=== PATIENT | male | born 1945 | race Caucasian/White ===

== ENCOUNTER 2019-03-26 07:56 | Inpatient (IN) | payer MEDICARE ==
[~2019-03-26] VITALS: Ht 167.7 cm; Wt 70.8 kg
[2019-03-26] MEDS ORDERED: LOPERAMIDE 2 MG (IMODIUM) TABLET PO PRN (08:45)
[2019-03-26] MEDS ORDERED: ALPRAZolam 0.25 MG (XANAX) TAB PO PRN (08:45)
[2019-03-26] MEDS ORDERED: ONDANSETRON 4 MG (ZOFRAN) ORAL DISSOLVE TAB PO PRN (08:45)
[2019-03-26] MEDS ORDERED: LACTULOSE SYRUP 10GM/15ML (ENULOSE) 30ML UDC PO PRN (08:45)
[2019-03-26] MEDS ORDERED: MELATONIN 3 MG TABLET PO PRN (08:45)
[2019-03-26] MEDS ORDERED: ACETAMINOPHEN 500 MG TAB (TYLENOL) PO PRN (08:45)
[2019-03-26] MEDS ORDERED: DOCUSATE SODIUM 100 MG (COLACE) CAP PO PRN (08:45)
[2019-03-26] MEDS ORDERED: diphenhydrAMINE 25 MG TAB (BENADRYL) PO PRN (08:45)
--- NOTE | 2019-03-26 10:00 | NUR ---
Pietrochantal Cabral admitted to room 231-1, with an admitting diagnosis of L 3-4 LIF with Right Facetectomy, on 03/26/19 from [facility] via private vehicle, accompanied by .PIETRO CABRAL introduced to surroundings, call light, bed controls, phone, TV, temperature control, lights, meal times, smoking policy, visitor policy, side rail policy, bathrooms and showers. Patient Rights given to patient in the handbook.PIETRO CABRAL verbalizes understanding that [facility] is not responsible for the loss or damage to any personal effects or valuables that are kept in the patients possession during their hospitalization. The following Patient Care Plans were discussed with the patient and : Discharge Planning,Impaired Mobility, and Post Surgical Cares. PIETRO CABRAL verbalizes understanding of Interdisciplinary Patient Education. Patient received Patient Rights Booklet, which includes Privacy Act Statement and Data Collection Information Summary.
[2019-03-26] MEDS: SENNA W/DOCUSATE (SENOKOT S) TABLET PO SCH ×2 (11:12→20:53)
[2019-03-26] MEDS: POLYETHYLENE GLYCOL 17 GM (MIRALAX) PACK PO SCH ×2 (11:12→20:54)
--- NOTE | 2019-03-26 11:28 | Occupational Therapy Eval ---
OT Evaluation-General/PLF Medical Diagnosis Admission Date Mar 26, 2019 at 10:00 Medical Diagnosis: L3-4 DLIF/PSF Right facectomy Onset Date: Mar 24, 2019 Therapy Diagnosis Therapy Diagnosis: Weakness Weight Bear Status Weight Bearing Restriction: Weight Bearing/Tolerated Back brace on when up Referral Physician: Dr. 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 8-Aasfbrigqh-tnfnviz completes the activity by him/herself with no assistance from a helper. 5-Set-up or Clean-up Assistance-helper sets up or cleans up; patient completes activity. [place] assists only prior to or following the activity. 4-Supervision or Touching Assistance-helper provides verbal cues and/or touching/steadying and/or contact guard assistance as patient completes activity. Assistance may be provided throughout the activity or intermittently. 3-Partial/Moderate Assistance-helper does LESS THAN HALF the effort. [place] lifts, holds or supports trunk or limbs, but provides less than half the effort. 2-Substantial/Maximal Assistance-helper does MORE THAN HALF the effort. [place] lifts or holds trunk or limbs and provides more than half the effort. 5-Zbzoldrkq-hlvvbh does ALL the effort. Patient does none of the effort to complete the activity. Or, the assistance of 2 or more helpers is required for the patient to complete the activity. If activity was not attempted, code reason: 7-Patient Refused. 9-Not Applicable-not attempted and the patient did not perform the activity before the current illness, exacerbation or injury. 10-Not Attempted due to Environmental Limitations-(lack of equipment, weather restraints, etc.). 88-Not Attempted due to Medical Conditions or Safety Concerns. ADL PLOF Comments Pt. used a cane occasionally but was generally independent with ADLs. Self Care: Independent Functional Cognition: Unknown DME/Equipment: Shower DME/Equipment Comments Pt. has walker as well. Drive Self: Yes OT Current Status Subjective Pt. reports 01/15. Pt. has just arrived. Nursing working on medications. Appearance Pt. up with back brace on. Mental Status/Objective Patient Orientation: Person Current Hand Dominance: Right Upper Extremity ROM Pt. is able to lift bilateral UE to approximately 100 degrees. Upper Extremity Strength NT due to back surgery. ADL-Treatment Eating (QC): 7 Oral Hygiene (QC): 7 Shower/Bathe Self (QC): 88 Upper Body Dressing (QC): 7 Lower Body Dressing (QC): 7 On/Off Footwear (QC): 1 Toileting Hygiene (QC): 7 Toilet Transfer (QC): 7 Other Treatments Pt. seen for partial co-treatment with PT. Due to fatigue, car ride, pain, and limited ability, OT facilitated ADL treatment while PT focused on mobility and transfers. Pt. ambulated with CGA with slow paces. Assist of two to ambulate up/down steps, (see PT note.) Ambulated back to room and declines all attempts to toilet, change clothes. Pt. requests to lay down. Attempted to doff socks but unable to bring feet up to him while seated. Pt. able to doff back brace with slow movements. Mod assist for sit-supine and max assist for bed mobility with this therapist. Pt. immediately fell asleep. All needs met. Education OT Patient Education: Correct positioning, Modified ADL techniques, Progress adri [place] Goal/Update tx plan, Purpose of tx/functional activities, Reviewed precautions, Rehab process, Transfer techniques Teaching Recipient: Patient, Family Teaching Methods: Demonstration, Discussion Response to Teaching: Verbalize Understanding, Return Demonstration OT Short Term Goals Short Term Goals Time Frame: Apr 02, 2019 Eating(FIM): 5 Grooming(FIM): 4 Bathing(FIM): 4 Upper Body Dressing(FIM): 4 Lower Body Dressing(FIM): 4 Toileting(FIM): 4 Transfers (B,C,W/C) (FIM): 4 Toilet/Commode Transfer(FIM): 4 Shower Transfer(FIM): 4 Additional Short Term Goals: 1-Demonstrate ADL Tasks, 2-Verbalize Understanding, 3-ImproveStrength/Edmund 1=Demonstrate adherence to instructed precautions during ADL tasks. 2=Patient will verbalize/demonstrate understanding of assistive devices/modifications for ADL. 3=Patient will improve strength/tolerance for activity to enable patient to perform ADL's. OT Fci Goals Fci Goals Time Frame: Apr 09, 2019 Eating (QC): 6 Oral Hygiene (QC): 6 Shower/Bathe Self (QC): 4 Upper Body Dressing (QC): 5 Lower Body Dressing (QC): 5 On/Off Footwear (QC): 5 Toileting Hygiene (QC): 6 Toilet/Commode Transfer (QC): 6 Additional Goals: 1-Demonstrate ADL Tasks, 2-Verbalize Understanding, 3- ImproveStrength/Edmund 1=Demonstrate adherence to instructed precautions during ADL tasks. 2=Patient will verbalize/demonstrate understanding of assistive devices/modifications for ADL. 3=Patient will improve strength/tolerance for activity to enable patient to perform ADL's. OT Education/Plan Problem List/Assessment Assessment: Decreased Activ Tolerance, Decreased UE Strength, Dependent Transfers, Impaired Bed Mobility, Impaired Funct Balance, Impaired I ADL's, Impaired Self-Care Skills, Restricted Funct UE ROM Discharge Recommendations Plan/Recommendations: Continue POC Therapy Discharge Recommendati: Post Acute OT Equpiment Recommendations-D/C: Bath Chair, Hip Kit Treatment Plan/Plan of Care Treatment,Training & Education: Yes Patient would benefit from OT for education, treatment and training to promote independence in ADL's, mobility, safety and/or upper extremity function for ADL's. Plan of Care: ADL Retraining, Functional Mobility, UE Funct Exercise/Act Treatment Duration: Apr 09, 2019 Frequency: At least 5 of 7 days/Wk (IRF) Estimated Hrs Per Day: 1.5 hours per day Agreement: Yes Rehab Potential: Good Time/GCodes Start Time: 10:45 Stop Time: 11:10 Total Time Billed (hr/min): 25 Billed Treatment Time 2843-4578 1, EVM x 10minutes- co-treat with PT, no PT charge Please see above for designated roles. [id number] ADL x 15minutes ZACHERY SULLIVAN OT Mar 26, 2019 11:27
[2019-03-26 11:49] VITALS: BP 142/85
--- NOTE | 2019-03-26 11:53 | Physical Therapy Evaluation ---
PT Evaluation-General Medical Diagnosis Admission Date Mar 26, 2019 at 10:00 Medical Diagnosis: L3-4 DLIF/PSF Right facectomy Onset Date: Mar 24, 2019 Therapy Diagnosis Therapy Diagnosis: weakness, decreased functional mobility Precautions Precautions/Isolations: Fall Prevention, Standard Precautions Weight Bear Status Right Lower Extremity: Right Full Weight Bearing Left Lower Extremity: Left Full Weight Bearing Referral Physician: Dr. Saldana Reason for Referral: Evaluation/Treatment Medical History Pertinent Medical History: CVA, HTN Additional Medical History TIA, mass in lungs, OA, back Sx x 2 (Most recent L4-5 PSIF three years ago), early dementia Current History Pt underwent L3-4 DLIF/PSF (R) facetomy on 03/24 at outside facility. Transfer to ARU this date. Reviewed History: Yes Social History Home: Single Level Current Living Status: Spouse Entry Into Home: Stairs With Railing PT Steps Into Home: 5 Prior Prior Level of Function SCALE: Activities may be completed with or without assistive devices. 7-Pqinlodfqm-lwaccto completes the activity by him/herself with no assistance from a helper. 5-Set-up or Clean-up Assistance-helper sets up or cleans up; patient completes activity. [place] assists only prior to or following the activity. 4-Supervision or Touching Assistance-helper provides verbal cues and/or touching/steadying and/or contact guard assistance as patient completes a ctivity. Assistance may be provided throughout the activity or intermittently. 3-Partial/Moderate Assistance-helper does LESS THAN HALF the effort. [place] lifts, holds or supports trunk or limbs, but provides less than half the effort. 2-Substantial/Maximal Assistance-helper does MORE THAN HALF the effort. [place] lifts or holds trunk or limbs and provides more than half the effort. 1-Bbfcehrqb-yccvcg does ALL the effort. Patient does none of the effort to complete the activity. Or, the assistance of 2 or more helpers is required for the patient to complete the activity. If activity was not attempted, code reason: 7-Patient Refused. 9-Not Applicable-not attempted and the patient did not perform the activity before the current illness, exacerbation or injury. 10-Not Attempted due to Environmental Limitations-(lack of equipment, weather restraints, etc.). 88-Not Attempted due to Medical Conditions or Safety Concerns. Bed Mobility: 6 Transfers (B,C,W/C): 6 Gait: 6 Stairs: 6 Indoor Mobility (Ambulation): Independent Stairs: Independent Prior Devices Use: Other-see list below Prior Device Use: occasional use of SPC for balance PT Evaluation-Current Subjective Pt in [facility], agreeable to PT. Reports that (R) LE radicular pain that was present prior to surgery is gone "But this (L) hip is really giving me trouble". Rates (R) hip and low back at 2/10, (L) posterior hip at 7/10. Objective Patient Orientation: Person, Place, Time, Situation Problem Solving: Fair Attachments: Other-See Comments Back brace on when up ROM/Strength ROM Upper Extremities See OT ROM Lower Extremities Grossly WFL for functional mobility Strength Upper Extremities See OT Strength Lower Extremities Grossly 3/5. No resistance given due to recent lumbar Sx Integumentary/Posture Integumentary See nurses' notes Posture Flexed posture, forward head Neuromuscular (Tone, Coordination, Reflexes) Grossly WFL Sensory Vision: Wears Glasses (reading only) Hearing: Functional Hand Dominance: Right Sensation Right Lower Extremit: Intact Sensation Left Lower Extremity: Intact Transfers Roll Left to Right (QC): 4 Sit to Lying (QC): 2 Lying to Sitting/Side of Bed(Q: 2 Sit to Stand (QC): 3 Chair/Tdx-wp-Rsijb Xfer(QC): 4 Car Transfer (QC): 3 Gait Does the Patient Walk?: Yes Mode of Locomotion: Walk Anticipated Mode of Locomotion: Walk Distance (FIM): 3=150 ft Walk 10 feet (QC): 4 Walk 50 ft with 2 Turns(QC): 4 Walk 150 ft (QC): 4 Walking 10ft/uneven surface-QC: 4 Distance: 150 Gait Assistive Device: FWW Comments/Gait Description Very slow, shuffling gait. Narrow base of support, flexed posture. Wheelchair Training Does the Pt Use a Wheelchair?: No Stairs #of Steps: 4 1 Step (curb) (QC): 4 4 Steps (QC): 4 12 Steps (QC): 88 12 steps not attempted due to high pain rating in (L) hip and recent lumbar surgery. At PLOF, Pt only performed 5 steps (shorter than standard height) Balance Sitting Static: Good Sitting Dynamic: Good Standing Static: Fair Standing Dynamic: Fair Picking up an Object (QC): 88 (Not attempted due to recent back surgery/back precautions) Treatment Gait training on stairs; Frequent skilled VCS for safe sequencing on stairs. Hand-off to OT. Assessment/Needs Pt is 2 days s/p L3-4 DLIF/PSF (R) facetomy. Pt would benefit from skilled PT to improve functional strength and (I) with functional mobility to allow safe return home with spouse with decreased caregiver burden. Rehab Potential: Good PT Short Term Goals Short Term Goals Time Frame: Mar 30, 2019 Gait Distance Comment: 150 mod (I) Gait Assistive Device: FWW PT Glass Block Installer Goals Glass Block Installer Goals PT Glass Block Installer Goals Time Frame: Apr 09, 2019 Sit to Lying (QC): 6 Lying-Sitting on Side/Bed(QC): 6 Sit to Stand (QC): 6 Roll Left to Right (QC): 6 Chair/Rnj-xm-Jpzrr Xfer(QC): 6 Car Transfer (QC): 5 Does the Patient Walk: Yes Distance: 150 Walk 10 feet (QC): 6 Walk 10ft-Uneven Surface(QC): 6 Walk 50ft with 2 Turns (QC): 6 Walk 150 ft (QC): 6 Gait Level of Assist: 6 Gait Assistive Device: FWW Does the Pt use WC or Scooter?: No 1 Step (curb) (QC): 5 4 Steps (QC): 5 12 Steps (QC): 4 Stairs Level Of Assist: 5 Picking up an Object (QC): 4 (with adaptive equipment to remain compliant with back precautions) LTGs established to allow safe return home with spouse with decreased caregiver burden PT Plan Problem List Problem List: Activity Tolerance, Functional Strength, Safety, Balance, Gait, Transfer, Bed Mobility, ROM Treatment/Plan Treatment Plan: Continue Plan of Care Treatment Plan: Bed Mobility, Education, Functional Activity Edmund, Functional Strength, Group Therapy, Gait, Safety, Therapeutic Exercise, Transfers Treatment Duration: Apr 09, 2019 Frequency: At least 5 of 7 days/Wk (IRF) Estimated Hrs Per Day: 1.5 hours per day Patient and/or Family Agrees t: Yes Safety Risks/Education Patient Education: Transfer Techniques Teaching Recipient: Patient Teaching Methods: Discussion Response to Teaching: Reinforcement Needed Reviewed log-rolling, back precautions. Reviewed role of PT and expectations on ARU. Discharge Recommendations Therapy Discharge Recommendati: Post Acute PT (Continue to assess but possible HH for home safety eval) Barriers to Progress reported early dementia Time/GCodes Time In: 1019 Time Out: 1103 Total Billed Treatment Time: 34 Total Billed Treatment [id number] Eval (mod) x 24' [id number] (unattended for OT eval) 1141-4408 (gait training on stairs) NATHALIE RAPHAEL DPJaguar Mar 26, 2019 11:53
--- NOTE | 2019-03-26 12:34 | PM&R H&P / Post Admit Assess ---
History of Present Illness HPI/Chief Complaint Chief complaint: Debility following lumbar spine surgery with myelopathy History of present illness: This is a 74-year-old white male clinic patient of Dr. Dougherty who has a past medical history of hypertension, hyperlipidemia, BPH managed by urology Dr. Woods and transition ischemic attacks with subsequent presumed vascular dementia managed by neurology at [facility] who presents following an uncomplicated lumbar spine surgery but having a slow recovery in need of intensive rehabilitation prior to going home with his . He is having quite a bit of poor recall did not recall having surgery but he does remember talking to me for 2 days over at [place] at [facility] where I was consulted. He was having urinary retention shortly after surgery so I did go ahead and recheck out to his urologist who gave the nurse orders for post void residual bladder scanning. He has not had a bowel movement since before surgery. His is very aware of the fact that dementia will preclude a fast recovery but he is in the midst of evaluation from PT and OT in order to regain as much function as quickly as possible. He denies any current pain. I do review his home medication and my consult report. Source: patient, RN/MD, old records Exam Limitations: clinical condition, other (dementia) Date Seen 03/26/19 Time Seen by a Provider: 12:00 Attending Physician Annette Saldana DO PCP Helder Dougherty MD Referring Physician Date of Admission Mar 26, 2019 at 10:00 Home Medications & Allergies Home Medications Reviewed patient Home Medication Reconciliation performed by pharmacy medication reconciliations strain technician and/or nursing. Patients Allergies have been reviewed. 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) Alcohol Use: Denies Use Recreational Drug Use: No Smoking Status: Current Everyday Smoker Type Used: Electronic/Vapor Physical Abuse Screen: No Sexual Abuse: No Recent Foreign Travel: No Contact w/other who traveled: No Recent Infectious Disease Expo: No Past Medical History Surgeries: Orthopedic hernia repair 2 small lung mass Cardiac: High Cholesterol, Hypertension Neurological: Dementia, TIA Genitourinary: Benign Prostatic Hyperpl Gastrointestinal: Chronic Constipation Musculoskeletal: Arthritis, Chronic Back Pain Endocrine: Diabetes, Non-Insulin dep Review of Systems Constitutional: see HPI, dizziness, malaise, weakness EENTM: no symptoms reported Respiratory: no symptoms reported Cardiovascular: no symptoms reported Gastrointestinal: constipation Genitourinary: decreased output, incontinence Musculoskeletal: back pain, joint pain Skin: no symptoms reported Psychiatric/Neurological: Depressed All Other Systems Reviewed Negative Unless Noted: Yes Physical Exam Exam Vital Signs Vital Signs Date Time Temp Pulse Resp B/P (MAP) Pulse Ox O2 Delivery O2 Flow Rate FiO2 03/26/19 11:49 37.2 116 20 142/85 95 Room Air Capillary Refill : General Appearance: No Apparent Distress, WD/WN, Chronically ill, Thin, Other (frail) HEENT: PERRL/EOMI, Normal ENT Inspection, Pharynx Normal, Moist Mucous Membranes Neck: Full Range of Motion, Normal Inspection, Non Tender, Supple Respiratory: Chest Non Tender, Lungs Clear, Normal Breath Sounds, No Accessory Muscle Use, No Respiratory Distress Cardiovascular: Regular Rate, Rhythm, No Edema, No Gallop, No JVD, No Murmur Gastrointestinal: Normal Bowel Sounds, No Organomegaly, No Pulsatile Mass, Non Tender, Soft Back: Decreased Range of Motion, Muscle Spasm, Vertebral Tenderness Extremity: Normal Capillary Refill, Normal Inspection, Normal Range of Motion, Non Tender, No Calf Tenderness, No Pedal Edema Neurologic/Psychiatric: Alert, No Motor/Sensory Deficits, certified pathology assistant II-XII Norm as Tested, Depressed Affect, Other (poor memory recall) Skin: Normal Color, Warm/Dry Lymphatic: No Adenopathy Results Results/Procedures Labs Patient resulted labs reviewed. Assessment/Plan Assessment and Plan Assess & Plan/Chief Complaint Assessment: Status post uncomplicated lumbar spine surgery with myelopathy with slow recovery Dementia TIA history Smoker Hypertension Hyperlipidemia Chronic constipation BPH New urinary incontinence Diabetes mellitus Plan: Appreciate urology consultation Inpatient rehabilitation protocol Pain control Monitor blood sugar Check labs in a.m. Bowel regimen (1) Lumbar myelopathy (2) Dementia (3) Hx TIA/stroke w/o resid (4) Smoker (5) Hypertension (6) Hyperlipidemia (7) Diabetes mellitus (8) BPH (benign prostatic hyperplasia) (9) Urinary incontinence (10) Constipation (11) Frailty Post Admission Physician Asses Date seen by provider: Mar 26, 2019 Time seen by provider: 12:00 Admisison Dx: (1) Lumbar myelopathy The preadmission screen agrees with the post admission assessment that the patient is a good candidate for inpatient rehabilitation. The patient will have a comprehensive program of inpatient rehabilitation with a goal of maximizing level of functional independence prior to discharge home with . The patient will have PT/OT ninety minutes per day, each discipline, five days a week for gait, strengthening, conditioning, balance, ADLs, any patient/family/caregiver training as necessary. Speech therapy to do cognitive assessment and treat as indicated. Rehabilitation nursing to assist with bowel, bladder, skin, wound care, medication administration, pain management. Mining Machinery Assembler to assist with discharge planning, community reentry. SCD's for DVT prophylaxis. He appears to be well motivated to participate in three hours of therapy a day. He should be able to tolerate three hours of therapy a day from a medical standpoint. He should benefit from the three hours of therapy a day. He has a reasonable discharge plan, reasonable discharge rehabilitation goals and a supportive family. He has various comorbidities that need to be closely monitored with medications and treatments adjusted on a daily basis as needed. These include: See list Barriers to discharge for this patient who had been independent prior to this are for him to be modified independent to supervision for ADLs and mobility skills prior to discharge home with , so as to lessen the burden of the car egivers. Risks for this patient include: 1. Fall 2. Fracture 3. DVT 4. Pulmonary embolism 5. Wound infection 6. Skin breakdown 7. Contractures 8. Poorly controlled pain 9. Urinary retention 10. UTI 11. Respiratory infection 12. Aspiration Estimated Length of Stay: 14 days Prognosis: Rehab prognosis appears good for goal of discharge home with modified independent to supervision for ADLs and mobility skills. ANNETTE SALDANA DO Mar 26, 2019 12:34
[2019-03-26] MEDS ORDERED: BACLOFEN 10 MG (LIORESAL) TAB PO PRN (12:45)
[2019-03-26] MEDS ORDERED: MULTIVIT W/MINERALS TAB (THERAGRAN M) PO ONE (12:45)
[2019-03-26] MEDS: HYDROcodone/APAP 10 MG/325 MG (LORTAB) TAB PO PRN ×2 (13:48→19:40)
--- NOTE | 2019-03-26 14:30 | NUR ---
Pt states she does not feel up bathing today. Pt states she would just like to go to bed and relax. Pt refuses incision site bandage change. Bandage is intact/clean/dry. Addendum: 03/26/19 at 1603 by DAYNA MEMBRENO RN Disregard note
[2019-03-26] MEDS ORDERED: FLU QUADRIvalent (5+ YOA) 2019-2020 (AFLURIA) 0.5 ML IM ONE (14:45)
[2019-03-26] MEDS: metFORMIN 500 MG (GLUCOPHAGE) TAB PO SCH (17:49)
[2019-03-26] MEDS: TROSPIUM 20 MG (SANCTURA) TAB PO SCH (17:49)
[2019-03-26] MEDS: TAMSULOSIN 0.4 MG (FLOMAX) CAP PO SCH (17:50)
[2019-03-26 18:00] VITALS: BP 150/98
[2019-03-26 20:51] VITALS: BP 170/96
[2019-03-26] MEDS: NIACIN 500 MG TABLET PO SCH (20:53)
[2019-03-26] MEDS: TOLTERODINE LA 4 MG (DETROL) CAP PO SCH (20:54)
[2019-03-26] MEDS: TERAZOSIN 2 MG (HYTRIN) CAP PO SCH (20:54)
[2019-03-26] MEDS: eZETimibe 10 MG (ZETIA) TABLET PO SCH (20:54)
[2019-03-26] MEDS: GABAPENTIN 100 MG (NEURONTIN) CAP PO SCH (20:54)
[2019-03-26 21:42] VITALS: BP 160/92
[2019-03-26 22:51] VITALS: BP 158/84
[2019-03-27] MEDS: HYDROcodone/APAP 10 MG/325 MG (LORTAB) TAB PO PRN ×4 (01:59→21:04)
[2019-03-27 05:29] VITALS: BP 150/78
[2019-03-27 05:40] LABS: BASOPHILS % (AUTO) 0 % (0-10); EOSINOPHILS % (AUTO) 0 % (0-10); HEMATOCRIT 35 % (40-54); HEMOGLOBIN 11.8 G/DL (13.3-17.7); LYMPHOCYTES # (AUTO) 1.8 X 10^3 (1.0-4.0); LYMPHOCYTES % (AUTO) 20 % (12-44); MEAN CORPUSCULAR HEMOGLOBIN 30 PG (25-34); MEAN CORPUSCULAR HGB CONC 34 G/DL (32-36); MEAN CORPUSCULAR VOLUME 89 FL (80-99); MONOCYTES # (AUTO) 1.3 X 10^3 (0.0-1.0); MONOCYTES % (AUTO) 14 % (0-12); NEUTROPHILS # (AUTO) 5.9 X 10^3 (1.8-7.8); NEUTROPHILS % (AUTO) 65 % (42-75); PLATELET COUNT 266 10^3/uL (130-400); RED CELL DISTRIBUTION WIDTH 14.2 % (10.0-14.5)
[2019-03-27] MEDS: TROSPIUM 20 MG (SANCTURA) TAB PO SCH ×2 (05:58→17:04)
[2019-03-27] MEDS: metFORMIN 500 MG (GLUCOPHAGE) TAB PO SCH ×2 (06:00→17:04)
[2019-03-27 06:12] LABS: ALANINE AMINOTRANSFERASE 14 U/L (0-55); ALBUMIN 3.5 GM/DL (3.2-4.5); ALKALINE PHOSPHATASE 80 U/L (40-136); BILIRUBIN,TOTAL 1.1 MG/DL (0.1-1.0); BUN/CREATININE RATIO 18; CALCIUM 9.7 MG/DL (8.5-10.1); CARBON DIOXIDE 21 MMOL/L (21-32); CHLORIDE 102 MMOL/L (98-107); CREATININE SERUM 1.01 MG/DL (0.60-1.30); GFR ESTIMATED > 60; GLUCOSE 200 MG/DL (70-105); POTASSIUM 3.7 MMOL/L (3.6-5.0); SODIUM 136 MMOL/L (135-145); TOTAL PROTEIN 6.3 GM/DL (6.4-8.2)
[2019-03-27 08:29] VITALS: BP 135/70
[2019-03-27] MEDS: SENNA W/DOCUSATE (SENOKOT S) TABLET PO SCH ×2 (08:49→21:00)
[2019-03-27] MEDS: amLODIPine 5 MG (NORVASC) TAB PO SCH (08:49)
[2019-03-27] MEDS: LORATADINE (CLARITIN) 10 MG TAB PO SCH (08:49)
[2019-03-27] MEDS: LOSARTAN 100 MG (COZAAR) TABLET PO SCH (08:50)
[2019-03-27] MEDS: glipiZIDE 5 MG (GLUCOTROL) TAB PO SCH (08:54)
[2019-03-27] MEDS: POLYETHYLENE GLYCOL 17 GM (MIRALAX) PACK PO SCH ×2 (09:00→20:59)
--- NOTE | 2019-03-27 13:25 | PM&R Progress Note ---
Subjective HPI/CC On Admission Date Seen by Provider: Mar 27, 2019 Time Seen by Provider: 13:00 Chief complaint: Debility following lumbar spine surgery with myelopathy History of present illness: This is a 74-year-old white male clinic patient of Dr. Dougherty who has a past medical history of hypertension, hyperlipidemia, BPH managed by urology Dr. Woods and transition ischemic attacks with subsequent presumed vascular dementia managed by neurology at [facility] who presents following an uncomplicated lumbar spine surgery but having a slow recovery in need of intensive rehabilitation prior to going home with his . He is having quite a bit of poor recall did not recall having surgery but he does remember talking to me for 2 days over at [place] at [facility] where I was consulted. He was having urinary retention shortly after surgery so I did go ahead and recheck out to his urologist who gave the nurse orders for post void residual bladder scanning. He has not had a bowel movement since before surgery. His is very aware of the fact that dementia will preclude a fast recovery but he is in the midst of evaluation from PT and OT in order to regain as much function as quickly as possible. He denies any current pain. I do review his home medication and my consult report. Objective Exam Vital Signs Vital Signs Date Time Temp Pulse Resp B/P (MAP) Pulse Ox O2 Delivery O2 Flow Rate FiO2 03/27/19 09:00 Room Air 03/27/19 08:29 135/70 (91) 03/27/19 05:29 36.7 96 20 95 Capillary Refill : Less Than 3 Seconds General Appearance: No Apparent Distress, WD/WN, Chronically ill, Thin, Other (frail) HEENT: PERRL/EOMI, Normal ENT Inspection, Pharynx Normal, Moist Mucous Membranes Neck: Full Range of Motion, Normal Inspection, Non Tender, Supple Respiratory: Chest Non Tender, Lungs Clear, Normal Breath Sounds, No Accessory Muscle Use, No Respiratory Distress Cardiovascular: Regular Rate, Rhythm, No Edema, No Gallop, No JVD, No Murmur Gastrointestinal: Normal Bowel Sounds, No Organomegaly, No Pulsatile Mass, Non Tender, Soft Back: Decreased Range of Motion, Muscle Spasm, Vertebral Tenderness Extremity: Normal Capillary Refill, Normal Inspection, Normal Range of Motion, Non Tender, No Calf Tenderness, No Pedal Edema Neurologic/Psychiatric: Alert, No Motor/Sensory Deficits, 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 FIM Transfers Therapy Code Descriptions/Definitions Functional [place] Measure: 0=Not Assessed/NA 4=Minimal Assistance 1=Total Assistance 5=Supervision or Setup 2=Maximal Assistance 6=Modified [place] 3=Moderate Assistance 7=Complete IndependenceSCALE: Activities may be completed with or without assistive devices. 9-Vwnrtxzpvx-whuzind completes the activity by him/herself with no assistance from a helper. 5-Set-up or Clean-up Assistance-helper sets up or cleans up; patient completes activity. [place] assists only prior to or following the activity. 4-Supervision or Touching Assistance-helper provides verbal cues and/or touching/steadying and/or contact guard assistance as patient completes activity. Assistance may be provided throughout the activity or intermittently. 3-Partial/Moderate Assistance-helper does LESS THAN HALF the effort. [place] lifts, holds or supports trunk or limbs, but provides less than half the effort. 2-Substantial/Maximal Assistance-helper does MORE THAN HALF the effort. [place] lifts or holds trunk or limbs and provides more than half the effort. 6-Xkygqzrqc-qcwahl does ALL the effort. Patient does none of the effort to complete the activity. Or, the assistance of 2 or more helpers is required for the patient to complete the activity. If activity was not attempted, code reason: 7-Patient Refused. 9-Not Applicable-not attempted and the patient did not perform the activity before the current illness, exacerbation or injury. 10-Not Attempted due to Environmental Limitations-(lack of equipment, weather restraints, etc.). 88-Not Attempted due to Medical Conditions or Safety Concerns. Roll Left to Right (QC): 4 Sit to Lying (QC): 2 Sit to Stand (QC): 3 Chair/Fov-jr-Sfkzp Xfer(QC): 4 Car Transfer (QC): 3 Gait Training Does the Patient Walk?: Yes Distance (FIM): 3=150 ft Walk 10 feet (QC): 4 Walk 50 ft with 2 Turns(QC): 4 Walk 150 ft (QC): 4 Walking 10ft/uneven surface-QC: 4 Gait Assistive Device: FWW Wheelchair Training Does the Pt Use a Wheelchair?: No Stair Training #of Steps: 4 1 Step (curb) (QC): 4 4 Steps (QC): 4 12 Steps (QC): 88 Balance Picking up an Object (QC): 88 ADL-Treatment Eating (QC): 7 Oral Hygiene (QC): 7 Shower/Bathe Self (QC): 88 Upper Body Dressing (QC): 7 Lower Body Dressing (QC): 7 On/Off Footwear (QC): 1 Toileting Hygiene (QC): 7 Toilet Transfer (QC): 7 Assessment/Plan Assessment and Plan Assess & Plan/Chief Complaint Assessment: Status post uncomplicated lumbar spine surgery with myelopathy with slow recovery Dementia TIA history Smoker Hypertension Hyperlipidemia Chronic constipation BPH New urinary incontinence Diabetes mellitus Plan: Appreciate urology consultation Inpatient rehabilitation protocol Pain control Monitor blood sugar Check labs in a.m. Bowel regimen (1) Lumbar myelopathy (2) Dementia (3) Hx TIA/stroke w/o resid (4) Smoker (5) Hypertension (6) Hyperlipidemia (7) Diabetes mellitus (8) BPH (benign prostatic hyperplasia) (9) Urinary incontinence (10) Constipation (11) Frailty LENNY CAVANAUGH DO Mar 27, 2019 13:25
[2019-03-27] MEDS: TAMSULOSIN 0.4 MG (FLOMAX) CAP PO SCH (17:04)
[2019-03-27] MEDS: CALCIUM CARBONATE 500 MG (TUMS) TAB.CHEW PO PRN ×2 (17:21→21:12)
--- NOTE | 2019-03-27 17:46 | PM&R Progress Note ---
Subjective HPI/CC On Admission Date Seen by Provider: Mar 27, 2019 Time Seen by Provider: 13:00 Chief complaint: Debility following lumbar spine surgery with myelopathy History of present illness: This is a 74-year-old white male clinic patient of Dr. Dougherty who has a past medical history of hypertension, hyperlipidemia, BPH managed by urology Dr. Woods and transition ischemic attacks with subsequent presumed vascular dementia managed by neurology at [facility] who presents following an uncomplicated lumbar spine surgery but having a slow recovery in need of intensive rehabilitation prior to going home with his . He is having quite a bit of poor recall did not recall having surgery but he does remember talking to me for 2 days over at [place] at [facility] where I was consulted. He was having urinary retention shortly after surgery so I did go ahead and recheck out to his urologist who gave the nurse orders for post void residual bladder scanning. He has not had a bowel movement since before surgery. His is very aware of the fact that dementia will preclude a fast recovery but he is in the midst of evaluation from PT and OT in order to regain as much function as quickly as possible. He denies any current pain. I do review his home medication and my consult report. Subjective/Events-last exam Patient doing very well Will have a hot shower after covering the spine dressing No pain since pain meds given BM+ Needs help to get OOB Eating ok now Accuchecks BID Labs ok Detrol LA started per Dr Woods PVR 0 Checked meds and labs Reviewed therapy notes Conferred with technology sales specialist of Systems General: Fatigue Musculoskeletal: back pain Neurological: Confusion Objective Exam Vital Signs Vital Signs Date Time Temp Pulse Resp B/P (MAP) Pulse Ox O2 Delivery O2 Flow Rate FiO2 03/27/19 09:00 Room Air 03/27/19 08:29 135/70 (91) 03/27/19 05:29 36.7 96 20 95 Capillary Refill : Less Than 3 Seconds General Appearance: No Apparent Distress, WD/WN, Chronically ill, Thin, Other (frail) HEENT: PERRL/EOMI, Normal ENT Inspection, Pharynx Normal, Moist Mucous Membranes Neck: Full Range of Motion, Normal Inspection, Non Tender, Supple Respiratory: Chest Non Tender, Lungs Clear, Normal Breath Sounds, No Accessory Muscle Use, No Respiratory Distress Cardiovascular: Regular Rate, Rhythm, No Edema, No Gallop, No JVD, No Murmur Gastrointestinal: Normal Bowel Sounds, No Organomegaly, No Pulsatile Mass, Non Tender, Soft Back: Decreased Range of Motion, Muscle Spasm, Vertebral Tenderness Extremity: Normal Capillary Refill, Normal Inspection, Normal Range of Motion, Non Tender, No Calf Tenderness, No Pedal Edema Neurologic/Psychiatric: Alert, No Motor/Sensory Deficits, 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 FIM Transfers Therapy Code Descriptions/Definitions Functional [place] Measure: 0=Not Assessed/NA 4=Minimal Assistance 1=Total Assistance 5=Supervision or Setup 2=Maximal Assistance 6=Modified [place] 3=Moderate Assistance 7=Complete IndependenceSCALE: Activities may be completed with or without assistive devices. 8-Abytopcxkj-zutuqup completes the activity by him/herself with no assistance from a helper. 5-Set-up or Clean-up Assistance-helper sets up or cleans up; patient completes activity. [place] assists only prior to or following the activity. 4-Supervision or Touching Assistance-helper provides verbal cues and/or touching/steadying and/or contact guard assistance as patient completes activity. Assistance may be provided throughout the activity or intermittently. 3-Partial/Moderate Assistance-helper does LESS THAN HALF the effort. [place] lifts, holds or supports trunk or limbs, but provides less than half the effort. 2-Substantial/Maximal Assistance-helper does MORE THAN HALF the effort. [place] lifts or holds trunk or limbs and provides more than half the effort. 8-Jlxkkqxsz-adssye does ALL the effort. Patient does none of the effort to complete the activity. Or, the assistance of 2 or more helpers is required for the patient to complete the activity. If activity was not attempted, code reason: 7-Patient Refused. 9-Not Applicable-not attempted and the patient did not perform the activity before the current illness, exacerbation or injury. 10-Not Attempted due to Environmental Limitations-(lack of equipment, weather restraints, etc.). 88-Not Attempted due to Medical Conditions or Safety Concerns. Roll Left to Right (QC): 4 Sit to Lying (QC): 2 Sit to Stand (QC): 3 Chair/Ejm-ex-Wcwhu Xfer(QC): 4 Car Transfer (QC): 3 Gait Training Does the Patient Walk?: Yes Distance (FIM): 3=150 ft Walk 10 feet (QC): 4 Walk 50 ft with 2 Turns(QC): 4 Walk 150 ft (QC): 4 Walking 10ft/uneven surface-QC: 4 Gait Assistive Device: FWW Wheelchair Training Does the Pt Use a Wheelchair?: No Stair Training #of Steps: 4 1 Step (curb) (QC): 4 4 Steps (QC): 4 12 Steps (QC): 88 Balance Picking up an Object (QC): 88 ADL-Treatment Eating (QC): 7 Oral Hygiene (QC): 7 Shower/Bathe Self (QC): 88 Upper Body Dressing (QC): 7 Lower Body Dressing (QC): 7 On/Off Footwear (QC): 1 Toileting Hygiene (QC): 7 Toilet Transfer (QC): 7 Assessment/Plan Assessment and Plan Assess & Plan/Chief Complaint Assessment: Status post uncomplicated lumbar spine surgery with myelopathy with slow recovery Dementia TIA history Smoker Hypertension Hyperlipidemia Chronic constipation BPH New urinary incontinence Diabetes mellitus Plan: Appreciate urology consultation Inpatient rehabilitation protocol Pain control Monitor blood sugar Check labs prn Bowel regimen to maintain (1) Lumbar myelopathy (2) Dementia (3) Hx TIA/stroke w/o resid (4) Smoker (5) Hypertension (6) Hyperlipidemia (7) Diabetes mellitus (8) BPH (benign prostatic hyperplasia) (9) Urinary incontinence (10) Constipation (11) Frailty LENNY CAVANAUGH DO Mar 27, 2019 17:46
[2019-03-27 17:55] VITALS: BP 134/90
[2019-03-27] MEDS: NIACIN 500 MG TABLET PO SCH (20:59)
[2019-03-27] MEDS: TERAZOSIN 2 MG (HYTRIN) CAP PO SCH (21:00)
[2019-03-27] MEDS: eZETimibe 10 MG (ZETIA) TABLET PO SCH (21:00)
[2019-03-27] MEDS: TOLTERODINE LA 4 MG (DETROL) CAP PO SCH (21:00)
[2019-03-27] MEDS: GABAPENTIN 100 MG (NEURONTIN) CAP PO SCH (21:01)
[2019-03-28 05:11] VITALS: BP 100/63
[2019-03-28] MEDS: metFORMIN 500 MG (GLUCOPHAGE) TAB PO SCH ×2 (06:04→17:02)
[2019-03-28] MEDS: TROSPIUM 20 MG (SANCTURA) TAB PO SCH ×2 (06:04→17:03)
[2019-03-28 09:07] VITALS: BP 115/78
[2019-03-28] MEDS: LORATADINE (CLARITIN) 10 MG TAB PO SCH (09:10)
[2019-03-28] MEDS: HYDROcodone/APAP 10 MG/325 MG (LORTAB) TAB PO PRN ×3 (09:11→18:55)
[2019-03-28] MEDS: glipiZIDE 5 MG (GLUCOTROL) TAB PO SCH (09:11)
[2019-03-28] MEDS: SENNA W/DOCUSATE (SENOKOT S) TABLET PO SCH ×2 (09:27→20:28)
[2019-03-28] MEDS: POLYETHYLENE GLYCOL 17 GM (MIRALAX) PACK PO SCH ×2 (09:28→20:22)
[2019-03-28] MEDS: LOSARTAN 100 MG (COZAAR) TABLET PO SCH (09:29)
[2019-03-28] MEDS: amLODIPine 5 MG (NORVASC) TAB PO SCH (09:29)
--- NOTE | 2019-03-28 09:38 | Progress Note - Urology ---
Progress Note-Urology Progress Notes/Assess & Plan Progress/Assessment & Plan DOING BETTER ON DETROL LA. TOLERATES IT WELL Final Diagnosis BPH AND OAB SHIRLEY HOBBS MD Mar 28, 2019 09:38
--- NOTE | 2019-03-28 10:22 | PM&R Progress Note ---
Subjective HPI/CC On Admission Date Seen by Provider: Mar 28, 2019 Time Seen by Provider: 08:30 Chief complaint: Debility following lumbar spine surgery with myelopathy History of present illness: This is a 74-year-old white male clinic patient of Dr. Dougherty who has a past medical history of hypertension, hyperlipidemia, BPH managed by urology Dr. Woods and transition ischemic attacks with subsequent presumed vascular dementia managed by neurology at [facility] who presents following an uncomplicated lumbar spine surgery but having a slow recovery in need of intensive rehabilitation prior to going home with his . He is having quite a bit of poor recall did not recall having surgery but he does remember talking to me for 2 days over at [place] at [facility] where I was consulted. He was having urinary retention shortly after surgery so I did go ahead and recheck out to his urologist who gave the nurse orders for post void residual bladder scanning. He has not had a bowel movement since before surgery. His is very aware of the fact that dementia will preclude a fast recovery but he is in the midst of evaluation from PT and OT in order to regain as much function as quickly as possible. He denies any current pain. I do review his home medication and my consult report. Subjective/Events-last exam Pt up and around and wants a hot shower Denies any significant issues overnight Still slow recovery but doing much better Overall benefitting from intensive therapy and structure Checked meds and labs Reviewed therapy notes Conferred with manager customer of Systems General: Fatigue Musculoskeletal: back pain Neurological: Confusion Objective Exam Vital Signs Vital Signs Date Time Temp Pulse Resp B/P (MAP) Pulse Ox O2 Delivery O2 Flow Rate FiO2 03/28/19 18:45 37.2 118 20 95/64 (74) 95 Room Air Capillary Refill : Less Than 3 Seconds General Appearance: No Apparent Distress, WD/WN, Chronically ill, Thin, Other (frail) HEENT: PERRL/EOMI, Normal ENT Inspection, Pharynx Normal, Moist Mucous Membranes Neck: Full Range of Motion, Normal Inspection, Non Tender, Supple Respiratory: Chest Non Tender, Lungs Clear, Normal Breath Sounds, No Accessory Muscle Use, No Respiratory Distress Cardiovascular: Regular Rate, Rhythm, No Edema, No Gallop, No JVD, No Murmur Gastrointestinal: Normal Bowel Sounds, No Organomegaly, No Pulsatile Mass, Non Tender, Soft Back: Decreased Range of Motion, Muscle Spasm, Vertebral Tenderness Extremity: Normal Capillary Refill, Normal Inspection, Normal Range of Motion, Non Tender, No Calf Tenderness, No Pedal Edema Neurologic/Psychiatric: Alert, No Motor/Sensory Deficits, 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 FIM Transfers Therapy Code Descriptions/Definitions Functional [place] Measure: 0=Not Assessed/NA 4=Minimal Assistance 1=Total Assistance 5=Supervision or Setup 2=Maximal Assistance 6=Modified [place] 3=Moderate Assistance 7=Complete IndependenceSCALE: Activities may be completed with or without assistive devices. 7-Viwdlndvac-fpdgxcb completes the activity by him/herself with no assistance from a helper. 5-Set-up or Clean-up Assistance-helper sets up or cleans up; patient completes activity. [place] assists only prior to or following the activity. 4-Supervision or Touching Assistance-helper provides verbal cues and/or touching/steadying and/or contact guard assistance as patient completes activity. Assistance may be provided throughout the activity or intermittently. 3-Partial/Moderate Assistance-helper does LESS THAN HALF the effort. [place] lifts, holds or supports trunk or limbs, but provides less than half the effort. 2-Substantial/Maximal Assistance-helper does MORE THAN HALF the effort. [place] lifts or holds trunk or limbs and provides more than half the effort. 5-Wnoamnnwp-wsrxef does ALL the effort. Patient does none of the effort to complete the activity. Or, the assistance of 2 or more helpers is required for the patient to complete the activity. If activity was not attempted, code reason: 7-Patient Refused. 9-Not Applicable-not attempted and the patient did not perform the activity before the current illness, exacerbation or injury. 10-Not Attempted due to Environmental Limitations-(lack of equipment, weather restraints, etc.). 88-Not Attempted due to Medical Conditions or Safety Concerns. Roll Left to Right (QC): 4 Sit to Lying (QC): 2 Sit to Stand (QC): 3 Chair/Trj-wi-Yxjli Xfer(QC): 4 Car Transfer (QC): 3 Gait Training Does the Patient Walk?: Yes Distance (FIM): 3=150 ft Walk 10 feet (QC): 4 Walk 50 ft with 2 Turns(QC): 4 Walk 150 ft (QC): 4 Walking 10ft/uneven surface-QC: 4 Gait Assistive Device: FWW Wheelchair Training Does the Pt Use a Wheelchair?: No Stair Training #of Steps: 4 1 Step (curb) (QC): 4 4 Steps (QC): 4 12 Steps (QC): 88 Balance Picking up an Object (QC): 88 ADL-Treatment Eating (QC): 7 Oral Hygiene (QC): 7 Shower/Bathe Self (QC): 88 Upper Body Dressing (QC): 7 Lower Body Dressing (QC): 7 On/Off Footwear (QC): 1 Toileting Hygiene (QC): 7 Toilet Transfer (QC): 7 Assessment/Plan Assessment and Plan Assess & Plan/Chief Complaint Assessment: Status post uncomplicated lumbar spine surgery with myelopathy with slow recovery Dementia TIA history Smoker Hypertension Hyperlipidemia Chronic constipation BPH New urinary incontinence Diabetes mellitus Plan: Appreciate urology consultation Inpatient rehabilitation protocol Pain control Monitor blood sugar Check labs prn Bowel regimen to maintain (1) Lumbar myelopathy (2) Dementia (3) Hx TIA/stroke w/o resid (4) Smoker (5) Hypertension (6) Hyperlipidemia (7) Diabetes mellitus (8) BPH (benign prostatic hyperplasia) (9) Urinary incontinence (10) Constipation (11) Frailty LENNY CAVANAUGH DO Mar 28, 2019 10:22
--- NOTE | 2019-03-28 10:54 | Occupational Ther Daily Note ---
OT Current Status-Daily Note Subjective Pt alert, sitting in chair. Pt agrees to therapy. No c/o pain at this time. Mental Status/Objective Patient Orientation: Person, Place, Time, Situation Attachments: Other-See Comments (back brace) ADL-Treatment Pt agrees to shower. CGA for sit <--> stand and verbal cues for hand placement. CGA ambulation to bathroom then transferred to toilet using FWW and grabbars, CGA with verbal cues for hand placement. Pt able to manipulate clothing and cleanse self with CGA using FWW and grabbars for toileting. Ambulated using FWW to shower, CGA using FWW, grabbars and shower bench to transfer into shower. While sitting on shower bench, pt bathed all areas except buttocks/collin area, assist to bathe feet. CGA in standing while pt cleansed buttocks and collin area. Pt rinsed all areas and dried all areas with CGA, assist with feet due to back precautions. After set up, pt able to don/doff shirt and back brace. Assist to thread feet into pants due to back precautions then CGA in standing while pt hiked pants over hips, pants fell to ankles assist to bring to knees due to back precautions. Assist to don/doff socks and shoes due to back precautions. Pt introduced to lower body dressing equipment, will educate and have pt use in 2nd treatment. Pt completed grooming and oral care at sink while sitting. Ambulated to chair with CGA. Left in care of CINEMA OR THEATRE MANAGER. All needs met in room. Therapy Code Descriptions/Definitions Functional [place] Measure: 0=Not Assessed/NA 4=Minimal Assistance 1=Total Assistance 5=Supervision or Setup 2=Maximal Assistance 6=Modified [place] 3=Moderate Assistance 7=Complete IndependenceSCALE: Activities may be completed with or without assistive devices. 9-Vhxegyrwdb-vfbjapl completes the activity by him/herself with no assistance from a helper. 5-Set-up or Clean-up Assistance-helper sets up or cleans up; patient completes activity. [place] assists only prior to or following the activity. 4-Supervision or Touching Assistance-helper provides verbal cues and/or touching/steadying and/or contact guard assistance as patient completes activity. Assistance may be provided throughout the activity or intermittently. 3-Partial/Moderate Assistance-helper does LESS THAN HALF the effort. [place] lifts, holds or supports trunk or limbs, but provides less than half the effort. 2-Substantial/Maximal Assistance-helper does MORE THAN HALF the effort. [place] lifts or holds trunk or limbs and provides more than half the effort. 9-Eddltynob-paoert does ALL the effort. Patient does none of the effort to comp lete the activity. Or, the assistance of 2 or more helpers is required for the patient to complete the activity. If activity was not attempted, code reason: 7-Patient Refused. 9-Not Applicable-not attempted and the patient did not perform the activity before the current illness, exacerbation or injury. 10-Not Attempted due to Environmental Limitations-(lack of equipment, weather restraints, etc.). 88-Not Attempted due to Medical Conditions or Safety Concerns. Eating (QC): 6 (Pt demonstrates ability to open containers/packages by self and use regular utensils to eat.) Oral Hygiene (QC): 6 Bathing Location: L Arm, R Arm, L Upper Leg, R Upper Leg, Chest, Abdomen, Buttocks, Perineal Area Shower/Bathe Self (QC): 3 Upper Body Dressing (QC): 5 Lower Body Dressing (QC): 2 Toileting Hygiene (QC): 4 Toilet Transfer (QC): 4 OT Short Term Goals Short Term Goals Time Frame: Apr 02, 2019 Eating(FIM): 5 Grooming(FIM): 4 Bathing(FIM): 4 Upper Body Dressing(FIM): 4 Lower Body Dressing(FIM): 4 Toileting(FIM): 4 Transfers (B,C,W/C) (FIM): 4 Toilet/Commode Transfer(FIM): 4 Shower Transfer(FIM): 4 Additional Short Term Goals: 1-Demonstrate ADL Tasks, 2-Verbalize Understanding, 3-ImproveStrength/[place] 1=Demonstrate adherence to instructed precautions during ADL tasks. 2=Patient will verbalize/demonstrate understanding of assistive devices/modif ications for ADL. 3=Patient will improve strength/tolerance for activity to enable patient to perform ADL's. OT [place] Sprayer Goals Penitentiary Goals Time Frame: Apr 09, 2019 Eating (QC): 6 Oral Hygiene (QC): 6 Shower/Bathe Self (QC): 4 Upper Body Dressing (QC): 5 Lower Body Dressing (QC): 5 On/Off Footwear (QC): 5 Toileting Hygiene (QC): 6 Toilet/Commode Transfer (QC): 6 Additional Goals: 1-Demonstrate ADL Tasks, 2-Verbalize Understanding, 3- ImproveStrength/[place] 1=Demonstrate adherence to instructed precautions during ADL tasks. 2=Patient will verbalize/demonstrate understanding of assistive devices/modifications for ADL. 3=Patient will improve strength/tolerance for activity to enable patient to perform ADL's. OT Education/Plan Problem List/Assessment Assessment: Decreased Safety Aware, Impaired Coordination, Impaired Funct Balance, Impaired Self-Care Skills Discharge Recommendations Plan/Recommendations: Continue POC Treatment Plan/Plan of Care Patient would benefit from OT for education, treatment and training to promote independence in ADL's, mobility, safety and/or upper extremity function for ADL's. Plan of Care: ADL Retraining, Functional Mobility, UE Funct Exercise/Act Treatment Duration: Apr 09, 2019 Frequency: At least 5 of 7 days/Wk (IRF) Estimated Hrs Per Day: 1.5 hours per day Agreement: Yes Rehab Potential: Good Time/GCodes Start Time: 09:30 Stop Time: 10:30 Total Time Billed (hr/min): 60 Billed Treatment Time 1 visit-ADL 4 (60 min) ROSANNE HUNT Mar 28, 2019 10:54
--- NOTE | 2019-03-28 11:37 | NUR ---
Received orders to hold 2 B/P meds for SBP less than [address] Saldana after notifying of v/s. Rec'd parameters.
--- NOTE | 2019-03-28 11:57 | Physical Therapy Daily Note ---
PT Daily Note-Current Subjective Pt sitting in chair pre-tx with back brace in place. Pt agrees to PT. Pt reports no pain at this time. Appearance Pt sitting in chair post-tx with spouse in the room. Pt with nurse call light, room phone, tray table in reach with all needs met. Brace still donned. Mental Status Patient Orientation: Person, Place, Situation [place] back brace Transfers SCALE: Activities may be completed with or without assistive devices. 4-Ktyiascbxn-pwlmtee completes the activity by him/herself with no assistance from a helper. 5-Set-up or Clean-up Assistance-helper sets up or cleans up; patient completes activity. [place] assists only prior to or following the activity. 4-Supervision or Touching Assistance-helper provides verbal cues and/or to uching/steadying and/or contact guard assistance as patient completes activity. Assistance may be provided throughout the activity or intermittently. 3-Partial/Moderate Assistance-helper does LESS THAN HALF the effort. [place] lifts, holds or supports trunk or limbs, but provides less than half the effort. 2-Substantial/Maximal Assistance-helper does MORE THAN HALF the effort. [place] lifts or holds trunk or limbs and provides more than half the effort. 7-Qdvlmqtnw-nthuye does ALL the effort. Patient does none of the effort to complete the activity. Or, the assistance of 2 or more helpers is required for the patient to complete the activity. If activity was not attempted, code reason: 7-Patient Refused. 9-Not Applicable-not attempted and the patient did not perform the activity before the current illness, exacerbation or injury. 10-Not Attempted due to Environmental Limitations-(lack of equipment, weather restraints, etc.). 88-Not Attempted due to Medical Conditions or Safety Concerns. Sit to Stand (QC): 4 (SBA) Weight Bearing Right Lower Extremity: Right Full Weight Bearing Left Lower Extremity: Left Full Weight Bearing Gait Training Does the Patient Walk?: Yes Distance: 150' x2 Walk 10 feet (QC): 4 (SBA) Walk 50 ft with 2 Turns(QC): 4 (CGA) Walk 150 ft (QC): 4 (SBA) Gait Assistive Device: FWW Pt ambulates with NBOS. Pt lacks TKE on the L LE. Pt lacks heel first contact with L foot with occasional L toe drag. Pt demonstrates trendelenberg drop during L LE stance phase. Balance Special Test Comments Pt stands 1 min indep with slightly increased forward/backward sway. Pt stands 1 min indep on A/E foam with mod increase in forward/backward sway. Pt with no LOB this date. Exercises Seated Therapy Exercises: Ankle pumps, Long arc quads, Hip flexion Seated Reps: 15 Standing: Hip Abduction, Heel/toe raises, Marching Standing Reps: 15 NuStep Minutes: 13 NuStep Workload: 4 Treatments Pt performed LE strengthening/endurance exercises, ambulation training, transfer training, balance training, and education this date. Assessment Current Status: Fair Progress Pt demonstrates mod gait abnormalities with the L LE. Pt with noted fatigue following session and subjective report of aching in B/L hips following standing exercises & nustep. PT Short Term Goals Short Term Goals Time Frame: Mar 30, 2019 Gait Distance Comment: 150 mod (I) Gait Assistive Device: FWW PT Admitting Coordinator Goals Correction Goals PT Correction Goals Time Frame: Apr 09, 2019 Sit to Lying (QC): 6 Lying-Sitting on Side/Bed(QC): 6 Sit to Stand (QC): 6 Roll Left to Right (QC): 6 Chair/Ewa-lw-Fqyzk Xfer(QC): 6 Car Transfer (QC): 5 Does the Patient Walk: Yes Distance: 150 Walk 10 feet (QC): 6 Walk 10ft-Uneven Surface(QC): 6 Walk 50ft with 2 Turns (QC): 6 Walk 150 ft (QC): 6 Gait Level of Assist: 6 Gait Assistive Device: FWW Does the Pt use WC or Scooter?: No 1 Step (curb) (QC): 5 4 Steps (QC): 5 12 Steps (QC): 4 Stairs Level Of Assist: 5 Picking up an Object (QC): 4 PT Plan Problem List Problem List: Activity Tolerance, Functional Strength, Safety, Balance, Gait, Transfer, Bed Mobility, ROM Treatment/Plan Treatment Plan: Continue Plan of Care Treatment Plan: Bed Mobility, Education, Functional Activity Edmund, Functional Strength, Group Therapy, Gait, Safety, Therapeutic Exercise, Transfers Treatment Duration: Apr 09, 2019 Frequency: At least 5 of 7 days/Wk (IRF) Estimated Hrs Per Day: 1.5 hours per day Patient and/or Family Agrees t: Yes Safety Risks/Education Patient Education: Gait Training, Transfer Techniques, Safety Issues Teaching Recipient: Patient Teaching Methods: Demonstration, Discussion Response to Teaching: Verbalize Understanding, Return Demonstration, Reinforcement Needed Time/GCodes Time In: 1100 Time Out: 1200 Total Billed Treatment Time: 60 Total Billed Treatment 1 visit 20' FA 40' EX JELANI AMES PT Mar 28, 2019 11:57
[2019-03-28] MEDS ORDERED: ALPR0.5T7 PO (13:48)
[2019-03-28] MEDS ORDERED: AMLO5TAB9 PO (13:48)
[2019-03-28] MEDS ORDERED: METF-399 PO (13:48)
[2019-03-28] MEDS ORDERED: LOSA100T57 PO (13:48)
[2019-03-28] MEDS ORDERED: GLIP5TAB13 PO (13:48)
[2019-03-28] MEDS ORDERED: FA/M1TAB29 PO (13:48)
[2019-03-28] MEDS ORDERED: SAW1CAPS8 PO (13:48)
[2019-03-28] MEDS ORDERED: TERA2CAP4 PO (13:48)
[2019-03-28] MEDS ORDERED: NIAC1CAP PO (13:48)
[2019-03-28] MEDS ORDERED: ASPI-992 PO (13:48)
--- NOTE | 2019-03-28 13:54 | Occupational Ther Daily Note ---
OT Current Status-Daily Note Subjective Pt alert, sitting in chair. present. Pt agrees to therapy. No c/o pain. Pt stated that he was tired and wanted to go back to bed after OT session. LUIS educated pt on rehab schedule. Mental Status/Objective Patient Orientation: Person, Place, Time, Situation ADL-Treatment LUIS introduced/educated lower body dressing equipment. Pt attempted to demonstrate equipment, required verbal/physical cues to complete task. Pt able to verbalize back precautions when asked. Pt was directed to attempt to cross leg over knee to doff socks, pt completed with R LE unable to with L LE. Pt has difficulty manipulating dressing equipment and required assist to complete task. Discussed with pt and about using elastic shoe laces for tennis shoes due to pt inability at this time to tie shoe. Pt donned sock on right leg and was attempting to don the other sock same leg OT redirected. After therapy, pt sitting in chair with call light/phone in reach. present in room. All needs met in room. Therapy Code Descriptions/Definitions Functional Bowie Measure: 0=Not Assessed/NA 4=Minimal Assistance 1=Total Assistance 5=Supervision or Setup 2=Maximal Assistance 6=Modified Bowie 3=Moderate Assistance 7=Complete IndependenceSCALE: Activities may be completed with or without assistive devices. 8-Wgjcfuesgn-wyhuklo completes the activity by him/herself with no assistance from a helper. 5-Set-up or Clean-up Assistance-helper sets up or cleans up; patient completes activity. [place] assists only prior to or following the activity. 4-Supervision or Touching Assistance-helper provides verbal cues and/or touching/steadying and/or contact guard assistance as patient completes activity. Assistance may be provided throughout the activity or intermittently. 3-Partial/Moderate Assistance-helper does LESS THAN HALF the effort. [place] lifts, holds or supports trunk or limbs, but provides less than half the effort. 2-Substantial/Maximal Assistance-helper does MORE THAN HALF the effort. [place] lifts or holds trunk or limbs and provides more than half the effort. 3-Hzxedurbq-narobq does ALL the effort. Patient does none of the effort to complete the activity. Or, the assistance of 2 or more helpers is required for the patient to complete the activity. If activity was not attempted, code reason: 7-Patient Refused. 9-Not Applicable-not attempted and the patient did not perform the activity before the current illness, exacerbation or injury. 10-Not Attempted due to Environmental Limitations-(lack of equipment, weather restraints, etc.). 88-Not Attempted due to Medical Conditions or Safety Concerns. Lower Body Dressing (QC): 2 (Pt needed max assist to don and doff the sock off. Pt need cues not to bed for back precaution, Ot demonstrated to pt on how to use dressing equipment, pt had had time but Ot redicted him. Ot asked pt to try crossing his legs to take sock off but was unable, Ot demostrated on how to use dressing stick ,pt needed cues on how to use them. pt donned sock on right leg and was trying to don the other sock same leg Ot directed. Pt needed alot of cue to don shoe on.) OT Short Term Goals Short Term Goals Time Frame: Apr 02, 2019 Eating(FIM): 5 Grooming(FIM): 4 Bathing(FIM): 4 Upper Body Dressing(FIM): 4 Lower Body Dressing(FIM): 4 Toileting(FIM): 4 Transfers (B,C,W/C) (FIM): 4 Toilet/Commode Transfer(FIM): 4 Shower Transfer(FIM): 4 Additional Short Term Goals: 1-Demonstrate ADL Tasks, 2-Verbalize Understanding, 3-ImproveStrength/Edmund 1=Demonstrate adherence to instructed precautions during ADL tasks. 2=Patient will verbalize/demonstrate understanding of assistive devices/modifications for ADL. 3=Patient will improve strength/tolerance for activity to enable patient to perform ADL's. OT Long-Term Goals [employer] Goals Time Frame: Apr 09, 2019 Eating (QC): 6 Oral Hygiene (QC): 6 Shower/Bathe Self (QC): 4 Upper Body Dressing (QC): 5 Lower Body Dressing (QC): 5 On/Off Footwear (QC): 5 Toileting Hygiene (QC): 6 Toilet/Commode Transfer (QC): 6 Additional Goals: 1-Demonstrate ADL Tasks, 2-Verbalize Understanding, 3- ImproveStrength/Edmund 1=Demonstrate adherence to instructed precautions during ADL tasks. 2=Patient will verbalize/demonstrate understanding of assistive devices/modifications for ADL. 3=Patient will improve strength/tolerance for activity to enable patient to perform ADL's. OT Education/Plan Problem List/Assessment Assessment: Decreased Activ Tolerance, Decreased UE Strength, Impaired Cognition, Impaired Coordination, Impaired Self-Care Skills Discharge Recommendations Plan/Recommendations: Continue POC Treatment Plan/Plan of Care Patient would benefit from OT for education, treatment and training to promote independence in ADL's, mobility, safety and/or upper extremity function for ADL's. Plan of Care: ADL Retraining, Functional Mobility, UE Funct Exercise/Act Treatment Duration: Apr 09, 2019 Frequency: At least 5 of 7 days/Wk (IRF) Estimated Hrs Per Day: 1.5 hours per day Agreement: Yes Rehab Potential: Good Time/GCodes Start Time: 13:15 Stop Time: 13:45 Total Time Billed (hr/min): 30 Billed Treatment Time 1 visit-ADL 2 (30 min) ROSANNE HUNT Mar 28, 2019 13:54
--- NOTE | 2019-03-28 14:09 | NUR ---
Initial visit with the pt and his , Bia. They both shared their jimenez and the comfort of their family and Bia's workplace support (she is a teacher in [place]). Both shared personal jimenez in God. The pt became tearful at times when I empathetically reflected back and reframed his expressed thoughts and feelings. The pt and his verbalize feeling hopeful and grateful in the midst of "healing pain."
[2019-03-28] MEDS ORDERED: ASPI325T32 PO (14:35)
--- NOTE | 2019-03-28 14:55 | Physical Therapy Daily Note ---
PT Daily Note-Current Subjective Pt in chair pre-tx. Pt agrees to PT this afternoon. Pt's spouse is in the room pre-tx. Pt reports he is worn out this afternoon and has 7/10 pain in the back, RN is aware. Appearance Pt in bed post-tx. Pt with nurse call, room phone, tray table in reach and all needs met. Mental Status Patient Orientation: Person, Place, Situation [place] back brace Transfers SCALE: Activities may be completed with or without assistive devices. 6-Rmlnkslpcv-tukzmhs completes the activity by him/herself with no assistance from a helper. 5-Set-up or Clean-up Assistance-helper sets up or cleans up; patient completes activity. [place] assists only prior to or following the activity. 4-Supervision or Touching Assistance-helper provides verbal cues and/or touching/steadying and/or contact guard assistance as patient completes activity. Assistance may be provided throughout the activity or intermittently. 3-Partial/Moderate Assistance-helper does LESS THAN HALF the effort. [place] lifts, holds or supports trunk or limbs, but provides less than half the effort. 2-Substantial/Maximal Assistance-helper does MORE THAN HALF the effort. [place] lifts or holds trunk or limbs and provides more than half the effort. 5-Voybslfra-rhnnqy does ALL the effort. Patient does none of the effort to complete the activity. Or, the assistance of 2 or more helpers is required for the patient to complete the activity. If activity was not attempted, code reason: 7-Patient Refused. 9-Not Applicable-not attempted and the patient did not perform the activity before the current illness, exacerbation or injury. 10-Not Attempted due to Environmental Limitations-(lack of equipment, weather restraints, etc.). 88-Not Attempted due to Medical Conditions or Safety Concerns. Sit to Lying (QC): 3 (ModAx1 for help getting legs into bed during log roll.) Sit to Stand (QC): 4 (CGA) Pt demonstrates slight impulsive attitudes as he starts to stand before this PT is in place and ready. Weight Bearing Right Lower Extremity: Right Full Weight Bearing Left Lower Extremity: Left Full Weight Bearing Gait Training Does the Patient Walk?: Yes Distance: 160'x2 with seated rest break between. Walk 10 feet (QC): 4 (SBA) Walk 50 ft with 2 Turns(QC): 4 (CGA) Walk 150 ft (QC): 4 (CGA.) Gait Persons Needed: 1 Gait Assistive Device: FWW Pt continues to ambulate with NBOS and decreased L LE step length. Pt with slight LOB with turning to the R as the DESHAUN is too narrow. Pt verbalized attempting to pick the L foot up instead of letting it drag this afternoon. Pt decreases step velocity and step length with fatigue. Treatments Pt performed skilled ambulation training, transfer training, and education this date. Assessment Current Status: Good Progress Pt fatigues quickly with ambulation training this afternoon. Pt has minor LOB with turns to the R secondary to NBOS. Pt is aware and actively trying to correct L toe drag. PT Short Term Goals Short Term Goals Time Frame: Mar 30, 2019 Gait Distance Comment: 150 mod (I) Gait Assistive Device: FWW PT Correction Goals Correction Goals PT Correction Goals Time Frame: Apr 09, 2019 Sit to Lying (QC): 6 Lying-Sitting on Side/Bed(QC): 6 Sit to Stand (QC): 6 Roll Left to Right (QC): 6 Chair/Tpw-sm-Refch Xfer(QC): 6 Car Transfer (QC): 5 Does the Patient Walk: Yes Distance: 150 Walk 10 feet (QC): 6 Walk 10ft-Uneven Surface(QC): 6 Walk 50ft with 2 Turns (QC): 6 Walk 150 ft (QC): 6 Gait Level of Assist: 6 Gait Assistive Device: FWW Does the Pt use WC or Scooter?: No 1 Step (curb) (QC): 5 4 Steps (QC): 5 12 Steps (QC): 4 Stairs Level Of Assist: 5 Picking up an Object (QC): 4 PT Plan Problem List Problem List: Activity Tolerance, Functional Strength, Safety, Balance, Gait, Transfer, Bed Mobility Treatment/Plan Treatment Plan: Continue Plan of Care Treatment Plan: Bed Mobility, Education, Functional Activity Edmund, Functional Strength, Group Therapy, Gait, Safety, Therapeutic Exercise, Transfers Treatment Duration: Apr 09, 2019 Frequency: At least 5 of 7 days/Wk (IRF) Estimated Hrs Per Day: 1.5 hours per day Patient and/or Family Agrees t: Yes Safety Risks/Education Patient Education: Gait Training, Transfer Techniques, Correct Positioning, Reviewed Don/Doff Brace, Safety Issues Teaching Methods: Demonstration, Discussion Response to Teaching: Verbalize Understanding, Return Demonstration, Reinforcement Needed Time/GCodes Time In: 1424 Time Out: 1454 Total Billed Treatment Time: 30 Total Billed Treatment 1 visit 30' GT ROSANNE MATA PT Mar 28, 2019 14:55
--- NOTE | 2019-03-28 14:58 | ST Cognitive Linguistic Eval ---
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 Saldana Reason for Referral: Evaluation/Treatment Medical History Pertinent Medical History: CVA, HTN Reviewed History: Yes Social History Home: Single Level Current Living Status: Spouse Speech PLF-Current Status Prior Level of Function Patient lived at home with his where he received assistance as needed for his daily needs. Subjective Patient was pleasant and cooperative with the cognitive assessment process. Language Eval: Auditory Comprehends Simple Yes/No Ques: Functional Indent/Objects Multiple Pineda: Functional Ident/Pics in Multiple Pineda: Functional Follows 1-Step Commands: Mild Follows Complex Directions: Moderate Follows General Conversations: Mild Language Eval: Verbal Language Completes Spontaneous Greeting: Functional Produces Auto, Serial Info: Functional Imitates Simple Words/Phrases: Functional Word Finding: Mild Requests Basic Needs: Functional States Basic Personal Info: Functional Expresses Complex Ideas: Moderate Objective Cognitive Domain Attention: WNL Memory: Moderate Problem Solving: Mild Executive Functions: Mild Visuospatial Skills: Mild Composite Severity Rating: Mild Clock Drawing Severity Rating: WNL Objective Formal/Standardized Tests [facility] Mental Status ([facility]) Results 22/30 which 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 Patient was given the SLUMS for cognitive assessment. 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 Patient will receive skilled ST for improving his cognitive function with focus on safety and independence. Speech Patient Assess Expression of Ideas/Wants: Exhibits (3) Understanding Verbal Content: Usually Understands (3) Brief Interview-Mental Status: Yes Repetition of Three Words: Three (3) Temporal Orientation: Year: Correct (3) Temporal Orientation: Month: Accurate within 5 days(2) Temporal Orientation: Day: Correct (1) Recall : Wear to say "Sock": Yes,after cueing (1) Recall : Color: No, could not recall (0) Recall : Bed: No, could not recall (0) Memory/Recall Ability: Current season, That he or she is in a hsp/hsp unit Speech Short Term Goals Short Term Goals Short Term Goals 1) Patient will complete memory tasks related to his daily needs with 90% or greater with 10% cues. 2) Patient will complete problem solving tasks related to his daily needs with 90% or greater with 10% cues. 3) Patient will complete safety awareness tasks related to his daily needs with 90% or greater with 10% cues. Speech Cyber Defense Forensics Analyst Goals Senior Living Goals Patient will improve his cognitive-communication level so that he may return home safely. Speech-Plan Patient/Family Goals Patient/Family Goals: Patient plans on returning home where he lives with his post rehab. Treatment Plan Speech Therapy Treatment Plan: Continue Plan of Care Patient will receive skilled ST for improving safety and independence. Treatment Duration: Apr 08, 2019 Frequency: 5 times per week Estimated Hrs Per Day: .5 hour per day Rehab Potential: Good Barriers to Learning: Patient has cognitive deficits Pt/Family Agrees to Plan: Yes Safety Risks/Education Teaching Recipient: Patient Teaching Methods: Discussion Response to Teaching: Verbalize Understanding Education Topics Provided: Safety within his room and utilization of his call light as needed. Time Speech Therapy Time In: 10:30 Speech Therapy Time Out: 10:45 Total Billed Time: 15 Billed Treatment Time 1, SPSNDCOMP TUTU Camargo Mar 28, 2019 14:58
[2019-03-28] MEDS ORDERED: TAMS0.4C98 PO (15:01)
[2019-03-28] MEDS ORDERED: GABA-486 PO (15:01)
[2019-03-28] MEDS ORDERED: CETI1TAB86 PO (15:01)
[2019-03-28] MEDS ORDERED: EZET10TA5 PO (15:01)
[2019-03-28] MEDS ORDERED: NF-SOLIF5T PO (15:01)
--- NOTE | 2019-03-28 15:01 | NUR ---
HAD THE DISCHARGE INSTRUCTIONS FAXED OVER FROM [facility]. I DID NOT UPDATE THE MED REC WITH THE NEW ORDERS AT THIS TIME SINCE HE WAS ADMITTED OVER THE WEEKEND AND THOSE ORDERS SHOULD ALREADY HAVE BEEN ADDRESSED. NOTE THE FOLLOWING CHANGES WERE MADE AT DISCHARGE FROM [facility] THAT ARE NOT CURRENTLY REFLECTED ON THE MED REC: START TAKING: HYDROCODONE 10-325MG 1-2 Q4H PRN BACLOFEN 10MG Q8H PRN STOP TAKING: ASPIRIN 325MG DAILY I COMPARED THE MEDICATIONS THAT WERE TO BE CONTINUED WITH THE EXT MED HX WELL DISCUSSING WITH THE PATIENT. HE FILLED GABAPENTIN 100MG #60 FOR 30 DAYS HOWEVER HE STATES 2 A DAY WAS TOO MUCH FOR HIM, HE ONLY TAKES 1 AT HS [facility] REPORTED ZYRTEC 10MG DAILY HOWEVER THE EXT MED HX SHOWS HE FILLED ZYRTEC D, HE STATES HE TAKES ZYRTEC D DAILY DURING ALLERGY SEASON (IS CURRENTLY TAKING) I UPDATED THE MED REC TO THE ZYRTEC D. IN ADDITION TO WHAT IS SHOWN ON THE EXT MED HX [facility] FILLED THE FOLLOWIN03-04-19 FLOMAX 0.4MG DAILY #30 03-22-19 ZETIA 10MG HS HE STATES HE GETS HIS VESICARE 5MG FROM [facility] AT THIS TIME BUT IS GOING TO CHECK THE PRICING AT [facility]. HE ALSO HAS A BOTTLE OF EXCEDRIN OTC HE STATES HE USES IN ADDITION TO THE FOLLOWING OTC MEDS [facility]: SAW PALMETTO 450MG DAILY NIACIN 500MG HS MTV DAILY THE EXT MED HX SHOWS OMEGA 3 #360 FOR 90 DAYS 02-10-19 - HE STATES HE IS NOT TAKING THIS TO HIS KNOWLEDGE. I CALLED [facility] AND THEY VERIFIED THEY HAVE IT ON FILE BUT IT HAS NOT BEEN DISPENSED, IT IS ON HOLD. I DID NOT ADD IT TO THE MED REC.
--- NOTE | 2019-03-28 15:02 | CONSULTATION REPORT ---
DATE OF SERVICE: DATE OF CONSULTATION: 03/25/2019. ATTENDING PHYSICIAN: Annette Saldana DO. SUMMARY: A 74-year-old white man, patient of mine for many years, seen for BPH, overactive bladder had been doing well on Flomax and VESIcare 5 daily. He just recently had a back surgery and was complaining of symptoms overactive again. He is only on Flomax. I went ahead and checked his postvoid residual was only 1 mL, so I restarted him on Detrol-LA 4 mg daily, and manage accordingly. IMPRESSION: Benign prostatic hyperplasia and overactive bladder. PLAN: Continue present management. Job ID: [id number] DocumentID: [id number] Dictated Date: 03/28/2019 12:48:39 Vegetable Farm Manager Date: 03/28/2019 15:01:18 Dictated By: SHIRLEY HOBBS MD
--- NOTE | 2019-03-28 16:51 | NUR ---
RD ASSESSMENT PMHx: HTN; HLD; BPH; dementia; chronic constipation; DM PT INTERACTION: Pt was awake and pleasant during rehab nutrition assessment. Pt states current appetite is poor, and has been this way since his surgery. Pt states following a regular diet at home though he avoids most sweets, and he has no current issues with chewing/swallowing food. Pt states no recent issues with n/v at this time. Pt states some issues with constipation since the surgery. Note no BM has been recorded, and pt currently on bowel regimen of miralax, senna, and colace. Pt states some recent wt loss, but according to pt's , it has been very little wt loss. Note unable to determine recent wt hx, per chart review. ABNORMAL NUTRITION-RELATED LAB VALUES: glu 177 (H); bili 1.1 (H); Pro 6.3 (L) Est. kcal needs: 9166-3287 kcal (25-30 kcal/kg) Est. Pro needs: 85-99 g Pro (1.2-1.4 g Pro/kg) PES STATEMENT: Inadequate oral intake (NI-2.1) related to loss of appetite as evidenced by 50% of meals consumed x2d INTERVENTION: Continue with current diet order of Regular diet. Add Ensure HP (vanilla) to meals TID. Provides 160 kcal and 16 g Pro per serving. Encouraged pt to eat when able. MONITOR/EVALUATE: PO Intake; Plan of Care; Hydration Status; Weight Status; Lab Values Jarad Chong, MS, RD, LD Ext. [phone]
[2019-03-28] MEDS: TAMSULOSIN 0.4 MG (FLOMAX) CAP PO SCH (18:16)
[2019-03-28 18:45] VITALS: BP 95/64
--- NOTE | 2019-03-28 20:20 | NUR ---
LACTULOSE PRN GIVEN FOR CONSTIPATION. PATIENT DENIES ANY FURTHER NEEDS OR CO AT THIS TIME.
[2019-03-28] MEDS: eZETimibe 10 MG (ZETIA) TABLET PO SCH (20:22)
[2019-03-28] MEDS: GABAPENTIN 100 MG (NEURONTIN) CAP PO SCH (20:23)
[2019-03-28] MEDS: TOLTERODINE LA 4 MG (DETROL) CAP PO SCH (20:23)
[2019-03-28] MEDS: NIACIN 500 MG TABLET PO SCH (20:23)
[2019-03-28] MEDS: TERAZOSIN 2 MG (HYTRIN) CAP PO SCH (20:23)
[2019-03-29 06:00] VITALS: BP 121/75
[2019-03-29] MEDS: TROSPIUM 20 MG (SANCTURA) TAB PO SCH ×2 (07:07→16:05)
[2019-03-29] MEDS: metFORMIN 500 MG (GLUCOPHAGE) TAB PO SCH ×2 (07:07→16:05)
--- NOTE | 2019-03-29 08:25 | Individualized Plan of Care ---
Individualized Plan of Care Rehab Nursing IPOC Order Admission Date Mar 26, 2019 at 10:00 Current Orders Orders Admission Order(Inpt,Obs,Sdc) (03/26/19 08:41) Vital Signs: Per Unit Policy ( 08,16,00 (03/26/19 08:41) Site Interpreter-Inpt Rehab Con (03/26/19 08:41) Rehab Nursing Orders-Ipoc (03/26/19 08:41) Physical Therapy Rehab Orders (03/26/19 08:41) Occupational Therapy Rehab Ord (03/26/19 08:41) Speech Therapy Rehab Orders (03/26/19 08:41) General/Regular (03/26/19 Lunch) Intake & Output 06,14,22 (03/26/19 08:41) Precautions (Aru) (03/26/19 08:41) Rehab-Intensity Of Therapy (03/26/19 08:41) Initiate Admission Nursing Pro .admission (03/26/19 08:41) Initiate Admission Nursing Pro .admission (03/26/19 08:41) Acetaminophen Tablet (Tylenol Tablet) (03/26/19 08:45) Calcium Carbonate Chew Tablet (Antacid C (03/26/19 08:45) Alprazolam Tablet (Xanax Tablet) (03/26/19 08:45) Diphenhydramine Tablet (Benadryl Tablet) (03/26/19 08:45) Docusate Sodium Capsule (Colace Capsule) (03/26/19 08:45) Lactulose Oral Solution (Enulose Oral So (03/26/19 08:45) Loperamide Tablet (Imodium Tablet) (03/26/19 08:45) Melatonin Tablet (Melatonin Tablet) (03/26/19 08:45) Polyethylene Glycol Powder Pkt (Miralax (03/26/19 09:00) Senna S Tablet (Senokot S Tablet) (03/26/19 09:00) Ondansetron Oral Dissolve Tab (Zofran (03/26/19 08:45) Patient Visit (03/26/19 ) Pt Eval Moderate Complexity (03/26/19 ) Gait Training, Ea 15 Min (03/26/19 ) Cbc With Automated Diff (03/27/19 06:00) Comprehensive Metabolic Panel (03/27/19 06:00) Consult Urology (03/26/19 12:43) Niacin Tablet (Niacin Tablet) (03/26/19 21:00) Metformin Tablet (Glucophage Tablet) (03/26/19 17:00) Therapeutic Multivitamin Tab (Vitamins, (03/26/19 12:45) Glipizide Tablet (Glucotrol Tablet) (03/27/19 09:00) Losartan Tablet (Cozaar Tablet) (03/27/19 09:00) Terazosin Capsule (Hytrin Capsule) (03/26/19 21:00) Tamsulosin Capsule (Flomax Capsule) (03/26/19 18:00) Ezetimibe Tablet (Zetia Tablet) (03/26/19 21:00) Amlodipine Tablet (Norvasc Tablet) (03/27/19 09:00) Gabapentin Capsule/Tablet (Neurontin Cap (03/26/19 21:00) Hydrocodone/Apap 10/325 Tablet (Lortab 1 (03/26/19 12:45) Baclofen Tablet (Lioresal Tablet) (03/26/19 12:45) Trospium Tablet (Sanctura Tablet) (03/26/19 16:00) Loratadine Tablet (Claritin Tablet) (03/27/19 09:00) Bladder Scan ONCE (03/26/19 14:02) Tolterodine La Capsule (Detrol La Capsul (03/26/19 21:00) Influenza Quad (5+Yoa) (Afluria (03/26/19 14:45) Accucheck Bid DBID (03/27/19 17:05) Patient Visit (03/28/19 ) Speech Sound Lang Comp (03/28/19 ) Ensure High Protein (03/28/19 Dinner) Patient Visit (03/28/19 ) Exercise Therap, Ea 15 Min (03/28/19 ) Functional Activities, Ea 15 (03/28/19 ) Consult Orthopedic Surgery (03/28/19 19:40) Rehab Nursing Orders: Ongoing Assess. of Cognitive Status, Ongoing Assess. of Function Status, Bladder Management, Bladder Scan, Bladder Training, Bowel Management, Bowel Training, Disease Management & Educaiton, DVT Prophylaxis, Fall Prevention, Fluid/Electrolyte/Nutrition Mgmt, Infection Prevention, Medication Management & Education, Management of Risks & Complications, Management of Skin Intergrity, Nutrition Management, Pain Management, Patient/Family Support, Safety Management Intensity of Therapy to be met Patient to be seen: Min.3h per day/5 of 7d PT IPOC Problem List: Activity Tolerance, Functional Strength, Safety, Balance, Gait, Transfer, Bed Mobility Treatment Plan: Continue Plan of Care Bed Mobility, Education, Functional Activity Edmund, Functional Strength, Group Therapy, Gait, Safety, Therapeutic Exercise, Transfers Treatment Duration: Apr 09, 2019 Frequency: At least 5 of 7 days/Wk (IRF) Estimated Hrs Per Day: 1.5 hours per day OT IPOC Problems: Decreased Activ Tolerance, Decreased UE Strength, Impaired Cognition, Impaired Coordination, Impaired Self-Care Skills OT Treatment, Training and Edu: Yes Plan of Care: ADL Retraining, Functional Mobility, UE Funct Exercise/Act Treatment Duration: Apr 09, 2019 Frequency: At least 5 of 7 days/Wk (IRF) Estimated Hrs Per Day: 1.[address] IPOC Speech Therapy Treatment Plan: Continue Plan of Care Treatment Duration: Apr 08, 2019 Frequency: 5 times per week Estimated Hrs Per Day: .5 hour per day Site Interpreter/Case Mgmt Site Interpreter/Case Managemen: Discharge Planning Dietitian/Consulting Hr Professional Dietitian/Consulting Hr Professional to monitor nutritional status and make changes and/or recommendations as needed and work with speech pathology on dietary upgrades as the occur. Physician IPOC Medical Issues being managed closely and that require the 24 hour availability of a physician: Patient with dementia and confusion especially at night with urinary retention and bowel disruption from lumbar spine surgery at high risk for decompensation Medical Issues: Bowel/Bladder Function, DVT Prophylaxis, Falls Precautions, Fluid/Electrolyte/Nutrition Balance, Infection Protection Brief Synthesis of Preadmission Screen, Post-Admission Evaluation, and Therapy Evaluations: Physical therapy will work on ambulation with assistive device and fall risk prevention Occupational therapy will focus on regaining independent ADL function Speech therapy work on cognition Medical Prognosis: Good Anticipated Length of Stay: 7 days LENNY CAVANAUGH DO Mar 29, 2019 08:25
--- NOTE | 2019-03-29 08:26 | PM&R Progress Note ---
Subjective HPI/CC On Admission Date Seen by Provider: Mar 29, 2019 Time Seen by Provider: 08:30 Chief complaint: Debility following lumbar spine surgery with myelopathy History of present illness: This is a 74-year-old white male clinic patient of Dr. Dougherty who has a past medical history of hypertension, hyperlipidemia, BPH managed by urology Dr. Woods and transition ischemic attacks with subsequent presumed vascular dementia managed by neurology at [facility] who presents following an uncomplicated lumbar spine surgery but having a slow recovery in need of intensive rehabilitation prior to going home with his . He is having quite a bit of poor recall did not recall having surgery but he does remember talking to me for 2 days over at [place] at [facility] where I was consulted. He was having urinary retention shortly after surgery so I did go ahead and recheck out to his urologist who gave the nurse orders for post void residual bladder scanning. He has not had a bowel movement since before surgery. His is very aware of the fact that dementia will preclude a fast recovery but he is in the midst of evaluation from PT and OT in order to regain as much function as quickly as possible. He denies any current pain. I do review his home medication and my consult report. Subjective/Events-last exam No major concerns. Dementia is becoming even more noticeable with conversation. No falls. Working diligently with therapy. Does use pain medication but sparingly. Bowels are moving. No urinary incontinence. Checked meds and labs Reviewed therapy notes Conferred with bricklayer tender of Systems General: Fatigue Musculoskeletal: back pain Neurological: Confusion Objective Exam Vital Signs Vital Signs Date Time Temp Pulse Resp B/P (MAP) Pulse Ox O2 Delivery O2 Flow Rate FiO2 03/29/19 17:37 37.3 114 18 125/73 (90) 96 Room Air Capillary Refill : Less Than 3 Seconds General Appearance: No Apparent Distress, WD/WN, Chronically ill, Thin, Other (frail) HEENT: PERRL/EOMI, Normal ENT Inspection, Pharynx Normal, Moist Mucous Membranes Neck: Full Range of Motion, Normal Inspection, Non Tender, Supple Respiratory: Chest Non Tender, Lungs Clear, Normal Breath Sounds, No Accessory Muscle Use, No Respiratory Distress Cardiovascular: Regular Rate, Rhythm, No Edema, No Gallop, No JVD, No Murmur Gastrointestinal: Normal Bowel Sounds, No Organomegaly, No Pulsatile Mass, Non Tender, Soft Back: Decreased Range of Motion, Muscle Spasm, Vertebral Tenderness Extremity: Normal Capillary Refill, Normal Inspection, Normal Range of Motion, Non Tender, No Calf Tenderness, No Pedal Edema Neurologic/Psychiatric: Alert, No Motor/Sensory Deficits, government program manager II-XII Norm as Tested, Depressed Affect, Other (poor memory recall) Skin: Normal Color, Warm/Dry Lymphatic: No Adenopathy Results/Procedures Lab Patient resulted labs reviewed. FIM Transfers Therapy Code Descriptions/Definitions Functional [place] Measure: 0=Not Assessed/NA 4=Minimal Assistance 1=Total Assistance 5=Supervision or Setup 2=Maximal Assistance 6=Modified [place] 3=Moderate Assistance 7=Complete IndependenceSCALE: Activities may be completed with or without assistive devices. 1-Netpsxqlky-umjuryt completes the activity by him/herself with no assistance from a helper. 5-Set-up or Clean-up Assistance-helper sets up or cleans up; patient completes activity. [place] assists only prior to or following the activity. 4-Supervision or Touching Assistance-helper provides verbal cues and/or touching/steadying and/or contact guard assistance as patient completes activity. Assistance may be provided throughout the activity or intermittently. 3-Partial/Moderate Assistance-helper does LESS THAN HALF the effort. [place] lifts, holds or supports trunk or limbs, but provides less than half the effort. 2-Substantial/Maximal Assistance-helper does MORE THAN HALF the effort. [place] lifts or holds trunk or limbs and provides more than half the effort. 1-Oequvoovy-qapiwn does ALL the effort. Patient does none of the effort to complete the activity. Or, the assistance of 2 or more helpers is required for the patient to complete the activity. If activity was not attempted, code reason: 7-Patient Refused. 9-Not Applicable-not attempted and the patient did not perform the activity before the current illness, exacerbation or injury. 10-Not Attempted due to Environmental Limitations-(lack of equipment, weather restraints, etc.). 88-Not Attempted due to Medical Conditions or Safety Concerns. Roll Left to Right (QC): 4 Sit to Lying (QC): 3 (ModAx1 for help getting legs into bed during log roll.) Sit to Stand (QC): 4 (CGA) Chair/Lxm-sx-Rtptp Xfer(QC): 4 Car Transfer (QC): 3 Gait Training Does the Patient Walk?: Yes Distance (FIM): 3=150 ft Distance: 160'x2 with seated rest break between. Walk 10 feet (QC): 4 (SBA) Walk 50 ft with 2 Turns(QC): 4 (CGA) Walk 150 ft (QC): 4 (CGA.) Walking 10ft/uneven surface-QC: 4 Gait Persons Needed: 1 Gait Assistive Device: FWW Wheelchair Training Does the Pt Use a Wheelchair?: No Stair Training #of Steps: 4 1 Step (curb) (QC): 4 4 Steps (QC): 4 12 Steps (QC): 88 Balance Picking up an Object (QC): 88 ADL-Treatment Eating (QC): 6 (Pt demonstrates ability to open containers/packages by self and use regular utensils to eat.) Oral Hygiene (QC): 6 Bathing Location: L Arm, R Arm, L Upper Leg, R Upper Leg, Chest, Abdomen, Buttocks, Perineal Area Shower/Bathe Self (QC): 3 Upper Body Dressing (QC): 5 Lower Body Dressing (QC): 2 (Pt needed max assist to don and doff the sock off. Pt need cues not to bed for back precaution, Ot demonstrated to pt on how to use dressing equipment, pt had had time but Ot redicted him. Ot asked pt to try crossing his legs to take sock off but was unable, Ot demostrated on how to use dressing stick ,pt needed cues on how to use them. pt donned sock on right leg and was trying to don the other sock same leg Ot directed. Pt needed alot of cue to don shoe on.) On/Off Footwear (QC): 1 Toileting Hygiene (QC): 4 Toilet Transfer (QC): 4 Assessment/Plan Assessment and Plan Assess & Plan/Chief Complaint Assessment: Status post uncomplicated lumbar spine surgery with myelopathy with slow recovery Dementia TIA history Smoker Hypertension Hyperlipidemia Chronic constipation BPH New urinary incontinence Diabetes mellitus Plan: Appreciate urology consultation Inpatient rehabilitation protocol Pain control Monitor blood sugar Check labs prn Bowel regimen to maintain (1) Lumbar myelopathy (2) Dementia (3) Hx TIA/stroke w/o resid (4) Smoker (5) Hypertension (6) Hyperlipidemia (7) Diabetes mellitus (8) BPH (benign prostatic hyperplasia) (9) Urinary incontinence (10) Constipation (11) Frailty LENNY CAVANAUGH DO Mar 29, 2019 08:26
[2019-03-29] MEDS: LORATADINE (CLARITIN) 10 MG TAB PO SCH (08:51)
[2019-03-29] MEDS: glipiZIDE 5 MG (GLUCOTROL) TAB PO SCH (08:51)
[2019-03-29] MEDS: SENNA W/DOCUSATE (SENOKOT S) TABLET PO SCH ×2 (08:52→20:03)
[2019-03-29] MEDS: POLYETHYLENE GLYCOL 17 GM (MIRALAX) PACK PO SCH ×2 (08:52→20:05)
[2019-03-29] MEDS: amLODIPine 5 MG (NORVASC) TAB PO SCH (08:52)
[2019-03-29] MEDS: LOSARTAN 100 MG (COZAAR) TABLET PO SCH (08:53)
[2019-03-29 08:56] VITALS: BP 102/70
[2019-03-29] MEDS: HYDROcodone/APAP 10 MG/325 MG (LORTAB) TAB PO PRN ×3 (08:56→17:35)
--- NOTE | 2019-03-29 08:58 | Physical Therapy Daily Note ---
PT Daily Note-Current Subjective Pt in chair pre-tx. Pt agrees to PT today with pain 4/10 in the low back. Appearance Pt in chair post-tx with chair alarm set and [place] back brace in place. Pt reports increase in pain to 6/10 while he is up exercising and his hips are tired after this session. Pt has nurse call light, room phone, tray table in reach and all needs met. Mental Status Patient Orientation: Person, Situation [place] back brace. Transfers SCALE: Activities may be completed with or without assistive devices. 2-Ymykcjlnck-cltsdot completes the activity by him/herself with no assistance from a helper. 5-Set-up or Clean-up Assistance-helper sets up or cleans up; patient completes activity. [place] assists only prior to or following the activity. 4-Supervision or Touching Assistance-helper provides verbal cues and/or touching/steadying and/or contact guard assistance as patient completes activity. Assistance may be provided throughout the activity or intermittently. 3-Partial/Moderate Assistance-helper does LESS THAN HALF the effort. [place] lifts, holds or supports trunk or limbs, but provides less than half the effort. 2-Substantial/Maximal Assistance-helper does MORE THAN HALF the effort. [place] lifts or holds trunk or limbs and provides more than half the effort. 5-Ehoabphgs-yykvrw does ALL the effort. Patient does none of the effort to complete the activity. Or, the assistance of 2 or more helpers is required for the patient to complete the activity. If activity was not attempted, code reason: 7-Patient Refused. 9-Not Applicable-not attempted and the patient did not perform the activity before the current illness, exacerbation or injury. 10-Not Attempted due to Environmental Limitations-(lack of equipment, weather restraints, etc.). 88-Not Attempted due to Medical Conditions or Safety Concerns. Sit to Stand (QC): 4 (SBA) Weight Bearing Right Lower Extremity: Right Full Weight Bearing Left Lower Extremity: Left Full Weight Bearing Gait Training Distance: 100' x2 Walk 10 feet (QC): 4 (SBA) Walk 50 ft with 2 Turns(QC): 4 (CGA for turns) Gait Assistive Device: FWW Pt continues to ambulate with NBOS with increased L toe drag from last session. Stair Training Stair Training: Handrails/: 2 handrails #of Steps: 4 (x2) 4 Steps (QC): 4 (CGA. needs cues to lead up with strong leg and decend with weaker leg first.) Stairs: Pattern: Step to Balance Special Test Comments Pt performed 10 weight shifts to each side on A/E foam this date. Pt demonstrated mod LOB posteriorly when shifting to the R requiring modAx1 to regain balance. Exercises Standing: Hip Abduction, Heel/toe raises, Marching, Side steps (down and back in // bars x3) Standing Reps: 15 NuStep Minutes: 10 NuStep Workload: 4 Treatments Pt performed LE exercise, Balance training, gait training, step training, and education. Assessment Current Status: Fair Progress Pt continues to show impaired balance and is a fall risk. Pt with noted fatigue following session. PT Short Term Goals Short Term Goals Time Frame: Mar 30, 2019 Gait Distance Comment: 150 mod (I) Gait Assistive Device: FWW PT Dynamite Packing Machine Operator Goals Custodial Goals PT Custodial Goals Time Frame: Apr 09, 2019 Sit to Lying (QC): 6 Lying-Sitting on Side/Bed(QC): 6 Sit to Stand (QC): 6 Roll Left to Right (QC): 6 Chair/Lih-vu-Lvqum Xfer(QC): 6 Car Transfer (QC): 5 Does the Patient Walk: Yes Distance: 150 Walk 10 feet (QC): 6 Walk 10ft-Uneven Surface(QC): 6 Walk 50ft with 2 Turns (QC): 6 Walk 150 ft (QC): 6 Gait Level of Assist: 6 Gait Assistive Device: FWW Does the Pt use WC or Scooter?: No 1 Step (curb) (QC): 5 4 Steps (QC): 5 12 Steps (QC): 4 Stairs Level Of Assist: 5 Picking up an Object (QC): 4 PT Plan Problem List Problem List: Activity Tolerance, Functional Strength, Safety, Balance, Gait, Transfer, Bed Mobility Treatment/Plan Treatment Plan: Continue Plan of Care Treatment Plan: Bed Mobility, Education, Functional Activity Edmund, Functional Strength, Group Therapy, Gait, Safety, Therapeutic Exercise, Transfers Treatment Duration: Apr 09, 2019 Frequency: At least 5 of 7 days/Wk (IRF) Estimated Hrs Per Day: 1.5 hours per day Patient and/or Family Agrees t: Yes Safety Risks/Education Patient Education: Gait Training, Transfer Techniques, Steps, Reviewed Precautions, Correct Positioning, Safety Issues Teaching Recipient: Patient Teaching Methods: Demonstration, Discussion Response to Teaching: Return Demonstration, Reinforcement Needed Time/GCodes Time In: 800 Time Out: 900 Total Billed Treatment Time: 60 Total Billed Treatment 1 visit 20' EX 15' GT 25' FA JELANI AMES PT Mar 29, 2019 08:57
--- NOTE | 2019-03-29 09:51 | Progress Note - Urology ---
Progress Note-Urology Progress Notes/Assess & Plan Progress/Assessment & Plan CONTINUES WELL AKINS. KEEP SAME Final Diagnosis BPH AND OAB SHIRLEY HOBBS MD Mar 29, 2019 09:51
--- NOTE | 2019-03-29 14:50 | Occupational Ther Daily Note ---
OT Current Status-Daily Note Subjective No pain reported. Appearance Pt. sitting up in chair. Agrees to OT treatment. Mental Status/Objective Patient Orientation: Person ADL-Treatment Therapy Code Descriptions/Definitions Functional [place] Measure: 0=Not Assessed/NA 4=Minimal Assistance 1=Total Assistance 5=Supervision or Setup 2=Maximal Assistance 6=Modified [place] 3=Moderate Assistance 7=Complete IndependenceSCALE: Activities may be completed with or without assistive devices. 4-Ueqbudhzgu-bpgmqav completes the activity by him/herself with no assistance from a helper. 5-Set-up or Clean-up Assistance-helper sets up or cleans up; patient completes activity. [place] assists only prior to or following the activity. 4-Supervision or Touching Assistance-helper provides verbal cues and/or touching/steadying and/or contact guard assistance as patient completes activity. Assistance may be provided throughout the activity or intermittently. 3-Partial/Moderate Assistance-helper does LESS THAN HALF the effort. [place] lifts, holds or supports trunk or limbs, but provides less than half the effort. 2-Substantial/Maximal Assistance-helper does MORE THAN HALF the effort. [place] lifts or holds trunk or limbs and provides more than half the effort. 3-Kybduhdps-rnpkgf does ALL the effort. Patient does none of the effort to complete the activity. Or, the assistance of 2 or more helpers is required for the patient to complete the activity. If activity was not attempted, code reason: 7-Patient Refused. 9-Not Applicable-not attempted and the patient did not perform the activity before the current illness, exacerbation or injury. 10-Not Attempted due to Environmental Limitations-(lack of equipment, weather restraints, etc.). 88-Not Attempted due to Medical Conditions or Safety Concerns. Oral Hygiene (QC): 5 (Pt. able to brush teeth seated at sink with increased time needed.) Shower/Bathe Self (QC): 4 (CGA in stance and multiple cues. Pt. seemed to forget at times that he had already completed a task, and would start it over.) Upper Body Dressing (QC): 4 (SBA to don shirt. SBA to doff brace. Minimal assist to don brace.) Lower Body Dressing (QC): 2 (Mod assist to don brief with AE. Min assist to don pants with AE. Max assist and cues to don socks with AE. Dependent to don shoes.) Other Treatment Pt. agreed to shower/dress this date. Overall, pt. requires increased time and cues to sequence and continue each task. Pt. will complete tasks several times with cues that he has already performed it. Increased time needed and SBA/CGA for safety in stance. Pt. uses AE for bathing and dressing. Ambulated to chair in room with call light and chair alarm in place. All needs met. Education OT Patient Education: Correct positioning, Modified ADL techniques, Progress toward Goal/Update tx plan, Purpose of tx/functional activities, Reviewed precautions, Rehab process, Transfer techniques, Use of adapted equipment Teaching Recipient: Patient Teaching Methods: Demonstration, Discussion Response to Teaching: Verbalize Understanding, Return Demonstration OT Short Term Goals Short Term Goals Time Frame: Apr 02, 2019 Eating(FIM): 5 Grooming(FIM): 4 Bathing(FIM): 4 Upper Body Dressing(FIM): 4 Lower Body Dressing(FIM): 4 Toileting(FIM): 4 Transfers (B,C,W/C) (FIM): 4 Toilet/Commode Transfer(FIM): 4 Shower Transfer(FIM): 4 Additional Short Term Goals: 1-Demonstrate ADL Tasks, 2-Verbalize Understanding, 3-ImproveStrength/Edmund 1=Demonstrate adherence to instructed precautions during ADL tasks. 2=Patient will verbalize/demonstrate understanding of assistive devices/modifications for ADL. 3=Patient will improve strength/tolerance for activity to enable patient to perform ADL's. OT Halfway Goals Physical Chemistry Professor Goals Time Frame: Apr 09, 2019 Eating (QC): 6 Oral Hygiene (QC): 6 Shower/Bathe Self (QC): 4 Upper Body Dressing (QC): 5 Lower Body Dressing (QC): 5 On/Off Footwear (QC): 5 Toileting Hygiene (QC): 6 Toilet/Commode Transfer (QC): 6 Additional Goals: 1-Demonstrate ADL Tasks, 2-Verbalize Understanding, 3- ImproveStrength/Edmund 1=Demonstrate adherence to instructed precautions during ADL tasks. 2=Patient will verbalize/demonstrate understanding of assistive devices/modifications for ADL. 3=Patient will improve strength/tolerance for activity to enable patient to perform ADL's. OT Education/Plan Problem List/Assessment Assessment: Decreased Activ Tolerance, Decreased Safety Aware, Dependent Transfers, Impaired Cognition, Impaired Funct Balance, Impaired I ADL's, Im paired Self-Care Skills Discharge Recommendations Plan/Recommendations: Continue POC Therapy Discharge Recommendati: Post Acute OT Equpiment Recommendations-D/C: Hip Kit Treatment Plan/Plan of Care Treatment,Training & Education: Yes Patient would benefit from OT for education, treatment and training to promote independence in ADL's, mobility, safety and/or upper extremity function for ADL's. Plan of Care: ADL Retraining, Functional Mobility, UE Funct Exercise/Act Treatment Duration: Apr 09, 2019 Frequency: At least 5 of 7 days/Wk (IRF) Estimated Hrs Per Day: 1.5 hours per day Agreement: Yes Rehab Potential: Good Time/GCodes Start Time: 09:30 Stop Time: 10:30 Total Time Billed (hr/min): 60 Billed Treatment Time 1, ADL x 4 ZACHERY SULLIVAN OT Mar 29, 2019 14:50
--- NOTE | 2019-03-29 14:58 | Speech Therapy Daily Note ---
Speech Daily Progress Note Subjective Date Seen by Provider: Mar 29, 2019 Time Seen by Provider: 00:30 Patient was resting in his bed after finishing PT. Objective Patient completed memory tasks related to his daily needs at 80% with 20% cues and/or repetitions. Assessment Assessment Current Status: Good Progress Treatment Plan Continue Plan of Care Speech Short Term Goals Short Term Goals Short Term Goals 1) Patient will complete memory tasks related to his daily needs with 90% or greater with 10% cues. 2) Patient will complete problem solving tasks related to his daily needs with 90% or greater with 10% cues. 3) Patient will complete safety awareness tasks related to his daily needs with 90% or greater with 10% cues. Speech Chip Machine Operator Goals [facility] Goals Patient will improve his cognitive-communication level so that he may return home safely. Speech-Plan Patient/Family Goals Patient/Family Goals: Patient plans on returning to his home where he lives with his . Treatment Plan Speech Therapy Treatment Plan: Continue Plan of Care Patient is anticipated to make good progress with skilled therapy. Treatment Duration: Apr 08, 2019 Frequency: 5 times per week Estimated Hrs Per Day: .5 hour per day Rehab Potential: Good Barriers to Learning: Patient has cognitive deficits. Pt/Family Agrees to Plan: Yes Safety Risks/Education Teaching Recipient: Patient, Significant Other Teaching Methods: Demonstration, Discussion Response to Teaching: Verbalize Understanding, Return Demonstration Education Topics Provided: Continued safety within his room. Time Speech Therapy Time In: 14:30 Speech Therapy Time Out: 15:00 Total Billed Time: 30 Billed Treatment Time [address] Mar 29, 2019 14:58
--- NOTE | 2019-03-29 15:05 | Physical Therapy Daily Note ---
PT Daily Note-Current Subjective Pt in chair with chair alarm set pre-tx. Pt agrees to PT this afternoon. Pt's present for duration of tx. Appearance Pt in bed post-tx with bed alarm set. Pt with nurse call, room phone, tray table in reach and all needs met at this time. Pt's present at this time. Mental Status Patient Orientation: Person, Place, Time, Situation Transfers SCALE: Activities may be completed with or without assistive devices. 3-Setbggzsce-qzmtrae completes the activity by him/herself with no assistance from a helper. 5-Set-up or Clean-up Assistance-helper sets up or cleans up; patient completes activity. [place] assists only prior to or following the activity. 4-Supervision or Touching Assistance-helper provides verbal cues and/or to uching/steadying and/or contact guard assistance as patient completes activity. Assistance may be provided throughout the activity or intermittently. 3-Partial/Moderate Assistance-helper does LESS THAN HALF the effort. [place] lifts, holds or supports trunk or limbs, but provides less than half the effort. 2-Substantial/Maximal Assistance-helper does MORE THAN HALF the effort. [place] lifts or holds trunk or limbs and provides more than half the effort. 2-Vdxedpnej-tvjcnz does ALL the effort. Patient does none of the effort to complete the activity. Or, the assistance of 2 or more helpers is required for the patient to complete the activity. If activity was not attempted, code reason: 7-Patient Refused. 9-Not Applicable-not attempted and the patient did not perform the activity before the current illness, exacerbation or injury. 10-Not Attempted due to Environmental Limitations-(lack of equipment, weather restraints, etc.). 88-Not Attempted due to Medical Conditions or Safety Concerns. Sit to Lying (QC): 3 (Alisson for log roll to get LE into bed) Sit to Stand (QC): 4 (CGA) Chair/Iwe-jo-Ulxba Xfer(QC): 4 Weight Bearing Right Lower Extremity: Right Full Weight Bearing Left Lower Extremity: Left Full Weight Bearing Gait Training Does the Patient Walk?: Yes Distance: 540' with no breaks Walk 10 feet (QC): 4 (SBA) Walk 50 ft with 2 Turns(QC): 4 (SBA) Walk 150 ft (QC): 4 (SBA) Gait Assistive Device: FWW Pt uses self selected short choppy step through gait pattern with a L LE toe drag but will correct and take larger steps while lifting the L toes when cued but reverts back to self selected pattern quickly. Treatments Pt performed skilled ambulation training, functional bed mobility, and education this date. Assessment Current Status: Good Progress Pt santos a much longer gait distance this date from previous session and required no sit breaks during today's walk. Pt reports no increase in pain during this walk. Pt is able to correct gait pattern which he has not done up to this point, even though he reverts back to a self selected pattern quickly. Pt with less fatigue this date than last session. PT Short Term Goals Short Term Goals Time Frame: Mar 30, 2019 Gait Distance Comment: 150 mod (I) Gait Assistive Device: FWW PT Mcfp Goals Armature Winder Repair Helper Goals PT Armature Winder Repair Helper Goals Time Frame: Apr 09, 2019 Sit to Lying (QC): 6 Lying-Sitting on Side/Bed(QC): 6 Sit to Stand (QC): 6 Roll Left to Right (QC): 6 Chair/Jgq-ca-Fvhee Xfer(QC): 6 Car Transfer (QC): 5 Does the Patient Walk: Yes Distance: 150 Walk 10 feet (QC): 6 Walk 10ft-Uneven Surface(QC): 6 Walk 50ft with 2 Turns (QC): 6 Walk 150 ft (QC): 6 Gait Level of Assist: 6 Gait Assistive Device: FWW Does the Pt use WC or Scooter?: No 1 Step (curb) (QC): 5 4 Steps (QC): 5 12 Steps (QC): 4 Stairs Level Of Assist: 5 Picking up an Object (QC): 4 PT Plan Problem List Problem List: Activity Tolerance, Functional Strength, Safety, Balance, Gait, Transfer, Bed Mobility Treatment/Plan Treatment Plan: Continue Plan of Care Treatment Plan: Bed Mobility, Education, Functional Activity Edmund, Functional Strength, Group Therapy, Gait, Safety, Therapeutic Exercise, Transfers Treatment Duration: Apr 09, 2019 Frequency: At least 5 of 7 days/Wk (IRF) Estimated Hrs Per Day: 1.5 hours per day Patient and/or Family Agrees t: Yes Safety Risks/Education Patient Education: Gait Training, Transfer Techniques, Correct Positioning, Safety Issues Teaching Recipient: Patient Teaching Methods: Demonstration, Discussion Response to Teaching: Verbalize Understanding, Return Demonstration, Reinforcement Needed Time/GCodes Time In: 1400 Time Out: 1424 Total Billed Treatment Time: 24 Total Billed Treatment 1 visit GT 24' JELANI AMES PT Mar 29, 2019 15:05
--- NOTE | 2019-03-29 15:06 | Occupational Ther Daily Note ---
OT Current Status-Daily Note Subjective Pt. seated in chair in room, present. reported that she brought the shoe that pt had asked for. Appearance Pt up and alert. Pt agrees to therapy treatment. Mental Status/Objective Patient Orientation: Person ADL-Treatment Therapy Code Descriptions/Definitions Functional [place] Measure: 0=Not Assessed/NA 4=Minimal Assistance 1=Total Assistance 5=Supervision or Setup 2=Maximal Assistance 6=Modified [place] 3=Moderate Assistance 7=Complete IndependenceSCALE: Activities may be completed with or without assistive devices. 7-Yegudbnpyi-gjgyrpq completes the activity by him/herself with no assistance from a helper. 5-Set-up or Clean-up Assistance-helper sets up or cleans up; patient completes activity. [place] assists only prior to or following the activity. 4-Supervision or Touching Assistance-helper provides verbal cues and/or touching/steadying and/or contact guard assistance as patient completes activity. Assistance may be provided throughout the activity or intermittently. 3-Partial/Moderate Assistance-helper does LESS THAN HALF the effort. [place] lifts, holds or supports trunk or limbs, but provides less than half the effort. 2-Substantial/Maximal Assistance-helper does MORE THAN HALF the effort. [place] lifts or holds trunk or limbs and provides more than half the effort. 8-Rvvpsvzih-lsjber does ALL the effort. Patient does none of the effort to complete the activity. Or, the assistance of 2 or more helpers is required for the patient to complete the activity. If activity was not attempted, code reason: 7-Patient Refused. 9-Not Applicable-not attempted and the patient did not perform the activity before the current illness, exacerbation or injury. 10-Not Attempted due to Environmental Limitations-(lack of equipment, weather restraints, etc.). 88-Not Attempted due to Medical Conditions or Safety Concerns. Lower Body Dressing (QC): 2 (Pt used equipment to doff and don socks and shoes. Pt required cues on how to use the equipment. Please see note below.) Other Treatment Pt seated on the chair. present, Pt agrees to therapy. Patient ambulated to therapy gym. Required CGA when walking to therapy gym with walker. OT presented AE to practice LE dressing. Pt. attempted to doff shoes with dressing stick, but shoes were too tight. OT doffed them. Pt. attempted to don a different right shoe, but had difficulty using shoe horn. OT took left shoe and loosened shoe laces first. Shoe laces stayed tied, but pt. able to don this much easier using shoe horn. Pt ambulated back to his room CGA and walker. Pt seated in chair call light, alarm and phone call in reach. All needs met. Education OT Patient Education: Correct positioning, Modified ADL techniques, Progress toward Goal/Update tx plan, Purpose of tx/functional activities, Reviewed precautions, Rehab process, Transfer techniques, Use of adapted equipment Teaching Recipient: Patient Teaching Methods: Demonstration, Discussion Response to Teaching: Verbalize Understanding, Return Demonstration OT Short Term Goals Short Term Goals Time Frame: Apr 02, 2019 Eating(FIM): 5 Grooming(FIM): 4 Bathing(FIM): 4 Upper Body Dressing(FIM): 4 Lower Body Dressing(FIM): 4 Toileting(FIM): 4 Transfers (B,C,W/C) (FIM): 4 Toilet/Commode Transfer(FIM): 4 Shower Transfer(FIM): 4 Additional Short Term Goals: 1-Demonstrate ADL Tasks, 2-Verbalize Understanding, 3-ImproveStrength/Edmund 1=Demonstrate adherence to instructed precautions during ADL tasks. 2=Patient will verbalize/demonstrate understanding of assistive devices/modifications for ADL. 3=Patient will improve strength/tolerance for activity to enable patient to perform ADL's. OT Contact Centre Supervisor Goals Group Home Goals Time Frame: Apr 09, 2019 Eating (QC): 6 Oral Hygiene (QC): 6 Shower/Bathe Self (QC): 4 Upper Body Dressing (QC): 5 Lower Body Dressing (QC): 5 On/Off Footwear (QC): 5 Toileting Hygiene (QC): 6 Toilet/Commode Transfer (QC): 6 Additional Goals: 1-Demonstrate ADL Tasks, 2-Verbalize Understanding, 3- ImproveStrength/Edmund 1=Demonstrate adherence to instructed precautions during ADL tasks. 2=Patient will verbalize/demonstrate understanding of assistive devices/modifications for ADL. 3=Patient will improve strength/tolerance for activity to enable patient to perform ADL's. OT Education/Plan Problem List/Assessment Assessment: Decreased Activ Tolerance, Decreased Safety Aware, Dependent Transfers, Impaired Cognition, Impaired Funct Balance, Impaired I ADL's, Impaired Self-Care Skills Discharge Recommendations Plan/Recommendations: Continue POC Therapy Discharge Recommendati: Post Acute OT Equpiment Recommendations-D/C: Hip Kit Treatment Plan/Plan of Care Treatment,Training & Education: Yes Patient would benefit from OT for education, treatment and training to promote independence in ADL's, mobility, safety and/or upper extremity function for ADL's. Plan of Care: ADL Retraining, Functional Mobility, Group Exercise/Act as Ind, UE Funct Exercise/Act Treatment Duration: Apr 09, 2019 Frequency: At least 5 of 7 days/Wk (IRF) Estimated Hrs Per Day: 1.5 hours per day Agreement: Yes Rehab Potential: Good Time/GCodes Start Time: 13:00 Stop Time: 13:30 Total Time Billed (hr/min): 30 Billed Treatment Time 1, ADL x 2 ZACHERY SULLIVAN OT Mar 29, 2019 15:06
[2019-03-29] MEDS: TAMSULOSIN 0.4 MG (FLOMAX) CAP PO SCH (17:34)
--- NOTE | 2019-03-29 17:36 | NUR ---
1 LORTAB GIVEN AT 1516. ORDERS TO GIVE 1-2 TABS PO Q4H PRN PAIN. 2ND LORTAB GIVEN AT THIS TIME PER PATIENT'S REQUEST.
[2019-03-29 17:37] VITALS: BP 125/73
--- NOTE | 2019-03-29 19:38 | NUR ---
MAY RESUME ASA ON 03-29-[address] [facility] DC PAPERWORK. DR. CAVANAUGH NOTIFIED WITH ORDERS TO RESUME.
[2019-03-29] MEDS: eZETimibe 10 MG (ZETIA) TABLET PO SCH (20:02)
[2019-03-29] MEDS: NIACIN 500 MG TABLET PO SCH (20:03)
[2019-03-29] MEDS: GABAPENTIN 100 MG (NEURONTIN) CAP PO SCH (20:03)
[2019-03-29] MEDS: TOLTERODINE LA 4 MG (DETROL) CAP PO SCH (20:03)
[2019-03-29] MEDS: TERAZOSIN 2 MG (HYTRIN) CAP PO SCH (20:04)
[2019-03-29] MEDS: ASPIRIN E.C. 325 MG (ECOTRIN) TABLET PO SCH (20:13)
[2019-03-30] MEDS: HYDROcodone/APAP 10 MG/325 MG (LORTAB) TAB PO PRN ×4 (02:45→23:52)
[2019-03-30 04:53] VITALS: BP 131/86
--- NOTE | 2019-03-30 04:55 | NUR ---
patient had episode of incontinence throughout evening. states he was 'sleeping too deep' patient ambulated to br, gait belt safety , aspen on. voided. staff retrieved clothing, patient performed hygiene and donned new gown and depends. Addendum: 03/30/19 at 0457 by STEPHAN ROSARIO RN staff contact guard for safety. even, steady gait. touch only during ambulation. patient remained alert and oriented throughout evening. bed alarm on for safety.
[2019-03-30] MEDS: glipiZIDE 5 MG (GLUCOTROL) TAB PO SCH (07:13)
[2019-03-30] MEDS: metFORMIN 500 MG (GLUCOPHAGE) TAB PO SCH ×2 (07:13→17:11)
[2019-03-30] MEDS: TROSPIUM 20 MG (SANCTURA) TAB PO SCH ×2 (07:13→17:11)
[2019-03-30] MEDS: amLODIPine 5 MG (NORVASC) TAB PO SCH (09:00)
[2019-03-30] MEDS: POLYETHYLENE GLYCOL 17 GM (MIRALAX) PACK PO SCH ×2 (09:00→21:00)
[2019-03-30] MEDS: LOSARTAN 100 MG (COZAAR) TABLET PO SCH (09:00)
[2019-03-30] MEDS: SENNA W/DOCUSATE (SENOKOT S) TABLET PO SCH ×2 (09:00→21:00)
--- NOTE | 2019-03-30 09:07 | Physical Therapy Daily Note ---
PT Daily Note-Current Subjective Patient agrees to PT at this time. Patient reports he is feeling good this morning. Pain Numeric Pain Scale: 6 Location: Lower Location Body Site: Back Pain Description: Ache Mental Status Patient Orientation: Person, Place, Time, Situation Transfers SCALE: Activities may be completed with or without assistive devices. 7-Anqxewhvtz-lasmisn completes the activity by him/herself with no assistance from a helper. 5-Set-up or Clean-up Assistance-helper sets up or cleans up; patient completes activity. [place] assists only prior to or following the activity. 4-Supervision or Touching Assistance-helper provides verbal cues and/or to uching/steadying and/or contact guard assistance as patient completes activity. Assistance may be provided throughout the activity or intermittently. 3-Partial/Moderate Assistance-helper does LESS THAN HALF the effort. Reserve lifts, holds or supports trunk or limbs, but provides less than half the effort. 2-Substantial/Maximal Assistance-helper does MORE THAN HALF the effort. Reserve lifts or holds trunk or limbs and provides more than half the effort. 3-Biirvtygn-orakjj does ALL the effort. Patient does none of the effort to complete the activity. Or, the assistance of 2 or more helpers is required for the patient to complete the activity. If activity was not attempted, code reason: 7-Patient Refused. 9-Not Applicable-not attempted and the patient did not perform the activity before the current illness, exacerbation or injury. 10-Not Attempted due to Environmental Limitations-(lack of equipment, weather restraints, etc.). 88-Not Attempted due to Medical Conditions or Safety Concerns. Sit to Stand (QC): 5 Chair/Pos-uq-Uaqig Xfer(QC): 5 Weight Bearing Right Lower Extremity: Right Full Weight Bearing Left Lower Extremity: Left Full Weight Bearing Gait Training Does the Patient Walk?: Yes Distance: 100' Walk 10 feet (QC): 4 Walk 50 ft with 2 Turns(QC): 4 Gait Assistive Device: FWW Step through pattern, narrow DESHAUN, required cues to remain inside walker with turns Stair Training Stair Training: Handrails/: 2 handrails #of Steps: 4 (x2) 1 Step (curb) (QC): 4 4 Steps (QC): 4 Stairs: Pattern: Step to (some reciprocal steps) Exercises Seated Therapy Exercises: Ankle pumps, Sit to stand (x3, without UE assistance), Long arc quads, Hip flexion, Hip abd/add Seated Reps: 10 Standing: Hip Abduction, Hamstring curls, Heel/toe raises, Marching, Weight shifts Standing Reps: 10 Assessment Patient able to demonstrate good walking mechanics but required cues with turns to keep walker with him as patient has tendency to step to the side of FWW. Educated patient on safety of good walker mechanics and practiced turns and side stepping with good demonstration. Patient demonstrated good balance within // bars with narrow DESHAUN and minimal UE support. Patient able to ascend and descend stairs with use of two railings, requiring reminders to place entire foot on stairs for safety. Patient performed some reciprocal pattern with ascending and primarily step to pattern with descending. PT Short Term Goals Short Term Goals Time Frame: Mar 30, 2019 Gait Distance Comment: 150 mod (I) Gait Assistive Device: FWW PT Mcfp Goals Mcfp Goals PT Mcfp Goals Time Frame: Apr 09, 2019 Sit to Lying (QC): 6 Lying-Sitting on Side/Bed(QC): 6 Sit to Stand (QC): 6 Roll Left to Right (QC): 6 Chair/Plh-ti-Pepfq Xfer(QC): 6 Car Transfer (QC): 5 Does the Patient Walk: Yes Distance: 150 Walk 10 feet (QC): 6 Walk 10ft-Uneven Surface(QC): 6 Walk 50ft with 2 Turns (QC): 6 Walk 150 ft (QC): 6 Gait Level of Assist: 6 Gait Assistive Device: FWW Does the Pt use WC or Scooter?: No 1 Step (curb) (QC): 5 4 Steps (QC): 5 12 Steps (QC): 4 Stairs Level Of Assist: 5 Picking up an Object (QC): 4 PT Plan Treatment/Plan Treatment Plan: Continue Plan of Care Treatment Plan: Bed Mobility, Education, Functional Activity Edmund, Functional Strength, Group Therapy, Gait, Safety, Therapeutic Exercise, Transfers Treatment Duration: Apr 09, 2019 Frequency: At least 5 of 7 days/Wk (IRF) Estimated Hrs Per Day: 1.5 hours per day Patient and/or Family Agrees t: Yes Safety Risks/Education Patient Education: Gait Training Teaching Recipient: Patient Teaching Methods: Demonstration, Discussion Response to Teaching: Verbalize Understanding, Return Demonstration Time/GCodes Time In: 800 Time Out: 900 Total Billed Treatment Time: 60 Total Billed Treatment 1 visit EX 15min NM 15min GT 15min FA 15min STEFANIE STRATTON PATTERNATOR Mar 30, 2019 09:07
--- NOTE | 2019-03-30 10:12 | PM&R Progress Note ---
Subjective HPI/CC On Admission Date Seen by Provider: Mar 30, 2019 Time Seen by Provider: 08:30 Chief complaint: Debility following lumbar spine surgery with myelopathy History of present illness: This is a 74-year-old white male clinic patient of Dr. Dougherty who has a past medical history of hypertension, hyperlipidemia, BPH managed by urology Dr. Woods and transition ischemic attacks with subsequent presumed vascular dementia managed by neurology at [facility] who presents following an uncomplicated lumbar spine surgery but having a slow recovery in need of intensive rehabilitation prior to going home with his . He is having quite a bit of poor recall did not recall having surgery but he does remember talking to me for 2 days over at [place] at [facility] where I was consulted. He was having urinary retention shortly after surgery so I did go ahead and recheck out to his urologist who gave the nurse orders for post void residual bladder scanning. He has not had a bowel movement since before surgery. His is very aware of the fact that dementia will preclude a fast recovery but he is in the midst of evaluation from PT and OT in order to regain as much function as quickly as possible. He denies any current pain. I do review his home medication and my consult report. Subjective/Events-last exam More clear today Uses his walker but sometimes forgets it DC is planned for next week Walking only 100 feet but doing pretty well Feels like he is doing much better Checked meds and labs Reviewed therapy notes Conferred with music journalist of Systems Musculoskeletal: hand pain Neurological: Confusion Objective Exam Vital Signs Vital Signs Date Time Temp Pulse Resp B/P (MAP) Pulse Ox O2 Delivery O2 Flow Rate FiO2 03/30/19 21:00 Room Air 03/30/19 18:00 37.2 102 18 141/87 (105) 97 Capillary Refill : Less Than 3 Seconds General Appearance: No Apparent Distress, WD/WN, Chronically ill, Thin, Other (frail) HEENT: PERRL/EOMI, Normal ENT Inspection, Pharynx Normal, Moist Mucous Membranes Neck: Full Range of Motion, Normal Inspection, Non Tender, Supple Respiratory: Chest Non Tender, Lungs Clear, Normal Breath Sounds, No Accessory Muscle Use, No Respiratory Distress Cardiovascular: Regular Rate, Rhythm, No Edema, No Gallop, No JVD, No Murmur Gastrointestinal: Normal Bowel Sounds, No Organomegaly, No Pulsatile Mass, Non Tender, Soft Back: Decreased Range of Motion, Muscle Spasm, Vertebral Tenderness Extremity: Normal Capillary Refill, Normal Inspection, Normal Range of Motion, Non Tender, No Calf Tenderness, No Pedal Edema Neurologic/Psychiatric: Alert, No Motor/Sensory Deficits, rn traveling II-XII Norm as Tested, Depressed Affect, Other (poor memory recall) Skin: Normal Color, Warm/Dry Lymphatic: No Adenopathy Results/Procedures Lab Patient resulted labs reviewed. FIM Transfers Therapy Code Descriptions/Definitions Functional [place] Measure: 0=Not Assessed/NA 4=Minimal Assistance 1=Total Assistance 5=Supervision or Setup 2=Maximal Assistance 6=Modified [place] 3=Moderate Assistance 7=Complete IndependenceSCALE: Activities may be completed with or without assistive devices. 7-Zbpgpodyyi-bgqiohy completes the activity by him/herself with no assistance from a helper. 5-Set-up or Clean-up Assistance-helper sets up or cleans up; patient completes activity. [place] assists only prior to or following the activity. 4-Supervision or Touching Assistance-helper provides verbal cues and/or touching/steadying and/or contact guard assistance as patient completes activity. Assistance may be provided throughout the activity or intermittently. 3-Partial/Moderate Assistance-helper does LESS THAN HALF the effort. Nora lifts, holds or supports trunk or limbs, but provides less than half the effort. 2-Substantial/Maximal Assistance-helper does MORE THAN HALF the effort. Nora lifts or holds trunk or limbs and provides more than half the effort. 0-Qlzxvptdr-yovwlo does ALL the effort. Patient does none of the effort to complete the activity. Or, the assistance of 2 or more helpers is required for the patient to complete the activity. If activity was not attempted, code reason: 7-Patient Refused. 9-Not Applicable-not attempted and the patient did not perform the activity before the current illness, exacerbation or injury. 10-Not Attempted due to Environmental Limitations-(lack of equipment, weather restraints, etc.). 88-Not Attempted due to Medical Conditions or Safety Concerns. Roll Left to Right (QC): 4 Sit to Lying (QC): 3 (Alisson for log roll to get LE into bed) Sit to Stand (QC): 5 Chair/Led-ep-Aanxg Xfer(QC): 5 Car Transfer (QC): 3 Gait Training Does the Patient Walk?: Yes Distance (FIM): 3=150 ft Distance: 100' Walk 10 feet (QC): 4 Walk 50 ft with 2 Turns(QC): 4 Walk 150 ft (QC): 4 (SBA) Walking 10ft/uneven surface-QC: 4 Gait Persons Needed: 1 Gait Assistive Device: FWW Wheelchair Training Does the Pt Use a Wheelchair?: No Stair Training Stair Training: Handrails/: 2 handrails #of Steps: 4 (x2) 1 Step (curb) (QC): 4 4 Steps (QC): 4 12 Steps (QC): 88 Stairs: Pattern: Step to (some reciprocal steps) Balance Picking up an Object (QC): 88 ADL-Treatment Eating (QC): 6 (Pt demonstrates ability to open containers/packages by self and use regular utensils to eat.) Oral Hygiene (QC): 5 (Pt. able to brush teeth seated at sink with increased time needed.) Bathing Location: L Arm, R Arm, L Upper Leg, R Upper Leg, Chest, Abdomen, Buttocks, Perineal Area Shower/Bathe Self (QC): 4 (CGA in stance and multiple cues. Pt. seemed to forget at times that he had already completed a task, and would start it over.) Upper Body Dressing (QC): 4 (SBA to don shirt. SBA to doff brace. Minimal assist to don brace.) Lower Body Dressing (QC): 2 (Pt used equipment to doff and don socks and shoes. Pt required cues on how to use the equipment. Please see note below.) On/Off Footwear (QC): 1 Toileting Hygiene (QC): 4 Toilet Transfer (QC): 4 Assessment/Plan Assessment and Plan Assess & Plan/Chief Complaint Assessment: Status post uncomplicated lumbar spine surgery with myelopathy with slow recovery Dementia TIA history Smoker Hypertension Hyperlipidemia Chronic constipation BPH New urinary incontinence Diabetes mellitus Plan: Appreciate urology consultation Inpatient rehabilitation protocol Pain control Monitor blood sugar Check labs prn Bowel regimen to maintain DC Sat since off work as long as needed (1) Lumbar myelopathy (2) Dementia (3) Hx TIA/stroke w/o resid (4) Smoker (5) Hypertension (6) Hyperlipidemia (7) Diabetes mellitus (8) BPH (benign prostatic hyperplasia) (9) Urinary incontinence (10) Constipation (11) Frailty LENNY CAVANAUGH 23, 2019 10:12
[2019-03-30] MEDS: ASPIRIN E.C. 325 MG (ECOTRIN) TABLET PO SCH (10:16)
[2019-03-30] MEDS: LORATADINE (CLARITIN) 10 MG TAB PO SCH (10:16)
--- NOTE | 2019-03-30 10:16 | Speech Therapy Daily Note ---
Speech Daily Progress Note Subjective Date Seen by Provider: Mar 30, 2019 Time Seen by Provider: 00:30 Patient was resting in his chair after PT. Objective The patient completed safety awareness tasks related to his daily needs at 80% given 10% cues. Assessment Assessment Current Status: Good Progress Treatment Plan Continue Plan of Care Speech Short Term Goals Short Term Goals Short Term Goals 1) Patient will complete memory tasks related to his daily needs with 90% or greater with 10% cues. 2) Patient will complete problem solving tasks related to his daily needs with 9 0% or greater with 10% cues. 3) Patient will complete safety awareness tasks related to his daily needs with 90% or greater with 10% cues. Speech Assisted Goals [place]man Goals Patient will improve his cognitive-communication level so that he may return home safely. Speech-Plan Patient/Family Goals Patient/Family Goals: Patient plans on returning home with his upon discharge. Treatment Plan Speech Therapy Treatment Plan: Continue Plan of Care Patient is progressing toward meeting ST goals. Treatment Duration: Apr 08, 2019 Frequency: 5 times per week Estimated Hrs Per Day: .5 hour per day Rehab Potential: Good Barriers to Learning: Patient has cognitive deficits. Pt/Family Agrees to Plan: Yes Safety Risks/Education Teaching Recipient: Patient Teaching Methods: Demonstration, Discussion Response to Teaching: Verbalize Understanding, Return Demonstration Education Topics Provided: Continued safety and communication of wants/needs. Time Speech Therapy Time In: 10:00 Speech Therapy Time Out: 10:30 Total Billed Time: 30 Billed Treatment Time 1BELINDA BETH[address] ST Mar 30, 2019 10:16
--- NOTE | 2019-03-30 10:54 | Progress Note - Urology ---
Progress Note-Urology Progress Notes/Assess & Plan Progress/Assessment & Plan WE WILL SEE AT OFFICE PREVIOUSLY SCHEDULED. STAY ON SAME MEDICINES Final Diagnosis BPH AND OAB SHIRLEY HOBBS MD Mar 30, 2019 10:54
--- NOTE | 2019-03-30 12:00 | Occupational Ther Daily Note ---
OT Current Status-Daily Note Subjective Pt up in chair. Pt did not complain of pain. Appearance Pt alert in chair. Pt agrees therapy. Mental Status/Objective Patient Orientation: Person, Place, Time, Situation ADL-Treatment Therapy Code Descriptions/Definitions Functional [place] Measure: 0=Not Assessed/NA 4=Minimal Assistance 1=Total Assistance 5=Supervision or Setup 2=Maximal Assistance 6=Modified [place] 3=Moderate Assistance 7=Complete IndependenceSCALE: Activities may be completed with or without assistive devices. 0-Kmhmiwyklv-oxarfkf completes the activity by him/herself with no assistance from a helper. 5-Set-up or Clean-up Assistance-helper sets up or cleans up; patient completes activity. [place] assists only prior to or following the activity. 4-Supervision or Touching Assistance-helper provides verbal cues and/or touching/steadying and/or contact guard assistance as patient completes activity. Assistance may be provided throughout the activity or intermittently. 3-Partial/Moderate Assistance-helper does LESS THAN HALF the effort. [place] lifts, holds or supports trunk or limbs, but provides less than half the effort. 2-Substantial/Maximal Assistance-helper does MORE THAN HALF the effort. [place] lifts or holds trunk or limbs and provides more than half the effort. 8-Vlodbfgrr-ghmxfd does ALL the effort. Patient does none of the effort to complete the activity. Or, the assistance of 2 or more helpers is required for the patient to complete the activity. If activity was not attempted, code reason: 7-Patient Refused. 9-Not Applicable-not attempted and the patient did not perform the activity before the current illness, exacerbation or injury. 10-Not Attempted due to Environmental Limitations-(lack of equipment, weather restraints, etc.). 88-Not Attempted due to Medical Conditions or Safety Concerns. Oral Hygiene (QC): 5 (Pt required SBA to complete oral hygiene. Pt sitted in chair at sink while completing task.) Bathing Location: L Arm, R Arm, L Upper Leg, R Upper Leg, L Lower Leg (inclu ding foot), R Lower Leg (including foot), Chest, Abdomen, Buttocks, Perineal Area Shower/Bathe Self (QC): 4 (Pt required CGA while taking shower. Pt required more time to complete the task.) Upper Body Dressing (QC): 5 (Pt completed UB dressing task with set up only.) Lower Body Dressing (QC): 4 (Pt required assist to manipulate dressing stick and verbal cues to use correctly. Pt pulled pants up legs then SBA in stance to hike pants. Pt required CGA with left shoe. OT reminded pt of back precaution and the correct technique to use shoe horn.) Toileting Hygiene (QC): 4 (Pt required supervision to complete toilet hygiene for safety.) Toilet Transfer (QC): 4 ( Pt used grab bar to stand but required CGA to stand.) Other Treatment Pt completed activity and ambulated back in the room with wheelchair. in room, brought pt new shaving machine. Pt declined to shave. OT assisted pt in chair with alarm on, in room, all needs met. Education OT Patient Education: Correct positioning, Instructions don/doff splint/brace, Modified ADL techniques, Progress toward Goal/Update tx plan, Purpose of tx/functional activities, Reviewed precautions, Safety issues, Transfer techniques, Use of adapted equipment Teaching Recipient: Patient Teaching Methods: Demonstration, Discussion Response to Teaching: Verbalize Understanding, Return Demonstration OT Short Term Goals Short Term Goals Time Frame: Apr 02, 2019 Eating(FIM): 5 Grooming(FIM): 4 Bathing(FIM): 4 Upper Body Dressing(FIM): 4 Lower Body Dressing(FIM): 4 Toileting(FIM): 4 Transfers (B,C,W/C) (FIM): 4 Toilet/Commode Transfer(FIM): 4 Shower Transfer(FIM): 4 Additional Short Term Goals: 1-Demonstrate ADL Tasks, 2-Verbalize Understanding, 3-ImproveStrength/Edmund 1=Demonstrate adherence to instructed precautions during ADL tasks. 2=Patient will verbalize/demonstrate understanding of assistive devices/modifications for ADL. 3=Patient will improve strength/tolerance for activity to enable patient to perform ADL's. OT Resident Care Associate Goals Resident Care Associate Goals Time Frame: Apr 09, 2019 Eating (QC): 6 Oral Hygiene (QC): 6 Shower/Bathe Self (QC): 4 Upper Body Dressing (QC): 5 Lower Body Dressing (QC): 5 On/Off Footwear (QC): 5 Toileting Hygiene (QC): 6 Toilet/Commode Transfer (QC): 6 Additional Goals: 1-Demonstrate ADL Tasks, 2-Verbalize Understanding, 3-ImproveStrength/Edmund 1=Demonstrate adherence to instructed precautions during ADL tasks. 2=Patient will verbalize/demonstrate understanding of assistive devices/modifications for ADL. 3=Patient will improve strength/tolerance for activity to enable patient to perform ADL's. OT Education/Plan Problem List/Assessment Assessment: Decreased Safety Aware, Impaired Cognition, Impaired Coordination, Impaired Funct Balance, Impaired I ADL's, Impaired Self-Care Skills Discharge Recommendations Plan/Recommendations: Continue POC Equpiment Recommendations-D/C: Hip Kit Treatment Plan/Plan of Care Patient would benefit from OT for education, treatment and training to promote independence in ADL's, mobility, safety and/or upper extremity function for ADL's. Plan of Care: ADL Retraining, Cognitive Retraining, Functional Mobility, Group Exercise/Act as Ind, UE Funct Exercise/Act Treatment Duration: Apr 09, 2019 Frequency: At least 5 of 7 days/Wk (IRF) Estimated Hrs Per Day: 1.5 hours per day Agreement: Yes Rehab Potential: Good Time/GCodes Start Time: 10:30 Stop Time: 11:50 Total Time Billed (hr/min): 80 Billed Treatment Time 1, ADL X 5 ROSANNE HUNT Mar 30, 2019 12:00
--- NOTE | 2019-03-30 13:53 | Physical Therapy Daily Note ---
PT Daily Note-Current Subjective Pts visiting and supportive. Pt. states he was just saying that he would like to take a walk. Pain Numeric Pain Scale: 5-Moderate Pain Location: Medial Location Body Site: Back Pain Description: Ache Mental Status Patient Orientation: Normal For Age Attachments: Other-See Comments (aspen back brace) Transfers SCALE: Activities may be completed with or without assistive devices. 5-Axzceexkye-ntuwkdf completes the activity by him/herself with no assistance from a helper. 5-Set-up or Clean-up Assistance-helper sets up or cleans up; patient completes activity. [place] assists only prior to or following the activity. 4-Supervision or Touching Assistance-helper provides verbal cues and/or touching/steadying and/or contact guard assistance as patient completes activity. Assistance may be provided throughout the activity or intermittently. 3-Partial/Moderate Assistance-helper does LESS THAN HALF the effort. [place] lifts, holds or supports trunk or limbs, but provides less than half the effort. 2-Substantial/Maximal Assistance-helper does MORE THAN HALF the effort. [place] lifts or holds trunk or limbs and provides more than half the effort. 1-Dqsceomxl-xkcsyh does ALL the effort. Patient does none of the effort to complete the activity. Or, the assistance of 2 or more helpers is required for the patient to complete the activity. If activity was not attempted, code reason: 7-Patient Refused. 9-Not Applicable-not attempted and the patient did not perform the activity before the current illness, exacerbation or injury. 10-Not Attempted due to Environmental Limitations-(lack of equipment, weather restraints, etc.). 88-Not Attempted due to Medical Conditions or Safety Concerns. all TRFs SBA Weight Bearing Right Lower Extremity: Right Full Weight Bearing Left Lower Extremity: Left Full Weight Bearing Gait Training Does the Patient Walk?: Yes Gait Assistive Device: FWW 150 ft x 2 FWW needs directed to destination, pt. instructed to keep safe postion in FWW as pt gets feet outside of prime area. Kyphotic and slow Exercises NuStep Minutes: 8 NuStep Workload: 3 Treatments Nustep for U&L extremity reciprocal exercise reinforcing gait and slight gentle back rotation Assessment Current Status: Good Progress progressing well in all phases, decreased pain , increased functional mob PT Short Term Goals Short Term Goals Time Frame: Mar 30, 2019 Gait Distance Comment: 150 mod (I) Gait Assistive Device: FWW PT [employer] Salesperson Goals Detention Goals PT Detention Goals Time Frame: Apr 09, 2019 Sit to Lying (QC): 6 Lying-Sitting on Side/Bed(QC): 6 Sit to Stand (QC): 6 Roll Left to Right (QC): 6 Chair/Esl-aq-Tfhnc Xfer(QC): 6 Car Transfer (QC): 5 Does the Patient Walk: Yes Distance: 150 Walk 10 feet (QC): 6 Walk 10ft-Uneven Surface(QC): 6 Walk 50ft with 2 Turns (QC): 6 Walk 150 ft (QC): 6 Gait Level of Assist: 6 Gait Assistive Device: FWW Does the Pt use WC or Scooter?: No 1 Step (curb) (QC): 5 4 Steps (QC): 5 12 Steps (QC): 4 Stairs Level Of Assist: 5 Picking up an Object (QC): 4 PT Plan Treatment/Plan Treatment Plan: Continue Plan of Care Treatment Plan: Bed Mobility, Education, Functional Activity Edmund, Functional Strength, Group Therapy, Gait, Safety, Therapeutic Exercise, Transfers Treatment Duration: Apr 09, 2019 Frequency: At least 5 of 7 days/Wk (IRF) Estimated Hrs Per Day: 1.5 hours per day Patient and/or Family Agrees t: Yes Safety Risks/Education Patient Education: Gait Training, Transfer Techniques, Correct Positioning, Disease Process, Safety Issues Teaching Recipient: Patient Teaching Methods: Demonstration, Discussion Response to Teaching: Verbalize Understanding, Return Demonstration, Reinforcement Needed Time/GCodes Time In: 1315 Time Out: 1330 Total Billed Treatment Time: 15 Total Billed Treatment 1,GT15m STEFANIE STRATTON STAVE JOINTER Mar 30, 2019 13:53
--- NOTE | 2019-03-30 16:39 | NUR ---
Reviewed weekly Care Team Conference Summary with patient and spouse. Patient is agreeable to information discussed; however, patient does not agree to a continued with review on Thursday, April 06. In fact, patient and spouse are hopeful the patient can discharge home, soon. Spouse indicates she can take off work for as long as she needs to in order to remain home with patient. The possibility of HHC discussed, patient agreeable. Spouse also requesting to ambulate patient around the unit. Spoke with PT/Courtroom Reporter. Patient instructed to ask his PT, in the morning. Will continue to follow for discharge planning.
--- NOTE | 2019-03-30 16:45 | NUR ---
Dr. Saldana has approved patient to dismiss home, Thursday. Patient and spouse notified of this information and pleased. Patient was instructed to ask his PT, in the morning, if his spouse can ambulate him. Will continue to follow for discharge planning.
[2019-03-30] MEDS: TAMSULOSIN 0.4 MG (FLOMAX) CAP PO SCH (17:11)
[2019-03-30 18:00] VITALS: BP 141/87
[2019-03-30] MEDS: TOLTERODINE LA 4 MG (DETROL) CAP PO SCH (20:58)
[2019-03-30] MEDS: eZETimibe 10 MG (ZETIA) TABLET PO SCH (20:58)
[2019-03-30] MEDS: GABAPENTIN 100 MG (NEURONTIN) CAP PO SCH (20:59)
[2019-03-30] MEDS: TERAZOSIN 2 MG (HYTRIN) CAP PO SCH (20:59)
[2019-03-30] MEDS: NIACIN 500 MG TABLET PO SCH (20:59)
[2019-03-31] MEDS: TROSPIUM 20 MG (SANCTURA) TAB PO SCH ×2 (05:43→16:49)
[2019-03-31] MEDS: glipiZIDE 5 MG (GLUCOTROL) TAB PO SCH (05:43)
[2019-03-31] MEDS: HYDROcodone/APAP 10 MG/325 MG (LORTAB) TAB PO PRN ×3 (05:44→19:02)
[2019-03-31] MEDS: metFORMIN 500 MG (GLUCOPHAGE) TAB PO SCH ×2 (05:44→16:49)
[2019-03-31 06:36] VITALS: BP 121/79
[2019-03-31 09:00] VITALS: BP 126/80
[2019-03-31] MEDS: amLODIPine 5 MG (NORVASC) TAB PO SCH (09:04)
[2019-03-31] MEDS: LOSARTAN 100 MG (COZAAR) TABLET PO SCH (09:04)
[2019-03-31] MEDS: LORATADINE (CLARITIN) 10 MG TAB PO SCH (09:04)
[2019-03-31] MEDS: ASPIRIN E.C. 325 MG (ECOTRIN) TABLET PO SCH (09:04)
[2019-03-31] MEDS: SENNA W/DOCUSATE (SENOKOT S) TABLET PO SCH ×2 (09:05→21:07)
--- NOTE | 2019-03-31 09:41 | PM&R Progress Note ---
Subjective HPI/CC On Admission Date Seen by Provider: Mar 31, 2019 Time Seen by Provider: 08:30 Chief complaint: Debility following lumbar spine surgery with myelopathy History of present illness: This is a 74-year-old white male clinic patient of Dr. Dougherty who has a past medical history of hypertension, hyperlipidemia, BPH managed by urology Dr. Woods and transition ischemic attacks with subsequent presumed vascular dementia managed by neurology at [facility] who presents following an uncomplicated lumbar spine surgery but having a slow recovery in need of intensive rehabilitation prior to going home with his . He is having quite a bit of poor recall did not recall having surgery but he does remember talking to me for 2 days over at [place] at [facility] where I was consulted. He was having urinary retention shortly after surgery so I did go ahead and recheck out to his urologist who gave the nurse orders for post void residual bladder scanning. He has not had a bowel movement since before surgery. His is very aware of the fact that dementia will preclude a fast recovery but he is in the midst of evaluation from PT and OT in order to regain as much function as quickly as possible. He denies any current pain. I do review his home medication and my consult report. Subjective/Events-last exam Discharge is planned on Thursday since his can be there. Forgets his walker at times. Seems confused at times especially at night. Overall prognosis really depends on the dementia issue. Checked meds and labs Reviewed therapy notes Conferred with wire photo operator of Systems General: Fatigue Musculoskeletal: back pain Neurological: Confusion Objective Exam Vital Signs Vital Signs Date Time Temp Pulse Resp B/P (MAP) Pulse Ox O2 Delivery O2 Flow Rate FiO2 03/31/19 18:45 37.1 96 20 149/90 (109) 97 Room Air Capillary Refill : Less Than 3 Seconds General Appearance: No Apparent Distress, WD/WN, Chronically ill, Thin, Other (frail) HEENT: PERRL/EOMI, Normal ENT Inspection, Pharynx Normal, Moist Mucous Membranes Neck: Full Range of Motion, Normal Inspection, Non Tender, Supple Respiratory: Chest Non Tender, Lungs Clear, Normal Breath Sounds, No Accessory Muscle Use, No Respiratory Distress Cardiovascular: Regular Rate, Rhythm, No Edema, No Gallop, No JVD, No Murmur Gastrointestinal: Normal Bowel Sounds, No Organomegaly, No Pulsatile Mass, Non Tender, Soft Back: Decreased Range of Motion, Muscle Spasm, Vertebral Tenderness Extremity: Normal Capillary Refill, Normal Inspection, Normal Range of Motion, Non Tender, No Calf Tenderness, No Pedal Edema Neurologic/Psychiatric: Alert, No Motor/Sensory Deficits, checker and packer II-XII Norm as Tested, Depressed Affect, Other (poor memory recall) Skin: Normal Color, Warm/Dry Lymphatic: No Adenopathy Results/Procedures Lab Patient resulted labs reviewed. FIM Transfers Therapy Code Descriptions/Definitions Functional [place] Measure: 0=Not Assessed/NA 4=Minimal Assistance 1=Total Assistance 5=Supervision or Setup 2=Maximal Assistance 6=Modified [place] 3=Moderate Assistance 7=Complete IndependenceSCALE: Activities may be completed with or without assistive devices. 8-Euhvnqxmyv-zwhtqap completes the activity by him/herself with no assistance from a helper. 5-Set-up or Clean-up Assistance-helper sets up or cleans up; patient completes activity. [place] assists only prior to or following the activity. 4-Supervision or Touching Assistance-helper provides verbal cues and/or touching/steadying and/or contact guard assistance as patient completes activity. Assistance may be provided throughout the activity or intermittently. 3-Partial/Moderate Assistance-helper does LESS THAN HALF the effort. [place] lifts, holds or supports trunk or limbs, but provides less than half the effort. 2-Substantial/Maximal Assistance-helper does MORE THAN HALF the effort. [place] lifts or holds trunk or limbs and provides more than half the effort. 2-Lihhpgjhg-tebmfd does ALL the effort. Patient does none of the effort to complete the activity. Or, the assistance of 2 or more helpers is required for the patient to complete the activity. If activity was not attempted, code reason: 7-Patient Refused. 9-Not Applicable-not attempted and the patient did not perform the activity before the current illness, exacerbation or injury. 10-Not Attempted due to Environmental Limitations-(lack of equipment, weather restraints, etc.). 88-Not Attempted due to Medical Conditions or Safety Concerns. Roll Left to Right (QC): 4 Sit to Lying (QC): 3 ([place] for log roll to get LE into bed) Sit to Stand (QC): 5 Chair/Qmj-dv-Siztn Xfer(QC): 5 Car Transfer (QC): 3 Gait Training Does the Patient Walk?: Yes Distance (FIM): 3=150 ft Distance: 100' Walk 10 feet (QC): 4 Walk 50 ft with 2 Turns(QC): 4 Walk 150 ft (QC): 4 (SBA) Walking 10ft/uneven surface-QC: 4 Gait Persons Needed: 1 Gait Assistive Device: FWW Wheelchair Training Does the Pt Use a Wheelchair?: No Stair Training Stair Training: Handrails/: 2 handrails #of Steps: 4 (x2) 1 Step (curb) (QC): 4 4 Steps (QC): 4 12 Steps (QC): 88 Stairs: Pattern: Step to (some reciprocal steps) Balance Picking up an Object (QC): 88 ADL-Treatment Eating (QC): 6 (Pt demonstrates ability to open containers/packages by self and use regular utensils to eat.) Oral Hygiene (QC): 5 (Pt required SBA to complete oral hygiene. Pt sitted in chair at sink while completing task.) Bathing Location: L Arm, R Arm, L Upper Leg, R Upper Leg, L Lower Leg (including foot), R Lower Leg (including foot), Chest, Abdomen, Buttocks, Perineal Area Shower/Bathe Self (QC): 4 (Pt required CGA while taking shower. Pt required more time to complete the task.) Upper Body Dressing (QC): 5 (Pt completed UB dressing task with set up only.) Lower Body Dressing (QC): 4 (Pt required assist to manipulate dressing stick a nd verbal cues to use correctly. Pt pulled pants up legs then SBA in stance to hike pants. Pt required CGA with left shoe. OT reminded pt of back precaution and the correct technique to use shoe horn.) On/Off Footwear (QC): 1 Toileting Hygiene (QC): 4 (Pt required supervision to complete toilet hygiene for safety.) Toilet Transfer (QC): 4 ( Pt used grab bar to stand but required CGA to stand.) Assessment/Plan Assessment and Plan Assess & Plan/Chief Complaint Assessment: Status post uncomplicated lumbar spine surgery with myelopathy with slow recovery Dementia TIA history Smoker Hypertension Hyperlipidemia Chronic constipation BPH New urinary incontinence Diabetes mellitus Plan: Appreciate urology consultation Inpatient rehabilitation protocol Pain control Monitor blood sugar Check labs prn Bowel regimen to maintain DC Sat since off work as long as needed (1) Lumbar myelopathy (2) Dementia (3) Hx TIA/stroke w/o resid (4) Smoker (5) Hypertension (6) Hyperlipidemia (7) Diabetes mellitus (8) BPH (benign prostatic hyperplasia) (9) Urinary incontinence (10) Constipation (11) Frailty LENNY CAVANAUGH DO Mar 31, 2019 09:41
[2019-03-31] MEDS: POLYETHYLENE GLYCOL 17 GM (MIRALAX) PACK PO SCH ×2 (09:51→21:08)
--- NOTE | 2019-03-31 10:19 | Speech Therapy Daily Note ---
Speech Daily Progress Note Subjective Date Seen by Provider: Mar 31, 2019 Time Seen by Provider: 00:30 Patient was sitting up in his chair after just finishing walking with PT. Objective Patient completed safety awareness tasks at 80% with 20% verbal cues/repetitions Assessment Assessment Current Status: Good Progress Treatment Plan Continue Plan of Care Speech Short Term Goals Short Term Goals Short Term Goals 1) Patient will complete memory tasks related to his daily needs with 90% or greater with 10% cues. 2) Patient will complete problem solving tasks related to his daily needs with 90% or greater with 10% cues. 3) Patient will complete safety awareness tasks related to his daily needs with 90% or greater with 10% cues. Speech Dye Tub Operator Goals [place] Goals Patient will improve his cognitive-communication level so that he may return home safely. Speech-Plan Patient/Family Goals Patient/Family Goals: Plans on returning home with his post rehab. Treatment Plan Speech Therapy Treatment Plan: Continue Plan of Care Patient has made good progress toward meeting his ST goals. Treatment Duration: Apr 08, 2019 Frequency: 5 times per week Estimated Hrs Per Day: .5 hour per day Rehab Potential: Good Barriers to Learning: Patient has early dementia. Pt/Family Agrees to Plan: Yes Safety Risks/Education Teaching Recipient: Patient Teaching Methods: Demonstration, Discussion Response to Teaching: Verbalize Understanding, Return Demonstration Education Topics Provided: Continued safety within his room. Time Speech Therapy Time In: 10:00 Speech Therapy Time Out: 10:30 Total Billed Time: 30 Billed Treatment Time 1B[address]INDA [address] Mar 31, 2019 10:19
--- NOTE | 2019-03-31 12:25 | Physical Therapy Daily Note ---
PT Daily Note-Current Subjective Pt sitting in recliner upon arrival. Pt agrees to PT. Mental Status Patient Orientation: Person, Place, Situation Attachments: Other-See Comments (Lumbar Back Brace) Transfers SCALE: Activities may be completed with or without assistive devices. 4-Pkstbbrger-cqcwhqq completes the activity by him/herself with no assistance from a helper. 5-Set-up or Clean-up Assistance-helper sets up or cleans up; patient completes activity. [place] assists only prior to or following the activity. 4-Supervision or Touching Assistance-helper provides verbal cues and/or touching/steadying and/or contact guard assistance as patient completes activity. Assistance may be provided throughout the activity or intermittently. 3-Partial/Moderate Assistance-helper does LESS THAN HALF the effort. [place] lifts, holds or supports trunk or limbs, but provides less than half the effort. 2-Substantial/Maximal Assistance-helper does MORE THAN HALF the effort. [place] lifts or holds trunk or limbs and provides more than half the effort. 2-Idmhwafdf-dskiya does ALL the effort. Patient does none of the effort to complete the activity. Or, the assistance of 2 or more helpers is required for the patient to complete the activity. If activity was not attempted, code reason: 7-Patient Refused. 9-Not Applicable-not attempted and the patient did not perform the activity before the current illness, exacerbation or injury. 10-Not Attempted due to Environmental Limitations-(lack of equipment, weather restraints, etc.). 88-Not Attempted due to Medical Conditions or Safety Concerns. Sit to Stand (QC): 5 Weight Bearing Right Lower Extremity: Right Full Weight Bearing Left Lower Extremity: Left Full Weight Bearing Gait Training Does the Patient Walk?: Yes Gait: 4 Distance: 100' Walk 10 feet (QC): 5 Walk 50 ft with 2 Turns(QC): 4 Gait Persons Needed: 1 Gait Assistive Device: FWW Pt demonstrates need at times for redirection to stay on task. Wheelchair Training Does the Pt Use a Wheelchair?: No Stair Training Stair Training: Handrails/: 2 handrails #of Steps: 4 1 Step (curb) (QC): 5 4 Steps (QC): 5 Stairs: Pattern: Step to Level of Assist: 5 Exercises Seated Therapy Exercises: Ankle pumps, Long arc quads, Hip flexion, Kicking activity, Hamstring Curls Seated Reps: 20 Treatments Pt transfers from sitting to standing then uses restroom. Pt ambulates in hallway and to Therapy Gym. Pt completes 1 set of 4 steps before needing to return to room for ST. BUILDING CONSTRUCTION SUPERVISOR will return after ST to complete morning Rx. Upon return, pt ambulates with BUILDING CONSTRUCTION SUPERVISOR for rest of Rx. Pt returns to room to rest in chair with alarm having all needs met, call light in hand. Assessment Current Status: Fair Progress Pt needs redirection at times. PT Short Term Goals Short Term Goals Time Frame: Mar 30, 2019 Gait Distance Comment: 150 mod (I) Gait Assistive Device: FWW PT Restaurant Expeditor Goals Restaurant Expeditor Goals PT Restaurant Expeditor Goals Time Frame: Apr 09, 2019 Sit to Lying (QC): 6 Lying-Sitting on Side/Bed(QC): 6 Sit to Stand (QC): 6 Roll Left to Right (QC): 6 Chair/Rfx-ew-Cqvsf Xfer(QC): 6 Car Transfer (QC): 5 Does the Patient Walk: Yes Distance: 150 Walk 10 feet (QC): 6 Walk 10ft-Uneven Surface(QC): 6 Walk 50ft with 2 Turns (QC): 6 Walk 150 ft (QC): 6 Gait Level of Assist: 6 Gait Assistive Device: FWW Does the Pt use WC or Scooter?: No 1 Step (curb) (QC): 5 4 Steps (QC): 5 12 Steps (QC): 4 Stairs Level Of Assist: 5 Picking up an Object (QC): 4 PT Plan Problem List Problem List: Activity Tolerance, Functional Strength, Safety Treatment/Plan Treatment Plan: Continue Plan of Care Treatment Plan: Bed Mobility, Education, Functional Activity [place], Functional Strength, Group Therapy, Gait, Safety, Therapeutic Exercise, Transfers Treatment Duration: Apr 09, 2019 Frequency: At least 5 of 7 days/Wk (IRF) Estimated Hrs Per Day: 1.5 hours per day Patient and/or Family Agrees t: Yes Safety Risks/Education Patient Education: Gait Training, Transfer Techniques, Correct Positioning, Safety Issues Teaching Recipient: Patient Teaching Methods: Discussion Response to Teaching: Verbalize Understanding Time/GCodes Time In: 945 Time Out: 1000 Total Billed Treatment Time: 45 Total Billed Treatment 1, GT (15m), FA (15m) & EX (15m) Time: 945-1000,1030-45 & [id number] STEPHAN SUN BUILDING CONSTRUCTION SUPERVISOR Mar 31, 2019 12:25
--- NOTE | 2019-03-31 12:52 | Occupational Ther Daily Note ---
OT Current Status-Daily Note Subjective Pt up in chair. Patient did not complain of pain. Appearance Pt agrees to therapy. Mental Status/Objective Patient Orientation: Person, Place Pt declined shower but agrees to do sponge bath. ADL-Treatment Therapy Code Descriptions/Definitions Functional [place] Measure: 0=Not Assessed/NA 4=Minimal Assistance 1=Total Assistance 5=Supervision or Setup 2=Maximal Assistance 6=Modified [place] 3=Moderate Assistance 7=Complete IndependenceSCALE: Activities may be completed with or without assistive devices. 0-Nmuhegccha-qipzepj completes the activity by him/herself with no assistance from a helper. 5-Set-up or Clean-up Assistance-helper sets up or cleans up; patient completes activity. [place] assists only prior to or following the activity. 4-Supervision or Touching Assistance-helper provides verbal cues and/or touching/steadying and/or contact guard assistance as patient completes activi ty. Assistance may be provided throughout the activity or intermittently. 3-Partial/Moderate Assistance-helper does LESS THAN HALF the effort. [place] lifts, holds or supports trunk or limbs, but provides less than half the effort. 2-Substantial/Maximal Assistance-helper does MORE THAN HALF the effort. [place] lifts or holds trunk or limbs and provides more than half the effort. 0-Kstwzuirk-dtbbec does ALL the effort. Patient does none of the effort to complete the activity. Or, the assistance of 2 or more helpers is required for the patient to complete the activity. If activity was not attempted, code reason: 7-Patient Refused. 9-Not Applicable-not attempted and the patient did not perform the activity before the current illness, exacerbation or injury. 10-Not Attempted due to Environmental Limitations-(lack of equipment, weather restraints, etc.). 88-Not Attempted due to Medical Conditions or Safety Concerns. Oral Hygiene (QC): 5 (Pt reported that he brushed his teeth earlier this morning with set up and did not want to do it again.) Bathing Location: L Arm, R Arm, L Upper Leg, R Upper Leg, L Lower Leg (including foot) (utilized long handled sponge to clean his feet.), R Lower Leg (including foot) (utilized long handled sponge to clean his feet), Chest, Abdomen, Buttocks, Perineal Area Shower/Bathe Self (QC): 4 (Pt declined shower but did sponge bathe at sink with supervision seated in chair.) Upper Body Dressing (QC): 5 (Pt completed UE dressing with set up.) Lower Body Dressing (QC): 4 (Pt required supervision and cues to remember to use sock aid and how to manipulate socks correctly. Pt. able to don brief and pants with no difficulty.) Toileting Hygiene (QC): 7 Toilet Transfer (QC): 7 Pt declined using the toillet. Other Treatment Pt completed sponge bath and dressing seated at sink side with OT supervision and with use of AE. Pt ambulated to therapy gym with walker with CGA. Pt participated in more Lower Body dressing training using adaptive equipment for independence in dressing. Pt ambulated back to his room. in room, call light, alarm in reach. All needs met. Education OT Patient Education: Correct positioning, Instructions don/doff splint/brace, Modified ADL techniques, Progress toward Goal/Update tx plan, Purpose of tx/functional activities, Reviewed precautions, Rehab process, Transfer techniques, Use of adapted equipment Teaching Recipient: Patient Teaching Methods: Demonstration, Discussion Response to Teaching: Verbalize Understanding, Return Demonstration OT Short Term Goals Short Term Goals Time Frame: Apr 02, 2019 Eating(FIM): 5 Grooming(FIM): 4 Bathing(FIM): 4 Upper Body Dressing(FIM): 4 Lower Body Dressing(FIM): 4 Toileting(FIM): 4 Transfers (B,C,W/C) (FIM): 4 Toilet/Commode Transfer(FIM): 4 Shower Transfer(FIM): 4 Additional Short Term Goals: 1-Demonstrate ADL Tasks, 2-Verbalize Understanding, 3-ImproveStrength/Edmund 1=Demonstrate adherence to instructed precautions during ADL tasks. 2=Patient will verbalize/demonstrate understanding of assistive de vices/modifications for ADL. 3=Patient will improve strength/tolerance for activity to enable patient to perform ADL's. OT Hearing Impaired Teacher Goals Hearing Impaired Teacher Goals Time Frame: Apr 09, 2019 Eating (QC): 6 Oral Hygiene (QC): 6 Shower/Bathe Self (QC): 4 Upper Body Dressing (QC): 5 Lower Body Dressing (QC): 5 On/Off Footwear (QC): 5 Toileting Hygiene (QC): 6 Toilet/Commode Transfer (QC): 6 Additional Goals: 1-Demonstrate ADL Tasks, 2-Verbalize Understanding, 3- ImproveStrength/Edmund 1=Demonstrate adherence to instructed precautions during ADL tasks. 2=Patient will verbalize/demonstrate understanding of assistive devices/modifications for ADL. 3=Patient will improve strength/tolerance for activity to enable patient to perform ADL's. OT Education/Plan Problem List/Assessment Assessment: Decreased Activ Tolerance, Dependent Transfers, Impaired Funct Balance, Impaired I ADL's, Impaired Self-Care Skills Discharge Recommendations Plan/Recommendations: Continue POC Therapy Discharge Recommendati: Post Acute OT Equpiment Recommendations-D/C: Hip Kit Treatment Plan/Plan of Care Treatment,Training & Education: Yes Patient would benefit from OT for education, treatment and training to promote independence in ADL's, mobility, safety and/or upper extremity function for ADL's. Plan of Care: ADL Retraining, Caregiver Training, Cognitive Retraining, Functional Mobility, Group Exercise/Act as Ind, UE Funct Exercise/Act Treatment Duration: Apr 09, 2019 Frequency: At least 5 of 7 days/Wk (IRF) Estimated Hrs Per Day: 1.5 hours per day Agreement: Yes Rehab Potential: Good Time/GCodes Start Time: 10:45 Stop Time: 12:00 Total Time Billed (hr/min): 75 Billed Treatment Time 1, ADL X5 ZACHERY SULLIVAN OT Mar 31, 2019 12:52
--- NOTE | 2019-03-31 16:11 | Physical Therapy Daily Note ---
PT Daily Note-Current Subjective Pt sitting at EOB with Sp present upon arrival. Pt agrees to PT. Pain Location: No Pain Reported Mental Status Patient Orientation: Person, Place, Time, Situation Attachments: Other-See Comments (Lumbar Back Brace) Transfers SCALE: Activities may be completed with or without assistive devices. 7-Gmrrrmvopo-rrtlukw completes the activity by him/herself with no assistance from a helper. 5-Set-up or Clean-up Assistance-helper sets up or cleans up; patient completes activity. [place] assists only prior to or following the activity. 4-Supervision or Touching Assistance-helper provides verbal cues and/or touching/steadying and/or contact guard assistance as patient completes activity . Assistance may be provided throughout the activity or intermittently. 3-Partial/Moderate Assistance-helper does LESS THAN HALF the effort. [place] lifts, holds or supports trunk or limbs, but provides less than half the effort. 2-Substantial/Maximal Assistance-helper does MORE THAN HALF the effort. [place] lifts or holds trunk or limbs and provides more than half the effort. 4-Ihpkblyab-wpxtwx does ALL the effort. Patient does none of the effort to complete the activity. Or, the assistance of 2 or more helpers is required for the patient to complete the activity. If activity was not attempted, code reason: 7-Patient Refused. 9-Not Applicable-not attempted and the patient did not perform the activity before the current illness, exacerbation or injury. 10-Not Attempted due to Environmental Limitations-(lack of equipment, weather restraints, etc.). 88-Not Attempted due to Medical Conditions or Safety Concerns. Sit to Stand (QC): 5 Car Transfer (QC): 5 Weight Bearing Right Lower Extremity: Right Full Weight Bearing Left Lower Extremity: Left Full Weight Bearing Gait Training Does the Patient Walk?: Yes Gait: 5 Distance: 250' Walk 10 feet (QC): 5 Walk 50 ft with 2 Turns(QC): 5 Walk 150 ft (QC): 5 Gait Persons Needed: 1 Gait Assistive Device: FWW Wheelchair Training Does the Pt Use a Wheelchair?: No Treatments Pt applies back brace. Pt then transfers to standing before ambulating in hallway. Pt completes car transfer then ambulates again in Therapy Commons. Pt returns to room and rests at EOB. Pt has all needs met, call light in hand. Assessment Current Status: Good Progress Pt was better focused in afternoon Rx. SHIPPING PROCESSOR gave instruction to Sp on what PT watches for transfers and ambulation safety. PT Short Term Goals Short Term Goals Time Frame: Mar 30, 2019 Gait Distance Comment: 150 mod (I) Gait Assistive Device: FWW PT Forming Process Line Worker Goals Residential Goals PT Residential Goals Time Frame: Apr 09, 2019 Sit to Lying (QC): 6 Lying-Sitting on Side/Bed(QC): 6 Sit to Stand (QC): 6 Roll Left to Right (QC): 6 Chair/Drm-lo-Xglbj Xfer(QC): 6 Car Transfer (QC): 5 Does the Patient Walk: Yes Distance: 150 Walk 10 feet (QC): 6 Walk 10ft-Uneven Surface(QC): 6 Walk 50ft with 2 Turns (QC): 6 Walk 150 ft (QC): 6 Gait Level of Assist: 6 Gait Assistive Device: FWW Does the Pt use WC or Scooter?: No 1 Step (curb) (QC): 5 4 Steps (QC): 5 12 Steps (QC): 4 Stairs Level Of Assist: 5 Picking up an Object (QC): 4 PT Plan Problem List Problem List: Activity Tolerance Treatment/Plan Treatment Plan: Continue Plan of Care Treatment Plan: Bed Mobility, Education, Functional Activity [place], Functional Strength, Group Therapy, Gait, Safety, Therapeutic Exercise, Transfers Treatment Duration: Apr 09, 2019 Frequency: At least 5 of 7 days/Wk (IRF) Estimated Hrs Per Day: 1.5 hours per day Patient and/or Family Agrees t: Yes Safety Risks/Education Patient Education: Gait Training, Transfer Techniques, Correct Positioning, Safety Issues Teaching Recipient: Patient, Significant Other Teaching Methods: Discussion Response to Teaching: Verbalize Understanding Time/GCodes Time In: 1400 Time Out: 1430 Total Billed Treatment Time: 30 Total Billed Treatment 1, GT (20m) & FA (10m) STEPHAN SUN PTA Mar 31, 2019 16:11
[2019-03-31] MEDS: TAMSULOSIN 0.4 MG (FLOMAX) CAP PO SCH (18:07)
[2019-03-31 18:45] VITALS: BP 149/90
[2019-03-31] MEDS: GABAPENTIN 100 MG (NEURONTIN) CAP PO SCH (21:06)
[2019-03-31] MEDS: NIACIN 500 MG TABLET PO SCH (21:06)
[2019-03-31] MEDS: TOLTERODINE LA 4 MG (DETROL) CAP PO SCH (21:06)
[2019-03-31] MEDS: eZETimibe 10 MG (ZETIA) TABLET PO SCH (21:06)
[2019-03-31] MEDS: TERAZOSIN 2 MG (HYTRIN) CAP PO SCH (21:08)
[2019-04-01 05:32] VITALS: BP 129/80
[2019-04-01] MEDS: metFORMIN 500 MG (GLUCOPHAGE) TAB PO SCH ×2 (06:44→16:56)
[2019-04-01] MEDS: glipiZIDE 5 MG (GLUCOTROL) TAB PO SCH (06:44)
[2019-04-01] MEDS: TROSPIUM 20 MG (SANCTURA) TAB PO SCH ×2 (06:46→16:56)
[2019-04-01] MEDS: HYDROcodone/APAP 10 MG/325 MG (LORTAB) TAB PO PRN ×3 (06:55→21:01)
--- NOTE | 2019-04-01 09:12 | PM&R Progress Note ---
Subjective HPI/CC On Admission Date Seen by Provider: Apr 01, 2019 Time Seen by Provider: 09:15 Chief complaint: Debility following lumbar spine surgery with myelopathy History of present illness: This is a 74-year-old white male clinic patient of Dr. Dougherty who has a past medical history of hypertension, hyperlipidemia, BPH managed by urology Dr. Woods and transition ischemic attacks with subsequent presumed vascular dementia managed by neurology at [facility] who presents following an uncomplicated lumbar spine surgery but having a slow recovery in need of intensive rehabilitation prior to going home with his . He is having quite a bit of poor recall did not recall having surgery but he does remember talking to me for 2 days over at [place] [facility] where I was consulted. He was having urinary retention shortly after surgery so I did go ahead and recheck out to his urologist who gave the nurse orders for post void residual bladder scanning. He has not had a bowel movement since before surgery. His is very aware of the fact that dementia will preclude a fast recovery but he is in the midst of evaluation from PT and OT in order to regain as much function as quickly as possible. He denies any current pain. I do review his home medication and my consult report. Subjective/Events-last exam Discharge is planned on Thursday since his can be there. Forgets his walker at times. Seems confused at times especially at night but that is easily managed and he can be redirected Overall prognosis really depends on the dementia issue. Checked meds and labs Reviewed therapy notes Conferred with centrifugal wax molder of Systems Musculoskeletal: back pain Neurological: Confusion Objective Exam Vital Signs Vital Signs Date Time Temp Pulse Resp B/P (MAP) Pulse Ox O2 Delivery O2 Flow Rate FiO2 04/01/19 05:32 36.6 106 22 129/80 (96) 93 Room Air Capillary Refill : Less Than 3 Seconds General Appearance: No Apparent Distress, WD/WN, Chronically ill, Thin, Other (frail) HEENT: PERRL/EOMI, Normal ENT Inspection, Pharynx Normal, Moist Mucous Membranes Neck: Full Range of Motion, Normal Inspection, Non Tender, Supple Respiratory: Chest Non Tender, Lungs Clear, Normal Breath Sounds, No Accessory Muscle Use, No Respiratory Distress Cardiovascular: Regular Rate, Rhythm, No Edema, No Gallop, No JVD, No Murmur Gastrointestinal: Normal Bowel Sounds, No Organomegaly, No Pulsatile Mass, Non Tender, Soft Back: Decreased Range of Motion, Muscle Spasm, Vertebral Tenderness Extremity: Normal Capillary Refill, Normal Inspection, Normal Range of Motion, Non Tender, No Calf Tenderness, No Pedal Edema Neurologic/Psychiatric: Alert, No Motor/Sensory Deficits, network security engineer II-XII Norm as Tested, Depressed Affect, Other (poor memory recall) Skin: Normal Color, Warm/Dry Lymphatic: No Adenopathy Results/Procedures Lab Patient resulted labs reviewed. FIM Transfers Therapy Code Descriptions/Definitions Functional [place] Measure: 0=Not Assessed/NA 4=Minimal Assistance 1=Total Assistance 5=Supervision or Setup 2=Maximal Assistance 6=Modified [place] 3=Moderate Assistance 7=Complete IndependenceSCALE: Activities may be completed with or without assistive devices. 5-Fumviuahaa-cifoyjm completes the activity by him/herself with no assistance from a helper. 5-Set-up or Clean-up Assistance-helper sets up or cleans up; patient completes activity. [place] assists only prior to or following the activity. 4-Supervision or Touching Assistance-helper provides verbal cues and/or touching/steadying and/or contact guard assistance as patient completes a ctivity. Assistance may be provided throughout the activity or intermittently. 3-Partial/Moderate Assistance-helper does LESS THAN HALF the effort. [place] lifts, holds or supports trunk or limbs, but provides less than half the effort. 2-Substantial/Maximal Assistance-helper does MORE THAN HALF the effort. [place] lifts or holds trunk or limbs and provides more than half the effort. 2-Minvrezxr-hfpvbl does ALL the effort. Patient does none of the effort to complete the activity. Or, the assistance of 2 or more helpers is required for the patient to complete the activity. If activity was not attempted, code reason: 7-Patient Refused. 9-Not Applicable-not attempted and the patient did not perform the activity before the current illness, exacerbation or injury. 10-Not Attempted due to Environmental Limitations-(lack of equipment, weather restraints, etc.). 88-Not Attempted due to Medical Conditions or Safety Concerns. Roll Left to Right (QC): 4 Sit to Lying (QC): 3 ([place] for log roll to get LE into bed) Sit to Stand (QC): 5 Chair/Wzf-ng-Cfyul Xfer(QC): 5 Car Transfer (QC): 5 Gait Training Does the Patient Walk?: Yes Gait (FIM): 5 Distance (FIM): 3=150 ft Distance: 250' Walk 10 feet (QC): 5 Walk 50 ft with 2 Turns(QC): 5 Walk 150 ft (QC): 5 Walking 10ft/uneven surface-QC: 4 Gait Persons Needed: 1 Gait Assistive Device: FWW Wheelchair Training Does the Pt Use a Wheelchair?: No Stair Training Stair Training: Handrails/: 2 handrails #of Steps: 4 1 Step (curb) (QC): 5 4 Steps (QC): 5 12 Steps (QC): 88 Stairs: Pattern: Step to Level of Assist: 5 Balance Picking up an Object (QC): 88 ADL-Treatment Eating (QC): 6 (Pt demonstrates ability to open containers/packages by self and use regular utensils to eat.) Oral Hygiene (QC): 5 (Pt reported that he brushed his teeth earlier this morning with set up and did not want to do it again.) Bathing Location: L Arm, R Arm, L Upper Leg, R Upper Leg, L Lower Leg (including foot) (utilized long handled sponge to clean his feet.), R Lower Leg (including foot) (utilized long handled sponge to clean his feet), Chest, Abdomen, Buttocks, Perineal Area Shower/Bathe Self (QC): 4 (Pt declined shower but did sponge bathe at sink with supervision seated in chair.) Upper Body Dressing (QC): 5 (Pt completed UE dressing with set up.) Lower Body Dressing (QC): 4 (Pt required supervision and cues to remember to use sock aid and how to manipulate socks correctly. Pt. able to don brief and pants with no difficulty.) On/Off Footwear (QC): 1 Toileting Hygiene (QC): 7 Toilet Transfer (QC): 7 Assessment/Plan Assessment and Plan Assess & Plan/Chief Complaint Assessment: Status post uncomplicated lumbar spine surgery with myelopathy with slow recovery Dementia TIA history Smoker Hypertension Hyperlipidemia Chronic constipation BPH New urinary incontinence Diabetes mellitus Plan: Appreciate urology consultation Inpatient rehabilitation protocol Pain control Monitor blood sugar Check labs prn Bowel regimen to maintain DC Sat (1) Lumbar myelopathy (2) Dementia (3) Hx TIA/stroke w/o resid (4) Smoker (5) Hypertension (6) Hyperlipidemia (7) Diabetes mellitus (8) BPH (benign prostatic hyperplasia) (9) Urinary incontinence (10) Constipation (11) Frailty LENNY CAVANAUGH DO Apr 01, 2019 09:12
[2019-04-01] MEDS ORDERED: SENN-20 PO (09:14)
[2019-04-01] MEDS ORDERED: TOLTA4 PO (09:14)
[2019-04-01] MEDS ORDERED: HYDR-3820 PO (09:14)
[2019-04-01] MEDS ORDERED: TROSPIUM CHLORIDE PO (09:14)
[2019-04-01] MEDS ORDERED: BACL10TA PO (09:14)
[2019-04-01] MEDS: LORATADINE (CLARITIN) 10 MG TAB PO SCH (09:15)
[2019-04-01] MEDS: ASPIRIN E.C. 325 MG (ECOTRIN) TABLET PO SCH (09:15)
[2019-04-01] MEDS: LOSARTAN 100 MG (COZAAR) TABLET PO SCH (09:15)
[2019-04-01] MEDS: amLODIPine 5 MG (NORVASC) TAB PO SCH (09:15)
--- NOTE | 2019-04-01 09:15 | D/C HH Face to Face Order ---
D/C Face to Face Orders Reconcile Patient Problems Problems Reviewed?: Yes Instructions for Patient Home Health Patient Instructions/FollowUp: Dr Dougherty in 1 week Physician to follow Patient: DR Dougherty Discharge Diet for Home: ADA Diet Patient Problems: Back surgery DM Dementia Goals for Patient: Return to independent ADL's Patient Data-Allergies,Ht & Wt Patient Allergies: Coded Allergies: No Allergy Information Available (Unverified , 03/26/19) Home Health Need/Face to Face Date of Face to Face: Apr 01, 2019 Clinical Findings: Generalized weakness and fatigue, Muscle weakness, Unsteady gait I have seen Pt rhrh-ka-wanr: Yes Discharged To: Home Diagnosis/Conditions: Back surgery DM Dementia Patient is Homebound due to: CognItive deficits, [place] fall risk due to ins tabilty, Muscle weakness, Pain w/ambulation Homebound Status Due to the above stated illness, injury or surgical procedure (medical condition or diagnosis) and associated clinical findings, the patient is homebound because of his/her inability to leave home except with aid of a supportive device and/or person AND leaving the home requires a considerable and taxing effort or is medically contraindicated. Pt req the following assistanc: Walker Home Health Nursing Orders Home Health Services Order: Night Time Babysitter-Evaluate & Treat, Card Assembler apy-Evaluate & Treat Certify Stmt I certify that this patient is under my care and that I, a nurse practitioner or a physician; a lpn medical assistant working with me, had a face to face encounter that - meets the physician face to face encounter requirements with this patient as dated. LENNY CAVANAUGH DO Apr 01, 2019 09:15
--- NOTE | 2019-04-01 09:20 | Occupational Ther Daily Note ---
OT Current Status-Daily Note Subjective Pt reports that he slept sound and shower would wake him up. No c/o of pain. Appearance Pt seated at the EOB when OT walked in the room, breakfast tray in front of him. Pt agrees to therapy. Mental Status/Objective Patient Orientation: Person, Place, Time, Situation ADL-Treatment Therapy Code Descriptions/Definitions Functional [place] Measure: 0=Not Assessed/NA 4=Minimal Assistance 1=Total Assistance 5=Supervision or Setup 2=Maximal Assistance 6=Modified [place] 3=Moderate Assistance 7=Complete IndependenceSCALE: Activities may be completed with or without assistive devices. 1-Sodlrqrhtr-phuectu completes the activity by him/herself with no assistance from a helper. 5-Set-up or Clean-up Assistance-helper sets up or cleans up; patient completes activity. [place] assists only prior to or following the activity. 4-Supervision or Touching Assistance-helper provides verbal cues and/or to uching/steadying and/or contact guard assistance as patient completes activity. Assistance may be provided throughout the activity or intermittently. 3-Partial/Moderate Assistance-helper does LESS THAN HALF the effort. [place] lifts, holds or supports trunk or limbs, but provides less than half the effort. 2-Substantial/Maximal Assistance-helper does MORE THAN HALF the effort. [place] lifts or holds trunk or limbs and provides more than half the effort. 3-Lefjrhekb-ggclob does ALL the effort. Patient does none of the effort to complete the activity. Or, the assistance of 2 or more helpers is required for the patient to complete the activity. If activity was not attempted, code reason: 7-Patient Refused. 9-Not Applicable-not attempted and the patient did not perform the activity before the current illness, exacerbation or injury. 10-Not Attempted due to Environmental Limitations-(lack of equipment, weather restraints, etc.). 88-Not Attempted due to Medical Conditions or Safety Concerns. Eating (QC): 6 (Patient completed breakfast seated and the EOB.) Bathing Location: L Arm, R Arm, L Upper Leg, R Upper Leg, L Lower Leg (including foot) (used long handle sponge), R Lower Leg (including foot) (used long handle sponge), Chest, Abdomen, Buttocks, Perineal Area Shower/Bathe Self (QC): 6 (Pt completed shower independently. Pt used grab bar to stand to clean collin area and buttocks.) Upper Body Dressing (QC): 5 ( Pt required set up to complete upper body dressing.) Lower Body Dressing (QC): 4 (Pt utilize adaptive equipment to complete lower body dressing but required supervision when standing to pull pant and brief up. Pt required cues to sequence steps when donning socks.) Toileting Hygiene (QC): 7 Toilet Transfer (QC): 7 Other Treatment Pt ambulated to the bathroom using walker and required supervision for safety. Pt declined to use the bathroom stated that he don't need to use at that time. Pt completed his shower seated on the shower bench and used grab bars to stand to dry. Pt donned brace independently. Pt demonstrated ability to complete shower independently. Pt did not complete oral hygiene due to time. Pt required extended time to complete the task. Pt ambulated back to his chair with walker and supervision. Pt seated in his chair alarm, call light in reach. All needs met. Education OT Patient Education: Instructions don/doff splint/brace, Progress toward Goal/Update tx plan, Purpose of tx/functional activities, Use of adapted equipment Teaching Recipient: Patient Teaching Methods: Demonstration, Discussion Response to Teaching: Verbalize Understanding, Return Demonstration, Reinforcement Needed OT Short Term Goals Short Term Goals Time Frame: Apr 02, 2019 Eating(FIM): 5 Grooming(FIM): 4 Bathing(FIM): 4 Upper Body Dressing(FIM): 4 Lower Body Dressing(FIM): 4 Toileting(FIM): 4 Transfers (B,C,W/C) (FIM): 4 Toilet/Commode Transfer(FIM): 4 Shower Transfer(FIM): 4 Additional Short Term Goals: 1-Demonstrate ADL Tasks, 2-Verbalize Understanding, 3-ImproveStrength/Edmund 1=Demonstrate adherence to instructed precautions during ADL tasks. 2=Patient will verbalize/demonstrate understanding of assistive devices /modifications for ADL. 3=Patient will improve strength/tolerance for activity to enable patient to perform ADL's. OT Skilled Nursing Goals Dean Goals Time Frame: Apr 09, 2019 Eating (QC): 6 Oral Hygiene (QC): 6 Shower/Bathe Self (QC): 4 Upper Body Dressing (QC): 5 Lower Body Dressing (QC): 5 On/Off Footwear (QC): 5 Toileting Hygiene (QC): 6 Toilet/Commode Transfer (QC): 6 Additional Goals: 1-Demonstrate ADL Tasks, 2-Verbalize Understanding, 3- ImproveStrength/Edmund 1=Demonstrate adherence to instructed precautions during ADL tasks. 2=Patient will verbalize/demonstrate understanding of assistive devices/modifications for ADL. 3=Patient will improve strength/tolerance for activity to enable patient to perform ADL's. OT Education/Plan Problem List/Assessment Assessment: Decreased Activ Tolerance, Impaired I ADL's, Impaired Self-Care Skills Discharge Recommendations Plan/Recommendations: Continue POC Therapy Discharge Recommendati: Post Acute OT Equpiment Recommendations-D/C: Hip Kit Treatment Plan/Plan of Care Treatment,Training & Education: Yes Patient would benefit from OT for education, treatment and training to promote independence in ADL's, mobility, safety and/or upper extremity function for ADL's. Plan of Care: ADL Retraining, Caregiver Training, Cognitive Retraining, Functional Mobility, Group Exercise/Act as Ind, UE Funct Exercise/Act Treatment Duration: Apr 09, 2019 Frequency: At least 5 of 7 days/Wk (IRF) Estimated Hrs Per Day: 1.5 hours per day Agreement: Yes Rehab Potential: Good Time/GCodes Start Time: 08:00 Stop Time: 09:00 Total Time Billed (hr/min): 60 Billed Treatment Time 1, ADL X 4 ROSANNE HUNT Apr 01, 2019 09:20
[2019-04-01] MEDS: SENNA W/DOCUSATE (SENOKOT S) TABLET PO SCH ×2 (10:01→21:02)
[2019-04-01] MEDS: POLYETHYLENE GLYCOL 17 GM (MIRALAX) PACK PO SCH ×2 (10:12→21:02)
--- NOTE | 2019-04-01 10:43 | Speech Therapy Daily Note ---
Speech Daily Progress Note Subjective Date Seen by Provider: Apr 01, 2019 Time Seen by Provider: 00:30 Patient was sitting upright in chair in room and was alert. He was cooperative and participated actively in today's session. Objective Patient will be discharging to return home with tomorrow. Session targeted problem solving and safety upon return to home. Patient independently recalled personal history and information as well as independently recalled room safety. Patient was 90% accurate with problem solving functional tasks in the home setting. He verbalized his will be a support to him with activities of daily living. Assessment Assessment Current Status: Good Progress Treatment Plan Continue Plan of Care Speech Short Term Goals Short Term Goals Short Term Goals 1) Patient will complete memory tasks related to his daily needs with 90% or greater with 10% cues. 2) Patient will complete problem solving tasks related to his daily needs with 90% or greater with 10% cues. 3) Patient will complete safety awareness tasks related to his daily needs with 90% or greater with 10% cues. Speech Supervisor [employer] Making Machine Goals Assisted Goals Patient will improve his cognitive-communication level so that he may return home safely. Speech-Plan Patient/Family Goals Patient/Family Goals: Return home with spouse Treatment Plan Speech Therapy Treatment Plan: Continue Plan of Care Patient was cooperative and demonstrated problem-solving skills needed for daily tasks with minimal cues Treatment Duration: Apr 01, 2019 Frequency: 5 times per week Estimated Hrs Per Day: .5 hour per day Rehab Potential: Good Barriers to Learning: cognition Pt/Family Agrees to Plan: Yes Safety Risks/Education Teaching Recipient: Patient Teaching Methods: Discussion Response to Teaching: Verbalize Understanding Education Topics Provided: room safety and safety upon returning home Time Speech Therapy Time In: 09:30 Speech Therapy Time Out: 10:00 Total Billed Time: 30 Billed Treatment Time 1, RIANNAVAN Nancy JOSE RAFAEL SMALL Apr 01, 2019 10:43
--- NOTE | 2019-04-01 11:56 | Physical Therapy Daily Note ---
PT Daily Note-Current Subjective Pt. agrees to Rx. States he feels so much better and has made good progress Pain Location: No Pain Reported Mental Status Patient Orientation: Person, Place, Time, Situation Attachments: Other-See Comments (aspen back brace) Transfers SCALE: Activities may be completed with or without assistive devices. 5-Axjatdibhx-jumjaqu completes the activity by him/herself with no assistance from a helper. 5-Set-up or Clean-up Assistance-helper sets up or cleans up; patient completes activity. [place] assists only prior to or following the activity. 4-Supervision or Touching Assistance-helper provides verbal cues and/or touching/steadying and/or contact guard assistance as patient completes activity. Assistance may be provided throughout the activity or intermittently. 3-Partial/Moderate Assistance-helper does LESS THAN HALF the effort. [place] lifts, holds or supports trunk or limbs, but provides less than half the effort. 2-Substantial/Maximal Assistance-helper does MORE THAN HALF the effort. [place] lifts or holds trunk or limbs and provides more than half the effort. 1-Gxqhqotnk-trdaae does ALL the effort. Patient does none of the effort to complete the activity. Or, the assistance of 2 or more helpers is required for the patient to complete the activity. If activity was not attempted, code reason: 7-Patient Refused. 9-Not Applicable-not attempted and the patient did not perform the activity before the current illness, exacerbation or injury. 10-Not Attempted due to Environmental Limitations-(lack of equipment, weather restraints, etc.). 88-Not Attempted due to Medical Conditions or Safety Concerns. Transfers (B, C, W/C): 6 Roll Left to Right (QC): 6 Sit to Lying (QC): 6 Sit to Stand (QC): 6 Chair/Uft-lj-Iaptx Xfer(QC): 6 Bed to/from Chair: 6 Car Transfer (QC): 6 Weight Bearing Right Lower Extremity: Right Full Weight Bearing Left Lower Extremity: Left Full Weight Bearing Gait Training Does the Patient Walk?: Yes Gait: 6 Walk 10 feet (QC): 6 Walk 50 ft with 2 Turns(QC): 6 Walk 150 ft (QC): 6 Walking 10ft/uneven surface-QC: 6 Gait Persons Needed: 0 Gait Assistive Device: FWW slow, careful, needs directed as to where to go Stair Training Stair Training: Handrails/: 1 handrail #of Steps: 12 1 Step (curb) (QC): 5 4 Steps (QC): 5 12 Steps (QC): 5 Stairs: Pattern: Reciprocal Level of Assist: 5 Balance Picking up an Object (QC): 88 Exercises Supine Ex: Bridging, Ankle pumps, Quad Set, Rolling, Glut sets, Heel Slides, Short Arc Quads, Scooting, Hip abd/add Supine Reps: 20 NuStep Minutes: 10 NuStep Workload: 2 Treatments pt. observed and SBA for face, hands, teeth and hair, no LOB, managing well, pt. donned and doffed aspen brace indep Assessment Current Status: Good Progress PT Short Term Goals Short Term Goals Time Frame: Mar 30, 2019 Gait Distance Comment: 150 mod (I) Gait Assistive Device: FWW PT Fci Goals Fci Goals PT Metal Control Worker Goals Time Frame: Apr 09, 2019 Sit to Lying (QC): 6 Lying-Sitting on Side/Bed(QC): 6 Sit to Stand (QC): 6 Roll Left to Right (QC): 6 Chair/Wui-bk-Tefpt Xfer(QC): 6 Car Transfer (QC): 5 Does the Patient Walk: Yes Distance: 150 Walk 10 feet (QC): 6 Walk 10ft-Uneven Surface(QC): 6 Walk 50ft with 2 Turns (QC): 6 Walk 150 ft (QC): 6 Gait Level of Assist: 6 Gait Assistive Device: FWW Does the Pt use WC or Scooter?: No 1 Step (curb) (QC): 5 4 Steps (QC): 5 12 Steps (QC): 4 Stairs Level Of Assist: 5 Picking up an Object (QC): 4 PT Plan Treatment/Plan Treatment Plan: Continue Plan of Care Treatment Plan: Bed Mobility, Education, Functional Activity [place], Functional Strength, Group Therapy, Gait, Safety, Therapeutic Exercise, Transfers Treatment Duration: Apr 09, 2019 Frequency: At least 5 of 7 days/Wk (IRF) Estimated Hrs Per Day: 1.5 hours per day Patient and/or Family Agrees t: Yes Safety Risks/Education Patient Education: Gait Training, Transfer Techniques, Steps, Correct Positioning, Disease Process, Safety Issues Teaching Recipient: Patient Teaching Methods: Demonstration, Discussion Response to Teaching: Verbalize Understanding, Return Demonstration, Reinforcement Needed Time/GCodes Time In: 1100 Time Out: 1200 Total Billed Treatment Time: 60 Total Billed Treatment 1,GT15m,EX15m,FA30m STEFANIE STRATTON BUCKET CHUCKER Apr 01, 2019 11:56
--- NOTE | 2019-04-01 14:42 | Therapy Group Daily Note ---
Therapy Daily Group Note Patient Education Topic Other List Below (rehab orientation and requirements, gait and device education) Exercises LE Seated Exercise, UE Exercise Session Ratio (pt:therapist): 3:1 Goal of Session: Education on ARU Expectations, UE/LE Strengthing, Other (list) (git and device understanding ) Goal Met for this Session: Yes Pt Benefit of Group: Contributions to Others, Increased Functional Safety, Increased Functional Strength, Recognition of Peers, Socialization Other/Notes Pt participated in group PT OT session this date. Pt ambulated to from with SBA to CGA. Pts were social and shared names and hometowns as well as a joke they may recall. Pts. all participated in group U&L extremity exercises and were educated with demonstration of proper gait patterns, gait dysfunction as well as various devices . Pt. back to room after group in chair, light close by. Start Time: 13:00 Stop Time: 14:15 Total Billed Treatment Time: 75 Total Billed Treatment 1,GRP STEFANIE STRATTON PTA Apr 01, 2019 14:42 ROSANNE HUNT Apr 01, 2019 14:58
--- NOTE | 2019-04-01 15:30 | NUR ---
Patient napping; met with spouse to further discuss tomorrow's discharge. Patient's spouse states they have chosen not to proceed with home health care. Spouse states she feels well equipped to assist as this is not the patient's first procedure. Spouse also states she has taken off an additional two weeks from work. No DME needs, at this time.
[2019-04-01] MEDS: TAMSULOSIN 0.4 MG (FLOMAX) CAP PO SCH (17:40)
[2019-04-01 18:21] VITALS: BP 136/88
--- NOTE | 2019-04-01 19:15 | NUR ---
bedside report recived from HERIBERTO QUINN, assume care of pt
[2019-04-01] MEDS: NIACIN 500 MG TABLET PO SCH (21:00)
[2019-04-01] MEDS: TOLTERODINE LA 4 MG (DETROL) CAP PO SCH (21:00)
[2019-04-01] MEDS: eZETimibe 10 MG (ZETIA) TABLET PO SCH (21:01)
[2019-04-01] MEDS: GABAPENTIN 100 MG (NEURONTIN) CAP PO SCH (21:01)
[2019-04-01] MEDS: TERAZOSIN 2 MG (HYTRIN) CAP PO SCH (21:01)
--- NOTE | 2019-04-01 21:02 | NUR ---
refused Senokot & miralax c/o back pain level 6/10 on numeric scale, lortab 10 1 tab given
--- NOTE | 2019-04-01 21:40 | NUR ---
resting quietly in bed, pain level 0/10 on flacc scale
--- NOTE | 2019-04-01 22:15 | NUR ---
side rails up x4, bed alarm on
[2019-04-02 05:53] VITALS: BP 120/75
[2019-04-02] MEDS: TROSPIUM 20 MG (SANCTURA) TAB PO SCH (06:31)
[2019-04-02] MEDS: glipiZIDE 5 MG (GLUCOTROL) TAB PO SCH (06:31)
[2019-04-02] MEDS: metFORMIN 500 MG (GLUCOPHAGE) TAB PO SCH (06:31)
[2019-04-02] MEDS: HYDROcodone/APAP 10 MG/325 MG (LORTAB) TAB PO PRN ×2 (06:35→10:12)
--- NOTE | 2019-04-02 06:35 | NUR ---
c/o back pain level 5/10 on numeric scale, Lortab 10/325 1 tab given
--- NOTE | 2019-04-02 07:11 | NUR ---
pain level 3/10 on numeric scale
--- NOTE | 2019-04-02 07:23 | NUR ---
bedside report given to ANU QUINN
--- NOTE | 2019-04-02 08:40 | Discharge Summary ---
Diagnosis/Chief Complaint Date of Admission Mar 26, 2019 at 10:00 Date of Discharge Discharge Date: Apr 02, 2019 Discharge Diagnosis Assessment: Status post uncomplicated lumbar spine surgery with myelopathy with slow recovery Dementia TIA history Smoker Hypertension Hyperlipidemia Chronic constipation BPH New urinary incontinence Diabetes mellitus Plan: Appreciate urology consultation Inpatient rehabilitation protocol Pain control Monitor blood sugar Check labs prn Bowel regimen to maintain DC Sat (1) Lumbar myelopathy (2) Dementia (3) Hx TIA/stroke w/o resid (4) Smoker (5) Hypertension (6) Hyperlipidemia (7) Diabetes mellitus (8) BPH (benign prostatic hyperplasia) (9) Urinary incontinence (10) Constipation (11) Frailty Discharge Summary Discharge Physical Examination Allergies: Coded Allergies: No Allergy Information Available (Unverified , 03/26/19) Vitals & I&Os Vital Signs Date Time Temp Pulse Resp B/P (MAP) Pulse Ox O2 Delivery O2 Flow Rate FiO2 04/02/19 10:30 36.8 90 16 120/75 98 Room Air General Appearance: Alert, Oriented X3, Cooperative Respiratory: Clear to Auscultation Cardiovascular: Regular Rate Neuro: Normal Gait, Normal Speech, Strength at 5/5 X4 Ext Psych/Mental Status: Mental Status NL (memory recall poor) Hospital Course Was the Problem List Reviewed?: Yes Hospital course: patient had an uncomplicated hospital course in IRF for 7 days after transferred from [facility] after extensive lumbar spine surgery complicated with dementia precluding a fast recovery and DC home. Pain was managed with pain meds and bowel function regained normalcy after multiple laxatives given. Home meds maintained along with accuchecks and patient participated in all therapy requirements. Overall he was able to regain independent ADL's and ambulation and was able to be DC home with . Labs (last 24 hrs) Laboratory Tests 03/27/19 05:30: White Blood Count 9.0, Red Blood Count 3.90L, Hemoglobin 11.8L, Hematocrit 35L, Mean Corpuscular Volume 89, Mean Corpuscular Hemoglobin 30, Mean Corpuscular Hemoglobin Concent 34, Red Cell Distribution Width 14.2, Platelet Count 266, Mean Platelet Volume 9.0, Neutrophils (%) (Auto) 65, Lymphocytes (%) (Auto) 20, Monocytes (%) (Auto) 14H, Eosinophils (%) (Auto) 0, Basophils (%) (Auto) 0, Neutrophils # (Auto) 5.9, Lymphocytes # (Auto) 1.8, Monocytes # (Auto) 1.3H, Eos inophils # (Auto) 0.0, Basophils # (Auto) 0.0, Sodium Level 136, Potassium Level 3.7, Chloride Level 102, Carbon Dioxide Level 21, Anion Gap 13, Blood Urea Nitrogen 18, Creatinine 1.01, Estimat Glomerular Filtration Rate > 60, BUN/Creatinine Ratio 18, Glucose Level 200H, Calcium Level 9.7, Corrected Calcium 10.1, Total Bilirubin 1.1H, Aspartate Amino Transf (AST/SGOT) 17, Alanine Aminotransferase (ALT/SGPT) 14, Alkaline Phosphatase 80, Total Protein 6.3L, Albumin 3.5 03/27/19 20:20: Glucometer 178H 03/28/19 04:32: Glucometer 177H 03/28/19 17:00: Glucometer 144H 03/29/19 06:54: Glucometer 197H 03/29/19 15:59: Glucometer 152H 03/30/19 06:47: Glucometer 193H 03/31/19 05:28: Glucometer 196H 03/31/19 17:33: Glucometer 209H 04/01/19 05:15: Glucometer 191H 04/01/19 17:37: Glucometer 166H 04/02/19 06:29: Glucometer 200H Pending Labs Laboratory Tests 03/27/19 05:30: White Blood Count 9.0, Red Blood Count 3.90, Hemoglobin 11.8, Hematocrit 35, Mean Corpuscular Volume 89, Mean Corpuscular Hemoglobin 30, Mean Corpuscular Hemoglobin Concent 34, Red Cell Distribution Width 14.2, Platelet Count 266, Mean Platelet Volume 9.0, Neutrophils (%) (Auto) 65, Lymphocytes (%) (Auto) 20, Monocytes (%) (Auto) 14, Eosinophils (%) (Auto) 0, Basophils (%) (Auto) 0, Neutrophils # (Auto) 5.9, Lymphocytes # (Auto) 1.8, Monocytes # (Auto) 1.3, Eosinophils # (Auto) 0.0, Basophils # (Auto) 0.0, Sodium Level 136, Potassium Level 3.7, Chloride Level 102, Carbon Dioxide Level 21, Anion Gap 13, Blood Urea Nitrogen 18, Creatinine 1.01, Estimat Glomerular Filtration Rate > 60, BUN/Creatinine Ratio 18, Glucose Level 200, Calcium Level 9.7, Corrected Calcium 10.1, Total Bilirubin 1.1, Aspartate Amino Transf (AST/SGOT) 17, Alanine Aminotransferase (ALT/SGPT) 14, Alkaline Phosphatase 80, Total Protein 6.3, Albumin 3.5 03/27/19 20:20: Glucometer 178 03/28/19 04:32: Glucometer 177 03/28/19 17:00: Glucometer 144 03/29/19 06:54: Glucometer 197 03/29/19 15:59: Glucometer 152 03/30/19 06:47: Glucometer 193 03/31/19 05:28: Glucometer 196 03/31/19 17:33: Glucometer 209 04/01/19 05:15: Glucometer 191 04/01/19 17:37: Glucometer 166 04/02/19 06:29: Glucometer 200 Discharge Home Medications: Active Scripts Active [Trospium Chloride] 20 MG Tab 20 Mg PO DAILY@,16 Detrol LA (Tolterodine Tartrate) 4 Mg Cap 4 Mg PO HS Senna-Time S Tablet (Sennosides/Docusate Sodium) 1 Each Tablet 2 Ea PO BID Hydrocodon-Acetaminophn 10-325 (Hydrocodone/Acetaminophen) 1 Each Tablet 1-2 Ea PO Q4H PRN Baclofen 10 Mg Tablet 10 Mg PO Q8HR PRN Reported Vesicare (Solifenacin Succinate) 5 Mg Tablet 5 Mg PO DAILY Flomax (Tamsulosin HCl) 0.4 Mg Cap 0.4 Mg PO DAILY Zetia (Ezetimibe) 10 Mg Tablet 10 Mg PO HS Cetirizine-Pse ER 5-120 mg Tab (Cetirizine HCl/Pseudoephedrine) 1 Each Tab.er.12h 1 Tab PO DAILY Gabapentin 100 Mg Capsule 100 Mg PO HS Aspirin EC (Aspirin) 325 Mg Tablet.dr 325 Mg PO DAILY Excedrin Extra Strength Caplet (Aspirin/Acetaminophen/Caffeine) 1 Each Tablet 1- 2 Tab PO BID PRN Saw [place] 450 mg Capsule (Saw [place] Fruit/Zinc [place]) 1 Each Capsule 2 Cap PO DAILY Complete Multi 50+ Tablet (Multivit-Min/FA/Lycopene/Lut) 1 Each Tablet 1 Tab PO DAILY Niacin 500 mg Capsule (Niacin (Inositol Niacinate)) 500 Mg Capsule 500 Mg PO HS Amlodipine Besylate 5 Mg Tablet 5 Mg PO DAILY Glipizide 5 Mg Tablet 5 Mg PO DAILY Metformin HCl 1,000 Mg Tablet 1,000 Mg PO BID Terazosin HCl 2 Mg Capsule 2 Mg PO HS Losartan Potassium 100 Mg Tablet 100 Mg PO DAILY Alprazolam 0.5 Mg Tablet 0.5 Mg PO HS Instructions to patient/family Please see electronic discharge instructions given to patient. 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
[2019-04-02] MEDS: LORATADINE (CLARITIN) 10 MG TAB PO SCH (10:12)
[2019-04-02] MEDS: LOSARTAN 100 MG (COZAAR) TABLET PO SCH (10:12)
[2019-04-02] MEDS: amLODIPine 5 MG (NORVASC) TAB PO SCH (10:12)
[2019-04-02] MEDS: ASPIRIN E.C. 325 MG (ECOTRIN) TABLET PO SCH (10:12)
--- NOTE | 2019-04-02 10:20 | NUR ---
PT REFUSED FLU VAC AT THIS TIME. STATED " HE HAS A REACTION SOMETIMES. AND I'D RATHER GET IT FROM OUR OWN DOCTOR.
[2019-04-02 10:30] VITALS: BP 120/75
[2019-04-02] MEDS: POLYETHYLENE GLYCOL 17 GM (MIRALAX) PACK PO SCH (10:30)
[2019-04-02] MEDS: SENNA W/DOCUSATE (SENOKOT S) TABLET PO SCH (10:30)
--- NOTE | 2019-04-02 10:30 | NUR ---
YURI MCNAMARA demonstrates understanding of discharge instructions and accurately returns instructions upon questioning. Copy of Post-Discharge Instructions given to PT. YURI MCNAMARA is able to manage continuing needs after discharge. Patients belongings returned to PT. Patient discharged from 231-1 on 04/02/19 at 10:30. YURI MCNAMARA left floor via W/C, accompanied by STAFF AND PER AUTO.
--- NOTE | 2019-04-04 11:00 | Therapy Team Discharge Summary ---
Therapy Discharge Summary Discharge Recommendations Date of Discharge Apr 02, 2019 at 10:30 Occupational Therapy Decreased Activ Tolerance, Impaired I ADL's, Impaired Self-Care Skills Speech-Language Pathology Patient was admitted to the ARU s/p spine surgery. Patient was given the SLUMS which resulted in a moderate level of decreased cognitive function. Patient was discharged to his home on 04/02/2019 with his . He was discharged from [facility] at that time. PT Ortho Assistant Goals Halfway Goals PT Ortho Assistant Goals Time Frame: Apr 09, 2019 Roll Left to Right (QC): 6 Sit to Lying (QC): 6 Lying-Sitting on Side/Bed(QC): 6 Sit to Stand (QC): 6 Chair/Xui-rx-Erivq Xfer(QC): 6 Car Transfer (QC): 5 Does the Patient Walk: Yes Distance: 150 Walk 10 feet (QC): 6 Walk 10ft-Uneven Surface(QC): 6 Walk 50ft with 2 Turns (QC): 6 Walk 150 ft (QC): 6 Gait Level of Assist: 6 Gait Assistive Device: FWW Does the Pt use WC or Scooter?: No 1 Step (curb) (QC): 5 4 Steps (QC): 5 12 Steps (QC): 4 Stairs Level Of Assist: 5 Picking up an Object (QC): 4 OT Ortho Assistant Goals Halfway Goals Time Frame: Apr 09, 2019 Eating (QC): 6 Oral Hygiene (QC): 6 Shower/Bathe Self (QC): 4 Upper Body Dressing (QC): 5 Lower Body Dressing (QC): 5 On/Off Footwear (QC): 5 Toileting Hygiene (QC): 6 Toilet/Commode Transfer (QC): 6 Additional Goals: 1-Demonstrate ADL Tasks, 2-Verbalize Understanding, 3- ImproveStrength/Edmund 1=Demonstrate adherence to instructed precautions during ADL tasks. 2=Patient will verbalize/demonstrate understanding of assistive devices/modifications for ADL. 3=Patient will improve strength/tolerance for activity to enable patient to perform ADL's. Speech Halfway Goals Halfway Goals Patient will improve his cognitive-communication level so that he may return home safely. TUTU LEONARD Apr 04, 2019 11:00
--- NOTE | 2019-04-04 13:24 | Therapy Team Discharge Summary ---
Therapy Discharge Summary Discharge Recommendations Date of Discharge Apr 02, 2019 at 10:30 Therapy D/C Recommendations: Home w/ Family Support, Occupational Therapy Home Care Occupational Therapy Pt. seen at this facility to increase overall strength and independence. Pt. able to bathe with set up, dress UE with set up, and LE with SBA. Pt. has met most goals, with exception of LE dressing. Pt. discharged home with spouse support. Recommend home health OT if needed for continued skill training for independence with daily tasks. 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 Grounds Maintenance Worker Goals PT Prison Goals Time Frame: Apr 09, 2019 Roll Left to Right (QC): 6 Sit to Lying (QC): 6 Lying-Sitting on Side/Bed(QC): 6 Sit to Stand (QC): 6 Chair/Zzh-qr-Pajgw Xfer(QC): 6 Car Transfer (QC): 5 Does the Patient Walk: Yes Distance: 150 Walk 10 feet (QC): 6 Walk 10ft-Uneven Surface(QC): 6 Walk 50ft with 2 Turns (QC): 6 Walk 150 ft (QC): 6 Gait Level of Assist: 6 Gait Assistive Device: FWW Does the Pt use WC or Scooter?: No 1 Step (curb) (QC): 5 4 Steps (QC): 5 12 Steps (QC): 4 Stairs Level Of Assist: 5 Picking up an Object (QC): 4 OT Prison Goals Prison Goals Time Frame: Apr 09, 2019 Eating (QC): 6 (met) Oral Hygiene (QC): 6 (met) Shower/Bathe Self (QC): 4 (met) Upper Body Dressing (QC): 5 (met) Lower Body Dressing (QC): 5 (not met) On/Off Footwear (QC): 5 (not met) Toileting Hygiene (QC): 6 (met) Toilet/Commode Transfer (QC): 6 (met) Additional Goals: 1-Demonstrate ADL Tasks, 2-Verbalize Understanding, 3- ImproveStrength/Edmund 1=Demonstrate adherence to instructed precautions during ADL tasks. 2=Patient will verbalize/demonstrate understanding of assistive devices/modifications for ADL. 3=Patient will improve strength/tolerance for activity to enable patient to perform ADL's. Speech Grounds Maintenance Worker Goals Grounds Maintenance Worker Goals Patient will improve his cognitive-communication level so that he may return ho me safely. ZACHERY SULLIVAN OT Apr 04, 2019 13:24 POS
--- NOTE | 2019-04-04 14:22 | Therapy Team Discharge Summary ---
Therapy Discharge Summary Discharge Recommendations Date of Discharge Apr 02, 2019 at 10:30 Therapy D/C Recommendations: Home w/ Family Support, Occupational Therapy Home Care Physical Therapy This patient transferred to ARU post acute hospital stay for a lumbar surgery. Prior to surgery, pt was mod indep with all functional mobility. Upon admission to ARU, pt required max asssit with bed mobiltiy and CGA with sit to stand transfers; he was able to walk 150 ft with FWW with CGA and went up/down steps with assist. Treatment Has consisted of functional strength and balance training, paired with safety education to improve functional transfers and gait. he has made good progress and achieved all goals to a satisfactory level. He is mod indep with transfers and gait and Set up assist with stairs. Pt to discharge home with tht assist of his . DC PT. Occupational Therapy Decreased Activ Tolerance, Impaired I ADL's, Impaired Self-Care Skills PT Coin Machine Collector Goals Mcc Goals PT Mcc Goals Time Frame: Apr 09, 2019 Roll Left to Right (QC): 6 (met) Sit to Lying (QC): 6 (met) Lying-Sitting on Side/Bed(QC): 6 (met) Sit to Stand (QC): 6 (met) Chair/Byj-hq-Vfyxo Xfer(QC): 6 (met) Car Transfer (QC): 5 Does the Patient Walk: Yes Distance: 150 Walk 10 feet (QC): 6 (met) Walk 10ft-Uneven Surface(QC): 6 (met) Walk 50ft with 2 Turns (QC): 6 (met) Walk 150 ft (QC): 6 (met) Gait Level of Assist: 6 Gait Assistive Device: FWW Does the Pt use WC or Scooter?: No 1 Step (curb) (QC): 5 (met) 4 Steps (QC): 5 (met) 12 Steps (QC): 4 (exceeded; scored a 5) Stairs Level Of Assist: 5 Picking up an Object (QC): 4 OT Coin Machine Collector Goals Mcc Goals Time Frame: Apr 09, 2019 Eating (QC): 6 (met) Oral Hygiene (QC): 6 (met) Shower/Bathe Self (QC): 4 (met) Upper Body Dressing (QC): 5 (met) Lower Body Dressing (QC): 5 (not met) On/Off Footwear (QC): 5 (not met) Toileting Hygiene (QC): 6 (met) Toilet/Commode Transfer (QC): 6 (met) Additional Goals: 1-Demonstrate ADL Tasks, 2-Verbalize Understanding, 3- ImproveStrength/Edmund 1=Demonstrate adherence to instructed precautions during ADL tasks. 2=Patient will verbalize/demonstrate understanding of assistive devices/modifications for ADL. 3=Patient will improve strength/tolerance for activity to enable patient to perform ADL's. Speech Mcc Goals Mcc Goals Patient will improve his cognitive-communication level so that he may return home safely. ROSANNE MATA PT Apr 04, 2019 14:22 POS
== END 2019-04-02 10:30 | disposition home or self-care (01) | DRG 93 ==
PROVIDERS: ADMIT Internal Medicine; ATTEND Internal Medicine
DX: G95.9 Disease of spinal cord, unspecified (principal); Z47.89 Encounter for other orthopedic aftercare; F01.50 Vascular dementia, unspecified severity, without behavioral disturbance, psychotic disturbance, mood disturbance, and anxiety; N40.1 Benign prostatic hyperplasia with lower urinary tract symptoms; N32.81 Overactive bladder; R33.9 Retention of urine, unspecified; R32 Unspecified urinary incontinence; I10 Essential (primary) hypertension; E11.9 Type 2 diabetes mellitus without complications; E78.5 Hyperlipidemia, unspecified; F17.290 Nicotine dependence, other tobacco product, uncomplicated; K59.09 Other constipation; F32.9 Major depressive disorder, single episode, unspecified; Z79.84 Long term (current) use of oral hypoglycemic drugs
CPT/HCPCS: 36415; 80053; 82962; 85025

== ENCOUNTER → 2019-07-12 | Outpatient (CLI) | payer MEDICARE ==
[~2019-07-12] MED LIST: ALPR0.5T7 PO; AMLO5TAB9 PO; ASPI-992 PO; ASPI325T32 PO; BACL10TA PO; CETI1TAB86 PO; EZET10TA17 PO; FA/M1TAB29 PO; GABA-486 PO; GLIP5TAB13 PO; HYDR-3820 PO; LOSA100T57 PO; METF-399 PO; NF-SOLIF5T PO; NIAC1CAP PO; SAW1CAPS8 PO; SENN-20 PO; TERA2CAP4 PO; TMSL.4C PO; TOLTA4 PO; TROSPIUM CHLORIDE PO
--- NOTE | 2019-07-12 16:28 | Diagnostic Imaging Report ---
INDICATION: Shoulder pain. COMPARISON: None. FINDINGS: Three views of the right shoulder were obtained. There is no fracture, dislocation, or other acute bony abnormality identified. The soft tissues appear unremarkable. No radiopaque foreign bodies identified. The visualized portions of the right lung are clear. IMPRESSION: No acute fractures or dislocations of the right shoulder. Dictated by: Dictated on workstation # [id number]
== END ==
LOC: RAD FS 15:25
PROVIDERS: ATTEND Nurse Practitioner
DX: M25.511 Pain in right shoulder (principal)
CPT/HCPCS: 73030

== ENCOUNTER → 2020-01-30 | Outpatient (CLI) | payer MEDICARE ==
[~2020-01-30] MED LIST changes: +ACHYD1T PO; -HYDR-3820 PO
--- NOTE | 2020-01-30 16:04 | Diagnostic Imaging Report ---
INDICATION: Left hip pain for one week. TIME OF EXAM: 03:32 p.m. FINDINGS: Two views of the left hip show normal femoroacetabular alignment. Joint space is well maintained. Femoral head and neck are intact. No fractures are seen. IMPRESSION: No acute bony abnormality is detected. Dictated by: Dictated on workstation # [id number]
== END ==
LOC: RAD FS 15:11
PROVIDERS: ATTEND Nurse Practitioner
DX: M25.552 Pain in left hip (principal)
CPT/HCPCS: 73502

== ENCOUNTER → 2021-04-11 | Outpatient (CLI) | payer MEDICARE ==
[~2021-04-11] MED LIST changes: +AMLO-250 PO; -AMLO5TAB9 PO
--- NOTE | 2021-04-11 16:06 | Diagnostic Imaging Report ---
PROCEDURE: CT abdomen and pelvis without contrast. TECHNIQUE: Multiple contiguous axial images were obtained through the abdomen and pelvis without the use of intravenous contrast. Auto Exposure Controls were utilized during the CT exam to meet ALARA standards for radiation dose reduction. INDICATION: Hematuria for two days. COMPARISON: No prior studies are available for comparison. FINDINGS: Lung bases are clear. The liver and gallbladder are unremarkable. There is no biliary ductal dilatation. Pancreas and spleen are unremarkable. No adrenal mass is detected. There are renal vascular calcifications present. No definite nephrolithiasis is seen. There is no hydronephrosis. No bladder calculi are seen. However, there is bladder wall thickening present. Prostate is enlarged and contains central calcifications. Aorta is aneurysmal in the infrarenal portion measuring 3.3 cm in AP diameter. This terminates above the bifurcation. There is some aneurysmal dilatation of the left common iliac artery measuring 2.6 cm. Bowel loops are normal in caliber. There is diverticulosis of the sigmoid and descending colon but no evidence of acute diverticulitis. Moderate stool in the colon is noted. There is no free fluid or fluid collection. There is lower lumbar spine instrumentation. IMPRESSION: 1. No urinary tract calculi or obstruction. There is generalized bladder wall thickening which in part could be owing to incomplete distention, but cystitis or other etiologies cannot be entirely excluded. Cystoscopy may be useful for further evaluation. 2. Prostatomegaly. 3. Uncomplicated diverticulosis. 4. Infrarenal abdominal aortic aneurysm. 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 Dictated by: Dictated on workstation # [id number]
== END ==
LOC: RAD FS 13:32
PROVIDERS: ATTEND Urology
DX: N40.0 Benign prostatic hyperplasia without lower urinary tract symptoms (principal); I71.4 Abdominal aortic aneurysm, without rupture; N32.89 Other specified disorders of bladder; K57.30 Diverticulosis of large intestine without perforation or abscess without bleeding; R31.0 Gross hematuria
CPT/HCPCS: 74176

== ENCOUNTER → 2021-05-17 | Outpatient (CLI) | payer MEDICARE ==
--- NOTE | 2021-05-17 16:58 | Diagnostic Imaging Report ---
PROCEDURE: CT chest without contrast. TECHNIQUE: Multiple contiguous axial images were obtained through the chest without the use of intravenous contrast. Auto Exposure Controls were utilized during the CT exam to meet ALARA standards for radiation dose reduction. INDICATION: Pulmonary nodule. COMPARISON: There is no previous study available at this time for comparison. FINDINGS: There is mild centrilobular emphysema throughout the lungs. No consolidation is identified. There is no significant pleural or pericardial fluid. There is an approximately 1.2 cm in diameter mildly lobulated nodule within the right upper lobe just above the bijan. No other definite mass is seen. There is no evidence of pathologically enlarged adenopathy within the thorax. IMPRESSION: 1.2 cm lobulated nodule in the right upper lobe. This is nonspecific; however, possibility of pulmonary neoplasm is not excluded. Correlation to any older study would be useful for determination of chronicity. Otherwise, consideration could be given to PET scan for characterization. Dictated by: Dictated on workstation # [id number]
== END ==
LOC: RAD FS 15:36
PROVIDERS: ATTEND Family Medicine
DX: R91.1 Solitary pulmonary nodule (principal)
CPT/HCPCS: 71250

== ENCOUNTER 2022-01-21 08:58 | Inpatient (IN) | payer MEDICARE ==
[~2022-01-21] VITALS: Ht 172.7 cm; Wt 76.8 kg
[~2022-01-21 08:58] MED LIST changes: +CETI-511 PO; -CETI1TAB86 PO
[2022-01-21 09:28] LABS: BASOPHILS % (AUTO) 0 % (0-10); EOSINOPHILS # (AUTO) 0.1 10^3/uL (0.0-0.3); EOSINOPHILS % (AUTO) 1 % (0-10); HEMATOCRIT 33 % (40-54); HEMOGLOBIN 11.3 g/dL (13.3-17.7); LYMPHOCYTES # (AUTO) 0.9 10^3/uL (1.0-4.0); LYMPHOCYTES % (AUTO) 9 % (12-44); MEAN CORPUSCULAR HEMOGLOBIN 31 pg (25-34); MEAN CORPUSCULAR HGB CONC 35 g/dL (32-36); MEAN CORPUSCULAR VOLUME 89 fL (80-99); MEAN PLATELET VOLUME 9.4 fL (9.0-12.2); MONOCYTES % (AUTO) 10 % (0-12); NEUTROPHILS # (AUTO) 8.1 10^3/uL (1.8-7.8); NEUTROPHILS % (AUTO) 80 % (42-75); PLATELET COUNT 239 10^3/uL (130-400); WHITE BLOOD COUNT 10.2 10^3/uL (4.3-11.0)
[2022-01-21] MEDS ORDERED: ONDANSETRON 4 MG/2 ML (SDV) Z0FRAN IV PRN (09:30)
[2022-01-21] MEDS ORDERED: CEFEPIME INJECTION 2,000 MG in NS (IVPB) 100 ML IV ONE (09:30)
[2022-01-21 09:33] LABS: BILIRUBIN,URINE NEGATIVE (NEGATIVE); CLARITY,URINE CLEAR; COLOR,URINE YELLOW; GLUCOSE, URINE (UA) TRACE (NEGATIVE); KETONES,URINE NEGATIVE (NEGATIVE); LEUKOCYTE ESTERASE ,URINE NEGATIVE (NEGATIVE); NITRITE,URINE NEGATIVE (NEGATIVE); PH,URINE 6.5 (5-9); PROTEIN,URINE TRACE (NEGATIVE)
--- NOTE | 2022-01-21 09:40 | Diagnostic Imaging Report ---
INDICATION: Shortness of breath, status post fall. EXAMINATION: Frontal chest obtained at 9:30 AM. FINDINGS: The heart is borderline in size. There is central vascular congestion with chronic appearing increased perihilar markings. There is a questionable nodular density over the right midlung. There is no pneumothorax or pleural fluid. IMPRESSION: Mild central vascular congestion and chronic appearing increased interstitial markings. Questionable small nodular density over the right perihilar region. This would appear to correspond to a nodule seen on the chest CT of 05/17/2021. Dictated by: Dictated on workstation # [id number]
[2022-01-21 09:42] LABS: BACTERIA,URINE NEGATIVE /HPF; RBC,URINE 0-2 /HPF; WBC,URINE RARE /HPF
[2022-01-21 09:42] LABS: PROTHROMBIN TIME PATIENT 13.4 SEC (12.2-14.7)
[2022-01-21 09:58] LABS: ALBUMIN 4.2 GM/DL (3.2-4.5); BILIRUBIN,TOTAL 0.7 MG/DL (0.1-1.0); CALCIUM 9.7 MG/DL (8.5-10.1); CREATININE SERUM 1.14 MG/DL (0.60-1.30); TOTAL PROTEIN 6.6 GM/DL (6.4-8.2)
[2022-01-21] MEDS ORDERED: NS 100 ML (IVPB) BAG IV ONE (10:15)
[2022-01-21] MEDS ORDERED: HOLD METFORMIN - RECEIVED CONTRAST 20 ML VIAL IV SCH (10:15)
[2022-01-21] MEDS ORDERED: IOHEXOL 350 MG/ML 100 ML (OMNIPAQUE 350) VIAL IV ONE (10:15)
--- NOTE | 2022-01-21 10:32 | ED Hip Pain/Injury ---
General Chief Complaint: Hip/Pelvic Problems Stated Complaint: FALL; RT HIP/LEG PAIN Nursing Triage Note: Patient brought to the ED by EMS for chief complaint of fall with right hip pain. Patient and his report patient fell on Thursday and landed on his right side. states patient had xrays yesterday at [facility] walk-in care and they are waiting on the radiologist report. She reports patient fell again at 3:30 am this morning and again landed on his right side. She states she was able to get patient to the couch, but that he was unable to get up from the couch due to pain. Bruising present to right hip, right leg shortened and rotated. reports patient has Alzheimer's, neuropathy, DM, CAD, and rectal cancer. Source: patient, family Exam Limitations: no limitations, other (dementia) History of Present Illness Date Seen by Provider: Jan 21, 2022 Time Seen by Provider: 09:00 Initial Comments Patient is a 76-year-old male with history of dementia, rectal cancer who presents with shortness of breath after feeling dizzy and falling today at home and landing on his right side. Patient did not hit his head lose consciousness. He does not have neck pain reports diffuse right-sided lower back pain. On EMS arrival, the patient was hypoxic with O2 saturation 81%. He was placed on 4 L, intensity is saturating 90%. Additional history by the patient's spouse who is his primary caregiver. Timing/Duration: just prior to arrival Severity: moderate Method of Injury: other Modifying Factors: Improves With Other Associated Symptoms: other Allergies and Home Medications Allergies Coded Allergies: Zzhzfgg-WNU-IlU Reductase Inhibitor (Verified Allergy, Unknown, 01/21/22) Patient Home Medication List Home Medication List Reviewed: No Alprazolam (Alprazolam) 0.5 Mg Tablet, 0.5 MG PO HS, (Reported) Entered as Reported by: GULSHAN ELLIS on 03/28/19 1348 Amlodipine Besylate (Amlodipine Besylate) 5 Mg Tablet, 5 MG PO DAILY, (Reported) Entered as Reported by: GULSHAN ELLIS on 03/28/19 1348 Aspirin (Aspirin EC) 325 Mg Tablet.dr, 325 MG PO DAILY, (Reported) Entered as Reported by: GULSHAN ELLIS on 03/28/19 1435 Aspirin/Acetaminophen/Caffeine (Excedrin Extra Strength Caplet) 1 Each Tablet, 1-2 TAB PO BID PRN for PAIN-MILD, (Reported) Entered as Reported by: GULSHAN ELLIS on 03/28/19 134 Baclofen (Baclofen) 10 Mg Tablet, 10 MG PO Q8HR PRN for MUSCLE SPASM Prescribed by: LENNY CAVANAUGH on 04/01/19 0914 Cetirizine HCl/Pseudoephedrine (Cetirizine-Pse ER 5-120 mg Tab) 1 Each Tab.er.12h, 1 TAB PO DAILY, (Reported) Entered as Reported by: GULSHAN ELLIS on 03/28/19 150 Ezetimibe (Zetia) 10 Mg Tablet, 10 MG PO HS, (Reported) Entered as Reported by: GULSHAN ELLIS on 03/28/19 150 Gabapentin (Gabapentin) 100 Mg Capsule, 100 MG PO HS, (Reported) Entered as Reported by: GULSHAN ELLIS on 03/28/19 150 Glipizide (Glipizide) 5 Mg Tablet, 5 MG PO DAILY, (Reported) Entered as Reported by: GULSHAN ELLIS on 03/28/19 134 Hydrocodone Bit/Acetaminophen (HYDROcodone/APAP 10/325 TABLET) 1 Each Tablet, 1- 2 EA PO Q4H PRN for PAIN-MODERATE Prescribed by: LENNY CAVANAUGH on 04/01/19 09 Losartan Potassium (Losartan Potassium) 100 Mg Tablet, 100 MG PO DAILY, ( Reported) Entered as Reported by: GULSHAN ELLIS on 03/28/19 134 Metformin HCl (Metformin HCl) 1,000 Mg Tablet, 1,000 MG PO BID, (Reported) Entered as Reported by: GULSHAN ELLIS on 03/28/19 134 Multivit-Min/FA/Lycopene/Lut (Complete Multi 50+ Tablet) 1 Each Tablet, 1 TAB PO DAILY, (Reported) Entered as Reported by: GULSHAN ELLIS on 03/28/19 134 Niacin (Inositol Niacinate) (Niacin 500 mg Capsule) 500 Mg Capsule, 500 MG PO HS, (Reported) Entered as Reported by: GULSHAN ELLIS on 03/28/19 134 [place] Fruit/Zinc Picoli (Saw [place] 450 mg Capsule) 1 Each Capsule, 2 CAP PO DAILY, (Reported) Entered as Reported by: GULSHAN ELLIS on 03/28/19 1348 Sennosides/Docusate Sodium (Senna-Time S Tablet) 1 Each Tablet, 2 EA PO BID Prescribed by: LENNY CAVANAUGH on 04/01/19 0914 Tamsulosin HCl (Flomax) 0.4 Mg Cap, 0.4 MG PO DAILY, (Reported) Entered as Reported by: GULSHAN ELLIS on 03/28/19 1501 Terazosin HCl (Terazosin HCl) 2 Mg Capsule, 2 MG PO HS, (Reported) Entered as Reported by: GULSHAN ELLIS on 03/28/19 1348 Tolterodine Tartrate (Detrol LA) 4 Mg Cap, 4 MG PO HS Prescribed by: LENNY CAVANAUGH on 04/01/19 09 [Trospium Chloride] 20 MG TAB, 20 MG PO DAILY@06,16 Prescribed by: LENNY CAVANAUGH on 04/01/19913 Review of Systems Constitutional: see HPI EENTM: see HPI Respiratory: see HPI Cardiovascular: see HPI Gastrointestinal: see HPI Genitourinary: see HPI Musculoskeletal: see HPI Skin: see HPI Psychiatric/Neurological: See HPI Past [id number]-Lufcow-Txvnjm Hx Patient Social History Tobacco Use?: Yes Smoking Status: Former Smoker Use of E-Cig and/or Vaping dev: Yes Substance use?: No Alcohol Use?: No Pt feels they are or have been: No Past Medical History Surgery/Hospitalization HX: Neuropathy, Rectal cancer, Alzheimer's, DM, CAD, 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 Orthopedic High Cholesterol, Hypertension Dementia, TIA Benign Prostatic Hyperpl Chronic Constipation Arthritis, Chronic Back Pain Diabetes, Non-Insulin dep Family Medical History Alzheimer's disease G8 BROTHER Asthma G8 BROTHER Cardiovascular disease 19 FATHER G8 BROTHER Fibrocystic disease of breast G8 SISTER Hypertension G8 BROTHER G8 SISTER Myocardial infarction G8 BROTHER Physical Exam Vital Signs Vital Signs - First Documented 01/21/22 09:36 Temp 36.4 Pulse 103 Resp 17 B/P (MAP) 177/98 (124) Pulse Ox 95 O2 Delivery Nasal Cannula O2 Flow Rate 4.00 Capillary Refill : Less Than 3 Seconds Height, Weight, BMI Height: '" Weight: lbs. oz. kg; 24.00 BMI Method: General Appearance: No Apparent Distress, WD/WN HEENT: PERRL/EOMI, Normal ENT Inspection, Pharynx Normal Neck: Full Range of Motion, Normal Inspection Cardiovascular: Regular Rate, Rhythm Respiratory: Decreased Breath Sounds, Rhonci Gastrointestinal: Non Tender Neurologic/Psychiatric: Alert, No Motor/Sensory Deficits, Normal Mood/Affect Progress/Results/Core Measures Results/Orders Lab Results Laboratory Tests Test 01/21/22 09:07 01/21/22 09:25 01/21/22 09:30 01/21/22 11:49 Range/Units White Blood Count 10.2 4.3-11.0 10^3/uL Red Blood Count 3.68 L 4.30-5.52 10^6/uL Hemoglobin 11.3 L 13.3-17.7 g/dL Hematocrit 33 L 40-54 % Mean Corpuscular Volume 89 80-99 fL Mean Corpuscular Hemoglobin 31 25-34 pg Mean Corpuscular Hemoglobin Concent 35 32-36 g/dL Red Cell Distribution Width 14.4 10.0-14.5 % Platelet Count 239 130-400 10^3/uL Mean Platelet Volume 9.4 9.0-12.2 fL Immature Granulocyte % (Auto) 1 % Neutrophils (%) (Auto) 80 H 42-75 % Lymphocytes (%) (Auto) 9 L 12-44 % Monocytes (%) (Auto) 10 0-12 % Eosinophils (%) (Auto) 1 0-10 % Basophils (%) (Auto) 0 0-10 % Neutrophils # (Auto) 8.1 H 1.8-7.8 10^3/uL Lymphocytes # (Auto) 0.9 L 1.0-4.0 10^3/uL Monocytes # (Auto) 1.0 0.0-1.0 10^3/uL Eosinophils # (Auto) 0.1 0.0-0.3 10^3/uL Basophils # (Auto) 0.0 0.0-0.1 10^3/uL Immature Granulocyte # (Auto) 0.1 0.0-0.1 10^3/uL Prothrombin Time 13.4 12.2-14.7 SEC INR Comment 1.0 0.8-1.4 Activated Partial Thromboplast Time 31 24-35 SEC Sodium Level 138 135-145 MMOL/L Potassium Level 4.0 3.6-5.0 MMOL/L Chloride Level 104 98-107 MMOL/L Carbon Dioxide Level 22 21-32 MMOL/L Anion Gap 12 5-14 MMOL/L Blood Urea Nitrogen 24 H 7-18 MG/DL Creatinine 1.14 0.60-1.30 MG/DL Estimat Glomerular Filtration Rate 67 BUN/Creatinine Ratio 21 Glucose Level 167 H 70-105 MG/DL Calcium Level 9.7 8.5-10.1 MG/DL Corrected Calcium 9.5 8.5-10.1 MG/DL Total Bilirubin 0.7 0.1-1.0 MG/DL Aspartate Amino Transf (AST/SGOT) 16 5-34 U/L Alanine Aminotransferase (ALT/SGPT) 19 0-55 U/L Alkaline Phosphatase 103 40-136 U/L Troponin I < 0.30 <0.30 NG/ML Pro-B-Type Natriuretic Peptide 83.6 <450.0 PG/ML Total Protein 6.6 6.4-8.2 GM/DL Albumin 4.2 3.2-4.5 GM/DL Lactic Acid Level 1.39 0.50-2.00 MMOL/L Urine Color YELLOW Urine Clarity CLEAR Urine pH 6.5 5-9 Urine Specific [place] 1.020 1.016-1.022 Urine Protein TRACE H NEGATIVE Urine Glucose (UA) TRACE H NEGATIVE Urine Ketones NEGATIVE NEGATIVE Urine Nitrite NEGATIVE NEGATIVE Urine Bilirubin NEGATIVE NEGATIVE Urine Urobilinogen 0.2 < = 1.0 MG/DL Urine Leukocyte Esterase NEGATIVE NEGATIVE Urine RBC (Auto) TRACE-I H NEGATIVE Urine RBC 0-2 /HPF Urine WBC RARE /HPF Urine Squamous Epithelial Cells NONE /HPF Urine Crystals NONE /LPF Urine Bacteria NEGATIVE /HPF Urine Casts NONE /LPF Urine Mucus NEGATIVE /LPF Urine Culture Indicated CULTURE PENDING Influenza Type A (RT-PCR) Not Detected Not Detecte Influenza Type B (RT-PCR) Not Detected Not Detecte SARS-CoV-2 RNA (RT-PCR) Not Detected Not Detecte My Orders Orders - SONIA GAMINO DO Cbc With Automated Diff (01/21/22 09:16) Comprehensive Metabolic Panel (01/21/22 09:16) Blood Culture (01/21/22 09:16) Urinalysis (01/21/22 09:16) Urine Culture (01/21/22 09:16) Protime With Inr (01/21/22 09:16) Partial Thromboplastin Time (01/21/22 09:16) Chest 1 View Ap/Pa Only (01/21/22 09:16) Ed Iv/Invasive Line Start (01/21/22 09:16) Ed Iv/Invasive Line Start (01/21/22 09:16) Vital Signs Adult Sepsis Patie Q15M (01/21/22 09:16) Ondansetron Injection (Zofran Injectio (01/21/22 09:30) O2 (01/21/22 09:16) Remove Rings In Anticipation O (01/21/22 09:16) Lactic Acid Analyzer (01/21/22 09:16) Cefepime Injection (Maxipime Injection) (01/21/22 09:30) Ct Head Wo (01/21/22 09:16) Ct Angio Chest/Abd/Pelv W (01/21/22 09:16) Iohexol Injection (Omnipaque 350 Mg/Ml 1 (01/21/22 10:15) Received Contrast (Hold Metformin- Contr (01/21/22 10:15) Ns (Ivpb) (Sodium Chloride 0.9% Ivpb Bag (01/21/22 10:15) Probnp Fs (01/21/22 10:18) Troponin I Fs (01/21/22 10:18) Ketorolac Injection (Toradol Injection) (01/21/22 11:15) Fentanyl Inj (Sublimaze Injection) (01/21/22 11:15) Ondansetron Injection (Zofran Injectio (01/21/22 11:15) Hip 2-3 View Right (01/21/22 11:37) Covid 19 Inhouse Test (01/21/22 11:37) Influenza A And B By Pcr (01/21/22 11:37) Isolation Central Supply Req (01/21/22 11:37) Medications Given in ED Current Medications Medications Dose Ordered Sig/Harrison Route Start Time Stop Time Status Last Admin Dose Admin Cefepime HCl 2000 mg/Sodium Chloride 100 ml @ 100 mls/hr ONCE ONCE IV 01/21/22 09:30 01/21/22 10:29 DC 01/21/22 09:37 100 MLS/HR Fentanyl Citrate 50 mcg ONCE ONCE IVP 01/21/22 11:15 01/21/22 11:16 DC 01/21/22 11:11 50 MCG Iohexol 100 ml ONCE ONCE IV 01/21/22 10:15 01/21/22 10:16 DC 01/21/22 10:26 100 ML Ketorolac Tromethamine 15 mg ONCE ONCE IVP 01/21/22 11:15 01/21/22 11:16 DC 01/21/22 11:11 15 MG Ondansetron HCl 4 mg ONCE ONCE IVP 01/21/22 11:15 01/21/22 11:16 DC 01/21/22 11:11 4 MG Ondansetron HCl 4 mg PRN PRN IV 01/21/22 09:30 01/21/22 09:38 DC 01/21/22 09:37 4 MG Sodium Chloride 100 ml ONCE ONCE IV 01/21/22 10:15 01/21/22 10:16 DC 01/21/22 10:26 100 ML Vital Signs/I&O 01/21/22 01/21/22 09:36 09:44 Temp 36.4 Pulse 103 Resp 17 B/P (MAP) 177/98 (124) Pulse Ox 95 95 O2 Delivery Nasal Cannula Nasal Cannula O2 Flow Rate 4.00 4.00 Blood Pressure Mean: 124 Departure Communication (Admissions) CT head: No acute disease per radiology report CTA chest/abdomen/pelvis: Aneurysm, pulmonary mass, aortic aneurysm, right hip fracture per radiology report. Patient with fall from standing with right hip fracture. Patient hypoxic requiring 4 L nasal cannula. Unclear etiology but possibly related to PE. Empiric heparin initiated. Pain addressed. Dr. Grimes to admit, Dr. Keisha cummings to consult. Impression Primary Impression: Acute respiratory failure with hypoxia Additional Impression: Closed right hip fracture Disposition: ADMITTED INPATIENT Condition: Stable Admissions Decision to Admit/Date: Jan 21, 2022 Time/Decision to Admit Time: 12:15 (Dr. Grimes) Transfer Method of Transfer: EMS Departure-Patient Inst. Referrals: SELF,MARISA SANDOVAL (PCP) Primary Care Physician SONIA GAMINO DO Jan 21, 2022 10:32
--- NOTE | 2022-01-21 10:37 | Diagnostic Imaging Report ---
PROCEDURE: CT head without contrast. TECHNIQUE: Multiple contiguous axial images were obtained through the brain without the use of intravenous contrast. Auto Exposure Controls were utilized during the CT exam to meet ALARA standards for radiation dose reduction. INDICATION: Multiple falls, patient reports a history of rectal cancer. I have no priors. This patient has severe confluent periventricular white matter disease which may be on a posttreatment basis or reflect severe chronic small vessel sequelae. No findings of a focal or generalized cerebral edema, however there is no evidence for an elevation to the intracerebral pressures. The basilar cisterns are patent and there is no sulcal effacement. Ventricular calibers are congruent with the degree of sulcation consistent with generalized atrophy. No jossie hydrocephalus. No skull fracture deformity. No suspicious lytic or sclerotic bony lesion. There is mild membrane thickening in ethmoid air cells. No paranasal sinus air-fluid level. There is no mastoid effusion. Vascular calcifications atherosclerotic and chronic. IMPRESSION: Nonspecific periventricular white matter disease may be on posttreatment basis or reflect chronic small vessel sequelae. No posttraumatic or acute appearing abnormality. No findings suggestive of metastatic disease. Dictated by: Dictated on workstation # [id number]
--- NOTE | 2022-01-21 10:55 | Diagnostic Imaging Report ---
EXAMINATION: CT angiography of the chest, abdomen and pelvis. TECHNIQUE: Contrast enhanced thin section helical images were obtained through the chest, abdomen and pelvis with intravenous contrast timed for the optimal opacification of the arterial structures per CTA protocol. Post-processing, reconstructions and interpretation of angiographic images of the vessels was performed. 3D MIP reconstructions were performed and reviewed. All CT scans use one or more of the following dose optimizing techniques: automated exposure control, MA and/or KvP adjustment based on a patient size and exam type, or iterative reconstruction. HISTORY: Altered mental status, fall, chest and abdomen injury. COMPARISON: 04/11/2021. 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 There is a 3.1 x 3.0 cm abdominal aortic aneurysm. No acute aortic syndrome. No dissection. There is no edema or pneumonia. No pleural effusion. No pneumothorax. No suspicious nodules. There is mild dependent atelectasis. There is no axillary or supraclavicular lymphadenopathy. There is no mediastinal lymphadenopathy. Heart size is normal. There are moderate coronary artery calcifications. No pericardial effusion. The liver is normal without focal lesion. There is no biliary ductal dilation. Gallbladder is normal. Pancreas is normal. Spleen is normal. Adrenal glands are normal. The kidneys are normal. There is no hydronephrosis. Urinary bladder is normal. Bowel is normal in caliber without obstruction or inflammation. No free fluid or air. No abdominal or pelvic lymphadenopathy. There are no suspicious osseous lesions. There is a nondisplaced right femoral neck fracture. IMPRESSION: 1. No acute aortic syndrome. 2. Dilated abdominal aorta measuring 3.1 x 3.0 cm and dilated left common iliac artery measuring 2.4 cm. 3. Nondisplaced right femoral neck fracture. Dictated by: Dictated on workstation # [id number]
[2022-01-21] MEDS ORDERED: KETOROLAC 30 MG/ML VIAL IVP ONE (11:15)
[2022-01-21] MEDS ORDERED: fentaNYL INJ 100 MCG/2 ML AMP IVP ONE (11:15)
[2022-01-21] MEDS ORDERED: ONDANSETRON 4 MG/2 ML (SDV) Z0FRAN IVP ONE (11:15)
--- NOTE | 2022-01-21 12:08 | Diagnostic Imaging Report ---
INDICATION: Fall with right hip pain. TIME OF EXAM: 11:45 AM 2 views of the right hip were obtained. FINDINGS: Femoroacetabular alignment is normal. There are some degenerative changes noted. There are findings suggestive of a subcapital femoral neck fracture. No displacement is seen. A right-sided rami appear intact. IMPRESSION: Subcapital right hip fracture. Dictated by: Dictated on workstation # [id number]
[2022-01-21] MEDS ORDERED: HEParin 1000 UNIT/ML (10ML VIAL) FOR BOLUS IV ONE (12:43)
[2022-01-21] MEDS ORDERED: HEParin DRIP 25000 UNIT/500ML 500 ML IV ONE (12:45)
[2022-01-21] MEDS ORDERED: fentaNYL INJ 100 MCG/2 ML AMP ONE (13:58)
[2022-01-21 15:00] VITALS: BP_SYST 131; BP_SYST 160; BP_DIAS 84; BP_DIAS 99
[2022-01-21 15:06] VITALS: BP 131/84
[2022-01-21 16:02] VITALS: BP 161/96
[2022-01-21 17:01] VITALS: BP 170/102
[2022-01-21] MEDS ORDERED: CLOP75TA28 PO (17:43)
[2022-01-21] MEDS ORDERED: ASCO-262 PO (17:43)
[2022-01-21] MEDS ORDERED: ZINC50TA11 PO (17:43)
[2022-01-21] MEDS ORDERED: CHOL-34 PO (17:43)
[2022-01-21] MEDS ORDERED: MIRA50TA PO (17:43)
[2022-01-21] MEDS ORDERED: SERT-414 PO (17:43)
[2022-01-21] MEDS ORDERED: CYAN25003 SL (17:44)
[2022-01-21] MEDS ORDERED: HEParin 1000 UNIT/ML (10ML VIAL) FOR BOLUS IV PRN (17:45)
[2022-01-21] MEDS: LOSARTAN 100 MG (COZAAR) TABLET PO SCH (18:05)
[2022-01-21] MEDS: amLODIPine 5 MG (NORVASC) TAB PO SCH (18:05)
[2022-01-21 19:00] VITALS: BP 168/95
--- NOTE | 2022-01-21 19:35 | History & Physical ---
HPI History of Present Illness: History provided by . Patient with history of Alzheimer dementia and peripheral neuropathy has been having more falls recently. He saw his Neurologist and they discussed that he needed to use walker all the time, but he forgets. He fell this morning when not using his walker and was brought to the ER, found to have right femoral neck fracture. He is not having a lot of pain currently. He was also noted to be significantly hypoxic, and his states this has not generally been a problem for him, other than post-op he has used oxygen then. He denies shortness of breath, cough or chest pain. He was diagnosed with rectal cancer in the past year, declined surgery due to quality of life concerns with ostomy and did a trial of radiation but did not tolerate well, so is being monitored clinically, but no known mets per . He has a lung nodule that has been being followed and will be due for imaging in Mar, states it has been thought to be relatively insignificant. At baseline, he has good and bad days, poor short term memory, but always knows who his is. Source: family Date seen by provider: Jan 21, 2022 Time Seen by Provider: 17:20 Attending Physician Helder Dougherty MD PCP Admitting Physician: Aliyah Grimes MD Attending Physician: Aliyah Grimes MD Consult Date of Admission Jan 21, 2022 at 14:48 Home Medications Home Medications Reviewed patient Home Medication Reconciliation performed by pharmacy medication reconciliations solar maintenance technician and/or nursing. Patients Allergies have been reviewed. Allergies Coded Allergies: Jzlipdx-LJP-HfM Reductase Inhibitor (Verified Allergy, Unknown, 01/21/22) [id number]-Ytuxra Hx Patient Social History Smoking Status: Former Smoker Alcohol Use?: No Have you traveled recently?: No Past Medical History PMHx: Rectal cancer Diabetes HTN Alzheimer dementia Peripheral neuropathy SurgHx: Lumbar fusion Shoulder surgery Hernia repair Right SFA ballooning Family Medical History Family History: Alzheimer's disease G8 BROTHER Asthma G8 BROTHER Cardiovascular disease 19 FATHER G8 BROTHER Fibrocystic disease of breast G8 SISTER Hypertension G8 BROTHER G8 SISTER Myocardial infarction G8 BROTHER Review of Systems ([facility]) Constitutional: No fever Respiratory: No cough, No short of breath Cardiovascular: No chest pain Gastrointestinal: no symptoms reported Musculoskeletal: see HPI Reviewed Test Results Reviewed Test Results Lab Laboratory Tests Test 01/21/22 09:07 8/16/22 09:25 01/21/22 09:30 01/21/22 11:49 Range/Units White Blood Count 10.2 4.3-11.0 10^3/uL Red Blood Count 3.68 L 4.30-5.52 10^6/uL Hemoglobin 11.3 L 13.3-17.7 g/dL Hematocrit 33 L 40-54 % Mean Corpuscular Volume 89 80-99 fL Mean Corpuscular Hemoglobin 31 25-34 pg Mean Corpuscular Hemoglobin Concent 35 32-36 g/dL Red Cell Distribution Width 14.4 10.0-14.5 % Platelet Count 239 130-400 10^3/uL Mean Platelet Volume 9.4 9.0-12.2 fL Immature Granulocyte % (Auto) 1 % Neutrophils (%) (Auto) 80 H 42-75 % Lymphocytes (%) (Auto) 9 L 12-44 % Monocytes (%) (Auto) 10 0-12 % Eosinophils (%) (Auto) 1 0-10 % Basophils (%) (Auto) 0 0-10 % Neutrophils # (Auto) 8.1 H 1.8-7.8 10^3/uL Lymphocytes # (Auto) 0.9 L 1.0-4.0 10^3/uL Monocytes # (Auto) 1.0 0.0-1.0 10^3/uL Eosinophils # (Auto) 0.1 0.0-0.3 10^3/uL Basophils # (Auto) 0.0 0.0-0.1 10^3/uL Immature Granulocyte # (Auto) 0.1 0.0-0.1 10^3/uL Prothrombin Time 13.4 12.2-14.7 SEC INR Comment 1.0 0.8-1.4 Activated Partial Thromboplast Time 31 24-35 SEC Sodium Level 138 135-145 MMOL/L Potassium Level 4.0 3.6-5.0 MMOL/L Chloride Level 104 98-107 MMOL/L Carbon Dioxide Level 22 21-32 MMOL/L Anion Gap 12 5-14 MMOL/L Blood Urea Nitrogen 24 H 7-18 MG/DL Creatinine 1.14 0.60-1.30 MG/DL Estimat Glomerular Filtration Rate 67 BUN/Creatinine Ratio 21 Glucose Level 167 H 70-105 MG/DL Calcium Level 9.7 8.5-10.1 MG/DL Corrected Calcium 9.5 8.5-10.1 MG/DL Total Bilirubin 0.7 0.1-1.0 MG/DL Aspartate Amino Transf (AST/SGOT) 16 5-34 U/L Alanine Aminotransferase (ALT/SGPT) 19 0-55 U/L Alkaline Phosphatase 103 40-136 U/L Troponin I < 0.30 <0.30 NG/ML Pro-B-Type Natriuretic Peptide 83.6 <450.0 PG/ML Total Protein 6.6 6.4-8.2 GM/DL Albumin 4.2 3.2-4.5 GM/DL Lactic Acid Level 1.39 0.50-2.00 MMOL/L Urine Color YELLOW Urine Clarity CLEAR Urine pH 6.5 5-9 Urine Specific Guild 1.020 1.016-1.022 Urine Protein TRACE H NEGATIVE Urine Glucose (UA) TRACE H NEGATIVE Urine Ketones NEGATIVE NEGATIVE Urine Nitrite NEGATIVE NEGATIVE Urine Bilirubin NEGATIVE NEGATIVE Urine Urobilinogen 0.2 < = 1.0 MG/DL Urine Leukocyte Esterase NEGATIVE NEGATIVE Urine RBC (Auto) TRACE-I H NEGATIVE Urine RBC 0-2 /HPF Urine WBC RARE /HPF Urine Squamous Epithelial Cells NONE /HPF Urine Crystals NONE /LPF Urine Bacteria NEGATIVE /HPF Urine Casts NONE /LPF Urine Mucus NEGATIVE /LPF Urine Culture Indicated CULTURE PENDING Influenza Type A (RT-PCR) Not Detected Not Detecte Influenza Type B (RT-PCR) Not Detected Not Detecte SARS-CoV-2 RNA (RT-PCR) Not Detected Not Detecte Test 01/21/22 17:20 Range/Units Activated Partial Thromboplast Time 139 *H 24-35 SEC Radiology CXR 01/21/22: IMPRESSION: Mild central vascular congestion and chronic appearing increased interstitial markings. Questionable small nodular density over the right perihilar region. This would appear to correspond to a nodule seen on the chest CT of 05/17/2021. CTA chest/abd/pelvis 01/21/22: IMPRESSION: 1. No acute aortic syndrome. 2. Dilated abdominal aorta measuring 3.1 x 3.0 cm and dilated left common iliac artery measuring 2.4 cm. 3. Nondisplaced right femoral neck fracture. Head CT 01/21/22: IMPRESSION: Nonspecific periventricular white matter disease may be on posttreatment basis or reflect chronic small vessel sequelae. No posttraumatic or acute appearing abnormality. No findings suggestive of metastatic disease. Right hip x-ray 01/21/22: IMPRESSION: Subcapital right hip fracture. Physical Exam-([facility]) Physical Exam Vital Signs VS - Last 72 Hours, by Label 01/21/22 01/21/22 01/21/22 01/21/22 09:36 09:44 14:05 14:59 Temp 36.4 Pulse 103 107 97 Resp 17 19 B/P (MAP) 177/98 (124) 142/80 Pulse Ox 95 95 94 O2 Delivery Nasal Cannula Nasal Cannula Room Air O2 Flow Rate 4.00 4.00 01/21/22 01/21/22 01/21/22 01/21/22 15:00 15:00 15:00 15:06 Temp 37.2 36.8 Pulse 98 98 97 Resp 17 14 18 B/P (MAP) 131/84 (100) 160/99 (119) 131/84 (100) Pulse Ox 91 92 92 91 O2 Delivery OxyMask OxyMask OxyMask O2 Flow Rate 7.00 7.00 7.00 01/21/22 01/21/22 01/21/22 01/21/22 15:22 16:02 17:01 18:00 Pulse 98 101 103 Resp 10 21 9 B/P (MAP) 161/96 (117) 170/102 (124) Pulse Ox 93 94 93 94 O2 Delivery OxyMask OxyMask OxyMask OxyMask O2 Flow Rate 7.00 7.00 7.00 7.00 01/21/22 19:00 Temp 36.9 Pulse 109 Resp 14 B/P (MAP) 168/95 (119) Pulse Ox 97 O2 Delivery Nasal Cannula Capillary Refill : Less Than 3 Seconds General Appearance: no apparent distress Respiratory: lungs clear, normal breath sounds Cardiovascular: regular rate, rhythm Peripheral Pulses: 2+ Dorsalis Pedis (R); 0 Left Dors-Pedis (L) Gastrointestinal: normal bowel sounds, non tender, soft Extremities: pedal edema (dorsum of feet, does not extend to legs) Neurologic/Psychiatric: other (drowsy, arouses to voice, doesn't stay awake long to answer questions) Skin: warm/dry Assessment/Plan Assessment/Plan Admission Status: Inpatient Order (span 2 midnights) Reason for Inpatient Admission: Hip fracture with respiratory failure (1) Closed right hip fracture Status: Acute Assessment & Plan: Orthopedic Surgery consulted, appreciate recommendations. Qualifiers: Qualified Codes: S72.001A - Fracture of unspecified part of neck of right femur, initial encounter for closed fracture (2) Acute respiratory failure with hypoxia Status: Acute Assessment & Plan: Uncertain etiology, but requiring up to 7 lpm supplemental oxygen. Started on heparin drip for possible PE, unfortunately CTA order did not obtain the PE scan desired. BNP and troponin nml. Will check echo and consult Cardiology for possible cardiac disease. (3) Diabetes mellitus Status: Chronic Assessment & Plan: Hold home meds. Sliding scale insulin, diabetic diet. Qualifiers: Qualified Codes: E11.65 - Type 2 diabetes mellitus with hyperglycemia (4) Dementia Status: Chronic (5) Hyperlipidemia Assessment & Plan: Resume home ezetemibe and niacin. Can't tolerate statins. (6) Hypertension Assessment & Plan: Resume home meds Qualifiers: Qualified Codes: I10 - Essential (primary) hypertension (7) BPH (benign prostatic hyperplasia) Status: Chronic Assessment & Plan: Resume home meds Qualifiers: (8) DVT prophylaxis Status: Acute Assessment & Plan: Heparin drip at treatment dose currently. ALIYAH GRIMES MD Jan 21, 2022 19:33
[2022-01-21 20:00] VITALS: BP 156/99
[2022-01-21] MEDS ORDERED: ALPRAZolam 0.5 MG (XANAX) TAB ONE (20:46)
[2022-01-21] MEDS ORDERED: HYDROcodone/APAP 5 MG/325 MG (LORTAB) TAB ONE (20:47)
[2022-01-21] MEDS: ALPRAZolam 0.5 MG (XANAX) TAB PO SCH (20:51)
[2022-01-21] MEDS: HYDROcodone/APAP 5 MG/325 MG (LORTAB) TAB PO PRN ×2 (20:52→21:22)
[2022-01-21] MEDS: TERAZOSIN 1 MG CAP (HYTRIN) PO SCH (20:54)
[2022-01-21] MEDS ORDERED: GABAPENTIN 100 MG (NEURONTIN) CAP PO SCH (21:00)
[2022-01-21] MEDS ORDERED: eZETimibe 10 MG (ZETIA) TABLET PO SCH (21:00)
[2022-01-21] MEDS ORDERED: NON-FORMULARY MEDICATION 1 EA EA (Terazosin HCl 2 MG) PO SCH (21:00)
[2022-01-22] VITALS (11 sets, daily range): BP systolic 137–181; BP diastolic 79–107
[2022-01-22 05:40] LABS: HEMATOCRIT 33 % (40-54); HEMOGLOBIN 11.1 g/dL (13.3-17.7); MEAN CORPUSCULAR HEMOGLOBIN 31 pg (25-34); MEAN CORPUSCULAR HGB CONC 34 g/dL (32-36); MEAN CORPUSCULAR VOLUME 91 fL (80-99); MEAN PLATELET VOLUME 9.9 fL (9.0-12.2); PLATELET COUNT 224 10^3/uL (130-400); WHITE BLOOD COUNT 11.8 10^3/uL (4.3-11.0)
[2022-01-22 06:00] LABS: ALBUMIN 3.6 GM/DL (3.2-4.5); POTASSIUM 3.8 MMOL/L (3.6-5.0)
[2022-01-22 06:01] LABS: CALCIUM 9.1 MG/DL (8.5-10.1)
[2022-01-22 06:02] LABS: TOTAL PROTEIN 6.3 GM/DL (6.4-8.2)
[2022-01-22 06:04] LABS: BILIRUBIN,TOTAL 1.1 MG/DL (0.1-1.0)
[2022-01-22 06:06] LABS: CREATININE SERUM 1.22 MG/DL (0.60-1.30)
[2022-01-22] MEDS ORDERED: MIRABEGRON 25 MG TAB (MYRBETRIQ) PO SCH (08:00)
--- NOTE | 2022-01-22 08:48 | Progress Note ---
Subjective Subjective/Events-last exam Still requiring significant amount of supplemental oxygen, but feeling okay. Focused Exam Lactate Level 01/21/22 09:25: Lactic Acid Level 1.39 Objective Exam Last Set of Vital Signs Vital Signs Date Time Temp Pulse Resp B/P (MAP) Pulse Ox O2 Delivery O2 Flow Rate FiO2 01/22/22 08:02 37.5 101 18 157/105 (122) 97 01/22/22 04:00 OxyMask 10.00 Capillary Refill : Less Than 3 Seconds I&O Intake and Output 01/22/22 00:00 Intake Total 2450 ml Output Total 600 ml Balance 1850 ml Intake Oral 50 ml IV Total 2400 ml Output Urine Total 600 ml Daily Weight Change No General: Alert, No Acute Distress Lungs: Clear to Auscultation Heart: Regular Rate Abdomen: Normal Bowel Sounds, Soft Extremities: No Edema Neuro: Other (oriented to self, knows he is in the hospital but isn't able to state why) Psych/Mental Status: Mood NL Results/Procedures Lab Laboratory Tests 01/21/22 09:07: White Blood Count 10.2, Red Blood Count 3.68L, Hemoglobin 11.3L, Hematocrit 33L, Mean Corpuscular Volume 89, Mean Corpuscular Hemoglobin 31, Mean Corpuscular H emoglobin Concent 35, Red Cell Distribution Width 14.4, Platelet Count 239, Mean Platelet Volume 9.4, Immature Granulocyte % (Auto) 1, Neutrophils (%) (Auto) 80H , Lymphocytes (%) (Auto) 9L, Monocytes (%) (Auto) 10, Eosinophils (%) (Auto) 1, Basophils (%) (Auto) 0, Neutrophils # (Auto) 8.1H, Lymphocytes # (Auto) 0.9L, Monocytes # (Auto) 1.0, Eosinophils # (Auto) 0.1, Basophils # (Auto) 0.0, Immature Granulocyte # (Auto) 0.1, Prothrombin Time 13.4, INR Comment 1.0, Activated Partial Thromboplast Time 31, Sodium Level 138, Potassium Level 4.0, Chloride Level 104, Carbon Dioxide Level 22, Anion Gap 12, Blood Urea Nitrogen 24H, Creatinine 1.14, Estimat Glomerular Filtration Rate 67, BUN/Creatinine Ratio 21, Glucose Level 167H, Calcium Level 9.7, Corrected Calcium 9.5, Total Bilirubin 0.7, Aspartate Amino Transf (AST/SGOT) 16, Alanine Aminotransferase (ALT/SGPT) 19, Alkaline Phosphatase 103, Troponin I < 0.30, Pro-B-Type Natriuretic Peptide 83.6, Total Protein 6.6, Albumin 4.2 01/21/22 09:25: Lactic Acid Level 1.39 01/21/22 09:30: Urine Color YELLOW, Urine Clarity CLEAR, Urine pH 6.5, Urine Specific Bricelyn 1.020, Urine Protein TRACEH, Urine Glucose (UA) TRACEH, Urine Ketones NEGATIVE, Urine Nitrite NEGATIVE, Urine Bilirubin NEGATIVE, Urine Urobilinogen 0.2, Urine Leukocyte Esterase NEGATIVE, Urine RBC (Auto) TRACE-IH, Urine RBC 0-2, Urine WBC RARE, Urine Squamous Epithelial Cells NONE, Urine Crystals NONE, Urine Bacteria NEGATIVE, Urine Casts NONE, Urine Mucus NEGATIVE, Urine Culture Indicated CULTURE PENDING 01/21/22 11:49: Influenza Type A (RT-PCR) Not Detected, Influenza Type B (RT-PCR) Not Detected, SARS-CoV-2 RNA (RT-PCR) Not Detected 01/21/22 17:20: Activated Partial Thromboplast Time 139*H 01/22/22 01:09: Activated Partial Thromboplast Time 73H 01/22/22 05:05: White Blood Count 11.8H, Red Blood Count 3.63L, Hemoglobin 11.1L, Hematocrit 33L , Mean Corpuscular Volume 91, Mean Corpuscular Hemoglobin 31, Mean Corpuscular Hemoglobin Concent 34, Red Cell Distribution Width 14.6H, Platelet Count 224, Mean Platelet Volume 9.9, Sodium Level 137, Potassium Level 3.8, Chloride Level 105, Carbon Dioxide Level 19L, Anion Gap 13, Blood Urea Nitrogen 20H, Creatinine 1.22, Estimat Glomerular Filtration Rate 61, BUN/Creatinine Ratio 16, Glucose Level 160H, Calcium Level 9.1, Corrected Calcium 9.4, Total Bilirubin 1.1H, Aspartate Amino Transf (AST/SGOT) 13, Alanine Aminotransferase (ALT/SGPT) 20, Alkaline Phosphatase 86, Total Protein 6.3L, Albumin 3.6 01/22/22 08:15: Activated Partial Thromboplast Time 55H Radiology CXR 01/21/22: IMPRESSION: Mild central vascular congestion and chronic appearing increased interstitial markings. Questionable small nodular density over the right perihilar region. This would appear to correspond to a nodule seen on the chest CT of 05/17/2021. CTA chest/abd/pelvis 01/21/22: IMPRESSION: 1. No acute aortic syndrome. 2. Dilated abdominal aorta measuring 3.1 x 3.0 cm and dilated left common iliac artery measuring 2.4 cm. 3. Nondisplaced right femoral neck fracture. Head CT 01/21/22: IMPRESSION: Nonspecific periventricular white matter disease may be on posttreatment basis or reflect chronic small vessel sequelae. No posttraumatic or acute appearing abnormality. No findings suggestive of metastatic disease. Right hip x-ray 01/21/22: IMPRESSION: Subcapital right hip fracture. Assessment/Plan Assessment/Plan (1) Closed right hip fracture Status: Acute Assessment & Plan: Orthopedic Surgery consulted, appreciate recommendations. Qualifiers: Qualified Codes: S72.001A - Fracture of unspecified part of neck of right femur, initial encounter for closed fracture (2) Acute respiratory failure with hypoxia Status: Acute Assessment & Plan: Uncertain etiology, but requiring up to 7 lpm supplemental oxygen. Started on heparin drip for possible PE, unfortunately CTA order did not obtain the PE scan desired. BNP and troponin nml. Echo and Cardiology consult pending for possible cardiac disease. (3) Diabetes mellitus Status: Chronic Assessment & Plan: Hold home meds. Sliding scale insulin, diabetic diet. Qualifiers: Qualified Codes: E11.65 - Type 2 diabetes mellitus with hyperglycemia (4) Dementia Status: Chronic (5) Hyperlipidemia Assessment & Plan: Resume home ezetemibe and niacin. Can't tolerate statins. (6) Hypertension Assessment & Plan: Resume home meds Qualifiers: Qualified Codes: I10 - Essential (primary) hypertension (7) BPH (benign prostatic hyperplasia) Status: Chronic Assessment & Plan: Resume home meds Qualifiers: (8) DVT prophylaxis Status: Acute Assessment & Plan: Heparin drip at treatment dose currently. ALIYAH TRIPATHI MD Jan 22, 2022 08:48
[2022-01-22] MEDS: PSEUDOEPHEDRINE HCL 30 MG (SUDAFED) TAB PO SCH ×3 (09:00→22:40)
[2022-01-22] MEDS ORDERED: SERTRALINE 100 MG (ZOLOFT) TAB PO SCH (09:00)
[2022-01-22] MEDS ORDERED: SAW PALMETTO FRUIT PO SCH (09:00)
[2022-01-22] MEDS ORDERED: ZINC PICOLI PO SCH (09:00)
[2022-01-22] MEDS ORDERED: [UNRECOGNIZED DRUG - OTHER] PO SCH (09:00)
[2022-01-22] MEDS: TAMSULOSIN 0.4 MG (FLOMAX) CAP PO SCH (09:05)
[2022-01-22] MEDS: VITAMIN D3 25 MCG (1,000 UNITS) TABLET PO SCH (09:05)
[2022-01-22] MEDS: amLODIPine 5 MG (NORVASC) TAB PO SCH (09:05)
[2022-01-22] MEDS: LOSARTAN 100 MG (COZAAR) TABLET PO SCH (09:05)
[2022-01-22] MEDS: HEParin DRIP 25000 UNIT/500ML 500 ML IV SCH ×2 (10:21→23:26)
--- NOTE | 2022-01-22 10:52 | Consultation-Cardiology ---
HPI-Cardiology Cardiology Consultation Date of Consultation 01/22/22 Date of Admission Time Seen by Provider: 10:48 Indication: Preoperative cardiac evaluation HPI 76-year-old gentleman with Alzheimer's dementia and peripheral neuropathy, worsening recently. Patient has been having multiple falls, the last fall resulted in a hip fracture. He is unable to get up having significant pain. He has history of rectal cancer and decline chemotherapy due to extreme fatigue after receiving the initial treatment. He sustained right-sided hip fracture, laying down in bed at this point. I was called for preoperative cardiac evaluation. He denied any chest pain. No palpitation. No syncope or near syncopal episodes. No claudications. Home Medications & Allergies Allergies: Coded Allergies: Hkpyyhg-VZE-NpS Reductase Inhibitor (Verified Allergy, Unknown, 01/21/22) Home Medication List Reviewed: Yes NZV-Qqroor-Yrzlgt Hx Patient Social History Marital Status: Employed/Student: retired Smoking Status: Former Smoker Type Used: Electronic/Vapor Have you traveled recently?: No Alcohol Use?: No Immunizations Up To Date Date of Pneumonia Vaccine: Mar 08, 2018 Date of Influenza Vaccine: Mar 26, 2018 Past Medical History Discussed below Family Medical History Family History: Alzheimer's disease G8 BROTHER Asthma G8 BROTHER Cardiovascular disease 19 FATHER G8 BROTHER Fibrocystic disease of breast G8 SISTER Hypertension G8 BROTHER G8 SISTER Myocardial infarction G8 BROTHER Review of Systems-General Review of Systems Constitutional: see HPI; No fever; malaise, weakness EENTM: see HPI, no symptoms reported Respiratory: see HPI; No cough, No dyspnea on exertion, No hemoptysis, No orthopnea, No phlegm, No short of breath, No stridor, No wheezing, No other Cardiovascular: see HPI; No chest pain, No edema, No Hx of Intervention, No palpitations, No syncope, No vascular heart diseas, No other Gastrointestinal: no symptoms reported, see HPI Genitourinary: see HPI Musculoskeletal: see HPI, back pain, joint pain (Right-sided hip fracture) Skin: see HPI Psychiatric/Neurological: See HPI, Numbness, Paresthesia Reviewed Test Results Reviewed Test Results Lab Laboratory Tests Test 01/21/22 11:49 01/21/22 17:20 01/22/22 01:09 01/22/22 05:05 Range/Units Influenza Type A (RT-PCR) Not Detected Not Detecte Influenza Type B (RT-PCR) Not Detected Not Detecte SARS-CoV-2 RNA (RT-PCR) Not Detected Not Detecte Activated Partial Thromboplast Time 139 *H 73 H 24-35 SEC White Blood Count 11.8 H 4.3-11.0 10^3/uL Red Blood Count 3.63 L 4.30-5.52 10^6/uL Hemoglobin 11.1 L 13.3-17.7 g/dL Hematocrit 33 L 40-54 % Mean Corpuscular Volume 91 80-99 fL Mean Corpuscular Hemoglobin 31 25-34 pg Mean Corpuscular Hemoglobin Concent 34 32-36 g/dL Red Cell Distribution Width 14.6 H 10.0-14.5 % Platelet Count 224 130-400 10^3/uL Mean Platelet Volume 9.9 9.0-12.2 fL Sodium Level 137 135-145 MMOL/L Potassium Level 3.8 3.6-5.0 MMOL/L Chloride Level 105 98-107 MMOL/L Carbon Dioxide Level 19 L 21-32 MMOL/L Anion Gap 13 5-14 MMOL/L Blood Urea Nitrogen 20 H 7-18 MG/DL Creatinine 1.22 0.60-1.30 MG/DL Estimat Glomerular Filtration Rate 61 BUN/Creatinine Ratio 16 Glucose Level 160 H 70-105 MG/DL Calcium Level 9.1 8.5-10.1 MG/DL Corrected Calcium 9.4 8.5-10.1 MG/DL Total Bilirubin 1.1 H 0.1-1.0 MG/DL Aspartate Amino Transf (AST/SGOT) 13 5-34 U/L Alanine Aminotransferase (ALT/SGPT) 20 0-55 U/L Alkaline Phosphatase 86 40-136 U/L Total Protein 6.3 L 6.4-8.2 GM/DL Albumin 3.6 3.2-4.5 GM/DL Test 01/22/22 08:15 Range/Units Activated Partial Thromboplast Time 55 H 24-35 SEC Radiology CXR 01/21/22: IMPRESSION: Mild central vascular congestion and chronic appearing increased interstitial markings. Questionable small nodular density over the right perihilar region. This would appear to correspond to a nodule seen on the chest CT of 05/17/2021. CTA chest/abd/pelvis 01/21/22: IMPRESSION: 1. No acute aortic syndrome. 2. Dilated abdominal aorta measuring 3.1 x 3.0 cm and dilated left common iliac artery measuring 2.4 cm. 3. Nondisplaced right femoral neck fracture. Head CT 01/21/22: IMPRESSION: Nonspecific periventricular white matter disease may be on posttreatment basis or reflect chronic small vessel sequelae. No posttraumatic or acute appearing abnormality. No findings suggestive of metastatic disease. Right hip x-ray 01/21/22: IMPRESSION: Subcapital right hip fracture. Physical Exam Physical Exam Vital Signs Vital Signs - First Documented 01/21/22 09:36 Temp 36.4 Pulse 103 Resp 17 B/P (MAP) 177/98 (124) Pulse Ox 95 O2 Delivery Nasal Cannula O2 Flow Rate 4.00 Capillary Refill : Less Than 3 Seconds Height, Weight, BMI Height: '" Weight: lbs. oz. kg; 23.40 BMI Method: General Appearance: No Apparent Distress, WD/WN HEENT: PERRL/EOMI, Normal ENT Inspection, Pharynx Normal Neck: Full Range of Motion, Normal Inspection Respiratory: Lungs Clear, Decreased Breath Sounds, Rhonci Cardiovascular: Regular Rate, Rhythm Gastrointestinal: Normal Bowel Sounds, No Organomegaly, Non Tender Neurologic/Psychiatric: Alert, No Motor/Sensory Deficits, Normal Mood/Affect A/P-Cardiology Admission Diagnosis Hip fracture Hypertension Hyperlipidemia Dementia Assessment/Plan Right-sided hip fracture. Orthopedic consult was called. Alzheimer's dementia. Progressive neuropathy and weakness. Probably will benefit from physical and Occupational Therapy after the hip management Hypertension, monitor blood pressure Hyperlipidemia History of rectal cancer, was intolerant to chemotherapy, sees treatment with chemo or radiation therapy. Did not want to have surgery. Has been managed by primary care physician, conservative management Questionable history of multiple mini strokes in the past according to the . He has been working with a neurologist at . No source of embolization was identified Will evaluate 2D echocardiogram and monitor on telemetry Diabetes mellitus, followed and managed by primary care physician Generalized weakness and debility. Preoperative cardiac evaluation, patient is considered at intermediate to high risk for perioperative cardiovascular complications, decision regarding surgery, risk versus benefit is deferred to the surgeon. ANDERSON WARNER MD Jan 22, 2022 10:52
--- NOTE | 2022-01-22 11:07 | Consultation - Ortho ---
Consult - Ortho Subjective Date of Exam 01/22/22 Chief Complaint Nondisplaced subcapital fracture right hip HPI/Events since last exam Mr. Cabral is a 76-year-old white male who fell yesterday morning onto his right side. He was seen in the emergency room at [place] where he was evaluated x-rayed and CT scanned and found to have a nondisplaced subcapital fracture of the right hip. He was admitted here at [facility] for his medical issues as well as for his hip fracture. He has had multiple falls recently fact a couple days ago he fell and had an x- ray at [facility] but they do not know the results. Then he was seen in the emergency room yesterday after another fall. His says he ambulates with a walker although he is still unsteady. He has neuropathy in his lower extremities. He has a history of rectal cancer and they discontinued treatment. He also has Alzheimer's. Medical, Surgical History Reviewed and no additions or changes Social History Reviewed and no additions or change Family History Reviewed and no additions or changes Review of Systems Reviewed and no additions or changes Allergies: Coded Allergies: [id number] Reductase Inhibitor (Verified Allergy, Unknown, 01/21/22) Home Meds Reported Medications Cyanocobalamin (Vitamin B-12) (Vitamin B-12) 2,500 Mcg Tab.subl, 2500 MCG SL DAILY, TAB 01/21/22 Zinc Gluconate (Zinc) 50 Mg Tablet, 50 MG PO DAILY, TAB 01/21/22 Ascorbate Calcium (Vitamin C) 500 Mg Tablet, 500 MG PO DAILY, TAB 01/21/22 Mirabegron (Myrbetriq) 50 Mg Tab.er.24h, 50 MG PO DAILY, TAB 01/21/22 Clopidogrel Bisulfate (Clopidogrel) 75 Mg Tablet, 75 MG PO DAILY, TAB 01/21/22 Sertraline HCl (Sertraline HCl) 100 Mg Tablet, 100 MG PO DAILY, TAB 01/21/22 Cholecalciferol (Vitamin D3) (Vitamin D3) 25 Mcg (1000 Unit) Tablet, 25 MCG PO DAILY, TAB 01/21/22 Tamsulosin HCl (Flomax) 0.4 Mg Cap, 0.4 MG PO DAILY, CAP 03/28/19 Ezetimibe (Zetia) 10 Mg Tablet, 10 MG PO HS, TAB 03/28/19 Cetirizine HCl/Pseudoephedrine (Cetirizine-Pse ER 5-120 mg Tab) 1 Each Tab.er.12h, 1 TAB PO DAILY, TAB 03/28/19 Gabapentin (Gabapentin) 100 Mg Capsule, 100 MG PO HS, CAP 03/28/19 Aspirin (Aspirin EC) 325 Mg Tablet.dr, 325 MG PO DAILY, TAB 03/28/19 Aspirin/Acetaminophen/Caffeine (Excedrin Extra Strength Caplet) 1 Each Tablet, 1-2 TAB PO BID PRN for PAIN-MILD, TAB 03/28/19 [place] Fruit/Zinc Picoli (Saw [place] 450 mg Capsule) 1 Each Capsule, 2 CAP PO DAILY, CAP 03/28/19 Multivit-Min/FA/Lycopene/Lut (Complete Multi 50+ Tablet) 1 Each Tablet, 1 TAB PO DAILY, TAB 03/28/19 Niacin (Inositol Niacinate) (Niacin 500 mg Capsule) 500 Mg Capsule, 500 MG PO HS, CAP 03/28/19 Amlodipine Besylate (Amlodipine Besylate) 5 Mg Tablet, 5 MG PO DAILY, TAB 03/28/19 Glipizide (Glipizide) 5 Mg Tablet, 5 MG PO DAILY, TAB 03/28/19 Metformin HCl (Metformin HCl) 1,000 Mg Tablet, 1000 MG PO BID, TAB 03/28/19 Terazosin HCl (Terazosin HCl) 2 Mg Capsule, 2 MG PO HS, CAP 03/28/19 Losartan Potassium (Losartan Potassium) 100 Mg Tablet, 100 MG PO DAILY, TAB 03/28/19 Alprazolam (Alprazolam) 0.5 Mg Tablet, 0.5 MG PO HS, TAB 03/28/19 Discontinued Scripts [Trospium Tablet] 20 MG TAB No Conflict Check, 20 MG PO DAILY@06,16, #30 TAB Prov:LENNY CAVANAUGH DO 04/01/19 Tolterodine Tartrate (Detrol LA) 4 Mg Cap, 4 MG PO HS, #30 CAP Prov:LENNY CAVANAUGH DO 04/01/19 Sennosides/Docusate Sodium (Senna-Time S Tablet) 1 Each Tablet, 2 EA PO BID, #60 TAB Prov:LENNY CAVANAUGH DO 04/01/19 Hydrocodone Bit/Acetaminophen (HYDROcodone/APAP 10/325 TABLET) 1 Each Tablet, 1- 2 EA PO Q4H PRN for PAIN-MODERATE, #30 TAB Prov:LENNY CAVANAUGH DO 04/01/19 Baclofen (Baclofen) 10 Mg Tablet, 10 MG PO Q8HR PRN for MUSCLE SPASM, #30 TAB Prov:LENNY CAVANAUGH DO 04/01/19 Objective Exam Constitutional: [] HEENT: [] Neck: [No pain with palpation or range of motion] Cardiovascular: [] Respiratory: [] Gastrointestinal: [] Genitourinary: [] Skin: [] Back/Spine: [No pain with palpation] Extremities: [Upper extremitiesno pain with range of motion. No deformity. No crepitation. He appears to have normal sensation with good cap refill and equal pulses. Lower extremitiespain with palpation and gentle range of motion right hip. No pain either knee or ankle. No pain left hip. He appears to have normal sensation with good cap refill and equal pulses in the lower extremities.] Neurologic: [] Psychiatric: [] Hematologic/lymphatic/immunologic: [] Vital Signs Vital Signs Date Time Temp Pulse Resp B/P (MAP) Pulse Ox O2 Delivery O2 Flow Rate FiO2 01/22/22 08:02 37.5 101 18 () 97 01/22/22 08:00 101 18 181/107 (131) 98 OxyMask 10.00 01/22/22 07:03 101 01/22/22 04:00 112 11 157/105 (124) 91 OxyMask 10.00 01/22/22 01:00 105 01/22/22 00:00 109 19 137/90 (106) 94 OxyMask 10.00 01/22/22 00:00 37.1 01/21/22 21:33 121 22 90 OxyMask 10.00 01/21/22 20:00 High Flow N/C 8.00 01/21/22 20:00 112 13 156/99 (118) 93 High Flow N/C 8.00 01/21/22 19:00 112 01/21/22 19:00 36.9 109 14 168/95 (119) 97 Nasal Cannula 01/21/22 18:00 103 9 94 OxyMask 7.00 01/21/22 17:01 101 21 170/102 (124) 93 OxyMask 7.00 01/21/22 16:02 98 10 161/96 (117) 94 OxyMask 7.00 01/21/22 15:22 93 OxyMask 7.00 01/21/22 15:06 97 18 131/84 (100) 91 01/21/22 15:00 36.8 98 14 160/99 (119) 92 OxyMask 7.00 01/21/22 15:00 37.2 98 17 131/84 (100) 92 OxyMask 7.00 01/21/22 15:00 91 OxyMask 7.00 01/21/22 14:59 97 01/21/22 14:05 107 19 142/80 94 Room Air I & O 01/22/22 06:59 Intake Total 3450 ml Output Total 1200 ml Balance 2250 ml Lab Results Laboratory Tests 01/21/22 11:49: Influenza Type A (RT-PCR) Not Detected, Influenza Type B (RT-PCR) Not Detected, SARS-CoV-2 RNA (RT-PCR) Not Detected 01/21/22 17:20: Activated Partial Thromboplast Time 139*H 01/22/22 01:09: Activated Partial Thromboplast Time 73H 01/22/22 05:05: White Blood Count 11.8H, Red Blood Count 3.63L, Hemoglobin 11.1L, Hematocrit 33L , Mean Corpuscular Volume 91, Mean Corpuscular Hemoglobin 31, Mean Corpuscular Hemoglobin Concent 34, Red Cell Distribution Width 14.6H, Platelet Count 224, Mean Platelet Volume 9.9, Sodium Level 137, Potassium Level 3.8, Chloride Level 105, Carbon Dioxide Level 19L, Anion Gap 13, Blood Urea Nitrogen 20H, Creatinine 1.22, Estimat Glomerular Filtration Rate 61, BUN/Creatinine Ratio 16, Glucose Level 160H, Calcium Level 9.1, Corrected Calcium 9.4, Total Bilirubin 1.1H, Aspartate Amino Transf (AST/SGOT) 13, Alanine Aminotransferase (ALT/SGPT) 20, Alkaline Phosphatase 86, Total Protein 6.3L, Albumin 3.6 01/22/22 08:15: Activated Partial Thromboplast Time 55H Imaging X-rays were reviewed which shows degenerative changes involving the right femoral head and acetabulum. There is a suggestion of a nondisplaced subcapital fracture that is confirmed with CT scan. Assessment and Plan Assessment Nondisplaced subcapital fracture right hip Problem List Nondisplaced subcapital fracture right hip Plan The above was discussed with the patient who really does not understand what were talking about. Most of the discussion was with his . She will be making the decisions but also consulting with her family. I discussed treatment options including nonoperative treatment. If treated nonoperatively the patient would be nonweightbearing but could be bed to chair. It would be difficult keeping him nonweightbearing due to his inability to cooperate secondary to Alzheimer's. If it did become displaced then he would require surgery most likely a hemiarthroplasty. Due to his rectal cancer his life expectancy is not long enough where he would benefit from a total hip. Operative treatment was discussed including fixation with screws or femoral neck system or proceeding with a bipolar hemiarthroplasty. Again total hip was discussed but is not an option. If treated with screws or a femoral neck system he would not be able to be full weightbearing for several weeks and again he would have difficulty cooperating with this so probably just bed to chair. We did a hemiarthroplasty he could be up ambulating with a walker full weightbearing. I explained to his that hemiarthroplasty would be a big procedure with increased risk of blood loss infection DVT and prolonged anesthesia versus short anesthesia and short procedure with screws and or f emoral neck system. She wants him to be able to get out of bed and ambulate and get him back to where he was before he fell. She understands that some patients still struggle with recovery and do not get back to the level they were before the fall or surg leni. All thorough he has increased medical risks and may not survive the surgery or immediate postop period. So after discussing the treatment options, risks and complications she would like to proceed with a hemiarthroplasty. She wants to discuss this further with her family and would prefer we wait till tomorrow to do the procedure. So I have rescheduled him from today to tomorrow. Plan cemented bipolar hemiarthroplasty. In addition to Dr. Grimes patient will be seen by cardiology as well for further work-up. Final Diagonsis Nondisplaced subcapital fracture right hip Level of the visit: Level 3 TEMI CHAVEZ MD Jan 22, 2022 11:07
[2022-01-22] MEDS ORDERED: PREG25CA19 PO (11:23)
[2022-01-22] MEDS ORDERED: MULT-1136 PO (11:23)
[2022-01-22] MEDS ORDERED: TADA5TAB13 PO (11:23)
[2022-01-22] MEDS ORDERED: OMEP20CA18 PO (11:23)
[2022-01-22] MEDS: LORATADINE (CLARITIN) 10 MG TAB PO SCH (12:55)
[2022-01-22] MEDS: eZETimibe 10 MG (ZETIA) TABLET PO SCH (13:56)
--- NOTE | 2022-01-22 14:40 | ST Dysphagia Evaluation ---
Speech Evaluation-General Medical Diagnosis Acute Respiratory Failure Onset Date: Jan 22, 2022 Therapy Diagnosis Therapy Diagnosis: Oropharyngeal Dysphagia Precautions Precautions: Fall, Pressure Ulcer, Aspiration Precautions/Isolations: Aspiration, Fall Prevention, Standard Precautions, Pressure Ulcer Referral Referring Physician: Dr. Grimes Reason for Referral: Evaluation/Treatment Medical History Pertinent Medical History: CVA, HTN Current History The patient is a 76 year-old male with a past medical history of Alzheimer's dementia, neuropathy, DM, CAD, and rectal cancer, who was brought [facility] following a fall. Reviewed History: Yes Speech PLF/Current-Dysphagia Prior Level of Function The patient was unable to provide prior P.O. intake history to the clinician. The patient's was present who stated the patient consumes a regular diet with thin liquids at home. Per patient's , she believes the patient may have began coughing on thin liquids approximately one month prior. Subjective The patient was seated upright in bed, intermittently awake upon entrance to his room by the clinician. The patient greeted the clinician appropriately and was agreeable to participation in the clinical bedside swallowing evaluation. The patient remained fatigued throughout the evaluation, requiring consistent verbal prompts from the clinician and the patient's for appropriate alertness and participation. Cognitive Status Patient Orientation: Person, Confused Oral Motor Skills Dentition: Natural (Somewhat sparse.) Current Food Consistancy: Regular, Thin Liquids Ability to Follow Directions: Fair Oral Expression Ability: Moderate Impairment Voice Voice Phonatory-Based Quality: Weak, Glottal Nam Voice Pitch: Normal Voice Loudness: Mildly Soft/Quiet Face Facial Symmetry: Symmetrical Oral-Facial Assessment Oral-Facial Dentition: Normal Labial Seal Description: Weak Smile: Reduced ROM Lingual Protrusion: Normal Lingual ROM: Normal Lingual Strength: Normal Volitional Dry Swallow: Yes Voluntary Cough: Yes (Weak, unproductive.) Can Clear Throat Volitionally: Yes Productive Cough: No Productive Throat Clear: No Dysphagia Evaluation Consistencies Presented: Regular, Thin Liquid, Elbert Thick Liquid, Pureed Oral Phase: Reduced Oral Transit The patient demonstrated oral holding behaviors with all P.O. boluses provided, requiring intermittent verbal prompting from the clinician for initiation of posterior transfer. Prolonged and effortful mastication was appreciated with dry, hard solid consistencies. Laryngeal elevation was present upon palpation. The patient did not display s/s of suspected aspiration with thin liquid via teaspoon, nectar-thick liquid via cup edge, puree, or solid consistencies. The patient displayed a delayed, rigorous cough with thin liquids via straw. Additionally, the patient demonstrated an increasingly wet vocal quality with P.O. trials of thin liquid via cup edge. Dietary Recommendations: Mechanical Soft Liquid Recommendations: Elbert Consistancy Recommendations: - Dysphagia two consistency diet with mildly thick (nectar-thick) liquids, as tolerated. - Fully upright and alert for P.O. intake. - 1:1 feeding assistance and supervision. The dairy farm supervisor should provide verbal prompts as needed if oral holding behaviors are present. - Small bites and sips. - No straws. - Crush medication and place in puree for administration. - Monitor for s/s of suspected aspiration with P.O. intake. If demonstrated, contact speech pathology. The clinician discussed the recommendations in depth with the patient and the patient's following the evaluation. The patient's was provided with information regarding thickening products and how to complete the thickening procedure. The RN was notified of the results. Dysphagia Evaluation Summary The patient demonstrated oropharyngeal dysphagia characterized by decreased lingual coordination and poor airway protection in the presence of bolus material. Speech Short Term Goals Short Term Goals Short Term Goals 1. The patient's family and staff will follow swallowing strategies with 90% accuracy, independently. Speech Control Inspector Goals Longterm Goals 1. The patient will tolerate the least restrictive diet consistency without s/s of suspected aspiration. Time Frame: One Week. Speech-Plan Treatment Plan Speech Therapy Treatment Plan: Continue Plan of Care Treatment Duration: Jan 29, 2022 Frequency: 2 times per week Estimated Hrs Per Day: .25 hour per day Rehab Potential: Fair Safety Risks/Education Teaching Recipient: Patient, Significant Other Teaching Methods: Discussion Response to Teaching: Verbalize Understanding (The patient's .) Education Topics Provided: Results, Recommendations, Plan of Care, Swallowing Strategies, S/s of Suspected Aspiration Time Speech Therapy Time In: 13:15 Speech Therapy Time Out: 13:45 Total Billed Time: 30 Billed Treatment Time 1ROBBIN DYST No LOY, ELIZABETH ST Jan 22, 2022 14:40
[2022-01-22] MEDS: ALPRAZolam 0.5 MG (XANAX) TAB PO SCH (21:09)
[2022-01-22] MEDS: TERAZOSIN 1 MG CAP (HYTRIN) PO SCH (21:09)
[2022-01-22] MEDS: HYDROcodone/APAP 5 MG/325 MG (LORTAB) TAB PO PRN ×2 (21:10→21:22)
[2022-01-22] MEDS: NIACIN ER (NIASPAN) 500 MG TAB PO SCH (22:41)
[2022-01-22] MEDS: PREGABALIN 25 MG (LYRICA) CAPSULE PO SCH (22:41)
[2022-01-23] VITALS (25 sets, daily range): BP systolic 110–207; BP diastolic 74–124
[2022-01-23 06:04] LABS: HEMATOCRIT 31 % (40-54); MEAN CORPUSCULAR HEMOGLOBIN 31 pg (25-34); MEAN CORPUSCULAR HGB CONC 35 g/dL (32-36); MEAN CORPUSCULAR VOLUME 88 fL (80-99); MEAN PLATELET VOLUME 9.4 fL (9.0-12.2); PLATELET COUNT 202 10^3/uL (130-400); WHITE BLOOD COUNT 8.7 10^3/uL (4.3-11.0)
[2022-01-23 06:18] LABS: ALBUMIN 3.5 GM/DL (3.2-4.5); POTASSIUM 3.7 MMOL/L (3.6-5.0)
[2022-01-23 06:19] LABS: CALCIUM 9.5 MG/DL (8.5-10.1)
[2022-01-23 06:20] LABS: TOTAL PROTEIN 6.4 GM/DL (6.4-8.2)
[2022-01-23 06:22] LABS: BILIRUBIN,TOTAL 1.4 MG/DL (0.1-1.0)
[2022-01-23 06:24] LABS: CREATININE SERUM 1.01 MG/DL (0.60-1.30)
--- NOTE | 2022-01-23 07:45 | Cardiology Progress Note ---
Subjective Date Seen by Provider: Jan 23, 2022 Time Seen by Provider: 07:44 Subjective/Events-last exam Patient is laying down in bed, still having generalized weakness and pain in his hip. Review of Systems General: No Chills, No Night Sweats; Fatigue, Malaise; No Appetite, No Other HEENT: No Head Aches, No Visual Changes, No Eye Pain, No Ear Pain, No Dysphasia, No Sinus Congestion, No Post Nasal Drip, No Sore Throat, No Other Pulmonary: Dyspnea; No Cough, No Pleuritic Chest Pain, No Other Cardiovascular: No: Chest Pain, Palpitations, Orthopnea, Paroxysmal Noc. Dyspnea, Edema, Lt Headedness, Other Focused Exam Lactate Level 01/21/22 09:25: Lactic Acid Level 1.39 Objective-Cardiology Exam Last Set of Vital Signs Vital Signs 01/23/22 03:42 Temp 36.9 Pulse 101 Resp 15 B/P (MAP) 177/97 (123) Pulse Ox 94 O2 Delivery OxyMask O2 Flow Rate 10.00 I&O Intake and Output 01/23/22 00:00 Intake Total 1650 ml Output Total 2000 ml Balance -350 ml Intake Oral 400 ml IV Total 1250 ml Output Urine Total 2000 ml General: Alert, Cooperative, No Acute Distress HEENT: Atraumatic, PERRLA Neck: Supple Lungs: Clear to Auscultation Heart: Regular Rate, Normal S1, Normal S2 Abdomen: Normal Bowel Sounds, Soft Extremities: No Clubbing, No Edema Skin: No Rashes Neuro: Normal Speech, Other (oriented to self, knows he is in the hospital but isn't able to state why) Psych/Mental Status: Mood NL Results Lab Laboratory Tests 01/23/22 05:30 A/P-Cardiology Admission Diagnosis Hip fracture Hypertension Hyperlipidemia Dementia Assessment/Plan Right-sided hip fracture. Dr. Valdes was consulted, possible surgery today. Alzheimer's dementia. Progressive neuropathy and weakness. Probably will benefit from physical and Occupational Therapy after the hip management Hypertension, monitor blood pressure 2D echocardiogram was done showing normal LV size with ejection fraction 60 to 65%, calcified mitral valve, pulmonary artery pressure 40 to 45 mmHg Hyperlipidemia, monitor lipids History of rectal cancer, was intolerant to chemotherapy, sees treatment with chemo or radiation therapy. Did not want to have surgery. Has been managed by primary care physician, conservative management Questionable history of multiple mini strokes in the past according to the . He has been working with a neurologist at . No source of embolization was identified Will evaluate 2D echocardiogram and monitor on telemetry Diabetes mellitus, followed and managed by primary care physician Generalized weakness and debility. Preoperative cardiac evaluation, patient is considered at intermediate to high risk for perioperative cardiovascular complications, decision regarding surgery, risk versus benefit is deferred to the surgeon. ANDERSON WARNER MD Jan 23, 2022 07:45
[2022-01-23] MEDS: TAMSULOSIN 0.4 MG (FLOMAX) CAP PO SCH (08:58)
[2022-01-23] MEDS: LOSARTAN 100 MG (COZAAR) TABLET PO SCH (08:58)
[2022-01-23] MEDS: PANTOPRAZOLE 20 MG TABLET (PROTONIX) PO SCH (08:58)
[2022-01-23] MEDS: LORATADINE (CLARITIN) 10 MG TAB PO SCH (08:58)
[2022-01-23] MEDS: PREGABALIN 25 MG (LYRICA) CAPSULE PO SCH ×2 (08:58→20:45)
[2022-01-23] MEDS: tadalafiL 5 MG TABLET (NON-FORMULARY) PO SCH (08:59)
[2022-01-23] MEDS: eZETimibe 10 MG (ZETIA) TABLET PO SCH (08:59)
[2022-01-23] MEDS: VITAMIN D3 25 MCG (1,000 UNITS) TABLET PO SCH (08:59)
[2022-01-23] MEDS: PSEUDOEPHEDRINE HCL 30 MG (SUDAFED) TAB PO SCH ×2 (08:59→20:45)
--- NOTE | 2022-01-23 08:59 | Progress Note - Ortho ---
Progress Note Subjective Date of Exam 01/23/22 Chief Complaint Subcapital fracture right hip HPI/Events since last exam Mr. Cabral is scheduled for surgery at 0930 this morning for cemented bipolar hemiarthroplasty of the right hip for a nondisplaced subcapital fracture. Treatment options were discussed with the family and they want to proceed with hemiarthroplasty versus screw or femoral neck system fixation versus nonop erative treatment. They understand the procedure risk complications and would like to proceed Review of Systems Reviewed and no additions or changes Allergies: Coded Allergies: [id number] Reductase Inhibitor (Verified Allergy, Unknown, 01/21/22) Home Meds Reported Medications Omeprazole (Omeprazole) 20 Mg Capsule.dr, 20 MG PO DAILY, CAP 01/22/22 Tadalafil (Tadalafil) 5 Mg Tablet, 5 MG PO DAILY, TAB 01/22/22 Pregabalin (Pregabalin) 25 Mg Capsule, 25 MG PO BID, CAP 01/22/22 Multivitamin (Multivitamin) 1 Each Tablet, 1 EACH PO DAILY, TAB 01/22/22 Cyanocobalamin (Vitamin B-12) (Vitamin B-12) 2,500 Mcg Tab.subl, 2500 MCG SL DAILY, TAB 01/21/22 Zinc Gluconate (Zinc) 50 Mg Tablet, 50 MG PO DAILY, TAB 01/21/22 Ascorbate Calcium (Vitamin C) 500 Mg Tablet, 500 MG PO DAILY, TAB 01/21/22 Mirabegron (Myrbetriq) 50 Mg Tab.er.24h, 50 MG PO HS, TAB 01/21/22 Clopidogrel Bisulfate (Clopidogrel) 75 Mg Tablet, 75 MG PO 1500, TAB 01/21/22 Sertraline HCl (Sertraline HCl) 100 Mg Tablet, 100 MG PO 1500, TAB 01/21/22 Cholecalciferol (Vitamin D3) (Vitamin D3) 25 Mcg (1000 Unit) Tablet, 25 MCG PO DAILY, TAB 01/21/22 Tamsulosin HCl (Flomax) 0.4 Mg Cap, 0.4 MG PO DAILY, CAP 03/28/19 Ezetimibe (Zetia) 10 Mg Tablet, 10 MG PO DAILY, TAB 03/28/19 Cetirizine HCl/Pseudoephedrine (Cetirizine-Pse ER 5-120 mg Tab) 5 Mg-120 Mg T ab.er.12h, 1 TAB PO Q12H, TAB 03/28/19 Aspirin/Acetaminophen/Caffeine (Excedrin Extra Strength Caplet) 1 Each Tablet, 1-2 TAB PO BID PRN for PAIN-MILD, TAB 03/28/19 [place] Fruit/Zinc Picoli ([place] 450 mg Capsule) 450 Mg-15 Mg Capsule, 1 CAP PO DAILY, CAP 03/28/19 Niacin (Inositol Niacinate) (Niacin 500 mg Capsule) 500 Mg Capsule, 500 MG PO HS, CAP 03/28/19 Amlodipine Besylate (Amlodipine Besylate) 5 Mg Tablet, 5 MG PO 1500, TAB 03/28/19 Glipizide (Glipizide) 5 Mg Tablet, 5 MG PO DAILY, TAB 03/28/19 Metformin HCl (Metformin HCl) 1,000 Mg Tablet, 1000 MG PO BID, TAB 03/28/19 Terazosin HCl (Terazosin HCl) 2 Mg Capsule, 2 MG PO HS, CAP 03/28/19 Losartan Potassium (Losartan Potassium) 100 Mg Tablet, 100 MG PO DAILY, TAB 03/28/19 Alprazolam (Alprazolam) 0.5 Mg Tablet, 0.5 MG PO HS, TAB 03/28/19 Discontinued Reported Medications Gabapentin (Gabapentin) 100 Mg Capsule, 100 MG PO HS, CAP 03/28/19 Aspirin (Aspirin EC) 325 Mg Tablet.dr, 325 MG PO DAILY, TAB 03/28/19 Multivit-Min/FA/Lycopene/Lut (Complete Multi 50+ Tablet) 1 Each Tablet, 1 TAB PO DAILY, TAB 03/28/19 Discontinued Scripts [Trospium Tablet] 20 MG TAB No Conflict Check, 20 MG PO DAILY@06,16, #30 TAB Prov:LENNY CAVANAUGH DO 04/01/19 Tolterodine Tartrate (Detrol LA) 4 Mg Cap, 4 MG PO HS, #30 CAP Prov:LENNY CAVANAUGH DO 04/01/19 Sennosides/Docusate Sodium (Senna-Time S Tablet) 1 Each Tablet, 2 EA PO BID, #60 TAB Prov:LENNY CAVANAUGH DO 04/01/19 Hydrocodone Bit/Acetaminophen (HYDROcodone/APAP 10/325 TABLET) 1 Each Tablet, 1- 2 EA PO Q4H PRN for PAIN-MODERATE, #30 TAB Prov:LENNY CAVANAUGH DO 04/01/19 Baclofen (Baclofen) 10 Mg Tablet, 10 MG PO Q8HR PRN for MUSCLE SPASM, #30 TAB Prov:LENNY CAVANAUGH DO 04/01/19 Objective Exam Constitutional: [] HEENT: [] Neck: [] Cardiovascular: [] Respiratory: [] Gastrointestinal: [] Genitourinary: [] Skin: [] Back/Spine: [] Extremities: [Pain with palpation gentle range of motion right hip] Neurologic: [] Psychiatric: [] Hematologic/lymphatic/immunologic: [] Vital Signs Vital Signs Date Time Temp Pulse Resp B/P (MAP) Pulse Ox O2 Delivery O2 Flow Rate FiO2 01/23/22 07:00 106 01/23/22 03:42 36.9 101 15 177/97 (123) 94 OxyMask 10.00 01/23/22 01:00 102 01/23/22 00:00 100 16 161/107 (119) 92 OxyMask 10.00 01/22/22 23:57 37.5 106 17 168/101 (123) 92 OxyMask 10.00 01/22/22 23:12 107 20 168/101 (123) 89 OxyMask 10.00 01/22/22 20:00 36.6 01/22/22 20:00 101 8 153/101 (127) 95 High Flow N/C 10.00 01/22/22 20:00 High Flow N/C 10.00 01/22/22 19:00 100 01/22/22 16:00 96 10 142/88 (106) 98 OxyMask 10.00 01/22/22 13:00 97 11 157/88 (111) 94 OxyMask 10.00 01/22/22 12:33 37.3 98 17 157/88 (111) 97 01/22/22 12:25 94 01/22/22 12:00 97 11 164/79 (107) 94 OxyMask 10.00 01/22/22 11:00 OxyMask 10.00 01/22/22 09:00 High Flow N/C 8.00 I & O 01/23/22 06:59 Intake Total 650 ml Output Total 1900 ml Balance -1250 ml Lab Results Laboratory Tests 01/22/22 16:40: Activated Partial Thromboplast Time 64H 01/22/22 22:35: Activated Partial Thromboplast Time 57H 01/23/22 05:30: Activated Partial Thromboplast Time 63H, White Blood Count 8.7, Red Blood Count 3.54L, Hemoglobin 11.0L, Hematocrit 31L, Mean Corpuscular Volume 88, Mean Corpuscular Hemoglobin 31, Mean Corpuscular Hemoglobin Concent 35, Red Cell Distribution Width 14.2, Platelet Count 202, Mean Platelet Volume 9.4, Sodium Level 131L, Potassium Level 3.7, Chloride Level 101, Carbon Dioxide Level 21, Anion Gap 9, Blood Urea Nitrogen 15, Creatinine 1.01, Estimat Glomerular Filtration Rate 77, BUN/Creatinine Ratio 15, Glucose Level 178H, Calcium Level 9.5, Corrected Calcium 9.9, Total Bilirubin 1.4H, Aspartate Amino Transf (AST/SGOT) 13, Alanine Aminotransferase (ALT/SGPT) 21, Alkaline Phosphatase 88, Total Protein 6.4, Albumin 3.5 Microbiology 01/21/22 Urine Culture - Final, Complete Gram Pos Mixed Bacterial Denia 01/21/22 Blood Culture - Preliminary, Resulted Gram Positive Cocci in Cluster Assessment and Plan Assessment For surgery today Problem List Nondisplaced subcapital fracture right hip Plan Surgery for cemented bipolar hemiarthroplasty right hip Final Diagonsis Nondisplaced subcapital fracture right hip Level of the visit: Level 3 Focused Exam Lactate Level 01/21/22 09:25: Lactic Acid Level 1.39 TEMI CHAVEZ MD Jan 23, 2022 08:59
[2022-01-23] MEDS ORDERED: ZINC PICOLI PO SCH (09:00)
[2022-01-23] MEDS ORDERED: [UNRECOGNIZED DRUG - OTHER] PO SCH (09:00)
[2022-01-23] MEDS ORDERED: SAW PALMETTO FRUIT PO SCH (09:00)
[2022-01-23] MEDS ORDERED: SEVOFLURANE (ULTANE) 15 ML INHAL SOLN ONE ×2 (09:21→11:17)
[2022-01-23] MEDS ORDERED: fentaNYL INJ 100 MCG/2 ML AMP ONE (09:21)
[2022-01-23] MEDS ORDERED: LIDOCAINE PF 2% 5 ML (XYLOCAINE) VIAL ONE (09:21)
[2022-01-23] MEDS ORDERED: ONDANSETRON 4 MG/2 ML (SDV) Z0FRAN ONE (09:21)
[2022-01-23] MEDS ORDERED: proPOfol 200 MG/20 ML (DIPRIVAN) VIAL IV ONE (09:21)
[2022-01-23] MEDS ORDERED: ETOMIDATE IV SOLN 20 MG/10 ML VIAL ONE (09:27)
[2022-01-23] MEDS: LACTATED RINGERS 1,000 ML IV PRN ×4 (09:30→20:47)
[2022-01-23] MEDS ORDERED: ROCURONIUM 50 MG/5 ML (ZEMURON) VIAL IV ONE ×2 (09:59→11:15)
[2022-01-23] MEDS ORDERED: SUCCINYLCHOLINE INJ 100 MG/5 ML SYR/VIAL ONE (10:07)
[2022-01-23] MEDS ORDERED: ceFAZolin INJECTION 2,000 MG ONE (10:11)
[2022-01-23] MEDS ORDERED: HYDROmorphone 2 MG/ML VIAL (DILAUDID) ONE (10:18)
[2022-01-23] MEDS ORDERED: MIDAZOLAM 2 MG/2 ML (VERSED) VIAL ONE (11:06)
[2022-01-23] MEDS ORDERED: NEO/POLY/BAC (NEOSPORIN) OINT 15 GM TUBE ONE (11:13)
--- NOTE | 2022-01-23 12:02 | Operative Report - Ortho ---
Operative Report Surgeon (s)/Lithographers Printer (s) Surgeon TEMI CHAVEZ MD Lithographers Printer n/a Pre-Operative Diagnosis Nondisplaced subcapital fracture right hip Post-Operative Diagnosis same Operative Report Date of Procedure: Jan 23, 2022 Name of Procedure Performed: Cemented bipolar hemiarthroplasty right hip using a #3 cemented stem with a neutral neck and a 53 mm bipolar head Description & Findings The patient was seen preoperatively and the right leg was marked. I discussed the procedure risk complications with the family and they would like to proceed with a cemented bipolar hemiarthroplasty of the right hip. The patient was taken to the preoperative area and then brought into the OR in his hospital bed. After administration of general anesthesia he was placed in the lateral decubitus position with the right side up on the pegboard. All pegs were well padded as well as bony prominences. The patient was noted to have some superficial skin tears and redness around the sacrum as well as both heels. He was given Ancef 2 g IV. The right hip and leg were then prepped and draped in the usual sterile manner. An incision was made over the right hip distally in line with the femoral shaft and proximally and slightly posterior. This taken down through subtenons tissue. Bleeders were cauterized. Dissection was carried down to the gluteal fascia and iliotibial band which were split in line with the skin incision. These were then retracted with a Charnley retractor. Leg was then flexed and internally rotated and the soft tissue was taken off the external rotators. The piriformis was tagged and released off the posterior aspect of the greater trochanter as well as the remaining external rotators. The quadratus for Francisco was also slightly detached. Capsule is intact and teed. The head was removed with a corkscrew. This measured 452-1/2 mm. A 53 mm head was selected. The neck was trimmed to about 12 mm above the lesser trochanter. The acetabulum was inspected and irrigated noted to be free of debris. The trial head was inserted at 53 mm and found to be stable and fit well. The head was removed. The proximal femur was then broached with T- handle's and reamers up to a #3 stem. There is #3 broach was left in place and the hip was trialed with a 53 mm head with a neutral neck and found to fit well. The hip was stable. No pistoning. Hip was then dislocated and the trials were removed. Cement plug was placed approximately 1.5 cm distal to the tip of the broach. The canal was irrigated and suction. Cement was mixed and inserted with a cement gun which was pressurized proximally. The #3 stem was then inserted and about 15 degrees of anteversion. Excess cement was removed with curettes. After the cemented hardened no debris was noted around the proximal femur and the acetabulum. This point acetabulum was irrigated. Bipolar head was inserted on the neck and tapped into place. The hip was reduced and again found to be stable with full range of motion with no pistoning. This point the wound was irrigated. The capsule was closed with #1 Vicryl. 2 drill holes were made through the trochanter and suture from the capsule was placed through 1 and from the piriformis to the other. Hip was then placed in neutral position and the suture was tied over the greater trochanter. Wound was again irrigated with pressurized normal saline. The iliotibial band and gluteal fascia were closed with #1 Vicryl awnnai-wl-jyoly sutures. The wound was then again irrigated and the subtenons tissue was closed with 2-0 Vicryl and the skin with skin clips. Wound was dressed with antibiotic ointment Adaptic 4 x 4's and ABDs and then taped in position. An abduction pillow was placed between the legs. The patient was then transferred to his hospital bed. He was left intubated and transferred to ICU due to his cardiac and respiratory issues. X-rays will be obtained in ICU. The patient tolerated procedure well with no complications. No drains. The head was sent to pathology for evaluation since patient does have a history of rectal cancer. Total blood loss was 250 mL, replacement none's, drains none n/a Anesthesia Type General Specimen(s) collected/removed Femoral head TEMI CHAVEZ MD Jan 23, 2022 12:02
--- NOTE | 2022-01-23 12:22 | Speech Therapy Progress Note ---
Therapy Progress Note As the patient's level of care increased to the ICU floor and he is currently requiring mechanical ventilation, ST will sign off at this time. Please provide new orders when/if the patient is appropriate for services. Thank you. GINA SELF Jan 23, 2022 12:22
--- NOTE | 2022-01-23 12:28 | Progress Note ---
Subjective Subjective/Events-last exam Pt seen at 0850, shortly before surgery. Feeling okay, states ready for surgery. Focused Exam Lactate Level 01/21/22 09:25: Lactic Acid Level 1.39 Objective Exam Last Set of Vital Signs Vital Signs Date Time Temp Pulse Resp B/P (MAP) Pulse Ox O2 Delivery O2 Flow Rate FiO2 01/23/22 12:05 Mechanical Ventilator 01/23/22 12:05 18 201/112 (141) 100 01/23/22 11:51 37.0 01/23/22 11:48 87 100 01/23/22 10:29 10.00 Capillary Refill : Less Than 3 Seconds I&O Intake and Output 01/23/22 00:00 Intake Total 1650 ml Output Total 2000 ml Balance -350 ml Intake Oral 400 ml IV Total 1250 ml Output Urine Total 2000 ml General: Alert, No Acute Distress Lungs: Clear to Auscultation Heart: Other (S4 present) Abdomen: Normal Bowel Sounds, Soft Psych/Mental Status: Mood NL Results/Procedures Lab Laboratory Tests 01/22/22 16:40: Activated Partial Thromboplast Time 64H 01/22/22 22:35: Activated Partial Thromboplast Time 57H 01/23/22 05:30: Activated Partial Thromboplast Time 63H, White Blood Count 8.7, Red Blood Count 3.54L, Hemoglobin 11.0L, Hematocrit 31L, Mean Corpuscular Volume 88, Mean Corpuscular Hemoglobin 31, Mean Corpuscular Hemoglobin Concent 35, Red Cell Distribution Width 14.2, Platelet Count 202, Mean Platelet Volume 9.4, Sodium Level 131L, Potassium Level 3.7, Chloride Level 101, Carbon Dioxide Level 21, Anion Gap 9, Blood Urea Nitrogen 15, Creatinine 1.01, Estimat Glomerular Filtration Rate 77, BUN/Creatinine Ratio 15, Glucose Level 178H, Calcium Level 9.5, Corrected Calcium 9.9, Total Bilirubin 1.4H, Aspartate Amino Transf (AST/SGOT) 13, Alanine Aminotransferase (ALT/SGPT) 21, Alkaline Phosphatase 88, Total Protein 6.4, Albumin 3.5 Microbiology 01/21/22 Urine Culture - Final, Complete Gram Pos Mixed Bacterial Denia 01/21/22 Blood Culture - Preliminary, Resulted Gram Positive Cocci in Cluster Radiology CXR 01/21/22: IMPRESSION: Mild central vascular congestion and chronic appearing increased interstitial markings. Questionable small nodular density over the right perihilar region. This would appear to correspond to a nodule seen on the chest CT of 05/17/2021. CTA chest/abd/pelvis 01/21/22: IMPRESSION: 1. No acute aortic syndrome. 2. Dilated abdominal aorta measuring 3.1 x 3.0 cm and dilated left common iliac artery measuring 2.4 cm. 3. Nondisplaced right femoral neck fracture. Head CT 01/21/22: IMPRESSION: Nonspecific periventricular white matter disease may be on posttreatment basis or reflect chronic small vessel sequelae. No posttraumatic or acute appearing abnormality. No findings suggestive of metastatic disease. Right hip x-ray 01/21/22: IMPRESSION: Subcapital right hip fracture. Assessment/Plan Assessment/Plan (1) Closed right hip fracture Status: Acute Assessment & Plan: Orthopedic Surgery consulted, plan to go to OR today Qualifiers: Qualified Codes: S72.001A - Fracture of unspecified part of neck of right femur, initial encounter for closed fracture (2) Acute respiratory failure with hypoxia Status: Acute Assessment & Plan: Uncertain etiology, but requiring up to 10 lpm supplemental oxygen. Started on heparin drip for possible PE, unfortunately CTA order did not obtain the PE scan desired. BNP and troponin nml. Echo and Cardiology consult pending for possible cardiac disease. 01/23- echo with grade 1 diastolic dysfunction, normal EF, no right heart strain noted. Appreciate Cardiology recommendations. Had hoped to get CTA chest after a period of time to avoid repeat contrast use close to previous, but his creatinine is trending up, so still concerning, consider V/Q scan. (3) Diabetes mellitus Status: Chronic Assessment & Plan: Hold home meds. Sliding scale insulin, diabetic diet. Qualifiers: Qualified Codes: E11.65 - Type 2 diabetes mellitus with hyperglycemia (4) Dementia Status: Chronic (5) Hyperlipidemia Assessment & Plan: Resume home ezetemibe and niacin. Can't tolerate statins. (6) Hypertension Assessment & Plan: Resume home meds Qualifiers: Qualified Codes: I10 - Essential (primary) hypertension (7) BPH (benign prostatic hyperplasia) Status: Chronic Assessment & Plan: Resume home meds Qualifiers: (8) DVT prophylaxis Status: Acute Assessment & Plan: Heparin drip at treatment dose held prior to surgery. ALIYAH TRIPATHI MD Jan 23, 2022 12:28
[2022-01-23] MEDS ORDERED: PROPOFOL DRIP (ICU) 100 ML IV ONE (12:30)
[2022-01-23] MEDS: fentaNYL INJ 100 MCG/2 ML AMP IVP PRN ×4 (12:34→22:38)
--- NOTE | 2022-01-23 12:39 | Diagnostic Imaging Report ---
INDICATION: Postop right hip arthroplasty Single AP view right hip obtained at 1203 p.m. Right hip prosthesis appears in good alignment. There is no sign of fracture or device loosening. There is no unexpected foreign body post surgery. IMPRESSION: Well aligned right hip prosthesis with no unexpected foreign body post surgery. Dictated by: Dictated on workstation # [id number]
--- NOTE | 2022-01-23 12:43 | Diagnostic Imaging Report ---
CLINICAL INDICATION: Patient right foot surgery intubated. Orogastric tube placement. EXAM: Portable chest x-ray upright view. COMPARISON: Chest x-ray dated 01/21/2022. FINDINGS: There is interval placement of ET tube seen in good position with tip roughly at the lower T5 vertebral body level. Orogastric tube is seen which appears looped 180 degrees in the region of the mediastinum. Tip is seen overlying the upper mediastinal region. There is interval progression of patchy airspace opacities and curvilinear opacities involving the right upper lobe. There is no pleural effusion or pneumothorax. Pulmonary vasculature and cardiac silhouette within normal limits. IMPRESSION: 1: Interval placement of orogastric tube which is looped 180 degrees overlying the mediastinal region. This tube should be repositioned. 2: ET tube is placed in interim, as described above. 3: There is interval progression of atelectasis or infiltrate involving the right upper lobe and right midlung field region. 4: Otherwise, the remainder of this exam shows no significant interval change compared to the prior study of comparison Results of this report, regarding orogastric tube placement, was discussed with Chelsy nurse taking care of the patient, via the telephone on 01/23/2022 at 1236 hours. Dictated by: Dictated on workstation # [id number]
[2022-01-23] MEDS: PROPOFOL DRIP (ICU) 100 ML IV SCH ×2 (12:48→17:54)
--- NOTE | 2022-01-23 13:00 | Tele-ICU Consult ---
History of Present Illness History of Present Illness Date Seen by Provider: Jan 23, 2022 Time Seen by Provider: 13:00 Date of Admission (Tele-ICU Physician , consultation) Available chart/ vitals / labs / Images reviewed H&P is from ER notes Patient's information available about PMH, Shx, Fhx allergy reviewed inEMR. ROS as per chart and RN report Now in ICU, hemodynamically stable Video assessment done using teleICU camera, rest of exam as per RN Discussed with RN. VENT SETTINGS and ABG reviewed Sedation: RASS Not candidate for SBTContraindications : Cardiovascular Stability /Sedation Score / FI02/PEEP / ABG / CXR Consultants: gisel brooks Hospital course: (01/21) 76M admitted to the floor s/p fall with right femoral neck fracture (01/23) pt tx from OR s/p Cemented bipolar hemiarthroplasty of the right hip, pt remains intubated A/P Acute resp failure - intubated 01/23 after Sx - presented on admission : needed 4 l in ER , 10 L O2 prior to Sx -PE suspected - CTA was not PE protocol , no huge clots seen , no right side strain on ECHO - heparin gtt initiated --> Lovenox fuill dose post op - follow cxr and abg , sedated for today Closed right hip fracture after mechanical fall - S/P right hop sx 01/23 - pain control - as per ortho ID - ancef post op - UA negative , CT chest on admission - no PNA ECHO 01/22 - EF 60 % , gd 1 dst dsfnc , RVSP 45mmHg Hyponatremia , mild - follow DM - ISS Anemia - mild , stable Dysphagia - preop - nectar-thick) liquids - reassess after extubation Dementia - CT head: No acute disease fter fall History of rectal cancer, - as per pat, intolerant to chemotherapy, sees treatment with chemo or radiation therapy Lines : periph , (Central Line Necessity Reviewed) [place]: + OG: to be place Nutrition: Analgesia: fentanyl Anxiety/ delirium VTE Prophylaxis: lovenox 70 bis Stress Ulcer Prophylaxis: ppi Plans in collaboration with bedside consultants and IM MDs. Discussed with RN to reach out if any questions or concerns A total of33 minutes of critical care time was devoted to this patient today, required to treat and/or prevent further deterioration of critical care condition ( as above ) . Reason for Visit: Preoperative cardiac evaluation Allergies and Home Medications Allergies Coded Allergies: [id number] Reductase Inhibitor (Verified Allergy, Unknown, 01/21/22) Home Medications Alprazolam 0.5 Mg Tablet, 0.5 MG PO HS, (Reported) Amlodipine Besylate 5 Mg Tablet, 5 MG PO 1500, (Reported) Ascorbate Calcium 500 Mg Tablet, 500 MG PO DAILY, (Reported) Aspirin/Acetaminophen/Caffeine 1 Each Tablet, 1-2 TAB PO BID PRN for PAIN-MILD, (Reported) Cetirizine HCl/Pseudoephedrine 5 Mg-120 Mg Tab.er.12h, 1 TAB PO Q12H, (Reported) Cholecalciferol (Vitamin D3) 25 Mcg (1000 Unit) Tablet, 25 MCG PO DAILY, (Report ed) Clopidogrel Bisulfate 75 Mg Tablet, 75 MG PO 1500, (Reported) Cyanocobalamin (Vitamin B-12) 2,500 Mcg Tab.subl, 2,500 MCG SL DAILY, (Reported) Ezetimibe 10 Mg Tablet, 10 MG PO DAILY, (Reported) Glipizide 5 Mg Tablet, 5 MG PO DAILY, (Reported) Losartan Potassium 100 Mg Tablet, 100 MG PO DAILY, (Reported) Metformin HCl 1,000 Mg Tablet, 1,000 MG PO BID, (Reported) Mirabegron 50 Mg Tab.er.24h, 50 MG PO HS, (Reported) Multivitamin 1 Each Tablet, 1 EACH PO DAILY, (Reported) Niacin (Inositol Niacinate) 500 Mg Capsule, 500 MG PO HS, (Reported) Omeprazole 20 Mg Capsule.dr, 20 MG PO DAILY, (Reported) Pregabalin 25 Mg Capsule, 25 MG PO BID, (Reported) Saw Spicewood Fruit/Zinc Picoli 450 Mg-15 Mg Capsule, 1 CAP PO DAILY, (Reported) Sertraline HCl 100 Mg Tablet, 100 MG PO 1500, (Reported) Tadalafil 5 Mg Tablet, 5 MG PO DAILY, (Reported) Tamsulosin HCl 0.4 Mg Cap, 0.4 MG PO DAILY, (Reported) Terazosin HCl 2 Mg Capsule, 2 MG PO HS, (Reported) Zinc Gluconate 50 Mg Tablet, 50 MG PO DAILY, (Reported) Past Medical/Social/Family Hx Patient Social History Marrital Status: Employed/Student: retired Tobacco Use?: No Smoking Status: Former Smoker Use of E-Cig and/or Vaping dev: Yes Substance use?: No Alcohol Use?: No Pt stated abuse/neglect: No Immunizations Up To Date Date of Pneumonia Vaccine: Mar 08, 2018 Current Status Advance Directives: No Communicates: Verbally Primary Language: Khmer Preferred Spoken Language: Khmer Implanted or Applied Medical D: None Past Medical History PMHx: Rectal cancer Diabetes HTN Alzheimer dementia Peripheral neuropathy SurgHx: Lumbar fusion Shoulder surgery Hernia repair Right SFA ballooning Review of Systems Constitutional: see HPI Focused Exam Lactate Level 01/21/22 09:25: Lactic Acid Level 1.39 Height, Weight, BMI Height: '" Weight: lbs. oz. kg; 23.40 BMI Method: Exam Exam Patient acknowledged, consented, and participated in this virtual visit which was conducted using real time audio/video Vital Signs Date Time Temp Pulse Resp B/P (MAP) Pulse Ox O2 Delivery O2 Flow Rate FiO2 01/23/22 12:48 99 190/109 01/23/22 12:10 Mechanical Ventilator 01/23/22 12:05 Mechanical Ventilator 01/23/22 12:05 18 201/112 (141) 100 Mechanical Ventilator 01/23/22 11:55 18 207/117 (147) 100 Mechanical Ventilator 01/23/22 11:55 Mechanical Ventilator 01/23/22 11:51 37.0 01/23/22 11:48 87 18 100 100 01/23/22 11:45 Mechanical Ventilator 01/23/22 11:45 18 162/93 (116) 100 Mechanical Ventilator 01/23/22 11:35 18 120/75 (90) 100 Mechanical Ventilator 01/23/22 11:35 Mechanical Ventilator 01/23/22 11:25 36.5 18 120/74 (89) 100 Mechanical Ventilator 01/23/22 11:25 Mechanical Ventilator 01/23/22 10:29 High Flow N/C 10.00 01/23/22 09:00 High Flow N/C 10.00 01/23/22 07:00 106 01/23/22 03:42 36.9 101 15 177/97 (123) 94 OxyMask 10.00 01/23/22 01:00 102 01/23/22 00:00 100 16 161/107 (119) 92 OxyMask 10.00 01/22/22 23:57 37.5 106 17 168/101 (123) 92 OxyMask 10.00 01/22/22 23:12 107 20 168/101 (123) 89 OxyMask 10.00 01/22/22 20:00 36.6 01/22/22 20:00 101 8 153/101 (127) 95 High Flow N/C 10.00 01/22/22 20:00 High Flow N/C 10.00 01/22/22 19:00 100 01/22/22 16:00 96 10 142/88 (106) 98 OxyMask 10.00 I & O 01/23/22 07:00 Intake Total 650 ml Output Total 1900 ml Balance -1250 ml Height & Weight Height: '" Weight: lbs. oz. kg; 23.40 BMI Method: General Appearance: No Apparent Distress, WD/WN HEENT: PERRL/EOMI, Normal ENT Inspection, Pharynx Normal Neck: Full Range of Motion, Normal Inspection Respiratory: Lungs Clear, Decreased Breath Sounds, Rhonci Cardiovascular: Regular Rate, Rhythm Capillary Refill: Less Than 3 Seconds Peripheral Pulses: 2+ Dorsalis Pedis (R); 0 Left Dors-Pedis (L) Gastrointestinal: normal bowel sounds, non tender, soft Neurologic/Psychiatric: Alert, No Motor/Sensory Deficits, Normal Mood/Affect Results Lab Laboratory Tests 01/22/22 05:05 01/23/22 05:30 Assessment/Plan Assessment/Plan 1 NEPTALI ONEAL MD Jan 23, 2022 13:00
--- NOTE | 2022-01-23 14:23 | Physical Therapy Progress Note ---
Therapy Progress Note Patient currently sedated and intubated. PT talked with spouse on patient PLOF and living situation. Patient does have Alzheimer's and requires spouse assistance PLOF. Patient will be evaluated when extubated. Spouse is aware and agrees. RN notified. JAYDA DUFFY PT Jan 23, 2022 14:23
--- NOTE | 2022-01-23 14:41 | Diagnostic Imaging Report ---
CHEST 1 VIEW, AP/PA ONLY Indication: NG tube placement. Intubation Comparison: 01/23/2022 at 12:05 PM Findings: ET tube is been advanced and now has tip 4.5 cm above bijan. Enteric tube courses terminates in the proximal stomach. Left basilar atelectasis is similar. No pneumothorax or pleural effusion. Heart is normal in size. Right upper lobe ill-defined pulmonary consolidations are stable. Impression: 1. Well-positioned ETT and enteric tubes. 2. Stable right upper lobe pulmonary opacities. Dictated by: Dictated on workstation # [id number]
[2022-01-23] MEDS: SERTRALINE 100 MG (ZOLOFT) TAB PO SCH (16:14)
[2022-01-23] MEDS: amLODIPine 5 MG (NORVASC) TAB PO SCH (16:14)
[2022-01-23] MEDS: ceFAZolin 2 GM IV Premixed 50 ML IV SCH (17:50)
[2022-01-23] MEDS: inSUlin ASPART (NovoLOG) 1 UNIT/0.01 ML (CHARGE PER UNIT) SC SCH ×2 (18:48→23:29)
[2022-01-23] MEDS: MIRABEGRON 25 MG TAB (MYRBETRIQ) PO SCH (20:44)
[2022-01-23] MEDS: HYDROcodone/APAP 5 MG/325 MG (LORTAB) TAB PO PRN (20:45)
[2022-01-23] MEDS: TERAZOSIN 1 MG CAP (HYTRIN) PO SCH (20:45)
[2022-01-23] MEDS: NIACIN ER (NIASPAN) 500 MG TAB PO SCH (20:45)
[2022-01-23] MEDS: ALPRAZolam 0.5 MG (XANAX) TAB PO SCH (20:47)
[2022-01-23] MEDS: ENOXAPARIN 80 MG/0.8 ML (LOVENOX) SYR SC SCH (22:38)
[2022-01-24] VITALS (26 sets, daily range): BP systolic 109–150; BP diastolic 66–99
[2022-01-24] MEDS: fentaNYL INJ 100 MCG/2 ML AMP IVP PRN ×3 (00:32→16:22)
[2022-01-24] MEDS: PROPOFOL DRIP (ICU) 100 ML IV SCH ×2 (00:34→05:28)
[2022-01-24] MEDS: ceFAZolin 2 GM IV Premixed 50 ML IV SCH ×2 (02:10→09:27)
[2022-01-24 05:06] LABS: HEMATOCRIT 28 % (40-54); HEMOGLOBIN 9.9 g/dL (13.3-17.7); MEAN CORPUSCULAR HEMOGLOBIN 31 pg (25-34); MEAN CORPUSCULAR HGB CONC 35 g/dL (32-36); MEAN CORPUSCULAR VOLUME 87 fL (80-99); MEAN PLATELET VOLUME 9.9 fL (9.0-12.2); PLATELET COUNT 231 10^3/uL (130-400); WHITE BLOOD COUNT 8.8 10^3/uL (4.3-11.0)
[2022-01-24 05:20] LABS: INR 1.1 (0.8-1.4); PROTHROMBIN TIME PATIENT 14.6 SEC (12.2-14.7)
[2022-01-24 05:23] LABS: ALBUMIN 3.2 GM/DL (3.2-4.5)
[2022-01-24 05:24] LABS: POTASSIUM 3.5 MMOL/L (3.6-5.0)
[2022-01-24 05:25] LABS: CALCIUM 9.6 MG/DL (8.5-10.1)
[2022-01-24 05:26] LABS: TOTAL PROTEIN 6.3 GM/DL (6.4-8.2)
[2022-01-24] MEDS: LACTATED RINGERS 1,000 ML IV PRN ×3 (05:27→22:21)
[2022-01-24 05:28] LABS: BILIRUBIN,TOTAL 0.6 MG/DL (0.1-1.0)
[2022-01-24 05:30] LABS: CREATININE SERUM 1.94 MG/DL (0.60-1.30)
[2022-01-24] MEDS ORDERED: POTASSIUM CL 10MEQ/50ML IVPB 100 ML IV ONE (05:36)
[2022-01-24] MEDS: POTASSIUM CL 10MEQ/50ML IVPB 50 ML IV SCH ×2 (05:38→05:39)
[2022-01-24] MEDS: inSUlin ASPART (NovoLOG) 1 UNIT/0.01 ML (CHARGE PER UNIT) SC SCH ×4 (05:38→23:20)
[2022-01-24 06:08] LABS: PHOSPHORUS 3.1 MG/DL (2.3-4.7)
[2022-01-24 06:09] LABS: MAGNESIUM 1.8 MG/DL (1.6-2.4)
--- NOTE | 2022-01-24 07:13 | Physical Therapy Progress Note ---
Therapy Progress Note Patient remains sedated and intubated. PT will continue to monitor patient status and initiate skilled therapy when patient is able to actively participate. JAYDA DUFFY PT Jan 24, 2022 07:13
--- NOTE | 2022-01-24 07:53 | Progress Note ---
Subjective Subjective/Events-last exam Remains ventilated post-op. Responding some per nursing. Is on 30% FiO2 currently, plan for extubation today when is here. Focused Exam Lactate Level 01/21/22 09:25: Lactic Acid Level 1.39 Objective Exam Last Set of Vital Signs Vital Signs Date Time Temp Pulse Resp B/P (MAP) Pulse Ox O2 Delivery O2 Flow Rate FiO2 01/24/22 07:00 92 01/24/22 06:00 18 146/88 (107) 99 Mechanical Ventilator 40.00 01/24/22 04:00 40 01/24/22 04:00 37.4 Capillary Refill : Less Than 3 Seconds I&O Intake and Output 01/24/22 00:00 Intake Total 2200 ml Output Total 1825 ml Balance 375 ml Intake Oral 180 ml IV Total 2020 ml Output Urine Total 1775 ml Gastric Drainage Total 50 ml # Voids 1 General: Other (intubated, sedated) Lungs: Clear to Auscultation Heart: Regular Rate Abdomen: Normal Bowel Sounds, Soft Extremities: No Edema Results/Procedures Lab Laboratory Tests 01/23/22 13:09: Bedside Blood Gas pH (LAB) 7.414H, Bedside Blood Gas pCO2 (LAB) 37.0L, Bedside Blood Gas pO2 (LAB) 261H, Bedside Blood Gas HCO3 (LAB) 23.7, POC Blood Gas Total CO2 Calc 25, Bedside Bl Gas O2 Saturation (Calc) 100H, Bedside Arterial Blood Base Excess -1 01/23/22 18:25: Glucometer 243H 01/23/22 23:23: Glucometer 197H 01/24/22 04:53: White Blood Count 8.8, Red Blood Count 3.23L, Hemoglobin 9.9L, Hematocrit 28L, Mean Corpuscular Volume 87, Mean Corpuscular Hemoglobin 31, Mean Corpuscular Hemoglobin Concent 35, Red Cell Distribution Width 14.0, Platelet Count 231, Mean Platelet Volume 9.9, Prothrombin Time 14.6, INR Comment 1.1, Sodium Level 135, Potassium Level 3.5L, Chloride Level 98, Carbon Dioxide Level 22, Anion Gap 15H, Blood Urea Nitrogen 31H, Creatinine 1.94H, Estimat Glomerular Filtration Rate 35, BUN/Creatinine Ratio 16, Glucose Level 182H, Calcium Level 9.6, Correct ed Calcium 10.2H, Total Bilirubin 0.6, Aspartate Amino Transf (AST/SGOT) 15, Alanine Aminotransferase (ALT/SGPT) 19, Alkaline Phosphatase 74, Total Protein 6.3L, Albumin 3.2, Triglycerides Level 181H, Procalcitonin 0.47H 01/24/22 05:31: Phosphorus Level 3.1, Magnesium Level 1.8 01/24/22 05:59: Bedside Blood Gas pH (LAB) 7.518H, Bedside Blood Gas pCO2 (LAB) 30.3L, Bedside Blood Gas pO2 (LAB) 94, Bedside Blood Gas HCO3 (LAB) 24.6, POC Blood Gas Total CO2 Calc 26, Bedside Bl Gas O2 Saturation (Calc) 98, Bedside Arterial Blood Base Excess 2 Microbiology 01/21/22 Urine Culture - Final, Complete Gram Pos Mixed Bacterial Denia 01/21/22 Blood Culture - Preliminary, Resulted Staphylococcus capitis Radiology CXR 01/21/22: IMPRESSION: Mild central vascular congestion and chronic appearing increased interstitial markings. Questionable small nodular density over the right perihilar region. This would appear to correspond to a nodule seen on the chest CT of 05/17/2021. CTA chest/abd/pelvis 01/21/22: IMPRESSION: 1. No acute aortic syndrome. 2. Dilated abdominal aorta measuring 3.1 x 3.0 cm and dilated left common iliac artery measuring 2.4 cm. 3. Nondisplaced right femoral neck fracture. Head CT 01/21/22: IMPRESSION: Nonspecific periventricular white matter disease may be on posttreatment basis or reflect chronic small vessel sequelae. No posttraumatic or acute appearing abnormality. No findings suggestive of metastatic disease. Right hip x-ray 01/21/22: IMPRESSION: Subcapital right hip fracture. Assessment/Plan Assessment/Plan (1) Closed right hip fracture Status: Acute Assessment & Plan: 01/23 Orthopedic Surgery consulted, plan to go to OR today 01/24 s/p repair, appreciate Orthopedic Surgery recommendations Qualifiers: Qualified Codes: S72.001A - Fracture of unspecified part of neck of right femur, initial encounter for closed fracture (2) Acute respiratory failure with hypoxia Status: Acute Assessment & Plan: Uncertain etiology, but requiring up to 10 lpm supplemental oxygen. Started on heparin drip for possible PE, unfortunately CTA order did not obtain the PE scan desired. BNP and troponin nml. Echo and Cardiology consult pending for possible cardiac disease. 01/23- echo with grade 1 diastolic dysfunction, normal EF, no right heart strain noted. Appreciate Cardiology recommendations. Had hoped to get CTA chest after a period of time to avoid repeat contrast use close to previous, but his creatinine is trending up, so still concerning, consider V/Q scan. 01/24- remains ventilated post-op, appreciate critical care assistance, plan for extubation today. On enoxaparin treatment dose. Xray now shows some right upper lobe infiltrate, started Zosyn per ICU physician. (3) Diabetes mellitus Status: Chronic Assessment & Plan: Hold home meds. Sliding scale insulin, diabetic diet. Qualifiers: Qualified Codes: E11.65 - Type 2 diabetes mellitus with hyperglycemia (4) Dementia Status: Chronic (5) Hyperlipidemia Assessment & Plan: Resume home ezetemibe and niacin. Can't tolerate statins. (6) Hypertension Assessment & Plan: Resume home meds Qualifiers: Qualified Codes: I10 - Essential (primary) hypertension (7) BPH (benign prostatic hyperplasia) Status: Chronic Assessment & Plan: Resume home meds Qualifiers: (8) KATH (acute kidney injury) Status: Acute Assessment & Plan: Cr up to 1.93 post-operatively, on IVF, monitor closely. (9) DVT prophylaxis Status: Acute Assessment & Plan: Heparin drip at treatment dose held prior to surgery. On treatment dose enoxaparin post-op. ALIYAH TRIPATHI MD Jan 24, 2022 07:53
[2022-01-24] MEDS: LORATADINE (CLARITIN) 10 MG TAB PO SCH (08:23)
[2022-01-24] MEDS: VITAMIN D3 25 MCG (1,000 UNITS) TABLET PO SCH (08:23)
[2022-01-24] MEDS: eZETimibe 10 MG (ZETIA) TABLET PO SCH (08:23)
[2022-01-24] MEDS: PREGABALIN 25 MG (LYRICA) CAPSULE PO SCH ×2 (08:23→20:31)
[2022-01-24] MEDS: LOSARTAN 100 MG (COZAAR) TABLET PO SCH (08:24)
[2022-01-24] MEDS: TAMSULOSIN 0.4 MG (FLOMAX) CAP PO SCH (08:24)
[2022-01-24] MEDS: PANTOPRAZOLE 20 MG TABLET (PROTONIX) PO SCH (08:24)
[2022-01-24] MEDS ORDERED: PIPERACILLIN SODIUM/TAZOBACTAM 4.5 GM in NS (IVPB) 100 ML IV ONE (08:45)
[2022-01-24] MEDS: tadalafiL 5 MG TABLET (NON-FORMULARY) PO SCH (08:52)
[2022-01-24] MEDS: PSEUDOEPHEDRINE HCL 30 MG (SUDAFED) TAB PO SCH ×2 (08:52→20:31)
--- NOTE | 2022-01-24 09:26 | Progress Note - Ortho ---
Progress Note Subjective Date of Exam 01/24/22 Chief Complaint POD#1Cemented bipolar hemiarthroplasty right hip for a nondisplaced subcapital fracture HPI/Events since last exam Mr. Cabral is 1 day postop cemented bipolar hemiarthroplasty right hip for nondisplaced subcapital fracture. He still intubated. Review of Systems Reviewed and no additions or changes Allergies: Coded Allergies: Cuahrdo-EBC-UaZ Reductase Inhibitor (Verified Allergy, Unknown, 01/21/22) Home Meds Reported Medications Omeprazole (Omeprazole) 20 Mg Capsule.dr, 20 MG PO DAILY, CAP 01/22/22 Tadalafil (Tadalafil) 5 Mg Tablet, 5 MG PO DAILY, TAB 01/22/22 Pregabalin (Pregabalin) 25 Mg Capsule, 25 MG PO BID, CAP 01/22/22 Multivitamin (Multivitamin) 1 Each Tablet, 1 EACH PO DAILY, TAB 01/22/22 Cyanocobalamin (Vitamin B-12) (Vitamin B-12) 2,500 Mcg Tab.subl, 2500 MCG SL DAILY, TAB 01/21/22 Zinc Gluconate (Zinc) 50 Mg Tablet, 50 MG PO DAILY, TAB 01/21/22 Ascorbate Calcium (Vitamin C) 500 Mg Tablet, 500 MG PO DAILY, TAB 01/21/22 Mirabegron (Myrbetriq) 50 Mg Tab.er.24h, 50 MG PO HS, TAB 01/21/22 Clopidogrel Bisulfate (Clopidogrel) 75 Mg Tablet, 75 MG PO 1500, TAB 01/21/22 Sertraline HCl (Sertraline HCl) 100 Mg Tablet, 100 MG PO 1500, TAB 01/21/22 Cholecalciferol (Vitamin D3) (Vitamin D3) 25 Mcg (1000 Unit) Tablet, 25 MCG PO DAILY, TAB 01/21/22 Tamsulosin HCl (Flomax) 0.4 Mg Cap, 0.4 MG PO DAILY, CAP 03/28/19 Ezetimibe (Zetia) 10 Mg Tablet, 10 MG PO DAILY, TAB 03/28/19 Cetirizine HCl/Pseudoephedrine (Cetirizine-Pse ER 5-120 mg Tab) 5 Mg-120 Mg Tab.er.12h, 1 TAB PO Q12H, TAB 03/28/19 Aspirin/Acetaminophen/Caffeine (Excedrin Extra Strength Caplet) 1 Each Tablet, 1-2 TAB PO BID PRN for PAIN-MILD, TAB 03/28/19 [place] Fruit/Zinc Picoli (Saw [place] 450 mg Capsule) 450 Mg-15 Mg Capsule, 1 CAP PO DAILY, CAP 03/28/19 Niacin (Inositol Niacinate) (Niacin 500 mg Capsule) 500 Mg Capsule, 500 MG PO HS, CAP 03/28/19 Amlodipine Besylate (Amlodipine Besylate) 5 Mg Tablet, 5 MG PO 1500, TAB 03/28/19 Glipizide (Glipizide) 5 Mg Tablet, 5 MG PO DAILY, TAB 03/28/19 Metformin HCl (Metformin HCl) 1,000 Mg Tablet, 1000 MG PO BID, TAB 03/28/19 Terazosin HCl (Terazosin HCl) 2 Mg Capsule, 2 MG PO HS, CAP 03/28/19 Losartan Potassium (Losartan Potassium) 100 Mg Tablet, 100 MG PO DAILY, TAB 03/28/19 Alprazolam (Alprazolam) 0.5 Mg Tablet, 0.5 MG PO HS, TAB 03/28/19 Discontinued Reported Medications Gabapentin (Gabapentin) 100 Mg Capsule, 100 MG PO HS, CAP 03/28/19 Aspirin (Aspirin EC) 325 Mg Tablet.dr, 325 MG PO DAILY, TAB 03/28/19 Multivit-Min/FA/Lycopene/Lut (Complete Multi 50+ Tablet) 1 Each Tablet, 1 TAB PO DAILY, TAB 03/28/19 Discontinued Scripts [Trospium Tablet] 20 MG TAB No Conflict Check, 20 MG PO DAILY@06,16, #30 TAB Prov:LENNY CAVANAUGH DO 04/01/19 Tolterodine Tartrate (Detrol LA) 4 Mg Cap, 4 MG PO HS, #30 CAP Prov:LENNY CAVANAUGH DO 04/01/19 Sennosides/Docusate Sodium (Senna-Time S Tablet) 1 Each Tablet, 2 EA PO BID, #60 TAB Prov:LENNY CAVANAUGH DO 04/01/19 Hydrocodone Bit/Acetaminophen (HYDROcodone/APAP 10/325 TABLET) 1 Each Tablet, 1- 2 EA PO Q4H PRN for PAIN-MODERATE, #30 TAB Prov:LENNY CAVANAUGH DO 04/01/19 Baclofen (Baclofen) 10 Mg Tablet, 10 MG PO Q8HR PRN for MUSCLE SPASM, #30 TAB Prov:LENNY CAVANAUGH DO 04/01/19 Objective Exam Constitutional: [] HEENT: [] Neck: [] Cardiovascular: [] Respiratory: [] Gastrointestinal: [] Genitourinary: [] Skin: [] Back/Spine: [] Extremities: [Right leg is in good position and equal rotation compared to the left. Dressing is intact. No swelling in the thigh or calf.] Neurologic: [] Psychiatric: [] Hematologic/lymphatic/immunologic: [] Vital Signs Vital Signs Date Time Temp Pulse Resp B/P (MAP) Pulse Ox O2 Delivery O2 Flow Rate FiO2 01/24/22 09:00 108 18 136/85 (102) 96 Mechanical Ventilator 40.00 01/24/22 08:00 96 18 141/84 (103) 95 Mechanical Ventilator 40.00 01/24/22 07:00 93 18 110/76 (87) 97 Mechanical Ventilator 40.00 01/24/22 07:00 92 01/24/22 06:00 102 18 146/88 (107) 99 Mechanical Ventilator 40.00 01/24/22 05:28 101 143/91 01/24/22 05:00 98 17 141/91 (108) 99 Mechanical Ventilator 40.00 01/24/22 04:13 102 117/76 01/24/22 04:00 40 01/24/22 04:00 97 Mechanical Ventilator 40 01/24/22 04:00 101 17 117/76 (90) 96 Mechanical Ventilator 40.00 01/24/22 04:00 37.4 01/24/22 02:43 106 18 99 40 01/24/22 02:15 103 17 137/87 (107) 99 Mechanical Ventilator 40.00 01/24/22 01:00 97 23 114/75 (88) 98 Mechanical Ventilator 40.00 01/24/22 01:00 97 01/24/22 00:34 106 175/106 01/24/22 00:00 98 17 131/81 (99) 98 Mechanical Ventilator 40.00 01/23/22 23:25 98 Mechanical Ventilator 40 01/23/22 23:25 40 01/23/22 23:20 37.3 Mechanical Ventilator 40.00 01/23/22 23:00 101 131/82 (100) 96 Mechanical Ventilator 40.00 01/23/22 22:34 107 18 96 40 01/23/22 22:00 105 18 148/93 (111) 98 Mechanical Ventilator 40.00 01/23/22 21:50 100 159/107 01/23/22 21:00 103 19 153/100 (119) 99 Mechanical Ventilator 40.00 01/23/22 20:00 100 151/93 (118) 99 Mechanical Ventilator 40.00 01/23/22 19:45 99 Mechanical Ventilator 40 01/23/22 19:45 40 01/23/22 19:01 93 18 99 40 01/23/22 19:00 94 01/23/22 19:00 36.2 99 18 132/81 (98) 99 Mechanical Ventilator 40.00 01/23/22 18:00 82 18 133/83 (100) 99 Mechanical Ventilator 40.00 01/23/22 17:54 84 132/83 01/23/22 17:00 84 18 116/77 (90) 99 Mechanical Ventilator 40.00 01/23/22 16:44 89 110/77 01/23/22 16:00 89 17 110/77 (88) 99 Mechanical Ventilator 40.00 01/23/22 15:50 Mechanical Ventilator 40.00 01/23/22 15:50 Mechanical Ventilator 80 01/23/22 15:50 80 01/23/22 15:00 94 17 110/79 (89) 99 Mechanical Ventilator 60.00 01/23/22 14:59 Mechanical Ventilator 60.00 01/23/22 14:56 96 18 98 40 01/23/22 14:00 112 11 129/85 (100) 100 Mechanical Ventilator 80.00 01/23/22 13:08 Mechanical Ventilator 80.00 01/23/22 13:00 100 01/23/22 13:00 100 18 129/85 (100) 100 Mechanical Ventilator 100.00 01/23/22 12:48 99 190/109 01/23/22 12:10 36.5 18 201/112 (141) 100 Mechanical Ventilator 01/23/22 12:10 Mechanical Ventilator 01/23/22 12:05 Mechanical Ventilator 01/23/22 12:05 18 201/112 (141) 100 Mechanical Ventilator 01/23/22 12:00 96 11 190/109 (136) 100 Mechanical Ventilator 100.00 01/23/22 12:00 Mechanical Ventilator 80 01/23/22 12:00 80 01/23/22 11:55 18 207/117 (147) 100 Mechanical Ventilator 8/18/22 11:55 Mechanical Ventilator 01/23/22 11:51 37.0 01/23/22 11:48 87 18 100 100 01/23/22 11:45 Mechanical Ventilator 01/23/22 11:45 18 162/93 (116) 100 Mechanical Ventilator 01/23/22 11:35 18 120/75 (90) 100 Mechanical Ventilator 01/23/22 11:35 Mechanical Ventilator 01/23/22 11:25 36.5 18 120/74 (89) 100 Mechanical Ventilator 01/23/22 11:25 Mechanical Ventilator 01/23/22 11:15 Mechanical Ventilator 100.00 01/23/22 10:29 High Flow N/C 10.00 I & O 01/24/22 07:00 Intake Total 3610 ml Output Total 1555 ml Balance 2055 ml Lab Results Laboratory Tests 01/23/22 13:09: Bedside Blood Gas pH (LAB) 7.414H, Bedside Blood Gas pCO2 (LAB) 37.0L, Bedside Blood Gas pO2 (LAB) 261H, Bedside Blood Gas HCO3 (LAB) 23.7, POC Blood Gas Total CO2 Calc 25, Bedside Bl Gas O2 Saturation (Calc) 100H, Bedside Arterial Blood Base Excess -1 01/23/22 18:25: Glucometer 243H 01/23/22 23:23: Glucometer 197H 01/24/22 04:53: White Blood Count 8.8, Red Blood Count 3.23L, Hemoglobin 9.9L, Hematocrit 28L, Mean Corpuscular Volume 87, Mean Corpuscular Hemoglobin 31, Mean Corpuscular Hemoglobin Concent 35, Red Cell Distribution Width 14.0, Platelet Count 231, Mean Platelet Volume 9.9, Prothrombin Time 14.6, INR Comment 1.1, Sodium Level 135, Potassium Level 3.5L, Chloride Level 98, Carbon Dioxide Level 22, Anion Gap 15H, Blood Urea Nitrogen 31H, Creatinine 1.94H, Estimat Glomerular Filtration Rate 35, BUN/Creatinine Ratio 16, Glucose Level 182H, Calcium Level 9.6, Correc jesus Calcium 10.2H, Total Bilirubin 0.6, Aspartate Amino Transf (AST/SGOT) 15, Alanine Aminotransferase (ALT/SGPT) 19, Alkaline Phosphatase 74, Total Protein 6.3L, Albumin 3.2, Triglycerides Level 181H, Procalcitonin 0.47H 8/19/22 05:31: Phosphorus Level 3.1, Magnesium Level 1.8 01/24/22 05:59: Bedside Blood Gas pH (LAB) 7.518H, Bedside Blood Gas pCO2 (LAB) 30.3L, Bedside Blood Gas pO2 (LAB) 94, Bedside Blood Gas HCO3 (LAB) 24.6, POC Blood Gas Total CO2 Calc 26, Bedside Bl Gas O2 Saturation (Calc) 98, Bedside Arterial Blood Base Excess 2 Microbiology 01/21/22 Urine Culture - Final, Complete Gram Pos Mixed Bacterial Denia 01/21/22 Blood Culture - Preliminary, Resulted Staphylococcus capitis Assessment and Plan Assessment 1 day postop Problem List 1 day postop cemented bipolar hemiarthroplasty right hip for A nondisplaced subcapital fracture Plan Hold on any rehab until extubated Final Diagonsis Nondisplaced subcapital fracture right hip status post cemented bipolar hemiarthroplasty Level of the visit: Level 3 Focused Exam Lactate Level 01/21/22 09:25: Lactic Acid Level 1.39 TEMI CHAVEZ MD Jan 24, 2022 09:26
--- NOTE | 2022-01-24 09:36 | Cardiology Progress Note ---
Subjective Date Seen by Provider: Jan 24, 2022 Time Seen by Provider: 09:35 Subjective/Events-last exam Patient is still intubated, ventilator dependent Review of Systems General: Other (Unable to provide review of system) Objective-Cardiology Exam Last Set of Vital Signs Vital Signs 01/24/22 01/24/22 04:00 09:00 Pulse 108 Resp 18 B/P (MAP) 136/85 (102) Pulse Ox 96 O2 Delivery Mechanical Ventilator O2 Flow Rate 40.00 FiO2 40 I&O Intake and Output 01/24/22 00:00 Intake Total 2200 ml Output Total 1825 ml Balance 375 ml Intake Oral 180 ml IV Total 2020 ml Output Urine Total 1775 ml Gastric Drainage Total 50 ml # Voids 1 General: Other (Ventilator dependent) HEENT: Atraumatic Neck: Supple Lungs: Clear to Auscultation Heart: Normal S1, Normal S2, Other (Systolic murmur at the left sternal border) Abdomen: Normal Bowel Sounds, Soft Extremities: No Clubbing, No Edema Skin: No Rashes Neuro: Other (Ventilator dependent) Psych/Mental Status: Mood NL, Other (Ventilator dependent) Results Lab Laboratory Tests 01/24/22 04:53 A/P-Cardiology Admission Diagnosis Hip fracture Hypertension Hyperlipidemia Dementia Assessment/Plan Right-sided hip fracture post surgical repair done on January 23, 2022 Managed by medical service postoperatively Respiratory failure, ventilator dependent, managed by medical team. Alzheimer's dementia. Progressive neuropathy and weakness. Probably will benefit from physical and Occupational Therapy after the hip management Hypertension, monitor blood pressure 2D echocardiogram was done showing normal LV size with ejection fraction 60 to 65%, calcified mitral valve, pulmonary artery pressure 40 to 45 mmHg Hyperlipidemia, monitor lipids History of rectal cancer, was intolerant to chemotherapy, sees treatment with chemo or radiation therapy. Did not want to have surgery. Has been managed by primary care physician, conservative management Questionable history of multiple mini strokes in the past according to the . He has been working with a neurologist at . No source of embolization was identified Will evaluate 2D echocardiogram and monitor on telemetry Diabetes mellitus, followed and managed by primary care physician Generalized weakness and debility. ANDERSON WARNER MD Jan 24, 2022 09:36
--- NOTE | 2022-01-24 10:02 | Tele-ICU Progress Note ---
Subjective Date Seen by a Provider: Jan 24, 2022 Time Seen by a Provider: 10:02 Subjective/Events-last exam (Tele-ICU Physician , Progress Note ) Available chart/ vitals / labs / Images reviewed Video assessment done using teleICU camera, rest of exam as per RN Discussed with RN Events overnight : Afebrile - 37 .5 hemodynamically stable Respiratory - 40 % I/O = Drips: Pressors- no VENT SETTINGS and ABG reviewed Sedation: RASS -1 propofol 40 Not candidate for SBTContraindications : Cardiovascular Stability /Sedation Score / FI02/PEEP / ABG / CXR Consultants: gisel brooks Hospital course: (01/21) 76M admitted to the floor s/p fall with right femoral neck fracture (01/23) pt tx from OR s/p Cemented bipolar hemiarthroplasty of the right hip, pt remains intubated 02/03 - rr 18, 550 , 30% +5 A/P Acute resp failure - intubated 01/23 after Sx - presented on admission : needed 4 l in ER , 10 L O2 prior to Sx -PE suspected - CTA was not PE protocol , no huge clots seen , no right side strain on ECHO - heparin gtt initiated --> Lovenox fuill dose post op - - will try SBT today Closed right hip fracture after mechanical fall - S/P right hop sx 01/23 - pain control - as per ortho KATH in 01/24 - no sign hypotension observed , but received contrast on 01/21 - hydration , follow ID - blood cx on admission- [facility]ider - ancef post op - UA negative , CT chest on admission - no PNA , CXR 01/23 and 01/22 - RUL opacification ( possible PNA -) spuitum cx done 01/23 possible PNA RUL - spuitum cx done 01/23 , PCT 0.4 , fever 37.6 - starting ABX ECHO 01/22 - EF 60 % , gd 1 dst dsfnc , RVSP 45mmHg Hyponatremia , mild - follow DM - ISS Anemia - mild on admission HB dropped post op - to follow Dysphagia( on admission ) - preop - nectar-thick) liquids - reassess after extubation Dementia - CT head: No acute disease fter fall History of rectal cancer, - as per abbytes, intolerant to chemotherapy, sees treatment with chemo or radiation therapy Lines : periph , (Central Line Necessity Reviewed) [place]: + OG: to be place Nutrition: Analgesia: fentanyl Anxiety/ delirium VTE Prophylaxis: lovenox 70 bis Stress Ulcer Prophylaxis: ppi Plans in collaboration with bedside consultants and IM MDs. Discussed with RN to reach out if any questions or concerns A total of33 minutes of critical care time was devoted to this patient today, required to treat and/or prevent further deterioration of critical care condition ( as above ) . Sepsis Event Evaluation Height, Weight, BMI Height: '" Weight: lbs. oz. kg; 23.40 BMI Method: Exam Exam Patient acknowledged, consented, and participated in this virtual visit which was conducted using real time audio/video Vital Signs Date Time Temp Pulse Resp B/P (MAP) Pulse Ox O2 Delivery O2 Flow Rate FiO2 01/24/22 09:00 108 18 136/85 (102) 96 Mechanical Ventilator 40.00 01/24/22 08:00 37.2 01/24/22 08:00 96 18 141/84 (103) 95 Mechanical Ventilator 40.00 01/24/22 07:00 93 18 110/76 (87) 97 Mechanical Ventilator 40.00 01/24/22 07:00 92 01/24/22 06:00 102 18 146/88 (107) 99 Mechanical Ventilator 40.00 01/24/22 05:28 101 143/91 01/24/22 05:00 98 17 141/91 (108) 99 Mechanical Ventilator 40.00 01/24/22 04:13 102 117/76 01/24/22 04:00 40 01/24/22 04:00 97 Mechanical Ventilator 40 01/24/22 04:00 101 17 117/76 (90) 96 Mechanical Ventilator 40.00 01/24/22 04:00 37.4 01/24/22 02:43 106 18 99 40 01/24/22 02:15 103 17 137/87 (107) 99 Mechanical Ventilator 40.00 01/24/22 01:00 97 23 114/75 (88) 98 Mechanical Ventilator 40.00 01/24/22 01:00 97 01/24/22 00:34 106 175/106 01/24/22 00:00 98 17 131/81 (99) 98 Mechanical Ventilator 40.00 01/23/22 23:25 98 Mechanical Ventilator 40 01/23/22 23:25 40 01/23/22 23:20 37.3 Mechanical Ventilator 40.00 01/23/22 23:00 101 131/82 (100) 96 Mechanical Ventilator 40.00 01/23/22 22:34 107 18 96 40 01/23/22 22:00 105 18 148/93 (111) 98 Mechanical Ventilator 40.00 01/23/22 21:50 100 159/107 01/23/22 21:00 103 19 153/100 (119) 99 Mechanical Ventilator 40.00 01/23/22 20:00 100 151/93 (118) 99 Mechanical Ventilator 40.00 01/23/22 19:45 99 Mechanical Ventilator 40 01/23/22 19:45 40 01/23/22 19:01 93 18 99 40 01/23/22 19:00 94 01/23/22 19:00 36.2 99 18 132/81 (98) 99 Mechanical Ventilator 40.00 01/23/22 18:00 82 18 133/83 (100) 99 Mechanical Ventilator 40.00 01/23/22 17:54 84 132/83 01/23/22 17:00 84 18 116/77 (90) 99 Mechanical Ventilator 40.00 01/23/22 16:44 89 110/77 01/23/22 16:00 89 17 110/77 (88) 99 Mechanical Ventilator 40.00 01/23/22 15:50 Mechanical Ventilator 40.00 01/23/22 15:50 Mechanical Ventilator 80 01/23/22 15:50 80 01/23/22 15:00 94 17 110/79 (89) 99 Mechanical Ventilator 60.00 01/23/22 14:59 Mechanical Ventilator 60.00 01/23/22 14:56 96 18 98 40 01/23/22 14:00 112 11 129/85 (100) 100 Mechanical Ventilator 80.00 01/23/22 13:08 Mechanical Ventilator 80.00 01/23/22 13:00 100 01/23/22 13:00 100 18 129/85 (100) 100 Mechanical Ventilator 100.00 01/23/22 12:48 99 190/109 01/23/22 12:10 36.5 18 201/112 (141) 100 Mechanical Ventilator 01/23/22 12:10 Mechanical Ventilator 01/23/22 12:05 Mechanical Ventilator 01/23/22 12:05 18 201/112 (141) 100 Mechanical Ventilator 01/23/22 12:00 96 11 190/109 (136) 100 Mechanical Ventilator 100.00 01/23/22 12:00 Mechanical Ventilator 80 01/23/22 12:00 80 01/23/22 11:55 18 207/117 (147) 100 Mechanical Ventilator 01/23/22 11:55 Mechanical Ventilator 01/23/22 11:51 37.0 01/23/22 11:48 87 18 100 100 01/23/22 11:45 Mechanical Ventilator 01/23/22 11:45 18 162/93 (116) 100 Mechanical Ventilator 01/23/22 11:35 18 120/75 (90) 100 Mechanical Ventilator 01/23/22 11:35 Mechanical Ventilator 01/23/22 11:25 36.5 18 120/74 (89) 100 Mechanical Ventilator 01/23/22 11:25 Mechanical Ventilator 01/23/22 11:15 Mechanical Ventilator 100.00 01/23/22 10:29 High Flow N/C 10.00 I & O 01/24/22 06:59 Intake Total 3610 ml Output Total 1555 ml Balance 2055 ml Height & Weight Height: '" Weight: lbs. oz. kg; 23.40 BMI Method: General Appearance: No Apparent Distress, WD/WN HEENT: PERRL/EOMI, Normal ENT Inspection, Pharynx Normal Neck: Full Range of Motion, Normal Inspection Respiratory: Lungs Clear, Decreased Breath Sounds, Rhonci Cardiovascular: Regular Rate, Rhythm Capillary Refill: Less Than 3 Seconds Peripheral Pulses: 2+ Dorsalis Pedis (R); 0 Left Dors-Pedis (L) Gastrointestinal: normal bowel sounds, non tender, soft Neurologic/Psychiatric: Alert, No Motor/Sensory Deficits, Normal Mood/Affect Results Lab Laboratory Tests 01/23/22 05:30 01/24/22 04:53 Assessment/Plan Assessment/Plan 1 NEPTALI ONEAL MD Jan 24, 2022 10:02
[2022-01-24] MEDS: ENOXAPARIN 80 MG/0.8 ML (LOVENOX) SYR SC SCH ×2 (10:49→22:21)
[2022-01-24] MEDS ORDERED: PANTOPRAZOLE 40 MG (PROTONIX) VIAL IV NR (12:00)
--- NOTE | 2022-01-24 13:39 | Anesthesia-General Post-Op ---
General Patient Condition Mental Status/LOC: Same as Preop Cardiovascular: Satisfactory Nausea/Vomiting: Absent Respiratory: Satisfactory Pain: Controlled Complications: Absent Post Op Complications Complications None Follow Up Care/Instructions Patient Instructions None needed. Anesthesia/Patient Condition Patient Condition Patient is doing well, no complaints, stable vital signs, no apparent adverse anesthesia problems. No complications reported per nursing. LAZ BLACK CRNA Jan 24, 2022 13:39
[2022-01-24] MEDS: amLODIPine 5 MG (NORVASC) TAB PO SCH (15:02)
[2022-01-24] MEDS: PIPERACILLIN SODIUM/TAZOBACTAM 4.5 GM in NS (IVPB) 100 ML IV SCH ×2 (15:02→22:21)
[2022-01-24] MEDS: SERTRALINE 100 MG (ZOLOFT) TAB PO SCH (15:02)
[2022-01-24] MEDS: ALPRAZolam 0.5 MG (XANAX) TAB PO SCH (20:31)
[2022-01-24] MEDS: NIACIN ER (NIASPAN) 500 MG TAB PO SCH (20:31)
[2022-01-24] MEDS: TERAZOSIN 1 MG CAP (HYTRIN) PO SCH (20:31)
[2022-01-24] MEDS: MIRABEGRON 25 MG TAB (MYRBETRIQ) PO SCH (20:31)
[2022-01-25] VITALS (22 sets, daily range): BP systolic 102–156; BP diastolic 56–94
[2022-01-25] MEDS: fentaNYL INJ 100 MCG/2 ML AMP IVP PRN (01:01)
[2022-01-25 05:49] LABS: ALBUMIN 3.1 GM/DL (3.2-4.5)
[2022-01-25 05:50] LABS: POTASSIUM 3.6 MMOL/L (3.6-5.0)
[2022-01-25 05:51] LABS: CALCIUM 9.3 MG/DL (8.5-10.1)
[2022-01-25 05:54] LABS: BILIRUBIN,TOTAL 0.9 MG/DL (0.1-1.0)
[2022-01-25 05:56] LABS: CREATININE SERUM 1.75 MG/DL (0.60-1.30)
[2022-01-25] MEDS: inSUlin ASPART (NovoLOG) 1 UNIT/0.01 ML (CHARGE PER UNIT) SC SCH ×4 (06:04→20:22)
[2022-01-25 07:42] LABS: MEAN CORPUSCULAR HEMOGLOBIN 30 pg (25-34); MEAN CORPUSCULAR HGB CONC 33 g/dL (32-36); MEAN CORPUSCULAR VOLUME 91 fL (80-99); MEAN PLATELET VOLUME 9.5 fL (9.0-12.2); PLATELET COUNT 196 10^3/uL (130-400); WHITE BLOOD COUNT 6.9 10^3/uL (4.3-11.0)
[2022-01-25 07:48] LABS: HEMATOCRIT 20 % (40-54); HEMOGLOBIN 6.7 g/dL (13.3-17.7)
--- NOTE | 2022-01-25 07:50 | Progress Note - Hospitalist ---
Subjective HPI/CC On Admission Date Seen by Provider: Jan 25, 2022 Time Seen by Provider: 06:00 Subjective/Events-last exam Doing well since extubation Hemoglobin 6.7 receiving 2 units of blood today May be able to transfer to fourth floor after the blood Dementia is significant Review of Systems General: Fatigue, Malaise Objective Exam Vital Signs Vital Signs Date Time Temp Pulse Resp B/P (MAP) Pulse Ox O2 Delivery O2 Flow Rate FiO2 01/25/22 10:00 102 20 120/81 (94) 97 Nasal Cannula 1.00 01/25/22 09:45 36.9 01/24/22 14:35 28 Capillary Refill : Less Than 3 Seconds General Appearance: No Apparent Distress, WD/WN, Chronically ill Respiratory: Lungs Clear, Normal Breath Sounds Cardiovascular: Regular Rate, Rhythm Neurologic/Psychiatric: Alert, Disoriented Results/Procedures Lab Laboratory Tests 01/25/22 05:11 01/25/22 07:35 Patient resulted labs reviewed. Assessment/Plan Assessment and Plan Assess & Plan/Chief Complaint Assessment: Status post respiratory failure with extubation Dementia Hip fracture Postop anemia requiring 2 units of blood today 01/25 Plan: Transfuse Moved to fourth floor if able LENNY CAVANAUGH DO Jan 25, 2022 07:50
[2022-01-25] MEDS ORDERED: NS IV 500 ML 500 ML IV SCH (08:15)
--- NOTE | 2022-01-25 09:30 | Cardiology Progress Note ---
Progress Note-Cardiology Events since last exam Date Seen by Provider: Jan 25, 2022 Time Seen by Provider: 09:25 Events since last exam We are following him due to history of hypertension. He was extubated overn ight. He was sitting up in a chair. He denied chest pain, dyspnea at rest, palpitations, syncope, or ankle edema. He does remember falling at home. Certain portions of this document may have been dictated utilizing voice recognition technology. Inherent to this technology, typographical and gra mmatical errors may exist. As much as I am diligent to identify and correct these mistakes, some errors may remain in the document. Vitals Last set of Vitals Signs Vital Signs 01/24/22 01/25/22 14:35 08:00 Temp 36.9 Pulse 103 Resp 21 B/P (MAP) 133/71 (91) Pulse Ox 97 O2 Delivery OxyMask O2 Flow Rate 4.00 FiO2 28 Labs Labs Laboratory Tests 01/25/22 05:11 01/25/22 07:35 Exam Vital Signs Vital Signs Date Time Temp Pulse Resp B/P (MAP) Pulse Ox O2 Delivery O2 Flow Rate FiO2 01/25/22 08:00 36.9 01/25/22 08:00 103 21 133/71 (91) 97 OxyMask 4.00 01/24/22 14:35 28 Physical Exam General: Alert. No acute distress. Eye: No xanthelasma. HENT: Normocephalic. Neck: Jugular venous pressure does not appear elevated. Respiratory: Lungs are clear to auscultation. Respirations are non-labored. Breath sounds are equal. Symmetrical chest wall expansion. Cardiovascular: Normal rate. Regular rhythm. No murmur. No gallop. No edema. Gastrointestinal: Soft. Normal bowel sounds. Skin: Warm. Dry. Neurologic: Alert and oriented to person, place, time. Cranial nerves 3-11 grossly intact. Psychiatric: Cooperative. Appropriate mood & affect. Labs Laboratory Tests Test 01/24/22 13:27 01/24/22 18:33 01/24/22 23:13 01/25/22 05:11 Range/Units Glucometer 197 H 200 H 201 H 70-110 MG/DL Sodium Level 137 135-145 MMOL/L Potassium Level 3.6 3.6-5.0 MMOL/L Chloride Level 101 98-107 MMOL/L Carbon Dioxide Level 21 21-32 MMOL/L Anion Gap 15 H 5-14 MMOL/L Blood Urea Nitrogen 34 H 7-18 MG/DL Creatinine 1.75 H 0.60-1.30 MG/DL Estimat Glomerular Filtration Rate 40 BUN/Creatinine Ratio 19 Glucose Level 170 H 70-105 MG/DL Calcium Level 9.3 8.5-10.1 MG/DL Corrected Calcium 10.0 8.5-10.1 MG/DL Magnesium Level 1.9 1.6-2.4 MG/DL Total Bilirubin 0.9 0.1-1.0 MG/DL Aspartate Amino Transf (AST/SGOT) 23 5-34 U/L Alanine Aminotransferase (ALT/SGPT) 12 0-55 U/L Alkaline Phosphatase 66 40-136 U/L Total Protein 6.0 L 6.4-8.2 GM/DL Albumin 3.1 L 3.2-4.5 GM/DL Test 01/25/22 05:23 01/25/22 07:35 Range/Units Glucometer 155 H 70-110 MG/DL White Blood Count 6.9 4.3-11.0 10^3/uL Red Blood Count 2.23 L 4.30-5.52 10^6/uL Hemoglobin 6.7 #*L 13.3-17.7 g/dL Hematocrit 20 *L 40-54 % Mean Corpuscular Volume 91 80-99 fL Mean Corpuscular Hemoglobin 30 25-34 pg Mean Corpuscular Hemoglobin Concent 33 32-36 g/dL Red Cell Distribution Width 14.6 H 10.0-14.5 % Platelet Count 196 130-400 10^3/uL Mean Platelet Volume 9.5 9.0-12.2 fL Diagnosis/Problems Diagnosis/Problems (1) Primary hypertension Assessment & Plan: Blood pressure has been reasonably controlled with amlodipine and losartan. (2) Mixed hyperlipidemia Assessment & Plan: Continue ezetimibe and niacin. I ordered a lipid panel. (3) Aortic regurgitation Assessment & Plan: His echocardiogram from this admission shows mild aortic regurgitation. This will need to be followed longitudinally. This should not be causing symptoms. (4) Pulmonary hypertension Assessment & Plan: His echocardiogram from this admission also showed mild pulmonary hypertension. I suspect this may be due to chronic underlying lung disease. This will also need to be followed longitudinally. (5) Acute kidney injury superimposed on chronic kidney disease Assessment & Plan: It appears as though he may have stage II chronic kidney disease but following surgery, had a rise in his creatinine. Some of this may have been related to acute blood loss anemia. He will be receiving a blood transfusion today. We will need to watch his renal function closely. This has improved. (6) Dementia Status: Chronic Assessment & Plan: Despite his reported history of dementia, he remembers following down and he is oriented x3. (7) Frailty Assessment & Plan: He currently seems to be clinically consistent with moderate frailty. (8) Electronic cigarette use Assessment & Plan: He needs to work on smoking cessation. JOSE MURPHY JR, MD Jan 25, 2022 09:30
[2022-01-25 09:36] LABS: TRIGLYCERIDES 178 MG/DL (<150); VLDL CHOLESTEROL 36 MG/DL (5-40)
[2022-01-25 09:41] LABS: CHOLESTEROL 125 MG/DL (< 200)
[2022-01-25 09:42] LABS: HDL CHOLESTEROL 27 MG/DL (40-60)
[2022-01-25] MEDS: PIPERACILLIN SODIUM/TAZOBACTAM 4.5 GM in NS (IVPB) 100 ML IV SCH ×3 (09:43→22:45)
--- NOTE | 2022-01-25 09:50 | Progress Note - Ortho ---
Progress Note Subjective Date of Exam 01/25/22 Chief Complaint POD#2 Cemented bipolar hemiarthroplasty right hip for a nondisplaced subcapital fracture HPI/Events since last exam Mr. Fajardo is 2 days postop cemented bipolar hemiarthroplasty right hip for a nondisplaced subcapital fracture. When I saw him he was up sitting in the chair and stated he was comfortable with minimal hip pain. He is also receiving a transfusion for hemoglobin of 6.7 this morning Review of Systems Reviewed and no additions or changes Allergies: Coded Allergies: [id number] Reductase Inhibitor (Verified Allergy, Unknown, 01/21/22) Home Meds Reported Medications Omeprazole (Omeprazole) 20 Mg Capsule.dr, 20 MG PO DAILY, CAP 01/22/22 Tadalafil (Tadalafil) 5 Mg Tablet, 5 MG PO DAILY, TAB 01/22/22 Pregabalin (Pregabalin) 25 Mg Capsule, 25 MG PO BID, CAP 01/22/22 Multivitamin (Multivitamin) 1 Each Tablet, 1 EACH PO DAILY, TAB 01/22/22 Cyanocobalamin (Vitamin B-12) (Vitamin B-12) 2,500 Mcg Tab.subl, 2500 MCG SL DAILY, TAB 01/21/22 Zinc Gluconate (Zinc) 50 Mg Tablet, 50 MG PO DAILY, TAB 01/21/22 Ascorbate Calcium (Vitamin C) 500 Mg Tablet, 500 MG PO DAILY, TAB 01/21/22 Mirabegron (Myrbetriq) 50 Mg Tab.er.24h, 50 MG PO HS, TAB 01/21/22 Clopidogrel Bisulfate (Clopidogrel) 75 Mg Tablet, 75 MG PO 1500, TAB 01/21/22 Sertraline HCl (Sertraline HCl) 100 Mg Tablet, 100 MG PO 1500, TAB 01/21/22 Cholecalciferol (Vitamin D3) (Vitamin D3) 25 Mcg (1000 Unit) Tablet, 25 MCG PO DAILY, TAB 01/21/22 Tamsulosin HCl (Flomax) 0.4 Mg Cap, 0.4 MG PO DAILY, CAP 03/28/19 Ezetimibe (Zetia) 10 Mg Tablet, 10 MG PO DAILY, TAB 03/28/19 Cetirizine HCl/Pseudoephedrine (Cetirizine-Pse ER 5-120 mg Tab) 5 Mg-120 Mg Tab.er.12h, 1 TAB PO Q12H, TAB 10/21/19 Aspirin/Acetaminophen/Caffeine (Excedrin Extra Strength Caplet) 1 Each Tablet, 1-2 TAB PO BID PRN for PAIN-MILD, TAB 03/28/19 [place] Fruit/Zinc Picoli ([place] 450 mg Capsule) 450 Mg-15 Mg Capsule, 1 CAP PO DAILY, CAP 03/28/19 Niacin (Inositol Niacinate) (Niacin 500 mg Capsule) 500 Mg Capsule, 500 MG PO HS, CAP 03/28/19 Amlodipine Besylate (Amlodipine Besylate) 5 Mg Tablet, 5 MG PO 1500, TAB 03/28/19 Glipizide (Glipizide) 5 Mg Tablet, 5 MG PO DAILY, TAB 03/28/19 Metformin HCl (Metformin HCl) 1,000 Mg Tablet, 1000 MG PO BID, TAB 03/28/19 Terazosin HCl (Terazosin HCl) 2 Mg Capsule, 2 MG PO HS, CAP 03/28/19 Losartan Potassium (Losartan Potassium) 100 Mg Tablet, 100 MG PO DAILY, TAB 03/28/19 Alprazolam (Alprazolam) 0.5 Mg Tablet, 0.5 MG PO HS, TAB 03/28/19 Discontinued Reported Medications Gabapentin (Gabapentin) 100 Mg Capsule, 100 MG PO HS, CAP 03/28/19 Aspirin (Aspirin EC) 325 Mg Tablet.dr, 325 MG PO DAILY, TAB 03/28/19 Multivit-Min/FA/Lycopene/Lut (Complete Multi 50+ Tablet) 1 Each Tablet, 1 TAB PO DAILY, TAB 03/28/19 Discontinued Scripts [Trospium Tablet] 20 MG TAB No Conflict Check, 20 MG PO DAILY@06,16, #30 TAB Prov:LENNY CAVANAUGH DO 04/01/19 Tolterodine Tartrate (Detrol LA) 4 Mg Cap, 4 MG PO HS, #30 CAP Prov:LENNY CAVANAUGH DO 04/01/19 Sennosides/Docusate Sodium (Senna-Time S Tablet) 1 Each Tablet, 2 EA PO BID, #60 TAB Prov:LENNY CAVANAUGH DO 04/01/19 Hydrocodone Bit/Acetaminophen (HYDROcodone/APAP 10/325 TABLET) 1 Each Tablet, 1- 2 EA PO Q4H PRN for PAIN-MODERATE, #30 TAB Prov:LENNY CAVANAUGH DO 04/01/19 Baclofen (Baclofen) 10 Mg Tablet, 10 MG PO Q8HR PRN for MUSCLE SPASM, #30 TAB Prov:LENNY CAVANAUGH DO 04/01/19 Objective Exam Constitutional: [] HEENT: [] Neck: [] Cardiovascular: [] Respiratory: [] Gastrointestinal: [] Genitourinary: [] Skin: [] Back/Spine: [] Extremities: [Dressing is intact and has been changed yet. There is some bloody drainage on the dressing. I peeled back the dressing and there is some bloody drainage but the incision looks good without redness Good positional leg compared to the left. Minimal pain right calf. Than left calf. Negative Homans. He states he can feel his toes with equal sensation to the left. Equal pulses. Mild pain with gentle range of motion right hip] Neurologic: [] Psychiatric: [] Hematologic/lymphatic/immunologic: [] Vital Signs Vital Signs Date Time Temp Pulse Resp B/P (MAP) Pulse Ox O2 Delivery O2 Flow Rate FiO2 01/25/22 09:24 36.7 105 17 128/82 96 Nasal Cannula 1.00 01/25/22 08:00 36.9 01/25/22 08:00 103 21 133/71 (91) 97 OxyMask 4.00 01/25/22 07:00 110 18 141/80 (100) 97 OxyMask 4.00 01/25/22 06:00 109 16 144/79 (100) 97 OxyMask 4.00 01/25/22 05:00 102 18 136/77 (96) 100 OxyMask 4.00 01/25/22 04:21 36.6 01/25/22 04:00 110 15 122/75 (91) 94 OxyMask 4.00 01/25/22 04:00 95 OxyMask 4.00 01/25/22 03:00 114 15 138/84 (102) OxyMask 4.00 01/25/22 02:00 105 21 129/73 (91) 97 OxyMask 4.00 01/25/22 01:00 97 21 132/69 (90) 100 OxyMask 4.00 01/25/22 01:00 100 01/25/22 00:03 High Flow N/C 4.00 01/25/22 00:03 37.1 01/25/22 00:00 37.0 01/25/22 00:00 102 18 136/77 (96) 100 OxyMask 4.00 01/24/22 23:59 95 OxyMask 4.00 01/24/22 23:00 108 22 140/98 (112) 99 OxyMask 4.00 01/24/22 22:00 104 21 138/78 (98) 98 OxyMask 4.00 01/24/22 21:00 98 22 129/72 (91) 96 OxyMask 4.00 01/24/22 20:00 95 OxyMask 4.00 01/24/22 20:00 98 20 130/77 (94) 99 OxyMask 4.00 01/24/22 19:32 37.1 96 20 133/78 (96) 96 OxyMask 4.00 01/24/22 19:00 100 01/24/22 18:00 96 16 109/76 (87) 97 OxyMask 4.00 01/24/22 17:00 98 20 121/70 (87) 97 OxyMask 4.00 01/24/22 16:00 101 13 115/66 (82) 97 OxyMask 4.00 01/24/22 15:29 95 OxyMask 5.00 01/24/22 15:00 105 14 124/76 (92) 97 OxyMask 4.00 01/24/22 14:56 OxyMask 4.00 01/24/22 14:36 97 High Flow N/C 4.00 01/24/22 14:35 103 18 94 28 01/24/22 14:35 OxyMask 5.00 01/24/22 14:00 101 17 138/78 (98) 94 Mechanical Ventilator 28.00 01/24/22 13:38 98 17 94 28 01/24/22 13:00 101 13 113/75 (88) 96 Mechanical Ventilator 28.00 01/24/22 12:43 103 01/24/22 12:00 103 16 116/72 (87) 97 Mechanical Ventilator 30.00 01/24/22 12:00 97 Mechanical Ventilator 30 01/24/22 12:00 40 01/24/22 11:00 107 15 116/75 (89) 96 Mechanical Ventilator 30.00 01/24/22 10:00 109 15 94 30 01/24/22 10:00 109 13 145/80 (101) 96 Mechanical Ventilator 30.00 I & O 01/25/22 07:00 Intake Total 1330 ml Output Total 1050 ml Balance 280 ml Lab Results Laboratory Tests 01/24/22 13:27: Glucometer 197H 01/24/22 18:33: Glucometer 200H 01/24/22 23:13: Glucometer 201H 01/25/22 05:11: Sodium Level 137, Potassium Level 3.6, Chloride Level 101, Carbon Dioxide Level 21, Anion Gap 15H, Blood Urea Nitrogen 34H, Creatinine 1.75H, Estimat Glomerular Filtration Rate 40, BUN/Creatinine Ratio 19, Glucose Level 170H, Calcium Level 9.3, Corrected Calcium 10.0, Magnesium Level 1.9, Total Bilirubin 0.9, Aspartate Amino Transf (AST/SGOT) 23, Alanine Aminotransferase (ALT/SGPT) 12, Alkaline Phosphatase 66, Total Protein 6.0L, Albumin 3.1L, Triglycerides Level 178H, Cholesterol Level 125, LDL Cholesterol Direct 70, VLDL Cholesterol 36, HDL Cholesterol 27L 01/25/22 05:23: Glucometer 155H 01/25/22 07:35: White Blood Count 6.9, Red Blood Count 2.23L, Hemoglobin 6.7#*L, Hematocrit 20*L , Mean Corpuscular Volume 91, Mean Corpuscular Hemoglobin 30, Mean Corpuscular Hemoglobin Concent 33, Red Cell Distribution Width 14.6H, Platelet Count 196, Mean Platelet Volume 9.5 Microbiology 01/23/22 Gram Stain - Final, Resulted 01/23/22 Sputum Culture - Preliminary, Resulted Usual upper respiratory barney 01/21/22 Urine Culture - Final, Complete Gram Pos Mixed Bacterial Barney 01/21/22 Blood Culture - Final, Complete Staphylococcus capitis Assessment and Plan Assessment 2 days postop Problem List 2 days postop cemented bipolar hemiarthroplasty right hip for a nondisplaced subcapital fracture. Acute blood loss anemia secondary to surgery and patient being on heparin preop Plan Continue out of bed to chair as tolerated. Initiate physical therapy after transfusion now that the patient is extubated Final Diagonsis Nondisplaced subcapital fracture right hip status post cemented bipolar hemiarthroplasty Level of the visit: Level 3 TEMI CHAVEZ MD Jan 25, 2022 09:50
--- NOTE | 2022-01-25 09:57 | Physical Therapy Evaluation ---
PT Evaluation-General Medical Diagnosis Admission Date Jan 21, 2022 at 14:48 Medical Diagnosis: right hip fracture Onset Date: Jan 21, 2022 Therapy Diagnosis Therapy Diagnosis: debility/weakness Precautions Precautions/Isolations: Aspiration, Fall Prevention, Standard Precautions, Pressure Ulcer Weight Bear Status Right Lower Extremity: Right Weight Bearing/Tolerated Left Lower Extremity: Left Full Weight Bearing THR precautions Referral Physician: Keisha Reason for Referral: Evaluation/Treatment Medical History Pertinent Medical History: CAD, Dementia, HTN, Neuropathy Current History EMS secondary to multiple falls at home Reviewed History: Yes Social History Home: Single Level Current Living Status: Spouse Prior Prior Level of Function SCALE: Activities may be completed with or without assistive devices. 4-Uhbblotokn-lozaapg completes the activity by him/herself with no assistance from a helper. 5-Set-up or Clean-up Assistance-helper sets up or cleans up; patient completes activity. [place] assists only prior to or following the activity. 4-Supervision or Touching Assistance-helper provides verbal cues and/or touching/steadying and/or contact guard assistance as patient completes activity. Assistance may be provided throughout the activity or intermittently. 3-Partial/Moderate Assistance-helper does LESS THAN HALF the effort. [place] lifts, holds or supports trunk or limbs, but provides less than half the effort. 2-Substantial/Maximal Assistance-helper does MORE THAN HALF the effort. [place] lifts or holds trunk or limbs and provides more than half the effort. 2-Dtxljselz-yocbsh does ALL the effort. Patient does none of the effort to complete the activity. Or, the assistance of 2 or more helpers is required for the patient to complete the activity. If activity was not attempted, code reason: 7-Patient Refused. 9-Not Applicable-not attempted and the patient did not perform the activity before the current illness, exacerbation or injury. 10-Not Attempted due to Environmental Limitations-(lack of equipment, weather restraints, etc.). 88-Not Attempted due to Medical Conditions or Safety Concerns. Bed Mobility: 6 Transfers (B,C,W/C): 6 Gait: 6 Indoor Mobility (Ambulation): Independent PT Evaluation-Current Subjective Patient extubated yesterday. Alert and agrees to PT. Objective Patient Orientation: Person Attachments: Oxygen, Hamilton Catheter, IV ROM/Strength ROM Lower Extremities right THR precautions/left LE WFL Strength Lower Extremities right LE 3-/5 grossly/left LE 3/5 grossly (unable to formally test due to inability to follow direction) Integumentary/Posture Integumentary refer to nursing notes Bladder Incontinence: Hamilton Cath Posture slightly kyphotic Neuromuscular (Tone, Coordination, Reflexes) diminished coordination due to weakness Sensory Vision: Functional Hearing: Impaired Transfers Lying to Sitting/Side of Bed(Q: 1 Sit to Stand (QC): 1 Chair/Xgl-yp-Jpjhq Xfer(QC): 1 patient unable to perform sit to stand to FWW and required dependent assist with PT. Patient unable to advance either LE with transfer Gait Does the Patient Walk?: No and Walking Goal IS indicated Walk 10 feet (QC): 88 Walk 50 ft with 2 Turns(QC): 88 Walk 150 ft (QC): 88 Gait Assistive Device: FWW Balance Sitting Static: Fair Sitting Dynamic: Fair Standing Static: Poor Standing Dynamic: Poor Assessment/Needs 76 y.o. male, will benefit from skilled PT to address functional strength and mo bility to improve current LOF. Patient is currently at high risk for falls and dislocation due to patient's inability to advance either LE's with transfers and will hold right LE in IR. RN educated on importance of preventing this with positioning with abduction pillow in bed and chair. Abduction pillow in place with patient in recliner. Rehab Potential: Fair PT Automobile Brake Bonder Goals Long-Term Goals PT Automobile Brake Bonder Goals Time Frame: Feb 08, 2022 Roll Left & Right (QC): 4 Sit to Lying (QC): 4 Lying-Sitting on Side/Bed(QC): 4 Sit to Stand (QC): 4 Chair/Otj-qp-Ktsnn Xfer(QC): 4 Toilet Transfer (QC): 4 Walk 10 feet (QC): 4 Walk 50ft with 2 Turns (QC): 4 Walk 150 ft (QC): 4 PT Plan Problem List Problem List: Activity Tolerance, Functional Strength, Safety, Balance, Gait, Transfer, Bed Mobility Treatment/Plan Treatment Plan: Continue Plan of Care Treatment Plan: Bed Mobility, Education, Functional Activity Edmund, Functional Strength, Gait, Safety, Therapeutic Exercise, Transfers Treatment Duration: Feb 08, 2022 Frequency: 11 times per week Estimated Hrs Per Day: .5 hour per day Time/GCodes Time In: 720 Time Out: 743 Total Billed Treatment Time: 23 Total Billed Treatment 1 visit EVModC 10 min FA 13 min TATI,JAYDA PT Jan 25, 2022 09:57
--- NOTE | 2022-01-25 10:06 | Tele-ICU Progress Note ---
Subjective Date Seen by a Provider: Jan 25, 2022 Time Seen by a Provider: 10:05 Subjective/Events-last exam (Tele-ICU Physician , Progress Note ) Available chart/ vitals / labs / Images reviewed Video assessment done using teleICU camera, rest of exam as per RN Discussed with RN Events overnight : Afebrile - 37 .5 hemodynamically stable Respiratory - 4l I/O =neg Drips: lr 125 Pressors- no Consultants: cards, ortho Hospital course: (01/21) 76M admitted to the floor s/p fall with right femoral neck fracture (01/23) pt tx from OR s/p Cemented bipolar hemiarthroplasty of the right hip, pt remains intubated 01/24 - rr 18, 550 , 30% +5 (01/24) Pt extubated 01/25 - - Hb 6.7 ,no clear sign of bleeding ,-transfusing 1 U PRBC , hoding lovenox A/P Acute resp failure - intubated 01/23 after Sx -(01/24) Pt extubated Hypoxia - presented on admission : needed 4 l in ER , 10 L O2 prior to Sx -PE suspected - CTA was not PE protocol , no huge clots seen , no right side strain on ECHO - heparin gtt initiated --> Lovenox fuill dose post op - HOLDING 01/25 WITH HB 6.7 - on 4L o2 now Anemia - mild on admission HB dropped post op - Hb 6.7 on 01/25 - no0 clear sign of bleeding , ortho MD examined sx site -transfusing 1 U PRBC 01/25 ( hoding lovenox ) Closed right hip fracture after mechanical fall - S/P right hip sx 01/23 - pain control - as per ortho KATH in 01/24 - no sign hypotension observed , but received contrast on 01/21 - hydration - > slow improvement , follow ID - blood cx on admission- [facility] - ancef post op - UA negative , CT chest on admission - no PNA , CXR 01/23 and 01/22 - RUL opacification ( possible PNA -) spuitum cx done 01/23 possible PNA RUL - spuitum cx done 01/23 , PCT 0.4 , fever 37.6 - starting zosyn 01/24 ECHO 01/22 - EF 60 % , gd 1 dst dsfnc , RVSP 45mmHg Hyponatremia , mild -resolved DM - ISS Dysphagia ( on admission ) - preop - nectar-thick) liquids - to cont , rteassess thursday by rere Dementia - CT head: No acute disease fter fall History of rectal cancer, - as per abbytes, intolerant to chemotherapy, sees treatment with chemo or r adiation therapy Lines : periph , (Central Line Necessity Reviewed) Hamilton: + OG: Nutrition: to start Analgesia: fentanyl Anxiety/ delirium VTE Prophylaxis: lovenox 70 bis Stress Ulcer Prophylaxis: ppi Plans in collaboration with bedside consultants and IM MDs. Discussed with RN to reach out if any questions or concerns A total of33 minutes of critical care time was devoted to this patient today, required to treat and/or prevent further deterioration of critical care condition ( as above ) . Sepsis Event Evaluation Height, Weight, BMI Height: '" Weight: lbs. oz. kg; 23.40 BMI Method: Exam Exam Patient acknowledged, consented, and participated in this virtual visit which was conducted using real time audio/video Vital Signs Date Time Temp Pulse Resp B/P (MAP) Pulse Ox O2 Delivery O2 Flow Rate FiO2 01/25/22 09:45 36.9 101 20 126/72 95 Nasal Cannula 1.00 01/25/22 09:25 95 Nasal Cannula 1.00 01/25/22 09:24 36.7 105 17 128/82 96 Nasal Cannula 1.00 01/25/22 08:15 Nasal Cannula 4.00 01/25/22 08:00 36.9 01/25/22 08:00 103 21 133/71 (91) 97 OxyMask 4.00 01/25/22 07:00 110 18 141/80 (100) 97 OxyMask 4.00 01/25/22 06:00 109 16 144/79 (100) 97 OxyMask 4.00 01/25/22 05:00 102 18 136/77 (96) 100 OxyMask 4.00 01/25/22 04:21 36.6 01/25/22 04:00 110 15 122/75 (91) 94 OxyMask 4.00 01/25/22 04:00 95 OxyMask 4.00 01/25/22 03:00 114 15 138/84 (102) OxyMask 4.00 01/25/22 02:00 105 21 129/73 (91) 97 OxyMask 4.00 01/25/22 01:00 97 21 132/69 (90) 100 OxyMask 4.00 01/25/22 01:00 100 01/25/22 00:03 High Flow N/C 4.00 01/25/22 00:03 37.1 01/25/22 00:00 37.0 01/25/22 00:00 102 18 136/77 (96) 100 OxyMask 4.00 01/24/22 23:59 95 OxyMask 4.00 01/24/22 23:00 108 22 140/98 (112) 99 OxyMask 4.00 01/24/22 22:00 104 21 138/78 (98) 98 OxyMask 4.00 01/24/22 21:00 98 22 129/72 (91) 96 OxyMask 4.00 01/24/22 20:00 95 OxyMask 4.00 01/24/22 20:00 98 20 130/77 (94) 99 OxyMask 4.00 01/24/22 19:32 37.1 96 20 133/78 (96) 96 OxyMask 4.00 01/24/22 19:00 100 01/24/22 18:00 96 16 109/76 (87) 97 OxyMask 4.00 01/24/22 17:00 98 20 121/70 (87) 97 OxyMask 4.00 01/24/22 16:00 101 13 115/66 (82) 97 OxyMask 4.00 01/24/22 15:29 95 OxyMask 5.00 01/24/22 15:00 105 14 124/76 (92) 97 OxyMask 4.00 01/24/22 14:56 OxyMask 4.00 01/24/22 14:36 97 High Flow N/C 4.00 01/24/22 14:35 103 18 94 28 01/24/22 14:35 OxyMask 5.00 01/24/22 14:00 101 17 138/78 (98) 94 Mechanical Ventilator 28.00 01/24/22 13:38 98 17 94 28 01/24/22 13:00 101 13 113/75 (88) 96 Mechanical Ventilator 28.00 01/24/22 12:43 103 01/24/22 12:00 103 16 116/72 (87) 97 Mechanical Ventilator 30.00 01/24/22 12:00 97 Mechanical Ventilator 30 01/24/22 12:00 40 01/24/22 11:00 107 15 116/75 (89) 96 Mechanical Ventilator 30.00 I & O 01/25/22 07:00 Intake Total 1330 ml Output Total 1050 ml Balance 280 ml Height & Weight Height: '" Weight: lbs. oz. kg; 23.40 BMI Method: General Appearance: No Apparent Distress, WD/WN HEENT: PERRL/EOMI, Normal ENT Inspection, Pharynx Normal Neck: Full Range of Motion, Normal Inspection Respiratory: Lungs Clear, Decreased Breath Sounds, Rhonci Cardiovascular: Regular Rate, Rhythm Capillary Refill: Less Than 3 Seconds Peripheral Pulses: 2+ Dorsalis Pedis (R); 0 Left Dors-Pedis (L) Gastrointestinal: normal bowel sounds, non tender, soft Neurologic/Psychiatric: Alert, No Motor/Sensory Deficits, Normal Mood/Affect Results Lab Laboratory Tests 01/24/22 04:53 01/25/22 05:11 01/25/22 07:35 Assessment/Plan Assessment/Plan 1 NEPTALI ONEAL MD Jan 25, 2022 10:06
[2022-01-25] MEDS: VITAMIN D3 25 MCG (1,000 UNITS) TABLET PO SCH (10:13)
[2022-01-25] MEDS: PANTOPRAZOLE 20 MG TABLET (PROTONIX) PO SCH (10:13)
[2022-01-25] MEDS: eZETimibe 10 MG (ZETIA) TABLET PO SCH (10:13)
[2022-01-25] MEDS: PSEUDOEPHEDRINE HCL 30 MG (SUDAFED) TAB PO SCH ×2 (10:13→20:24)
[2022-01-25] MEDS: PREGABALIN 25 MG (LYRICA) CAPSULE PO SCH ×2 (10:13→20:23)
[2022-01-25] MEDS: LORATADINE (CLARITIN) 10 MG TAB PO SCH (10:13)
[2022-01-25] MEDS: tadalafiL 5 MG TABLET (NON-FORMULARY) PO SCH (10:14)
[2022-01-25] MEDS: TAMSULOSIN 0.4 MG (FLOMAX) CAP PO SCH (10:14)
[2022-01-25] MEDS: LOSARTAN 100 MG (COZAAR) TABLET PO SCH (10:14)
[2022-01-25] MEDS: LACTATED RINGERS 1,000 ML IV SCH (11:07)
[2022-01-25] MEDS: PROPOFOL DRIP (ICU) 100 ML IV SCH (11:08)
[2022-01-25 14:08] LABS: HEMOGLOBIN 8.5 g/dL (13.3-17.7)
[2022-01-25] MEDS: SERTRALINE 100 MG (ZOLOFT) TAB PO SCH (15:07)
[2022-01-25] MEDS: amLODIPine 5 MG (NORVASC) TAB PO SCH (15:07)
[2022-01-25] MEDS: NIACIN ER (NIASPAN) 500 MG TAB PO SCH (20:23)
[2022-01-25] MEDS: MIRABEGRON 25 MG TAB (MYRBETRIQ) PO SCH (20:23)
[2022-01-25] MEDS: TERAZOSIN 1 MG CAP (HYTRIN) PO SCH (20:24)
[2022-01-25] MEDS: ALPRAZolam 0.5 MG (XANAX) TAB PO SCH (20:24)
[2022-01-25] MEDS: HYDROcodone/APAP 5 MG/325 MG (LORTAB) TAB PO PRN (20:24)
[2022-01-26] VITALS (9 sets, daily range): BP systolic 114–160; BP diastolic 57–78
[2022-01-26] MEDS: inSUlin ASPART (NovoLOG) 1 UNIT/0.01 ML (CHARGE PER UNIT) SC SCH ×4 (05:51→20:35)
[2022-01-26] MEDS: PIPERACILLIN SODIUM/TAZOBACTAM 4.5 GM in NS (IVPB) 100 ML IV SCH ×3 (05:52→22:33)
[2022-01-26] MEDS: LACTATED RINGERS 1,000 ML IV SCH ×2 (05:53→22:09)
[2022-01-26 06:29] LABS: BASOPHILS % (AUTO) 1 % (0-10); EOSINOPHILS # (AUTO) 0.2 10^3/uL (0.0-0.3); EOSINOPHILS % (AUTO) 3 % (0-10); LYMPHOCYTES # (AUTO) 0.9 10^3/uL (1.0-4.0); LYMPHOCYTES % (AUTO) 14 % (12-44); MEAN CORPUSCULAR HEMOGLOBIN 30 pg (25-34); MEAN CORPUSCULAR HGB CONC 34 g/dL (32-36); MEAN CORPUSCULAR VOLUME 88 fL (80-99); MEAN PLATELET VOLUME 10.1 fL (9.0-12.2); MONOCYTES # (AUTO) 0.8 10^3/uL (0.0-1.0); MONOCYTES % (AUTO) 13 % (0-12); NEUTROPHILS # (AUTO) 4.3 10^3/uL (1.8-7.8); NEUTROPHILS % (AUTO) 66 % (42-75); PLATELET COUNT 199 10^3/uL (130-400); WHITE BLOOD COUNT 6.5 10^3/uL (4.3-11.0)
[2022-01-26 06:41] LABS: HEMATOCRIT 19 % (40-54); HEMOGLOBIN 6.6 g/dL (13.3-17.7)
[2022-01-26 06:46] LABS: ALBUMIN 2.7 GM/DL (3.2-4.5); POTASSIUM 3.2 MMOL/L (3.6-5.0)
[2022-01-26 06:47] LABS: CALCIUM 8.7 MG/DL (8.5-10.1)
[2022-01-26 06:49] LABS: TOTAL PROTEIN 5.1 GM/DL (6.4-8.2)
[2022-01-26 06:51] LABS: BILIRUBIN,TOTAL 0.8 MG/DL (0.1-1.0)
[2022-01-26 06:52] LABS: CREATININE SERUM 1.63 MG/DL (0.60-1.30)
--- NOTE | 2022-01-26 08:01 | Progress Note - Hospitalist ---
Subjective HPI/CC On Admission Date Seen by Provider: Jan 26, 2022 Time Seen by Provider: 11:30 Subjective/Events-last exam Doing better Receiving the 2nd unit of blood today that I had held yesterday at bedside Talked in-depth about his neuropathy and Neurology and back surgery residual and the fact his dementia is a lot worse Holding Lovenox due to severe anemia IRF versus SNF Rectal carcinoma had been treated with radiation at and that caused a lot of issues and he just wanted to focus on quality of life and not quantity Review of Systems General: Fatigue, Malaise Neurological: Confusion Objective Exam Vital Signs Vital Signs Date Time Temp Pulse Resp B/P (MAP) Pulse Ox O2 Delivery O2 Flow Rate FiO2 01/26/22 16:00 100 01/26/22 16:00 37.0 20 136/67 (90) 96 Nasal Cannula 2.00 01/24/22 14:35 28 Capillary Refill : Less Than 3 Seconds General Appearance: No Apparent Distress, WD/WN, Chronically ill, Thin Respiratory: Lungs Clear, Normal Breath Sounds, Decreased Breath Sounds Cardiovascular: Regular Rate, Rhythm Neurologic/Psychiatric: Alert, Oriented x3, Disoriented Results/Procedures Lab Laboratory Tests 01/26/22 05:41 Patient resulted labs reviewed. Assessment/Plan Assessment and Plan Assess & Plan/Chief Complaint Assessment: Status post respiratory failure with extubation Dementia Hip fracture Postop anemia requiring 2nd unit of blood today 01/27 after 1st unit yesterday in ICU Neuropathy severe Lumbar spine surgery in the past BPH HTN HLP Hamilton cath in place Plan: Transfuse Moved to fourth floor if able Hold Lovenox LENNY CAVANAUGH DO Jan 26, 2022 08:01
[2022-01-26] MEDS: tadalafiL 5 MG TABLET (NON-FORMULARY) PO SCH (08:33)
[2022-01-26] MEDS: eZETimibe 10 MG (ZETIA) TABLET PO SCH (08:34)
[2022-01-26] MEDS: LORATADINE (CLARITIN) 10 MG TAB PO SCH (08:35)
[2022-01-26] MEDS: VITAMIN D3 25 MCG (1,000 UNITS) TABLET PO SCH (08:35)
[2022-01-26] MEDS: LOSARTAN 100 MG (COZAAR) TABLET PO SCH (08:35)
[2022-01-26] MEDS: TAMSULOSIN 0.4 MG (FLOMAX) CAP PO SCH (08:35)
[2022-01-26] MEDS: PSEUDOEPHEDRINE HCL 30 MG (SUDAFED) TAB PO SCH ×2 (08:35→20:34)
[2022-01-26] MEDS: PREGABALIN 25 MG (LYRICA) CAPSULE PO SCH ×2 (08:35→20:35)
[2022-01-26] MEDS: POTASSIUM BICARB 20 MEQ (EFFER-K) TABLET PO SCH (08:35)
[2022-01-26] MEDS: PANTOPRAZOLE 20 MG TABLET (PROTONIX) PO SCH (08:35)
--- NOTE | 2022-01-26 08:54 | Physical Therapy Daily Note ---
PT Daily Note-Current Subjective Patient is lethargic on this date due to critically low Hgb. Patient's bed is wet requiring a change. Mental Status Patient Orientation: Person Attachments: Oxygen, Hamilton Catheter, IV Transfers SCALE: Activities may be completed with or without assistive devices. 1-Ydtvtythfu-deutung completes the activity by him/herself with no assistance from a helper. 5-Set-up or Clean-up Assistance-helper sets up or cleans up; patient completes activity. [place] assists only prior to or following the activity. 4-Supervision or Touching Assistance-helper provides verbal cues and/or touching/steadying and/or contact guard assistance as patient completes activity. Assistance may be provided throughout the activity or intermittently. 3-Partial/Moderate Assistance-helper does LESS THAN HALF the effort. [place] lifts, holds or supports trunk or limbs, but provides less than half the effort. 2-Substantial/Maximal Assistance-helper does MORE THAN HALF the effort. [place] lifts or holds trunk or limbs and provides more than half the effort. 7-Cwzohelhm-bzgdqq does ALL the effort. Patient does none of the effort to com plete the activity. Or, the assistance of 2 or more helpers is required for the patient to complete the activity. If activity was not attempted, code reason: 7-Patient Refused. 9-Not Applicable-not attempted and the patient did not perform the activity before the current illness, exacerbation or injury. 10-Not Attempted due to Environmental Limitations-(lack of equipment, weather restraints, etc.). 88-Not Attempted due to Medical Conditions or Safety Concerns. Sit to Lying (QC): 1 ( x 2) Lying to Sitting/Side of Bed(Q: 1 (x 2) Sit to Stand (QC): 2 (x 4 sets with PT use of gait belt and blocking right knee) Weight Bearing Right Lower Extremity: Right Weight Bearing/Tolerated Left Lower Extremity: Left Full Weight Bearing THR precautions Gait Training Does the Patient Walk?: No and Walking Goal IS indicated Exercises Supine Ex: Ankle pumps, Heel Slides, Straight leg raise Supine Reps: 15 (x 2 sets AAROM) Seated Therapy Exercises: Long arc quads Seated Reps: 15 (AAROM) Assessment PCT assist to change bedding while PT performed sit to stand transfers max assist x 4 sets. Patient unable to take steps or stand to FWW on this date. Patient not safe for OOB activity due to critically low Hgb. Patient returned to bed with SCD's and abduction pillow in place. PT Sampling Theory Teacher Goals [facility] Goals PT Sampling Theory Teacher Goals Time Frame: Feb 08, 2022 Roll Left & Right (QC): 4 Sit to Lying (QC): 4 Lying-Sitting on Side/Bed(QC): 4 Sit to Stand (QC): 4 Chair/Igu-dg-Mkzbn Xfer(QC): 4 Toilet Transfer (QC): 4 Walk 10 feet (QC): 4 Walk 50ft with 2 Turns (QC): 4 Walk 150 ft (QC): 4 PT Plan Treatment/Plan Treatment Plan: Continue Plan of Care Treatment Plan: Bed Mobility, Education, Functional Activity Edmund, Functional Strength, Gait, Safety, Therapeutic Exercise, Transfers Treatment Duration: Feb 08, 2022 Frequency: 11 times per week Estimated Hrs Per Day: .5 hour per day Time/GCodes Time In: 815 Time Out: 843 Total Billed Treatment Time: 28 Total Billed Treatment 1 visit FA 15 min EX 13 min JAYDA DUFFY PT Jan 26, 2022 08:53
[2022-01-26] MEDS ORDERED: NS IV 500 ML 500 ML IV PRN (09:00)
[2022-01-26] MEDS: SERTRALINE 100 MG (ZOLOFT) TAB PO SCH (14:09)
[2022-01-26] MEDS: amLODIPine 5 MG (NORVASC) TAB PO SCH (14:09)
[2022-01-26] MEDS: HYDROcodone/APAP 5 MG/325 MG (LORTAB) TAB PO PRN ×2 (18:45→22:47)
--- NOTE | 2022-01-26 19:19 | Progress Note - Ortho ---
Progress Note Subjective Date of Exam 01/26/22 Chief Complaint POD#3 cemented bipolar hemiarthrop;asty HPI/Events since last exam Patient is 3 days post op. Hgb 6.6 this am. presently being transfused. In bed and sleeping Review of Systems No changes Allergies: Coded Allergies: Zqsrtfb-IBI-EgC Reductase Inhibitor (Verified Allergy, Unknown, 01/21/22) Home Meds Reported Medications Omeprazole (Omeprazole) 20 Mg Capsule.dr, 20 MG PO DAILY, CAP 01/22/22 Tadalafil (Tadalafil) 5 Mg Tablet, 5 MG PO DAILY, TAB 01/22/22 Pregabalin (Pregabalin) 25 Mg Capsule, 25 MG PO BID, CAP 01/22/22 Multivitamin (Multivitamin) 1 Each Tablet, 1 EACH PO DAILY, TAB 01/22/22 Cyanocobalamin (Vitamin B-12) (Vitamin B-12) 2,500 Mcg Tab.subl, 2500 MCG SL DAILY, TAB 01/21/22 Zinc Gluconate (Zinc) 50 Mg Tablet, 50 MG PO DAILY, TAB 01/21/22 Ascorbate Calcium (Vitamin C) 500 Mg Tablet, 500 MG PO DAILY, TAB 01/21/22 Mirabegron (Myrbetriq) 50 Mg Tab.er.24h, 50 MG PO HS, TAB 01/21/22 Clopidogrel Bisulfate (Clopidogrel) 75 Mg Tablet, 75 MG PO 1500, TAB 01/21/22 Sertraline HCl (Sertraline HCl) 100 Mg Tablet, 100 MG PO 1500, TAB 01/21/22 Cholecalciferol (Vitamin D3) (Vitamin D3) 25 Mcg (1000 Unit) Tablet, 25 MCG PO DAILY, TAB 01/21/22 Tamsulosin HCl (Flomax) 0.4 Mg Cap, 0.4 MG PO DAILY, CAP 03/28/19 Ezetimibe (Zetia) 10 Mg Tablet, 10 MG PO DAILY, TAB 03/28/19 Cetirizine HCl/Pseudoephedrine (Cetirizine-Pse ER 5-120 mg Tab) 5 Mg-120 Mg Tab.er.12h, 1 TAB PO Q12H, TAB 03/28/19 Aspirin/Acetaminophen/Caffeine (Excedrin Extra Strength Caplet) 1 Each Tablet, 1-2 TAB PO BID PRN for PAIN-MILD, TAB 03/28/19 Saw [place] Fruit/Zinc Picoli (Saw [place] 450 mg Capsule) 450 Mg-15 Mg Capsule, 1 CAP PO DAILY, CAP 03/28/19 Niacin (Inositol Niacinate) (Niacin 500 mg Capsule) 500 Mg Capsule, 500 MG PO HS, CAP 03/28/19 Amlodipine Besylate (Amlodipine Besylate) 5 Mg Tablet, 5 MG PO 1500, TAB 03/28/19 Glipizide (Glipizide) 5 Mg Tablet, 5 MG PO DAILY, TAB 03/28/19 Metformin HCl (Metformin HCl) 1,000 Mg Tablet, 1000 MG PO BID, TAB 03/28/19 Terazosin HCl (Terazosin HCl) 2 Mg Capsule, 2 MG PO HS, CAP 03/28/19 Losartan Potassium (Losartan Potassium) 100 Mg Tablet, 100 MG PO DAILY, TAB 03/28/19 Alprazolam (Alprazolam) 0.5 Mg Tablet, 0.5 MG PO HS, TAB 03/28/19 Discontinued Reported Medications Gabapentin (Gabapentin) 100 Mg Capsule, 100 MG PO HS, CAP 03/28/19 Aspirin (Aspirin EC) 325 Mg Tablet.dr, 325 MG PO DAILY, TAB 03/28/19 Multivit-Min/FA/Lycopene/Lut (Complete Multi 50+ Tablet) 1 Each Tablet, 1 TAB PO DAILY, TAB 03/28/19 Discontinued Scripts [Trospium Tablet] 20 MG TAB No Conflict Check, 20 MG PO DAILY@06,16, #30 TAB Prov:LENNY CAVANAUGH DO 04/01/19 Tolterodine Tartrate (Detrol LA) 4 Mg Cap, 4 MG PO HS, #30 CAP Prov:LENNY CAVANAUGH DO 04/01/19 Sennosides/Docusate Sodium (Senna-Time S Tablet) 1 Each Tablet, 2 EA PO BID, #60 TAB Prov:LENNY CAVANAUGH DO 04/01/19 Hydrocodone Bit/Acetaminophen (HYDROcodone/APAP 10/325 TABLET) 1 Each Tablet, 1- 2 EA PO Q4H PRN for PAIN-MODERATE, #30 TAB Prov:LENNY CAVANAUGH DO 04/01/19 Baclofen (Baclofen) 10 Mg Tablet, 10 MG PO Q8HR PRN for MUSCLE SPASM, #30 TAB Prov:LENNY CAVANAUGH DO 04/01/19 Objective Exam Constitutional: [] HEENT: [] Neck: [] Cardiovascular: [] Respiratory: [] Gastrointestinal: [] Genitourinary: [] Skin: [] Back/Spine: [] Extremities: []Dressing intact. changed yesterday. Leg in good alignment. equal pulses. No calf swelling. Neurologic: [] Psychiatric: [] Hematologic/lymphatic/immunologic: [] Vital Signs Vital Signs Date Time Temp Pulse Resp B/P (MAP) Pulse Ox O2 Delivery O2 Flow Rate FiO2 01/26/22 16:00 100 01/26/22 16:00 37.0 130 20 136/67 (90) 96 Nasal Cannula 2.00 01/26/22 12:07 34.7 91 16 114/67 95 Nasal Cannula 2.00 01/26/22 11:50 37.5 89 20 128/78 (95) 96 Nasal Cannula 2.00 01/26/22 09:57 37.6 99 16 114/60 95 Nasal Cannula 2.00 01/26/22 09:47 95 Nasal Cannula 2.00 01/26/22 09:38 37.5 100 16 117/68 95 Nasal Cannula 2.00 01/26/22 08:00 92 Room Air 01/26/22 07:36 37.6 88 18 129/67 (87) 95 Nasal Cannula 2.00 01/26/22 07:29 37.8 98 18 121/57 (78) 91 Nasal Cannula 2.00 01/26/22 03:45 37.8 90 18 121/57 (78) 91 Nasal Cannula 2.00 01/25/22 23:43 37.5 102 20 105/57 (73) 93 Nasal Cannula 2.00 01/25/22 21:19 37.6 98 20 111/56 (74) 92 Nasal Cannula 2.00 01/25/22 20:24 38.8 113 20 127/61 (83) 90 Room Air 01/25/22 20:19 38.8 113 20 127/61 (83) 90 Room Air 01/25/22 20:00 Nasal Cannula 2.00 I & O 01/26/22 06:59 Intake Total 1035 ml Output Total 900 ml Balance 135 ml Lab Results Laboratory Tests 01/25/22 20:12: Glucometer 241H 01/26/22 05:02: Glucometer 217H 01/26/22 05:41: White Blood Count 6.5, Red Blood Count 2.20L, Hemoglobin 6.6#*L, Hematocrit 19*L , Mean Corpuscular Volume 88, Mean Corpuscular Hemoglobin 30, Mean Corpuscular Hemoglobin Concent 34, Red Cell Distribution Width 15.2H, Platelet Count 199, Mean Platelet Volume 10.1, Immature Granulocyte % (Auto) 3, Neutrophils (%) (Auto) 66, Lymphocytes (%) (Auto) 14, Monocytes (%) (Auto) 13H, Eosinophils (%) (Auto) 3, Basophils (%) (Auto) 1, Neutrophils # (Auto) 4.3, Lymphocytes # (Auto) 0.9L, Monocytes # (Auto) 0.8, Eosinophils # (Auto) 0.2, Basophils # (Auto) 0.0, Immature Granulocyte # (Auto) 0.2H, Sodium Level 139, Potassium Level 3.2L, Chloride Level 106, Carbon Dioxide Level 19L, Anion Gap 14, Blood Urea Nitrogen 35H, Creatinine 1.63H, Estimat Glomerular Filtration Rate 43, BUN/Creatinine Ratio 21, Glucose Level 225H, Calcium Level 8.7, Corrected Calcium 9.7, Total Bilirubin 0.8, Aspartate Amino Transf (AST/SGOT) 26, Alanine Aminotransferase (ALT/SGPT) 13, Alkaline Phosphatase 58, Total Protein 5.1L, Albumin 2.7L 01/26/22 10:47: Glucometer 233H Microbiology 01/23/22 Gram Stain - Final, Complete 01/23/22 Sputum Culture - Final, Complete Usual upper respiratory barney 01/21/22 Urine Culture - Final, Complete Gram Pos Mixed Bacterial Barney 01/21/22 Blood Culture - Final, Complete Staphylococcus capitis Assessment and Plan Assessment third day post op Problem List same Plan Continue OOB as tolerated and PT once strong enough Final Diagonsis Non displaced subcapital fracture right hip s/p bipolar hemiarthroplasty Level of the visit: Level 3 TEMI CHAVEZ MD Jan 26, 2022 19:19
[2022-01-26] MEDS: MIRABEGRON 25 MG TAB (MYRBETRIQ) PO SCH (20:34)
[2022-01-26] MEDS: TERAZOSIN 1 MG CAP (HYTRIN) PO SCH (20:34)
[2022-01-26] MEDS: NIACIN ER (NIASPAN) 500 MG TAB PO SCH (20:34)
[2022-01-26] MEDS: ALPRAZolam 0.5 MG (XANAX) TAB PO SCH (20:35)
[2022-01-26] MEDS: ENOXAPARIN 80 MG/0.8 ML (LOVENOX) SYR SC SCH (22:14)
[2022-01-27 00:13] VITALS: BP 118/67
[2022-01-27 04:00] VITALS: BP 143/74
[2022-01-27 05:57] LABS: BASOPHILS % (AUTO) 1 % (0-10); EOSINOPHILS # (AUTO) 0.3 10^3/uL (0.0-0.3); EOSINOPHILS % (AUTO) 4 % (0-10); HEMATOCRIT 23 % (40-54); HEMOGLOBIN 7.9 g/dL (13.3-17.7); LYMPHOCYTES # (AUTO) 0.8 10^3/uL (1.0-4.0); LYMPHOCYTES % (AUTO) 11 % (12-44); MEAN CORPUSCULAR HEMOGLOBIN 30 pg (25-34); MEAN CORPUSCULAR HGB CONC 35 g/dL (32-36); MEAN CORPUSCULAR VOLUME 87 fL (80-99); MEAN PLATELET VOLUME 9.8 fL (9.0-12.2); MONOCYTES # (AUTO) 0.9 10^3/uL (0.0-1.0); MONOCYTES % (AUTO) 12 % (0-12); NEUTROPHILS % (AUTO) 68 % (42-75); PLATELET COUNT 231 10^3/uL (130-400); WHITE BLOOD COUNT 7.4 10^3/uL (4.3-11.0)
[2022-01-27 06:26] LABS: BILIRUBIN,TOTAL 0.9 MG/DL (0.1-1.0); CALCIUM 9.1 MG/DL (8.5-10.1); CREATININE SERUM 1.52 MG/DL (0.60-1.30); TOTAL PROTEIN 5.6 GM/DL (6.4-8.2)
[2022-01-27] MEDS: POTASSIUM BICARB 20 MEQ (EFFER-K) TABLET PO SCH (06:34)
[2022-01-27] MEDS: inSUlin ASPART (NovoLOG) 1 UNIT/0.01 ML (CHARGE PER UNIT) SC SCH ×4 (06:34→21:45)
[2022-01-27] MEDS: PIPERACILLIN SODIUM/TAZOBACTAM 4.5 GM in NS (IVPB) 100 ML IV SCH ×3 (06:36→22:02)
[2022-01-27] MEDS: LACTATED RINGERS 1,000 ML IV SCH (06:38)
[2022-01-27 08:42] VITALS: BP 145/65
--- NOTE | 2022-01-27 09:08 | Progress Note - Ortho ---
Progress Note Subjective Date of Exam 01/27/22 Chief Complaint POD#4 Cemented bipolar hemiarthroplasty right hip for nondisplaced subcapital fracture HPI/Events since last exam Mr. Fajardo is now 4 days postop. When I saw him he was up sitting in the chair eating breakfast. He states he is really not having any hip pain Review of Systems Reviewed and no additions or changes Allergies: Coded Allergies: Hqjfgio-OLB-XaI Reductase Inhibitor (Verified Allergy, Unknown, 01/21/22) Home Meds Reported Medications Omeprazole (Omeprazole) 20 Mg Capsule.dr, 20 MG PO DAILY, CAP 01/22/22 Tadalafil (Tadalafil) 5 Mg Tablet, 5 MG PO DAILY, TAB 01/22/22 Pregabalin (Pregabalin) 25 Mg Capsule, 25 MG PO BID, CAP 01/22/22 Multivitamin (Multivitamin) 1 Each Tablet, 1 EACH PO DAILY, TAB 01/22/22 Cyanocobalamin (Vitamin B-12) (Vitamin B-12) 2,500 Mcg Tab.subl, 2500 MCG SL DAILY, TAB 01/21/22 Zinc Gluconate (Zinc) 50 Mg Tablet, 50 MG PO DAILY, TAB 01/21/22 Ascorbate Calcium (Vitamin C) 500 Mg Tablet, 500 MG PO DAILY, TAB 01/21/22 Mirabegron (Myrbetriq) 50 Mg Tab.er.24h, 50 MG PO HS, TAB 01/21/22 Clopidogrel Bisulfate (Clopidogrel) 75 Mg Tablet, 75 MG PO 1500, TAB 01/21/22 Sertraline HCl (Sertraline HCl) 100 Mg Tablet, 100 MG PO 1500, TAB 01/21/22 Cholecalciferol (Vitamin D3) (Vitamin D3) 25 Mcg (1000 Unit) Tablet, 25 MCG PO DAILY, TAB 01/21/22 Tamsulosin HCl (Flomax) 0.4 Mg Cap, 0.4 MG PO DAILY, CAP 03/28/19 Ezetimibe (Zetia) 10 Mg Tablet, 10 MG PO DAILY, TAB 03/28/19 Cetirizine HCl/Pseudoephedrine (Cetirizine-Pse ER 5-120 mg Tab) 5 Mg-120 Mg Tab.er.12h, 1 TAB PO Q12H, TAB 03/28/19 Aspirin/Acetaminophen/Caffeine (Excedrin Extra Strength Caplet) 1 Each Tablet, 1-2 TAB PO BID PRN for PAIN-MILD, TAB 03/28/19 Saw [place] Fruit/Zinc Picoli (Saw [place] 450 mg Capsule) 450 Mg-15 Mg Capsule, 1 CAP PO DAILY, CAP 03/28/19 Niacin (Inositol Niacinate) (Niacin 500 mg Capsule) 500 Mg Capsule, 500 MG PO HS, CAP 03/28/19 Amlodipine Besylate (Amlodipine Besylate) 5 Mg Tablet, 5 MG PO 1500, TAB 03/28/19 Glipizide (Glipizide) 5 Mg Tablet, 5 MG PO DAILY, TAB 03/28/19 Metformin HCl (Metformin HCl) 1,000 Mg Tablet, 1000 MG PO BID, TAB 03/28/19 Terazosin HCl (Terazosin HCl) 2 Mg Capsule, 2 MG PO HS, CAP 03/28/19 Losartan Potassium (Losartan Potassium) 100 Mg Tablet, 100 MG PO DAILY, TAB 03/28/19 Alprazolam (Alprazolam) 0.5 Mg Tablet, 0.5 MG PO HS, TAB 03/28/19 Discontinued Reported Medications Gabapentin (Gabapentin) 100 Mg Capsule, 100 MG PO HS, CAP 03/28/19 Aspirin (Aspirin EC) 325 Mg Tablet.dr, 325 MG PO DAILY, TAB 03/28/19 Multivit-Min/FA/Lycopene/Lut (Complete Multi 50+ Tablet) 1 Each Tablet, 1 TAB PO DAILY, TAB 03/28/19 Discontinued Scripts [Trospium Tablet] 20 MG TAB No Conflict Check, 20 MG PO DAILY@06,16, #30 TAB Prov:LENNY CAVANAUGH DO 04/01/19 Tolterodine Tartrate (Detrol LA) 4 Mg Cap, 4 MG PO HS, #30 CAP Prov:LENNY CAVANAUGH DO 04/01/19 Sennosides/Docusate Sodium (Senna-Time S Tablet) 1 Each Tablet, 2 EA PO BID, #60 TAB Prov:LENNY CAVANAUGH DO 04/01/19 Hydrocodone Bit/Acetaminophen (HYDROcodone/APAP 10/325 TABLET) 1 Each Tablet, 1- 2 EA PO Q4H PRN for PAIN-MODERATE, #30 TAB Prov:LENNY CAVANAUGH DO 04/01/19 Baclofen (Baclofen) 10 Mg Tablet, 10 MG PO Q8HR PRN for MUSCLE SPASM, #30 TAB Prov:LENNY CAVANAUGH DO 04/01/19 Objective Exam Constitutional: [] HEENT: [] Neck: [] Cardiovascular: [] Respiratory: [] Gastrointestinal: [] Genitourinary: [] Skin: [] Back/Spine: [] Extremities: [] His dressing is intact and need to be changed today. No thigh or calf swelling. Negative Homans. No calf tenderness bilateral. Equal position of right and left legs. He can dorsiflex and plantarflex the foot and ankle without any weakness and has normal sensation and equal pulses Neurologic: [] Psychiatric: [] Hematologic/lymphatic/immunologic: [] Vital Signs Vital Signs Date Time Temp Pulse Resp B/P (MAP) Pulse Ox O2 Delivery O2 Flow Rate FiO2 01/27/22 08:42 37.2 84 18 145/65 (91) 95 Nasal Cannula 3.00 01/27/22 04:00 37.1 102 18 143/74 (97) 90 Nasal Cannula 2.00 01/27/22 00:13 37.0 88 18 118/67 (84) 94 Nasal Cannula 2.00 01/26/22 20:00 Nasal Cannula 2.00 01/26/22 19:48 Nasal Cannula 2.00 01/26/22 19:28 36.9 97 20 160/65 (96) 92 Nasal Cannula 2.00 01/26/22 16:00 100 01/26/22 16:00 37.0 130 20 136/67 (90) 96 Nasal Cannula 2.00 01/26/22 12:07 34.7 91 16 114/67 95 Nasal Cannula 2.00 01/26/22 11:50 37.5 89 20 128/78 (95) 96 Nasal Cannula 2.00 01/26/22 09:57 37.6 99 16 114/60 95 Nasal Cannula 2.00 01/26/22 09:47 95 Nasal Cannula 2.00 01/26/22 09:38 37.5 100 16 117/68 95 Nasal Cannula 2.00 I & O 01/27/22 07:00 Intake Total 1920 ml Output Total 1500 ml Balance 420 ml Lab Results Laboratory Tests 01/26/22 10:47: Glucometer 233H 01/26/22 16:05: Glucometer 276H 01/26/22 20:07: Glucometer 286H 01/27/22 05:42: White Blood Count 7.4, Red Blood Count 2.62L, Hemoglobin 7.9L, Hematocrit 23L, Mean Corpuscular Volume 87, Mean Corpuscular Hemoglobin 30, Mean Corpuscular Hemoglobin Concent 35, Red Cell Distribution Width 15.9H, Platelet Count 231, Mean Platelet Volume 9.8, Immature Granulocyte % (Auto) 5, Neutrophils (%) (Aut o) 68, Lymphocytes (%) (Auto) 11L, Monocytes (%) (Auto) 12, Eosinophils (%) (Auto) 4, Basophils (%) (Auto) 1, Neutrophils # (Auto) 5.0, Lymphocytes # (Auto) 0.8L, Monocytes # (Auto) 0.9, Eosinophils # (Auto) 0.3, Basophils # (Auto) 0.0, Immature Granulocyte # (Auto) 0.4H, Sodium Level 142, Potassium Level 3.0L, Chloride Level 107, Carbon Dioxide Level 21, Anion Gap 14, Blood Urea Nitrogen 25H, Creatinine 1.52H, Estimat Glomerular Filtration Rate 47, BUN/Creatinine Ratio 16, Glucose Level 266H, Calcium Level 9.1, Corrected Calcium 9.9, Total Bilirubin 0.9, Aspartate Amino Transf (AST/SGOT) 33, Alanine Aminotransferase (ALT/SGPT) 30, Alkaline Phosphatase 69, Total Protein 5.6L, Albumin 3.0L Microbiology 01/23/22 Gram Stain - Final, Complete 01/23/22 Sputum Culture - Final, Complete Usual upper respiratory barney 01/21/22 Urine Culture - Final, Complete Gram Pos Mixed Bacterial Barney 01/21/22 Blood Culture - Final, Complete Staphylococcus capitis Assessment and Plan Assessment 4 days postop Problem List Unchanged Plan Continue physical therapy walker ambulation weightbearing as tolerated on the right Final Diagonsis Nondisplaced subcapital fracture right hip status post cemented bipolar hemiarthroplasty Level of the visit: Level 3 TEMI CHAVEZ MD Jan 27, 2022 09:08
[2022-01-27] MEDS: VITAMIN D3 25 MCG (1,000 UNITS) TABLET PO SCH (09:13)
[2022-01-27] MEDS: eZETimibe 10 MG (ZETIA) TABLET PO SCH (09:13)
[2022-01-27] MEDS: TAMSULOSIN 0.4 MG (FLOMAX) CAP PO SCH (09:13)
[2022-01-27] MEDS: LORATADINE (CLARITIN) 10 MG TAB PO SCH (09:14)
[2022-01-27] MEDS: PANTOPRAZOLE 20 MG TABLET (PROTONIX) PO SCH (09:14)
[2022-01-27] MEDS: LOSARTAN 100 MG (COZAAR) TABLET PO SCH (09:14)
[2022-01-27] MEDS: tadalafiL 5 MG TABLET (NON-FORMULARY) PO SCH (09:14)
[2022-01-27] MEDS: PREGABALIN 25 MG (LYRICA) CAPSULE PO SCH ×2 (09:14→21:44)
[2022-01-27] MEDS ORDERED: MAGNESIUM 1 GM/100 ML IVPB 100 ML IV ONE (09:45)
--- NOTE | 2022-01-27 09:46 | Physical Therapy Daily Note ---
PT Daily Note-Current Subjective Patient is more alert today. Spouse present. Agrees to PT. Mental Status Patient Orientation: Person Attachments: Oxygen, [place] Catheter, IV Transfers SCALE: Activities may be completed with or without assistive devices. 4-Hbpkbrkclk-ofogvjj completes the activity by him/herself with no assistance from a helper. 5-Set-up or Clean-up Assistance-helper sets up or cleans up; patient completes activity. [place] assists only prior to or following the activity. 4-Supervision or Touching Assistance-helper provides verbal cues and/or touching/steadying and/or contact guard assistance as patient completes a ctivity. Assistance may be provided throughout the activity or intermittently. 3-Partial/Moderate Assistance-helper does LESS THAN HALF the effort. [place] lifts, holds or supports trunk or limbs, but provides less than half the effort. 2-Substantial/Maximal Assistance-helper does MORE THAN HALF the effort. [place] lifts or holds trunk or limbs and provides more than half the effort. 1-Raljwclpb-ecxutp does ALL the effort. Patient does none of the effort to complete the activity. Or, the assistance of 2 or more helpers is required for the patient to complete the activity. If activity was not attempted, code reason: 7-Patient Refused. 9-Not Applicable-not attempted and the patient did not perform the activity before the current illness, exacerbation or injury. 10-Not Attempted due to Environmental Limitations-(lack of equipment, weather restraints, etc.). 88-Not Attempted due to Medical Conditions or Safety Concerns. Lying to Sitting/Side of Bed(Q: 1 Sit to Stand (QC): 2 Chair/Cbh-pq-Aygdj Xfer(QC): 1 able to take 2 small steps with right LE, however, unable to bear weight right LE to advance left LE Weight Bearing Right Lower Extremity: Right Weight Bearing/Tolerated Left Lower Extremity: Left Full Weight Bearing THR precautions Gait Training Does the Patient Walk?: No and Walking Goal IS indicated Exercises Supine Ex: Ankle pumps, Heel Slides, Straight leg raise, Hip abd/add Supine Reps: 12 (AAROM) Seated Therapy Exercises: Long arc quads Seated Reps: 12 Assessment Patient progressing very slowly with treatment plan. Patient continues to have difficulty with taking steps and weight bearing right LE to advance left LE. Patient improving with sit to stand transfers but unable to turn to sit requiring PT assist. PT Universal Grinder Operator Goals [facility] Goals PT [facility] Goals Time Frame: Feb 08, 2022 Roll Left & Right (QC): 4 Sit to Lying (QC): 4 Lying-Sitting on Side/Bed(QC): 4 Sit to Stand (QC): 4 Chair/Olq-lq-Mwyki Xfer(QC): 4 Toilet Transfer (QC): 4 Walk 10 feet (QC): 4 Walk 50ft with 2 Turns (QC): 4 Walk 150 ft (QC): 4 PT Plan Treatment/Plan Treatment Plan: Continue Plan of Care Treatment Plan: Bed Mobility, Education, Functional Activity Edmund, Functional Strength, Gait, Safety, Therapeutic Exercise, Transfers Treatment Duration: Feb 08, 2022 Frequency: 11 times per week Estimated Hrs Per Day: .5 hour per day Time/GCodes Time In: 815 Time Out: 840 Total Billed Treatment Time: 25 Total Billed Treatment 1 visit EX 15 min FA 10 min JAYDA DUFFY PT Jan 27, 2022 09:46
[2022-01-27] MEDS: POTASSIUM CL 10MEQ/50ML IVPB 50 ML IV SCH ×4 (09:54→13:15)
[2022-01-27] MEDS: PSEUDOEPHEDRINE HCL 30 MG (SUDAFED) TAB PO SCH ×2 (10:08→21:44)
--- NOTE | 2022-01-27 11:05 | Progress Note ---
JORGE LUIS ARBOLEDA 01/27/22 1105: Subjective Date Seen by a Provider: Jan 27, 2022 Time Seen by a Provider: 10:00 Subjective/Events-last exam 76 M with hx of alzheimers, dementia, and neuropathy is day 4 s/p Rt hip fx repair is hypokalemia and hyperglycemic but aymptomatic this morning. Pt is moderately confused but in good spirits sitting upright in chair. Pt calims he is in no pain and comfortable. Ambulation was increased today. Per family, pt was able to eat with no issues and dysphasia has decreased along with normal BMs and voiding. Denies SOB, chest pain, N/V, or fever. Discussion today about future rehab plans with post-hosp care. Review of Systems General: No Chills HEENT: No Head Aches, No Dysphasia Pulmonary: No Dyspnea, No Cough Cardiovascular: No: Chest Pain, Palpitations Gastrointestinal: No: Nausea, Vomiting, Abdominal Pain Genitourinary: No Dysuria, No Incontinence Neurological: No: Weakness Objective Exam Last Set of Vital Signs Vital Signs Date Time Temp Pulse Resp B/P (MAP) Pulse Ox O2 Delivery O2 Flow Rate FiO2 01/27/22 08:42 37.2 84 18 145/65 (91) 95 Nasal Cannula 3.00 01/24/22 14:35 28 Capillary Refill : Less Than 3 Seconds I&O Intake and Output 01/27/22 00:00 Intake Total 620 ml Output Total 950 ml Balance -330 ml Intake Oral 520 ml IV Total 100 ml Output Urine Total 950 ml # Bowel Movements 1 General: Alert, Cooperative HEENT: Atraumatic Neck: Supple, No JVD Lungs: Clear to Auscultation, Normal Air Movement Heart: Regular Rate, Normal S1, Normal S2, No Murmurs Abdomen: Normal Bowel Sounds, Soft, No Tenderness Extremities: No Edema, Normal Pulses Skin: No Rashes, No Significant Lesion Neuro: Normal Tone, Sensation Intact Psych/Mental Status: Other (confused) Results Lab Laboratory Tests 01/26/22 16:05: Glucometer 276H 01/26/22 20:07: Glucometer 286H 01/27/22 05:42: White Blood Count 7.4, Red Blood Count 2.62L, Hemoglobin 7.9L, Hematocrit 23L, Mean Corpuscular Volume 87, Mean Corpuscular Hemoglobin 30, Mean Corpuscular He moglobin Concent 35, Red Cell Distribution Width 15.9H, Platelet Count 231, Mean Platelet Volume 9.8, Immature Granulocyte % (Auto) 5, Neutrophils (%) (Auto) 68, Lymphocytes (%) (Auto) 11L, Monocytes (%) (Auto) 12, Eosinophils (%) (Auto) 4, Basophils (%) (Auto) 1, Neutrophils # (Auto) 5.0, Lymphocytes # (Auto) 0.8L, Mon ocytes # (Auto) 0.9, Eosinophils # (Auto) 0.3, Basophils # (Auto) 0.0, Immature Granulocyte # (Auto) 0.4H, Sodium Level 142, Potassium Level 3.0L, Chloride Level 107, Carbon Dioxide Level 21, Anion Gap 14, Blood Urea Nitrogen 25H, Creatinine 1.52H, Estimat Glomerular Filtration Rate 47, BUN/Creatinine Ratio 16, Glucose Level 266H, Calcium Level 9.1, Corrected Calcium 9.9, Magnesium Level 2.1, Total Bilirubin 0.9, Aspartate Amino Transf (AST/SGOT) 33, Alanine Aminotransferase (ALT/SGPT) 30, Alkaline Phosphatase 69, Total Protein 5.6L, Albumin 3.0L Microbiology 01/23/22 Gram Stain - Final, Complete 01/23/22 Sputum Culture - Final, Complete Usual upper respiratory barney 01/21/22 Urine Culture - Final, Complete Gram Pos Mixed Bacterial Barney 01/21/22 Blood Culture - Final, Complete Staphylococcus capitis Assessment/Plan Assessment/Plan Assess & Plan/Chief Complaint Continue to monitor Hgb PT eval for tx to in-pt rehab start Mag sulfate, KCL, and long acting insulin monitor glucose and switch to diabetic diet focus on quality of life measures PT/OT ANNETTE SALDANA DO 01/28/22 0520: Subjective Subjective/Events-last exam Pt is doing really well In-patient rehab will be an option then probably discharge home on hospice No falls Hemoglobin was 7.9 after a total of 2 units this weekend BP is stable at 160/87 Potassium is 3, magnesium is 1.7 Review of Systems General: Fatigue, Malaise Neurological: Confusion Objective Exam General: Alert, Cooperative, No Acute Distress, Other (o x 2) Lungs: Clear to Auscultation Heart: Regular Rate Assessment/Plan Assessment/Plan Assess & Plan/Chief Complaint IRF then hospice at [place] Supervisory-Addendum Brief Verification & Attestation Participated in pt care: history, MDM, physical Personally performed: exam, history, MDM, supervision of care Care discussed with: Medical Student Procedures: n/a Results interpretation: Verified all documentation Verification and Attestation of Medical Student E/M Service A medical student performed and documented this service in my presence. I reviewed and verified all information documented by the medical student and made modifications to such information, when appropriate. I personally performed the physical exam and medical decision making. Annette Saldana, Jan 28, 2022,05:19 JORGE LUIS ARBOLEDA Jan 27, 2022 11:05 ANNETTE SALDANA DO Jan 28, 2022 05:20
[2022-01-27 11:19] VITALS: BP 140/67
[2022-01-27] MEDS ORDERED: POTASSIUM CL 10MEQ/50ML IVPB 50 ML IV ONE (11:56)
--- NOTE | 2022-01-27 13:27 | Occupational Therapy Eval ---
OT Evaluation-General/PLF Medical Diagnosis Admission Date Jan 21, 2022 at 14:48 Medical Diagnosis: right hip fracture Onset Date: Jan 21, 2022 Therapy Diagnosis Therapy Diagnosis: reduced adl status Precautions Precautions/Isolations: Fall Prevention, Standard Precautions, Pressure Ulcer Weight Bear Status Weight Bearing Restriction: Weight Bearing/Tolerated Location Restriction: R LE THR precautions, Right Referral Physician: Keisha Hodge Reason: Evaluation/Treatment Medical History Pertinent Medical History: CAD, Dementia, HTN, Neuropathy Current History s/p fall resulting in R hip fx. Per spouse, pt required assist with adls while receiving radiation treatments (due to fatigue and weakness) however is independent when not on treatments. He was using a walker at baseline. His manages all the iadls however pt is able to do simple meal prep. Reviewed History: Yes Social History Home: Single Level Current Living Status: Spouse ADL-Prior Level of Function SCALE: Activities may be completed with or without assistive devices. 6-Vlyxpysvqq-niblhsv completes the activity by him/herself with no assistance from a helper. 5-Set-up or Clean-up Assistance-helper sets up or cleans up; patient completes activity. [place] assists only prior to or following the activity. 4-Supervision or Touching Assistance-helper provides verbal cues and/or touching/steadying and/or contact guard assistance as patient completes activity. Assistance may be provided throughout the activity or intermittently. 3-Partial/Moderate Assistance-helper does LESS THAN HALF the effort. [place] lifts, holds or supports trunk or limbs, but provides less than half the effort. 2-Substantial/Maximal Assistance-helper does MORE THAN HALF the effort. [place] lifts or holds trunk or limbs and provides more than half the effort. 1-Szzbclvpd-misfwg does ALL the effort. Patient does none of the effort to complete the activity. Or, the assistance of 2 or more helpers is required for the patient to complete the activity. If activity was not attempted, code reason: 7-Patient Refused. 9-Not Applicable-not attempted and the patient did not perform the activity before the current illness, exacerbation or injury. 10-Not Attempted due to Environmental Limitations-(lack of equipment, weather restraints, etc.). 88-Not Attempted due to Medical Conditions or Safety Concerns. Self Care: Needed Some Help Functional Cognition: Unknown DME/Equipment: Shower (built in seat) Drive Self: No OT Current Status Subjective Pt very fatigued, falls asleep ~30 seconds after laying supine. Appearance Pt returned to supine in bed, all needs within reach, family in the room at OT departure. Mental Status/Objective Patient Orientation: Person Attachments: [place] Catheter, IV, Oxygen Current Glasses/Contacts: Yes Hearing Aids: No ADL-Treatment Lower Body Dressing (QC): 1 (per clinical judgment) On/Off Footwear (QC): 1 Toileting Hygiene (QC): 1 At OT arrival, Pt standing at chair with 2 AD COPY WRITER's present. Staff having difficulty getting patient to take a step towards the bed. Pt unable to follow verbal cues and was sinking further into flexion with prolonged standing. Physical assist and cues from OT to shift weight in order to transition each foot. HOHA to reach back for bed rail when sitting. Dependent x2 to return to supine. ~30 seconds after laying supine, pt sleeping heavily. Very poor activity tolerance, unable to tolerate very much activity at this time. Education OT Patient Education: Correct positioning, Purpose of tx/functional activities, Reviewed precautions, Rehab process, Safety issues, Transfer techniques Teaching Recipient: Patient, Family Teaching Methods: Demonstration, Discussion Response to Teaching: Unable to Comprehend, Reinforcement Needed OT Fdc Goals Quality Rep Goals Time Frame: Feb 17, 2022 Eating (QC): 5 Oral Hygiene (QC): 4 Toileting Hygiene (QC): 3 Shower/Bathe Self (QC): 3 Upper Body Dressing (QC): 4 Lower Body Dressing (QC): 3 On/Off Footwear (QC): 3 1=Demonstrate adherence to instructed precautions during ADL tasks. 2=Patient will verbalize/demonstrate understanding of assistive devices/modifications for ADL. 3=Patient will improve strength/tolerance for activity to enable patient to perform ADL's. OT Education/Plan Problem List/Assessment Assessment: Decreased Activ Tolerance, Decreased Safety Aware, Decreased UE Strength, Dependent Transfers, Impaired Bed Mobility, Impaired Cognition, Impaired Funct Balance, Impaired Self-Care Skills Discharge Recommendations Plan/Recommendations: Continue POC Therapy Discharge Recommendati: Post Acute OT Treatment Plan/Plan of Care Treatment,Training & Education: Yes Patient would benefit from OT for education, treatment and training to promote independence in ADL's, mobility, safety and/or upper extremity function for ADL's. Plan of Care: ADL Retraining, Caregiver Training, Functional Mobility, Group Exercise/Act as Ind, UE Funct Exercise/Act, W/C Management Training Treatment Duration: Feb 17, 2022 Frequency: 5 times per week Estimated Hrs Per Day: .25 hour per day Rehab Potential: Poor Time/GCodes Start Time: 12:57 Stop Time: 11:17 Total Time Billed (hr/min): 20 Billed Treatment Time 1 visit Kayla Alarcon OT Jan 27, 2022 13:27
--- NOTE | 2022-01-27 13:56 | Physical Therapy Daily Note ---
PT Daily Note-Current Subjective Patient very lethargic. Spouse present. Transfers SCALE: Activities may be completed with or without assistive devices. 7-Tdvsudtrzu-xcgozys completes the activity by him/herself with no assistance from a helper. 5-Set-up or Clean-up Assistance-helper sets up or cleans up; patient completes activity. [place] assists only prior to or following the activity. 4-Supervision or Touching Assistance-helper provides verbal cues and/or touching/steadying and/or contact guard assistance as patient completes activity. Assistance may be provided throughout the activity or intermittently. 3-Partial/Moderate Assistance-helper does LESS THAN HALF the effort. [place] lifts, holds or supports trunk or limbs, but provides less than half the effort. 2-Substantial/Maximal Assistance-helper does MORE THAN HALF the effort. [place] lifts or holds trunk or limbs and provides more than half the effort. 5-Cwgqoexbw-phsuzt does ALL the effort. Patient does none of the effort to complete the activity. Or, the assistance of 2 or more helpers is required for the patient to complete the activity. If activity was not attempted, code reason: 7-Patient Refused. 9-Not Applicable-not attempted and the patient did not perform the activity before the current illness, exacerbation or injury. 10-Not Attempted due to Environmental Limitations-(lack of equipment, weather restraints, etc.). 88-Not Attempted due to Medical Conditions or Safety Concerns. Weight Bearing Right Lower Extremity: Right Weight Bearing/Tolerated Left Lower Extremity: Left Full Weight Bearing THR precautions Exercises Supine Ex: Ankle pumps, Heel Slides, Straight leg raise, Hip abd/add Supine Reps: 15 (x 2 sets bilaterally PROM) Assessment Patient remains in bed with abduction pillow in place. PT to increase activity as tolerated by patient. PT Skilled Nursing Goals Forest Worker Goals PT Forest Worker Goals Time Frame: Feb 08, 2022 Roll Left & Right (QC): 4 Sit to Lying (QC): 4 Lying-Sitting on Side/Bed(QC): 4 Sit to Stand (QC): 4 Chair/Ilf-py-Hnbfx Xfer(QC): 4 Toilet Transfer (QC): 4 Walk 10 feet (QC): 4 Walk 50ft with 2 Turns (QC): 4 Walk 150 ft (QC): 4 PT Plan Treatment/Plan Treatment Plan: Continue Plan of Care Treatment Plan: Bed Mobility, Education, Functional Activity [place], Functional Strength, Gait, Safety, Therapeutic Exercise, Transfers Treatment Duration: Feb 08, 2022 Frequency: 11 times per week Estimated Hrs Per Day: .5 hour per day Time/GCodes Time In: 1340 Time Out: 1350 Total Billed Treatment Time: 10 Total Billed Treatment 1 visit EX 10 min JAYDA DUFFY PT Jan 27, 2022 13:56
[2022-01-27] MEDS: SERTRALINE 100 MG (ZOLOFT) TAB PO SCH (14:57)
[2022-01-27] MEDS: amLODIPine 5 MG (NORVASC) TAB PO SCH (14:57)
[2022-01-27] MEDS: HYDROcodone/APAP 5 MG/325 MG (LORTAB) TAB PO PRN (14:57)
[2022-01-27 16:04] VITALS: BP 158/69
[2022-01-27 20:33] VITALS: BP 135/87
[2022-01-27] MEDS: TERAZOSIN 1 MG CAP (HYTRIN) PO SCH (21:43)
[2022-01-27] MEDS: ALPRAZolam 0.5 MG (XANAX) TAB PO SCH (21:44)
[2022-01-27] MEDS: MIRABEGRON 25 MG TAB (MYRBETRIQ) PO SCH (21:44)
[2022-01-27] MEDS: NIACIN ER (NIASPAN) 500 MG TAB PO SCH (21:44)
[2022-01-28 00:17] VITALS: BP 140/63
[2022-01-28 04:13] VITALS: BP 144/80
[2022-01-28] MEDS: LACTATED RINGERS 1,000 ML IV SCH (04:29)
[2022-01-28 05:58] LABS: BASOPHILS % (AUTO) 0 % (0-10); EOSINOPHILS # (AUTO) 0.2 10^3/uL (0.0-0.3); EOSINOPHILS % (AUTO) 2 % (0-10); HEMATOCRIT 23 % (40-54); HEMOGLOBIN 7.6 g/dL (13.3-17.7); LYMPHOCYTES # (AUTO) 0.9 10^3/uL (1.0-4.0); LYMPHOCYTES % (AUTO) 11 % (12-44); MEAN CORPUSCULAR HEMOGLOBIN 29 pg (25-34); MEAN CORPUSCULAR HGB CONC 33 g/dL (32-36); MEAN CORPUSCULAR VOLUME 88 fL (80-99); MEAN PLATELET VOLUME 9.8 fL (9.0-12.2); MONOCYTES % (AUTO) 11 % (0-12); NEUTROPHILS # (AUTO) 6.5 10^3/uL (1.8-7.8); NEUTROPHILS % (AUTO) 73 % (42-75); PLATELET COUNT 276 10^3/uL (130-400); WHITE BLOOD COUNT 8.9 10^3/uL (4.3-11.0)
--- NOTE | 2022-01-28 06:06 | Discharge Summary ---
Diagnosis/Chief Complaint Date of Admission Jan 21, 2022 at 14:48 Date of Discharge Discharge Date: Jan 28, 2022 Discharge Diagnosis decreased mobility due to s/p rt hip fx repair alzheimers dementia neuropathy rectal cancer anemia hypokalemia hypoxia DM dysphagia Discharge Summary Discharge Physical Examination Allergies: Coded Allergies: [id number] Reductase Inhibitor (Verified Allergy, Unknown, 01/21/22) Vitals & I&Os Vital Signs Date Time Temp Pulse Resp B/P (MAP) Pulse Ox O2 Delivery O2 Flow Rate FiO2 01/28/22 09:14 37.6 98 20 159/84 93 Nasal Cannula 2.00 01/24/22 14:35 28 General Appearance: Alert, Cooperative Respiratory: Clear to Auscultation Cardiovascular: Regular Rate Hospital Course Was the Problem List Reviewed?: Yes 76 M with hx of alzheimers, dementia, neuropathy, and rectal cancer was admitted for a rt hip fx repair by Dr. Valdes on 01/21/2022 following 2 falls where the pt landed on rt hip. Upon arrival, pt was hypoxic at PO2 81% and started on 4L supplemental O2. IV abx were initiated per surgical protocol as well as Dys 2 diet, DVT prophylaxis, and HTN control. Day 4 post-op pt became anemic with Hgb of 6.8 and received 2 units of blood and hold on lovenox resulting in Hgb of 7.9. Dr. Saldana met with pt and family on focusing care towards quality over quantity. PT was started to increase ambulation. Day 6 p/o, pt was hypokalemic and hyponatremic and was supplemented along with magnessium. Also, pt was continually running hyperglycemic so long acting insulin was added which has decreased glucose to 145. Nutrition met with pt and decided to continue dys 2 diet, with recommended swallow study and f/u in 72hrs. Day 7 post-op, pt was in no pain and tx to in-pt rehab for continued therapy and monitoring. Labs (last 24 hrs) Laboratory Tests 01/21/22 09:07: White Blood Count 10.2, Red Blood Count 3.68L, Hemoglobin 11.3L, Hematocrit 33L, Mean Corpuscular Volume 89, Mean Corpuscular Hemoglobin 31, Mean Corpuscular Hemoglobin Concent 35, Red Cell Distribution Width 14.4, Platelet Count 239, Mean Platelet Volume 9.4, Immature Granulocyte % (Auto) 1, Neutrophils (%) (Auto) 80H, Lymphocytes (%) (Auto) 9L, Monocytes (%) (Auto) 10, Eosinophils (%) (Auto) 1, Basophils (%) (Auto) 0, Neutrophils # (Auto) 8.1H, Lymphocytes # (Auto) 0.9L, Monocytes # (Auto) 1.0, Eosinophils # (Auto) 0.1, Basophils # (Aut o) 0.0, Immature Granulocyte # (Auto) 0.1, Prothrombin Time 13.4, INR Comment 1.0, Activated Partial Thromboplast Time 31, Sodium Level 138, Potassium Level 4.0, Chloride Level 104, Carbon Dioxide Level 22, Anion Gap 12, Blood Urea Nitrogen 24H, Creatinine 1.14, Estimat Glomerular Filtration Rate 67, BUN/Creatinine Ratio 21, Glucose Level 167H, Calcium Level 9.7, Corrected Calcium 9.5, Total Bilirubin 0.7, Aspartate Amino Transf (AST/SGOT) 16, Alanine Aminotransferase (ALT/SGPT) 19, Alkaline Phosphatase 103, Troponin I < 0.30, Pro-B-Type Natriuretic Peptide 83.6, Total Protein 6.6, Albumin 4.2 01/21/22 09:25: Lactic Acid Level 1.39 01/21/22 09:30: Urine Color YELLOW, Urine Clarity CLEAR, Urine pH 6.5, Urine Specific Williams 1.020, Urine Protein TRACEH, Urine Glucose (UA) TRACEH, Urine Ketones NEGATIVE, Urine Nitrite NEGATIVE, Urine Bilirubin NEGATIVE, Urine Urobilinogen 0.2, Urine Leukocyte Esterase NEGATIVE, Urine RBC (Auto) TRACE-IH, Urine RBC 0-2, Urine WBC RARE, Urine Squamous Epithelial Cells NONE, Urine Crystals NONE, Urine Bacteria NEGATIVE, Urine Casts NONE, Urine Mucus NEGATIVE, Urine Culture Indicated CULTU RE PENDING 01/21/22 11:49: Influenza Type A (RT-PCR) Not Detected, Influenza Type B (RT-PCR) Not Detected, SARS-CoV-2 RNA (RT-PCR) Not Detected 01/21/22 14:48: Lab Scanned Report Referred Lab Report 01/21/22 17:20: Activated Partial Thromboplast Time 139*H 01/22/22 01:09: Activated Partial Thromboplast Time 73H 01/22/22 05:05: White Blood Count 11.8H, Red Blood Count 3.63L, Hemoglobin 11.1L, Hematocrit 33L , Mean Corpuscular Volume 91, Mean Corpuscular Hemoglobin 31, Mean Corpuscular Hemoglobin Concent 34, Red Cell Distribution Width 14.6H, Platelet Count 224, Mean Platelet Volume 9.9, Sodium Level 137, Potassium Level 3.8, Chloride Level 105, Carbon Dioxide Level 19L, Anion Gap 13, Blood Urea Nitrogen 20H, Creatinine 1.22, Estimat Glomerular Filtration Rate 61, BUN/Creatinine Ratio 16, Glucose Level 160H, Calcium Level 9.1, Corrected Calcium 9.4, Total Bilirubin 1.1H, Aspartate Amino Transf (AST/SGOT) 13, Alanine Aminotransferase (ALT/SGPT) 20, Alkaline Phosphatase 86, Total Protein 6.3L, Albumin 3.6 01/22/22 08:15: Activated Partial Thromboplast Time 55H 01/22/22 16:40: Activated Partial Thromboplast Time 64H 01/22/22 22:35: Activated Partial Thromboplast Time 57H 01/23/22 05:30: Activated Partial Thromboplast Time 63H, White Blood Count 8.7, Red Blood Count 3.54L, Hemoglobin 11.0L, Hematocrit 31L, Mean Corpuscular Volume 88, Mean Corpuscular Hemoglobin 31, Mean Corpuscular Hemoglobin Concent 35, Red Cell Distribution Width 14.2, Platelet Count 202, Mean Platelet Volume 9.4, Sodium Level 131L, Potassium Level 3.7, Chloride Level 101, Carbon Dioxide Level 21, Anion Gap 9, Blood Urea Nitrogen 15, Creatinine 1.01, Estimat Glomerular Filtration Rate 77, BUN/Creatinine Ratio 15, Glucose Level 178H, Calcium Level 9.5, Corrected Calcium 9.9, Total Bilirubin 1.4H, Aspartate Amino Transf (AST/SGOT) 13, Alanine Aminotransferase (ALT/SGPT) 21, Alkaline Phosphatase 88, Total Protein 6.4, Albumin 3.5 01/23/22 13:09: Bedside Blood Gas pH (LAB) 7.414H, Bedside Blood Gas pCO2 (LAB) 37.0L, Bedside Blood Gas pO2 (LAB) 261H, Bedside Blood Gas HCO3 (LAB) 23.7, POC Blood Gas Total CO2 Calc 25, Bedside Bl Gas O2 Saturation (Calc) 100H, Bedside Arterial Blood Base Excess -1 01/23/22 18:25: Glucometer 243H 01/23/22 23:23: Glucometer 197H 01/24/22 04:53: White Blood Count 8.8, Red Blood Count 3.23L, Hemoglobin 9.9L, Hematocrit 28L, Mean Corpuscular Volume 87, Mean Corpuscular Hemoglobin 31, Mean Corpuscular Hemoglobin Concent 35, Red Cell Distribution Width 14.0, Platelet Count 231, Mean Platelet Volume 9.9, Prothrombin Time 14.6, INR Comment 1.1, Sodium Level 135, Potassium Level 3.5L, Chloride Level 98, Carbon Dioxide Level 22, Anion Gap 15H, Blood Urea Nitrogen 31H, Creatinine 1.94H, Estimat Glomerular Filtration Rate 35, BUN/Creatinine Ratio 16, Glucose Level 182H, Calcium Level 9.6, Corrected Calcium 10.2H, Total Bilirubin 0.6, Aspartate Amino Transf (AST/SGOT) 15, Alanine Aminotransferase (ALT/SGPT) 19, Alkaline Phosphatase 74, Total Protein 6.3L, Albumin 3.2, Triglycerides Level 181H, Procalcitonin 0.47H 01/24/22 05:31: Phosphorus Level 3.1, Magnesium Level 1.8 01/24/22 05:59: Bedside Blood Gas pH (LAB) 7.518H, Bedside Blood Gas pCO2 (LAB) 30.3L, Bedside Blood Gas pO2 (LAB) 94, Bedside Blood Gas HCO3 (LAB) 24.6, POC Blood Gas Total CO2 Calc 26, Bedside Bl Gas O2 Saturation (Calc) 98, Bedside Arterial Blood Base Excess 2 01/24/22 13:27: Glucometer 197H 01/24/22 18:33: Glucometer 200H 01/24/22 23:13: Glucometer 201H 01/25/22 05:11: Sodium Level 137, Potassium Level 3.6, Chloride Level 101, Carbon Dioxide Level 21, Anion Gap 15H, Blood Urea Nitrogen 34H, Creatinine 1.75H, Estimat Glomerular Filtration Rate 40, BUN/Creatinine Ratio 19, Glucose Level 170H, Calcium Level 9.3, Corrected Calcium 10.0, Magnesium Level 1.9, Total Bilirubin 0.9, Aspartate Amino Transf (AST/SGOT) 23, Alanine Aminotransferase (ALT/SGPT) 12, Alkaline Phosphatase 66, Total Protein 6.0L, Albumin 3.1L, Triglycerides Level 178H, Cholesterol Level 125, LDL Cholesterol Direct 70, VLDL Cholesterol 36, HDL Cholesterol 27L 01/25/22 05:23: Glucometer 155H 01/25/22 07:35: White Blood Count 6.9, Red Blood Count 2.23L, Hemoglobin 6.7#*L, Hematocrit 20*L , Mean Corpuscular Volume 91, Mean Corpuscular Hemoglobin 30, Mean Corpuscular Hemoglobin Concent 33, Red Cell Distribution Width 14.6H, Platelet Count 196, Mean Platelet Volume 9.5 01/25/22 11:18: Glucometer 221H 01/25/22 14:00: Hemoglobin 8.5#L, Hematocrit 25L 01/25/22 16:04: Glucometer 205H 01/25/22 20:12: Glucometer 241H 01/26/22 05:02: Glucometer 217H 01/26/22 05:41: White Blood Count 6.5, Red Blood Count 2.20L, Hemoglobin 6.6#*L, Hematocrit 19*L , Mean Corpuscular Volume 88, Mean Corpuscular Hemoglobin 30, Mean Corpuscular Hemoglobin Concent 34, Red Cell Distribution Width 15.2H, Platelet Count 199, Mean Platelet Volume 10.1, Immature Granulocyte % (Auto) 3, Neutrophils (%) (Auto) 66, Lymphocytes (%) (Auto) 14, Monocytes (%) (Auto) 13H, Eosinophils (%) (Auto) 3, Basophils (%) (Auto) 1, Neutrophils # (Auto) 4.3, Lymphocytes # (Auto) 0.9L, Monocytes # (Auto) 0.8, Eosinophils # (Auto) 0.2, Basophils # (Auto) 0.0, Immature Granulocyte # (Auto) 0.2H, Sodium Level 139, Potassium Level 3.2L, Chloride Level 106, Carbon Dioxide Level 19L, Anion Gap 14, Blood Urea Nitrogen 35H, Creatinine 1.63H, Estimat Glomerular Filtration Rate 43, BUN/Creatinine Ratio 21, Glucose Level 225H, Calcium Level 8.7, Corrected Calcium 9.7, Total Bilirubin 0.8, Aspartate Amino Transf (AST/SGOT) 26, Alanine Aminotransferase (ALT/SGPT) 13, Alkaline Phosphatase 58, Total Protein 5.1L, Albumin 2.7L 01/26/22 10:47: Glucometer 233H 01/26/22 16:05: Glucometer 276H 01/26/22 20:07: Glucometer 286H 01/27/22 05:42: White Blood Count 7.4, Red Blood Count 2.62L, Hemoglobin 7.9L, Hematocrit 23L, Mean Corpuscular Volume 87, Mean Corpuscular Hemoglobin 30, Mean Corpuscular Hemoglobin Concent 35, Red Cell Distribution Width 15.9H, Platelet Count 231, Mean Platelet Volume 9.8, Immature Granulocyte % (Auto) 5, Neutrophils (%) (Auto) 68, Lymphocytes (%) (Auto) 11L, Monocytes (%) (Auto) 12, Eosinophils (%) (Auto) 4, Basophils (%) (Auto) 1, Neutrophils # (Auto) 5.0, Lymphocytes # (Auto) 0.8L, Monocytes # (Auto) 0.9, Eosinophils # (Auto) 0.3, Basophils # (Auto) 0.0, Immature Granulocyte # (Auto) 0.4H, Sodium Level 142, Potassium Level 3.0L, Chloride Level 107, Carbon Dioxide Level 21, Anion Gap 14, Blood Urea Nitrogen 25H, Creatinine 1.52H, Estimat Glomerular Filtration Rate 47, BUN/Creatinine Ratio 16, Glucose Level 266H, Calcium Level 9.1, Corrected Calcium 9.9, Magnesium Level 2.1, Total Bilirubin 0.9, Aspartate Amino Transf (AST/SGOT) 33, Alanine Aminotransferase (ALT/SGPT) 30, Alkaline Phosphatase 69, Total Protein 5.6L, Albumin 3.0L 01/27/22 11:15: Glucometer 236H 01/27/22 12:36: Lab Scanned Report Transfusion Reaction Form 01/27/22 16:09: Glucometer 257H 01/27/22 20:40: Glucometer 216H 01/28/22 05:30: Magnesium Level 2.1 01/28/22 05:49: White Blood Count 8.9, Red Blood Count 2.60L, Hemoglobin 7.6L, Hematocrit 23L, Mean Corpuscular Volume 88, Mean Corpuscular Hemoglobin 29, Mean Corpuscular H emoglobin Concent 33, Red Cell Distribution Width 15.5H, Platelet Count 276, Mean Platelet Volume 9.8, Immature Granulocyte % (Auto) 4, Neutrophils (%) (Auto) 73, Lymphocytes (%) (Auto) 11L, Monocytes (%) (Auto) 11, Eosinophils (%) (Auto) 2, Basophils (%) (Auto) 0, Neutrophils # (Auto) 6.5, Lymphocytes # (Auto) 0.9L, Monocytes # (Auto) 1.0, Eosinophils # (Auto) 0.2, Basophils # (Auto) 0.0, Immature Granulocyte # (Auto) 0.3H, Sodium Level 144, Potassium Level 3.0L, Chloride Level 109H, Carbon Dioxide Level 23, Anion Gap 12, Blood Urea Nitrogen 19H, Creatinine 1.33H, Estimat Glomerular Filtration Rate 55, BUN/Creatinine Ratio 14, Glucose Level 145H, Calcium Level 9.4, Corrected Calcium 10.1, Total Bilirubin 1.1H, Aspartate Amino Transf (AST/SGOT) 20, Alanine Aminotransferase (ALT/SGPT) 24, Alkaline Phosphatase 70, Total Protein 5.7L, Albumin 3.1L Microbiology 01/23/22 Gram Stain - Final, Complete 01/23/22 Sputum Culture - Final, Complete Usual upper respiratory barney 01/21/22 Urine Culture - Final, Complete Gram Pos Mixed Bacterial Barney 01/21/22 Blood Culture - Final, Complete Staphylococcus capitis Pending Labs Microbiology Date/Time Source Procedure Growth Status 01/23/22 19:00 Sputum Endotracheal Gram Stain - Final Complete 01/23/22 19:00 Sputum Culture - Final Usual upper respiratory barney Complete 01/21/22 09:30 Urine Clean Catch Urine Culture - Final Gram Pos Mixed Bacterial Barney Complete 01/21/22 09:30 Blood Neck Blood Culture - Final Staphylococcus capitis Complete 01/21/22 09:25 Blood Not Indicated On Bottle Blood Culture - Final Staphylococcus epidermidis See Comments Complete Laboratory Tests 01/21/22 09:07: White Blood Count 10.2, Red Blood Count 3.68, Hemoglobin 11.3, Hematocrit 33, Mean Corpuscular Volume 89, Mean Corpuscular Hemoglobin 31, Mean Corpuscular Hemoglobin Concent 35, Red Cell Distribution Width 14.4, Platelet Count 239, Mean Platelet Volume 9.4, Immature Granulocyte % (Auto) 1, Neutrophils (%) (Auto) 80, Lymphocytes (%) (Auto) 9, Monocytes (%) (Auto) 10, Eosinophils (%) (Auto) 1, Basophils (%) (Auto) 0, Neutrophils # (Auto) 8.1, Lymphocytes # (Auto) 0.9, Monocytes # (Auto) 1.0, Eosinophils # (Auto) 0.1, Basophils # (Auto) 0.0, Immature Granulocyte # (Auto) 0.1, Prothrombin Time 13.4, INR Comment 1.0, Activated Partial Thromboplast Time 31, Sodium Level 138, Potassium Level 4.0, Chloride Level 104, Carbon Dioxide Level 22, Anion Gap 12, Blood Urea Nitrogen 24, Creatinine 1.14, Estimat Glomerular Filtration Rate 67, BUN/Creatinine Ratio 21, Glucose Level 167, Calcium Level 9.7, Corrected Calcium 9.5, Total Bilirubin 0.7, Aspartate Amino Transf (AST/SGOT) 16, Alanine Aminotransferase (ALT/SGPT) 19, Alkaline Phosphatase 103, Troponin I < 0.30, Pro-B-Type Natriuretic Peptide 83.6, Total Protein 6.6, Albumin 4.2 01/21/22 09:25: Lactic Acid Level 1.39 01/21/22 09:30: Urine Color YELLOW, Urine Clarity CLEAR, Urine pH 6.5, Urine Specific Williams 1.020, Urine Protein TRACE, Urine Glucose (UA) TRACE, Urine Ketones NEGATIVE, Urine Nitrite NEGATIVE, Urine Bilirubin NEGATIVE, Urine Urobilinogen 0.2, Urine Leukocyte Esterase NEGATIVE, Urine RBC (Auto) TRACE-I, Urine RBC 0-2, Urine WBC RARE, Urine Squamous Epithelial Cells NONE, Urine Crystals NONE, Urine Bacteria NEGATIVE, Urine Casts NONE, Urine Mucus NEGATIVE, Urine Culture Indicated CULTURE PENDING 01/21/22 11:49: Influenza Type A (RT-PCR) Not Detected, Influenza Type B (RT-PCR) Not Detected, SARS-CoV-2 RNA (RT-PCR) Not Detected 01/21/22 14:48: Lab Scanned Report Referred Lab Report 01/21/22 17:20: Activated Partial Thromboplast Time 139 01/22/22 01:09: Activated Partial Thromboplast Time 73 01/22/22 05:05: White Blood Count 11.8, Red Blood Count 3.63, Hemoglobin 11.1, Hematocrit 33, Mean Corpuscular Volume 91, Mean Corpuscular Hemoglobin 31, Mean Corpuscular Hemoglobin Concent 34, Red Cell Distribution Width 14.6, Platelet Count 224, Mean Platelet Volume 9.9, Sodium Level 137, Potassium Level 3.8, Chloride Level 105, Carbon Dioxide Level 19, Anion Gap 13, Blood Urea Nitrogen 20, Creatinine 1.22, Estimat Glomerular Filtration Rate 61, BUN/Creatinine Ratio 16, Glucose Level 160, Calcium Level 9.1, Corrected Calcium 9.4, Total Bilirubin 1.1, Aspartate Amino Transf (AST/SGOT) 13, Alanine Aminotransferase (ALT/SGPT) 20, Alkaline Phosphatase 86, Total Protein 6.3, Albumin 3.6 01/22/22 08:15: Activated Partial Thromboplast Time 55 01/22/22 16:40: Activated Partial Thromboplast Time 64 01/22/22 22:35: Activated Partial Thromboplast Time 57 01/23/22 05:30: Activated Partial Thromboplast Time 63, White Blood Count 8.7, Red Blood Count 3.54, Hemoglobin 11.0, Hematocrit 31, Mean Corpuscular Volume 88, Mean Corpuscular Hemoglobin 31, Mean Corpuscular Hemoglobin Concent 35, Red Cell Distribution Width 14.2, Platelet Count 202, Mean Platelet Volume 9.4, Sodium Level 131, Potassium Level 3.7, Chloride Level 101, Carbon Dioxide Level 21, Anion Gap 9, Blood Urea Nitrogen 15, Creatinine 1.01, Estimat Glomerular Filtration Rate 77, BUN/Creatinine Ratio 15, Glucose Level 178, Calcium Level 9.5, Corrected Calcium 9.9, Total Bilirubin 1.4, Aspartate Amino Transf (AST/SGOT) 13, Alanine Aminotransferase (ALT/SGPT) 21, Alkaline Phosphatase 88, Total Protein 6.4, Albumin 3.5 01/23/22 13:09: Bedside Blood Gas pH (LAB) 7.414, Bedside Blood Gas pCO2 (LAB) 37.0, Bedside Blood Gas pO2 (LAB) 261, Bedside Blood Gas HCO3 (LAB) 23.7, POC Blood Gas Total CO2 Calc 25, Bedside Bl Gas O2 Saturation (Calc) 100, Bedside Arterial Blood Base Excess -1 01/23/22 18:25: Glucometer 243 01/23/22 23:23: Glucometer 197 01/24/22 04:53: White Blood Count 8.8, Red Blood Count 3.23, Hemoglobin 9.9, Hematocrit 28, Mean Corpuscular Volume 87, Mean Corpuscular Hemoglobin 31, Mean Corpuscular Hemoglobin Concent 35, Red Cell Distribution Width 14.0, Platelet Count 231, Mean Platelet Volume 9.9, Prothrombin Time 14.6, INR Comment 1.1, Sodium Level 135, Potassium Level 3.5, Chloride Level 98, Carbon Dioxide Level 22, Anion Gap 15, Blood Urea Nitrogen 31, Creatinine 1.94, Estimat Glomerular Filtration Rate 35, BUN/Creatinine Ratio 16, Glucose Level 182, Calcium Level 9.6, Corrected Calcium 10.2, Total Bilirubin 0.6, Aspartate Amino Transf (AST/SGOT) 15, Alanine Aminotransferase (ALT/SGPT) 19, Alkaline Phosphatase 74, Total Protein 6.3, Albumin 3.2, Triglycerides Level 181, Procalcitonin 0.47 01/24/22 05:31: Phosphorus Level 3.1, Magnesium Level 1.8 01/24/22 05:59: Bedside Blood Gas pH (LAB) 7.518, Bedside Blood Gas pCO2 (LAB) 30.3, Bedside Blood Gas pO2 (LAB) 94, Bedside Blood Gas HCO3 (LAB) 24.6, POC Blood Gas Total CO2 Calc 26, Bedside Bl Gas O2 Saturation (Calc) 98, Bedside Arterial Blood Base Excess 2 01/24/22 13:27: Glucometer 197 01/24/22 18:33: Glucometer 200 01/24/22 23:13: Glucometer 201 01/25/22 05:11: Sodium Level 137, Potassium Level 3.6, Chloride Level 101, Carbon Dioxide Level 21, Anion Gap 15, Blood Urea Nitrogen 34, Creatinine 1.75, Estimat Glomerular Filtration Rate 40, BUN/Creatinine Ratio 19, Glucose Level 170, Calcium Level 9.3, Corrected Calcium 10.0, Magnesium Level 1.9, Total Bilirubin 0.9, Aspartate Amino Transf (AST/SGOT) 23, Alanine Aminotransferase (ALT/SGPT) 12, Alkaline Phosphatase 66, Total Protein 6.0, Albumin 3.1, Triglycerides Level 178, Cholesterol Level 125, LDL Cholesterol Direct 70, VLDL Cholesterol 36, HDL Cholesterol 27 01/25/22 05:23: Glucometer 155 01/25/22 07:35: White Blood Count 6.9, Red Blood Count 2.23, Hemoglobin 6.7, Hematocrit 20, Mean Corpuscular Volume 91, Mean Corpuscular Hemoglobin 30, Mean Corpuscular Hemoglobin Concent 33, Red Cell Distribution Width 14.6, Platelet Count 196, Mean Platelet Volume 9.5 01/25/22 11:18: Glucometer 221 01/25/22 14:00: Hemoglobin 8.5, Hematocrit 25 01/25/22 16:04: Glucometer 205 01/25/22 20:12: Glucometer 241 01/26/22 05:02: Glucometer 217 01/26/22 05:41: White Blood Count 6.5, Red Blood Count 2.20, Hemoglobin 6.6, Hematocrit 19, Mean Corpuscular Volume 88, Mean Corpuscular Hemoglobin 30, Mean Corpuscular Hemoglobin Concent 34, Red Cell Distribution Width 15.2, Platelet Count 199, Mean Platelet Volume 10.1, Immature Granulocyte % (Auto) 3, Neutrophils (%) (Auto) 66, Lymphocytes (%) (Auto) 14, Monocytes (%) (Auto) 13, Eosinophils (%) (Auto) 3, Basophils (%) (Auto) 1, Neutrophils # (Auto) 4.3, Lymphocytes # (Auto) 0.9, Monocytes # (Auto) 0.8, Eosinophils # (Auto) 0.2, Basophils # (Auto) 0.0, Immature Granulocyte # (Auto) 0.2, Sodium Level 139, Potassium Level 3.2, Chloride Level 106, Carbon Dioxide Level 19, Anion Gap 14, Blood Urea Nitrogen 35, Creatinine 1.63, Estimat Glomerular Filtration Rate 43, BUN/Creatinine Ratio 21, Glucose Level 225, Calcium Level 8.7, Corrected Calcium 9.7, Total Bilirubin 0.8, Aspartate Amino Transf (AST/SGOT) 26, Alanine Aminotransferase (ALT/SGPT) 13, Alkaline Phosphatase 58, Total Protein 5.1, Albumin 2.7 01/26/22 10:47: Glucometer 233 01/26/22 16:05: Glucometer 276 01/26/22 20:07: Glucometer 286 01/27/22 05:42: White Blood Count 7.4, Red Blood Count 2.62, Hemoglobin 7.9, Hematocrit 23, Mean Corpuscular Volume 87, Mean Corpuscular Hemoglobin 30, Mean Corpuscular Hemoglobin Concent 35, Red Cell Distribution Width 15.9, Platelet Count 231, Mean Platelet Volume 9.8, Immature Granulocyte % (Auto) 5, Neutrophils (%) (Auto) 68, Lymphocytes (%) (Auto) 11, Monocytes (%) (Auto) 12, Eosinophils (%) (Auto) 4, Basophils (%) (Auto) 1, Neutrophils # (Auto) 5.0, Lymphocytes # (Auto) 0.8, Monocytes # (Auto) 0.9, Eosinophils # (Auto) 0.3, Basophils # (Auto) 0.0, Immature Granulocyte # (Auto) 0.4, Sodium Level 142, Potassium Level 3.0, Chloride Level 107, Carbon Dioxide Level 21, Anion Gap 14, Blood Urea Nitrogen 25, Creatinine 1.52, Estimat Glomerular Filtration Rate 47, BUN/Creatinine Ratio 16, Glucose Level 266, Calcium Level 9.1, Corrected Calcium 9.9, Magnesium Level 2.1, Total Bilirubin 0.9, Aspartate Amino Transf (AST/SGOT) 33, Alanine Aminotransferase (ALT/SGPT) 30, Alkaline Phosphatase 69, Total Protein 5.6, Albumin 3.0 01/27/22 11:15: Glucometer 236 01/27/22 12:36: Lab Scanned Report Transfusion Reaction Form 01/27/22 16:09: Glucometer 257 01/27/22 20:40: Glucometer 216 01/28/22 05:30: Magnesium Level 2.1 01/28/22 05:49: White Blood Count 8.9, Red Blood Count 2.60, Hemoglobin 7.6, Hematocrit 23, Mean Corpuscular Volume 88, Mean Corpuscular Hemoglobin 29, Mean Corpuscular Hemoglobin Concent 33, Red Cell Distribution Width 15.5, Platelet Count 276, Mean Platelet Volume 9.8, Immature Granulocyte % (Auto) 4, Neutrophils (%) (Auto) 73, Lymphocytes (%) (Auto) 11, Monocytes (%) (Auto) 11, Eosinophils (%) (Auto) 2, Basophils (%) (Auto) 0, Neutrophils # (Auto) 6.5, Lymphocytes # (Auto) 0.9, Monocytes # (Auto) 1.0, Eosinophils # (Auto) 0.2, Basophils # (Auto) 0.0, Immature Granulocyte # (Auto) 0.3, Sodium Level 144, Potassium Level 3.0, Chloride Level 109, Carbon Dioxide Level 23, Anion Gap 12, Blood Urea Nitrogen 19, Creatinine 1.33, Estimat Glomerular Filtration Rate 55, BUN/Creatinine Ratio 14, Glucose Level 145, Calcium Level 9.4, Corrected Calcium 10.1, Total Rajinder irubin 1.1, Aspartate Amino Transf (AST/SGOT) 20, Alanine Aminotransferase (ALT/SGPT) 24, Alkaline Phosphatase 70, Total Protein 5.7, Albumin 3.1 Discharge Home Medications: Active Scripts Active Reported Omeprazole 20 Mg Capsule.dr 20 Mg PO DAILY Tadalafil 5 Mg Tablet 5 Mg PO DAILY Pregabalin 25 Mg Capsule 25 Mg PO BID Multivitamin 1 Each Tablet 1 Each PO DAILY Vitamin B-12 (Cyanocobalamin (Vitamin B-12)) 2,500 Mcg Tab.subl 2,500 Mcg SL DA ANA Zinc (Zinc Gluconate) 50 Mg Tablet 50 Mg PO DAILY Vitamin C (Ascorbate Calcium) 500 Mg Tablet 500 Mg PO DAILY Myrbetriq (Mirabegron) 50 Mg Tab.er.24h 50 Mg PO HS Clopidogrel (Clopidogrel Bisulfate) 75 Mg Tablet 75 Mg PO 1500 Sertraline HCl 100 Mg Tablet 100 Mg PO 1500 Vitamin D3 (Cholecalciferol (Vitamin D3)) 25 Mcg (1000 Unit) Tablet 25 Mcg PO DAILY Flomax (Tamsulosin HCl) 0.4 Mg Cap 0.4 Mg PO DAILY Zetia (Ezetimibe) 10 Mg Tablet 10 Mg PO DAILY Cetirizine-Pse ER 5-120 mg Tab (Cetirizine HCl/Pseudoephedrine) 5 Mg-120 Mg Tab.er.12h 1 Tab PO Q12H Excedrin Extra Strength Caplet (Aspirin/Acetaminophen/Caffeine) 1 Each Tablet 1- 2 Tab PO BID PRN Saw [place] 450 mg Capsule (Saw [place] Fruit/Zinc Picoli) 450 Mg-15 Mg Capsule 1 Cap PO DAILY Niacin 500 mg Capsule (Niacin (Inositol Niacinate)) 500 Mg Capsule 500 Mg PO HS Amlodipine Besylate 5 Mg Tablet 5 Mg PO 1500 Glipizide 5 Mg Tablet 5 Mg PO DAILY Metformin HCl 1,000 Mg Tablet 1,000 Mg PO BID Terazosin HCl 2 Mg Capsule 2 Mg PO HS Losartan Potassium 100 Mg Tablet 100 Mg PO DAILY Alprazolam 0.5 Mg Tablet 0.5 Mg PO HS Instructions to patient/family Please see electronic discharge instructions given to patient. LENNY SALDANA DO Jan 28, 2022 06:06
[2022-01-28 06:22] LABS: ALBUMIN 3.1 GM/DL (3.2-4.5); BILIRUBIN,TOTAL 1.1 MG/DL (0.1-1.0); CALCIUM 9.4 MG/DL (8.5-10.1); CREATININE SERUM 1.33 MG/DL (0.60-1.30); TOTAL PROTEIN 5.7 GM/DL (6.4-8.2)
[2022-01-28] MEDS: inSUlin ASPART (NovoLOG) 1 UNIT/0.01 ML (CHARGE PER UNIT) SC SCH (06:26)
[2022-01-28] MEDS: POTASSIUM BICARB 20 MEQ (EFFER-K) TABLET PO SCH (06:48)
[2022-01-28] MEDS: PIPERACILLIN SODIUM/TAZOBACTAM 4.5 GM in NS (IVPB) 100 ML IV SCH (06:48)
[2022-01-28] MEDS ORDERED: POTASSIUM CL 10MEQ/50ML IVPB 50 ML IV SCH (07:00)
[2022-01-28] MEDS ORDERED: MAGNESIUM 1 GM/100 ML IVPB 100 ML IV SCH (07:00)
[2022-01-28 07:33] VITALS: BP 159/84
[2022-01-28] MEDS ORDERED: POTASSIUM BICARB 20 MEQ (EFFER-K) TABLET PO SCH (08:00)
[2022-01-28] MEDS: PSEUDOEPHEDRINE HCL 30 MG (SUDAFED) TAB PO SCH (08:32)
[2022-01-28] MEDS: eZETimibe 10 MG (ZETIA) TABLET PO SCH (08:32)
[2022-01-28] MEDS: TAMSULOSIN 0.4 MG (FLOMAX) CAP PO SCH (08:32)
[2022-01-28] MEDS: LORATADINE (CLARITIN) 10 MG TAB PO SCH (08:32)
[2022-01-28] MEDS: VITAMIN D3 25 MCG (1,000 UNITS) TABLET PO SCH (08:32)
[2022-01-28] MEDS: LOSARTAN 100 MG (COZAAR) TABLET PO SCH (08:32)
[2022-01-28] MEDS: HYDROcodone/APAP 5 MG/325 MG (LORTAB) TAB PO PRN (08:33)
[2022-01-28] MEDS: PANTOPRAZOLE 20 MG TABLET (PROTONIX) PO SCH (08:33)
[2022-01-28] MEDS: PREGABALIN 25 MG (LYRICA) CAPSULE PO SCH (08:40)
[2022-01-28] MEDS: tadalafiL 5 MG TABLET (NON-FORMULARY) PO SCH (08:40)
[2022-01-28 09:14] VITALS: BP 159/84
--- NOTE | 2022-01-28 12:07 | Progress Note ---
JORGE LUIS ARBOLEDA 01/28/22 1207: Progress Note 76 M with hx of alzheimers, dementia, neuropathy, and rectal cancer was admitted for a rt hip fx repair by Dr. Valdes on 01/21/2022 following 2 falls where the pt landed on rt hip. Upon arrival, pt was hypoxic at PO2 81% and started on 4L supplemental O2. IV abx were initiated per surgical protocol as well as Dys 2 diet, DVT prophylaxis, and HTN control. Day 4 post-op pt became anemic with Hgb of 6.8 and received 2 units of blood and hold on lovenox resulting in Hgb of 7.9. Dr. Saldana met with pt and family on focusing care towards quality over quantity. PT was started to increase ambulation. Day 6 p/o, pt was hypokalemic and hyponatremic and was supplemented along with magnessium. Also, pt was continually running hyperglycemic so long acting insulin was added which has decreased glucose to 145. Nutrition met with pt and decided to continue dys 2 diet, with recommended swallow study and f/u in 72hrs. Day 7 post-op, pt was in no pain and tx to in-pt rehab for continued therapy and monitoring. A/P decreased mobility due to s/p rt hip fx repair alzheimers dementia neuropathy rectal cancer anemia hypokalemia hypoxia DM dysphagia Plan: continue IV abx therapy short and long acting insulin with glucose monitoring continue electrolyte supplementation and monitoring continue to monitor Hgb and transfuse if < 7 continue supplemental O2 continue HTN medications PT/OT with clear instruction due to cognitive decline speech therapy consult for dysphagia ANNETTE SALDANA DO 01/28/221: Supervisory-Addendum Brief Verification & Attestation Participated in pt care: history, MDM, physical Personally performed: exam, history, MDM, supervision of care Care discussed with: Medical Student Procedures: n/a Results interpretation: Verified all documentation Verification and Attestation of Medical Student E/M Service A medical student performed and documented this service in my presence. I reviewed and verified all information documented by the medical student and made modifications to such information, when appropriate. I personally performed the physical exam and medical decision making. Annette Saldana, Jan 28, 2022,21:11 JORGE LUIS ARBOLEDA Jan 28, 2022 12:07 ANNETTE SALDANA DO Jan 28, 2022 21:11
== END 2022-01-28 09:05 | DRG 521 ==
LOC: EDUNIT# 08:58 → ER FS 08:59 → CSD 14:48 → ICU 01-23 11:44 → 4TH 01-25 15:40
PROVIDERS: ADMIT Family Medicine; ATTEND Internal Medicine
PROC: 5A1945Z Respiratory Ventilation, 24-96 Consecutive Hours (ICD-10-PCS; 2022-01-23)
PROC: 0BH17EZ Insertion of Endotracheal Airway into Trachea, Via Natural or Artificial Opening (ICD-10-PCS; 2022-01-23)
PROC: 0SRR0J9 Replacement of Right Hip Joint, Femoral Surface with Synthetic Substitute, Cemented, Open Approach (ICD-10-PCS; principal; 2022-01-23 09:39)
DX: S72.011A Unspecified intracapsular fracture of right femur, initial encounter for closed fracture (principal); J96.01 Acute respiratory failure with hypoxia; C20 Malignant neoplasm of rectum; D62 Acute posthemorrhagic anemia; Z99.11 Dependence on respirator [ventilator] status; N40.0 Benign prostatic hyperplasia without lower urinary tract symptoms; Z79.4 Long term (current) use of insulin; Z20.822 Contact with and (suspected) exposure to COVID-19; E11.42 Type 2 diabetes mellitus with diabetic polyneuropathy; G30.9 Alzheimer's disease, unspecified; F02.80 Dementia in other diseases classified elsewhere, unspecified severity, without behavioral disturbance, psychotic disturbance, mood disturbance, and anxiety; Z87.891 Personal history of nicotine dependence; W18.30XA Fall on same level, unspecified, initial encounter; I12.9 Hypertensive chronic kidney disease with stage 1 through stage 4 chronic kidney disease, or unspecified chronic kidney disease; N18.9 Chronic kidney disease, unspecified; E78.2 Mixed hyperlipidemia; I35.1 Nonrheumatic aortic (valve) insufficiency; I27.20 Pulmonary hypertension, unspecified; R54 Age-related physical debility; Z92.21 Personal history of antineoplastic chemotherapy; Z92.3 Personal history of irradiation
CPT/HCPCS: 36415; 51702; 70450; 71045; 71275; 73501; 73502; 74174; 80053; 80061; 81000; 82805; 82947; 83605; 83735; 83880; 84100; 84145; 84478; 84484; 85014; 85018; 85025; 85027; 85610; 85730; 86850; 86900; 86901; 86920; 87040; 87070; 87077; 87088; 87205; 87636; 93005; 93041; 93306; 94002; 94003; 94760; 94799; 96365; 96367; 96375; 96376; Q9967

== ENCOUNTER 2022-01-28 06:40 | Inpatient (IN) | payer MEDICARE ==
[~2022-01-28] VITALS: Ht 172.7 cm; Wt 70.2 kg
[~2022-01-28 06:40] MED LIST changes: +ALPRAZolam 0.25 MG (XANAX) TAB PO PRN; +ASCO-262 PO; +BISACODYL 10 MG SUPP (DULCOLAX) PR PRN; +CALCIUM CARBONATE 500 MG (TUMS) TAB.CHEW PO PRN; +CHOL-34 PO; +CLOP75TA28 PO; +CYAN25003 SL; +DOCUSATE SODIUM 100 MG (COLACE) CAP PO PRN; +FLEET ENEMA ADULT 1 EA BTL PR PRN; +LACTULOSE SYRUP 10GM/15ML (ENULOSE) 30ML UDC PO PRN; +LOPERAMIDE 2 MG (IMODIUM) TABLET PO PRN; +MELATONIN 3 MG TABLET PO PRN; +MIRA50TA PO; +MULT-1136 PO; +OMEP20CA18 PO; +ONDANSETRON 4 MG (ZOFRAN) ORAL DISSOLVE TAB PO PRN; +PREG25CA19 PO; +SERT-414 PO; +TADA5TAB13 PO; +ZINC50TA11 PO; +diphenhydrAMINE 25 MG TAB (BENADRYL) PO PRN; +guaiFENesin/CODEINE (ROBITUSSIN AC) 10ML UDC PO PRN
--- NOTE | 2022-01-28 09:42 | PM&R Post Admission Assessment ---
PM&R HP Date of Visit: Jan 28, 2022 Time of Visit: 14:00 History of Present Illness CC: Right hip fracture debility with dementia, neuropathy and rectal cancer s/p radiation HPI: This is a 76yowM CHC who has a h/o progressive dementia and neuropathy who presents to IRF in need of strengthening in order to return home on Hospice. Patient had a lengthy course after right hip fracture repair and post op acute respiratory failure with subsequent extubation and slow recovery due to post op anemia requiring blood transfusions and PNA completing abx s/p broad spectrum coverage. BM are moving and his pain is controlled. Med surg course per [facility] 76 M with hx of alzheimers, dementia, neuropathy, and rectal cancer was admitted for a rt hip fx repair by Dr. Valdes on 01/21/2022 following 2 falls where the pt landed on rt hip. Upon arrival, pt was hypoxic at PO2 81% and started on 4L supplemental O2. IV abx were initiated per surgical protocol as well as Dys 2 diet, DVT prophylaxis, and HTN control. Day 4 post-op pt became anemic with Hgb of 6.8 and received 2 units of blood and hold on lovenox resulting in Hgb of 7.9. Dr. Saldana met with pt and family on focusing care towards quality over quantity. PT was started to increase ambulation. Day 6 p/o, pt was hypokalemic and hyponatremic and was supplemented along with magnessium. Also, pt was continually running hyperglycemic so long acting insulin was added which has decreased glucose to 145. Nutrition met with pt and decided to continue dys 2 diet, with recommended swallow study and f/u in 72hrs. Day 7 post-op, pt was in no pain and tx to in-pt rehab for continued therapy and monitoring. A/P decreased mobility due to s/p rt hip fx repair alzheimers dementia neuropathy rectal cancer anemia hypokalemia hypoxia DM dysphagia Plan: continue IV abx therapy short and long acting insulin with glucose monitoring continue electrolyte supplementation and monitoring continue to monitor Hgb and transfuse if < 7 continue supplemental O2 continue HTN medications PT/OT with clear instruction due to cognitive decline speech therapy consult for dysphagia Past Kptjeat-Eqsrao-Kmwcqy Hx Past Med/Social Hx: Reviewed Nursing Past Med/Soc Hx, Reviewed and Corrections made Patient Social History Marrital Status: Employed/Student: retired Alcohol Use: Denies Use Smoking Status: Former Smoker Type Used: Electronic/Vapor Immunizations Up To Date Date of Pneumonia Vaccine: Mar 08, 2018 Date of Influenza Vaccine: Mar 26, 2018 Past Medical History Surgeries: Orthopedic hernia repair 2 small lung mass Cardiac: High Cholesterol, Hypertension Neurological: Dementia, TIA Genitourinary: Benign Prostatic Hyperpl Gastrointestinal: Chronic Constipation Musculoskeletal: Arthritis, Chronic Back Pain Endocrine: Diabetes, Non-Insulin dep Cancer: Rectal Did You Recieve Any Treatments: Yes What Type of Treatment Did You: Radiation Family History Alzheimer's disease G8 BROTHER Asthma G8 BROTHER Cardiovascular disease 19 FATHER G8 BROTHER Fibrocystic disease of breast G8 SISTER Hypertension G8 BROTHER G8 SISTER Myocardial infarction G8 BROTHER PM&R Allergy/Meds/Data Review Allergies Coded Allergies: Xpkwsql-SBZ-GqX Reductase Inhibitor (Verified Allergy, Unknown, 01/21/22) Home Medications Scheduled Alprazolam (Alprazolam), 0.5 MG PO HS, (Reported) Amlodipine Besylate (Amlodipine Besylate), 5 MG PO 1500, (Reported) Ascorbate Calcium (Vitamin C), 500 MG PO DAILY, (Reported) Cetirizine HCl/Pseudoephedrine (Cetirizine-Pse ER 5-120 mg Tab), 1 TAB PO Q12H, (Reported) Cholecalciferol (Vitamin D3) (Vitamin D3), 25 MCG PO DAILY, (Reported) Clopidogrel Bisulfate (Clopidogrel), 75 MG PO 1500, (Reported) Cyanocobalamin (Vitamin B-12) (Vitamin B-12), 2,500 MCG SL DAILY, (Reported) Ezetimibe (Zetia), 10 MG PO DAILY, (Reported) Glipizide (Glipizide), 5 MG PO DAILY, (Reported) Losartan Potassium (Losartan Potassium), 100 MG PO DAILY, (Reported) Metformin HCl (Metformin HCl), 1,000 MG PO BID, (Reported) Mirabegron (Myrbetriq), 50 MG PO HS, (Reported) Multivitamin (Multivitamin), 1 EACH PO DAILY, (Reported) Niacin (Inositol Niacinate) (Niacin 500 mg Capsule), 500 MG PO HS, (Reported) Omeprazole (Omeprazole), 20 MG PO DAILY, (Reported) Pregabalin (Pregabalin), 25 MG PO BID, (Reported) Saw Duff Fruit/Zinc Picoli (Saw Duff 450 mg Capsule), 1 CAP PO DAILY, (Reported) Sertraline HCl (Sertraline HCl), 100 MG PO 1500, (Reported) Tadalafil (Tadalafil), 5 MG PO DAILY, (Reported) Tamsulosin HCl (Flomax), 0.4 MG PO DAILY, (Reported) Terazosin HCl (Terazosin HCl), 2 MG PO HS, (Reported) Zinc Gluconate (Zinc), 50 MG PO DAILY, (Reported) Scheduled PRN Aspirin/Acetaminophen/Caffeine (Excedrin Extra Strength Caplet), 1-2 TAB PO BID PRN for PAIN-MILD, (Reported) Discontinued Medications Aspirin (Aspirin EC), 325 MG PO DAILY, (Reported) Discontinued Reason: No Longer Taking Baclofen (Baclofen), 10 MG PO Q8HR PRN for MUSCLE SPASM Gabapentin (Gabapentin), 100 MG PO HS, (Reported) Discontinued Reason: No Longer Taking Hydrocodone Bit/Acetaminophen (HYDROcodone/APAP 10/325 TABLET), 1-2 EA PO Q4H PRN for PAIN-MODERATE Multivit-Min/FA/Lycopene/Lut (Complete Multi 50+ Tablet), 1 TAB PO DAILY, (Reported) Discontinued Reason: Prescription changed Sennosides/Docusate Sodium (Senna-Time S Tablet), 2 EA PO BID Tolterodine Tartrate (Detrol LA), 4 MG PO HS [Trospium Chloride], 20 MG PO DAILY@06,16 Current Medications Current Medications Reviewed Review of Systems Constitutional: see HPI, malaise, weakness EENTM: no symptoms reported Respiratory: no symptoms reported Cardiovascular: no symptoms reported Gastrointestinal: no symptoms reported Genitourinary: other (retention) Musculoskeletal: back pain, joint pain Skin: no symptoms reported Psychiatric/Neurological: Anxiety, Depressed All Other Systems Reviewed Negative Unless Noted: Yes Physical Exam Physical Exam Vital Signs Capillary Refill : Height, Weight, BMI Height: '" Weight: lbs. oz. kg; 23.40 BMI Method: General Appearance: No Apparent Distress, WD/WN, Chronically ill, Thin Eyes: Bilateral Eye Normal Inspection, Bilateral Eye PERRL HEENT: PERRL/EOMI, Normal ENT Inspection, Pharynx Normal Neck: Full Range of Motion, Normal Inspection, Non Tender, Supple, Carotid Bruit Respiratory: Chest Non Tender, Lungs Clear, Normal Breath Sounds, No Accessory Muscle Use, No Respiratory Distress, Decreased Breath Sounds Cardiovascular: Regular Rate, Rhythm, No Edema, No Gallop, No JVD, No Murmur, Normal Peripheral Pulses Gastrointestinal: Normal Bowel Sounds, No Organomegaly, No Pulsatile Mass, Non Tender, Soft Back: Normal Inspection, No CVA Tenderness, No Vertebral Tenderness Extremity: Normal Capillary Refill, Normal Inspection, Normal Range of Motion, Non Tender, No Calf Tenderness, No Pedal Edema Neurologic/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: 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, 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 Norm as Tested, Abnormal Gait, Depressed Affect, Disoriented, Motor Weakness (generalized but specifically right leg) Skin: Normal Color, Warm/Dry Lymphatic: No Adenopathy PM&R Medical Assessment & Plan REHAB/MEDICAL ASSESSMENT AND PLAN: REHAB IMPAIRMENT GROUP: Right hip fracture ETIOLOGIC DIAGNOSIS: Right hip fracture The comorbidities that impact the patients function and/or functional outcome by: advanced age, dementia, rectal cancer, recent post op resp failure, anemia requiring transfusions REHAB PLAN: The patient is being admitted to our comprehensive inpatient rehabilitation facility and can tolerate the intensity of service consisting of at least: 180 minutes of therapy a day, 5 out of 7 days a week Rehab treatment will consist of: PT OT will focus on regaining some function with transfers and help with assisitive devices in order to return home with on Hospice instead of NH The patient/family has a good understanding of our discharge process and will benefit from an interdisciplinary inpatient rehabilitation program. The patient has potential to make improvement and is in need of at least two of the following multidisciplinary therapies including but not limited to physical, occupational, speech, and prosthetics and orthotics. Additionally the patient will need services from respiratory, nutritional services, wound care, psychology, etc. (Customize this to each patient). Given the patients complex condition and risk of further medical complications, rehabilitation services cannot be safely or effectively provided at a lower level of care such as a long term facility. BARRIERS TO DISCHARGE: dementia ESTIMATED LOS: 7 days DISPOSITION: Home on hospice RELEVANT CHANGES SINCE PREADMISSION SCREENING: I have compared the patients medical and functional status at the time of the p readmission screening and there are: no changes PROGNOSIS: Fair REHABILITATION GOALS: 1. PT OT will focus on regaining some function with transfers and help with assisitive devices in order to return home with on Hospice instead of NH All the above goals were reviewed with the patient and he/she is in agreement. By signing this document, I acknowledge that I have personally performed a full physical examination on this patient within 24 hours of admission to this inpatient rehabilitation facility and have determined the patient to be able to tolerate the above course of treatment at an intensive level for a reasonable period of time. I will be completing a detailed individualized Plan of Care for this patient by day #4 of the patients stay based upon the Preadmission Screen, the Post-Admission Evaluation, and the therapy evaluations. Admission Dx/Comorbidities: (1) Closed right hip fracture Status: Acute ICD Codes: S72.001A - Fracture of unspecified part of neck of right femur, initial encounter for closed fracture (2) Diabetes mellitus Status: Chronic ICD Codes: E11.9 - Type 2 diabetes mellitus without complications (3) Dementia Status: Chronic ICD Codes: F03.90 - Unspecified dementia without behavioral disturbance (4) Hypertension ICD Codes: I10 - Essential (primary) hypertension (5) BPH (benign prostatic hyperplasia) Status: Chronic ICD Codes: N40.0 - Benign prostatic hyperplasia without lower urinary tract symptoms (6) DVT prophylaxis Status: Acute ICD Codes: Z29.9 - Encounter for prophylactic measures, unspecified (7) Acute kidney injury superimposed on chronic kidney disease ICD Codes: N17.9 - Acute kidney failure, unspecified; N18.9 - Chronic kidney disease, unspecified (8) Primary hypertension ICD Codes: I10 - Essential (primary) hypertension (9) Mixed hyperlipidemia ICD Codes: E78.2 - Mixed hyperlipidemia (10) Aortic regurgitation ICD Codes: I35.1 - Nonrheumatic aortic (valve) insufficiency (11) Pulmonary hypertension ICD Codes: I27.20 - Pulmonary hypertension, unspecified (12) Smoker ICD Codes: F17.200 - Nicotine dependence, unspecified, uncomplicated (13) Hyperlipidemia ICD Codes: E78.5 - Hyperlipidemia, unspecified (14) Frailty ICD Codes: R54 - Age-related physical debility Assessment/Plan Assessment and Plan Assess & Plan/Chief Complaint Assessment: Status post right hip fracture with post op complication of acute respiratory failure due to PNA requiring intubation Dementia TIA history Smoker Hypertension Hyperlipidemia Chronic constipation BPH New urinary incontinence Diabetes mellitus Rectal carcinoma s/p radiation only not tolerated well via [facility] Anemia s/p transfusions of 2 units of blood KATH on admit Hamilton cath in place Neuropathy Plan: PT OT Pain control Monitor closely SALDANA,LENNY DO Jan 28, 2022 09:42
[2022-01-28] MEDS: DOCUSATE SODIUM 100 MG (COLACE) CAP PO SCH ×2 (10:22→21:00)
[2022-01-28] MEDS: SENNA W/DOCUSATE (SENOKOT S) TABLET PO SCH ×2 (10:23→21:00)
[2022-01-28] MEDS: polyethylene glycoL POWDER 17 GM (MIRALAX) PACK PO SCH ×2 (10:23→21:00)
[2022-01-28 10:30] VITALS: BP 118/58
[2022-01-28] MEDS ORDERED: HYDROcodone/APAP 5 MG/325 MG (LORTAB) TAB PO PRN (10:45)
--- NOTE | 2022-01-28 11:01 | Physical Therapy Evaluation ---
PT Evaluation-General Medical Diagnosis Admission Date Jan 28, 2022 at 09:50 Medical Diagnosis: RIGHT HIP FRACTURE Onset Date: Jan 24, 2022 Therapy Diagnosis Therapy Diagnosis: Gait deficit, strength deficit Precautions Precautions/Isolations: Aspiration, Fall Prevention, Standard Precautions, Pressure Ulcer Weight Bear Status Right Lower Extremity: Right Weight Bearing/Tolerated Left Lower Extremity: Left Full Weight Bearing Referral Physician: Dr. Saldana Reason for Referral: Evaluation/Treatment Medical History Pertinent Medical History: CAD, Dementia, HTN, Neuropathy Reviewed History: Yes Social History Home: Single Level Current Living Status: Spouse Entry Into Home: Stairs With Railing PT Steps Into Home: 5 Prior Prior Level of Function SCALE: Activities may be completed with or without assistive devices. 7-Tchrgogidl-jhjqkff completes the activity by him/herself with no assistance from a helper. 5-Set-up or Clean-up Assistance-helper sets up or cleans up; patient completes activity. Gates assists only prior to or following the activity. 4-Supervision or Touching Assistance-helper provides verbal cues and/or touching/steadying and/or contact guard assistance as patient completes activity. Assistance may be provided throughout the activity or intermittently. 3-Partial/Moderate Assistance-helper does LESS THAN HALF the effort. Gates lifts, holds or supports trunk or limbs, but provides less than half the effort. 2-Substantial/Maximal Assistance-helper does MORE THAN HALF the effort. Gates lifts or holds trunk or limbs and provides more than half the effort. 9-Whavuvega-wdsrhf does ALL the effort. Patient does none of the effort to complete the activity. Or, the assistance of 2 or more helpers is required for the patient to complete the activity. If activity was not attempted, code reason: 7-Patient Refused. 9-Not Applicable-not attempted and the patient did not perform the activity before the current illness, exacerbation or injury. 10-Not Attempted due to Environmental Limitations-(lack of equipment, weather restraints, etc.). 88-Not Attempted due to Medical Conditions or Safety Concerns. Bed Mobility: 6 Transfers (B,C,W/C): 6 Gait: 6 Stairs: 6 Indoor Mobility (Ambulation): Independent Stairs: Independent Prior Devices Use: Walker Daughter in law reports patient has a 4WW at home, but does not use it. Reports his balance has been poor lately and he has had numerous falls. PT Evaluation-Current Subjective Patient lying supine in bed upon PT arrival, drowsy but agreeable to ARU evaluation. Daughter in law in the room and assists with subjective information. Patient rates pain at 0/10 currently. Objective Patient Orientation: Person Attachments: Oxygen, Hamilton Catheter, IV ROM/Strength ROM Lower Extremities Right hip and knee limited all planes due to pain and patient guarding. Left LE WFLs AROM Strength Lower Extremities Right hip and knee 3-/5 all planes, ankle 3/5 all planes. Left LE 4-/5 all planes. Sensory Vision: Functional Hearing: Functional Sensation Right Lower Extremit: Impaired Sensation Left Lower Extremity: Impaired Sensation Lower Extremities Patient unable to identify LE dermatomes bilaterally to light touch, however unsure if this is due to lack of sensation, cognitive levels or patient simply being tired and sleepy. Transfers Roll Left & Right (QC): 3 Sit to Lying (QC): 2 Lying to Sitting/Side of Bed(Q: 2 Sit to Stand (QC): 2 Chair/Qwr-ei-Mgyzq Xfer(QC): 2 Toilet Transfer (QC): 2 Car Transfer (QC): 2 Gait Does the Patient Walk?: Yes Mode of Locomotion: Both Anticipated Mode of Locomotion: Both Walk 10 feet (QC): 2 Walk 50 ft with 2 Turns(QC): 88 Walk 150 ft (QC): 88 Walking 10ft/uneven surface-QC: 88 Distance: 10 Gait Assistive Device: FWW Comments/Gait Description Patient requires max assistance from PT to ambulate 10 feet. He tends to lean heavily on the therapist towards his left LE and requires max A to shift weight to his right LE so that the left LE can move forwards. Wheelchair Training Does the Pt Use a Wheelchair?: Yes Distance: 50 Wheel 50 ft with 2 turns (QC): 3 Wheel 150 ft (QC): 88 Type of Wheelchair: Manual Frequent verbal cues for objects, safety and performance. Frequent encouragement as patient fatigued quickly. Stairs #of Steps: 0 1 Step (curb) (QC): 88 4 Steps (QC): 88 12 Steps (QC): 88 Balance Sitting Static: Fair Sitting Dynamic: Poor Standing Static: Poor Standing Dynamic: Poor Picking up an Object (QC): 88 Assessment/Needs Patient tolerated treatment fair when he was able to stay awake. He was drowsy throughout evaluation and treatment. Patient frequently awakened to perform activities; he was agreeable to treatment and put forth good effort when he could, he was merely tired and fell asleep frequently. Patient performs rolling in bed with mod A, all other transfers with max A. Patient ambulates 10 feet with FWW, with max A and frequent, if not continuous verbal cues for posture, safety, performance, weight shifting and progression of LEs. Patient performs wheelchair mobility x 50 feet with min a and frequent verbal cues for progression, and performance. Patient performs LE therapeutic exercises of AP, LAQ, Hamstring curls, hip adduction with ball, hip abduction with yellow band x 10-20 reps each. Patient in w/c post treatment with all needs met, nurse in the room, call light in hand and OT beginning evaluation. Rehab Potential: Poor PT Collection Technician Goals Group Home Goals PT Collection Technician Goals Time Frame: Feb 14, 2022 Roll Left & Right (QC): 4 Sit to Lying (QC): 4 Lying-Sitting on Side/Bed(QC): 4 Sit to Stand (QC): 4 Chair/Jfi-wc-Wktaq Xfer(QC): 4 Toilet Transfer (QC): 4 Car Transfer (QC): 4 Does the Patient Walk: Yes Walk 10 feet (QC): 4 Walk 50ft with 2 Turns (QC): 4 Walk 150 ft (QC): 3 Walking 10ft on Uneven Surface: 4 1 Step (curb) (QC): 2 4 Steps (QC): 2 12 Steps (QC): 88 Picking up an Object (QC): 4 Does the Pt use WC or Scooter?: Yes Wheel 50 feet with 2 turns (QC: 5 Type: Manual Wheel 150 feet: 5 Type: Manual PT Plan Problem List Problem List: Activity Tolerance, Functional Strength, Safety, Balance, Gait, Transfer, Bed Mobility, ROM Treatment/Plan Treatment Plan: Continue Plan of Care Treatment Plan: Bed Mobility, Education, Functional Activity Edmund, Functional Strength, Group Therapy, Gait, Safety, Therapeutic Exercise, Transfers Treatment Duration: Mar 07, 2022 Frequency: At least 5 of 7 days/Wk (IRF) Estimated Hrs Per Day: 1.5 hours per day Patient and/or Family Agrees t: Yes Safety Risks/Education Patient Education: Gait Training, Transfer Techniques, Safety Issues Teaching Recipient: Patient, Family Teaching Methods: Demonstration, Discussion Response to Teaching: Reinforcement Needed Time/GCodes Time In: 915 Time Out: 1030 Total Billed Treatment Time: 75 Total Billed Treatment Visit, EVM (10 Min), FA (15 min), Gait (15 min), W/C (20 min), Ex (15) SIS GOMES PT Jan 28, 2022 11:01
--- NOTE | 2022-01-28 11:32 | Progress Note - Ortho ---
Progress Note Subjective Date of Exam 01/28/22 Chief Complaint POD#5 Cemented bipolar hemiarthroplasty right hip for a nondisplaced subcapital fracture HPI/Events since last exam Mr. Cabral is now 5 days postop. He has been transferred to inpatient rehab. He has no complaints of the right hip. When I saw him he was up sitting in a wheelchair Review of Systems Reviewed and no additions or changes Allergies: Coded Allergies: Odlzzgo-QMX-KuE Reductase Inhibitor (Verified Allergy, Unknown, 01/21/22) Home Meds Reported Medications Omeprazole (Omeprazole) 20 Mg Capsule.dr, 20 MG PO DAILY, CAP 01/22/22 Tadalafil (Tadalafil) 5 Mg Tablet, 5 MG PO DAILY, TAB 01/22/22 Pregabalin (Pregabalin) 25 Mg Capsule, 25 MG PO BID, CAP 01/22/22 Multivitamin (Multivitamin) 1 Each Tablet, 1 EACH PO DAILY, TAB 01/22/22 Cyanocobalamin (Vitamin B-12) (Vitamin B-12) 2,500 Mcg Tab.subl, 2500 MCG SL DAILY, TAB 01/21/22 Zinc Gluconate (Zinc) 50 Mg Tablet, 50 MG PO DAILY, TAB 01/21/22 Ascorbate Calcium (Vitamin C) 500 Mg Tablet, 500 MG PO DAILY, TAB 01/21/22 Mirabegron (Myrbetriq) 50 Mg Tab.er.24h, 50 MG PO HS, TAB 01/21/22 Clopidogrel Bisulfate (Clopidogrel) 75 Mg Tablet, 75 MG PO 1500, TAB 01/21/22 Sertraline HCl (Sertraline HCl) 100 Mg Tablet, 100 MG PO 1500, TAB 01/21/22 Cholecalciferol (Vitamin D3) (Vitamin D3) 25 Mcg (1000 Unit) Tablet, 25 MCG PO DAILY, TAB 01/21/22 Tamsulosin HCl (Flomax) 0.4 Mg Cap, 0.4 MG PO DAILY, CAP 03/28/19 Ezetimibe (Zetia) 10 Mg Tablet, 10 MG PO DAILY, TAB 03/28/19 Cetirizine HCl/Pseudoephedrine (Cetirizine-Pse ER 5-120 mg Tab) 5 Mg-120 Mg Tab.er.12h, 1 TAB PO Q12H, TAB 03/28/19 Aspirin/Acetaminophen/Caffeine (Excedrin Extra Strength Caplet) 1 Each Tablet, 1-2 TAB PO BID PRN for PAIN-MILD, TAB 03/28/19 Saw Frederick Fruit/Zinc Picoli (Saw Frederick 450 mg Capsule) 450 Mg-15 Mg Capsule, 1 CAP PO DAILY, CAP 03/28/19 Niacin (Inositol Niacinate) (Niacin 500 mg Capsule) 500 Mg Capsule, 500 MG PO HS, CAP 03/28/19 Amlodipine Besylate (Amlodipine Besylate) 5 Mg Tablet, 5 MG PO 1500, TAB 03/28/19 Glipizide (Glipizide) 5 Mg Tablet, 5 MG PO DAILY, TAB 03/28/19 Metformin HCl (Metformin HCl) 1,000 Mg Tablet, 1000 MG PO BID, TAB 03/28/19 Terazosin HCl (Terazosin HCl) 2 Mg Capsule, 2 MG PO HS, CAP 03/28/19 Losartan Potassium (Losartan Potassium) 100 Mg Tablet, 100 MG PO DAILY, TAB 03/28/19 Alprazolam (Alprazolam) 0.5 Mg Tablet, 0.5 MG PO HS, TAB 03/28/19 Discontinued Reported Medications Gabapentin (Gabapentin) 100 Mg Capsule, 100 MG PO HS, CAP 03/28/19 Aspirin (Aspirin EC) 325 Mg Tablet.dr, 325 MG PO DAILY, TAB 03/28/19 Multivit-Min/FA/Lycopene/Lut (Complete Multi 50+ Tablet) 1 Each Tablet, 1 TAB PO DAILY, TAB 03/28/19 Discontinued Scripts [Trospium Tablet] 20 MG TAB No Conflict Check, 20 MG PO DAILY@06,16, #30 TAB Prov:LENNY CAVANAUGH DO 04/01/19 Tolterodine Tartrate (Detrol LA) 4 Mg Cap, 4 MG PO HS, #30 CAP Prov:LENNY CAVANAUGH DO 04/01/19 Sennosides/Docusate Sodium (Senna-Time S Tablet) 1 Each Tablet, 2 EA PO BID, #60 TAB Prov:LENNY CAVANAUGH DO 04/01/19 Hydrocodone Bit/Acetaminophen (HYDROcodone/APAP 10/325 TABLET) 1 Each Tablet, 1- 2 EA PO Q4H PRN for PAIN-MODERATE, #30 TAB Prov:LENNY CAVANAUGH DO 04/01/19 Baclofen (Baclofen) 10 Mg Tablet, 10 MG PO Q8HR PRN for MUSCLE SPASM, #30 TAB Prov:LENNY CAVANAUGH DO 04/01/19 Objective Exam Constitutional: [] HEENT: [] Neck: [] Cardiovascular: [] Respiratory: [] Gastrointestinal: [] Genitourinary: [] Skin: [] Back/Spine: [] Extremities: [Right leg was in good position and equal to the left side. No calf tenderness and negative Homans. Normal sensation of the foot and toes with good cap refill and equal pulses. It was hard to see his complete dressing but what I saw the it showed no bloody drainage and was intact. No swelling in the thigh or calf] Neurologic: [] Psychiatric: [] Hematologic/lymphatic/immunologic: [] Vital Signs Vital Signs Date Time Temp Pulse Resp B/P (MAP) Pulse Ox O2 Delivery O2 Flow Rate FiO2 01/28/22 10:30 37.0 74 20 118/58 (78) 98 Lab Results Laboratory Tests 01/28/22 11:12: Glucometer 151H Assessment and Plan Assessment 5 days postop Problem List Unchanged Plan Continue physical therapy occupational therapy. Walker ambulation full weightbearing on the right lower extremity. Dressing change every other day. Final Diagonsis Nondisplaced subcapital fracture right hip status post cemented bipolar hemiarthroplasty Level of the visit: Level 3 TEMI CHAVEZ MD Jan 28, 2022 11:32
--- NOTE | 2022-01-28 11:41 | Occupational Therapy Eval ---
OT Evaluation-General/PLF Medical Diagnosis Admission Date Jan 28, 2022 at 09:50 Medical Diagnosis: R hip fracture Onset Date: Jan 21, 2022 Therapy Diagnosis Therapy Diagnosis: reduced adl status Precautions Precautions/Isolations: Aspiration, Fall Prevention, Standard Precautions, Pressure Ulcer Weight Bear Status Weight Bearing Restriction: Weight Bearing/Tolerated Location Restriction: R LE Referral Physician: Les Hodge Reason: Evaluation/Treatment Medical History Pertinent Medical History: CAD, Dementia, HTN, Neuropathy Current History s/p fall resulting in R hip fx. Per spouse, pt required assist with adls while receiving radiation treatments (due to fatigue and weakness) however is independent when not on treatments. He was using a walker at baseline. His manages all the iadls however pt is able to do simple meal prep. Reviewed History: Yes Social History Home: Single Level Current Living Status: Spouse ADL-Prior Level of Function SCALE: Activities may be completed with or without assistive devices. 3-Xqigauzngi-mzrlrac completes the activity by him/herself with no assistance from a helper. 5-Set-up or Clean-up Assistance-helper sets up or cleans up; patient completes activity. [place] assists only prior to or following the activity. 4-Supervision or Touching Assistance-helper provides verbal cues and/or touching /steadying and/or contact guard assistance as patient completes activity. Assistance may be provided throughout the activity or intermittently. 3-Partial/Moderate Assistance-helper does LESS THAN HALF the effort. [place] lifts, holds or supports trunk or limbs, but provides less than half the effort. 2-Substantial/Maximal Assistance-helper does MORE THAN HALF the effort. [place] lifts or holds trunk or limbs and provides more than half the effort. 3-Uxvsluqka-tkmyhq does ALL the effort. Patient does none of the effort to complete the activity. Or, the assistance of 2 or more helpers is required for the patient to complete the activity. If activity was not attempted, code reason: 7-Patient Refused. 9-Not Applicable-not attempted and the patient did not perform the activity before the current illness, exacerbation or injury. 10-Not Attempted due to Environmental Limitations-(lack of equipment, weather restraints, etc.). 88-Not Attempted due to Medical Conditions or Safety Concerns. Self Care: Needed Some Help Functional Cognition: Needed Some Help DME/Equipment: Shower (built in seat) Drive Self: No OT Current Status Subjective Pt lethargic, requires several cues to waken/participate. Appearance Pt left sitting in w/c, family in the room at OT departure. Mental Status/Objective Patient Orientation: Person Attachments: Hamilton Catheter, IV, Oxygen (3L) Current Glasses/Contacts: Yes Hearing Aids: No Dentures/Partials: No Hand Dominance: Right Upper Extremity Strength debilitated ADL-Treatment Eating (QC): 2 (per clinical judgment) Oral Hygiene (QC): 2 Shower/Bathe Self (QC): 1 Upper Body Dressing (QC): 1 Lower Body Dressing (QC): 1 On/Off Footwear (QC): 1 Toileting Hygiene (QC): 1 Pt sleeping in w/c at OT arrival. Lethargic, easy to rouse but unable to remain awake throughout treatment. reports patient usually sleeps from [id number] and is up at night. Due to IV infusing and lethargy, shower deferred at this time. Zero initiation throughout activity. Requires HOHA and tactile cues to initiate washing face and under bilateral arms. Significant time to wash 3 body parts. Pt likely would require same assist to initiate washing abdomen, arms, and upper thighs. Anticipate dependency to wash below knees secondary to hip precautions and pt's inability to follow directions with AE. Step by step verbal/tactile cues to don shirt. Pt unable to remain awake long enough to hear/follow cues, thus dependent for every step of donning shirt. Attempt at educating pt on use of AE for LB dressing, however due to Alzheimer's and lethargy, pt unable to follow commands. Due to cognitive deficits, pt may be dependent with threading feet through LB clothing in order to adhere to hip precautions. will be educated on what assist will be needed. Max a to stand and maintain balance as 2nd person pulled clothing up over hips. Pressure wound noted on buttocks, RN present. Max a to complete oral care in sitting as pt required assist with set up, HOHA to maintain grasp on electric toothbrush, and assist to brush all quadrants of mouth. Education OT Patient Education: Correct positioning, Disease process, Instructions to caregiver, Modified ADL techniques, Purpose of tx/functional activities, Reviewed precautions, Rehab process, Safety issues, Transfer techniques, Use of adapted equipment, W/C management Teaching Recipient: Patient, Family Teaching Methods: Demonstration, Discussion Response to Teaching: Unable to Return Demonstration, Unable to Comprehend, Reinforcement Needed OT Short Term Goals Short Term Goals Time Frame: Feb 11, 2022 Eatin Oral hygiene: 3 Toileting hygiene: 3 Shower/bathe self: 2 Upper body dressin Lower body dressin Putting on/taking off footwear: 2 OT Rotor Pilot Goals Jail Goals Time Frame: Feb 25, 2022 Eating (QC): 5 Oral Hygiene (QC): 5 Toileting Hygiene (QC): 4 Shower/Bathe Self (QC): 3 Upper Body Dressing (QC): 4 Lower Body Dressing (QC): 3 On/Off Footwear (QC): 2 1=Demonstrate adherence to instructed precautions during ADL tasks. 2=Patient will verbalize/demonstrate understanding of assistive devices/modifications for ADL. 3=Patient will improve strength/tolerance for activity to enable patient to perform ADL's. OT Education/Plan Problem List/Assessment Assessment: Decreased Activ Tolerance, Decreased Safety Aware, Decreased UE Strength, Dependent Transfers, Impaired Bed Mobility, Impaired Cognition, Impaired Coordination, Impaired Funct Balance, Impaired Self-Care Skills, Restricted Funct UE ROM Discharge Recommendations Plan/Recommendations: Continue POC Therapy Discharge Recommendati: Post Acute OT Treatment Plan/Plan of Care Treatment,Training & Education: Yes Patient would benefit from OT for education, treatment and training to promote independence in ADL's, mobility, safety and/or upper extremity function for ADL's. Plan of Care: ADL Retraining, Caregiver Training, Cognitive Retraining, Concurrent Therapy, Functional Mobility, Group Exercise/Act as Ind, UE Funct Exercise/Act, W/C Management Training Treatment Duration: Feb 25, 2022 Frequency: At least 5 of 7 days/Wk (IRF) Estimated Hrs Per Day: 1.5 hours per day (75-90 min/day) Rehab Potential: Poor Time/GCodes Start Time: 10:30 Stop Time: 11:25 Total Time Billed (hr/min): 55 Billed Treatment Time 1 visit EVH (10 min) ADL x3 (45 min) Kayla Desai OT Jan 28, 2022 11:41
[2022-01-28] MEDS: inSUlin ASPART (NovoLOG) 1 UNIT/0.01 ML (CHARGE PER UNIT) SC SCH ×3 (12:08→21:23)
--- NOTE | 2022-01-28 12:57 | ST Dysphagia Evaluation ---
Speech Evaluation-General Medical Diagnosis R Hip Fracture Onset Date: Jan 21, 2022 Therapy Diagnosis Therapy Diagnosis: Oropharyngeal Dysphagia Precautions Precautions: Fall, Pressure Ulcer, Aspiration, Hip Precautions/Isolations: Aspiration, Fall Prevention, Standard Precautions, Pressure Ulcer Referral Referring Physician: Dr. Saldana Reason for Referral: Evaluation/Treatment Medical History Pertinent Medical History: CAD, Dementia, HTN, Neuropathy Current History The patient is a 76 year-old male with a past medical history significant for CAD, dementia, HTN, and neuropathy, who presents to ARU following a right hip fracture repair. Reviewed History: Yes Social History Current Living Status: Spouse Speech PLF/Current-Dysphagia Prior Level of Function The patient and the patient's reported the patient consumed a regular consistency diet with thin liquids prior to hospitalization. Subjective The patient was seated upright in his wheelchair, sleeping upon entrance to his room by the clinician. With maximum verbal prompting, the patient woke but remained fatigued throughout the evaluation. The patient greeted the clinician appropriately and was agreeable to participation in the clinical bedside swallowing evaluation. The patient was evaluated prior to surgery and intubation by speech pathology on the acute floor. At that time, the patient was placed on a dysphagia two consistency diet with nectar-thick liquids. CXR: 01/23/2022: "Left basilar atelectasis is similar. No pneumothorax or pleural effusion. Heart is normal in size. Right upper lobe ill-defined pulmonary consolidations are stable." The patient is receiving 3.5 liters of supplemental oxygen. Cognitive Status Patient Orientation: Confused Oral Motor Skills Current Food Consistancy: Dysphagia Soft, [place] Liquids Ability to Follow Directions: Fair Oral Expression Ability: Moderate Impairment Voice Voice Phonatory-Based Quality: Glottal Nam Voice Pitch: Normal Voice Loudness: Moderately Soft/Quiet Face Facial Symmetry: Symmetrical (At rest.) Oral-Facial Assessment Oral-Facial Dentition: Normal Labial Seal Description: Weak Smile: Reduced ROM Puff Cheeks: Reduced Strength Lingual Protrusion: Normal Lingual ROM: Normal Lingual Strength: Abnormal (Weak.) Volitional Dry Swallow: Yes (With maximum verbal prompting.) Voluntary Cough: Yes (Weak.) Can Clear Throat Volitionally: Yes Productive Cough: Yes (Weak.) Productive Throat Clear: Yes Dysphagia Evaluation Consistencies Presented: Regular, Thin Liquid, Pureed Oral Phase: Reduced Oral Transit The patient displays oral holding with all consistencies provided, requiring verbal prompting for elicitation of posterior transfer. Prolonged mastication was present with the dry, solid consistency. Laryngeal elevation was present to palpation. A delayed onset of the pharyngeal swallow was suspected. The patient consumed multiple boluses of thin liquid via straw, teaspoons of puree, and solid consistencies. Overt s/s of suspected aspiration were not demonstrated. Recommendations: - Dysphagia two consistency diet with thin liquids, as tolerated. - Fully upright and ALERT for P.O. intake. - 1:1 full staff supervision and feeding assistance throughout P.O. intake. - Small, single bites and sips. - Consider nutritional supplements to meet daily nutritional needs. - Monitor for s/s of suspected aspiration with P.O. intake. If demonstrated, place the patient NPO. The results and recommendations were discussed extensively with the patient and the patient's immediately following completion. The clinician stated the patient does need to be alert for safe P.O. intake. Additionally, the clinician stated the patient's diet consistency recommendations can fluctuate depending on alertness and safety. As oral holding an dysphagia is common is progressing Alzheimer's, the clinician does not suspect improvement. If s/s of suspected aspiration are displayed, a modified barium swallow would be appropriate to rule out silent aspiration. The recommendations were discussed with the patient's RN immediately following the evaluation. Dysphagia Evaluation Summary The patient required consistent verbal cueing and redirection for appropriate and safe levels of alertness throughout the evaluation. The patient's family members remained present and aided the clinician with appropriate alert levels from the patient. The patient demonstrated oropharyngeal dysphagia characterized by decreased lingual coordination, oral holding behaviors, prolonged mastication of solid consistencies, and multiple swallows per bolus. No s/s of suspected aspiration were demonstrated with straw drinks of thin liquid, teaspoons of puree, or small bites of a saltine cracker. Speech Short Term Goals Short Term Goals Short Term Goals 1. The patient, staff, and family members will follow safe swallowing strategies with 90% accuracy, independently. Speech Prison Goals Prison Goals 1. The patient will tolerate the least restrictive diet consistency without s/s of suspected aspiration. Speech-Plan Treatment Plan Speech Therapy Treatment Plan: Continue Plan of Care Treatment Duration: Feb 12, 2022 Frequency: Modified Program (IRF) Estimated Hrs Per Day: .5 hour per day Rehab Potential: Poor Safety Risks/Education Teaching Recipient: Patient, Family, Significant Other Teaching Methods: Discussion Response to Teaching: Reinforcement Needed Education Topics Provided: Results, Plan of Care, Safe Swallowing Strategies Time Speech Therapy Time In: 11:45 Speech Therapy Time Out: 12:15 Total Billed Time: 30 Billed Treatment Time 1, VINEET SIEGEL [facility] ST Jan 28, 2022 12:57
[2022-01-28] MEDS ORDERED: MAGNESIUM 1 GM/100 ML IVPB 100 ML IV NR (13:30)
[2022-01-28] MEDS: NS IV 1000 ML 1,000 ML IV SCH (14:12)
[2022-01-28] MEDS: POTASSIUM CL 10MEQ/50ML IVPB 50 ML IV SCH ×7 (14:13→20:32)
--- NOTE | 2022-01-28 14:37 | Therapy Group Daily Note ---
Therapy Daily Group Note Patient Education Topic Energy Cons Exercises LE Seated Exercise, UE Exercise Session Ratio (pt:therapist): 3:1 Goal of Session: Energy Conservation Tech., UE/LE Strengthing Goal Met for this Session: Yes Pt Benefit of Group: Contributions to Others, F/U Use of Strategies @Home, Increased Functional Safety, Increased Functional Strength, Improved Cognition, Recognition of Peers, Socialization Other/Notes Pt was wheeled to [facility] then used w/c for return trip to room. OT/PT group consisted of introductions (name, place living, favorite restaurant), s ocialization, B UE/LE seated exercises and educational topics of energy conservation/community access. Pt actively listened to peers and appropriately introduced self. Pt was able to complete B UE/LE seated exercises correctly with skilled instruction. Pt was able to demonstrate understanding of educational topics by giving own personal strategies and routines. After therapy, pt lying in bed with call light/phone in reach. All needs met in room. Start Time: 13:00 Stop Time: 14:00 Total Billed Treatment Time: 60 Total Billed Treatment Group-1 SIS GOMES PT Jan 28, 2022 14:37
[2022-01-28] MEDS: amLODIPine 5 MG (NORVASC) TAB PO SCH (15:27)
[2022-01-28] MEDS: SERTRALINE 100 MG (ZOLOFT) TAB PO SCH (15:27)
[2022-01-28 15:42] VITALS: BP 160/82
[2022-01-28 20:00] VITALS: BP 138/66
[2022-01-28] MEDS: TERAZOSIN 1 MG CAP (HYTRIN) PO SCH (21:15)
[2022-01-28] MEDS: PSEUDOEPHEDRINE HCL 30 MG (SUDAFED) TAB PO SCH (21:15)
[2022-01-28] MEDS: ALPRAZolam 0.5 MG (XANAX) TAB PO SCH (21:15)
[2022-01-28] MEDS: MIRABEGRON 25 MG TAB (MYRBETRIQ) PO SCH (21:15)
[2022-01-28] MEDS: PREGABALIN 25 MG (LYRICA) CAPSULE PO SCH (21:15)
[2022-01-28] MEDS: NIACIN ER (NIASPAN) 500 MG TAB PO SCH (21:16)
[2022-01-28] MEDS: CEFDINIR 300 MG (OMNICEF) CAP PO SCH (21:16)
[2022-01-29] MEDS: inSUlin ASPART (NovoLOG) 1 UNIT/0.01 ML (CHARGE PER UNIT) SC SCH ×4 (05:28→20:36)
--- NOTE | 2022-01-29 06:10 | PM&R Progress Note ---
Subjective HPI/CC On Admission Date Seen by Provider: Jan 29, 2022 Time Seen by Provider: 08:30 Subjective/Events-last exam 01/29/2022: Pt is doing pretty well Blood sugar was 173 last night and 111 today Doesn't eat much Oriented x2 Pain pill taken which helps Incontinent of loose stools so holding laxative Crushing meds help Review of Systems General: Fatigue, Malaise Musculoskeletal: leg pain Neurological: Confusion Objective Exam Vital Signs Vital Signs Date Time Temp Pulse Resp B/P (MAP) Pulse Ox O2 Delivery O2 Flow Rate FiO2 01/29/22 19:49 36.2 84 20 117/64 (81) 97 Nasal Cannula 4.00 Capillary Refill : General Appearance: No Apparent Distress, WD/WN, Chronically ill, Thin HEENT: PERRL/EOMI, Normal ENT Inspection, Pharynx Normal Neck: Full Range of Motion, Normal Inspection, Non Tender, Supple, Carotid Bruit Respiratory: Chest Non Tender, Lungs Clear, Normal Breath Sounds, No Accessory Muscle Use, No Respiratory Distress, Decreased Breath Sounds Cardiovascular: Regular Rate, Rhythm, No Edema, No Gallop, No JVD, No Murmur, Normal Peripheral Pulses Gastrointestinal: Normal Bowel Sounds, No Organomegaly, No Pulsatile Mass, Non Tender, Soft Back: Normal Inspection, No CVA Tenderness, No Vertebral Tenderness Extremity: Normal Capillary Refill, Normal Inspection, Normal Range of Motion, Non Tender, No Calf Tenderness, No Pedal Edema Neurologic/Psychiatric: Alert, russian language instructor II-XII Norm as Tested, Abnormal Gait, Depressed Affect, Disoriented, Motor Weakness (generalized but specifically right leg) Skin: Normal Color, Warm/Dry Lymphatic: No Adenopathy Results/Procedures Lab Laboratory Tests 01/29/22 05:35 Patient resulted labs reviewed. FIM Transfers Therapy Code Descriptions/Definitions Functional [place] Measure: 0=Not Assessed/NA 4=Minimal Assistance 1=Total Assistance 5=Supervision or Setup 2=Maximal Assistance 6=Modified [place] 3=Moderate Assistance 7=Complete IndependenceSCALE: Activities may be completed with or without assistive devices. 8-Qhvkaineuu-mdexjvt completes the activity by him/herself with no assistance from a helper. 5-Set-up or Clean-up Assistance-helper sets up or cleans up; patient completes activity. [place] assists only prior to or following the activity. 4-Supervision or Touching Assistance-helper provides verbal cues and/or touching/steadying and/or contact guard assistance as patient completes activity. Assistance may be provided throughout the activity or intermittently. 3-Partial/Moderate Assistance-helper does LESS THAN HALF the effort. [place] lifts, holds or supports trunk or limbs, but provides less than half the effort. 2-Substantial/Maximal Assistance-helper does MORE THAN HALF the effort. [place] lifts or holds trunk or limbs and provides more than half the effort. 4-Ofoytlayy-emibyr does ALL the effort. Patient does none of the effort to complete the activity. Or, the assistance of 2 or more helpers is required for the patient to complete the activity. If activity was not attempted, code reason: 7-Patient Refused. 9-Not Applicable-not attempted and the patient did not perform the activity before the current illness, exacerbation or injury. 10-Not Attempted due to Environmental Limitations-(lack of equipment, weather restraints, etc.). 88-Not Attempted due to Medical Conditions or Safety Concerns. Roll Left to Right (QC): 3 Sit to Lying (QC): 2 Sit to Stand (QC): 2 Chair/Bcj-ma-Mrlql Xfer(QC): 2 Car Transfer (QC): 2 Gait Training Does the Patient Walk?: Yes Walk 10 feet (QC): 2 Walk 50 ft with 2 Turns(QC): 88 Walk 150 ft (QC): 88 Walking 10ft/uneven surface-QC: 88 Gait Assistive Device: FWW Wheelchair Training Does the Pt Use a Wheelchair?: Yes Distance: 50 Wheel 50 ft with 2 turns (QC): 3 Wheel 150 ft (QC): 88 Type of Wheelchair: Manual Stair Training #of Steps: 0 1 Step (curb) (QC): 88 4 Steps (QC): 88 12 Steps (QC): 88 Balance Picking up an Object (QC): 88 ADL-Treatment Eating (QC): 2 (per clinical judgment) Oral Hygiene (QC): 2 Shower/Bathe Self (QC): 1 Upper Body Dressing (QC): 1 Lower Body Dressing (QC): 1 On/Off Footwear (QC): 1 Toileting Hygiene (QC): 1 Assessment/Plan Assessment and Plan Assess & Plan/Chief Complaint Assessment: Status post right hip fracture with post op complication of acute respiratory failure due to PNA requiring intubation Dementia TIA history Smoker Hypertension Hyperlipidemia Chronic constipation BPH New urinary incontinence Diabetes mellitus Rectal carcinoma s/p radiation only not tolerated well via [facility] Anemia s/p transfusions of 2 units of blood KATH on admit [place] cath in place Neuropathy Plan: PT OT Pain control Monitor closely 01/29/2022: Monitor hemoglobin Pain control Improve transfers and strengthening to help when he returns home on hospice (1) Closed right hip fracture Status: Acute (2) Diabetes mellitus Status: Chronic (3) Dementia Status: Chronic (4) Hypertension (5) BPH (benign prostatic hyperplasia) Status: Chronic (6) DVT prophylaxis Status: Acute (7) Acute kidney injury superimposed on chronic kidney disease (8) Primary hypertension (9) Mixed hyperlipidemia (10) Aortic regurgitation (11) Pulmonary hypertension (12) Smoker (13) Hyperlipidemia (14) Frailty LENNY CAVANAUGH DO Jan 29, 2022 06:10
--- NOTE | 2022-01-29 06:12 | Individualized Plan of Care ---
Individualized Plan of Care Rehab Nursing IPOC Order Admission Date Jan 28, 2022 at 09:50 Current Orders Orders Admission Order(Inpt,Obs,Sdc) (01/28/22 06:07) Vital Signs: Per Unit Policy ( 08,16,00 (01/28/22 06:07) Yrn Miramontes , (01/28/22 06:07) Sequential Compression Device (01/28/22 06:07) Real Estate Instructor-Inpt Rehab Con (01/28/22 06:07) Rehab Nursing Orders-Ipoc (01/28/22 06:07) Physical Therapy Rehab Orders (01/28/22 06:07) Occupational Therapy Rehab Ord (01/28/22 06:07) Speech Therapy Rehab Orders (01/28/22 06:07) Cbc With Automated Diff (01/29/22 06:00) Comprehensive Metabolic Panel (01/29/22 06:00) Precautions (Aru) (01/28/22 06:07) Weekly Weight WEEK (01/28/22 06:07) Rehab-Intensity Of Therapy (01/28/22 06:07) Initiate Admission Nursing Pro .admission (01/28/22 06:07) Alprazolam Tablet (Xanax Tablet) (01/28/22 06:15) Calcium Carbonate Chew Tablet (Antacid C (01/28/22 06:15) Diphenhydramine Tablet (Benadryl Tablet) (01/28/22 06:15) Docusate Sodium Capsule (Colace Capsule) (01/28/22 09:00) Docusate Sodium Capsule (Colace Capsule) (01/28/22 06:15) Bisacodyl Suppository (Dulcolax Supposit (01/28/22 06:15) Lactulose Oral Solution (Enulose Oral So (01/28/22 06:15) Na Phos/Na Biphos Enema (Fleet Enema Alonzo (01/28/22 06:15) Guaifenesin/Codeine Syrup (Robitussin Ac (01/28/22 06:15) Loperamide Tablet (Imodium Tablet) (01/28/22 06:15) Melatonin Tablet (Melatonin Tablet) (01/28/22 06:15) Polyethylene Glycol Powder Pkt (Miralax (01/28/22 09:00) Ondansetron Oral Dissolve Tab (Zofran (01/28/22 06:15) Senna S Tablet (Senokot S Tablet) (01/28/22 09:00) Acetaminophen Tablet/Caplet (Tylenol T (01/28/22 06:15) Initiate Admission Nursing Pro .admission (01/28/22 06:07) Admission Arrival Bed Request (01/28/22 09:50) Code/Resuscitation (01/28/22 10:45) Accucheck Achs ACHS (01/28/22 10:45) Alprazolam Tablet (Xanax Tablet) (01/28/22 21:00) Cholecalciferol Capsule/Tablet (Vitamin (01/29/22 09:00) Hydrocodone/Apap 5/325 Tablet (Lortab 5 (01/28/22 10:45) Loratadine Tablet (Claritin Tablet) (01/29/22 09:00) Losartan Tablet (Cozaar Tablet) (01/29/22 09:00) Mirabegron Tab (Myrbetriq Tablet) (01/28/22 21:00) Niacin Er Tablet (Niaspan Tablet) (01/28/22 21:00) Insulin Aspart (Novolog) (Novolog (Charg (01/28/22 11:00) Pantoprazole Tablet (Protonix Tablet) (01/29/22 09:00) Pregabalin Capsule (Lyrica Capsule) (01/28/22 21:00) Pseudoephedrine Tablet (Sudafed Tablet) (01/28/22 21:00) Sertraline Tablet (Zoloft Tablet) (01/28/22 15:00) Tamsulosin Capsule (Flomax Capsule) (01/29/22 09:00) Terazosin Capsule (Hytrin Capsule) (01/28/22 21:00) Amlodipine Tablet (Norvasc Tablet) (01/28/22 15:00) Ezetimibe Tablet (Zetia Tablet) (01/29/22 09:00) Insulin Determir (Per Unit) (Levemir (Pe (01/28/22 21:00) Tadalafil Tablet (Non-Form) (Tadalafil T (01/29/22 09:00) Cefdinir Capsule (Omnicef Capsule) (01/28/22 21:00) Iv Convert To Heplock (Order) (01/28/22 10:45) Oxycodone Immediate Rel Tablet (Oxyir Ta (01/28/22 10:45) Hydrocodone/Apap 5/325 Tablet (Lortab 5 (01/28/22 10:45) Patient Visit (01/28/22 ) Dysphagia Evaluation Std (01/28/22 ) Dysphagia Therapy (01/28/22 ) Potassium Cl 10meq/50ml Ivpb (Kcl 10 Meq (01/28/22 13:15) Magnesium 1 Gm/100 Ml Ivpb (Magnesium Weaver (01/28/22 13:30) Ns Iv 1000 Ml (Sodium Chloride 0.9%) (01/28/22 13:15) Dressing Order (Intervention) Q48H (01/28/22 13:35) Patient Visit (01/28/22 ) Pt Eval Moderate Complexity (01/28/22 ) Functional Activities, Ea 15 (01/28/22 ) Gait Training, Ea 15 Min (01/28/22 ) Exercise Therap, Ea 15 Min (01/28/22 ) Wheelchair Mgmt/Propulsn 15min (01/28/22 ) Glucerna (01/28/22 14:27) Dys2 Mechanically Altered (01/28/22 Lunch) Patient Visit (01/28/22 ) Therapeutic, Group (01/28/22 ) Potassium Cl 10meq/50ml Ivpb (Kcl 10 Meq (01/29/22 07:15) Oxygen Delivery Set Up (01/29/22 07:15) Patient Visit (01/29/22 ) Exercise Therap, Ea 15 Min (01/29/22 ) Functional Activities, Ea 15 (01/29/22 ) Patient Visit (01/29/22 ) Dysphagia Therapy (01/29/22 ) Speech Sound Lang Comp (01/29/22 ) Treat. Speech/Lang/Voice (01/29/22 ) Rehab Nursing Orders: Ongoing Assess. of Cognitive Status, Ongoing Assess. of Function Status, Bladder Management, Bladder Scan, Bladder Training, Bowel Management, Bowel Training, Disease Management & Educaiton, DVT Prophylaxis, Fall Prevention, Fluid/Electrolyte/Nutrition Mgmt, Infection Prevention, Medication Management & Education, Management of Risks & Complications, Management of Skin Intergrity, Nutrition Management, Pain Management, Patient/Family Support, Safety Management, Weight Bearing Precaution, Wound Management Intensity of Therapy to be met Patient to be seen: Min.3h per day/5 of 7d PT IPOC Problem List: Activity Tolerance, Functional Strength, Safety, Balance, Gait, Transfer, Bed Mobility, ROM Treatment Plan: Continue Plan of Care Bed Mobility, Education, Functional Activity Edmund, Functional Strength, Group Therapy, Gait, Safety, Therapeutic Exercise, Transfers Treatment Duration: Mar 07, 2022 Frequency: At least 5 of 7 days/Wk (IRF) Estimated Hrs Per Day: 1.5 hours per day OT IPOC Problems: Decreased Activ Tolerance, Decreased Safety Aware, Decreased UE Strength, Dependent Transfers, Impaired Bed Mobility, Impaired Cognition, Impaired Coordination, Impaired Funct Balance, Impaired Self-Care Skills, Restricted Funct UE ROM OT Treatment, Training and Edu: Yes Plan of Care: ADL Retraining, Caregiver Training, Cognitive Retraining, Concurrent Therapy, Functional Mobility, Group Exercise/Act as Ind, UE Funct Exercise/Act, W/C Management Training Treatment Duration: Feb 25, 2022 Frequency: At least 5 of 7 days/Wk (IRF) Estimated Hrs Per Day: 1.5 hours per day (75-90 min/day) ST IPOC Speech Therapy Treatment Plan: Continue Plan of Care Treatment Duration: Feb 12, 2022 Frequency: Modified Program (IRF) Estimated Hrs Per Day: .5 hour per day Real Estate Instructor/Case Mgmt Real Estate Instructor/Case Managemen: Discharge Planning Dietitian/Game Designer/Creative Director Dietitian/Game Designer/Creative Director to monitor nutritional status and make changes and/or recommendations as needed and work with speech pathology on dietary upgrades as the occur. Physician IPOC Medical Issues being managed closely and that require the 24 hour availability of a physician: Recent hip fracture with dementia and rectal carcinoma with high risk for delirium and issues with anemia postoperatively status post transfusions and will be high risk for decompensation and remains DO NOT RESUSCITATE Medical Issues: Bowel/Bladder Function, DVT Prophylaxis, Falls Precautions, Fluid/Electrolyte/Nutrition Balance, Infection Protection, Pain Management, Swallowing Precautions, Weight Bearing Precautions, Wound Care Brief Synthesis of Preadmission Screen, Post-Admission Evaluation, and Therapy Evaluations: PT and OT will focus on regaining function in order to decrease care burden for once he goes home on hospice with the use of assistive devices and improve overall dependence of ADLs Medical Prognosis: Fair Anticipated Length of Stay: 7 days LENNY CAVANAUGH DO Jan 29, 2022 06:12
[2022-01-29 06:15] LABS: BASOPHILS # (AUTO) 0.1 10^3/uL (0.0-0.1); BASOPHILS % (AUTO) 1 % (0-10); EOSINOPHILS # (AUTO) 0.2 10^3/uL (0.0-0.3); EOSINOPHILS % (AUTO) 2 % (0-10); HEMATOCRIT 23 % (40-54); HEMOGLOBIN 7.5 g/dL (13.3-17.7); LYMPHOCYTES # (AUTO) 0.9 10^3/uL (1.0-4.0); LYMPHOCYTES % (AUTO) 10 % (12-44); MEAN CORPUSCULAR HEMOGLOBIN 29 pg (25-34); MEAN CORPUSCULAR HGB CONC 33 g/dL (32-36); MEAN CORPUSCULAR VOLUME 89 fL (80-99); MEAN PLATELET VOLUME 9.9 fL (9.0-12.2); MONOCYTES % (AUTO) 11 % (0-12); NEUTROPHILS # (AUTO) 6.5 10^3/uL (1.8-7.8); NEUTROPHILS % (AUTO) 74 % (42-75); PLATELET COUNT 315 10^3/uL (130-400); WHITE BLOOD COUNT 8.7 10^3/uL (4.3-11.0)
[2022-01-29 06:27] LABS: POTASSIUM 3.3 MMOL/L (3.6-5.0)
[2022-01-29 06:28] LABS: CALCIUM 9.2 MG/DL (8.5-10.1)
[2022-01-29 06:29] LABS: TOTAL PROTEIN 5.8 GM/DL (6.4-8.2)
[2022-01-29 06:33] LABS: CREATININE SERUM 1.15 MG/DL (0.60-1.30)
[2022-01-29 07:45] VITALS: BP 168/72
[2022-01-29] MEDS: PSEUDOEPHEDRINE HCL 30 MG (SUDAFED) TAB PO SCH ×2 (08:25→20:34)
[2022-01-29] MEDS: LORATADINE (CLARITIN) 10 MG TAB PO SCH (08:25)
[2022-01-29] MEDS: VITAMIN D3 25 MCG (1,000 UNITS) TABLET PO SCH (08:26)
[2022-01-29] MEDS: PREGABALIN 25 MG (LYRICA) CAPSULE PO SCH ×2 (08:26→20:35)
[2022-01-29] MEDS: eZETimibe 10 MG (ZETIA) TABLET PO SCH (08:26)
[2022-01-29] MEDS: CEFDINIR 300 MG (OMNICEF) CAP PO SCH ×2 (08:26→20:35)
[2022-01-29] MEDS: TAMSULOSIN 0.4 MG (FLOMAX) CAP PO SCH (08:26)
[2022-01-29] MEDS: LOSARTAN 100 MG (COZAAR) TABLET PO SCH (08:27)
[2022-01-29] MEDS: PANTOPRAZOLE 20 MG TABLET (PROTONIX) PO SCH (08:27)
[2022-01-29] MEDS: POTASSIUM CL 10MEQ/50ML IVPB 50 ML IV SCH ×6 (08:31→15:05)
[2022-01-29] MEDS: NS IV 1000 ML 1,000 ML IV SCH (08:43)
--- NOTE | 2022-01-29 09:18 | Physical Therapy Daily Note ---
PT Daily Note-Current Subjective Patient lying supine in bed upon PT arrival, agreeable to treatment. Patient rates pain at 6/10 in his right hip. Co-treat with PT for part of treatment ([id number]) secondary to impaired mobility, high fall risk, poor cognition, and need of 2 skilled clinicians to progress indep and safety with adls and functional mobility Mental Status Patient Orientation: Person Attachments: Oxygen, [place] Catheter, IV Transfers SCALE: Activities may be completed with or without assistive devices. 2-Wjlevrqrqn-bpajqlu completes the activity by him/herself with no assistance from a helper. 5-Set-up or Clean-up Assistance-helper sets up or cleans up; patient completes activity. [place] assists only prior to or following the activity. 4-Supervision or Touching Assistance-helper provides verbal cues and/or touching/steadying and/or contact guard assistance as patient completes activity. Assistance may be provided throughout the activity or intermittently. 3-Partial/Moderate Assistance-helper does LESS THAN HALF the effort. [place] lifts, holds or supports trunk or limbs, but provides less than half the effort. 2-Substantial/Maximal Assistance-helper does MORE THAN HALF the effort. [place] lifts or holds trunk or limbs and provides more than half the effort. 8-Oafjaygye-krpbir does ALL the effort. Patient does none of the effort to complete the activity. Or, the assistance of 2 or more helpers is required for the patient to complete the activity. If activity was not attempted, code reason: 7-Patient Refused. 9-Not Applicable-not attempted and the patient did not perform the activity before the current illness, exacerbation or injury. 10-Not Attempted due to Environmental Limitations-(lack of equipment, weather restraints, etc.). 88-Not Attempted due to Medical Conditions or Safety Concerns. Roll Left & Right (QC): 3 Sit to Lying (QC): 2 Lying to Sitting/Side of Bed(Q: 2 Sit to Stand (QC): 2 Chair/Vbq-cc-Dfxaj Xfer(QC): 2 Toilet Transfer (QC): 2 Weight Bearing Right Lower Extremity: Right Weight Bearing/Tolerated Left Lower Extremity: Left Full Weight Bearing Gait Training Does the Patient Walk?: Yes Distance: 5 Walk 10 feet (QC): 88 Walk 50 ft with 2 Turns(QC): 88 Walk 150 ft (QC): 88 Walking 10ft/uneven surface-QC: 88 Gait Persons Needed: 2 Gait Assistive Device: FWW Exercises Seated Therapy Exercises: Ankle pumps, Long arc quads, Hamstring Curls Seated Reps: 20 Assessment Current Status: Poor Progress Patient lying supine in bed upon PT arrival, agreeable to treatment. Rates pain in right hip at 6/10. Patient co-treated with OT during portion of the visit as the patient requires significant physical and cognitive assistance for functional activity. OT treated the patient for functional activities including dressing, progression of daily activities and UE strengthening, while PT foc used on sitting/standing balance, transfers and LE strengthening. Patient incontinent upon PT arrival, requires max A for bed mobility and total assistance from nursing to clean. OT arrived at ~ 8:15 and co-treated with PT until 9:15. Patient performed bed mobility, transfers to/from w/c and BSC, static standing balance and LE therapeutic exercises. Patient in w/c post treatment with all needs met, nursing notified, call light in reach. PT Information Receptionist Goals Group Home Goals PT Group Home Goals Time Frame: Feb 14, 2022 Roll Left & Right (QC): 4 Sit to Lying (QC): 4 Lying-Sitting on Side/Bed(QC): 4 Sit to Stand (QC): 4 Chair/Exz-wv-Zjvwm Xfer(QC): 4 Toilet Transfer (QC): 4 Car Transfer (QC): 4 Does the Patient Walk: Yes Walk 10 feet (QC): 4 Walk 50ft with 2 Turns (QC): 4 Walk 150 ft (QC): 3 Walking 10ft on Uneven Surface: 4 1 Step (curb) (QC): 2 4 Steps (QC): 2 12 Steps (QC): 88 Picking up an Object (QC): 4 Does the Pt use WC or Scooter?: Yes Wheel 50 feet with 2 turns (QC: 5 Type: Manual Wheel 150 feet: 5 Type: Manual PT Plan Treatment/Plan Treatment Plan: Continue Plan of Care Treatment Plan: Bed Mobility, Education, Functional Activity Edmund, Functional Strength, Group Therapy, Gait, Safety, Therapeutic Exercise, Transfers Treatment Duration: Mar 07, 2022 Frequency: At least 5 of 7 days/Wk (IRF) Estimated Hrs Per Day: 1.5 hours per day Patient and/or Family Agrees t: Yes Safety Risks/Education Patient Education: Transfer Techniques, W/C Management Teaching Recipient: Patient Teaching Methods: Demonstration, Discussion Response to Teaching: Reinforcement Needed Time/GCodes Time In: 800 Time Out: 915 Total Billed Treatment Time: 75 Total Billed Treatment Visit, EX (15), FA (60) (Co-treat with OT [phone]) SIS GOMES PT Jan 29, 2022 09:18
--- NOTE | 2022-01-29 09:20 | Occupational Ther Daily Note ---
OT Current Status-Daily Note Subjective Pt denies pain, slightly more alert this morning. "I'm just trying to remember where I parked my car this morning." Co-treat with PT for part of treatment () secondary to impaired mobility, high fall risk, poor cognition, and need of 2 skilled clinicians to progress indep and safety with adls and functional mobility OT notified ENGINEERING TECHNOLOGIST that pt will need a chair alarm. Appearance Pt left sitting in w/c, all needs within reach at OT departure. Mental Status/Objective Patient Orientation: Person, Confused ADL-Treatment Therapy Code Descriptions/Definitions Functional [place] Measure: 0=Not Assessed/NA 4=Minimal Assistance 1=Total Assistance 5=Supervision or Setup 2=Maximal Assistance 6=Modified [place] 3=Moderate Assistance 7=Complete IndependenceSCALE: Activities may be completed with or without assistive devices. 7-Bctwuydrhe-gwgnpml completes the activity by him/herself with no assistance from a helper. 5-Set-up or Clean-up Assistance-helper sets up or cleans up; patient completes activity. [place] assists only prior to or following the activity. 4-Supervision or Touching Assistance-helper provides verbal cues and/or touching/steadying and/or contact guard assistance as patient completes activity. Assistance may be provided throughout the activity or intermittently. 3-Partial/Moderate Assistance-helper does LESS THAN HALF the effort. [place] lifts, holds or supports trunk or limbs, but provides less than half the effort. 2-Substantial/Maximal Assistance-helper does MORE THAN HALF the effort. [place] lifts or holds trunk or limbs and provides more than half the effort. 9-Yrgxqtvqz-azonwg does ALL the effort. Patient does none of the effort to complete the activity. Or, the assistance of 2 or more helpers is required for the patient to complete the activity. If activity was not attempted, code reason: 7-Patient Refused. 9-Not Applicable-not attempted and the patient did not perform the activity before the current illness, exacerbation or injury. 10-Not Attempted due to Environmental Limitations-(lack of equipment, weather restraints, etc.). 88-Not Attempted due to Medical Conditions or Safety Concerns. Upper Body Dressing (QC): 3 Lower Body Dressing (QC): 1 On/Off Footwear: 1 Toilet Transfer (QC): 2 Pt more alert this date, but still fatigues very quickly. LB dressing performed at bed level. Dependent to don brief/shorts over feet. Max a to roll R/L, dependent for clothing management. Mod-max a to sit EOB. Significant time and cues required for all transfers as pt requires simple step by step sequencing cues. Extra time, tactile cues and min a to pull shirt down around torso. Pt is easily distracted and requires occasional cues to redirect back to task. Pt able to comb hair and wash face with visual cues. Other Treatment Majority of treatment spent on transfer training to different surfaces (commode, bed, w/c, etc). Sit<>stand: mod-max a. Poor eccentric control, needing cues/assist for safety. Significant time for all pivots as pt requires step by step cues for 100% of transfer. Pt often requires visual cues on where to place feet and on upright posture throughout standing. Shuffle type gait sequence. Intermittent assist on walker management and on shifting weight anteriorly and onto RLE. While seated, Pt completed UE AROM exercises with goal to improve ROM, strength, and endurance needed for functional tasks. Pt is able to complete all joints to full range but often needs tactile cues to achieve. AAROM after ~6-7 reps secondary to fatigue. 1x10 all planes. Education OT Patient Education: Correct positioning, Energy conservation, Exercise program, Modified ADL techniques, Progress toward Goal/Update tx plan, Purpose of tx/functional activities, Reviewed precautions, Rehab process, Safety issues, Transfer techniques, W/C management Teaching Recipient: Patient Teaching Methods: Demonstration, Discussion Response to Teaching: Verbalize Understanding, Reinforcement Needed OT Short Term Goals Short Term Goals Time Frame: Feb 11, 2022 Eatin Oral hygiene: 3 Toileting hygiene: 3 Shower/bathe self: 2 Upper body dressin Lower body dressin Putting on/taking off footwear: 2 OT Head Strength And Conditioning Coach Goals Senior Care Goals Time Frame: Feb 25, 2022 Eating (QC): 5 Oral Hygiene (QC): 5 Toileting Hygiene (QC): 4 Shower/Bathe Self (QC): 3 Upper Body Dressing (QC): 4 Lower Body Dressing (QC): 3 On/Off Footwear (QC): 2 1=Demonstrate adherence to instructed precautions during ADL tasks. 2=Patient will verbalize/demonstrate understanding of assistive devices/modifications for ADL. 3=Patient will improve strength/tolerance for activity to enable patient to perform ADL's. OT Education/Plan Problem List/Assessment Assessment: Decreased Activ Tolerance, Decreased Safety Aware, Decreased UE Strength, Dependent Transfers, Impaired Bed Mobility, Impaired Cognition, Impaired Coordination, Impaired Funct Balance, Impaired I ADL's, Impaired Self- Care Skills Discharge Recommendations Plan/Recommendations: Continue POC Therapy Discharge Recommendati: Post Acute OT Treatment Plan/Plan of Care Treatment,Training & Education: Yes Patient would benefit from OT for education, treatment and training to promote independence in ADL's, mobility, safety and/or upper extremity function for ADL's. Plan of Care: ADL Retraining, Caregiver Training, Cognitive Retraining, Concurrent Therapy, Functional Mobility, Group Exercise/Act as Ind, UE Funct Exercise/Act, W/C Management Training Treatment Duration: Feb 25, 2022 Frequency: At least 5 of 7 days/Wk (IRF) Estimated Hrs Per Day: 1.5 hours per day (75-90 min/day) Rehab Potential: Poor Time/GCodes Start Time: 08:15 Stop Time: 09:30 Total Time Billed (hr/min): 75 Billed Treatment Time 1 visit ADL x2 (25 min) FA x2 (35 min) EX (15 min) Kayla Desai OT Jan 29, 2022 09:20
[2022-01-29] MEDS: DOCUSATE SODIUM 100 MG (COLACE) CAP PO SCH ×2 (09:44→19:49)
[2022-01-29] MEDS: polyethylene glycoL POWDER 17 GM (MIRALAX) PACK PO SCH ×2 (09:44→19:49)
[2022-01-29] MEDS: SENNA W/DOCUSATE (SENOKOT S) TABLET PO SCH ×2 (09:44→19:49)
[2022-01-29] MEDS: tadalafiL 5 MG TABLET (NON-FORMULARY) PO SCH (09:54)
--- NOTE | 2022-01-29 12:25 | ST Cognitive Linguistic Eval ---
Speech Evaluation-General Medical Diagnosis R Hip Fracture Onset Date: Jan 21, 2022 Therapy Diagnosis Therapy Diagnosis: Impaired Neurocognitive Skills Precautions Precautions: Fall, Pressure Ulcer, Aspiration, Hip Precautions/Isolations: Aspiration, Fall Prevention, Standard Precautions, Pressure Ulcer Referral Referring Physician: Dr. Saldana Reason for Referral: Evaluation/Treatment Medical History Pertinent Medical History: CAD, Dementia, HTN, Neuropathy Current History The patient is a 76 year-old male with a past medical history significant for CAD, dementia, HTN, and neuropathy, who presents to ARU following a right hip fracture repair. Reviewed History: Yes Social History Current Living Status: Spouse Speech PLF-Current Status Prior Level of Function The patient's provided prior level of function information to the clinician. The patient's stated the patient has displayed a cognitive decline recently. Per patient's , the patient displays more consistent periods of confusion (getting ready for prior work experiences, discussing a home they lived in prior, etc.). The patient's stated the patient does not verbally communicate as often due anomia. Subjective The patient was seated upright in his wheelchair, sleeping upon entrance to his room by the clinician. With maximum verbal prompting, the patient would wake intermittently prior to returning to sleep. The patient is agreeable to participation in the cognitive linguistic assessment. Per patient's , the patient sleeps from 9am to 5pm, remaining awake throughout the night. Language Eval: Auditory Comprehends Simple Yes/No Ques: Functional Indent/Objects Multiple Pined[place]: Functional Ident/Pics in Multiple [place]: Functional Follows 1-Step Commands: Mild (Consistent verbal prompting and repetition is required for accuracy.) Language Eval: Verbal Language Completes Spontaneous Greeting: Functional Produces Auto, Serial Info: Functional Word Finding: Moderate Requests Basic Needs: Moderate States Basic Personal Info: Moderate Objective Cognitive Domain Attention: Moderate Memory: Moderate Problem Solving: Moderate Objective Formal/Standardized Tests [facility] Mental Status Exam (UMS) Results The SLUMS was attempted on this date, however, not completed due to fatigue, confusion, and the necessity for consistent verbal prompting. The patient was able to state the accurate year and location. The patient was unable to complete simple addition or subtraction, generative naming, or delayed recall with any level of accuracy. Oral Motor/Speech Production The patient does not display dysarthria or apraxia of speech. The patient's intelligibility is reduced secondary to decreased articulatory effort ("mumbling"). Impression The patient demonstrates significant confusion which may be negatively impacted by his high level of fatigue. The patient's cognitive status is consistent with the patient's 's reports of baseline and known Alzheimer's dementia diagnosis. The clinician will continue to attempt skilled speech pathology services, however, retention of novel information and skills is not expected. Speech Patient Assess Expression of Ideas/Wants: Frequently (2) Understanding Verbal Content: Sometimes Understands(2) Brief Interview-Mental Status: Yes Repetition of Three Words: None (0) Temporal Orientation: Year: Correct (3) Temporal Orientation: Month: Missed by 6 days-1 month (1) Temporal Orientation: Day: Incorrect or No Answer(0) Recall : Wear to say "Sock": No, could not recall (0) Recall : Color: No, could not recall (0) Recall : Bed: No, could not recall (0) Memory/Recall Ability: That he or she is in a hsp/hsp unit Speech Short Term Goals Short Term Goals Short Term Goals 1. The patient, staff, and family members will follow safe swallowing strategies with 90% accuracy, independently. 2. The patient will respond appropriately to simple yes and no questions with 75% accuracy and mild clinician verbal cueing. Speech Bilingual Sales Assistant Goals Residential Goals 1. The patient will tolerate the least restrictive diet consistency without s/s of suspected aspiration. 2. The patient will demonstrate an improvement in cognitive linguistic skills for safe discharge to the least restrictive environment. Speech-Plan Treatment Plan Speech Therapy Treatment Plan: Continue Plan of Care Treatment Duration: Feb 12, 2022 Frequency: Modified Program (IRF) Estimated Hrs Per Day: .5 hour per day Rehab Potential: Poor Safety Risks/Education Teaching Recipient: Patient, Significant Other Teaching Methods: Discussion Response to Teaching: Verbalize Understanding Education Topics Provided: Results, Recommendations, Plan of Care Time Speech Therapy Time In: 11:00 Speech Therapy Time Out: 11:22 Total Billed Time: 22 Billed Treatment Time 1, BELINDA KOCH [facility] Jan 29, 2022 12:25
--- NOTE | 2022-01-29 12:39 | Speech Therapy Daily Note ---
Speech Daily Progress Note Subjective Date Seen by Provider: Jan 29, 2022 Time Seen by Provider: 11:22 The patient was seated upright in his wheelchair, sleeping upon entrance to his room by the clinician. With maximum verbal prompting, the patient intermittently displayed appropriate levels of alertness for participation. The patient was agreeable to participation in the dysphagia treatment session. Objective The patient placed a bright pink sign in the patient's room with safe swallowing recommendations and strategies. The safe swallowing strategies were reviewed with the patient, however, retention of the strategies were not demonstrated following a five minute delayed recall attempt. The patient independently sipped on thin liquid via straw. Overt s/s of suspected aspiration were not demonstrated. The clinician encouraged additional P.O. intake of thin liquids to continue ongoing assessment of the patient's swallowing function, however, the patient politely declined. The clinician will continue to monitor the patient's swallowing function with prolonged P.O. intake, as the limited amount consumed today does not allow for appropriate evaluation. Assessment Assessment Current Status: Poor Progress Treatment Plan Continue Plan of Care Speech Short Term Goals Short Term Goals Short Term Goals 1. The patient, staff, and family members will follow safe swallowing strategies with 90% accuracy, independently. 2. The patient will respond appropriately to simple yes and no questions with 75% accuracy and mild clinician verbal cueing. Speech Machine Buffer Goals Penitentiary Goals 1. The patient will tolerate the least restrictive diet consistency without s/s of suspected aspiration. 2. The patient will demonstrate an improvement in cognitive linguistic skills for safe discharge to the least restrictive environment. Speech-Plan Treatment Plan Speech Therapy Treatment Plan: Continue Plan of Care Treatment Duration: Feb 12, 2022 Frequency: Modified Program (IRF) Estimated Hrs Per Day: .5 hour per day Rehab Potential: Poor Safety Risks/Education Teaching Recipient: Patient Teaching Methods: Handout, Discussion Response to Teaching: Reinforcement Needed Education Topics Provided: Safe Swallowing Strategies Time Speech Therapy Time In: 11:22 Speech Therapy Time Out: 11:30 Total Billed Time: 8 Billed Treatment Time BELINDA Renee ELIZABEJENNY GRAY Jan 29, 2022 12:39
[2022-01-29 16:08] VITALS: BP 153/80
[2022-01-29] MEDS: HYDROcodone/APAP 5 MG/325 MG (LORTAB) TAB PO PRN (16:09)
[2022-01-29] MEDS: SERTRALINE 100 MG (ZOLOFT) TAB PO SCH (16:10)
[2022-01-29] MEDS: amLODIPine 5 MG (NORVASC) TAB PO SCH (16:10)
[2022-01-29 19:49] VITALS: BP 117/64
[2022-01-29] MEDS: ALPRAZolam 0.5 MG (XANAX) TAB PO SCH (20:34)
[2022-01-29] MEDS: NIACIN ER (NIASPAN) 500 MG TAB PO SCH (20:35)
[2022-01-29] MEDS: MIRABEGRON 25 MG TAB (MYRBETRIQ) PO SCH (20:35)
[2022-01-29] MEDS: TERAZOSIN 1 MG CAP (HYTRIN) PO SCH (20:35)
--- NOTE | 2022-01-30 05:56 | PM&R Progress Note ---
Subjective HPI/CC On Admission Date Seen by Provider: Jan 30, 2022 Time Seen by Provider: 10:30 Subjective/Events-last exam 01/30/2022: Patient doing much better Sitting up in chair today Pain is improved No major concerns We will check labs tomorrow 01/29/2022: Pt is doing pretty well Blood sugar was 173 last night and 111 today Doesn't eat much Oriented x2 Pain pill taken which helps Incontinent of loose stools so holding laxative Crushing meds help Review of Systems General: Fatigue, Malaise Musculoskeletal: leg pain Objective Exam Vital Signs Vital Signs Date Time Temp Pulse Resp B/P (MAP) Pulse Ox O2 Delivery O2 Flow Rate FiO2 01/30/22 21:05 Nasal Cannula 3.00 01/30/22 19:57 37.2 98 16 147/74 (98) 95 Capillary Refill : General Appearance: No Apparent Distress, WD/WN, Chronically ill, Thin HEENT: PERRL/EOMI, Normal ENT Inspection, Pharynx Normal Neck: Full Range of Motion, Normal Inspection, Non Tender, Supple, Carotid Bruit Respiratory: Chest Non Tender, Lungs Clear, Normal Breath Sounds, No Accessory Muscle Use, No Respiratory Distress, Decreased Breath Sounds Cardiovascular: Regular Rate, Rhythm, No Edema, No Gallop, No JVD, No Murmur, Normal Peripheral Pulses Gastrointestinal: Normal Bowel Sounds, No Organomegaly, No Pulsatile Mass, Non Tender, Soft Back: Normal Inspection, No CVA Tenderness, No Vertebral Tenderness Extremity: Normal Capillary Refill, Normal Inspection, Normal Range of Motion, Non Tender, No Calf Tenderness, No Pedal Edema Neurologic/Psychiatric: Alert, service administrator II-XII Norm as Tested, Abnormal Gait, Depressed Affect, Disoriented, Motor Weakness (generalized but specifically right leg) Skin: Normal Color, Warm/Dry Lymphatic: No Adenopathy Results/Procedures Lab Patient resulted labs reviewed. FIM Transfers Therapy Code Descriptions/Definitions Functional [place] Measure: 0=Not Assessed/NA 4=Minimal Assistance 1=Total Assistance 5=Supervision or Setup 2=Maximal Assistance 6=Modified [place] 3=Moderate Assistance 7=Complete IndependenceSCALE: Activities may be completed with or without assistive devices. 2-Tohimsuoua-pdczmbg completes the activity by him/herself with no assistance from a helper. 5-Set-up or Clean-up Assistance-helper sets up or cleans up; patient completes activity. [place] assists only prior to or following the activity. 4-Supervision or Touching Assistance-helper provides verbal cues and/or touching/steadying and/or contact guard assistance as patient completes activity. Assistance may be provided throughout the activity or intermittently. 3-Partial/Moderate Assistance-helper does LESS THAN HALF the effort. [place] lifts, holds or supports trunk or limbs, but provides less than half the effort. 2-Substantial/Maximal Assistance-helper does MORE THAN HALF the effort. [place] lifts or holds trunk or limbs and provides more than half the effort. 4-Eorsotqdv-kxxida does ALL the effort. Patient does none of the effort to complete the activity. Or, the assistance of 2 or more helpers is required for the patient to complete the activity. If activity was not attempted, code reason: 7-Patient Refused. 9-Not Applicable-not attempted and the patient did not perform the activity before the current illness, exacerbation or injury. 10-Not Attempted due to Environmental Limitations-(lack of equipment, weather restraints, etc.). 88-Not Attempted due to Medical Conditions or Safety Concerns. Roll Left to Right (QC): 3 Sit to Lying (QC): 2 Sit to Stand (QC): 2 Chair/Rko-vn-Shlxq Xfer(QC): 2 Car Transfer (QC): 2 Gait Training Does the Patient Walk?: Yes Distance: 5 Walk 10 feet (QC): 88 Walk 50 ft with 2 Turns(QC): 88 Walk 150 ft (QC): 88 Walking 10ft/uneven surface-QC: 88 Gait Persons Needed: 2 Gait Assistive Device: FWW Wheelchair Training Does the Pt Use a Wheelchair?: Yes Distance: 50 Wheel 50 ft with 2 turns (QC): 3 Wheel 150 ft (QC): 88 Type of Wheelchair: Manual Stair Training #of Steps: 0 1 Step (curb) (QC): 88 4 Steps (QC): 88 12 Steps (QC): 88 Balance Picking up an Object (QC): 88 ADL-Treatment Eating (QC): 2 (per clinical judgment) Oral Hygiene (QC): 2 Shower/Bathe Self (QC): 1 Upper Body Dressing (QC): 3 Lower Body Dressing (QC): 1 On/Off Footwear (QC): 1 Toileting Hygiene (QC): 1 Toilet Transfer (QC): 2 Assessment/Plan Assessment and Plan Assess & Plan/Chief Complaint Assessment: Status post right hip fracture with post op complication of acute respiratory failure due to PNA requiring intubation Dementia TIA history Smoker Hypertension Hyperlipidemia Chronic constipation BPH New urinary incontinence Diabetes mellitus Rectal carcinoma s/p radiation only not tolerated well via [facility] Anemia s/p transfusions of 2 units of blood KATH on admit [place] cath in place Neuropathy Plan: PT OT Pain control Monitor closely 01/29/2022: Monitor hemoglobin Pain control Improve transfers and strengthening to help when he returns home on hospice 01/30/2022: Much improved Continue aggressive rehab in order to return back home to hospice (1) Closed right hip fracture Status: Acute (2) Diabetes mellitus Status: Chronic (3) Dementia Status: Chronic (4) Hypertension (5) BPH (benign prostatic hyperplasia) Status: Chronic (6) DVT prophylaxis Status: Acute (7) Acute kidney injury superimposed on chronic kidney disease (8) Primary hypertension (9) Mixed hyperlipidemia (10) Aortic regurgitation (11) Pulmonary hypertension (12) Smoker (13) Hyperlipidemia (14) Frailty LENNY CAVANAUGH DO Jan 30, 2022 05:56
[2022-01-30] MEDS: inSUlin ASPART (NovoLOG) 1 UNIT/0.01 ML (CHARGE PER UNIT) SC SCH ×4 (06:10→21:50)
[2022-01-30 07:39] VITALS: BP 130/75
[2022-01-30] MEDS: LORATADINE (CLARITIN) 10 MG TAB PO SCH (09:09)
[2022-01-30] MEDS: TAMSULOSIN 0.4 MG (FLOMAX) CAP PO SCH (09:09)
[2022-01-30] MEDS: PREGABALIN 25 MG (LYRICA) CAPSULE PO SCH ×2 (09:09→21:49)
[2022-01-30] MEDS: eZETimibe 10 MG (ZETIA) TABLET PO SCH (09:09)
[2022-01-30] MEDS: PANTOPRAZOLE 20 MG TABLET (PROTONIX) PO SCH (09:09)
[2022-01-30] MEDS: VITAMIN D3 25 MCG (1,000 UNITS) TABLET PO SCH (09:09)
[2022-01-30] MEDS: CEFDINIR 300 MG (OMNICEF) CAP PO SCH ×2 (09:09→21:49)
[2022-01-30] MEDS: LOSARTAN 100 MG (COZAAR) TABLET PO SCH (09:14)
--- NOTE | 2022-01-30 09:16 | Physical Therapy Daily Note ---
PT Daily Note-Current Subjective Patient sitting upright in bed upon PT arrival, finishing breakfast, agreeable to treatment. Rates pain at 0/10 sans activity. Mental Status Patient Orientation: Person Transfers SCALE: Activities may be completed with or without assistive devices. 0-Laexpryugl-yanqhyi completes the activity by him/herself with no assistance from a helper. 5-Set-up or Clean-up Assistance-helper sets up or cleans up; patient completes activity. [place] assists only prior to or following the activity. 4-Supervision or Touching Assistance-helper provides verbal cues and/or touching/steadying and/or contact guard assistance as patient completes activity. Assistance may be provided throughout the activity or intermittently. 3-Partial/Moderate Assistance-helper does LESS THAN HALF the effort. [place] lifts, holds or supports trunk or limbs, but provides less than half the effort. 2-Substantial/Maximal Assistance-helper does MORE THAN HALF the effort. [place] lifts or holds trunk or limbs and provides more than half the effort. 7-Atpznrhkz-jwnqzp does ALL the effort. Patient does none of the effort to complete the activity. Or, the assistance of 2 or more helpers is required for the patient to complete the activity. If activity was not attempted, code reason: 7-Patient Refused. 9-Not Applicable-not attempted and the patient did not perform the activity before the current illness, exacerbation or injury. 10-Not Attempted due to Environmental Limitations-(lack of equipment, weather restraints, etc.). 88-Not Attempted due to Medical Conditions or Safety Concerns. Roll Left & Right (QC): 3 Sit to Lying (QC): 2 Lying to Sitting/Side of Bed(Q: 2 Sit to Stand (QC): 2 Chair/Lap-ho-Dctht Xfer(QC): 2 Weight Bearing Right Lower Extremity: Right Weight Bearing/Tolerated Left Lower Extremity: Left Full Weight Bearing Gait Training Does the Patient Walk?: No and Walking Goal IS indicated Wheelchair Training Does the Pt Use a Wheelchair?: Yes Wheel 50 ft with 2 turns (QC): 4 Type of Wheelchair: Manual Patient propels himself 150 feet total with 2 rest breaks. Exercises Supine Ex: Ankle pumps, Quad Set, Glut sets, Heel Slides, Straight leg raise, Hip abd/add Supine Reps: 20 Seated Therapy Exercises: Long arc quads, Hamstring Curls, Hip abd/add Seated Reps: 20 Hip abd/adduction in supine, right LE performed mostly PROM, avoiding adduction beyond midline with focus on increasing right hip ROM. Seated, Hip adduction performed with a ball to increase strength and not allow right femoral adduction beyond neutral/midline. Assessment Current Status: Fair Progress Patient tolerated treatment fair. Demonstrates minimal improvement in bed mobility and is able to perform with less verbal cueing. Continues to demonstrate difficulty with moving right LE. Requires max A for all transfers. Patient propels w/c 150 feet total with 2 rest breaks, with verbal cues for progression, performance, and to avoid obstacles. Patient performs sit to stand x 3 with focus on proper performance, use of UEs and adequate weight shifting. Static and dynamic standing activities performed with focus on standing endurance and weight shifting onto right LE to increase tolerance. Patient in chair post treatment with all needs met, nursing notified, call light in hand, and chair alarm activated. PT Hydroelectric Operator Goals Detention Goals PT Hydroelectric Operator Goals Time Frame: Feb 14, 2022 Roll Left & Right (QC): 4 Sit to Lying (QC): 4 Lying-Sitting on Side/Bed(QC): 4 Sit to Stand (QC): 4 Chair/Iyq-mv-Delrs Xfer(QC): 4 Toilet Transfer (QC): 4 Car Transfer (QC): 4 Does the Patient Walk: Yes Walk 10 feet (QC): 4 Walk 50ft with 2 Turns (QC): 4 Walk 150 ft (QC): 3 Walking 10ft on Uneven Surface: 4 1 Step (curb) (QC): 2 4 Steps (QC): 2 12 Steps (QC): 88 Picking up an Object (QC): 4 Does the Pt use WC or Scooter?: Yes Wheel 50 feet with 2 turns (QC: 5 Type: Manual Wheel 150 feet: 5 Type: Manual PT Plan Treatment/Plan Treatment Plan: Continue Plan of Care Treatment Plan: Bed Mobility, Education, Functional Activity [place], Functional Strength, Group Therapy, Gait, Safety, Therapeutic Exercise, Transfers Treatment Duration: Mar 07, 2022 Frequency: At least 5 of 7 days/Wk (IRF) Estimated Hrs Per Day: 1.5 hours per day Patient and/or Family Agrees t: Yes Safety Risks/Education Patient Education: Transfer Techniques Teaching Recipient: Patient, Family Teaching Methods: Demonstration, Discussion Response to Teaching: Reinforcement Needed Time/GCodes Time In: 800 Time Out: 915 Total Billed Treatment Time: 75 Total Billed Treatment Visit, FA (30), Ex (30), W/C (30) SIS GOMES PT Jan 30, 2022 09:16
[2022-01-30] MEDS: PSEUDOEPHEDRINE HCL 30 MG (SUDAFED) TAB PO SCH ×2 (09:17→21:50)
[2022-01-30] MEDS: polyethylene glycoL POWDER 17 GM (MIRALAX) PACK PO SCH ×2 (09:18→21:51)
[2022-01-30] MEDS: DOCUSATE SODIUM 100 MG (COLACE) CAP PO SCH ×2 (09:18→21:52)
[2022-01-30] MEDS: SENNA W/DOCUSATE (SENOKOT S) TABLET PO SCH ×2 (09:18→21:51)
[2022-01-30] MEDS: tadalafiL 5 MG TABLET (NON-FORMULARY) PO SCH (09:19)
--- NOTE | 2022-01-30 10:31 | Speech Therapy Daily Note ---
Speech Daily Progress Note Subjective Date Seen by Provider: Jan 30, 2022 Time Seen by Provider: 11:00 The patient was seated upright in his recliner, sleeping upon entrance to his room by the clinician. The patient minimally woke with maximum verbal cueing from the clinician. The patient consistently returns to sleep throughout the session, following each question or exercise. The patient was agreeable to participation in the cognitive linguistic and dysphagia treatment session. Objective The patient completed the SLUMS on this date. The patient displayed a result of +3/30 on the SLUMS correlating to a score of dementia. The patient displayed errors throughout delayed recall, immediate recall, problem solving, orientation, and attention. Following, the patient was asked the uses of specific occupational therapy tools ("grabber"). The patient stated the item was a phone and instructed the clinician the item is used to "talk on." The patient consumed sips of thin liquid throughout the session. The patient consumed five straw drinks of thin liquid (water) and three straw drinks of thin liquid (coffee). The patient required the clinician to provide support of the cup each time. The patient displayed consistent oral holding of the material, requiring maximum verbal cueing for elicitation of a pharyngeal swallow. The patient does not display s/s of suspected aspiration throughout the trials on this date. Assessment Assessment Current Status: Poor Progress Treatment Plan Continue Plan of Care Speech Short Term Goals Short Term Goals Short Term Goals 1. The patient, staff, and family members will follow safe swallowing strategies with 90% accuracy, independently. 2. The patient will respond appropriately to simple yes and no questions with 75% accuracy and mild clinician verbal cueing. Speech Security Flex Officer Goals Security Flex Officer Goals 1. The patient will tolerate the least restrictive diet consistency without s/s of suspected aspiration. 2. The patient will demonstrate an improvement in cognitive linguistic skills for safe discharge to the least restrictive environment. Speech-Plan Treatment Plan Speech Therapy Treatment Plan: Continue Plan of Care Treatment Duration: Feb 12, 2022 Frequency: Modified Program (IRF) Estimated Hrs Per Day: .5 hour per day Rehab Potential: Poor Safety Risks/Education Teaching Recipient: Patient Teaching Methods: Discussion Response to Teaching: Unable to Comprehend Education Topics Provided: Safe Swallowing Recommendations/Strategies Time Speech Therapy Time In: 11:00 Speech Therapy Time Out: 11:30 Total Billed Time: 30 Billed Treatment Time BELINDA Renee DYST LOY, ELIZABETH ST Jan 30, 2022 10:31
--- NOTE | 2022-01-30 10:58 | Occupational Ther Daily Note ---
OT Current Status-Daily Note Subjective Pt confused, difficulty having a conversation as he often loses train of thought. Appearance Pt left reclined in chair, chair alarm set, all needs within reach. Mental Status/Objective Patient Orientation: Person, Confused Attachments: IV ADL-Treatment Therapy Code Descriptions/Definitions Functional [place] Measure: 0=Not Assessed/NA 4=Minimal Assistance 1=Total Assistance 5=Supervision or Setup 2=Maximal Assistance 6=Modified [place] 3=Moderate Assistance 7=Complete IndependenceSCALE: Activities may be completed with or without assistive devices. 1-Frhjfbjwhd-nlvnlpp completes the activity by him/herself with no assistance from a helper. 5-Set-up or Clean-up Assistance-helper sets up or cleans up; patient completes activity. [place] assists only prior to or following the activity. 4-Supervision or Touching Assistance-helper provides verbal cues and/or touching /steadying and/or contact guard assistance as patient completes activity. Assistance may be provided throughout the activity or intermittently. 3-Partial/Moderate Assistance-helper does LESS THAN HALF the effort. [place] lifts, holds or supports trunk or limbs, but provides less than half the effort. 2-Substantial/Maximal Assistance-helper does MORE THAN HALF the effort. [place] lifts or holds trunk or limbs and provides more than half the effort. 5-Lrzfwunjo-ozoeuh does ALL the effort. Patient does none of the effort to complete the activity. Or, the assistance of 2 or more helpers is required for the patient to complete the activity. If activity was not attempted, code reason: 7-Patient Refused. 9-Not Applicable-not attempted and the patient did not perform the activity before the current illness, exacerbation or injury. 10-Not Attempted due to Environmental Limitations-(lack of equipment, weather restraints, etc.). 88-Not Attempted due to Medical Conditions or Safety Concerns. Shower/Bathe Self (QC): 3 Upper Body Dressing (QC): 3 Lower Body Dressing (QC): 2 On/Off Footwear: 1 Pt sleeping at OT arrival. He is easy to rouse but drowsy throughout entire session. Pt moves slowly with all activities and needs significant time for processing/initiating. Tactile cues often needed to start or finish task. Sponge bath performed seated in recliner. Post tactile and verbal cues, pt able to wash under bilateral arms, chest, and upper thighs. Assist needed to wash below knees. Raina care/buttocks not completed as RN reports she had just washed and pu t new briefs on the patient. Pt would be dependent to wash buttocks in standing due to needing BUE support to maintain balance. Simple 1 step cues for correct senior cyber security analyst use. Good follow through with simple cues, however needs time to complete. Assist still needed to thread shorts completely over both feet with senior cyber security analyst. Max a to stand with step by step cues for sequencing through transfer. Once upright, min-mod a required to maintain balance. Cues/assist to shift weight forward. Again, due to needing BUE support, pt was dependent for clothing management. Other Treatment Pt completed UE exercises with dowel teofilo. Focus on improving strength and endurance needed for functional tasks. Initially, 2# resistance was added however pt unable to tolerate and weight was removed. Visual cues and counting reps out loud appear to help. Pt often needs cues to complete movement to full range. Very slow with all exercises. Pt does fatigue quickly and often initiates several breaks. 1x6 all planes. Education OT Patient Education: Correct positioning, Exercise program, Modified ADL techniques, Progress toward Goal/Update tx plan, Purpose of tx/functional activities, Reviewed precautions, Rehab process, Safety issues, Transfer techniques, Use of adapted equipment Teaching Recipient: Patient Teaching Methods: Demonstration, Discussion Response to Teaching: Reinforcement Needed OT Short Term Goals Short Term Goals Time Frame: Feb 11, 2022 Eatin Oral hygiene: 3 Toileting hygiene: 3 Shower/bathe self: 2 Upper body dressin Lower body dressin Putting on/taking off footwear: 2 OT Detention Goals Senior Estimator Goals Time Frame: Feb 25, 2022 Eating (QC): 5 Oral Hygiene (QC): 5 Toileting Hygiene (QC): 4 Shower/Bathe Self (QC): 3 Upper Body Dressing (QC): 4 Lower Body Dressing (QC): 3 On/Off Footwear (QC): 2 1=Demonstrate adherence to instructed precautions during ADL tasks. 2=Patient will verbalize/demonstrate understanding of assistive devices/modifications for ADL. 3=Patient will improve strength/tolerance for activity to enable patient to perform ADL's. OT Education/Plan Problem List/Assessment Assessment: Decreased Activ Tolerance, Decreased Safety Aware, Decreased UE Strength, Dependent Transfers, Impaired Cognition, Impaired Coordination, Impaired Funct Balance, Impaired I ADL's, Impaired Self-Care Skills Discharge Recommendations Plan/Recommendations: Continue POC Therapy Discharge Recommendati: Post Acute OT Treatment Plan/Plan of Care Treatment,Training & Education: Yes Patient would benefit from OT for education, treatment and training to promote independence in ADL's, mobility, safety and/or upper extremity function for ADL's. Plan of Care: ADL Retraining, Caregiver Training, Cognitive Retraining, Concurrent Therapy, Functional Mobility, Group Exercise/Act as Ind, UE Funct Exercise/Act, W/C Management Training Treatment Duration: Feb 25, 2022 Frequency: At least 5 of 7 days/Wk (IRF) Estimated Hrs Per Day: 1.5 hours per day (75-90 min/day) Rehab Potential: Poor Time/GCodes Start Time: 09:45 Stop Time: 11:00 Total Time Billed (hr/min): 75 Billed Treatment Time 1 visit ADL x4 (55 min) EX (20 min) Kayla Desai OT Jan 30, 2022 10:58
[2022-01-30] MEDS: HYDROcodone/APAP 5 MG/325 MG (LORTAB) TAB PO PRN (13:54)
[2022-01-30] MEDS: amLODIPine 5 MG (NORVASC) TAB PO SCH (13:55)
[2022-01-30] MEDS: SERTRALINE 100 MG (ZOLOFT) TAB PO SCH (13:55)
[2022-01-30 14:00] VITALS: BP 145/79
[2022-01-30 19:57] VITALS: BP 147/74
[2022-01-30] MEDS: NIACIN ER (NIASPAN) 500 MG TAB PO SCH (21:49)
[2022-01-30] MEDS: ALPRAZolam 0.5 MG (XANAX) TAB PO SCH (21:50)
[2022-01-30] MEDS: MIRABEGRON 25 MG TAB (MYRBETRIQ) PO SCH (21:50)
[2022-01-30] MEDS: TERAZOSIN 1 MG CAP (HYTRIN) PO SCH (21:50)
--- NOTE | 2022-01-31 06:09 | PM&R Progress Note ---
Subjective HPI/CC On Admission Date Seen by Provider: Jan 31, 2022 Time Seen by Provider: 12:30 Subjective/Events-last exam 01/31/2022: Dramatic improvement at bedside No concerns Voiding well Hemoglobin improved Completed antibiotic 01/30/2022: Patient doing much better Sitting up in chair today Pain is improved No major concerns We will check labs tomorrow 01/29/2022: Pt is doing pretty well Blood sugar was 173 last night and 111 today Doesn't eat much Oriented x2 Pain pill taken which helps Incontinent of loose stools so holding laxative Crushing meds help Review of Systems General: Fatigue, Malaise Musculoskeletal: leg pain Neurological: Confusion Objective Exam Vital Signs Vital Signs Date Time Temp Pulse Resp B/P (MAP) Pulse Ox O2 Delivery O2 Flow Rate FiO2 01/31/22 21:25 Nasal Cannula 3.00 01/31/22 21:20 96 01/31/22 20:04 37.1 107 16 163/77 (105) Capillary Refill : General Appearance: No Apparent Distress, WD/WN, Chronically ill, Thin HEENT: PERRL/EOMI, Normal ENT Inspection, Pharynx Normal Neck: Full Range of Motion, Normal Inspection, Non Tender, Supple, Carotid Bruit Respiratory: Chest Non Tender, Lungs Clear, Normal Breath Sounds, No Accessory Muscle Use, No Respiratory Distress, Decreased Breath Sounds Cardiovascular: Regular Rate, Rhythm, No Edema, No Gallop, No JVD, No Murmur, Normal Peripheral Pulses Gastrointestinal: Normal Bowel Sounds, No Organomegaly, No Pulsatile Mass, Non Tender, Soft Back: Normal Inspection, No CVA Tenderness, No Vertebral Tenderness Extremity: Normal Capillary Refill, Normal Inspection, Normal Range of Motion, Non Tender, No Calf Tenderness, No Pedal Edema Neurologic/Psychiatric: Alert, accounting specialist II-XII Norm as Tested, Abnormal Gait, Depressed Affect, Disoriented, Motor Weakness (generalized but specifically right leg) Skin: Normal Color, Warm/Dry Lymphatic: No Adenopathy Results/Procedures Lab Laboratory Tests 01/31/22 06:35 Patient resulted labs reviewed. FIM Transfers Therapy Code Descriptions/Definitions Functional [place] Measure: 0=Not Assessed/NA 4=Minimal Assistance 1=Total Assistance 5=Supervision or Setup 2=Maximal Assistance 6=Modified [place] 3=Moderate Assistance 7=Complete IndependenceSCALE: Activities may be completed with or without assistive devices. 8-Alzocqdorw-ahjvzoq completes the activity by him/herself with no assistance from a helper. 5-Set-up or Clean-up Assistance-helper sets up or cleans up; patient completes activity. [place] assists only prior to or following the activity. 4-Supervision or Touching Assistance-helper provides verbal cues and/or touching/steadying and/or contact guard assistance as patient completes activity. Assistance may be provided throughout the activity or intermittently. 3-Partial/Moderate Assistance-helper does LESS THAN HALF the effort. [place] lifts, holds or supports trunk or limbs, but provides less than half the effort. 2-Substantial/Maximal Assistance-helper does MORE THAN HALF the effort. [place] lifts or holds trunk or limbs and provides more than half the effort. 7-Cxwijtrtp-shztpj does ALL the effort. Patient does none of the effort to complete the activity. Or, the assistance of 2 or more helpers is required for the patient to complete the activity. If activity was not attempted, code reason: 7-Patient Refused. 9-Not Applicable-not attempted and the patient did not perform the activity before the current illness, exacerbation or injury. 10-Not Attempted due to Environmental Limitations-(lack of equipment, weather restraints, etc.). 88-Not Attempted due to Medical Conditions or Safety Concerns. Roll Left to Right (QC): 3 Sit to Lying (QC): 2 Sit to Stand (QC): 2 Chair/Lwn-qi-Kocgf Xfer(QC): 2 Car Transfer (QC): 2 Gait Training Does the Patient Walk?: No and Walking Goal IS indicated Distance: 5 Walk 10 feet (QC): 88 Walk 50 ft with 2 Turns(QC): 88 Walk 150 ft (QC): 88 Walking 10ft/uneven surface-QC: 88 Gait Persons Needed: 2 Gait Assistive Device: FWW Wheelchair Training Does the Pt Use a Wheelchair?: Yes Distance: 50 Wheel 50 ft with 2 turns (QC): 4 Wheel 150 ft (QC): 88 Type of Wheelchair: Manual Stair Training #of Steps: 0 1 Step (curb) (QC): 88 4 Steps (QC): 88 12 Steps (QC): 88 Balance Picking up an Object (QC): 88 ADL-Treatment Eating (QC): 2 (per clinical judgment) Oral Hygiene (QC): 2 Shower/Bathe Self (QC): 3 Upper Body Dressing (QC): 3 Lower Body Dressing (QC): 2 On/Off Footwear (QC): 1 Toileting Hygiene (QC): 1 Toilet Transfer (QC): 2 Assessment/Plan Assessment and Plan Assess & Plan/Chief Complaint Assessment: Status post right hip fracture with post op complication of acute respiratory failure due to PNA requiring intubation Dementia TIA history Smoker Hypertension Hyperlipidemia Chronic constipation BPH New urinary incontinence Diabetes mellitus Rectal carcinoma s/p radiation only not tolerated well via [facility] Anemia s/p transfusions of 2 units of blood KATH on admit [place] cath in place Neuropathy Plan: PT OT Pain control Monitor closely 01/29/2022: Monitor hemoglobin Pain control Improve transfers and strengthening to help when he returns home on hospice 01/30/2022: Much improved Continue aggressive rehab in order to return back home to hospice 01/31/2022: Much improved Completed antibiotic (1) Closed right hip fracture Status: Acute (2) Diabetes mellitus Status: Chronic (3) Dementia Status: Chronic (4) Hypertension (5) BPH (benign prostatic hyperplasia) Status: Chronic (6) DVT prophylaxis Status: Acute (7) Acute kidney injury superimposed on chronic kidney disease (8) Primary hypertension (9) Mixed hyperlipidemia (10) Aortic regurgitation (11) Pulmonary hypertension (12) Smoker (13) Hyperlipidemia (14) Frailty LENNY CAVANAUGH DO Jan 31, 2022 06:09
[2022-01-31] MEDS: inSUlin ASPART (NovoLOG) 1 UNIT/0.01 ML (CHARGE PER UNIT) SC SCH ×4 (06:17→21:27)
[2022-01-31 07:02] LABS: BASOPHILS % (AUTO) 0 % (0-10); EOSINOPHILS # (AUTO) 0.2 10^3/uL (0.0-0.3); EOSINOPHILS % (AUTO) 2 % (0-10); HEMATOCRIT 25 % (40-54); HEMOGLOBIN 8.2 g/dL (13.3-17.7); LYMPHOCYTES # (AUTO) 0.8 10^3/uL (1.0-4.0); LYMPHOCYTES % (AUTO) 10 % (12-44); MEAN CORPUSCULAR HEMOGLOBIN 30 pg (25-34); MEAN CORPUSCULAR HGB CONC 33 g/dL (32-36); MEAN CORPUSCULAR VOLUME 90 fL (80-99); MEAN PLATELET VOLUME 9.8 fL (9.0-12.2); MONOCYTES # (AUTO) 0.8 10^3/uL (0.0-1.0); MONOCYTES % (AUTO) 10 % (0-12); NEUTROPHILS # (AUTO) 6.5 10^3/uL (1.8-7.8); NEUTROPHILS % (AUTO) 76 % (42-75); PLATELET COUNT 433 10^3/uL (130-400); WHITE BLOOD COUNT 8.7 10^3/uL (4.3-11.0)
[2022-01-31 07:23] LABS: CALCIUM 9.5 MG/DL (8.5-10.1)
[2022-01-31 07:25] LABS: TOTAL PROTEIN 6.1 GM/DL (6.4-8.2)
[2022-01-31 07:26] LABS: BILIRUBIN,TOTAL 1.3 MG/DL (0.1-1.0)
[2022-01-31 07:28] LABS: CREATININE SERUM 1.07 MG/DL (0.60-1.30)
[2022-01-31 07:41] VITALS: BP 137/78
[2022-01-31] MEDS: SENNA W/DOCUSATE (SENOKOT S) TABLET PO SCH ×2 (09:17→21:25)
[2022-01-31] MEDS: PSEUDOEPHEDRINE HCL 30 MG (SUDAFED) TAB PO SCH ×2 (09:17→21:27)
[2022-01-31] MEDS: LORATADINE (CLARITIN) 10 MG TAB PO SCH (09:17)
[2022-01-31] MEDS: eZETimibe 10 MG (ZETIA) TABLET PO SCH (09:17)
[2022-01-31] MEDS: VITAMIN D3 25 MCG (1,000 UNITS) TABLET PO SCH (09:17)
[2022-01-31] MEDS: PANTOPRAZOLE 20 MG TABLET (PROTONIX) PO SCH (09:18)
[2022-01-31] MEDS: CEFDINIR 300 MG (OMNICEF) CAP PO SCH (09:18)
[2022-01-31] MEDS: PREGABALIN 25 MG (LYRICA) CAPSULE PO SCH ×2 (09:18→21:27)
[2022-01-31] MEDS: LOSARTAN 100 MG (COZAAR) TABLET PO SCH (09:18)
[2022-01-31] MEDS: TAMSULOSIN 0.4 MG (FLOMAX) CAP PO SCH (09:18)
[2022-01-31] MEDS: tadalafiL 5 MG TABLET (NON-FORMULARY) PO SCH (09:19)
[2022-01-31] MEDS: DOCUSATE SODIUM 100 MG (COLACE) CAP PO SCH ×2 (09:29→21:25)
[2022-01-31] MEDS: polyethylene glycoL POWDER 17 GM (MIRALAX) PACK PO SCH ×2 (09:29→21:25)
--- NOTE | 2022-01-31 10:08 | Physical Therapy Daily Note ---
PT Daily Note-Current Subjective Patient lying supine in bed, asleep upon PT arrival. Agreeable to treatment when aroused. Rates pain at 0/10 currently. Mental Status Patient Orientation: Person Transfers SCALE: Activities may be completed with or without assistive devices. 0-Gepkhkmwgb-otajhbb completes the activity by him/herself with no assistance from a helper. 5-Set-up or Clean-up Assistance-helper sets up or cleans up; patient completes activity. [place] assists only prior to or following the activity. 4-Supervision or Touching Assistance-helper provides verbal cues and/or touching/steadying and/or contact guard assistance as patient completes ac tivity. Assistance may be provided throughout the activity or intermittently. 3-Partial/Moderate Assistance-helper does LESS THAN HALF the effort. [place] lifts, holds or supports trunk or limbs, but provides less than half the effort. 2-Substantial/Maximal Assistance-helper does MORE THAN HALF the effort. [place] lifts or holds trunk or limbs and provides more than half the effort. 1-Hclhhshwt-rshdqr does ALL the effort. Patient does none of the effort to complete the activity. Or, the assistance of 2 or more helpers is required for the patient to complete the activity. If activity was not attempted, code reason: 7-Patient Refused. 9-Not Applicable-not attempted and the patient did not perform the activity before the current illness, exacerbation or injury. 10-Not Attempted due to Environmental Limitations-(lack of equipment, weather restraints, etc.). 88-Not Attempted due to Medical Conditions or Safety Concerns. Roll Left & Right (QC): 3 Sit to Lying (QC): 2 Lying to Sitting/Side of Bed(Q: 2 Sit to Stand (QC): 3 Chair/Yoa-ic-Grdgt Xfer(QC): 2 Toilet Transfer (QC): 2 Weight Bearing Right Lower Extremity: Right Weight Bearing/Tolerated Left Lower Extremity: Left Full Weight Bearing Gait Training Does the Patient Walk?: Yes Distance: 8 feet x 2 Gait Persons Needed: 2 Gait Assistive Device: Parallel Bars Patient ambulates 8 feet x 2 in the parallel bars with PT for physical assistance and tech for w/c. Patient ambulates with step to gait patter on the right LE and the first set of 8 feet requires max A to put weight and support himself on the right LE to advance the left LE. However second set of 8 feet was able to perform step to on the right LE with CGA/min A at times. He was also able to advance the left LE and put more weight through his right LE with less assistance. Assessment Current Status: Fair Progress Upon arrival into patients room, patient was asleep and milk had been spilt all over the floor, covered with towels and housekeeping called to clean floor thoroughly. Upon inspecting patient prior to dressing him, he was incontinent of urine that had leaked through his briefs, the draw sheet, and the fitted sheet. Patient cleaned by this therapist and nurse notified. Patient performs all bed mobility with mod A and transfers with mod/max A. Patient ambulates 8 feet x 2 in the parallel bars with PT for physical assistance and tech for w/c. Patient ambulates with step to gait patter on the right LE and the first set of 8 feet requires max A to put weight and support himself on the right LE to advance the left LE. However second set of 8 feet was able to perform step to on the right LE with CGA/min A at times. He was also able to advance the left LE and put more weight through his right LE with less assistance. Patient performs LE therapeutic exercise of ankle pumps and hip abduction x 20 to increased LE vascularization and increase ROM. Patient propels w/c 100 feet with frequent verbal cues and min A at times for steering. Patient in w/c post treatment with all needs met, nursing notified and call light in hand. PT Jail Goals Jail Goals PT [employer] Space Salesperson Goals Time Frame: Feb 14, 2022 Roll Left & Right (QC): 4 Sit to Lying (QC): 4 Lying-Sitting on Side/Bed(QC): 4 Sit to Stand (QC): 4 Chair/Kzj-ry-Inipo Xfer(QC): 4 Toilet Transfer (QC): 4 Car Transfer (QC): 4 Does the Patient Walk: Yes Walk 10 feet (QC): 4 Walk 50ft with 2 Turns (QC): 4 Walk 150 ft (QC): 3 Walking 10ft on Uneven Surface: 4 1 Step (curb) (QC): 2 4 Steps (QC): 2 12 Steps (QC): 88 Picking up an Object (QC): 4 Does the Pt use WC or Scooter?: Yes Wheel 50 feet with 2 turns (QC: 5 Type: Manual Wheel 150 feet: 5 Type: Manual PT Plan Treatment/Plan Treatment Plan: Continue Plan of Care Treatment Plan: Bed Mobility, Education, Functional Activity [place], Functional Strength, Group Therapy, Gait, Safety, Therapeutic Exercise, Transfers Treatment Duration: Mar 07, 2022 Frequency: At least 5 of 7 days/Wk (IRF) Estimated Hrs Per Day: 1.5 hours per day Patient and/or Family Agrees t: Yes Safety Risks/Education Patient Education: Gait Training, Transfer Techniques Teaching Recipient: Patient Teaching Methods: Demonstration, Discussion Response to Teaching: Reinforcement Needed Time/GCodes Time In: 800 Time Out: 915 Total Billed Treatment Time: 75 Total Billed Treatment Visit, FA (30), BIGG, Nohemi, W/C SIS GOMES PT Jan 31, 2022 10:08
--- NOTE | 2022-01-31 10:54 | Occupational Ther Daily Note ---
OT Current Status-Daily Note Subjective Pt denies pain, drowsy throughout treatment. Appearance Pt left sitting in w/c, all needs within reach at OT departure. Mental Status/Objective Patient Orientation: Person, Confused Attachments: IV, Oxygen ADL-Treatment Therapy Code Descriptions/Definitions Functional [place] Measure: 0=Not Assessed/NA 4=Minimal Assistance 1=Total Assistance 5=Supervision or Setup 2=Maximal Assistance 6=Modified [place] 3=Moderate Assistance 7=Complete IndependenceSCALE: Activities may be completed with or without assistive devices. 5-Qvfbbtlctg-nwknbbi completes the activity by him/herself with no assistance from a helper. 5-Set-up or Clean-up Assistance-helper sets up or cleans up; patient completes activity. [place] assists only prior to or following the activity. 4-Supervision or Touching Assistance-helper provides verbal cues and/or touching/steadying and/or contact guard assistance as patient completes activity. Assistance may be provided throughout the activity or intermittently. 3-Partial/Moderate Assistance-helper does LESS THAN HALF the effort. [place] lifts, holds or supports trunk or limbs, but provides less than half the effort. 2-Substantial/Maximal Assistance-helper does MORE THAN HALF the effort. [place] lifts or holds trunk or limbs and provides more than half the effort. 7-Dvnxzwctu-xcevor does ALL the effort. Patient does none of the effort to complete the activity. Or, the assistance of 2 or more helpers is required for the patient to complete the activity. If activity was not attempted, code reason: 7-Patient Refused. 9-Not Applicable-not attempted and the patient did not perform the activity before the current illness, exacerbation or injury. 10-Not Attempted due to Environmental Limitations-(lack of equipment, weather restraints, etc.). 88-Not Attempted due to Medical Conditions or Safety Concerns. Oral Hygiene (QC): 3 On/Off Footwear: 3 Toileting Hygiene (QC): 1 Toilet Transfer (QC): 1 Pt sleeping in w/c at OT arrival. Easy to waken but remains drowsy throughout entire treatment. Pt already dressed for the day, declines shower. Pt states he usually bathes in the evenings. Attempt at educating pt that a few showers may have to be moved to the day time, unsure if pt comprehended education provided. Grooming tasks performed seated at sink. Trunk/back support removed to promote increased core strength and sitting balance. Min-mod a needed throughout to remain upright and to shift anteriorly in order to spit. Cues also to turn electric toothbrush on and to turn on/off water. With fatigue, increased balance assist required. Thus, w/c back support returned in order to finish tasks. Repetition on purpose of back pad inspector and sock aid. With repetition and practice, pt was able to verbalize correct use at end of treatment. He did require step by step cues when using tools to don socks and practice picking small item off the floor. Dependent to don jesus hose. Pt on 3L O2 throughout adls, remains >98%. RN notified and oxygen reduced to 1L. O2 spot checked and Pt continues to remain >96%. Other Treatment Toilet transfer x4 with focus on improving performance, sequencing, weight bearing, balance,problem solving, and safety during functional transfers. Initially, Max a x1 to stand, 2nd person present for safety. With increased activity, fatigue worsens, needing assist x2 to stand. Step by step cues needed to complete 100% of transfer. Assist to shift weight onto RLE in order to advance left. With each toilet>w/c transfer, pt completed squat pivot transfer and w/c>toilet-stand pivot. Slightly less physical assistance and cues needed when completing squat pivot. Very lengthy sitting rest breaks needed in between each toilet<>w/c transfer. Education OT Patient Education: Correct positioning, Energy conservation, Modified ADL techniques, Progress toward Goal/Update tx plan, Purpose of tx/functional activities, Reviewed precautions, Rehab process, Safety issues, Transfer techniques, Use of adapted equipment, W/C management Teaching Recipient: Patient Teaching Methods: Demonstration, Discussion Response to Teaching: Reinforcement Needed OT Short Term Goals Short Term Goals Time Frame: Feb 11, 2022 Eatin Oral hygiene: 3 Toileting hygiene: 3 Shower/bathe self: 2 Upper body dressin Lower body dressin Putting on/taking off footwear: 2 OT Brush Machine Setter Goals [facility] Goals Time Frame: Feb 25, 2022 Eating (QC): 5 Oral Hygiene (QC): 5 Toileting Hygiene (QC): 4 Shower/Bathe Self (QC): 3 Upper Body Dressing (QC): 4 Lower Body Dressing (QC): 3 On/Off Footwear (QC): 2 1=Demonstrate adherence to instructed precautions during ADL tasks. 2=Patient will verbalize/demonstrate understanding of assistive devices/modifications for ADL. 3=Patient will improve strength/tolerance for activity to enable patient to perform ADL's. OT Education/Plan Problem List/Assessment Assessment: Decreased Activ Tolerance, Decreased Safety Aware, Decreased UE Strength, Dependent Transfers, Edema, Impaired Bed Mobility, Impaired Cognition, Impaired Coordination, Impaired Funct Balance, Impaired I ADL's, Impaired Self- Care Skills, Restricted Funct UE ROM Discharge Recommendations Plan/Recommendations: Continue POC Therapy Discharge Recommendati: Post Acute OT Treatment Plan/Plan of Care Treatment,Training & Education: Yes Patient would benefit from OT for education, treatment and training to promote independence in ADL's, mobility, safety and/or upper extremity function for ADL's. Plan of Care: ADL Retraining, Caregiver Training, Cognitive Retraining, Concurrent Therapy, Functional Mobility, Group Exercise/Act as Ind, UE Funct Exercise/Act, W/C Management Training Treatment Duration: Feb 25, 2022 Frequency: At least 5 of 7 days/Wk (IRF) Estimated Hrs Per Day: 1.5 hours per day (75-90 min/day) Rehab Potential: Poor Time/GCodes Start Time: 09:45 Stop Time: 11:00 Total Time Billed (hr/min): 75 Billed Treatment Time 1 visit ADL x2 (35 min) FA x3 (40 min) Kayla Desai OT Jan 31, 2022 10:54
--- NOTE | 2022-01-31 14:48 | Speech Therapy Daily Note ---
Speech Daily Progress Note Subjective Date Seen by Provider: Jan 31, 2022 Time Seen by Provider: 13:00 The patient was being transferred to bed upon entrance to his room by the clinician. The patient was lying in bed throughout his treatment session, eyes closed for a majority of the treatment session, requiring maximum verbal encouragement for limited participation. Objective - Orientation: The patient was not oriented to the day of the week on this date and did not attempt to open his eyes (with verbal prompts) to locate orientation information on the in-room white board. - The patient, the clinician, and the patient's reviewed and discussed the patient's current diet consistency. The patient's believes the patient's reduced appetite is secondary to the diet consistency he is consuming. At this time, due to lethargy, the patient is unable to remain alert throughout a treatment session to attempt safe re-evaluation. Additionally, due to lethargy, the clinician is attempting energy conservation by reducing mastication necessary. The patient's stated the patient enjoys Eggo waffles. The clinician agreed to provide Eggo waffles in an attempt to improve patient motivation for participation. The clinician will attempt the diet consistency throughout the subsequent treatment session. - The clinician attempted review of safe swallowing strategies, however, the patient returned to sleep regardless of maximum clinician cueing. - The patient would intermittently wake and participate in limited structured conversation including functional recall. Limited accuracy was achieved with the structured conversation exercise. The patient remains extremely difficult to provide skilled services to secondary to consistent lethargy. Assessment Assessment Current Status: Poor Progress Treatment Plan Continue Plan of Care Speech Short Term Goals Short Term Goals Short Term Goals 1. The patient, staff, and family members will follow safe swallowing strategies with 90% accuracy, independently. 2. The patient will respond appropriately to simple yes and no questions with 75% accuracy and mild clinician verbal cueing. Speech Bottle Packing Machine Cleaner Goals [facility] Goals 1. The patient will tolerate the least restrictive diet consistency without s/s of suspected aspiration. 2. The patient will demonstrate an improvement in cognitive linguistic skills for safe discharge to the least restrictive environment. Speech-Plan Treatment Plan Speech Therapy Treatment Plan: Continue Plan of Care Treatment Duration: Feb 12, 2022 Frequency: Modified Program (IRF) Estimated Hrs Per Day: .5 hour per day Rehab Potential: Poor Safety Risks/Education Teaching Recipient: Patient, Significant Other Teaching Methods: Discussion Response to Teaching: Verbalize Understanding Education Topics Provided: Safe Swallowing Strategies Time Speech Therapy Time In: 13:00 Speech Therapy Time Out: 13:30 Total Billed Time: 30 Billed Treatment Time 1, BELINDA, GINA ROMANO Jan 31, 2022 14:48
[2022-01-31 15:53] VITALS: BP 144/79
[2022-01-31] MEDS: SERTRALINE 100 MG (ZOLOFT) TAB PO SCH (15:58)
[2022-01-31] MEDS: amLODIPine 5 MG (NORVASC) TAB PO SCH (15:58)
[2022-01-31 20:04] VITALS: BP 163/77
[2022-01-31] MEDS: NIACIN ER (NIASPAN) 500 MG TAB PO SCH (21:26)
[2022-01-31] MEDS: ALPRAZolam 0.5 MG (XANAX) TAB PO SCH (21:26)
[2022-01-31] MEDS: MIRABEGRON 25 MG TAB (MYRBETRIQ) PO SCH (21:26)
[2022-01-31] MEDS: TERAZOSIN 1 MG CAP (HYTRIN) PO SCH (21:27)
--- NOTE | 2022-02-01 06:35 | PM&R Progress Note ---
Subjective HPI/CC On Admission Date Seen by Provider: Feb 01, 2022 Time Seen by Provider: 12:00 Subjective/Events-last exam 02/01/2022: Doing well at bedside Eating minimally No falls No pain reported 01/31/2022: Dramatic improvement at bedside No concerns Voiding well Hemoglobin improved Completed antibiotic 01/30/2022: Patient doing much better Sitting up in chair today Pain is improved No major concerns We will check labs tomorrow 01/29/2022: Pt is doing pretty well Blood sugar was 173 last night and 111 today Doesn't eat much Oriented x2 Pain pill taken which helps Incontinent of loose stools so holding laxative Crushing meds help Review of Systems General: Fatigue, Malaise Objective Exam Vital Signs Vital Signs Date Time Temp Pulse Resp B/P (MAP) Pulse Ox O2 Delivery O2 Flow Rate FiO2 02/01/22 08:33 111 95 Nasal Cannula 1.50 02/01/22 08:30 21 02/01/22 07:02 36.9 159/86 (110) Capillary Refill : General Appearance: No Apparent Distress, WD/WN, Chronically ill, Thin HEENT: PERRL/EOMI, Normal ENT Inspection, Pharynx Normal Neck: Full Range of Motion, Normal Inspection, Non Tender, Supple, Carotid Bruit Respiratory: Chest Non Tender, Lungs Clear, Normal Breath Sounds, No Accessory Muscle Use, No Respiratory Distress, Decreased Breath Sounds Cardiovascular: Regular Rate, Rhythm, No Edema, No Gallop, No JVD, No Murmur, Normal Peripheral Pulses Gastrointestinal: Normal Bowel Sounds, No Organomegaly, No Pulsatile Mass, Non Tender, Soft Back: Normal Inspection, No CVA Tenderness, No Vertebral Tenderness Extremity: Normal Capillary Refill, Normal Inspection, Normal Range of Motion, Non Tender, No Calf Tenderness, No Pedal Edema Neurologic/Psychiatric: Alert, high school science tutor II-XII Norm as Tested, Abnormal Gait, Depressed Affect, Disoriented, Motor Weakness (generalized but specifically right leg) Skin: Normal Color, Warm/Dry Lymphatic: No Adenopathy Results/Procedures Lab Patient resulted labs reviewed. FIM Transfers Therapy Code Descriptions/Definitions Functional [place] Measure: 0=Not Assessed/NA 4=Minimal Assistance 1=Total Assistance 5=Supervision or Setup 2=Maximal Assistance 6=Modified [place] 3=Moderate Assistance 7=Complete IndependenceSCALE: Activities may be completed with or without assistive devices. 4-Dqdkqkfdeh-giitjcm completes the activity by him/herself with no assistance from a helper. 5-Set-up or Clean-up Assistance-helper sets up or cleans up; patient completes activity. [place] assists only prior to or following the activity. 4-Supervision or Touching Assistance-helper provides verbal cues and/or touching/steadying and/or contact guard assistance as patient completes activity. Assistance may be provided throughout the activity or intermittently. 3-Partial/Moderate Assistance-helper does LESS THAN HALF the effort. [place] lifts, holds or supports trunk or limbs, but provides less than half the effort. 2-Substantial/Maximal Assistance-helper does MORE THAN HALF the effort. [place] lifts or holds trunk or limbs and provides more than half the effort. 0-Hofovsgov-ruzmje does ALL the effort. Patient does none of the effort to complete the activity. Or, the assistance of 2 or more helpers is required for the patient to complete the activity. If activity was not attempted, code reason: 7-Patient Refused. 9-Not Applicable-not attempted and the patient did not perform the activity before the current illness, exacerbation or injury. 10-Not Attempted due to Environmental Limitations-(lack of equipment, weather restraints, etc.). 88-Not Attempted due to Medical Conditions or Safety Concerns. Roll Left to Right (QC): 3 Sit to Lying (QC): 2 Sit to Stand (QC): 3 Chair/Lfc-sc-Djvvq Xfer(QC): 2 Car Transfer (QC): 2 Gait Training Does the Patient Walk?: Yes Distance: 8 feet x 2 Walk 10 feet (QC): 88 Walk 50 ft with 2 Turns(QC): 88 Walk 150 ft (QC): 88 Walking 10ft/uneven surface-QC: 88 Gait Persons Needed: 2 Gait Assistive Device: Parallel Bars Wheelchair Training Does the Pt Use a Wheelchair?: Yes Distance: 50 Wheel 50 ft with 2 turns (QC): 4 Wheel 150 ft (QC): 88 Type of Wheelchair: Manual Stair Training #of Steps: 0 1 Step (curb) (QC): 88 4 Steps (QC): 88 12 Steps (QC): 88 Balance Picking up an Object (QC): 88 ADL-Treatment Eating (QC): 2 (per clinical judgment) Oral Hygiene (QC): 3 Shower/Bathe Self (QC): 3 Upper Body Dressing (QC): 3 Lower Body Dressing (QC): 2 On/Off Footwear (QC): 3 Toileting Hygiene (QC): 1 Toilet Transfer (QC): 1 Assessment/Plan Assessment and Plan Assess & Plan/Chief Complaint Assessment: Status post right hip fracture with post op complication of acute respiratory failure due to PNA requiring intubation Dementia TIA history Smoker Hypertension Hyperlipidemia Chronic constipation BPH New urinary incontinence Diabetes mellitus Rectal carcinoma s/p radiation only not tolerated well via [facility] Anemia s/p transfusions of 2 units of blood KATH on admit [place] cath in place Neuropathy Plan: PT OT Pain control Monitor closely 01/29/2022: Monitor hemoglobin Pain control Improve transfers and strengthening to help when he returns home on hospice 01/30/2022: Much improved Continue aggressive rehab in order to return back home to hospice 01/31/2022: Much improved Completed antibiotic 02/01/2022: Monitor closely Supportive care (1) Closed right hip fracture Status: Acute (2) Diabetes mellitus Status: Chronic (3) Dementia Status: Chronic (4) Hypertension (5) BPH (benign prostatic hyperplasia) Status: Chronic (6) DVT prophylaxis Status: Acute (7) Acute kidney injury superimposed on chronic kidney disease (8) Primary hypertension (9) Mixed hyperlipidemia (10) Aortic regurgitation (11) Pulmonary hypertension (12) Smoker (13) Hyperlipidemia (14) Frailty LENNY CAVANAUGH DO Feb 01, 2022 06:35
[2022-02-01] MEDS: inSUlin ASPART (NovoLOG) 1 UNIT/0.01 ML (CHARGE PER UNIT) SC SCH ×4 (06:49→21:47)
[2022-02-01 07:02] VITALS: BP 159/86
[2022-02-01] MEDS: TAMSULOSIN 0.4 MG (FLOMAX) CAP PO SCH (08:37)
[2022-02-01] MEDS: LORATADINE (CLARITIN) 10 MG TAB PO SCH (08:37)
[2022-02-01] MEDS: tadalafiL 5 MG TABLET (NON-FORMULARY) PO SCH (08:37)
[2022-02-01] MEDS: PANTOPRAZOLE 20 MG TABLET (PROTONIX) PO SCH (08:37)
[2022-02-01] MEDS: LOSARTAN 100 MG (COZAAR) TABLET PO SCH (08:37)
[2022-02-01] MEDS: PSEUDOEPHEDRINE HCL 30 MG (SUDAFED) TAB PO SCH ×2 (08:37→21:47)
[2022-02-01] MEDS: VITAMIN D3 25 MCG (1,000 UNITS) TABLET PO SCH (08:37)
[2022-02-01] MEDS: PREGABALIN 25 MG (LYRICA) CAPSULE PO SCH ×2 (08:37→21:47)
[2022-02-01] MEDS: eZETimibe 10 MG (ZETIA) TABLET PO SCH (08:37)
[2022-02-01] MEDS: DOCUSATE SODIUM 100 MG (COLACE) CAP PO SCH ×2 (09:10→21:45)
[2022-02-01] MEDS: polyethylene glycoL POWDER 17 GM (MIRALAX) PACK PO SCH ×2 (09:10→21:45)
[2022-02-01] MEDS: SENNA W/DOCUSATE (SENOKOT S) TABLET PO SCH ×2 (09:10→21:45)
--- NOTE | 2022-02-01 12:03 | Physical Therapy Daily Note ---
PT Daily Note-Current Subjective Pt laying Supine in bed upon arrival. Pt is very drowsy and ASSEMBLY MACHINE OFFBEARER & Sp try to keep pt awake during tx. Pain Location: No Pain Reported Mental Status Patient Orientation: Person, Place Transfers SCALE: Activities may be completed with or without assistive devices. 5-Fftjlcphsj-qsvmpdr completes the activity by him/herself with no assistance from a helper. 5-Set-up or Clean-up Assistance-helper sets up or cleans up; patient completes activity. [place] assists only prior to or following the activity. 4-Supervision or Touching Assistance-helper provides verbal cues and/or touchin g/steadying and/or contact guard assistance as patient completes activity. Assistance may be provided throughout the activity or intermittently. 3-Partial/Moderate Assistance-helper does LESS THAN HALF the effort. [place] lifts, holds or supports trunk or limbs, but provides less than half the effort. 2-Substantial/Maximal Assistance-helper does MORE THAN HALF the effort. [place] lifts or holds trunk or limbs and provides more than half the effort. 1-Vtkukqbuu-ccmpjd does ALL the effort. Patient does none of the effort to complete the activity. Or, the assistance of 2 or more helpers is required for the patient to complete the activity. If activity was not attempted, code reason: 7-Patient Refused. 9-Not Applicable-not attempted and the patient did not perform the activity before the current illness, exacerbation or injury. 10-Not Attempted due to Environmental Limitations-(lack of equipment, weather restraints, etc.). 88-Not Attempted due to Medical Conditions or Safety Concerns. Weight Bearing Right Lower Extremity: Right Weight Bearing/Tolerated Left Lower Extremity: Left Full Weight Bearing Exercises Supine Ex: Ankle pumps, Quad Set, Glut sets, Heel Slides, Straight leg raise, Hip abd/add Supine Reps: 15 Treatments Pt completes Supine Ex with several RB as pt falls asleep. ASSEMBLY MACHINE OFFBEARER continues to wake pt up throughout tx. Pt resting at end of tx, all needs met & call light in hand. Assessment Current Status: Fair Progress Pt is very drowsy during tx, continually needing to be woken up. Pt needed both VC & TC to complete EX. PT Guest Specialist Goals Guest Specialist Goals PT Guest Specialist Goals Time Frame: Feb 14, 2022 Roll Left & Right (QC): 4 Sit to Lying (QC): 4 Lying-Sitting on Side/Bed(QC): 4 Sit to Stand (QC): 4 Chair/Hig-yu-Kfrxq Xfer(QC): 4 Toilet Transfer (QC): 4 Car Transfer (QC): 4 Does the Patient Walk: Yes Walk 10 feet (QC): 4 Walk 50ft with 2 Turns (QC): 4 Walk 150 ft (QC): 3 Walking 10ft on Uneven Surface: 4 1 Step (curb) (QC): 2 4 Steps (QC): 2 12 Steps (QC): 88 Picking up an Object (QC): 4 Does the Pt use WC or Scooter?: Yes Wheel 50 feet with 2 turns (QC: 5 Type: Manual Wheel 150 feet: 5 Type: Manual PT Plan Problem List Problem List: Activity Tolerance, Functional Strength Treatment/Plan Treatment Plan: Continue Plan of Care Treatment Plan: Bed Mobility, Education, Functional Activity [place], Functional Strength, Group Therapy, Gait, Safety, Therapeutic Exercise, Transfers Treatment Duration: Mar 07, 2022 Frequency: At least 5 of 7 days/Wk (IRF) Estimated Hrs Per Day: 1.5 hours per day Patient and/or Family Agrees t: Yes Safety Risks/Education Patient Education: Correct Positioning, Safety Issues Teaching Recipient: Patient, Significant Other Teaching Methods: Discussion Response to Teaching: Verbalize Understanding Time/GCodes Time In: 1130 Time Out: 1155 Total Billed Treatment Time: 25 Total Billed Treatment 1, EX x2 (25m) STEPHAN SUN ASSEMBLY MACHINE OFFBEARER Feb 01, 2022 12:03
[2022-02-01] MEDS: MICONAZOLE 2% POWDER (DESENEX AF) 90 GM TOP SCH ×2 (15:21→21:59)
[2022-02-01 15:29] VITALS: BP 145/78
[2022-02-01] MEDS: SERTRALINE 100 MG (ZOLOFT) TAB PO SCH (15:34)
[2022-02-01] MEDS: amLODIPine 5 MG (NORVASC) TAB PO SCH (15:34)
[2022-02-01 19:48] VITALS: BP 131/68
[2022-02-01] MEDS: TERAZOSIN 1 MG CAP (HYTRIN) PO SCH (21:47)
[2022-02-01] MEDS: MIRABEGRON 25 MG TAB (MYRBETRIQ) PO SCH (21:47)
[2022-02-01] MEDS: NIACIN ER (NIASPAN) 500 MG TAB PO SCH (21:47)
[2022-02-01] MEDS: ALPRAZolam 0.5 MG (XANAX) TAB PO SCH (21:47)
[2022-02-02] MEDS: inSUlin ASPART (NovoLOG) 1 UNIT/0.01 ML (CHARGE PER UNIT) SC SCH ×4 (06:36→21:28)
[2022-02-02 07:03] VITALS: BP 155/74
--- NOTE | 2022-02-02 07:35 | PM&R Progress Note ---
Subjective HPI/CC On Admission Date Seen by Provider: Feb 02, 2022 Time Seen by Provider: 12:00 Subjective/Events-last exam 02/02/2022: Patient doing well overall at bedside No concerns at this time Improved appetite 02/01/2022: Doing well at bedside Eating minimally No falls No pain reported 01/31/2022: Dramatic improvement at bedside No concerns Voiding well Hemoglobin improved Completed antibiotic 01/30/2022: Patient doing much better Sitting up in chair today Pain is improved No major concerns We will check labs tomorrow 01/29/2022: Pt is doing pretty well Blood sugar was 173 last night and 111 today Doesn't eat much Oriented x2 Pain pill taken which helps Incontinent of loose stools so holding laxative Crushing meds help Review of Systems General: Fatigue, Malaise Musculoskeletal: leg pain Neurological: Confusion Objective Exam Vital Signs Vital Signs Date Time Temp Pulse Resp B/P (MAP) Pulse Ox O2 Delivery O2 Flow Rate FiO2 02/02/22 09:36 Nasal Cannula 1.50 02/02/22 07:03 37.0 104 20 155/74 (101) 92 Capillary Refill : General Appearance: No Apparent Distress, WD/WN, Chronically ill, Thin HEENT: PERRL/EOMI, Normal ENT Inspection, Pharynx Normal Neck: Full Range of Motion, Normal Inspection, Non Tender, Supple, Carotid Bruit Respiratory: Chest Non Tender, Lungs Clear, Normal Breath Sounds, No Accessory Muscle Use, No Respiratory Distress, Decreased Breath Sounds Cardiovascular: Regular Rate, Rhythm, No Edema, No Gallop, No JVD, No Murmur, Normal Peripheral Pulses Gastrointestinal: Normal Bowel Sounds, No Organomegaly, No Pulsatile Mass, Non Tender, Soft Back: Normal Inspection, No CVA Tenderness, No Vertebral Tenderness Extremity: Normal Capillary Refill, Normal Inspection, Normal Range of Motion, Non Tender, No Calf Tenderness, No Pedal Edema Neurologic/Psychiatric: Alert, binder selector II-XII Norm as Tested, Abnormal Gait, Depressed Affect, Disoriented, Motor Weakness (generalized but specifically right leg) Skin: Normal Color, Warm/Dry Lymphatic: No Adenopathy Results/Procedures Lab Patient resulted labs reviewed. FIM Transfers Therapy Code Descriptions/Definitions Functional [place] Measure: 0=Not Assessed/NA 4=Minimal Assistance 1=Total Assistance 5=Supervision or Setup 2=Maximal Assistance 6=Modified [place] 3=Moderate Assistance 7=Complete IndependenceSCALE: Activities may be completed with or without assistive devices. 5-Aertarmsmn-eeaacqj completes the activity by him/herself with no assistance from a helper. 5-Set-up or Clean-up Assistance-helper sets up or cleans up; patient completes activity. [place] assists only prior to or following the activity. 4-Supervision or Touching Assistance-helper provides verbal cues and/or touching/steadying and/or contact guard assistance as patient completes activity. Assistance may be provided throughout the activity or intermittently. 3-Partial/Moderate Assistance-helper does LESS THAN HALF the effort. [place] lifts, holds or supports trunk or limbs, but provides less than half the effort. 2-Substantial/Maximal Assistance-helper does MORE THAN HALF the effort. [place] lifts or holds trunk or limbs and provides more than half the effort. 2-Daechpsiy-uehygd does ALL the effort. Patient does none of the effort to complete the activity. Or, the assistance of 2 or more helpers is required for the patient to complete the activity. If activity was not attempted, code reason: 7-Patient Refused. 9-Not Applicable-not attempted and the patient did not perform the activity before the current illness, exacerbation or injury. 10-Not Attempted due to Environmental Limitations-(lack of equipment, weather restraints, etc.). 88-Not Attempted due to Medical Conditions or Safety Concerns. Roll Left to Right (QC): 3 Sit to Lying (QC): 2 Sit to Stand (QC): 3 Chair/Pky-ch-Iysri Xfer(QC): 2 Car Transfer (QC): 2 Gait Training Does the Patient Walk?: Yes Distance: 8 feet x 2 Walk 10 feet (QC): 88 Walk 50 ft with 2 Turns(QC): 88 Walk 150 ft (QC): 88 Walking 10ft/uneven surface-QC: 88 Gait Persons Needed: 2 Gait Assistive Device: Parallel Bars Wheelchair Training Does the Pt Use a Wheelchair?: Yes Distance: 50 Wheel 50 ft with 2 turns (QC): 4 Wheel 150 ft (QC): 88 Type of Wheelchair: Manual Stair Training #of Steps: 0 1 Step (curb) (QC): 88 4 Steps (QC): 88 12 Steps (QC): 88 Balance Picking up an Object (QC): 88 ADL-Treatment Eating (QC): 2 (per clinical judgment) Oral Hygiene (QC): 3 Shower/Bathe Self (QC): 3 Upper Body Dressing (QC): 3 Lower Body Dressing (QC): 2 On/Off Footwear (QC): 3 Toileting Hygiene (QC): 1 Toilet Transfer (QC): 1 Assessment/Plan Assessment and Plan Assess & Plan/Chief Complaint Assessment: Status post right hip fracture with post op complication of acute respiratory failure due to PNA requiring intubation Dementia TIA history Smoker Hypertension Hyperlipidemia Chronic constipation BPH New urinary incontinence Diabetes mellitus Rectal carcinoma s/p radiation only not tolerated well via [facility] Anemia s/p transfusions of 2 units of blood KATH on admit [place] cath in place Neuropathy Plan: PT OT Pain control Monitor closely 01/29/2022: Monitor hemoglobin Pain control Improve transfers and strengthening to help when he returns home on hospice 01/30/2022: Much improved Continue aggressive rehab in order to return back home to hospice 01/31/2022: Much improved Completed antibiotic 02/01/2022: Monitor closely Supportive care 02/02/2022: Supportive care Increase oral nutrition (1) Closed right hip fracture Status: Acute (2) Diabetes mellitus Status: Chronic (3) Dementia Status: Chronic (4) Hypertension (5) BPH (benign prostatic hyperplasia) Status: Chronic (6) DVT prophylaxis Status: Acute (7) Acute kidney injury superimposed on chronic kidney disease (8) Primary hypertension (9) Mixed hyperlipidemia (10) Aortic regurgitation (11) Pulmonary hypertension (12) Smoker (13) Hyperlipidemia (14) Frailty LENNY CAVANAUGH DO Feb 02, 2022 07:35
[2022-02-02] MEDS: PANTOPRAZOLE 20 MG TABLET (PROTONIX) PO SCH (08:26)
[2022-02-02] MEDS: LORATADINE (CLARITIN) 10 MG TAB PO SCH (08:26)
[2022-02-02] MEDS: LOSARTAN 100 MG (COZAAR) TABLET PO SCH (08:27)
[2022-02-02] MEDS: PREGABALIN 25 MG (LYRICA) CAPSULE PO SCH ×2 (08:27→21:30)
[2022-02-02] MEDS: eZETimibe 10 MG (ZETIA) TABLET PO SCH (08:27)
[2022-02-02] MEDS: TAMSULOSIN 0.4 MG (FLOMAX) CAP PO SCH (08:27)
[2022-02-02] MEDS: tadalafiL 5 MG TABLET (NON-FORMULARY) PO SCH (08:27)
[2022-02-02] MEDS: VITAMIN D3 25 MCG (1,000 UNITS) TABLET PO SCH (08:27)
[2022-02-02] MEDS: SENNA W/DOCUSATE (SENOKOT S) TABLET PO SCH ×2 (08:27→21:30)
[2022-02-02] MEDS: polyethylene glycoL POWDER 17 GM (MIRALAX) PACK PO SCH ×2 (09:23→21:30)
[2022-02-02] MEDS: DOCUSATE SODIUM 100 MG (COLACE) CAP PO SCH ×2 (09:23→21:30)
[2022-02-02] MEDS: PSEUDOEPHEDRINE HCL 30 MG (SUDAFED) TAB PO SCH ×2 (09:29→21:30)
[2022-02-02] MEDS: MICONAZOLE 2% POWDER (DESENEX AF) 90 GM TOP SCH ×2 (09:29→21:30)
[2022-02-02] MEDS: HYDROcodone/APAP 5 MG/325 MG (LORTAB) TAB PO PRN (12:40)
[2022-02-02] MEDS: amLODIPine 5 MG (NORVASC) TAB PO SCH (16:31)
[2022-02-02] MEDS: SERTRALINE 100 MG (ZOLOFT) TAB PO SCH (16:31)
[2022-02-02 20:31] VITALS: BP 130/74
[2022-02-02] MEDS: ALPRAZolam 0.5 MG (XANAX) TAB PO SCH (21:29)
[2022-02-02] MEDS: MIRABEGRON 25 MG TAB (MYRBETRIQ) PO SCH (21:30)
[2022-02-02] MEDS: NIACIN ER (NIASPAN) 500 MG TAB PO SCH (21:30)
[2022-02-02] MEDS: TERAZOSIN 1 MG CAP (HYTRIN) PO SCH (21:30)
[2022-02-03 05:46] LABS: BASOPHILS # (AUTO) 0.1 10^3/uL (0.0-0.1); BASOPHILS % (AUTO) 0 % (0-10); EOSINOPHILS # (AUTO) 0.1 10^3/uL (0.0-0.3); EOSINOPHILS % (AUTO) 1 % (0-10); HEMATOCRIT 26 % (40-54); HEMOGLOBIN 8.5 g/dL (13.3-17.7); LYMPHOCYTES # (AUTO) 0.9 10^3/uL (1.0-4.0); LYMPHOCYTES % (AUTO) 7 % (12-44); MEAN CORPUSCULAR HEMOGLOBIN 30 pg (25-34); MEAN CORPUSCULAR HGB CONC 33 g/dL (32-36); MEAN CORPUSCULAR VOLUME 89 fL (80-99); MEAN PLATELET VOLUME 9.6 fL (9.0-12.2); MONOCYTES # (AUTO) 1.4 10^3/uL (0.0-1.0); MONOCYTES % (AUTO) 11 % (0-12); NEUTROPHILS # (AUTO) 10.2 10^3/uL (1.8-7.8); NEUTROPHILS % (AUTO) 78 % (42-75); PLATELET COUNT 626 10^3/uL (130-400); WHITE BLOOD COUNT 13.1 10^3/uL (4.3-11.0)
--- NOTE | 2022-02-03 05:48 | PM&R Progress Note ---
Subjective HPI/CC On Admission Date Seen by Provider: Feb 03, 2022 Time Seen by Provider: 09:30 Subjective/Events-last exam 02/03/2022: Orthostasis reported when he stood up Monitoring closely Labs reviewed, nonspecific elevated wbc at 13k No falls Eating a bit better but not by much 02/02/2022: Patient doing well overall at bedside No concerns at this time Improved appetite 02/01/2022: Doing well at bedside Eating minimally No falls No pain reported 01/31/2022: Dramatic improvement at bedside No concerns Voiding well Hemoglobin improved Completed antibiotic 01/30/2022: Patient doing much better Sitting up in chair today Pain is improved No major concerns We will check labs tomorrow 01/29/2022: Pt is doing pretty well Blood sugar was 173 last night and 111 today Doesn't eat much Oriented x2 Pain pill taken which helps Incontinent of loose stools so holding laxative Crushing meds help Review of Systems General: Fatigue, Malaise Musculoskeletal: leg pain Neurological: Confusion Objective Exam Vital Signs Vital Signs Date Time Temp Pulse Resp B/P (MAP) Pulse Ox O2 Delivery O2 Flow Rate FiO2 02/03/22 23:05 37.6 02/03/22 22:26 91 16 134/60 (84) 94 Nasal Cannula 2.00 Capillary Refill : General Appearance: No Apparent Distress, WD/WN, Chronically ill, Thin HEENT: PERRL/EOMI, Normal ENT Inspection, Pharynx Normal Neck: Full Range of Motion, Normal Inspection, Non Tender, Supple, Carotid Bruit Respiratory: Chest Non Tender, Lungs Clear, Normal Breath Sounds, No Accessory Muscle Use, No Respiratory Distress, Decreased Breath Sounds Cardiovascular: Regular Rate, Rhythm, No Edema, No Gallop, No JVD, No Murmur, Normal Peripheral Pulses Gastrointestinal: Normal Bowel Sounds, No Organomegaly, No Pulsatile Mass, Non Tender, Soft Back: Normal Inspection, No CVA Tenderness, No Vertebral Tenderness Extremity: Normal Capillary Refill, Normal Inspection, Normal Range of Motion, Non Tender, No Calf Tenderness, No Pedal Edema Neurologic/Psychiatric: Alert, assistant general manager II-XII Norm as Tested, Abnormal Gait, Depressed Affect, Disoriented, Motor Weakness (generalized but specifically right leg) Skin: Normal Color, Warm/Dry Lymphatic: No Adenopathy Results/Procedures Lab Laboratory Tests 02/03/22 05:38 Patient resulted labs reviewed. FIM Transfers Therapy Code Descriptions/Definitions Functional [place] Measure: 0=Not Assessed/NA 4=Minimal Assistance 1=Total Assistance 5=Supervision or Setup 2=Maximal Assistance 6=Modified [place] 3=Moderate Assistance 7=Complete IndependenceSCALE: Activities may be completed with or without assistive devices. 1-Isrtptofwx-lxvctqn completes the activity by him/herself with no assistance from a helper. 5-Set-up or Clean-up Assistance-helper sets up or cleans up; patient completes activity. [place] assists only prior to or following the activity. 4-Supervision or Touching Assistance-helper provides verbal cues and/or touching/steadying and/or contact guard assistance as patient completes activity. Assistance may be provided throughout the activity or intermittently. 3-Partial/Moderate Assistance-helper does LESS THAN HALF the effort. [place] lifts, holds or supports trunk or limbs, but provides less than half the effort. 2-Substantial/Maximal Assistance-helper does MORE THAN HALF the effort. [place] lifts or holds trunk or limbs and provides more than half the effort. 6-Zmpwmjmzs-ndhrnv does ALL the effort. Patient does none of the effort to complete the activity. Or, the assistance of 2 or more helpers is required for the patient to complete the activity. If activity was not attempted, code reason: 7-Patient Refused. 9-Not Applicable-not attempted and the patient did not perform the activity before the current illness, exacerbation or injury. 10-Not Attempted due to Environmental Limitations-(lack of equipment, weather restraints, etc.). 88-Not Attempted due to Medical Conditions or Safety Concerns. Roll Left to Right (QC): 3 Sit to Lying (QC): 2 Sit to Stand (QC): 3 Chair/Anr-hw-Hvltg Xfer(QC): 2 Car Transfer (QC): 2 Gait Training Does the Patient Walk?: Yes Distance: 8 feet x 2 Walk 10 feet (QC): 88 Walk 50 ft with 2 Turns(QC): 88 Walk 150 ft (QC): 88 Walking 10ft/uneven surface-QC: 88 Gait Persons Needed: 2 Gait Assistive Device: Parallel Bars Wheelchair Training Does the Pt Use a Wheelchair?: Yes Distance: 50 Wheel 50 ft with 2 turns (QC): 4 Wheel 150 ft (QC): 88 Type of Wheelchair: Manual Stair Training #of Steps: 0 1 Step (curb) (QC): 88 4 Steps (QC): 88 12 Steps (QC): 88 Balance Picking up an Object (QC): 88 ADL-Treatment Eating (QC): 2 (per clinical judgment) Oral Hygiene (QC): 3 Shower/Bathe Self (QC): 3 Upper Body Dressing (QC): 3 Lower Body Dressing (QC): 2 On/Off Footwear (QC): 3 Toileting Hygiene (QC): 1 Toilet Transfer (QC): 1 Assessment/Plan Assessment and Plan Assess & Plan/Chief Complaint Assessment: Status post right hip fracture with post op complication of acute respiratory failure due to PNA requiring intubation Dementia TIA history Smoker Hypertension Hyperlipidemia Chronic constipation BPH New urinary incontinence Diabetes mellitus Rectal carcinoma s/p radiation only not tolerated well via [facility] Anemia s/p transfusions of 2 units of blood KATH on admit [place] cath in place Neuropathy Plan: PT OT Pain control Monitor closely 01/29/2022: Monitor hemoglobin Pain control Improve transfers and strengthening to help when he returns home on hospice 01/30/2022: Much improved Continue aggressive rehab in order to return back home to hospice 01/31/2022: Much improved Completed antibiotic 02/01/2022: Monitor closely Supportive care 02/02/2022: Supportive care Increase oral nutrition 02/03/2022: Continue aggressive rehab DC on hospice (1) Closed right hip fracture Status: Acute (2) Diabetes mellitus Status: Chronic (3) Dementia Status: Chronic (4) Hypertension (5) BPH (benign prostatic hyperplasia) Status: Chronic (6) DVT prophylaxis Status: Acute (7) Acute kidney injury superimposed on chronic kidney disease (8) Primary hypertension (9) Mixed hyperlipidemia (10) Aortic regurgitation (11) Pulmonary hypertension (12) Smoker (13) Hyperlipidemia (14) Frailty LENNY CAVANAUGH DO Feb 03, 2022 05:48
[2022-02-03 06:05] LABS: ALBUMIN 3.1 GM/DL (3.2-4.5); POTASSIUM 3.4 MMOL/L (3.6-5.0)
[2022-02-03 06:06] LABS: CALCIUM 9.1 MG/DL (8.5-10.1)
[2022-02-03 06:07] LABS: TOTAL PROTEIN 6.1 GM/DL (6.4-8.2)
[2022-02-03 06:09] LABS: BILIRUBIN,TOTAL 1.2 MG/DL (0.1-1.0)
[2022-02-03 06:11] LABS: CREATININE SERUM 1.34 MG/DL (0.60-1.30)
[2022-02-03] MEDS ORDERED: KCL 10 MEQ TAB (MICRO K) PO SCH (07:00)
[2022-02-03] MEDS: inSUlin ASPART (NovoLOG) 1 UNIT/0.01 ML (CHARGE PER UNIT) SC SCH ×4 (07:20→20:41)
[2022-02-03 07:42] VITALS: BP 153/73
--- NOTE | 2022-02-03 08:41 | Occupational Ther Daily Note ---
OT Current Status-Daily Note Subjective Pt very drowsy, difficulty maintaining attention. Denies pain, however grimaces in pain with all movement. Appearance Pt returned to supine per nursing request. All needs within reach at OT departure. Mental Status/Objective Patient Orientation: Person Attachments: IV, Oxygen ADL-Treatment Therapy Code Descriptions/Definitions Functional [place] Measure: 0=Not Assessed/NA 4=Minimal Assistance 1=Total Assistance 5=Supervision or Setup 2=Maximal Assistance 6=Modified Elma 3=Moderate Assistance 7=Complete IndependenceSCALE: Activities may be completed with or without assistive devices. 3-Rxjgiwcasx-tdyfovy completes the activity by him/herself with no assistance from a helper. 5-Set-up or Clean-up Assistance-helper sets up or cleans up; patient completes activity. Murdock assists only prior to or following the activity. 4-Supervision or Touching Assistance-helper provides verbal cues and/or touching/steadying and/or contact guard assistance as patient completes activity. Assistance may be provided throughout the activity or intermittently. 3-Partial/Moderate Assistance-helper does LESS THAN HALF the effort. Murdock lifts, holds or supports trunk or limbs, but provides less than half the effort. 2-Substantial/Maximal Assistance-helper does MORE THAN HALF the effort. [place] lifts or holds trunk or limbs and provides more than half the effort. 0-Ylvbpmodo-nlqnli does ALL the effort. Patient does none of the effort to complete the activity. Or, the assistance of 2 or more helpers is required for the patient to complete the activity. If activity was not attempted, code reason: 7-Patient Refused. 9-Not Applicable-not attempted and the patient did not perform the activity before the current illness, exacerbation or injury. 10-Not Attempted due to Environmental Limitations-(lack of equipment, weather restraints, etc.). 88-Not Attempted due to Medical Conditions or Safety Concerns. Eating (QC): 3 Upper Body Dressing (QC): 2 Lower Body Dressing (QC): 1 On/Off Footwear: 1 Toilet Transfer (QC): 1 Pt reclined in bed attempting to eat breakfast at OT arrival. Intermittent min a to bring fork to mouth secondary to fatigue. Pt declines eating more than just 2 bites. Max a to sit EOB. Step by step cues for all transfers. Fair-poor sitting balance; requires 1-2 UE support to maintain balance. Intermittent min a needed to maintain upright posture as pt listing posteriorly. Partial sponge bath performed seated EOB. Verbal and visual cues to initiate all steps. Pt able to wash under bilateral arms yet requires balance assist as mentioned previously. Max a to don shirt as pt required assist to thread BUE's and pull down around torso. Sit<>stand x3 from elevated bed with max a. Flexed posture, needing verbal cues and physical assistance to shift weight forward. Pt too unsteady to take steps at this time. Dependent to squat pivot to w/c. Upon sitting in chair, pt c/o dizziness. BP: 88/55, variable HR from 105-139 bpm. Oxygen fluctuating from 87-95%, 3L O2. Cues for PLB. RN notified and request pt return to supine/trendelenburg. In supine, BP: 105/58, HR 114-125 bpm. Shorts donned at bed level. Dependent to thread BLE's and roll R/L for clothing management. Immediately following laying down, pt falling asleep. Education OT Patient Education: Correct positioning, Purpose of tx/functional activities, Reviewed precautions, Rehab process, Safety issues, Transfer techniques, W/C management Teaching Recipient: Patient Teaching Methods: Demonstration, Discussion Response to Teaching: Unable to Return Demonstration, Unable to Comprehend, Reinforcement Needed OT Short Term Goals Short Term Goals Time Frame: Feb 11, 2022 Eatin Oral hygiene: 3 Toileting hygiene: 3 Shower/bathe self: 2 Upper body dressin Lower body dressin Putting on/taking off footwear: 2 OT Halfway Goals Industrial Health And Safety Professor Goals Time Frame: Feb 25, 2022 Eating (QC): 5 Oral Hygiene (QC): 5 Toileting Hygiene (QC): 4 Shower/Bathe Self (QC): 3 Upper Body Dressing (QC): 4 Lower Body Dressing (QC): 3 On/Off Footwear (QC): 2 1=Demonstrate adherence to instructed precautions during ADL tasks. 2=Patient will verbalize/demonstrate understanding of assistive devices/modifications for ADL. 3=Patient will improve strength/tolerance for activity to enable patient to perform ADL's. OT Education/Plan Problem List/Assessment Assessment: Decreased Activ Tolerance, Decreased Safety Aware, Decreased UE Strength, Dependent Transfers, Impaired Bed Mobility, Impaired Cognition, Impaired Funct Balance, Impaired Self-Care Skills Discharge Recommendations Plan/Recommendations: Continue POC Therapy Discharge Recommendati: Post Acute OT Treatment Plan/Plan of Care Treatment,Training & Education: Yes Patient would benefit from OT for education, treatment and training to promote independence in ADL's, mobility, safety and/or upper extremity function for ADL's. Plan of Care: ADL Retraining, Caregiver Training, Cognitive Retraining, Concurrent Therapy, Functional Mobility, Group Exercise/Act as Ind, UE Funct Exercise/Act, W/C Management Training Treatment Duration: Feb 25, 2022 Frequency: At least 5 of 7 days/Wk (IRF) Estimated Hrs Per Day: 1.5 hours per day (75-90 min/day) Rehab Potential: Poor Time/GCodes Start Time: 07:35 Stop Time: 08:35 Total Time Billed (hr/min): 60 Billed Treatment Time 1 visit ADL x4 Kayla Desai OT Feb 03, 2022 08:41
[2022-02-03] MEDS: LOSARTAN 100 MG (COZAAR) TABLET PO SCH (09:00)
[2022-02-03] MEDS: tadalafiL 5 MG TABLET (NON-FORMULARY) PO SCH (09:00)
[2022-02-03] MEDS: polyethylene glycoL POWDER 17 GM (MIRALAX) PACK PO SCH ×2 (09:00→20:39)
[2022-02-03] MEDS: SENNA W/DOCUSATE (SENOKOT S) TABLET PO SCH ×2 (09:00→20:41)
--- NOTE | 2022-02-03 09:28 | Progress Note - Ortho ---
Progress Note Subjective Date of Exam 02/03/22 Chief Complaint POD#11 Cemented bipolar hemiarthroplasty right hip for a nondisplaced subcapital fracture HPI/Events since last exam Mr. Fajardo is now 11 days postop cemented bipolar hemiarthroplasty right hip for a nondisplaced subcapital fracture. He has no hip complaints. When I saw him he was lying in bed Review of Systems Reviewed and no additions or changes Allergies: Coded Allergies: Xskbfvw-YNN-ZvN Reductase Inhibitor (Verified Allergy, Unknown, 01/21/22) Home Meds Reported Medications Omeprazole (Omeprazole) 20 Mg Capsule.dr, 20 MG PO DAILY, CAP 01/22/22 Tadalafil (Tadalafil) 5 Mg Tablet, 5 MG PO DAILY, TAB 01/22/22 Pregabalin (Pregabalin) 25 Mg Capsule, 25 MG PO BID, CAP 01/22/22 Multivitamin (Multivitamin) 1 Each Tablet, 1 EACH PO DAILY, TAB 01/22/22 Cyanocobalamin (Vitamin B-12) (Vitamin B-12) 2,500 Mcg Tab.subl, 2500 MCG SL DAILY, TAB 01/21/22 Zinc Gluconate (Zinc) 50 Mg Tablet, 50 MG PO DAILY, TAB 01/21/22 Ascorbate Calcium (Vitamin C) 500 Mg Tablet, 500 MG PO DAILY, TAB 01/21/22 Mirabegron (Myrbetriq) 50 Mg Tab.er.24h, 50 MG PO HS, TAB 01/21/22 Clopidogrel Bisulfate (Clopidogrel) 75 Mg Tablet, 75 MG PO 1500, TAB 01/21/22 Sertraline HCl (Sertraline HCl) 100 Mg Tablet, 100 MG PO 1500, TAB 01/21/22 Cholecalciferol (Vitamin D3) (Vitamin D3) 25 Mcg (1000 Unit) Tablet, 25 MCG PO DAILY, TAB 01/21/22 Tamsulosin HCl (Flomax) 0.4 Mg Cap, 0.4 MG PO DAILY, CAP 03/28/19 Ezetimibe (Zetia) 10 Mg Tablet, 10 MG PO DAILY, TAB 03/28/19 Cetirizine HCl/Pseudoephedrine (Cetirizine-Pse ER 5-120 mg Tab) 5 Mg-120 Mg Tab.er.12h, 1 TAB PO Q12H, TAB 03/28/19 Aspirin/Acetaminophen/Caffeine (Excedrin Extra Strength Caplet) 1 Each Tablet, 1-2 TAB PO BID PRN for PAIN-MILD, TAB 03/28/19 [place] Fruit/Zinc [place] ([place] 450 mg Capsule) 450 Mg-15 Mg Capsul e, 1 CAP PO DAILY, CAP 03/28/19 Niacin (Inositol Niacinate) (Niacin 500 mg Capsule) 500 Mg Capsule, 500 MG PO HS, CAP 03/28/19 Amlodipine Besylate (Amlodipine Besylate) 5 Mg Tablet, 5 MG PO 1500, TAB 03/28/19 Glipizide (Glipizide) 5 Mg Tablet, 5 MG PO DAILY, TAB 03/28/19 Metformin HCl (Metformin HCl) 1,000 Mg Tablet, 1000 MG PO BID, TAB 03/28/19 Terazosin HCl (Terazosin HCl) 2 Mg Capsule, 2 MG PO HS, CAP 03/28/19 Losartan Potassium (Losartan Potassium) 100 Mg Tablet, 100 MG PO DAILY, TAB 03/28/19 Alprazolam (Alprazolam) 0.5 Mg Tablet, 0.5 MG PO HS, TAB 03/28/19 Objective Exam Constitutional: [] HEENT: [] Neck: [] Cardiovascular: [] Respiratory: [] Gastrointestinal: [] Genitourinary: [] Skin: [] Back/Spine: [] Extremities: [Dressing intact right hip. Dressing is being changed every other day. No calf tenderness negative Homans. No weakness on dorsiflexion plantarflexion of foot and ankle. Normal sensation of the foot and toes with good cap refill and good pulses. Good position of the right leg compared to the left] Neurologic: [] Psychiatric: [] Hematologic/lymphatic/immunologic: [] Vital Signs Vital Signs Date Time Temp Pulse Resp B/P (MAP) Pulse Ox O2 Delivery O2 Flow Rate FiO2 02/03/22 07:42 36.4 123 22 153/73 (99) 90 Nasal Cannula 2.50 02/02/22 21:30 91 Nasal Cannula 1.50 02/02/22 20:31 37.7 114 18 130/74 (92) 91 Nasal Cannula 1.50 02/02/22 09:36 Nasal Cannula 1.50 Lab Results Laboratory Tests 02/02/22 10:47: Glucometer 313H 02/02/22 15:19: Glucometer 264H 02/02/22 20:10: Glucometer 268H 02/03/22 05:38: White Blood Count 13.1H, Red Blood Count 2.88L, Hemoglobin 8.5L, Hematocrit 26L, Mean Corpuscular Volume 89, Mean Corpuscular Hemoglobin 30, Mean Corpuscular Hemoglobin Concent 33, Red Cell Distribution Width 15.3H, Platelet Count 626H, Mean Platelet Volume 9.6, Immature Granulocyte % (Auto) 3, Neutrophils (%) (Auto) 78H, Lymphocytes (%) (Auto) 7L, Monocytes (%) (Auto) 11, Eosinophils (%) (Auto) 1, Basophils (%) (Auto) 0, Neutrophils # (Auto) 10.2H, Lymphocytes # (Auto) 0.9L, Monocytes # (Auto) 1.4H, Eosinophils # (Auto) 0.1, Basophils # (Auto) 0.1, Immature Granulocyte # (Auto) 0.4H, Sodium Level 139, Potassium Level 3.4L, Chloride Level 106, Carbon Dioxide Level 20L, Anion Gap 13, Blood Urea Nitrogen 16, Creatinine 1.34H, Estimat Glomerular Filtration Rate 55, BUN/Creatinine Ratio 12, Glucose Level 325H, Calcium Level 9.1, Corrected Calcium 9.8, Total Bilirubin 1.2H, Aspartate Amino Transf (AST/SGOT) 19, Alanine Aminotransferase (ALT/SGPT) 37, Alkaline Phosphatase 89, Total Protein 6.1L, Albumin 3.1L 02/03/22 05:47: Glucometer 300H Assessment and Plan Assessment 11 days postop Problem List Unchanged Plan Continue rehab walker ambulation weightbearing as tolerated on the right Final Diagonsis Nondisplaced subcapital fracture right hip status post cemented bipolar hemiarthroplasty Level of the visit: Level 3 TEMI CHAVEZ MD Feb 03, 2022 09:28
--- NOTE | 2022-02-03 11:08 | Physical Therapy Daily Note ---
PT Daily Note-Current Subjective Patient lying supine in bed upon PT arrival, agreeable to treatment. Nurse reports BP dropped quickly during OT treatment and they have been monitoring since that time. Mental Status Patient Orientation: Person Attachments: Oxygen Transfers SCALE: Activities may be completed with or without assistive devices. 3-Jrmdkbtrdl-cfihtgz completes the activity by him/herself with no assistance from a helper. 5-Set-up or Clean-up Assistance-helper sets up or cleans up; patient completes activity. Baxter assists only prior to or following the activity. 4-Supervision or Touching Assistance-helper provides verbal cues and/or touching/steadying and/or contact guard assistance as patient completes activity. Assistance may be provided throughout the activity or intermittently. 3-Partial/Moderate Assistance-helper does LESS THAN HALF the effort. Baxter lifts, holds or supports trunk or limbs, but provides less than half the effort. 2-Substantial/Maximal Assistance-helper does MORE THAN HALF the effort. [place] lifts or holds trunk or limbs and provides more than half the effort. 1-Nvngwbnir-wcnlpg does ALL the effort. Patient does none of the effort to complete the activity. Or, the assistance of 2 or more helpers is required for the patient to complete the activity. If activity was not attempted, code reason: 7-Patient Refused. 9-Not Applicable-not attempted and the patient did not perform the activity before the current illness, exacerbation or injury. 10-Not Attempted due to Environmental Limitations-(lack of equipment, weather restraints, etc.). 88-Not Attempted due to Medical Conditions or Safety Concerns. Roll Left & Right (QC): 3 Sit to Lying (QC): 2 Lying to Sitting/Side of Bed(Q: 2 Sit to Stand (QC): 3 Chair/Azl-zs-Lvysy Xfer(QC): 2 Weight Bearing Right Lower Extremity: Right Weight Bearing/Tolerated Left Lower Extremity: Left Full Weight Bearing Gait Training Does the Patient Walk?: Yes Distance: 8 feet x 2 Gait Persons Needed: 2 Gait Assistive Device: Parallel Bars Exercises Supine Ex: Ankle pumps, Quad Set, Glut sets, Short Arc Quads, Straight leg raise, Hip abd/add Assessment Current Status: Poor Progress Patient BPs were as follows: Supine 133/64; Sitting 112/60, Sitting 5 minutes 131/63, Sitting 7 minutes 129/67. Patient reports some "light headedness", however denies dizziness or feeling like he might pass out. Patient performs LE therapeutic exercise as listed above. Patient performs bed mobility with minimal improvement, however requires frequent verbal cues. Patient performs all bed mobility and transfer with mod to max A. Patient ambulates 8 feet x 2 in the parallel bars with max A from PT and tech pushing the w/c. Patient opened the blister on his right hypothenar eminence during gait. Nurse notified, wound dressed by nursing and parallel bars sanitized appropriately. Patient in w/c post treatment with all needs met, nursing notified, call light in hand. PT Detention Goals Fashion Show Director Goals PT Detention Goals Time Frame: Feb 14, 2022 Roll Left & Right (QC): 4 Sit to Lying (QC): 4 Lying-Sitting on Side/Bed(QC): 4 Sit to Stand (QC): 4 Chair/Eoz-bc-Zfhwe Xfer(QC): 4 Toilet Transfer (QC): 4 Car Transfer (QC): 4 Does the Patient Walk: Yes Walk 10 feet (QC): 4 Walk 50ft with 2 Turns (QC): 4 Walk 150 ft (QC): 3 Walking 10ft on Uneven Surface: 4 1 Step (curb) (QC): 2 4 Steps (QC): 2 12 Steps (QC): 88 Picking up an Object (QC): 4 Does the Pt use WC or Scooter?: Yes Wheel 50 feet with 2 turns (QC: 5 Type: Manual Wheel 150 feet: 5 Type: Manual PT Plan Treatment/Plan Treatment Plan: Continue Plan of Care Treatment Plan: Bed Mobility, Education, Functional Activity Edmund, Functional Strength, Group Therapy, Gait, Safety, Therapeutic Exercise, Transfers Treatment Duration: Mar 07, 2022 Frequency: At least 5 of 7 days/Wk (IRF) Estimated Hrs Per Day: 1.5 hours per day Patient and/or Family Agrees t: Yes Safety Risks/Education Patient Education: Gait Training, Transfer Techniques, Reviewed Precautions, Safety Issues Teaching Recipient: Patient Teaching Methods: Demonstration, Discussion Response to Teaching: Reinforcement Needed Time/GCodes Time In: 900 Time Out: 1000 Total Billed Treatment Time: 60 Total Billed Treatment Visit, Gait, Ex, FA (30) SIS GOMES PT Feb 03, 2022 11:08
[2022-02-03] MEDS: eZETimibe 10 MG (ZETIA) TABLET PO SCH (11:53)
[2022-02-03] MEDS: LORATADINE (CLARITIN) 10 MG TAB PO SCH (11:53)
[2022-02-03] MEDS: VITAMIN D3 25 MCG (1,000 UNITS) TABLET PO SCH (11:53)
[2022-02-03] MEDS: TAMSULOSIN 0.4 MG (FLOMAX) CAP PO SCH (11:53)
[2022-02-03] MEDS: DOCUSATE SODIUM 100 MG (COLACE) CAP PO SCH ×2 (11:53→20:39)
[2022-02-03] MEDS: PREGABALIN 25 MG (LYRICA) CAPSULE PO SCH ×2 (11:54→20:40)
[2022-02-03] MEDS: PSEUDOEPHEDRINE HCL 30 MG (SUDAFED) TAB PO SCH ×2 (11:54→20:40)
[2022-02-03] MEDS: PANTOPRAZOLE 20 MG TABLET (PROTONIX) PO SCH (11:54)
[2022-02-03] MEDS: MICONAZOLE 2% POWDER (DESENEX AF) 90 GM TOP SCH ×2 (11:55→20:41)
--- NOTE | 2022-02-03 12:30 | Speech Therapy Daily Note ---
Speech Daily Progress Note Subjective Date Seen by Provider: Feb 03, 2022 Time Seen by Provider: 10:15 The patient was seated upright in his wheelchair, awake and alert upon entrance to his room by the clinician. The patient greeted the clinician appropriately and was agreeable to participation in the dysphagia treatment session. The patient will be discharged from cognitive skilled therapy due to lack of progression and baseline cognitive status (dementia). Objective The patient consumed waffles (cut into pieces with syrup), cream of wheat, and water via straw. The patient self-fed on this date. Overt s/s of suspected aspiration were not demonstrated throughout the treatment session. The clinician discussed the patient's recommendations with the RN, the patient, and the patient's following the treatment session. Recommendations: - Dysphagia three consistency diet with thin liquids, as tolerated. - Fully upright and alert for P.O. intake. - 1:1 supervision and feeding assistance for P.O. intake. - Small bites and sips. - Crush medication and place in puree for administration. - Monitor for s/s of suspected aspiration with P.O. intake. If demonstrated, contact speech pathology. Assessment Assessment Current Status: Good Progress Treatment Plan Continue Plan of Care Speech Short Term Goals Short Term Goals Short Term Goals 1. The patient, staff, and family members will follow safe swallowing strategies with 90% accuracy, independently. 2. The patient will respond appropriately to simple yes and no questions with 75% accuracy and mild clinician verbal cueing. Speech Microbiology Manager Goals [facility] Goals 1. The patient will tolerate the least restrictive diet consistency without s/s of suspected aspiration. 2. The patient will demonstrate an improvement in cognitive linguistic skills for safe discharge to the least restrictive environment. Speech-Plan Treatment Plan Speech Therapy Treatment Plan: Continue Plan of Care Treatment Duration: Feb 12, 2022 Frequency: Modified Program (IRF) Estimated Hrs Per Day: .5 hour per day Rehab Potential: Poor Safety Risks/Education Teaching Recipient: Patient, Significant Other Teaching Methods: Discussion Response to Teaching: Verbalize Understanding Education Topics Provided: Results, Recommendations, Plan of Care, S/S of Suspected Aspiration Time Speech Therapy Time In: 10:15 Speech Therapy Time Out: 10:45 Total Billed Time: 30 Billed Treatment Time 1VINEET GINA Meza Feb 03, 2022 12:30
--- NOTE | 2022-02-03 14:42 | Therapy Group Daily Note ---
Therapy Daily Group Note Patient Education Topic Exercises, Other List Below (Pain Management) Exercises LE Seated Exercise, UE Exercise Session Ratio (pt:therapist): 3:1 Goal of Session: Education on ARU Expectations, UE/LE Strengthing, Other (list) (Pain Management) Goal Met for this Session: No Pt Benefit of Group: Contributions to Others, F/U Use of Strategies @Home, Increased Functional Safety, Increased Functional Strength, Improved Cognition, Recognition of Peers, Socialization Other/Notes Pt was propelled to Pending sale to [facility] for OT/PT group. Group consisted of introductions (name, place living), socialization, B UE/LE seated exercises, education on pain management and exercise. Pt introduced self appropriately and actively listened to peers for part of Group. Pt fell asleep multiple times during Group. Pt would stay awake for approx. 2 mins. then would fall asleep again. Pt was very drowsy and difficult to keep awake during tx. After therapy, pt was propelled back to room and transferred back to Supine in bed, Sp present with call light/phone in reach. All needs met in room. Start Time: 13:00 Stop Time: 14:00 Total Billed Treatment Time: 60 Total Billed Treatment 1, GRP STEPHAN SUN DOCUMENT PREPARER MICROFILMING Feb 03, 2022 14:41
[2022-02-03] MEDS: amLODIPine 5 MG (NORVASC) TAB PO SCH (15:00)
[2022-02-03] MEDS: SERTRALINE 100 MG (ZOLOFT) TAB PO SCH (17:17)
[2022-02-03 20:18] VITALS: BP 170/81
[2022-02-03] MEDS: TERAZOSIN 1 MG CAP (HYTRIN) PO SCH (20:40)
[2022-02-03] MEDS: NIACIN ER (NIASPAN) 500 MG TAB PO SCH (20:40)
[2022-02-03] MEDS: MIRABEGRON 25 MG TAB (MYRBETRIQ) PO SCH (20:40)
[2022-02-03] MEDS: ALPRAZolam 0.5 MG (XANAX) TAB PO SCH (20:41)
[2022-02-03 20:59] VITALS: BP 152/74
[2022-02-03 21:18] VITALS: BP 145/72
[2022-02-03 22:26] VITALS: BP 134/60
[2022-02-03] MEDS: ACETAMINOPHEN 325 MG TABLET PO PRN (22:35)
--- NOTE | 2022-02-04 06:13 | PM&R Progress Note ---
Subjective HPI/CC On Admission Date Seen by Provider: Feb 04, 2022 Time Seen by Provider: 09:00 Subjective/Events-last exam 02/04/2022: Doing well Low grade fever noted Septic w/u ordered No major new issues 02/03/2022: Orthostasis reported when he stood up Monitoring closely Labs reviewed, nonspecific elevated wbc at 13k No falls Eating a bit better but not by much 02/02/2022: Patient doing well overall at bedside No concerns at this time Improved appetite 02/01/2022: Doing well at bedside Eating minimally No falls No pain reported 01/31/2022: Dramatic improvement at bedside No concerns Voiding well Hemoglobin improved Completed antibiotic 01/30/2022: Patient doing much better Sitting up in chair today Pain is improved No major concerns We will check labs tomorrow 01/29/2022: Pt is doing pretty well Blood sugar was 173 last night and 111 today Doesn't eat much Oriented x2 Pain pill taken which helps Incontinent of loose stools so holding laxative Crushing meds help Review of Systems General: Fatigue, Malaise Pulmonary: Dyspnea Objective Exam Vital Signs Vital Signs Date Time Temp Pulse Resp B/P (MAP) Pulse Ox O2 Delivery O2 Flow Rate FiO2 02/04/22 21:06 37.3 70 20 126/79 (95) 94 Nasal Cannula 2.00 Capillary Refill : General Appearance: No Apparent Distress, WD/WN, Chronically ill, Thin HEENT: PERRL/EOMI, Normal ENT Inspection, Pharynx Normal Neck: Full Range of Motion, Normal Inspection, Non Tender, Supple, Carotid Bruit Respiratory: Chest Non Tender, Lungs Clear, Normal Breath Sounds, No Accessory Muscle Use, No Respiratory Distress, Decreased Breath Sounds Cardiovascular: Regular Rate, Rhythm, No Edema, No Gallop, No JVD, No Murmur, Normal Peripheral Pulses Gastrointestinal: Normal Bowel Sounds, No Organomegaly, No Pulsatile Mass, Non Tender, Soft Back: Normal Inspection, No CVA Tenderness, No Vertebral Tenderness Extremity: Normal Capillary Refill, Normal Inspection, Normal Range of Motion, Non Tender, No Calf Tenderness, No Pedal Edema Neurologic/Psychiatric: Alert, pocket closer II-XII Norm as Tested, Abnormal Gait, Depressed Affect, Disoriented, Motor Weakness (generalized but specifically right leg) Skin: Normal Color, Warm/Dry Lymphatic: No Adenopathy Results/Procedures Lab Laboratory Tests 02/04/22 10:50 Patient resulted labs reviewed. FIM Transfers Therapy Code Descriptions/Definitions Functional [place] Measure: 0=Not Assessed/NA 4=Minimal Assistance 1=Total Assistance 5=Supervision or Setup 2=Maximal Assistance 6=Modified [place] 3=Moderate Assistance 7=Complete IndependenceSCALE: Activities may be completed with or without assistive devices. 8-Ovhqkfjmdk-zpgqzgz completes the activity by him/herself with no assistance from a helper. 5-Set-up or Clean-up Assistance-helper sets up or cleans up; patient completes activity. [place] assists only prior to or following the activity. 4-Supervision or Touching Assistance-helper provides verbal cues and/or touching/steadying and/or contact guard assistance as patient completes activity. Assistance may be provided throughout the activity or intermittently. 3-Partial/Moderate Assistance-helper does LESS THAN HALF the effort. [place] lif ts, holds or supports trunk or limbs, but provides less than half the effort. 2-Substantial/Maximal Assistance-helper does MORE THAN HALF the effort. [place] lifts or holds trunk or limbs and provides more than half the effort. 3-Szlhkkmyi-phwrtx does ALL the effort. Patient does none of the effort to complete the activity. Or, the assistance of 2 or more helpers is required for the patient to complete the activity. If activity was not attempted, code reason: 7-Patient Refused. 9-Not Applicable-not attempted and the patient did not perform the activity before the current illness, exacerbation or injury. 10-Not Attempted due to Environmental Limitations-(lack of equipment, weather restraints, etc.). 88-Not Attempted due to Medical Conditions or Safety Concerns. Roll Left to Right (QC): 3 Sit to Lying (QC): 2 Sit to Stand (QC): 3 Chair/Ctk-jd-Wtcth Xfer(QC): 2 Car Transfer (QC): 2 Gait Training Does the Patient Walk?: Yes Distance: 8 feet x 2 Walk 10 feet (QC): 88 Walk 50 ft with 2 Turns(QC): 88 Walk 150 ft (QC): 88 Walking 10ft/uneven surface-QC: 88 Gait Persons Needed: 2 Gait Assistive Device: Parallel Bars Wheelchair Training Does the Pt Use a Wheelchair?: Yes Distance: 50 Wheel 50 ft with 2 turns (QC): 4 Wheel 150 ft (QC): 88 Type of Wheelchair: Manual Stair Training #of Steps: 0 1 Step (curb) (QC): 88 4 Steps (QC): 88 12 Steps (QC): 88 Balance Picking up an Object (QC): 88 ADL-Treatment Eating (QC): 3 Oral Hygiene (QC): 3 Shower/Bathe Self (QC): 3 Upper Body Dressing (QC): 2 Lower Body Dressing (QC): 1 On/Off Footwear (QC): 1 Toileting Hygiene (QC): 1 Toilet Transfer (QC): 1 Assessment/Plan Assessment and Plan Assess & Plan/Chief Complaint Assessment: Status post right hip fracture with post op complication of acute respiratory failure due to PNA requiring intubation Dementia TIA history Smoker Hypertension Hyperlipidemia Chronic constipation BPH New urinary incontinence Diabetes mellitus Rectal carcinoma s/p radiation only not tolerated well via [facility] Anemia s/p transfusions of 2 units of blood KATH on admit [place] cath in place Neuropathy Plan: PT OT Pain control Monitor closely 01/29/2022: Monitor hemoglobin Pain control Improve transfers and strengthening to help when he returns home on hospice 01/30/2022: Much improved Continue aggressive rehab in order to return back home to hospice Low grade fever prompting w/u 02/04/22 01/31/2022: Much improved Completed antibiotic 02/01/2022: Monitor closely Supportive care 02/02/2022: Supportive care Increase oral nutrition 02/03/2022: Continue aggressive rehab DC on hospice 02/04/2022: Monitor closely Supportive care (1) Closed right hip fracture Status: Acute (2) Diabetes mellitus Status: Chronic (3) Dementia Status: Chronic (4) Hypertension (5) BPH (benign prostatic hyperplasia) Status: Chronic (6) DVT prophylaxis Status: Acute (7) Acute kidney injury superimposed on chronic kidney disease (8) Primary hypertension (9) Mixed hyperlipidemia (10) Aortic regurgitation (11) Pulmonary hypertension (12) Smoker (13) Hyperlipidemia (14) Frailty LENYN CAVANAUGH DO Feb 04, 2022 06:13
[2022-02-04] MEDS: inSUlin ASPART (NovoLOG) 1 UNIT/0.01 ML (CHARGE PER UNIT) SC SCH ×4 (06:19→20:55)
[2022-02-04 07:38] VITALS: BP 127/78
[2022-02-04] MEDS: eZETimibe 10 MG (ZETIA) TABLET PO SCH (09:07)
[2022-02-04] MEDS: VITAMIN D3 25 MCG (1,000 UNITS) TABLET PO SCH (09:07)
[2022-02-04] MEDS: DOCUSATE SODIUM 100 MG (COLACE) CAP PO SCH ×2 (09:07→21:12)
[2022-02-04] MEDS: LOSARTAN 100 MG (COZAAR) TABLET PO SCH (09:07)
[2022-02-04] MEDS: PREGABALIN 25 MG (LYRICA) CAPSULE PO SCH ×2 (09:07→20:54)
[2022-02-04] MEDS: PSEUDOEPHEDRINE HCL 30 MG (SUDAFED) TAB PO SCH ×2 (09:08→20:54)
[2022-02-04] MEDS: LORATADINE (CLARITIN) 10 MG TAB PO SCH (09:08)
[2022-02-04] MEDS: TAMSULOSIN 0.4 MG (FLOMAX) CAP PO SCH (09:08)
[2022-02-04] MEDS: SENNA W/DOCUSATE (SENOKOT S) TABLET PO SCH ×2 (09:08→21:12)
[2022-02-04] MEDS: PANTOPRAZOLE 20 MG TABLET (PROTONIX) PO SCH (09:08)
[2022-02-04] MEDS: polyethylene glycoL POWDER 17 GM (MIRALAX) PACK PO SCH ×2 (09:09→21:12)
[2022-02-04] MEDS: tadalafiL 5 MG TABLET (NON-FORMULARY) PO SCH (09:09)
[2022-02-04] MEDS: MICONAZOLE 2% POWDER (DESENEX AF) 90 GM TOP SCH ×2 (09:09→20:54)
--- NOTE | 2022-02-04 11:11 | Diagnostic Imaging Report ---
INDICATION: Fever Portable chest 11:07 AM Heart size and pulmonary vascularity are normal. There are no infiltrates, effusions or pneumothoraces. There is fullness right paratracheal space and mediastinum. IMPRESSION: Slight widening superior mediastinum may be vascular. It is new since 01/23/2022. Dictated by: Dictated on workstation # [id number]
--- NOTE | 2022-02-04 11:13 | Speech Therapy Daily Note ---
Speech Daily Progress Note Subjective Date Seen by Provider: Feb 04, 2022 Time Seen by Provider: 10:00 The patient was lying in bed, sleeping upon entrance to his room by the clinician. The patient woke to the clinician's verbal greeting, however, continuously returned to sleep throughout the treatment session. The patient was positioned upright in bed, the in-room blinds were lifted, and the room lights were placed on in attempts to improve participation and alertness. Objective The patient and clinician discussed the patient's swallowing strategies prior to attempts at P.O. intake. The patient responds to questions about his swallowing strategies and tolerance of his current diet consistency with, "Yep, breakfast was good. If you say so." The patient is unable to recall the swallowing strategies which is consistent with his documented difficulty with memory due to his known diagnosis of Alzheimer's. The clinician will continue to monitor the patient's safety with P.O. intake. Unfortunately, swallowing exercises and cognitive therapy is not beneficial at this time, as the patient is unable to recall the necessity of repetition for strength building. The patient requires consistent verbal prompting for limited participation throughout the skilled treatment session, frequently returning to sleep r egardless of the clinician's measures to improve alertness. The patient does consume one straw drink of water and one straw drink of coffee without overt s/s of suspected aspiration. The patient held the cup, however, the clinician was required to provide steadiness for feeding. Assessment Assessment Current Status: Poor Progress Treatment Plan Continue Plan of Care Speech Short Term Goals Short Term Goals Short Term Goals 1. The patient, staff, and family members will follow safe swallowing strategies with 90% accuracy, independently. 2. The patient will respond appropriately to simple yes and no questions with 75% accuracy and mild clinician verbal cueing. Speech Blind Aide Goals Blind Aide Goals 1. The patient will tolerate the least restrictive diet consistency without s/s of suspected aspiration. 2. The patient will demonstrate an improvement in cognitive linguistic skills for safe discharge to the least restrictive environment. Speech-Plan Treatment Plan Speech Therapy Treatment Plan: Continue Plan of Care Treatment Duration: Feb 12, 2022 Frequency: Modified Program (IRF) Estimated Hrs Per Day: .5 hour per day Rehab Potential: Poor Safety Risks/Education Teaching Recipient: Patient Teaching Methods: Demonstration, Discussion Response to Teaching: Unable to Comprehend Education Topics Provided: Swallowing Exercises, Swallowing Strategies, S/S of Suspected Aspiration Time Speech Therapy Time In: 10:00 Speech Therapy Time Out: 10:30 Total Billed Time: 30 Billed Treatment Time 1, VINEET IGNA SELF Feb 04, 2022 11:13
[2022-02-04 11:34] LABS: BASOPHILS % (AUTO) 0 % (0-10); EOSINOPHILS # (AUTO) 0.2 10^3/uL (0.0-0.3); EOSINOPHILS % (AUTO) 2 % (0-10); HEMATOCRIT 26 % (40-54); HEMOGLOBIN 8.4 g/dL (13.3-17.7); LYMPHOCYTES # (AUTO) 0.8 10^3/uL (1.0-4.0); LYMPHOCYTES % (AUTO) 7 % (12-44); MEAN CORPUSCULAR HEMOGLOBIN 30 pg (25-34); MEAN CORPUSCULAR HGB CONC 33 g/dL (32-36); MEAN CORPUSCULAR VOLUME 90 fL (80-99); MEAN PLATELET VOLUME 9.6 fL (9.0-12.2); MONOCYTES % (AUTO) 9 % (0-12); NEUTROPHILS # (AUTO) 9.2 10^3/uL (1.8-7.8); NEUTROPHILS % (AUTO) 80 % (42-75); PLATELET COUNT 601 10^3/uL (130-400); WHITE BLOOD COUNT 11.5 10^3/uL (4.3-11.0)
[2022-02-04 11:58] LABS: EOSINOPHILS % (MANUAL) 2 %; LYMPHOCYTES % (MANUAL) 6 %; MONOCYTES % (MANUAL) 7 %; NEUTROPHILS % (MANUAL) 85 %; RBC MORPH NORMAL
[2022-02-04 11:59] LABS: ALBUMIN 3.1 GM/DL (3.2-4.5); BILIRUBIN,TOTAL 1.2 MG/DL (0.1-1.0); CALCIUM 9.4 MG/DL (8.5-10.1); CREATININE SERUM 1.19 MG/DL (0.60-1.30); POTASSIUM 3.5 MMOL/L (3.6-5.0); TOTAL PROTEIN 6.2 GM/DL (6.4-8.2)
--- NOTE | 2022-02-04 12:18 | Occupational Ther Daily Note ---
OT Current Status-Daily Note Subjective Pt sleeping at OT arrival, requires extra time to become more alert. Co-treat with PT for part of treatment ([id number]) secondary to poor mobility, high fall risk, poor safety, endurance, cognitive deficits, and need of 2 skilled clinicians to progress indep and safety with adls and functional mobility. Appearance Pt left sitting in w/c, all needs within reach, in room at OT departure. Mental Status/Objective Patient Orientation: Person, Confused Attachments: IV, Oxygen ADL-Treatment Therapy Code Descriptions/Definitions Functional [place] Measure: 0=Not Assessed/NA 4=Minimal Assistance 1=Total Assistance 5=Supervision or Setup 2=Maximal Assistance 6=Modified [place] 3=Moderate Assistance 7=Complete IndependenceSCALE: Activities may be completed with or without assistive devices. 5-Nrprigskyw-swqidwp completes the activity by him/herself with no assistance from a helper. 5-Set-up or Clean-up Assistance-helper sets up or cleans up; patient completes activity. [place] assists only prior to or following the activity. 4-Supervision or Touching Assistance-helper provides verbal cues and/or touching/steadying and/or contact guard assistance as patient completes activity. Assistance may be provided throughout the activity or intermittently. 3-Partial/Moderate Assistance-helper does LESS THAN HALF the effort. [place] lifts, holds or supports trunk or limbs, but provides less than half the effort. 2-Substantial/Maximal Assistance-helper does MORE THAN HALF the effort. [place] lifts or holds trunk or limbs and provides more than half the effort. 7-Rlhlajudr-epfnvn does ALL the effort. Patient does none of the effort to complete the activity. Or, the assistance of 2 or more helpers is required for the patient to complete the activity. If activity was not attempted, code reason: 7-Patient Refused. 9-Not Applicable-not attempted and the patient did not perform the activity before the current illness, exacerbation or injury. 10-Not Attempted due to Environmental Limitations-(lack of equipment, weather restraints, etc.). 88-Not Attempted due to Medical Conditions or Safety Concerns. Lower Body Dressing (QC): 1 On/Off Footwear: 1 Toileting Hygiene (QC): 1 Supine>sit: Mod a to elevate torso and bring LE's off edge of bed. Upon sitting upright, pt incontinent of stools. He was returned to supine for collin care. RN reports pt has had several loose stools this date. Thus, pants/shorts not donned this date (new gown and brief only). Dependent to thread BLE's into brief and manage up to waist while rolling R/L. Mod a to roll both directions. Mod a to pivot towards w/c. 2nd person min a to bring hips fully over to w/c. Other Treatment Pt propelled w/c to therapy gym with SBA for cues on improved propulsion and energy expenditure. Extra time and cues for safety when propelling through doorways. While in gym, pt participated in standing activity in parallel bars. Focus on improving standing balance, tolerance, weight shifting, posture, and reducing UE support needed for functional tasks. Pt often offloading weight onto LLE and requires cues and assist to shift weight onto RLE. Pt completed toe taps onto ~6 inch step in order to increase weight bearing onto RLE. Mod a x2 to maintain balance. 2 sets of 5. Cues for posture throughout activities. Pt also reached slightly out of [place]HA[place] towards R side, again to encourage weight shifting. 1 mild LOB needed min-mod a to recover. While seated, pt completed core strengthening exercises/activity with trunk/back support removed from w/c. Pt fatigues easily and requires intermittent min-mod a to stay upright. Increased balance assist needed when reaching towards R vs left as well as when fatigue increases. No forward reaching completed in order to maintain adherence to hip precautions. Education OT Patient Education: Correct positioning, Energy conservation, Modified ADL techniques, Progress toward Goal/Update tx plan, Purpose of tx/functional activities, Reviewed precautions, Rehab process, Safety issues, Transfer techniques, W/C management Teaching Recipient: Patient Teaching Methods: Demonstration, Discussion Response to Teaching: Reinforcement Needed OT Short Term Goals Short Term Goals Time Frame: Feb 11, 2022 Eatin Oral hygiene: 3 Toileting hygiene: 3 Shower/bathe self: 2 Upper body dressin Lower body dressin Putting on/taking off footwear: 2 OT Funeral Home Attendant Goals Skilled Nursing Goals Time Frame: Feb 25, 2022 Eating (QC): 5 Oral Hygiene (QC): 5 Toileting Hygiene (QC): 4 Shower/Bathe Self (QC): 3 Upper Body Dressing (QC): 4 Lower Body Dressing (QC): 3 On/Off Footwear (QC): 2 1=Demonstrate adherence to instructed precautions during ADL tasks. 2=Patient will verbalize/demonstrate understanding of assistive devices/modifications for ADL. 3=Patient will improve strength/tolerance for activity to enable patient to perform ADL's. OT Education/Plan Problem List/Assessment Assessment: Decreased Activ Tolerance, Decreased Safety Aware, Decreased UE Strength, Dependent Transfers, Impaired Bed Mobility, Impaired Cognition, Impaired Funct Balance, Impaired Self-Care Skills Discharge Recommendations Plan/Recommendations: Continue POC Therapy Discharge Recommendati: Post Acute OT Treatment Plan/Plan of Care Treatment,Training & Education: Yes Patient would benefit from OT for education, treatment and training to promote independence in ADL's, mobility, safety and/or upper extremity function for ADL's. Plan of Care: ADL Retraining, Caregiver Training, Cognitive Retraining, Concurrent Therapy, Functional Mobility, Group Exercise/Act as Ind, UE Funct Exercise/Act, W/C Management Training Treatment Duration: Feb 25, 2022 Frequency: At least 5 of 7 days/Wk (IRF) Estimated Hrs Per Day: 1.5 hours per day (75-90 min/day) Rehab Potential: Poor Time/GCodes Start Time: 11:00 Stop Time: 12:15 Total Time Billed (hr/min): 75 Billed Treatment Time 1 visit ADL x2 (30 min) FA x3 (45 min) Kayla Desai OT Feb 04, 2022 12:18
[2022-02-04] MEDS: POTASSIUM BICARB 20 MEQ (EFFER-K) TABLET PO SCH (12:38)
--- NOTE | 2022-02-04 12:48 | Physical Therapy Daily Note ---
PT Daily Note-Current Subjective Patient in bed pre tx, already working with OT. Patient voices no complaints of pain. Patient has had a BM and needs cleaned. Appearance Patient in WC post tx to continue with OT for a bit. Mental Status Patient Orientation: Person, Confused Attachments: Oxygen Transfers SCALE: Activities may be completed with or without assistive devices. 8-Zliwecvnkh-dbnbphh completes the activity by him/herself with no assistance from a helper. 5-Set-up or Clean-up Assistance-helper sets up or cleans up; patient completes activity. [place] assists only prior to or following the activity. 4-Supervision or Touching Assistance-helper provides verbal cues and/or touching/steadying and/or contact guard assistance as patient completes activity. Assistance may be provided throughout the activity or intermittently. 3-Partial/Moderate Assistance-helper does LESS THAN HALF the effort. [place] lifts, holds or supports trunk or limbs, but provides less than half the effort. 2-Substantial/Maximal Assistance-helper does MORE THAN HALF the effort. [place] lifts or holds trunk or limbs and provides more than half the effort. 0-Wrowahjuw-ilwoej does ALL the effort. Patient does none of the effort to complete the activity. Or, the assistance of 2 or more helpers is required for the patient to complete the activity. If activity was not attempted, code reason: 7-Patient Refused. 9-Not Applicable-not attempted and the patient did not perform the activity before the current illness, exacerbation or injury. 10-Not Attempted due to Environmental Limitations-(lack of equipment, weather restraints, etc.). 88-Not Attempted due to Medical Conditions or Safety Concerns. Roll Left & Right (QC): 3 Sit to Lying (QC): 2 Lying to Sitting/Side of Bed(Q: 2 Sit to Stand (QC): 2 Chair/Xgc-pv-Sythe Xfer(QC): 2 Patient has to roll from side to side several times for cleaning BM, replacing pads on bed, and putting brief on and gown. Patient then sits to the side of the bed with max assist and transfers to WC with max assist. Weight Bearing Right Lower Extremity: Right Weight Bearing/Tolerated Left Lower Extremity: Left Full Weight Bearing Gait Training Distance: 6'x3 Gait Assistive Device: Parallel Bars Max assist, needs cues and tactile cueing for positioning when trying to stand, he had decreased weight bearing on right leg. Wheelchair Training Does the Pt Use a Wheelchair?: Yes Wheel 50 ft with 2 turns (QC): 3 Type of Wheelchair: Manual Exercises Standing in parallel bars toe taps 2 sets of 5 to get patient to bear more weight on right leg. Also a standing reaching for cones activity. Treatments PT performed bed mobility and transfers, ambulation, WC mobility, standing activity and toe taps,, OT performed cleaning, dressing, UE activity, UE safety and positioning during activity. Assessment Current Status: Poor Progress slight improvement in ambulation PT Longterm Goals Longterm Goals PT Blocker Automatic Goals Time Frame: Feb 14, 2022 Roll Left & Right (QC): 4 Sit to Lying (QC): 4 Lying-Sitting on Side/Bed(QC): 4 Sit to Stand (QC): 4 Chair/Xdt-cg-Iimrz Xfer(QC): 4 Toilet Transfer (QC): 4 Car Transfer (QC): 4 Does the Patient Walk: Yes Walk 10 feet (QC): 4 Walk 50ft with 2 Turns (QC): 4 Walk 150 ft (QC): 3 Walking 10ft on Uneven Surface: 4 1 Step (curb) (QC): 2 4 Steps (QC): 2 12 Steps (QC): 88 Picking up an Object (QC): 4 Does the Pt use WC or Scooter?: Yes Wheel 50 feet with 2 turns (QC: 5 Type: Manual Wheel 150 feet: 5 Type: Manual PT Plan Problem List Problem List: Activity Tolerance, Functional Strength, Safety, Balance, Gait, Transfer, Bed Mobility, ROM Treatment/Plan Treatment Plan: Continue Plan of Care Treatment Plan: Bed Mobility, Education, Functional Activity [place], Functional Strength, Group Therapy, Gait, Safety, Therapeutic Exercise, Transfers Treatment Duration: Mar 07, 2022 Frequency: At least 5 of 7 days/Wk (IRF) Estimated Hrs Per Day: 1.5 hours per day Patient and/or Family Agrees t: Yes Safety Risks/Education Patient Education: Gait Training, Transfer Techniques, Correct Positioning, W/C Management, Safety Issues Teaching Recipient: Patient Teaching Methods: Demonstration, Discussion Response to Teaching: Reinforcement Needed Time/GCodes Time In: 1115 Time Out: 1200 Total Billed Treatment Time: 45 Total Billed Treatment 1 visit FA 45' co-treated for 45' JELANI AMES PT Feb 04, 2022 12:48
--- NOTE | 2022-02-04 13:53 | Physical Therapy Daily Note ---
PT Daily Note-Current Subjective Patient sitting on commode pre tx, nursing is getting ready to clean him up. Appearance Patient in bed post tx with nurse call, phone, tray, bed alarm on. Mental Status Patient Orientation: Person, Confused Attachments: Oxygen Transfers SCALE: Activities may be completed with or without assistive devices. 7-Ojskppxhcn-umnvbiv completes the activity by him/herself with no assistance from a helper. 5-Set-up or Clean-up Assistance-helper sets up or cleans up; patient completes activity. [place] assists only prior to or following the activity. 4-Supervision or Touching Assistance-helper provides verbal cues and/or touching/steadying and/or contact guard assistance as patient completes activity. Assistance may be provided throughout the activity or intermittently. 3-Partial/Moderate Assistance-helper does LESS THAN HALF the effort. [place] lifts, holds or supports trunk or limbs, but provides less than half the effort. 2-Substantial/Maximal Assistance-helper does MORE THAN HALF the effort. [place] lifts or holds trunk or limbs and provides more than half the effort. 1-Bbcansldx-cqngrm does ALL the effort. Patient does none of the effort to complete the activity. Or, the assistance of 2 or more helpers is required for the patient to complete the activity. If activity was not attempted, code reason: 7-Patient Refused. 9-Not Applicable-not attempted and the patient did not perform the activity before the current illness, exacerbation or injury. 10-Not Attempted due to Environmental Limitations-(lack of equipment, weather restraints, etc.). 88-Not Attempted due to Medical Conditions or Safety Concerns. Roll Left & Right (QC): 3 Sit to Lying (QC): 3 Sit to Stand (QC): 3 Chair/Kdz-hh-Qxipr Xfer(QC): 3 Mod assist for sit to stand, nurse cleans patient, he turns with mod assist and is able to take a few sidesteps with mod assist toward the head of the bed before sitting down, mod assist for sit to supine. Weight Bearing Right Lower Extremity: Right Weight Bearing/Tolerated Left Lower Extremity: Left Full Weight Bearing Exercises Supine Ex: Ankle pumps, Quad Set, Glut sets, Heel Slides (AAROM), Short Arc Quads, Straight leg raise (AAROM), Hip abd/add (AAROM) Supine Reps: 15 Treatments transfers, LE hip protocol Assessment Current Status: Fair Progress improved transfers and standing, patient should be able to start ambulating with the rolling walker soon. PT Records Officer Goals Usp Goals PT Records Officer Goals Time Frame: Feb 14, 2022 Roll Left & Right (QC): 4 Sit to Lying (QC): 4 Lying-Sitting on Side/Bed(QC): 4 Sit to Stand (QC): 4 Chair/Xrp-re-Fekgx Xfer(QC): 4 Toilet Transfer (QC): 4 Car Transfer (QC): 4 Does the Patient Walk: Yes Walk 10 feet (QC): 4 Walk 50ft with 2 Turns (QC): 4 Walk 150 ft (QC): 3 Walking 10ft on Uneven Surface: 4 1 Step (curb) (QC): 2 4 Steps (QC): 2 12 Steps (QC): 88 Picking up an Object (QC): 4 Does the Pt use WC or Scooter?: Yes Wheel 50 feet with 2 turns (QC: 5 Type: Manual Wheel 150 feet: 5 Type: Manual PT Plan Problem List Problem List: Activity Tolerance, Functional Strength, Safety, Balance, Gait, Transfer, Bed Mobility, ROM Treatment/Plan Treatment Plan: Continue Plan of Care Treatment Plan: Bed Mobility, Education, Functional Activity [place], Functional Strength, Group Therapy, Gait, Safety, Therapeutic Exercise, Transfers Treatment Duration: Mar 07, 2022 Frequency: At least 5 of 7 days/Wk (IRF) Estimated Hrs Per Day: 1.5 hours per day Patient and/or Family Agrees t: Yes Safety Risks/Education Patient Education: Gait Training, Transfer Techniques, Correct Positioning, Saf ety Issues Teaching Recipient: Patient Teaching Methods: Demonstration, Discussion Response to Teaching: Reinforcement Needed Time/GCodes Time In: 1330 Time Out: 1400 Total Billed Treatment Time: 30 Total Billed Treatment 1 visit EX 15' FA 15' JELANI AMES PT Feb 04, 2022 13:53
[2022-02-04 16:21] LABS: BILIRUBIN,URINE NEGATIVE (NEGATIVE); CLARITY,URINE CLEAR; COLOR,URINE YELLOW; GLUCOSE, URINE (UA) 3+ (NEGATIVE); KETONES,URINE TRACE (NEGATIVE); LEUKOCYTE ESTERASE ,URINE NEGATIVE (NEGATIVE); NITRITE,URINE NEGATIVE (NEGATIVE); PH,URINE 6.5 (5-9); PROTEIN,URINE 1+ (NEGATIVE)
[2022-02-04 16:29] LABS: BACTERIA,URINE NEGATIVE /HPF; WBC,URINE 0-2 /HPF
[2022-02-04] MEDS: SERTRALINE 100 MG (ZOLOFT) TAB PO SCH (17:23)
[2022-02-04] MEDS: amLODIPine 5 MG (NORVASC) TAB PO SCH (17:23)
[2022-02-04 19:32] VITALS: BP 156/90
[2022-02-04] MEDS: ALPRAZolam 0.5 MG (XANAX) TAB PO SCH (20:55)
[2022-02-04] MEDS: TERAZOSIN 1 MG CAP (HYTRIN) PO SCH (20:55)
[2022-02-04] MEDS: NIACIN ER (NIASPAN) 500 MG TAB PO SCH (20:55)
[2022-02-04] MEDS: MIRABEGRON 25 MG TAB (MYRBETRIQ) PO SCH (20:55)
[2022-02-04] MEDS: HYDROcodone/APAP 5 MG/325 MG (LORTAB) TAB PO PRN (20:56)
[2022-02-04 21:06] VITALS: BP 126/79
[2022-02-05] MEDS: inSUlin ASPART (NovoLOG) 1 UNIT/0.01 ML (CHARGE PER UNIT) SC SCH ×4 (06:27→21:20)
[2022-02-05] MEDS: POTASSIUM BICARB 20 MEQ (EFFER-K) TABLET PO SCH (06:36)
--- NOTE | 2022-02-05 07:09 | PM&R Progress Note ---
Subjective HPI/CC On Admission Date Seen by Provider: Feb 05, 2022 Subjective/Events-last exam 02/05/2022: No fever issues Plateaued with improved function so DC will be soon No falls More tired Rectal carcinoma is progressing and draining the patient Hospice at DC 02/04/2022: Doing well Low grade fever noted Septic w/u ordered No major new issues 02/03/2022: Orthostasis reported when he stood up Monitoring closely Labs reviewed, nonspecific elevated wbc at 13k No falls Eating a bit better but not by much 02/02/2022: Patient doing well overall at bedside No concerns at this time Improved appetite 02/01/2022: Doing well at bedside Eating minimally No falls No pain reported 01/31/2022: Dramatic improvement at bedside No concerns Voiding well Hemoglobin improved Completed antibiotic 01/30/2022: Patient doing much better Sitting up in chair today Pain is improved No major concerns We will check labs tomorrow 01/29/2022: Pt is doing pretty well Blood sugar was 173 last night and 111 today Doesn't eat much Oriented x2 Pain pill taken which helps Incontinent of loose stools so holding laxative Crushing meds help Review of Systems General: Fatigue, Malaise Musculoskeletal: leg pain Neurological: Confusion Objective Exam Vital Signs Vital Signs Date Time Temp Pulse Resp B/P (MAP) Pulse Ox O2 Delivery O2 Flow Rate FiO2 02/05/22 21:00 Nasal Cannula 2.00 02/05/22 19:47 37.7 99 20 120/73 (89) 94 Capillary Refill : General Appearance: No Apparent Distress, WD/WN, Chronically ill, Thin HEENT: PERRL/EOMI, Normal ENT Inspection, Pharynx Normal Neck: Full Range of Motion, Normal Inspection, Non Tender, Supple, Carotid Bruit Respiratory: Chest Non Tender, Lungs Clear, Normal Breath Sounds, No Accessory Muscle Use, No Respiratory Distress, Decreased Breath Sounds Cardiovascular: Regular Rate, Rhythm, No Edema, No Gallop, No JVD, No Murmur, Normal Peripheral Pulses Gastrointestinal: Normal Bowel Sounds, No Organomegaly, No Pulsatile Mass, Non Tender, Soft Back: Normal Inspection, No CVA Tenderness, No Vertebral Tenderness Extremity: Normal Capillary Refill, Normal Inspection, Normal Range of Motion, Non Tender, No Calf Tenderness, No Pedal Edema Neurologic/Psychiatric: Alert, show worker II-XII Norm as Tested, Abnormal Gait, Depressed Affect, Disoriented, Motor Weakness (generalized but specifically right leg) Skin: Normal Color, Warm/Dry Lymphatic: No Adenopathy Results/Procedures Lab Patient resulted labs reviewed. FIM Transfers Therapy Code Descriptions/Definitions Functional [place] Measure: 0=Not Assessed/NA 4=Minimal Assistance 1=Total Assistance 5=Supervision or Setup 2=Maximal Assistance 6=Modified [place] 3=Moderate Assistance 7=Complete IndependenceSCALE: Activities may be completed with or without assistive devices. 3-Yqbaszgkkm-zmzkeus completes the activity by him/herself with no assistance from a helper. 5-Set-up or Clean-up Assistance-helper sets up or cleans up; patient completes activity. [place] assists only prior to or following the activity. 4-Supervision or Touching Assistance-helper provides verbal cues and/or touching/steadying and/or contact guard assistance as patient completes activity. Assistance may be provided throughout the activity or intermittently. 3-Partial/Moderate Assistance-helper does LESS THAN HALF the effort. [place] lifts, holds or supports trunk or limbs, but provides less than half the effort. 2-Substantial/Maximal Assistance-helper does MORE THAN HALF the effort. [place] lifts or holds trunk or limbs and provides more than half the effort. 6-Sareoflif-kpzscd does ALL the effort. Patient does none of the effort to complete the activity. Or, the assistance of 2 or more helpers is required for the patient to complete the activity. If activity was not attempted, code reason: 7-Patient Refused. 9-Not Applicable-not attempted and the patient did not perform the activity before the current illness, exacerbation or injury. 10-Not Attempted due to Environmental Limitations-(lack of equipment, weather restraints, etc.). 88-Not Attempted due to Medical Conditions or Safety Concerns. Roll Left to Right (QC): 3 Sit to Lying (QC): 3 Sit to Stand (QC): 3 Chair/Fxg-az-Exgrm Xfer(QC): 3 Car Transfer (QC): 2 Gait Training Does the Patient Walk?: Yes Distance: 6'x3 Walk 10 feet (QC): 88 Walk 50 ft with 2 Turns(QC): 88 Walk 150 ft (QC): 88 Walking 10ft/uneven surface-QC: 88 Gait Persons Needed: 2 Gait Assistive Device: Parallel Bars Wheelchair Training Does the Pt Use a Wheelchair?: Yes Distance: 50 Wheel 50 ft with 2 turns (QC): 3 Wheel 150 ft (QC): 88 Type of Wheelchair: Manual Stair Training #of Steps: 0 1 Step (curb) (QC): 88 4 Steps (QC): 88 12 Steps (QC): 88 Balance Picking up an Object (QC): 88 ADL-Treatment Eating (QC): 3 Oral Hygiene (QC): 3 Shower/Bathe Self (QC): 3 Upper Body Dressing (QC): 2 Lower Body Dressing (QC): 1 On/Off Footwear (QC): 1 Toileting Hygiene (QC): 1 Toilet Transfer (QC): 1 Assessment/Plan Assessment and Plan Assess & Plan/Chief Complaint Assessment: Status post right hip fracture with post op complication of acute respiratory failure due to PNA requiring intubation Dementia TIA history Smoker Hypertension Hyperlipidemia Chronic constipation BPH New urinary incontinence Diabetes mellitus Rectal carcinoma s/p radiation only not tolerated well via [facility] Anemia s/p transfusions of 2 units of blood KATH on admit [place] cath in place Neuropathy Plan: PT OT Pain control Monitor closely 01/29/2022: Monitor hemoglobin Pain control Improve transfers and strengthening to help when he returns home on hospice 01/30/2022: Much improved Continue aggressive rehab in order to return back home to hospice Low grade fever prompting w/u 02/04/22 01/31/2022: Much improved Completed antibiotic 02/01/2022: Monitor closely Supportive care 02/02/2022: Supportive care Increase oral nutrition 02/03/2022: Continue aggressive rehab DC on hospice 02/04/2022: Monitor closely Supportive care 02/05/2022: DC soon on Hospice (1) Closed right hip fracture Status: Acute (2) Diabetes mellitus Status: Chronic (3) Dementia Status: Chronic (4) Hypertension (5) BPH (benign prostatic hyperplasia) Status: Chronic (6) DVT prophylaxis Status: Acute (7) Acute kidney injury superimposed on chronic kidney disease (8) Primary hypertension (9) Mixed hyperlipidemia (10) Aortic regurgitation (11) Pulmonary hypertension (12) Smoker (13) Hyperlipidemia (14) Frailty LENNY CAVANAUGH DO Feb 05, 2022 07:09
[2022-02-05 07:42] VITALS: BP 112/59
--- NOTE | 2022-02-05 08:45 | Physical Therapy Daily Note ---
PT Daily Note-Current Subjective Pt. in bed asleep but awakens with activity. Nurse reports low FSBS earlier. PT OT co Rx secondary to sever debility and weakness and safety issues. Pt responded to instruction appropriately 80% of time . No c/o pain Pain Location: No Pain Reported Appearance bilat heels with pink and advancing to stage 2 R>L Mental Status Attachments: Oxygen (2L) Transfers SCALE: Activities may be completed with or without assistive devices. 4-Dxtgmqwyyu-ddqsrar completes the activity by him/herself with no assistance from a helper. 5-Set-up or Clean-up Assistance-helper sets up or cleans up; patient completes activity. [place] assists only prior to or following the activity. 4-Supervision or Touching Assistance-helper provides verbal cues and/or touching/steadying and/or contact guard assistance as patient completes a ctivity. Assistance may be provided throughout the activity or intermittently. 3-Partial/Moderate Assistance-helper does LESS THAN HALF the effort. [place] lifts, holds or supports trunk or limbs, but provides less than half the effort. 2-Substantial/Maximal Assistance-helper does MORE THAN HALF the effort. [place] lifts or holds trunk or limbs and provides more than half the effort. 0-Ecpkiiykr-ufulpe does ALL the effort. Patient does none of the effort to complete the activity. Or, the assistance of 2 or more helpers is required for the patient to complete the activity. If activity was not attempted, code reason: 7-Patient Refused. 9-Not Applicable-not attempted and the patient did not perform the activity before the current illness, exacerbation or injury. 10-Not Attempted due to Environmental Limitations-(lack of equipment, weather restraints, etc.). 88-Not Attempted due to Medical Conditions or Safety Concerns. Roll Left & Right (QC): 3 Lying to Sitting/Side of Bed(Q: 3 Sit to Stand (QC): 3 Chair/Hre-ck-Fxjek Xfer(QC): 3 needed mod assist for sup to sit using HOB up and draw pad to assist pt. Weight Bearing Right Lower Extremity: Right Weight Bearing/Tolerated Left Lower Extremity: Left Full Weight Bearing Gait Training Does the Patient Walk?: Yes Gait Assistive Device: FWW pt. ambulated for and back x 2 approx [address] with mod assist, slow and with instruction for wt bearing on walker and had some assist to advance RLE 50% of time. Exercises Supine Ex: Ankle pumps, Quad Set, Heel Slides, Hip abd/add Supine Reps: 15 Seated Therapy Exercises: Ankle pumps, Sit to stand, Long arc quads Seated Reps: 12 pt. required instruction and assist for all ex Treatments pt. in bed was 1st encouraged to eat but pt. only took in nutrition drink, nursing came in to check FSBS which was 75. Pt. did drink more after this. LE hip ex in sup, sup to sit TRFs, sat EOB 10 min , sit to stands, gait to recliner, OT assisted pt. in doning clean shirt and his shorts, Pt. was instructed in use of recliner, and call navarro, heels free in recliner. Pt. very grof=ggy throughout rx and needed stimulation to stay awake. left win recliner, abd pillow in place as well as support for heels free and call navarro. Assessment Current Status: Fair Progress very limited , dependent for all mob PT Jail Goals Process Pumper Goals PT Jail Goals Time Frame: Feb 14, 2022 Roll Left & Right (QC): 4 Sit to Lying (QC): 4 Lying-Sitting on Side/Bed(QC): 4 Sit to Stand (QC): 4 Chair/Azu-gs-Szzxk Xfer(QC): 4 Toilet Transfer (QC): 4 Car Transfer (QC): 4 Does the Patient Walk: Yes Walk 10 feet (QC): 4 Walk 50ft with 2 Turns (QC): 4 Walk 150 ft (QC): 3 Walking 10ft on Uneven Surface: 4 1 Step (curb) (QC): 2 4 Steps (QC): 2 12 Steps (QC): 88 Picking up an Object (QC): 4 Does the Pt use WC or Scooter?: Yes Wheel 50 feet with 2 turns (QC: 5 Type: Manual Wheel 150 feet: 5 Type: Manual PT Plan Treatment/Plan Treatment Plan: Continue Plan of Care Treatment Plan: Bed Mobility, Education, Functional Activity [place], Functional Strength, Group Therapy, Gait, Safety, Therapeutic Exercise, Transfers Treatment Duration: Mar 07, 2022 Frequency: At least 5 of 7 days/Wk (IRF) Estimated Hrs Per Day: 1.5 hours per day Patient and/or Family Agrees t: Yes Safety Risks/Education Patient Education: Gait Training, Transfer Techniques, Reviewed Precautions, Correct Positioning, Disease Process, Safety Issues Teaching Recipient: Patient Teaching Methods: Discussion Response to Teaching: Unable to Return Demonstration, Unable to Comprehend, Reinforcement Needed Time/GCodes Time In: 730 Time Out: 845 Total Billed Treatment Time: 75 Total Billed Treatment 1,FA45m,EX15m,GT15m (70 m PT OT co Rx) STEFANIE STRATTON MAIL HANDLER EQUIPMENT OPERATOR Feb 05, 2022 08:45
--- NOTE | 2022-02-05 08:49 | Occupational Ther Daily Note ---
OT Current Status-Daily Note Subjective Pt sleepy, extra time to become alert. Denies pain but grimaces with movement. Co-treat with PT for part of treatment ([id number]) secondary to impaired mobility, high fall risk, poor safety, cognitive deficits, and poor activity tolerance. Appearance Pt left recline in chair, all needs within reach, PT in room at OT departure. Mental Status/Objective Patient Orientation: Person, Confused Attachments: Oxygen ADL-Treatment Therapy Code Descriptions/Definitions Functional [place] Measure: 0=Not Assessed/NA 4=Minimal Assistance 1=Total Assistance 5=Supervision or Setup 2=Maximal Assistance 6=Modified [place] 3=Moderate Assistance 7=Complete IndependenceSCALE: Activities may be completed with or without assistive devices. 6-Qadgjamudb-oquujgh completes the activity by him/herself with no assistance from a helper. 5-Set-up or Clean-up Assistance-helper sets up or cleans up; patient completes activity. [place] assists only prior to or following the activity. 4-Supervision or Touching Assistance-helper provides verbal cues and/or touching/steadying and/or contact guard assistance as patient completes activity. Assistance may be provided throughout the activity or intermittently. 3-Partial/Moderate Assistance-helper does LESS THAN HALF the effort. [place] lifts, holds or supports trunk or limbs, but provides less than half the effort. 2-Substantial/Maximal Assistance-helper does MORE THAN HALF the effort. [place] lifts or holds trunk or limbs and provides more than half the effort. 8-Fwaixkrdl-hhwwky does ALL the effort. Patient does none of the effort to complete the activity. Or, the assistance of 2 or more helpers is required for the patient to complete the activity. If activity was not attempted, code reason: 7-Patient Refused. 9-Not Applicable-not attempted and the patient did not perform the activity before the current illness, exacerbation or injury. 10-Not Attempted due to Environmental Limitations-(lack of equipment, weather restraints, etc.). 88-Not Attempted due to Medical Conditions or Safety Concerns. Eating (QC): 3 Upper Body Dressing (QC): 3 Lower Body Dressing (QC): 3 On/Off Footwear: 1 Supine>sit: mod a to elevate torso and bring LE's off edge of bed. 1-2 UE support on bed rail and Intermittent min a to maintain balance. Multiple sit<>stands with mod a. Max cues and assist to shift weight forward. Slight improvement in weight bearing through RLE this date. Pt ambulated ~5 feet towards chair with min-mod a and use of walker. Mod a for management of walker, especially when turning. Partial sponge bath (with wet wipes) and dressings tasks performed seated in chair. Due to impaired dynamic sitting balance and core strength, pillows placed on either side of patient to assist in balance. Pt able to wash upper body with verbal cues to initiate and terminate task. Extra t cedric, tactile cues and min a to don shirt. Min-mod verbal cues for sequencing throughout dressing tasks. Improved use of hot molder this session, however still needs step by step cues. Simplification and extra time for processing cues needed for all functional tasks. Min-mod a to thread BLE's into shorts with use of hot molder. Mod a to stand. Dependent to manage clothing over waist secondary to needing BUE support to maintain balance. Dependent to don bilateral socks. Education OT Patient Education: Correct positioning, Energy conservation, Modified ADL techniques, Progress toward Goal/Update tx plan, Purpose of tx/functional activities, Reviewed precautions, Rehab process, Safety issues, Transfer techniques, Use of adapted equipment Teaching Recipient: Patient Teaching Methods: Demonstration, Discussion Response to Teaching: Reinforcement Needed OT Short Term Goals Short Term Goals Time Frame: Feb 11, 2022 Eatin Oral hygiene: 3 Toileting hygiene: 3 Shower/bathe self: 2 Upper body dressin Lower body dressin Putting on/taking off footwear: 2 OT Skilled Nursing Goals Certified Nurses' Aide Goals Time Frame: Feb 25, 2022 Eating (QC): 5 Oral Hygiene (QC): 5 Toileting Hygiene (QC): 4 Shower/Bathe Self (QC): 3 Upper Body Dressing (QC): 4 Lower Body Dressing (QC): 3 On/Off Footwear (QC): 2 1=Demonstrate adherence to instructed precautions during ADL tasks. 2=Patient will verbalize/demonstrate understanding of assistive devices/modifications for ADL. 3=Patient will improve strength/tolerance for activity to enable patient to perform ADL's. OT Education/Plan Problem List/Assessment Assessment: Decreased Activ Tolerance, Decreased Safety Aware, Decreased UE Strength, Impaired Bed Mobility, Impaired Cognition, Impaired Funct Balance, Impaired Self-Care Skills Discharge Recommendations Plan/Recommendations: Continue POC Therapy Discharge Recommendati: Post Acute OT Treatment Plan/Plan of Care Treatment,Training & Education: Yes Patient would benefit from OT for education, treatment and training to promote independence in ADL's, mobility, safety and/or upper extremity function for ADL's. Plan of Care: ADL Retraining, Caregiver Training, Cognitive Retraining, Concurrent Therapy, Functional Mobility, Group Exercise/Act as Ind, UE Funct Exercise/Act, W/C Management Training Treatment Duration: Feb 25, 2022 Frequency: At least 5 of 7 days/Wk (IRF) Estimated Hrs Per Day: 1.5 hours per day (75-90 min/day) Agreement: Yes Rehab Potential: Poor Time/GCodes Start Time: 07:25 Stop Time: 08:40 Total Time Billed (hr/min): 75 Billed Treatment Time 1 visit ADL x3 (40 min) FA x2 (35 min) Kayla Desai OT Feb 05, 2022 08:49
[2022-02-05 09:50] VITALS: BP 131/78
[2022-02-05] MEDS: VITAMIN D3 25 MCG (1,000 UNITS) TABLET PO SCH (09:50)
[2022-02-05] MEDS: PREGABALIN 25 MG (LYRICA) CAPSULE PO SCH ×2 (09:50→21:18)
[2022-02-05] MEDS: LOSARTAN 100 MG (COZAAR) TABLET PO SCH (09:50)
[2022-02-05] MEDS: PANTOPRAZOLE 20 MG TABLET (PROTONIX) PO SCH (09:50)
[2022-02-05] MEDS: LORATADINE (CLARITIN) 10 MG TAB PO SCH (09:50)
[2022-02-05] MEDS: TAMSULOSIN 0.4 MG (FLOMAX) CAP PO SCH (09:50)
[2022-02-05] MEDS: eZETimibe 10 MG (ZETIA) TABLET PO SCH (09:50)
[2022-02-05] MEDS: PSEUDOEPHEDRINE HCL 30 MG (SUDAFED) TAB PO SCH ×2 (09:50→21:18)
[2022-02-05] MEDS: MICONAZOLE 2% POWDER (DESENEX AF) 90 GM TOP SCH ×2 (09:51→21:18)
[2022-02-05] MEDS: tadalafiL 5 MG TABLET (NON-FORMULARY) PO SCH (09:51)
--- NOTE | 2022-02-05 10:18 | Speech Therapy Daily Note ---
Speech Daily Progress Note Subjective Date Seen by Provider: Feb 05, 2022 Time Seen by Provider: 10:00 The patient was seated upright in his recliner, awake upon entrance to his room by the clinician. Per RN, the patient has displayed lethargy and low blood sugar throughout the morning. The patient greeted the clinician and was agreeable to participation in the dysphagia treatment session. Objective The patient politely declined all attempts at P.O. intake on this date. The patient stated, "You've just missed it." The patient refused water, ice chips, iced tea, pudding, applesauce, waffles, and crackers. The patient reported, "I'm just not hungry today." The clinician discussed the patient's safe swallowing strategies. The patient is unable to recall the swallowing strategies or the recent upgrade to his diet consistency. The patient does report his breathing, "feels a little off." Due to this, his oxygen saturations were recorded by the clinician which ranged between 90% and 92% on 2L supplemental oxygen via nasal cannula. The patient's RN was n otified of the patient's statement. The clinician introduced diaphragmatic breathing to the patient to increase inhalation throughout his nose. The patient was able to following verbal directions and direct modeling throughout the instructional period. Due to the patient's lethargy and poor recall (baseline), limited progression is expected by this clinician. Assessment Assessment Current Status: Poor Progress Treatment Plan Continue Plan of Care Speech Short Term Goals Short Term Goals Short Term Goals 1. The patient, staff, and family members will follow safe swallowing strategies with 90% accuracy, independently. 2. The patient will respond appropriately to simple yes and no questions with 75% accuracy and mild clinician verbal cueing. Speech Contemporary Or Modern Dancer Goals Contemporary Or Modern Dancer Goals 1. The patient will tolerate the least restrictive diet consistency without s/s of suspected aspiration. 2. The patient will demonstrate an improvement in cognitive linguistic skills for safe discharge to the least restrictive environment. Speech-Plan Treatment Plan Speech Therapy Treatment Plan: Continue Plan of Care Treatment Duration: Feb 12, 2022 Frequency: Modified Program (IRF) Estimated Hrs Per Day: .5 hour per day Rehab Potential: Poor Safety Risks/Education Teaching Recipient: Patient Teaching Methods: Discussion Response to Teaching: Unable to Comprehend Education Topics Provided: Safe Swallowing Strategies, Diaphragmatic Breathing Time Speech Therapy Time In: 10:00 Speech Therapy Time Out: 10:30 Total Billed Time: 30 Billed Treatment Time 1, VINEET GINA SELF Feb 05, 2022 10:18
--- NOTE | 2022-02-05 10:49 | Progress Note - Ortho ---
Progress Note Subjective Date of Exam 02/05/22 Chief Complaint POD#13 Cemented bipolar hemiarthroplasty right hip for a nondisplaced subcapital fracture HPI/Events since last exam Mr. Cabral is 13 days since cemented bipolar hemiarthroplasty of the right hip for a nondisplaced subcapital fracture. He has no complaints. Review of Systems Reviewed and no additions or change Allergies: Coded Allergies: Puqiwon-XJG-MvZ Reductase Inhibitor (Verified Allergy, Unknown, 01/21/22) Home Meds Reported Medications Omeprazole (Omeprazole) 20 Mg Capsule.dr, 20 MG PO DAILY, CAP 01/22/22 Tadalafil (Tadalafil) 5 Mg Tablet, 5 MG PO DAILY, TAB 01/22/22 Pregabalin (Pregabalin) 25 Mg Capsule, 25 MG PO BID, CAP 01/22/22 Multivitamin (Multivitamin) 1 Each Tablet, 1 EACH PO DAILY, TAB 01/22/22 Cyanocobalamin (Vitamin B-12) (Vitamin B-12) 2,500 Mcg Tab.subl, 2500 MCG SL DAILY, TAB 01/21/22 Zinc Gluconate (Zinc) 50 Mg Tablet, 50 MG PO DAILY, TAB 01/21/22 Ascorbate Calcium (Vitamin C) 500 Mg Tablet, 500 MG PO DAILY, TAB 01/21/22 Mirabegron (Myrbetriq) 50 Mg Tab.er.24h, 50 MG PO HS, TAB 01/21/22 Clopidogrel Bisulfate (Clopidogrel) 75 Mg Tablet, 75 MG PO 1500, TAB 01/21/22 Sertraline HCl (Sertraline HCl) 100 Mg Tablet, 100 MG PO 1500, TAB 01/21/22 Cholecalciferol (Vitamin D3) (Vitamin D3) 25 Mcg (1000 Unit) Tablet, 25 MCG PO DAILY, TAB 01/21/22 Tamsulosin HCl (Flomax) 0.4 Mg Cap, 0.4 MG PO DAILY, CAP 03/28/19 Ezetimibe (Zetia) 10 Mg Tablet, 10 MG PO DAILY, TAB 03/28/19 Cetirizine HCl/Pseudoephedrine (Cetirizine-Pse ER 5-120 mg Tab) 5 Mg-120 Mg Tab.er.12h, 1 TAB PO Q12H, TAB 03/28/19 Aspirin/Acetaminophen/Caffeine (Excedrin Extra Strength Caplet) 1 Each Tablet, 1-2 TAB PO BID PRN for PAIN-MILD, TAB 03/28/19 [place] Fruit/Zinc Picoli ([place] 450 mg Capsule) 450 Mg-15 Mg Capsule, 1 CAP PO DAILY, CAP 03/28/19 Niacin (Inositol Niacinate) (Niacin 500 mg Capsule) 500 Mg Capsule, 500 MG PO HS, CAP 03/28/19 Amlodipine Besylate (Amlodipine Besylate) 5 Mg Tablet, 5 MG PO 1500, TAB 03/28/19 Glipizide (Glipizide) 5 Mg Tablet, 5 MG PO DAILY, TAB 03/28/19 Metformin HCl (Metformin HCl) 1,000 Mg Tablet, 1000 MG PO BID, TAB 03/28/19 Terazosin HCl (Terazosin HCl) 2 Mg Capsule, 2 MG PO HS, CAP 03/28/19 Losartan Potassium (Losartan Potassium) 100 Mg Tablet, 100 MG PO DAILY, TAB 03/28/19 Alprazolam (Alprazolam) 0.5 Mg Tablet, 0.5 MG PO HS, TAB 03/28/19 Objective Exam Constitutional: [] HEENT: [] Neck: [] Cardiovascular: [] Respiratory: [] Gastrointestinal: [] Genitourinary: [] Skin: [] Back/Spine: [] Extremities: [Leg is in equal position to the left. Normal sensation of the foot and toes with good cap refill and equal pulses. No weakness on dorsifle xion plantarflexion of the foot and ankle. No calf tenderness and negative Homans. Dressing is intact.] Neurologic: [] Psychiatric: [] Hematologic/lymphatic/immunologic: [] Vital Signs Vital Signs Date Time Temp Pulse Resp B/P (MAP) Pulse Ox O2 Delivery O2 Flow Rate FiO2 02/05/22 09:50 36.7 110 20 131/78 (95) 96 Nasal Cannula 2.00 02/05/22 07:42 36.8 103 20 112/59 (76) 95 Nasal Cannula 2.00 02/04/22 21:06 37.3 70 20 126/79 (95) 94 Nasal Cannula 2.00 02/04/22 20:30 Nasal Cannula 2.00 02/04/22 19:32 37.4 114 16 156/90 (112) 94 Nasal Cannula 2.00 Lab Results Laboratory Tests 02/04/22 10:50: White Blood Count 11.5H, Red Blood Count 2.84L, Hemoglobin 8.4L, Hematocrit 26L, Mean Corpuscular Volume 90, Mean Corpuscular Hemoglobin 30, Mean Corpuscular Hemoglobin Concent 33, Red Cell Distribution Width 15.6H, Platelet Count 601H, Mean Platelet Volume 9.6, Immature Granulocyte % (Auto) 2, Neutrophils (%) (Auto) 80H, Lymphocytes (%) (Auto) 7L, Monocytes (%) (Auto) 9, Eosinophils (%) (Auto) 2, Basophils (%) (Auto) 0, Neutrophils # (Auto) 9.2H, Lymphocytes # (Auto) 0.8L, Monocytes # (Auto) 1.0, Eosinophils # (Auto) 0.2, Basophils # (Auto) 0.0, Immature Granulocyte # (Auto) 0.2H, Neutrophils % (Manual) 85, Lymphocytes % (Manual) 6, Monocytes % (Manual) 7, Eosinophils % (Manual) 2, Blood Morphology Comment NORMAL, Sodium Level 142, Potassium Level 3.5L, Chloride Level 107, Carbon Dioxide Level 22, Anion Gap 13, Blood Urea Nitrogen 19H, Creatinine 1.19, Estimat Glomerular Filtration Rate 63, BUN/Creatinine Ratio 16, Glucose Level 271H, Calcium Level 9.4, Corrected Calcium 10.1, Total Bilirubin 1.2H, Aspartate Amino Transf (AST/SGOT) 17, Alanine Aminotransferase (ALT/SGPT) 30, Alkaline Phosphatase 93, Total Protein 6.2L, Albumin 3.1L, Procalcitonin 0.15H 02/04/22 15:31: Glucometer 339H 02/04/22 15:45: Urine Color YELLOW, Urine Clarity CLEAR, Urine pH 6.5, Urine Specific [place] 1.010L, Urine Protein 1+H, Urine Glucose (UA) 3+H, Urine Ketones TRACEH, Urine Nitrite NEGATIVE, Urine Bilirubin NEGATIVE, Urine Urobilinogen 0.2, Urine Leukocyte Esterase NEGATIVE, Urine RBC (Auto) TRACE-IH, Urine RBC NONE, Urine WBC 0-2, Urine Squamous Epithelial Cells NONE, Urine Renal Epithelial Cells NONE, Urine Crystals NONE, Urine Bacteria NEGATIVE, Urine Casts NONE, Urine Mucus SMALLH, Urine Culture Indicated NO 02/04/22 20:08: Glucometer 248H 02/05/22 06:16: Glucometer 57*L 02/05/22 06:53: Glucometer 57*L 02/05/22 07:42: Glucometer 75 02/05/22 09:45: Glucometer 124H 02/05/22 10:42: Glucometer 159H Assessment and Plan Assessment 13 days postop Problem List Unchanged Plan Continue with rehab with walker ambulation weightbearing as tolerated on the right Plan on staple removal right hip wound with reinforcement of Steri-Strips and Mastisol tomorrow. X-ray right hip tomorrow. Final Diagonsis Nondisplaced subcapital fracture right hip status post cemented bipolar hemia rthroplasty Level of the visit: Level 3 TEMI CHAVEZ MD Feb 05, 2022 10:49
[2022-02-05] MEDS: DOCUSATE SODIUM 100 MG (COLACE) CAP PO SCH ×2 (12:35→21:19)
[2022-02-05] MEDS: polyethylene glycoL POWDER 17 GM (MIRALAX) PACK PO SCH ×2 (12:36→21:19)
[2022-02-05] MEDS: SENNA W/DOCUSATE (SENOKOT S) TABLET PO SCH ×2 (12:36→21:19)
[2022-02-05 15:37] VITALS: BP 124/61
[2022-02-05] MEDS: amLODIPine 5 MG (NORVASC) TAB PO SCH (15:41)
[2022-02-05] MEDS: SERTRALINE 100 MG (ZOLOFT) TAB PO SCH (15:41)
[2022-02-05 19:47] VITALS: BP 120/73
[2022-02-05] MEDS: NIACIN ER (NIASPAN) 500 MG TAB PO SCH (21:18)
[2022-02-05] MEDS: MIRABEGRON 25 MG TAB (MYRBETRIQ) PO SCH (21:18)
[2022-02-05] MEDS: ALPRAZolam 0.5 MG (XANAX) TAB PO SCH (21:18)
[2022-02-05] MEDS: TERAZOSIN 1 MG CAP (HYTRIN) PO SCH (21:19)
--- NOTE | 2022-02-06 06:08 | PM&R Progress Note ---
Subjective HPI/CC On Admission Date Seen by Provider: Feb 06, 2022 Time Seen by Provider: 11:00 Subjective/Events-last exam 02/06/2022: Patient doing much better Lethargic No pain is reported Reviewed meds in preparation for Thursday discharge on hospice 02/05/2022: No fever issues Plateaued with improved function so DC will be soon No falls More tired Rectal carcinoma is progressing and draining the patient Hospice at DC 02/04/2022: Doing well Low grade fever noted Septic w/u ordered No major new issues 02/03/2022: Orthostasis reported when he stood up Monitoring closely Labs reviewed, nonspecific elevated wbc at 13k No falls Eating a bit better but not by much 02/02/2022: Patient doing well overall at bedside No concerns at this time Improved appetite 02/01/2022: Doing well at bedside Eating minimally No falls No pain reported 01/31/2022: Dramatic improvement at bedside No concerns Voiding well Hemoglobin improved Completed antibiotic 01/30/2022: Patient doing much better Sitting up in chair today Pain is improved No major concerns We will check labs tomorrow 01/29/2022: Pt is doing pretty well Blood sugar was 173 last night and 111 today Doesn't eat much Oriented x2 Pain pill taken which helps Incontinent of loose stools so holding laxative Crushing meds help Review of Systems General: Fatigue, Malaise Musculoskeletal: leg pain Neurological: Confusion Objective Exam Vital Signs Vital Signs Date Time Temp Pulse Resp B/P (MAP) Pulse Ox O2 Delivery O2 Flow Rate FiO2 02/06/22 20:17 Nasal Cannula 2.00 02/06/22 19:31 37.0 100 16 121/76 (91) 97 Capillary Refill : General Appearance: No Apparent Distress, WD/WN, Chronically ill, Thin HEENT: PERRL/EOMI, Normal ENT Inspection, Pharynx Normal Neck: Full Range of Motion, Normal Inspection, Non Tender, Supple, Carotid Bruit Respiratory: Chest Non Tender, Lungs Clear, Normal Breath Sounds, No Accessory Muscle Use, No Respiratory Distress, Decreased Breath Sounds Cardiovascular: Regular Rate, Rhythm, No Edema, No Gallop, No JVD, No Murmur, Normal Peripheral Pulses Gastrointestinal: Normal Bowel Sounds, No Organomegaly, No Pulsatile Mass, Non Tender, Soft Back: Normal Inspection, No CVA Tenderness, No Vertebral Tenderness Extremity: Normal Capillary Refill, Normal Inspection, Normal Range of Motion, Non Tender, No Calf Tenderness, No Pedal Edema Neurologic/Psychiatric: Alert, machine feed operator II-XII Norm as Tested, Abnormal Gait, Depressed Affect, Disoriented, Motor Weakness Skin: Normal Color, Warm/Dry Lymphatic: No Adenopathy Results/Procedures Lab Patient resulted labs reviewed. FIM Transfers Therapy Code Descriptions/Definitions Functional [place] Measure: 0=Not Assessed/NA 4=Minimal Assistance 1=Total Assistance 5=Supervision or Setup 2=Maximal Assistance 6=Modified [place] 3=Moderate Assistance 7=Complete IndependenceSCALE: Activities may be completed with or without assistive devices. 6-Bcdjceppvy-zbzpqir completes the activity by him/herself with no assistance from a helper. 5-Set-up or Clean-up Assistance-helper sets up or cleans up; patient completes activity. [place] assists only prior to or following the activity. 4-Supervision or Touching Assistance-helper provides verbal cues and/or touching/steadying and/or contact guard assistance as patient completes activity. Assistance may be provided throughout the activity or intermittently. 3-Partial/Moderate Assistance-helper does LESS THAN HALF the effort. [place] lif ts, holds or supports trunk or limbs, but provides less than half the effort. 2-Substantial/Maximal Assistance-helper does MORE THAN HALF the effort. [place] lifts or holds trunk or limbs and provides more than half the effort. 0-Vkvwfubcc-gqwpch does ALL the effort. Patient does none of the effort to complete the activity. Or, the assistance of 2 or more helpers is required for the patient to complete the activity. If activity was not attempted, code reason: 7-Patient Refused. 9-Not Applicable-not attempted and the patient did not perform the activity before the current illness, exacerbation or injury. 10-Not Attempted due to Environmental Limitations-(lack of equipment, weather restraints, etc.). 88-Not Attempted due to Medical Conditions or Safety Concerns. Roll Left to Right (QC): 3 Sit to Lying (QC): 3 Sit to Stand (QC): 3 Chair/Kuy-xk-Zhyol Xfer(QC): 3 Car Transfer (QC): 2 Gait Training Does the Patient Walk?: Yes Distance: 6'x3 Walk 10 feet (QC): 88 Walk 50 ft with 2 Turns(QC): 88 Walk 150 ft (QC): 88 Walking 10ft/uneven surface-QC: 88 Gait Persons Needed: 2 Gait Assistive Device: FWW Wheelchair Training Does the Pt Use a Wheelchair?: Yes Distance: 50 Wheel 50 ft with 2 turns (QC): 3 Wheel 150 ft (QC): 88 Type of Wheelchair: Manual Stair Training #of Steps: 0 1 Step (curb) (QC): 88 4 Steps (QC): 88 12 Steps (QC): 88 Balance Picking up an Object (QC): 88 ADL-Treatment Eating (QC): 3 Oral Hygiene (QC): 3 Shower/Bathe Self (QC): 3 Upper Body Dressing (QC): 3 Lower Body Dressing (QC): 3 On/Off Footwear (QC): 1 Toileting Hygiene (QC): 1 Toilet Transfer (QC): 1 Assessment/Plan Assessment and Plan Assess & Plan/Chief Complaint Assessment: Status post right hip fracture with post op complication of acute respiratory failure due to PNA requiring intubation Dementia TIA history Smoker Hypertension Hyperlipidemia Chronic constipation BPH New urinary incontinence Diabetes mellitus Rectal carcinoma s/p radiation only not tolerated well via [facility] Anemia s/p transfusions of 2 units of blood KATH on admit [place] cath in place Neuropathy Plan: PT OT Pain control Monitor closely 01/29/2022: Monitor hemoglobin Pain control Improve transfers and strengthening to help when he returns home on hospice 01/30/2022: Much improved Continue aggressive rehab in order to return back home to hospice Low grade fever prompting w/u 02/04/22 01/31/2022: Much improved Completed antibiotic 02/01/2022: Monitor closely Supportive care 02/02/2022: Supportive care Increase oral nutrition 02/03/2022: Continue aggressive rehab DC on hospice 02/04/2022: Monitor closely Supportive care 02/05/2022: DC soon on Hospice 02/06/2022: Discharge home on hospice on Thursday (1) Closed right hip fracture Status: Acute (2) Diabetes mellitus Status: Chronic (3) Dementia Status: Chronic (4) Hypertension (5) BPH (benign prostatic hyperplasia) Status: Chronic (6) DVT prophylaxis Status: Acute (7) Acute kidney injury superimposed on chronic kidney disease (8) Primary hypertension (9) Mixed hyperlipidemia (10) Aortic regurgitation (11) Pulmonary hypertension (12) Smoker (13) Hyperlipidemia (14) Frailty LENNY CAVANAUGH DO Feb 06, 2022 06:08
[2022-02-06] MEDS: POTASSIUM BICARB 20 MEQ (EFFER-K) TABLET PO SCH (06:45)
[2022-02-06] MEDS: inSUlin ASPART (NovoLOG) 1 UNIT/0.01 ML (CHARGE PER UNIT) SC SCH ×4 (06:45→20:40)
[2022-02-06 07:47] VITALS: BP 151/72
[2022-02-06] MEDS: LORATADINE (CLARITIN) 10 MG TAB PO SCH (08:45)
[2022-02-06] MEDS: eZETimibe 10 MG (ZETIA) TABLET PO SCH (08:45)
[2022-02-06] MEDS: VITAMIN D3 25 MCG (1,000 UNITS) TABLET PO SCH (08:45)
[2022-02-06] MEDS: LOSARTAN 100 MG (COZAAR) TABLET PO SCH (08:46)
[2022-02-06] MEDS: PREGABALIN 25 MG (LYRICA) CAPSULE PO SCH ×2 (08:46→20:01)
[2022-02-06] MEDS: PSEUDOEPHEDRINE HCL 30 MG (SUDAFED) TAB PO SCH ×2 (08:46→20:00)
[2022-02-06] MEDS: tadalafiL 5 MG TABLET (NON-FORMULARY) PO SCH (08:46)
[2022-02-06] MEDS: TAMSULOSIN 0.4 MG (FLOMAX) CAP PO SCH (08:46)
[2022-02-06] MEDS: PANTOPRAZOLE 20 MG TABLET (PROTONIX) PO SCH (08:46)
[2022-02-06] MEDS: MICONAZOLE 2% POWDER (DESENEX AF) 90 GM TOP SCH ×2 (08:46→20:41)
[2022-02-06] MEDS: DOCUSATE SODIUM 100 MG (COLACE) CAP PO SCH ×2 (09:46→20:01)
[2022-02-06] MEDS: SENNA W/DOCUSATE (SENOKOT S) TABLET PO SCH ×2 (09:47→20:01)
[2022-02-06] MEDS: polyethylene glycoL POWDER 17 GM (MIRALAX) PACK PO SCH ×2 (09:47→20:01)
--- NOTE | 2022-02-06 10:03 | Physical Therapy Daily Note ---
PT Daily Note-Current Subjective Pt. and present for training to prep for DC Sat. PT OT co Rx as pt. is weak and his balance and cognition wax and wane, Pts. wifes availability for training is at this time. The nurse , this PROJECT MANAGEMENT PROFESSIONAL and OTR Chante Desai all concur that car TRFs would be a vulnerable situation. SW consulted and [employer] w/c van lift is available and now scheduled for Sat DC. Pt. has no c/o today but does agree to rx and wants to use BSC. Pain Location: No Pain Reported Mental Status Patient Orientation: Confused (off and on) Attachments: Oxygen (2L) Transfers SCALE: Activities may be completed with or without assistive devices. 4-Lqcfuzphxo-wdjnzis completes the activity by him/herself with no assistance from a helper. 5-Set-up or Clean-up Assistance-helper sets up or cleans up; patient completes activity. [place] assists only prior to or following the activity. 4-Supervision or Touching Assistance-helper provides verbal cues and/or touching/steadying and/or contact guard assistance as patient completes activity. Assistance may be provided throughout the activity or intermittently. 3-Partial/Moderate Assistance-helper does LESS THAN HALF the effort. [place] lifts, holds or supports trunk or limbs, but provides less than half the effort. 2-Substantial/Maximal Assistance-helper does MORE THAN HALF the effort. [place] lifts or holds trunk or limbs and provides more than half the effort. 5-Rukeqngtu-ppirgo does ALL the effort. Patient does none of the effort to complete the activity. Or, the assistance of 2 or more helpers is required for the patient to complete the activity. If activity was not attempted, code reason: 7-Patient Refused. 9-Not Applicable-not attempted and the patient did not perform the activity before the current illness, exacerbation or injury. 10-Not Attempted due to Environmental Limitations-(lack of equipment, weather restraints, etc.). 88-Not Attempted due to Medical Conditions or Safety Concerns. Sit to Stand (QC): 3 Toilet Transfer (QC): 3 SPT to BSC from recliner was demonstrated to , Pt. on BSC for BM, sit to stand and cleaning as well as donning of brief and shorts, then performed TRF BSC to w/c with assist from OT for clothing pulled up. pt. was instructed throughout TRF for SPT with FWW to w/c. Car TRF demo was done but not with pt. and this is when decision was made to pursue [employer] van. Weight Bearing Right Lower Extremity: Right Weight Bearing/Tolerated Left Lower Extremity: Left Full Weight Bearing Gait Training Gait Assistive Device: FWW 3-4 steps left and right x2 with min to mod assist. for trf Treatments present for training in sit to stand, SPTs, toileting, as well as the importance of heights of surfaces ie bed, chair, pt. will have hosp bed and lift recline chair and w/c that will pad, also trained in all hip precautions repeatedly Assessment Current Status: Fair Progress very capable and demonstrated good knowledge and strength to care for during the time with this PROJECT MANAGEMENT PROFESSIONAL PT Retirement Goals Retirement Goals PT Retirement Goals Time Frame: Feb 14, 2022 Roll Left & Right (QC): 4 Sit to Lying (QC): 4 Lying-Sitting on Side/Bed(QC): 4 Sit to Stand (QC): 4 Chair/Srz-yo-Belvm Xfer(QC): 4 Toilet Transfer (QC): 4 Car Transfer (QC): 4 Does the Patient Walk: Yes Walk 10 feet (QC): 4 Walk 50ft with 2 Turns (QC): 4 Walk 150 ft (QC): 3 Walking 10ft on Uneven Surface: 4 1 Step (curb) (QC): 2 4 Steps (QC): 2 12 Steps (QC): 88 Picking up an Object (QC): 4 Does the Pt use WC or Scooter?: Yes Wheel 50 feet with 2 turns (QC: 5 Type: Manual Wheel 150 feet: 5 Type: Manual PT Plan Treatment/Plan Treatment Plan: Continue Plan of Care Treatment Plan: Bed Mobility, Education, Functional Activity [place], Functional Strength, Group Therapy, Gait, Safety, Therapeutic Exercise, Transfers Treatment Duration: Mar 07, 2022 Frequency: At least 5 of 7 days/Wk (IRF) Estimated Hrs Per Day: 1.5 hours per day Patient and/or Family Agrees t: Yes Safety Risks/Education Patient Education: Transfer Techniques, Reviewed Precautions, Correct Positioning, Disease Process, Safety Issues Teaching Recipient: Patient, Primary Caregiver, Family Teaching Methods: Demonstration, Discussion Response to Teaching: Verbalize Understanding, Return Demonstration, Reinforcement Needed Time/GCodes Time In: 845 Time Out: 1000 Total Billed Treatment Time: 75 Total Billed Treatment 1,FA75m STEFANIE STRATTON PROJECT MANAGEMENT PROFESSIONAL Feb 06, 2022 10:03
--- NOTE | 2022-02-06 10:17 | Occupational Ther Daily Note ---
OT Current Status-Daily Note Subjective present for family training with PT/OT. She asks appropriate questions and appears knowledgeable on content given. Appearance Pt left sitting in w/c, all needs within reach, in room at therapy departure. Mental Status/Objective Patient Orientation: Person, Confused ADL-Treatment Therapy Code Descriptions/Definitions Functional [place] Measure: 0=Not Assessed/NA 4=Minimal Assistance 1=Total Assistance 5=Supervision or Setup 2=Maximal Assistance 6=Modified [place] 3=Moderate Assistance 7=Complete IndependenceSCALE: Activities may be completed with or without assistive devices. 4-Byqknkesty-pkvqcla completes the activity by him/herself with no assistance from a helper. 5-Set-up or Clean-up Assistance-helper sets up or cleans up; patient completes activity. [place] assists only prior to or following the activity. 4-Supervision or Touching Assistance-helper provides verbal cues and/or touching/steadying and/or contact guard assistance as patient completes activity. Assistance may be provided throughout the activity or intermittently. 3-Partial/Moderate Assistance-helper does LESS THAN HALF the effort. [place] lifts, holds or supports trunk or limbs, but provides less than half the effort. 2-Substantial/Maximal Assistance-helper does MORE THAN HALF the effort. [place] lifts or holds trunk or limbs and provides more than half the effort. 2-Tcqcldupc-legggu does ALL the effort. Patient does none of the effort to complete the activity. Or, the assistance of 2 or more helpers is required for the patient to complete the activity. If activity was not attempted, code reason: 7-Patient Refused. 9-Not Applicable-not attempted and the patient did not perform the activity before the current illness, exacerbation or injury. 10-Not Attempted due to Environmental Limitations-(lack of equipment, weather restraints, etc.). 88-Not Attempted due to Medical Conditions or Safety Concerns. Lower Body Dressing (QC): 1 On/Off Footwear: 1 Toileting Hygiene (QC): 1 Toilet Transfer (QC): 3 present for family training. Heavy focus on transfers on/off surfaces. Education provided on cues, positioning, and hip precautions. able to provide assistance with transfers and demonstrate good recall of appropriate cues. Mod a to stand, min-mod a once standing. Pt continent of bowels on commode. Dependent for collin care and clothing management as maintained pt's balance. OT discussed use of AE, however at this time pt still requires sign ificant amount of cues/assist with equipment. able to assist with threading feet into LB clothing post discharge. Education on compensatory/adaptive strategies as well as bathing precautions/safety concerns. appears to have good understanding of education provided. Education OT Patient Education: Correct positioning, Disease process, Energy conservation, Instructions to caregiver, Modified ADL techniques, Progress toward Goal/Update tx plan, Purpose of tx/functional activities, Reviewed precautions, Rehab process, Safety issues, Transfer techniques, Use of adapted equipment, W/C management Teaching Recipient: Patient, Family Teaching Methods: Demonstration, Discussion Response to Teaching: Verbalize Understanding, Return Demonstration, Reinforcement Needed OT Short Term Goals Short Term Goals Time Frame: Feb 11, 2022 Eatin Oral hygiene: 3 Toileting hygiene: 3 Shower/bathe self: 2 Upper body dressin Lower body dressin Putting on/taking off footwear: 2 OT Detention Goals Proof Sorter Goals Time Frame: Feb 25, 2022 Eating (QC): 5 Oral Hygiene (QC): 5 Toileting Hygiene (QC): 4 Shower/Bathe Self (QC): 3 Upper Body Dressing (QC): 4 Lower Body Dressing (QC): 3 On/Off Footwear (QC): 2 1=Demonstrate adherence to instructed precautions during ADL tasks. 2=Patient will verbalize/demonstrate understanding of assistive devices/modifications for ADL. 3=Patient will improve strength/tolerance for activity to enable patient to perform ADL's. OT Education/Plan Problem List/Assessment Assessment: Decreased Activ Tolerance, Decreased Safety Aware, Decreased UE Strength, Dependent Transfers, Impaired Bed Mobility, Impaired Cognition, Impaired Coordination, Impaired Funct Balance, Impaired Self-Care Skills Discharge Recommendations Plan/Recommendations: Continue POC Therapy Discharge Recommendati: Other, See Comments (Home with hospice ) Treatment Plan/Plan of Care Treatment,Training & Education: Yes Patient would benefit from OT for education, treatment and training to promote independence in ADL's, mobility, safety and/or upper extremity function for ADL's. Plan of Care: ADL Retraining, Caregiver Training, Cognitive Retraining, Concurrent Therapy, Functional Mobility, Group Exercise/Act as Ind, UE Funct Exercise/Act, W/C Management Training Treatment Duration: Feb 25, 2022 Frequency: At least 5 of 7 days/Wk (IRF) Estimated Hrs Per Day: 1.5 hours per day (75-90 min/day) Agreement: Yes Rehab Potential: Poor Time/GCodes Start Time: 09:00 Stop Time: 10:15 Total Time Billed (hr/min): 75 Billed Treatment Time 1 visit ADL x2 (25 min) FA x3 (50 min) Kayla Desai OT Feb 06, 2022 10:17
--- NOTE | 2022-02-06 13:07 | Speech Therapy Daily Note ---
Speech Daily Progress Note Subjective Date Seen by Provider: Feb 06, 2022 Time Seen by Provider: 10:30 The patient was seated upright in his wheelchair, awake and alert upon entrance to his room by the clinician. The patient greeted the clinician appropriately and was agreeable to participation in the cognitive linguistic and dysphagia treatment session. The patient's is present throughout the treatment session. Objective The patient and clinician discussed the patient's safe swallowing strategies and his recent P.O. intake. Per patient's , he has increased his P.O. intake slightly and does consume more when she is able to bring his preferred items from home. The patient independently sipped on coffee via straw throughout the treatment session and did not demonstrate s/s of suspected aspiration. The clinician and patient completed safety review of his phone and how to contact emergency help. The clinician and patient walked through and practiced the steps to reach his 's phone number and dial 911 on his cell phone. The clinician requested the patient keep his cell phone on him throughout the day. Regardless of maximum clinician cueing and repetition, the patient was unable to recall the appropriate steps. Assessment Assessment Current Status: Poor Progress Treatment Plan Continue Plan of Care Speech Short Term Goals Short Term Goals Short Term Goals 1. The patient, staff, and family members will follow safe swallowing strategies with 90% accuracy, independently. 2. The patient will respond appropriately to simple yes and no questions with 75% accuracy and mild clinician verbal cueing. Speech Manager Database Administration Goals Fdc Goals 1. The patient will tolerate the least restrictive diet consistency without s/s of suspected aspiration. 2. The patient will demonstrate an improvement in cognitive linguistic skills for safe discharge to the least restrictive environment. Speech-Plan Treatment Plan Speech Therapy Treatment Plan: Continue Plan of Care Treatment Duration: Feb 12, 2022 Frequency: Modified Program (IRF) Estimated Hrs Per Day: .5 hour per day Rehab Potential: Poor Safety Risks/Education Teaching Recipient: Patient, Significant Other Teaching Methods: Discussion Response to Teaching: Reinforcement Needed Education Topics Provided: Safety Information, Swallowing Strategies Time Speech Therapy Time In: 10:30 Speech Therapy Time Out: 11:00 Total Billed Time: 30 Billed Treatment Time 1BELINDA DYST LOY, ELIZABETH ST Feb 06, 2022 13:07
[2022-02-06 16:10] VITALS: BP 137/70
[2022-02-06] MEDS: SERTRALINE 100 MG (ZOLOFT) TAB PO SCH (16:17)
[2022-02-06] MEDS: amLODIPine 5 MG (NORVASC) TAB PO SCH (16:17)
--- NOTE | 2022-02-06 17:02 | Diagnostic Imaging Report ---
INDICATION: Postoperative evaluation. COMPARISON: January 23, 2022. TECHNIQUE: Single radiograph of the right hip dated February 06, 2022. FINDINGS: Right hip arthroplasty is again identified, appearing in stable configuration than the prior examination without evidence of hardware complication based upon this single frontal view. Surgical clips are again seen overlying the lateral right hip. Moderate background vascular calcifications. Surgical changes within the lumbosacral spine are minimally visualized. No acute fracture or dislocation. No suspicious radiopaque foreign body. IMPRESSION: Right hip arthroplasty without hardware complication or acute osseous abnormality. Dictated by: Dictated on workstation # [id number]
[2022-02-06] MEDS: ACETAMINOPHEN 325 MG TABLET PO PRN (17:08)
[2022-02-06] MEDS: HYDROcodone/APAP 5 MG/325 MG (LORTAB) TAB PO PRN (18:07)
[2022-02-06 19:31] VITALS: BP 121/76
[2022-02-06] MEDS: NIACIN ER (NIASPAN) 500 MG TAB PO SCH (20:01)
[2022-02-06] MEDS: ALPRAZolam 0.5 MG (XANAX) TAB PO SCH (20:01)
[2022-02-06] MEDS: TERAZOSIN 1 MG CAP (HYTRIN) PO SCH (20:01)
[2022-02-06] MEDS: MIRABEGRON 25 MG TAB (MYRBETRIQ) PO SCH (20:01)
[2022-02-06] MEDS ORDERED: OXC5T PO (20:39)
[2022-02-06] MEDS ORDERED: GLIP5TAB13 PO (20:39)
[2022-02-06] MEDS ORDERED: SENN1TAB76 PO (20:39)
[2022-02-06] MEDS ORDERED: ALPR0.5T7 PO (20:39)
[2022-02-07] MEDS: POTASSIUM BICARB 20 MEQ (EFFER-K) TABLET PO SCH (06:33)
[2022-02-07] MEDS: inSUlin ASPART (NovoLOG) 1 UNIT/0.01 ML (CHARGE PER UNIT) SC SCH ×4 (06:33→21:29)
[2022-02-07 07:19] VITALS: BP 158/94
[2022-02-07] MEDS: LORATADINE (CLARITIN) 10 MG TAB PO SCH (09:12)
[2022-02-07] MEDS: eZETimibe 10 MG (ZETIA) TABLET PO SCH (09:12)
[2022-02-07] MEDS: LOSARTAN 100 MG (COZAAR) TABLET PO SCH (09:12)
[2022-02-07] MEDS: TAMSULOSIN 0.4 MG (FLOMAX) CAP PO SCH (09:12)
[2022-02-07] MEDS: VITAMIN D3 25 MCG (1,000 UNITS) TABLET PO SCH (09:12)
[2022-02-07] MEDS: DOCUSATE SODIUM 100 MG (COLACE) CAP PO SCH ×2 (09:12→19:44)
[2022-02-07] MEDS: PANTOPRAZOLE 20 MG TABLET (PROTONIX) PO SCH (09:12)
[2022-02-07] MEDS: tadalafiL 5 MG TABLET (NON-FORMULARY) PO SCH (09:13)
[2022-02-07] MEDS: PSEUDOEPHEDRINE HCL 30 MG (SUDAFED) TAB PO SCH ×2 (09:13→21:29)
[2022-02-07] MEDS: PREGABALIN 25 MG (LYRICA) CAPSULE PO SCH ×2 (09:13→21:30)
[2022-02-07] MEDS: MICONAZOLE 2% POWDER (DESENEX AF) 90 GM TOP SCH ×2 (09:14→21:47)
[2022-02-07] MEDS: SENNA W/DOCUSATE (SENOKOT S) TABLET PO SCH ×2 (09:15→19:44)
[2022-02-07] MEDS: polyethylene glycoL POWDER 17 GM (MIRALAX) PACK PO SCH ×2 (09:16→19:44)
--- NOTE | 2022-02-07 10:00 | Physical Therapy Daily Note ---
PT Daily Note-Current Subjective Pt. is confused this morning and asks if this is [facility], refers to her several times during the rx and needs reoriented to place and situation Pain Location: No Pain Reported Mental Status Patient Orientation: Confused Transfers SCALE: Activities may be completed with or without assistive devices. 9-Qffavivykz-ypyodlo completes the activity by him/herself with no assistance from a helper. 5-Set-up or Clean-up Assistance-helper sets up or cleans up; patient completes activity. [place] assists only prior to or following the activity. 4-Supervision or Touching Assistance-helper provides verbal cues and/or touching/steadying and/or contact guard assistance as patient completes activity. Assistance may be provided throughout the activity or intermittently. 3-Partial/Moderate Assistance-helper does LESS THAN HALF the effort. [place] lifts, holds or supports trunk or limbs, but provides less than half the effort. 2-Substantial/Maximal Assistance-helper does MORE THAN HALF the effort. [place] lifts or holds trunk or limbs and provides more than half the effort. 8-Kdtnmvshx-qsokbc does ALL the effort. Patient does none of the effort to complete the activity. Or, the assistance of 2 or more helpers is required for the patient to complete the activity. If activity was not attempted, code reason: 7-Patient Refused. 9-Not Applicable-not attempted and the patient did not perform the activity before the current illness, exacerbation or injury. 10-Not Attempted due to Environmental Limitations-(lack of equipment, weather restraints, etc.). 88-Not Attempted due to Medical Conditions or Safety Concerns. Sit to Stand (QC): 3 Chair/Xhq-gv-Doqgx Xfer(QC): 3 sit to stand from recliner and shower chair all mod assist 1-2 and instruction for wt shift etc Weight Bearing Right Lower Extremity: Right Weight Bearing/Tolerated Left Lower Extremity: Left Full Weight Bearing Gait Training Does the Patient Walk?: Yes Walk 10 feet (QC): 3 Gait Persons Needed: 1 Gait Assistive Device: FWW gait from bathroom to recliner after shower with OT following with chair in case. narrow DESHAUN, flexed at trunk, uneven step length, fatigues quickly Exercises Supine Ex: Ankle pumps, Scooting Supine Reps: 10 Seated Therapy Exercises: Sit to stand Seated Reps: 8 Treatments PT OT co Rx for functional act, showering TRFs, rashad and doff clothing, positioning and review of THR prec however pt unable to comprehend this, Co Rx secondary to frailty, debility and safety issues. Assessment Current Status: Poor Progress dependent for all mobility, more confused today PT Care Home Goals Care Home Goals PT Molded Goods Embossing Press Operator Goals Time Frame: Feb 14, 2022 Roll Left & Right (QC): 4 Sit to Lying (QC): 4 Lying-Sitting on Side/Bed(QC): 4 Sit to Stand (QC): 4 Chair/Nuk-xn-Rptdn Xfer(QC): 4 Toilet Transfer (QC): 4 Car Transfer (QC): 4 Does the Patient Walk: Yes Walk 10 feet (QC): 4 Walk 50ft with 2 Turns (QC): 4 Walk 150 ft (QC): 3 Walking 10ft on Uneven Surface: 4 1 Step (curb) (QC): 2 4 Steps (QC): 2 12 Steps (QC): 88 Picking up an Object (QC): 4 Does the Pt use WC or Scooter?: Yes Wheel 50 feet with 2 turns (QC: 5 Type: Manual Wheel 150 feet: 5 Type: Manual PT Plan Treatment/Plan Treatment Plan: Continue Plan of Care Treatment Plan: Bed Mobility, Education, Functional Activity [place], Functional Strength, Group Therapy, Gait, Safety, Therapeutic Exercise, Transfers Treatment Duration: Mar 07, 2022 Frequency: At least 5 of 7 days/Wk (IRF) Estimated Hrs Per Day: 1.5 hours per day Patient and/or Family Agrees t: Yes Safety Risks/Education Patient Education: Gait Training, Transfer Techniques, Reviewed Precautions, Correct Positioning, Disease Process, Safety Issues Teaching Recipient: Patient Teaching Methods: Discussion Response to Teaching: Verbalize Understanding, Unable to Return Demonstration, Return Demonstration, Unable to Comprehend, Reinforcement Needed Time/GCodes Time In: 900 Time Out: 1000 Total Billed Treatment Time: 60 Total Billed Treatment 1,FA45m,GT15m (60 m co Rx) STEFANIE STRATTON COIL MACHINE OPERATOR Feb 07, 2022 10:00
--- NOTE | 2022-02-07 10:05 | Occupational Ther Daily Note ---
OT Current Status-Daily Note Subjective Pt sleeping/sliding out of chair, drink spilled all over him at OT arrival. Co-treat with PT for part of treatment ([id number]) secondary to poor activity tolerance, mobility impairments, high fall risk, poor safety, cognitive deficits, and need of 2 skilled clinicians to progress indep and safety with adls and functional mobility. Mental Status/Objective Patient Orientation: Person, Confused ADL-Treatment Therapy Code Descriptions/Definitions Functional [place] Measure: 0=Not Assessed/NA 4=Minimal Assistance 1=Total Assistance 5=Supervision or Setup 2=Maximal Assistance 6=Modified [place] 3=Moderate Assistance 7=Complete IndependenceSCALE: Activities may be completed with or without assistive devices. 9-Crkrzeromw-hjuuhux completes the activity by him/herself with no assistance from a helper. 5-Set-up or Clean-up Assistance-helper sets up or cleans up; patient completes activity. [place] assists only prior to or following the activity. 4-Supervision or Touching Assistance-helper provides verbal cues and/or touching/steadying and/or contact guard assistance as patient completes activity. Assistance may be provided throughout the activity or intermittently. 3-Partial/Moderate Assistance-helper does LESS THAN HALF the effort. [place] lifts, holds or supports trunk or limbs, but provides less than half the effort. 2-Substantial/Maximal Assistance-helper does MORE THAN HALF the effort. [place] lifts or holds trunk or limbs and provides more than half the effort. 0-Rnlirinpi-jdpciq does ALL the effort. Patient does none of the effort to complete the activity. Or, the assistance of 2 or more helpers is required for the patient to complete the activity. If activity was not attempted, code reason: 7-Patient Refused. 9-Not Applicable-not attempted and the patient did not perform the activity before the current illness, exacerbation or injury. 10-Not Attempted due to Environmental Limitations-(lack of equipment, weather restraints, etc.). 88-Not Attempted due to Medical Conditions or Safety Concerns. Eating (QC): 3 Oral Hygiene (QC): 3 Shower/Bathe Self (QC): 3 Upper Body Dressing (QC): 4 Lower Body Dressing (QC): 2 On/Off Footwear: 1 Toileting Hygiene (QC): 1 Toilet Transfer (QC): 3 Pt sleeping/sliding out of chair, drink spilled all over him at OT arrival. Easy to rouse, extra time to become more attentive. Max a to scoot back in chair. Shower performed; 100% completed seated in shower w/c. Extra time and cues to initiate/terminate each step. Pt was able to wash upper body, thighs, and front collin area with cues mentioned previously. Dependent to wash below knees and buttocks. Poor sequencing and safety throughout, several cues to remain seated. Pt does report that sitting in the shower and using a held held shower is novel to him. Clothing donned seated in shower w/c. Extra time and tactile cues for sequencing when donning shirt. Max a to thread BLE's into brief/shorts. Dependent to manage over waist as he used BUE support on grab bar. Min a for balance when standing. Other Treatment Pt participated in UE AROM exercises. 1x10 all planes. AAROM at shoulder to complete full range secondary to weakness. No c/o pain with all joints. Tires easily as he immediately fell asleep after last set. Education OT Patient Education: Correct positioning, Energy conservation, Exercise program, Modified ADL techniques, Progress toward Goal/Update tx plan, Purpose of tx/functional activities, Reviewed precautions, Rehab process, Safety issues, Transfer techniques, Use of adapted equipment, W/C management Teaching Recipient: Patient Teaching Methods: Demonstration, Discussion Response to Teaching: Verbalize Understanding, Reinforcement Needed OT Short Term Goals Short Term Goals Time Frame: Feb 11, 2022 Eatin Oral hygiene: 3 Toileting hygiene: 3 Shower/bathe self: 2 Upper body dressin Lower body dressin Putting on/taking off footwear: 2 OT Risk Intern Goals Senior Care Goals Time Frame: Feb 25, 2022 Eating (QC): 5 (not met) Oral Hygiene (QC): 5 (not met) Toileting Hygiene (QC): 4 (not met) Shower/Bathe Self (QC): 3 (met) Upper Body Dressing (QC): 4 (met) Lower Body Dressing (QC): 3 (not met) On/Off Footwear (QC): 2 (not met) 1=Demonstrate adherence to instructed precautions during ADL tasks. 2=Patient will verbalize/demonstrate understanding of assistive devices/modifications for ADL. 3=Patient will improve strength/tolerance for activity to enable patient to perform ADL's. OT Education/Plan Problem List/Assessment Assessment: Decreased Activ Tolerance, Decreased Safety Aware, Decreased UE Strength, Impaired Bed Mobility, Impaired Cognition, Impaired Coordination, Impaired Funct Balance, Impaired Self-Care Skills, Restricted Funct UE ROM Discharge Recommendations Plan/Recommendations: Continue POC Therapy Discharge Recommendati: Other, See Comments (Home with hospice ) Treatment Plan/Plan of Care Treatment,Training & Education: Yes Patient would benefit from OT for education, treatment and training to promote independence in ADL's, mobility, safety and/or upper extremity function for ADL's. Plan of Care: ADL Retraining, Caregiver Training, Cognitive Retraining, Concurrent Therapy, Functional Mobility, Group Exercise/Act as Ind, UE Funct Exercise/Act, W/C Management Training Treatment Duration: Feb 25, 2022 Frequency: At least 5 of 7 days/Wk (IRF) Estimated Hrs Per Day: 1.5 hours per day (75-90 min/day) Agreement: Yes Rehab Potential: Poor Time/GCodes Start Time: 09:00 Stop Time: 10:15 Total Time Billed (hr/min): 75 Billed Treatment Time 1 visit ADL x4 (60 min) EX (15 min) Kayla Desai OT Feb 07, 2022 10:05
--- NOTE | 2022-02-07 10:25 | PM&R Progress Note ---
Subjective HPI/CC On Admission Date Seen by Provider: Feb 07, 2022 Time Seen by Provider: 10:30 Subjective/Events-last exam 02/07/2022: Pt is doing about the same Very foggy and sleeps a lot Discharge home tomorrow on hospice No other ability to modify or improve 02/06/2022: Patient doing much better Lethargic No pain is reported Reviewed meds in preparation for Thursday discharge on hospice 02/05/2022: No fever issues Plateaued with improved function so DC will be soon No falls More tired Rectal carcinoma is progressing and draining the patient Hospice at DC 02/04/2022: Doing well Low grade fever noted Septic w/u ordered No major new issues 02/03/2022: Orthostasis reported when he stood up Monitoring closely Labs reviewed, nonspecific elevated wbc at 13k No falls Eating a bit better but not by much 02/02/2022: Patient doing well overall at bedside No concerns at this time Improved appetite 02/01/2022: Doing well at bedside Eating minimally No falls No pain reported 01/31/2022: Dramatic improvement at bedside No concerns Voiding well Hemoglobin improved Completed antibiotic 01/30/2022: Patient doing much better Sitting up in chair today Pain is improved No major concerns We will check labs tomorrow 01/29/2022: Pt is doing pretty well Blood sugar was 173 last night and 111 today Doesn't eat much Oriented x2 Pain pill taken which helps Incontinent of loose stools so holding laxative Crushing meds help Review of Systems General: Fatigue, Malaise Objective Exam Vital Signs Vital Signs Date Time Temp Pulse Resp B/P (MAP) Pulse Ox O2 Delivery O2 Flow Rate FiO2 02/07/22 20:00 Nasal Cannula 2.00 02/07/22 19:23 37.0 109 20 128/71 (90) 97 Capillary Refill : General Appearance: No Apparent Distress, WD/WN, Chronically ill, Thin HEENT: PERRL/EOMI, Normal ENT Inspection, Pharynx Normal Neck: Full Range of Motion, Normal Inspection, Non Tender, Supple, Carotid Bruit Respiratory: Chest Non Tender, Lungs Clear, Normal Breath Sounds, No Accessory Muscle Use, No Respiratory Distress, Decreased Breath Sounds Cardiovascular: Regular Rate, Rhythm, No Edema, No Gallop, No JVD, No Murmur, Normal Peripheral Pulses Gastrointestinal: Normal Bowel Sounds, No Organomegaly, No Pulsatile Mass, Non Tender, Soft Back: Normal Inspection, No CVA Tenderness, No Vertebral Tenderness Extremity: Normal Capillary Refill, Normal Inspection, Normal Range of Motion, Non Tender, No Calf Tenderness, No Pedal Edema Neurologic/Psychiatric: Alert, staff radiographer II-XII Norm as Tested, Abnormal Gait, Depressed Affect, Disoriented, Motor Weakness Skin: Normal Color, Warm/Dry Lymphatic: No Adenopathy Results/Procedures Lab Patient resulted labs reviewed. FIM Transfers Therapy Code Descriptions/Definitions Functional [place] Measure: 0=Not Assessed/NA 4=Minimal Assistance 1=Total Assistance 5=Supervision or Setup 2=Maximal Assistance 6=Modified [place] 3=Moderate Assistance 7=Complete IndependenceSCALE: Activities may be completed with or without assistive devices. 1-Umzmeefwss-aplurwc completes the activity by him/herself with no assistance from a helper. 5-Set-up or Clean-up Assistance-helper sets up or cleans up; patient completes activity. [place] assists only prior to or following the activity. 4-Supervision or Touching Assistance-helper provides verbal cues and/or touching/steadying and/or contact guard assistance as patient completes activity. Assistance may be provided throughout the activity or intermittently. 3-Partial/Moderate Assistance-helper does LESS THAN HALF the effort. [place] lifts, holds or supports trunk or limbs, but provides less than half the effort. 2-Substantial/Maximal Assistance-helper does MORE THAN HALF the effort. [place] lifts or holds trunk or limbs and provides more than half the effort. 6-Uzktvhkkh-xobiva does ALL the effort. Patient does none of the effort to complete the activity. Or, the assistance of 2 or more helpers is required for the patient to complete the activity. If activity was not attempted, code reason: 7-Patient Refused. 9-Not Applicable-not attempted and the patient did not perform the activity before the current illness, exacerbation or injury. 10-Not Attempted due to Environmental Limitations-(lack of equipment, weather restraints, etc.). 88-Not Attempted due to Medical Conditions or Safety Concerns. Roll Left to Right (QC): 3 Sit to Lying (QC): 3 Sit to Stand (QC): 3 Chair/Rzd-fz-Fjree Xfer(QC): 3 Car Transfer (QC): 2 Gait Training Does the Patient Walk?: Yes Distance: 6'x3 Walk 10 feet (QC): 3 Walk 50 ft with 2 Turns(QC): 88 Walk 150 ft (QC): 88 Walking 10ft/uneven surface-QC: 88 Gait Persons Needed: 1 Gait Assistive Device: FWW Wheelchair Training Does the Pt Use a Wheelchair?: Yes Distance: 50 Wheel 50 ft with 2 turns (QC): 3 Wheel 150 ft (QC): 88 Type of Wheelchair: Manual Stair Training #of Steps: 0 1 Step (curb) (QC): 88 4 Steps (QC): 88 12 Steps (QC): 88 Balance Picking up an Object (QC): 88 ADL-Treatment Eating (QC): 3 Oral Hygiene (QC): 3 Shower/Bathe Self (QC): 3 Upper Body Dressing (QC): 4 Lower Body Dressing (QC): 2 On/Off Footwear (QC): 1 Toileting Hygiene (QC): 1 Toilet Transfer (QC): 3 Assessment/Plan Assessment and Plan Assess & Plan/Chief Complaint Assessment: Status post right hip fracture with post op complication of acute respiratory failure due to PNA requiring intubation Dementia TIA history Smoker Hypertension Hyperlipidemia Chronic constipation BPH New urinary incontinence Diabetes mellitus Rectal carcinoma s/p radiation only not tolerated well via [facility] Anemia s/p transfusions of 2 units of blood KATH on admit [place] cath in place Neuropathy Plan: PT OT Pain control Monitor closely 01/29/2022: Monitor hemoglobin Pain control Improve transfers and strengthening to help when he returns home on hospice 01/30/2022: Much improved Continue aggressive rehab in order to return back home to hospice Low grade fever prompting w/u 02/04/22 01/31/2022: Much improved Completed antibiotic 02/01/2022: Monitor closely Supportive care 02/02/2022: Supportive care Increase oral nutrition 02/03/2022: Continue aggressive rehab DC on hospice 02/04/2022: Monitor closely Supportive care 02/05/2022: DC soon on Hospice 02/06/2022: Discharge home on hospice on Thursday02/07/2022: Discharge home on hospice on Thursday (1) Closed right hip fracture Status: Acute (2) Diabetes mellitus Status: Chronic (3) Dementia Status: Chronic (4) Hypertension (5) BPH (benign prostatic hyperplasia) Status: Chronic (6) DVT prophylaxis Status: Acute (7) Acute kidney injury superimposed on chronic kidney disease (8) Primary hypertension (9) Mixed hyperlipidemia (10) Aortic regurgitation (11) Pulmonary hypertension (12) Smoker (13) Hyperlipidemia (14) Frailty LENNY CAVANAUGH DO Feb 07, 2022 10:25
--- NOTE | 2022-02-07 13:36 | Physical Therapy Daily Note ---
PT Daily Note-Current Subjective Pt. with tray in front but pt. with eyes closed, asleep, awakens easily, agrees to try to eat more and do LE ex in seated position Pain Location: No Pain Reported Mental Status Patient Orientation: Confused Attachments: Oxygen Transfers SCALE: Activities may be completed with or without assistive devices. 9-Whawrdehdp-znvbnwc completes the activity by him/herself with no assistance from a helper. 5-Set-up or Clean-up Assistance-helper sets up or cleans up; patient completes activity. [place] assists only prior to or following the activity. 4-Supervision or Touching Assistance-helper provides verbal cues and/or touching/steadying and/or contact guard assistance as patient completes activity. Assistance may be provided throughout the activity or intermittently. 3-Partial/Moderate Assistance-helper does LESS THAN HALF the effort. [place] lifts, holds or supports trunk or limbs, but provides less than half the effort. 2-Substantial/Maximal Assistance-helper does MORE THAN HALF the effort. [place] lifts or holds trunk or limbs and provides more than half the effort. 7-[place]-ebnebf does ALL the effort. Patient does none of the effort to complete the activity. Or, the assistance of 2 or more helpers is required for the patient to complete the activity. If activity was not attempted, code reason: 7-Patient Refused. 9-Not Applicable-not attempted and the patient did not perform the activity before the current illness, exacerbation or injury. 10-Not Attempted due to Environmental Limitations-(lack of equipment, weather restraints, etc.). 88-Not Attempted due to Medical Conditions or Safety Concerns. Weight Bearing Right Lower Extremity: Right Weight Bearing/Tolerated Left Lower Extremity: Left Full Weight Bearing Exercises Seated Therapy Exercises: Ankle pumps, Long arc quads, Hip abd/add Seated Reps: 12 Treatments pt. required min to mod assist to eat pudding and some carrots , reaching across tray etc. pt. also participated in LE ex as above Assessment Current Status: Poor Progress listless PT Parts Department Supervisor Goals Parts Department Supervisor Goals PT Fpc Goals Time Frame: Feb 14, 2022 Roll Left & Right (QC): 4 Sit to Lying (QC): 4 Lying-Sitting on Side/Bed(QC): 4 Sit to Stand (QC): 4 Chair/Pax-ln-Csohi Xfer(QC): 4 Toilet Transfer (QC): 4 Car Transfer (QC): 4 Does the Patient Walk: Yes Walk 10 feet (QC): 4 Walk 50ft with 2 Turns (QC): 4 Walk 150 ft (QC): 3 Walking 10ft on Uneven Surface: 4 1 Step (curb) (QC): 2 4 Steps (QC): 2 12 Steps (QC): 88 Picking up an Object (QC): 4 Does the Pt use WC or Scooter?: Yes Wheel 50 feet with 2 turns (QC: 5 Type: Manual Wheel 150 feet: 5 Type: Manual PT Plan Treatment/Plan Treatment Plan: Continue Plan of Care Treatment Plan: Bed Mobility, Education, Functional Activity [place], Functional Strength, Group Therapy, Gait, Safety, Therapeutic Exercise, Transfers Treatment Duration: Mar 07, 2022 Frequency: At least 5 of 7 days/Wk (IRF) Estimated Hrs Per Day: 1.5 hours per day Patient and/or Family Agrees t: Yes Safety Risks/Education Patient Education: Correct Positioning Time/GCodes Time In: 1245 Time Out: 1300 Total Billed Treatment Time: 15 Total Billed Treatment 1,EX 15m STEFANIE STRATTON ELECTROPLATER HELPER Feb 07, 2022 13:36
--- NOTE | 2022-02-07 13:51 | Speech Therapy Daily Note ---
Speech Daily Progress Note Subjective Date Seen by Provider: Feb 07, 2022 Time Seen by Provider: 12:00 The patient was reclined in his chair, awake and alert upon entrance to his room by the clinician. The patient greeted the clinician appropriately and was agreeable to participation in the cognitive linguistic and dysphagia therapy session. The patient's lunch was present, therefore, the PCT aided the clinician in seating the patient upright for safe swallowing. Objective The clinician prepared the patient's lunch for him (meal set-up) and discussed safe swallowing strategies throughout the meal. The patient was able to self-fed and did not display s/s of suspected aspiration. Expression of Ideas/Wants: Frequently (2) Understanding Verbal Content: Sometimes Understands(2) Brief Interview-Mental Status: Yes Repetition of Three Words: None (0) Temporal Orientation: Year: Correct (3) Temporal Orientation: Month: Missed by 6 days-1 month (1) Temporal Orientation: Day: Incorrect or No Answer(0) Recall : Wear to say "Sock": No, could not recall (0) Recall : Color: No, could not recall (0) Recall : Bed: No, could not recall (0) Memory/Recall Ability: That he or she is in a hsp/hsp unit Assessment Assessment Current Status: Poor Progress Treatment Plan Discontinue ST Speech Short Term Goals Short Term Goals Short Term Goals 1. The patient, staff, and family members will follow safe swallowing strategies with 90% accuracy, independently. 2. The patient will respond appropriately to simple yes and no questions with 75% accuracy and mild clinician verbal cueing. 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 The patient will tolerate the least restrictive diet consistency without s/s of suspected aspiration. 2. The patient will demonstrate an improvement in cognitive linguistic skills for safe discharge to the least restrictive environment. Speech-Plan Treatment Plan Speech Therapy Treatment Plan: Discontinue ST Treatment Duration: Feb 12, 2022 Frequency: Modified Program (IRF) Estimated Hrs Per Day: .5 hour per day Rehab Potential: Poor Safety Risks/Education Teaching Recipient: Patient Teaching Methods: Discussion Response to Teaching: Reinforcement Needed Education Topics Provided: Safe Swallowing Strategies Time Speech Therapy Time In: 12:00 Speech Therapy Time Out: 12:30 Total Billed Time: 30 Billed Treatment Time 1, VINEET TREVINO [facility] Feb 07, 2022 13:51
[2022-02-07 15:54] VITALS: BP 126/60
[2022-02-07] MEDS: SERTRALINE 100 MG (ZOLOFT) TAB PO SCH (15:55)
[2022-02-07] MEDS: amLODIPine 5 MG (NORVASC) TAB PO SCH (15:55)
[2022-02-07] MEDS: HYDROcodone/APAP 5 MG/325 MG (LORTAB) TAB PO PRN (18:53)
[2022-02-07 19:23] VITALS: BP 128/71
[2022-02-07] MEDS: ALPRAZolam 0.5 MG (XANAX) TAB PO SCH (21:29)
[2022-02-07] MEDS: TERAZOSIN 1 MG CAP (HYTRIN) PO SCH (21:30)
[2022-02-07] MEDS: MIRABEGRON 25 MG TAB (MYRBETRIQ) PO SCH (21:30)
[2022-02-07] MEDS: NIACIN ER (NIASPAN) 500 MG TAB PO SCH (21:30)
--- NOTE | 2022-02-08 06:22 | Discharge Summary ---
Diagnosis/Chief Complaint Date of Admission Jan 28, 2022 at 09:50 Date of Discharge Discharge Date: Feb 08, 2022 Discharge Diagnosis Assessment: Status post right hip fracture with post op complication of acute respiratory failure due to PNA requiring intubation Dementia TIA history Smoker Hypertension Hyperlipidemia Chronic constipation BPH New urinary incontinence Diabetes mellitus Rectal carcinoma s/p radiation only not tolerated well via [facility] Anemia s/p transfusions of 2 units of blood KATH on admit [place] cath in place Neuropathy Plan: PT OT Pain control Monitor closely 01/29/2022: Monitor hemoglobin Pain control Improve transfers and strengthening to help when he returns home on hospice 01/30/2022: Much improved Continue aggressive rehab in order to return back home to hospice Low grade fever prompting w/u 02/04/22 01/31/2022: Much improved Completed antibiotic 02/01/2022: Monitor closely Supportive care 02/02/2022: Supportive care Increase oral nutrition 02/03/2022: Continue aggressive rehab DC on hospice 02/04/2022: Monitor closely Supportive care 02/05/2022: DC soon on Hospice 02/06/2022: Discharge home on hospice on Thursday02/07/2022: Discharge home on hospice on Thursday (1) Closed right hip fracture Status: Acute (2) Diabetes mellitus Status: Chronic (3) Dementia Status: Chronic (4) Hypertension (5) BPH (benign prostatic hyperplasia) Status: Chronic (6) DVT prophylaxis Status: Acute (7) Acute kidney injury superimposed on chronic kidney disease (8) Primary hypertension (9) Mixed hyperlipidemia (10) Aortic regurgitation (11) Pulmonary hypertension (12) Smoker (13) Hyperlipidemia (14) Frailty Discharge Summary Discharge Physical Examination Allergies: Coded Allergies: [id number] Reductase Inhibitor (Verified Allergy, Unknown, 01/21/22) Vitals & I&Os Vital Signs Date Time Temp Pulse Resp B/P (MAP) Pulse Ox O2 Delivery O2 Flow Rate FiO2 02/08/22 13:30 37.0 105 18 156/86 98 Nasal Cannula 2.00 General Appearance: Alert, Oriented X3, Cooperative Respiratory: Clear to Auscultation Cardiovascular: Regular Rate Psych/Mental Status: Mental Status NL Hospital Course Was the Problem List Reviewed?: Yes Patient had a lengthy course after admitted from resp failure following hip fracture repair due to pneumonia. H/o dementia and progressive neuropathy and rectal carcinoma precluded an immense amount of recovery but the decision had been made to admit to hospice at [place] so we focused on decreasing care burden for and that was successful and completed abx treatment during stay and overall labs remained stable and was DC in stable condition but poor prognosis assessed. Labs (last 24 hrs) Laboratory Tests 01/28/22 11:12: Glucometer 151H 01/28/22 15:19: Glucometer 190H 01/28/22 20:28: Glucometer 173H 01/29/22 05:25: Glucometer 111H 01/29/22 05:35: White Blood Count 8.7, Red Blood Count 2.55L, Hemoglobin 7.5L, Hematocrit 23L, M jason Corpuscular Volume 89, Mean Corpuscular Hemoglobin 29, Mean Corpuscular Hemoglobin Concent 33, Red Cell Distribution Width 15.9H, Platelet Count 315, Mean Platelet Volume 9.9, Immature Granulocyte % (Auto) 3, Neutrophils (%) (Auto) 74, Lymphocytes (%) (Auto) 10L, Monocytes (%) (Auto) 11, Eosinophils (%) (Auto) 2, Basophils (%) (Auto) 1, Neutrophils # (Auto) 6.5, Lymphocytes # (Auto) 0.9L, Monocytes # (Auto) 1.0, Eosinophils # (Auto) 0.2, Basophils # (Auto) 0.1, Immature Granulocyte # (Auto) 0.2H, Sodium Level 143, Potassium Level 3.3L, Chloride Level 110H, Carbon Dioxide Level 21, Anion Gap 12, Blood Urea Nitrogen 17, Creatinine 1.15, Estimat Glomerular Filtration Rate 66, BUN/Creatinine Ratio 15, Glucose Level 104, Calcium Level 9.2, Corrected Calcium 10.0, Total Bilirubin 1.0, Aspartate Amino Transf (AST/SGOT) 26, Alanine Aminotransferase (ALT/SGPT) 28, Alkaline Phosphatase 64, Total Protein 5.8L, Albumin 3.0L 01/29/22 10:48: Glucometer 144H 01/29/22 16:29: Glucometer 230H 01/29/22 20:33: Glucometer 156H 01/30/22 05:54: Glucometer 50*L 01/30/22 06:37: Glucometer 72 01/30/22 10:47: Glucometer 135H 01/30/22 15:58: Glucometer 228H 01/30/22 20:27: Glucometer 210H 01/31/22 05:35: Glucometer 183H 01/31/22 06:35: White Blood Count 8.7, Red Blood Count 2.78L, Hemoglobin 8.2L, Hematocrit 25L, Mean Corpuscular Volume 90, Mean Corpuscular Hemoglobin 30, Mean Corpuscular Hemoglobin Concent 33, Red Cell Distribution Width 15.7H, Platelet Count 433H, Mean Platelet Volume 9.8, Immature Granulocyte % (Auto) 3, Neutrophils (%) (Auto) 76H, Lymphocytes (%) (Auto) 10L, Monocytes (%) (Auto) 10, Eosinophils (%) (Auto) 2, Basophils (%) (Auto) 0, Neutrophils # (Auto) 6.5, Lymphocytes # (Auto) 0.8L, Monocytes # (Auto) 0.8, Eosinophils # (Auto) 0.2, Basophils # (Auto) 0.0, Immature Granulocyte # (Auto) 0.3H, Sodium Level 140, Potassium Level 4.0, Chloride Level 108H, Carbon Dioxide Level 18L, Anion Gap 14, Blood Urea Nitrogen 17, Creatinine 1.07, Estimat Glomerular Filtration Rate 72, BUN/Creatinine Ratio 16, Glucose Level 205H, Calcium Level 9.5, Corrected Calcium 10.3H, Total B ilirubin 1.3H, Aspartate Amino Transf (AST/SGOT) 24, Alanine Aminotransferase (ALT/SGPT) 37, Alkaline Phosphatase 82, Total Protein 6.1L, Albumin 3.0L 01/31/22 10:43: Glucometer 210H 01/31/22 15:44: Glucometer 214H 01/31/22 20:03: Glucometer 228H 02/01/22 06:02: Glucometer 208H 02/01/22 10:53: Glucometer 173H 02/01/22 15:29: Glucometer 241H 02/01/22 20:03: Glucometer 356H 02/02/22 05:34: Glucometer 244H 02/02/22 10:47: Glucometer 313H 02/02/22 15:19: Glucometer 264H 02/02/22 20:10: Glucometer 268H 02/03/22 05:38: White Blood Count 13.1H, Red Blood Count 2.88L, Hemoglobin 8.5L, Hematocrit 26L, Mean Corpuscular Volume 89, Mean Corpuscular Hemoglobin 30, Mean Corpuscular Hemoglobin Concent 33, Red Cell Distribution Width 15.3H, Platelet Count 626H, Mean Platelet Volume 9.6, Immature Granulocyte % (Auto) 3, Neutrophils (%) (Auto) 78H, Lymphocytes (%) (Auto) 7L, Monocytes (%) (Auto) 11, Eosinophils (%) (Auto) 1, Basophils (%) (Auto) 0, Neutrophils # (Auto) 10.2H, Lymphocytes # (Auto) 0.9L, Monocytes # (Auto) 1.4H, Eosinophils # (Auto) 0.1, Basophils # (Auto) 0.1, Immature Granulocyte # (Auto) 0.4H, Sodium Level 139, Potassium Level 3.4L, Chloride Level 106, Carbon Dioxide Level 20L, Anion Gap 13, Blood Urea Nitrogen 16, Creatinine 1.34H, Estimat Glomerular Filtration Rate 55, BUN/Creatinine Ratio 12, Glucose Level 325H, Calcium Level 9.1, Corrected Calcium 9.8, Total Bilirubin 1.2H, Aspartate Amino Transf (AST/SGOT) 19, Alanine Aminotransferase (ALT/SGPT) 37, Alkaline Phosphatase 89, Total Protein 6.1L, Albumin 3.1L 02/03/22 05:47: Glucometer 300H 02/03/22 10:54: Glucometer 380H 02/03/22 15:47: Glucometer 351H 02/03/22 20:21: Glucometer 300H 02/04/22 05:46: Glucometer 240H 02/04/22 10:45: Glucometer 272H 02/04/22 10:50: White Blood Count 11.5H, Red Blood Count 2.84L, Hemoglobin 8.4L, Hematocrit 26L, Mean Corpuscular Volume 90, Mean Corpuscular Hemoglobin 30, Mean Corpuscular Hemoglobin Concent 33, Red Cell Distribution Width 15.6H, Platelet Count 601H, Mean Platelet Volume 9.6, Immature Granulocyte % (Auto) 2, Neutrophils (%) (Auto) 80H, Lymphocytes (%) (Auto) 7L, Monocytes (%) (Auto) 9, Eosinophils (%) (Auto) 2, Basophils (%) (Auto) 0, Neutrophils # (Auto) 9.2H, Lymphocytes # (Auto) 0.8L, Monocytes # (Auto) 1.0, Eosinophils # (Auto) 0.2, Basophils # (Auto) 0.0, Immature Granulocyte # (Auto) 0.2H, Neutrophils % (Manual) 85, Lymphocytes % (Manual) 6, Monocytes % (Manual) 7, Eosinophils % (Manual) 2, Blood Morphology Comment NORMAL, Sodium Level 142, Potassium Level 3.5L, Chloride Level 107, Carbon Dioxide Level 22, Anion Gap 13, Blood Urea Nitrogen 19H, Creatinine 1.19, Estimat Glomerular Filtration Rate 63, BUN/Creatinine Ratio 16, Glucose Level 271H, Calcium Level 9.4, Corrected Calcium 10.1, Total Bilirubin 1.2H, Aspartate Amino Transf (AST/SGOT) 17, Alanine Aminotransferase (ALT/SGPT) 30, Alkaline Phosphatase 93, Total Protein 6.2L, Albumin 3.1L, Procalcitonin 0.15H 02/04/22 15:31: Glucometer 339H 02/04/22 15:45: Urine Color YELLOW, Urine Clarity CLEAR, Urine pH 6.5, Urine Specific [place] 1.010L, Urine Protein 1+H, Urine Glucose (UA) 3+H, Urine Ketones TRACEH, Urine Nitrite NEGATIVE, Urine Bilirubin NEGATIVE, Urine Urobilinogen 0.2, Urine Leukocyte Esterase NEGATIVE, Urine RBC (Auto) TRACE-IH, Urine RBC NONE, Urine WBC 0-2, Urine Squamous Epithelial Cells NONE, Urine Renal Epithelial Cells NONE, Urine Crystals NONE, Urine Bacteria NEGATIVE, Urine Casts NONE, Urine Mucus SMALLH, Urine Culture Indicated NO 02/04/22 20:08: Glucometer 248H 02/05/22 06:16: Glucometer 57*L 02/05/22 06:53: Glucometer 57*L 02/05/22 07:42: Glucometer 75 02/05/22 09:45: Glucometer 124H 02/05/22 10:42: Glucometer 159H 02/05/22 16:08: Glucometer 285H 02/05/22 20:33: Glucometer 208H 02/06/22 05:23: Glucometer 213H 02/06/22 10:51: Glucometer 229H 02/06/22 15:18: Glucometer 269H 02/06/22 20:27: Glucometer 253H 02/07/22 05:34: Glucometer 118H 02/07/22 10:49: Glucometer 277H 02/07/22 15:16: Glucometer 249H 02/07/22 20:13: Glucometer 191H 02/08/22 05:34: Glucometer 157H 02/08/22 10:56: Glucometer 205H Pending Labs Laboratory Tests 01/28/22 11:12: Glucometer 151 01/28/22 15:19: Glucometer 190 01/28/22 20:28: Glucometer 173 01/29/22 05:25: Glucometer 111 01/29/22 05:35: White Blood Count 8.7, Red Blood Count 2.55, Hemoglobin 7.5, Hematocrit 23, Mean Corpuscular Volume 89, Mean Corpuscular Hemoglobin 29, Mean Corpuscular Hemoglobin Concent 33, Red Cell Distribution Width 15.9, Platelet Count 315, Mean Platelet Volume 9.9, Immature Granulocyte % (Auto) 3, Neutrophils (%) (Auto) 74, Lymphocytes (%) (Auto) 10, Monocytes (%) (Auto) 11, Eosinophils (%) (Auto) 2, Basophils (%) (Auto) 1, Neutrophils # (Auto) 6.5, Lymphocytes # (Auto) 0.9, Monocytes # (Auto) 1.0, Eosinophils # (Auto) 0.2, Basophils # (Auto) 0.1, Immature Granulocyte # (Auto) 0.2, Sodium Level 143, Potassium Level 3.3, Chloride Level 110, Carbon Dioxide Level 21, Anion Gap 12, Blood Urea Nitrogen 17, Creatinine 1.15, Estimat Glomerular Filtration Rate 66, BUN/Creatinine Ratio 15, Glucose Level 104, Calcium Level 9.2, Corrected Calcium 10.0, Total Bilirubin 1.0, Aspartate Amino Transf (AST/SGOT) 26, Alanine Aminotransferase (ALT/SGPT) 28, Alkaline Phosphatase 64, Total Protein 5.8, Albumin 3.0 01/29/22 10:48: Glucometer 144 01/29/22 16:29: Glucometer 230 01/29/22 20:33: Glucometer 156 01/30/22 05:54: Glucometer 50 01/30/22 06:37: Glucometer 72 01/30/22 10:47: Glucometer 135 01/30/22 15:58: Glucometer 228 01/30/22 20:27: Glucometer 210 01/31/22 05:35: Glucometer 183 01/31/22 06:35: White Blood Count 8.7, Red Blood Count 2.78, Hemoglobin 8.2, Hematocrit 25, Mean Corpuscular Volume 90, Mean Corpuscular Hemoglobin 30, Mean Corpuscular Hemoglobin Concent 33, Red Cell Distribution Width 15.7, Platelet Count 433, Mean Platelet Volume 9.8, Immature Granulocyte % (Auto) 3, Neutrophils (%) (Auto) 76, Lymphocytes (%) (Auto) 10, Monocytes (%) (Auto) 10, Eosinophils (%) (Auto) 2, Basophils (%) (Auto) 0, Neutrophils # (Auto) 6.5, Lymphocytes # (Auto) 0.8, Monocytes # (Auto) 0.8, Eosinophils # (Auto) 0.2, Basophils # (Auto) 0.0, Immature Granulocyte # (Auto) 0.3, Sodium Level 140, Potassium Level 4.0, Chloride Level 108, Carbon Dioxide Level 18, Anion Gap 14, Blood Urea Nitrogen 17, Creatinine 1.07, Estimat Glomerular Filtration Rate 72, BUN/Creatinine Ratio 16, Glucose Level 205, Calcium Level 9.5, Corrected Calcium 10.3, Total Bilirubin 1.3, Aspartate Amino Transf (AST/SGOT) 24, Alanine Aminotransferase (ALT/SGPT) 37, Alkaline Phosphatase 82, Total Protein 6.1, Albumin 3.0 01/31/22 10:43: Glucometer 210 01/31/22 15:44: Glucometer 214 01/31/22 20:03: Glucometer 228 02/01/22 06:02: Glucometer 208 02/01/22 10:53: Glucometer 173 02/01/22 15:29: Glucometer 241 02/01/22 20:03: Glucometer 356 02/02/22 05:34: Glucometer 244 02/02/22 10:47: Glucometer 313 02/02/22 15:19: Glucometer 264 02/02/22 20:10: Glucometer 268 02/03/22 05:38: White Blood Count 13.1, Red Blood Count 2.88, Hemoglobin 8.5, Hematocrit 26, Mean Corpuscular Volume 89, Mean Corpuscular Hemoglobin 30, Mean Corpuscular Hemoglobin Concent 33, Red Cell Distribution Width 15.3, Platelet Count 626, Mean Platelet Volume 9.6, Immature Granulocyte % (Auto) 3, Neutrophils (%) (Auto) 78, Lymphocytes (%) (Auto) 7, Monocytes (%) (Auto) 11, Eosinophils (%) (Auto) 1, Basophils (%) (Auto) 0, Neutrophils # (Auto) 10.2, Lymphocytes # (Auto) 0.9, Monocytes # (Auto) 1.4, Eosinophils # (Auto) 0.1, Basophils # (Auto) 0.1, Immature Granulocyte # (Auto) 0.4, Sodium Level 139, Potassium Level 3.4, Chloride Level 106, Carbon Dioxide Level 20, Anion Gap 13, Blood Urea Nitrogen 16, Creatinine 1.34, Estimat Glomerular Filtration Rate 55, BUN/Creatinine Ratio 12, Glucose Level 325, Calcium Level 9.1, Corrected Calcium 9.8, Total Bilirubin 1.2, Aspartate Amino Transf (AST/SGOT) 19, Alanine Aminotransferase (ALT/SGPT) 37, Alkaline Phosphatase 89, Total Protein 6.1, Albumin 3.1 02/03/22 05:47: Glucometer 300 02/03/22 10:54: Glucometer 380 02/03/22 15:47: Glucometer 351 02/03/22 20:21: Glucometer 300 02/04/22 05:46: Glucometer 240 02/04/22 10:45: Glucometer 272 02/04/22 10:50: White Blood Count 11.5, Red Blood Count 2.84, Hemoglobin 8.4, Hematocrit 26, Mean Corpuscular Volume 90, Mean Corpuscular Hemoglobin 30, Mean Corpuscular Hemoglobin Concent 33, Red Cell Distribution Width 15.6, Platelet Count 601, Mean Platelet Volume 9.6, Immature Granulocyte % (Auto) 2, Neutrophils (%) (Au to) 80, Lymphocytes (%) (Auto) 7, Monocytes (%) (Auto) 9, Eosinophils (%) (Auto) 2, Basophils (%) (Auto) 0, Neutrophils # (Auto) 9.2, Lymphocytes # (Auto) 0.8, Monocytes # (Auto) 1.0, Eosinophils # (Auto) 0.2, Basophils # (Auto) 0.0, Immature Granulocyte # (Auto) 0.2, Neutrophils % (Manual) 85, Lymphocytes % (Manual) 6, Monocytes % (Manual) 7, Eosinophils % (Manual) 2, Blood Morphology Comment NORMAL, Sodium Level 142, Potassium Level 3.5, Chloride Level 107, Carbon Dioxide Level 22, Anion Gap 13, Blood Urea Nitrogen 19, Creatinine 1.19, Estimat Glomerular Filtration Rate 63, BUN/Creatinine Ratio 16, Glucose Level 271, Calcium Level 9.4, Corrected Calcium 10.1, Total Bilirubin 1.2, Aspartate Amino Transf (AST/SGOT) 17, Alanine Aminotransferase (ALT/SGPT) 30, Alkaline Phosphatase 93, Total Protein 6.2, Albumin 3.1, Procalcitonin 0.15 02/04/22 15:31: Glucometer 339 02/04/22 15:45: Urine Color YELLOW, Urine Clarity CLEAR, Urine pH 6.5, Urine Specific [place] 1.010, Urine Protein 1+, Urine Glucose (UA) 3+, Urine Ketones TRACE, Urine Nitrite NEGATIVE, Urine Bilirubin NEGATIVE, Urine Urobilinogen 0.2, Urine Leukocyte Esterase NEGATIVE, Urine RBC (Auto) TRACE-I, Urine RBC NONE, Urine WBC 0-2, Urine Squamous Epithelial Cells NONE, Urine Renal Epithelial Cells NONE, Urine Crystals NONE, Urine Bacteria NEGATIVE, Urine Casts NONE, Urine Mucus SMALL, Urine Culture Indicated NO 02/04/22 20:08: Glucometer 248 02/05/22 06:16: Glucometer 57 02/05/22 06:53: Glucometer 57 02/05/22 07:42: Glucometer 75 02/05/22 09:45: Glucometer 124 02/05/22 10:42: Glucometer 159 02/05/22 16:08: Glucometer 285 02/05/22 20:33: Glucometer 208 02/06/22 05:23: Glucometer 213 02/06/22 10:51: Glucometer 229 02/06/22 15:18: Glucometer 269 02/06/22 20:27: Glucometer 253 02/07/22 05:34: Glucometer 118 02/07/22 10:49: Glucometer 277 02/07/22 15:16: Glucometer 249 02/07/22 20:13: Glucometer 191 02/08/22 05:34: Glucometer 157 02/08/22 10:56: Glucometer 205 Discharge Home Medications: Active Scripts Active Glipizide 5 Mg Tablet 2.5 Mg PO BID Stool Softener-Laxative Tablet (Sennosides/Docusate Sodium) 8.6 Mg-50 Mg Tablet 1 Ea PO BID Oxyir Tablet (Oxycodone HCl) 5 Mg Tab 5 Mg PO BID PRN Alprazolam 0.5 Mg Tablet 0.5 Mg PO HS Reported Omeprazole 20 Mg Capsule.dr 20 Mg PO DAILY Tadalafil 5 Mg Tablet 5 Mg PO DAILY Pregabalin 25 Mg Capsule 25 Mg PO BID Multivitamin 1 Each Tablet 1 Each PO DAILY Vitamin B-12 (Cyanocobalamin (Vitamin B-12)) 2,500 Mcg Tab.subl 2,500 Mcg SL DAILY Zinc (Zinc Gluconate) 50 Mg Tablet 50 Mg PO DAILY Vitamin C (Ascorbate Calcium) 500 Mg Tablet 500 Mg PO DAILY Myrbetriq (Mirabegron) 50 Mg Tab.er.24h 50 Mg PO HS Clopidogrel (Clopidogrel Bisulfate) 75 Mg Tablet 75 Mg PO 1500 Sertraline HCl 100 Mg Tablet 100 Mg PO 1500 Vitamin D3 (Cholecalciferol (Vitamin D3)) 25 Mcg (1000 Unit) Tablet 25 Mcg PO DAILY Flomax (Tamsulosin HCl) 0.4 Mg Cap 0.4 Mg PO DAILY Zetia (Ezetimibe) 10 Mg Tablet 10 Mg PO DAILY Cetirizine-Pse ER 5-120 mg Tab (Cetirizine HCl/Pseudoephedrine) 5 Mg-120 Mg Tab.er.12h 1 Tab PO Q12H Excedrin Extra Strength Caplet (Aspirin/Acetaminophen/Caffeine) 1 Each Tablet 1- 2 Tab PO BID PRN Saw Panacea 450 mg Capsule (Saw Panacea Fruit/Zinc Picoli) 450 Mg-15 Mg Capsule 1 Cap PO DAILY Niacin 500 mg Capsule (Niacin (Inositol Niacinate)) 500 Mg Capsule 500 Mg PO HS Amlodipine Besylate 5 Mg Tablet 5 Mg PO 1500 Terazosin HCl 2 Mg Capsule 2 Mg PO HS Losartan Potassium 100 Mg Tablet 100 Mg PO DAILY Instructions to patient/family Please see electronic discharge instructions given to patient. Diagnosis/Problems Diagnosis/Problems (1) Closed right hip fracture Status: Acute (2) Diabetes mellitus Status: Chronic (3) Dementia Status: Chronic (4) Hypertension (5) BPH (benign prostatic hyperplasia) Status: Chronic (6) DVT prophylaxis Status: Acute (7) Acute kidney injury superimposed on chronic kidney disease (8) Primary hypertension (9) Mixed hyperlipidemia (10) Aortic regurgitation (11) Pulmonary hypertension (12) Smoker (13) Hyperlipidemia (14) Frailty LENNY CAVANAUGH DO Feb 08, 2022 06:22
[2022-02-08] MEDS: POTASSIUM BICARB 20 MEQ (EFFER-K) TABLET PO SCH (06:43)
[2022-02-08] MEDS: inSUlin ASPART (NovoLOG) 1 UNIT/0.01 ML (CHARGE PER UNIT) SC SCH ×2 (06:43→12:00)
[2022-02-08 07:10] VITALS: BP 156/86
[2022-02-08] MEDS: tadalafiL 5 MG TABLET (NON-FORMULARY) PO SCH (08:41)
[2022-02-08] MEDS: LOSARTAN 100 MG (COZAAR) TABLET PO SCH (08:42)
[2022-02-08] MEDS: PANTOPRAZOLE 20 MG TABLET (PROTONIX) PO SCH (08:42)
[2022-02-08] MEDS: TAMSULOSIN 0.4 MG (FLOMAX) CAP PO SCH (08:42)
[2022-02-08] MEDS: LORATADINE (CLARITIN) 10 MG TAB PO SCH (08:42)
[2022-02-08] MEDS: MICONAZOLE 2% POWDER (DESENEX AF) 90 GM TOP SCH (08:42)
[2022-02-08] MEDS: eZETimibe 10 MG (ZETIA) TABLET PO SCH (08:42)
[2022-02-08] MEDS: VITAMIN D3 25 MCG (1,000 UNITS) TABLET PO SCH (08:43)
[2022-02-08] MEDS: PREGABALIN 25 MG (LYRICA) CAPSULE PO SCH (08:43)
[2022-02-08] MEDS: PSEUDOEPHEDRINE HCL 30 MG (SUDAFED) TAB PO SCH (08:43)
[2022-02-08] MEDS: DOCUSATE SODIUM 100 MG (COLACE) CAP PO SCH (09:11)
[2022-02-08] MEDS: polyethylene glycoL POWDER 17 GM (MIRALAX) PACK PO SCH (09:11)
[2022-02-08] MEDS: SENNA W/DOCUSATE (SENOKOT S) TABLET PO SCH (09:11)
[2022-02-08 13:30] VITALS: BP 156/86
--- NOTE | 2022-02-10 13:35 | Therapy Team Discharge Summary ---
Therapy Discharge Summary Discharge Recommendations Date of Discharge Feb 08, 2022 at 13:35 Therapy D/C Recommendations: Bath Aide, Homemaker Support, Other, See Comments (home with hospice and family support) Physical Therapy Roll Left to Right (QC): 3 Sit to Lying (QC): 3 Lying to Sitting/Side of Bed(Q: 3 Sit to Stand (QC): 3 Chair/Cum-aq-Rbdci Xfer(QC): 3 Toilet Transfer (QC): 1 Car Transfer (QC): 2 Does the Patient Walk: Yes Mode of Locomotion: Both Anticipated Mode of Locomotion: Both Walk 10 feet (QC): 3 Walk 50 ft with 2 Turns(QC): 88 Walk 150 ft (QC): 88 Walking 10ft on uneven surface: 88 Distance: 10 Gait Assistive Device: FWW Does the Pt Use a Wheelchair: Yes Wheelchair Distance: 50 Wheel 50 ft with 2 turns (QC): 3 Wheel 150 ft (QC): 88 Type of Wheelchair: Manual #of Steps: 0 1 Step (curb) (QC): 88 4 Steps (QC): 88 12 Steps (QC): 88 Balance Sitting Static: Fair Balance Sitting Dynamic: Poor Balance-Standing Static: Poor Picking up an Object (QC): 88 Occupational Therapy Pt admitted to ARU s/p R hip fracture. At time of evaluation he was dependent for toileting, footwear, lower body dressing, upper body dressing, and bathing and max a for oral care and eating. During his rehab stay, OT focused on balance, AE, compensatory strategies, endurance, strength, activity tolerance, family/caregiver training and safety in order to improve performance and to reduce burden of care on caregiver. Pt made little progress secondary to cognitive deficits and difficulty to remain awake during treatment. 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 See below for current levels of assist. Pt has now discharged from this facility and will be discharged from OT at this time. Decreased Activ Tolerance, Decreased Safety Aware, Decreased UE Strength, Impaired Bed Mobility, Impaired Cognition, Impaired Coordination, Impaired Funct Balance, Impaired Self-Care Skills, Restricted Funct UE ROM Eating (QC): 3 Oral Hygiene (QC): 3 Shower/Bathe Self (QC): 3 Upper Body Dressing (QC): 4 Lower Body Dressing (QC): 2 On/Off Footwear (QC): 1 Toileting Hygiene (QC): 1 PT Half-Way Goals Half-Way Goals PT Mold Puller Goals Time Frame: Feb 14, 2022 Roll Left to Right (QC): 4 Sit to Lying (QC): 4 Lying-Sitting on Side/Bed(QC): 4 Sit to Stand (QC): 4 Chair/Nxl-sd-Olurw Xfer(QC): 4 Car Transfer (QC): 4 Does the Patient Walk: Yes Walk 10 feet (QC): 4 Walk 10ft-Uneven Surface(QC): 4 Walk 50ft with 2 Turns (QC): 4 Walk 150 ft (QC): 3 Does the Pt use WC or Scooter?: Yes Wheel 50 feet with 2 turns (QC: 5 1 Step (curb) (QC): 2 4 Steps (QC): 2 12 Steps (QC): 88 Picking up an Object (QC): 4 OT Half-Way Goals Half-Way Goals Time Frame: Feb 25, 2022 Eating (FIM): 6 Eating (QC): 5 (not met) Oral Hygiene (QC): 5 (not met) Shower/Bathe Self (QC): 3 (met) Upper Body Dressing (QC): 4 (met) Lower Body Dressing (QC): 3 (not met) On/Off Footwear (QC): 2 (not met) Toileting(FIM): 6 Toileting Hygiene (QC): 4 (not met) Toilet/Commode Transfer (QC): 4 1=Demonstrate adherence to instructed precautions during ADL tasks. 2=Patient will verbalize/demonstrate understanding of assistive devices/modifications for ADL. 3=Patient will improve strength/tolerance for activity to enable patient to perform ADL's. Speech Mold Puller Goals Half-Way Goals 1. The patient will tolerate the least restrictive diet consistency without s/s of suspected aspiration. 2. The patient will demonstrate an improvement in cognitive linguistic skills for safe discharge to the least restrictive environment. Kayla Desai OT Feb 10, 2022 13:35
--- NOTE | 2022-02-11 08:40 | Therapy Team Discharge Summary ---
Therapy Discharge Summary Discharge Recommendations Date of Discharge Feb 08, 2022 at 13:35 Therapy D/C Recommendations: Bath Aide, Homemaker Support, Other, See Comments (home with hospice and family support) Physical Therapy Roll Left to Right (QC): 3 Sit to Lying (QC): 3 Lying to Sitting/Side of Bed(Q: 3 Sit to Stand (QC): 3 Chair/Nho-yx-Spgww Xfer(QC): 3 Toilet Transfer (QC): 1 Car Transfer (QC): 2 Does the Patient Walk: Yes Mode of Locomotion: Both Anticipated Mode of Locomotion: Both Walk 10 feet (QC): 3 Walk 50 ft with 2 Turns(QC): 88 Walk 150 ft (QC): 88 Walking 10ft on uneven surface: 88 Distance: 10 Gait Assistive Device: FWW Does the Pt Use a Wheelchair: Yes Wheelchair Distance: 50 Wheel 50 ft with 2 turns (QC): 3 Wheel 150 ft (QC): 88 Type of Wheelchair: Manual #of Steps: 0 1 Step (curb) (QC): 88 4 Steps (QC): 88 12 Steps (QC): 88 Balance Sitting Static: Fair Balance Sitting Dynamic: Poor Balance-Standing Static: Poor Picking up an Object (QC): 88 Occupational Therapy Decreased Activ Tolerance, Decreased Safety Aware, Decreased UE Strength, Impaired Bed Mobility, Impaired Cognition, Impaired Coordination, Impaired Funct Balance, Impaired Self-Care Skills, Restricted Funct UE ROM Eating (QC): 3 Oral Hygiene (QC): 3 Shower/Bathe Self (QC): 3 Upper Body Dressing (QC): 4 Lower Body Dressing (QC): 2 On/Off Footwear (QC): 1 Toileting Hygiene (QC): 1 Speech-Language Pathology Expression of Ideas/Wants: Frequently (2) Understanding Verbal Content: Sometimes Understands(2) Brief Interview-Mental Status: Yes Repetition of Three Words: None (0) Temporal Orientation: Year: Correct (3) Temporal Orientation: Month: Missed by 6 days-1 month (1) Temporal Orientation: Day: Incorrect or No Answer(0) Recall : Wear to say "Sock": No, could not recall (0) Recall : Color: No, could not recall (0) Recall : Bed: No, could not recall (0) Memory/Recall Ability: That he or she is in a hsp/hsp unit PT Fpc Goals Mutuel Teller Goals PT Mutuel Teller Goals Time Frame: Feb 14, 2022 Roll Left to Right (QC): 4 Sit to Lying (QC): 4 Lying-Sitting on Side/Bed(QC): 4 Sit to Stand (QC): 4 Chair/Ier-wf-Lcrsc Xfer(QC): 4 Car Transfer (QC): 4 Does the Patient Walk: Yes Walk 10 feet (QC): 4 Walk 10ft-Uneven Surface(QC): 4 Walk 50ft with 2 Turns (QC): 4 Walk 150 ft (QC): 3 Does the Pt use WC or Scooter?: Yes Wheel 50 feet with 2 turns (QC: 5 1 Step (curb) (QC): 2 4 Steps (QC): 2 12 Steps (QC): 88 Picking up an Object (QC): 4 OT Mutuel Teller Goals Mutuel Teller Goals Time Frame: Feb 25, 2022 Eating (FIM): 6 Eating (QC): 5 (not met) Oral Hygiene (QC): 5 (not met) Shower/Bathe Self (QC): 3 (met) Upper Body Dressing (QC): 4 (met) Lower Body Dressing (QC): 3 (not met) On/Off Footwear (QC): 2 (not met) Toileting(FIM): 6 Toileting Hygiene (QC): 4 (not met) Toilet/Commode Transfer (QC): 4 1=Demonstrate adherence to instructed precautions during ADL tasks. 2=Patient will verbalize/demonstrate understanding of assistive devices/modifications for ADL. 3=Patient will improve strength/tolerance for activity to enable patient to perf orm ADL's. Speech Mutuel Teller Goals Fpc Goals 1. The patient will tolerate the least restrictive diet consistency without s/s of suspected aspiration. GOAL MET. 2. The patient will demonstrate an improvement in cognitive linguistic skills for safe discharge to the least restrictive environment. NOT MET. Due to the patient's underlying and known Alzheimer's dementia diagnosis, cognitive improvement was suspected to be guarded or poor. No cognitive improvement was gained throughout the patient's hospital stay. Expression of Ideas/Wants: Frequently (2) Understanding Verbal Content: Sometimes Understands(2) Brief Interview-Mental Status: Yes Repetition of Three Words: None (0) Temporal Orientation: Year: Correct (3) Temporal Orientation: Month: Missed by 6 days-1 month (1) Temporal Orientation: Day: Incorrect or No Answer(0) Recall : Wear to say "Sock": No, could not recall (0) Recall : Color: No, could not recall (0) Recall : Bed: No, could not recall (0) Memory/Recall Ability: That he or she is in a hsp/hsp unit GINA SELF Feb 11, 2022 08:40
--- NOTE | 2022-02-11 13:48 | Therapy Team Discharge Summary ---
Therapy Discharge Summary Discharge Recommendations Date of Discharge Feb 08, 2022 at 13:35 Therapy D/C Recommendations: Bath Aide, Homemaker Support, Other, See Comments (home with hospice and family support) Physical Therapy Patient came to rehab post right hip fx and repair. Upon evaluation patient performed rolling with min/mod assist, supine <-> sit max assist, sit <-> stand and transfers max assist, car transfer max assist, ambulated 10' with a rolling walker with max assist, and propelled a manual WC 50' with min/mod assist. Patient has been performing bed mobility and transfer training, balance and endurance training, functional strengthening, stair training, gait training, and education. Patient has made poor progress and has not met any of his care home goals. Now, patient performs rolling and supine <-> sit with min/mod assist, sit <-> stand and transfers min/mod assist, ambulated 10' with a rolling walker with min/mod assist. Patient has been discharged from this facility and will be discharged from PT at this time. Roll Left to Right (QC): 3 Sit to Lying (QC): 3 Lying to Sitting/Side of Bed(Q: 3 Sit to Stand (QC): 3 Chair/Akf-tc-Rzfqp Xfer(QC): 3 Toilet Transfer (QC): 1 Car Transfer (QC): 2 Does the Patient Walk: Yes Mode of Locomotion: Both Anticipated Mode of Locomotion: Both Walk 10 feet (QC): 3 Walk 50 ft with 2 Turns(QC): 88 Walk 150 ft (QC): 88 Walking 10ft on uneven surface: 88 Distance: 10 Gait Assistive Device: FWW Does the Pt Use a Wheelchair: Yes Wheelchair Distance: 50 Wheel 50 ft with 2 turns (QC): 3 Wheel 150 ft (QC): 88 Type of Wheelchair: Manual #of Steps: 0 1 Step (curb) (QC): 88 4 Steps (QC): 88 12 Steps (QC): 88 Balance Sitting Static: Fair Balance Sitting Dynamic: Poor Balance-Standing Static: Poor Picking up an Object (QC): 88 Occupational Therapy Decreased Activ Tolerance, Decreased Safety Aware, Decreased UE Strength, Impaired Bed Mobility, Impaired Cognition, Impaired Coordination, Impaired Funct Balance, Impaired Self-Care Skills, Restricted Funct UE ROM Eating (QC): 3 Oral Hygiene (QC): 3 Shower/Bathe Self (QC): 3 Upper Body Dressing (QC): 4 Lower Body Dressing (QC): 2 On/Off Footwear (QC): 1 Toileting Hygiene (QC): 1 PT Lehr Attendant Goals Half-Way Goals PT Half-Way Goals Time Frame: Feb 14, 2022 Roll Left to Right (QC): 4 Sit to Lying (QC): 4 Lying-Sitting on Side/Bed(QC): 4 Sit to Stand (QC): 4 Chair/Xoa-st-Igkhq Xfer(QC): 4 Car Transfer (QC): 4 Does the Patient Walk: Yes Walk 10 feet (QC): 4 Walk 10ft-Uneven Surface(QC): 4 Walk 50ft with 2 Turns (QC): 4 Walk 150 ft (QC): 3 Does the Pt use WC or Scooter?: Yes Wheel 50 feet with 2 turns (QC: 5 1 Step (curb) (QC): 2 4 Steps (QC): 2 12 Steps (QC): 88 Picking up an Object (QC): 4 OT Lehr Attendant Goals Lehr Attendant Goals Time Frame: Feb 25, 2022 Eating (FIM): 6 Eating (QC): 5 (not met) Oral Hygiene (QC): 5 (not met) Shower/Bathe Self (QC): 3 (met) Upper Body Dressing (QC): 4 (met) Lower Body Dressing (QC): 3 (not met) On/Off Footwear (QC): 2 (not met) Toileting(FIM): 6 Toileting Hygiene (QC): 4 (not met) Toilet/Commode Transfer (QC): 4 1=Demonstrate adherence to instructed precautions during ADL tasks. 2=Patient will verbalize/demonstrate understanding of assistive devices/modifications for ADL. 3=Patient will improve strength/tolerance for activity to enable patient to perform ADL's. Speech Lehr Attendant Goals Lehr Attendant Goals 1. The patient will tolerate the least restrictive diet consistency without s/s of suspected aspiration. GOAL MET. 2. The patient will demonstrate an improvement in cognitive linguistic skills for safe discharge to the least restrictive environment. NOT MET. Due to the patient's underlying and known Alzheimer's dementia diagnosis, cognitive improvement was suspected to be guarded or poor. No cognitive improvement was gained throughout the patient's hospital stay. Expression of Ideas/Wants: Frequently (2) Understanding Verbal Content: Sometimes Understands(2) Brief Interview-Mental Status: Yes Repetition of Three Words: None (0) Temporal Orientation: Year: Correct (3) Temporal Orientation: Month: Missed by 6 days-1 month (1) Temporal Orientation: Day: Incorrect or No Answer(0) Recall : Wear to say "Sock": No, could not recall (0) Recall : Color: No, could not recall (0) Recall : Bed: No, could not recall (0) Memory/Recall Ability: That he or she is in a hsp/hsp unit JELANI AMES PT Feb 11, 2022 13:48
== END 2022-02-08 13:35 | disposition hospice, home (50) | DRG 559 ==
PROVIDERS: ADMIT Internal Medicine; ATTEND Internal Medicine
DX: S72.011D Unspecified intracapsular fracture of right femur, subsequent encounter for closed fracture with routine healing (principal); J18.9 Pneumonia, unspecified organism; C20 Malignant neoplasm of rectum; N17.9 Acute kidney failure, unspecified; G30.9 Alzheimer's disease, unspecified; F02.80 Dementia in other diseases classified elsewhere, unspecified severity, without behavioral disturbance, psychotic disturbance, mood disturbance, and anxiety; K59.09 Other constipation; Z66 Do not resuscitate; N40.0 Benign prostatic hyperplasia without lower urinary tract symptoms; R32 Unspecified urinary incontinence; E11.40 Type 2 diabetes mellitus with diabetic neuropathy, unspecified; E78.2 Mixed hyperlipidemia; I12.9 Hypertensive chronic kidney disease with stage 1 through stage 4 chronic kidney disease, or unspecified chronic kidney disease; E11.22 Type 2 diabetes mellitus with diabetic chronic kidney disease; N18.9 Chronic kidney disease, unspecified; R54 Age-related physical debility; I35.1 Nonrheumatic aortic (valve) insufficiency; I27.20 Pulmonary hypertension, unspecified; F41.9 Anxiety disorder, unspecified; F32.A Depression, unspecified; M19.90 Unspecified osteoarthritis, unspecified site; R13.10 Dysphagia, unspecified; E87.6 Hypokalemia; R09.02 Hypoxemia; R15.9 Full incontinence of feces; W19.XXXD Unspecified fall, subsequent encounter; Z86.73 Personal history of transient ischemic attack (TIA), and cerebral infarction without residual deficits; Z79.84 Long term (current) use of oral hypoglycemic drugs; Z91.81 History of falling; Z79.82 Long term (current) use of aspirin; Z87.891 Personal history of nicotine dependence; Z88.8 Allergy status to other drugs, medicaments and biological substances; Z79.899 Other long term (current) drug therapy
CPT/HCPCS: 36415; 71045; 73501; 80053; 81000; 82947; 84145; 85007; 85025; 85027; 94760